=== PATIENT | female | born 1950 | race Caucasian/White ===

== ENCOUNTER 2016-05-12 14:48 | Emergency (ER) | payer MEDICARE, MEDICAID ==
[~2016-05-12] VITALS: Ht 167.6 cm; Wt 92.5 kg
[~2016-05-12 14:48] MED LIST: ALBUTEROL2.5 MG/NEB IN; ALDACTONE50 MG PO; AMOXICILLIN AND1 TA2 PO; ATENOLOL25 MG PO; ATENOLOL50 MG PO; AUGMENTIN 875-1 EACH PO; B COMPLEX & B121 TAB PO; B12-METHYL1000 MCG PO; CARAFATE 11 GM/10 ML PO; CARAFATE1 GM PO; CLEARLAX17 GM/Dose PO; COLCHICINE0.6 MG PO; COLCRYS0.6 M1 PO; CORTISPORIN (GE10 M1 OT; CYMBALTA60 MG PO; DILAUDID2 MG PO; DULERA1 AR1 IH; ESTRACE1 MG PO; FIBER CHOICE1 CTB PO; FUROSEMIDE 40MG40 MG PO; GABAPENTIN 400400 MG PO; GABAPENTIN 600600 MG PO; GABAPENTIN300 MG PO; HYDROCODONE1 TABLET PO; K-DUR 20MEQ TA20 MEQ PO; KLOR-CON 1010 MEQ PO; LANSOPRAZOLE30 MG PO; LASIX 20MG. TAB20 MG PO; LASIX40 MG PO; LEVAQUIN500 MG PO; LIPITOR40 M1 PO; LIPITOR80 MG PO; LISINOPRIL 10MG10 MG PO; LISINOPRIL 5MG T5 MG NG; LISINOPRIL10 MG PO; LISINOPRIL2.5 MG PO; LORTAB 10/3251 TAB PO; LORTAB 5/3251 TAB PO; LYRICA100 MG PO; MAG-OX 400400 MG PO; MAG-OX 400MG T400 MG PO; MEDROL 4MG. DOSE4 MG PO; MELATONIN10 M2 PO; MELOXICAM15 MG PO; METFORMIN500 MG PO; METOLAZONE 2.52.5 MG PO; METOLAZONE5 MG PO; METOPROLOL SUCC25 M1 PO; MIRALAX17 GM/PACK PO; NITROGLYCERIN0.4 MG SL; NITROLINGU14.5 GM/BO OR; NORVASC 10MG. T10 MG PO; OMEPRAZOLE40 MG PO; OMNICEF 300 MG300 MG PO; OXYGEN XX; PAROXETINE20 MG NG; PAROXETINE20 MG PO; PAXIL30 MG PO; PAXIL40 MG PO; PERCOCET 325 MG1 TA1 PO; PLAVIX75 MG PO; POTASSIUM CHLO20 ME2 PO; POTASSIUM PO; PREDNICOT10 MG PO; PREDNISONE 20MG20 MG PO; PREMARIN 0.3MG0.3 MG PO; PREMARIN 0.9MG0.9 MG PO; PREMARIN0.625 MG PO; PROTONIX 40MG T40 MG PO; REQUIP2 MG PO; REQUIP4 MG PO; ROPINIROLE12 MG PO; SEROQUEL XR400 MG PO; SEROQUEL50 MG PO; SINGULAIR10 MG PO; SKELAXIN 800MG800 MG PO; SPIRONOLACTONE25 MG NG; SPIRONOLACTONE25 MG PO; SPIRONOLACTONE50 MG PO; SUCRALFATE 1GM T1 GM NG; SYMBICORT1 AE1 IH; TAMIFLU 75MG CA75 MG PO; TESSALON PERLE100 M1 PO; TYLENOL ES500 MG PO; ULORIC80 MG PO; ULTRAM50 MG PO; VENTOLIN H0.09 MG/Ac IH; VERAPAMIL PO; VICODIN 5/500 T1 TAB PO; VITAMIN D50000 I1 PO; ZITHROMAX TRI-500 M1 PO; ZITHROMAX Z PA250 MG PO; ZITHROMAX Z-PA250 M1 PO; ZOFRAN 8MG TABLE8 MG PO; ZYRTEC ALLERGY10 MG PO; [UNRECOGNIZED DRUG - OTHER] IN; [UNRECOGNIZED DRUG - OTHER] IN
[2016-05-12 15:11] LABS: HEMOGLOBIN 12.3 g/dL (12.2-16.2)
[2016-05-12 15:12] LABS: LYMPH # 1.3 K/mm3 (0.7-4.5); LYMPH % 16.5 % (10-50.0)
--- NOTE | 2016-05-12 15:20 | Emergency Room Report ---
History of Present Illness Time Seen by MD Marcum Presenting Problem in Triage Pt arrived:Walked Presenting Problem:PT C/O ABD PAIN THAT STARTED YESTERDAY. 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 N Clinical Suspician of Infection? N Mental Status: 1 - Regular (Normal Baseline) Sepsis Risk:Low Sepsis Risk Have you (or family members/close friends) recently traveled outside the [place]? N If Yes, where/when: Have you had exposure to infectious disease within the past month? N TB? Other? Specify: Source patient, RN notes reviewed Exam Limitations no limitations Comment complains of abd pain since yesterday in the epigastrium and says she is going to the Bathroom a lot but it is not diarrhea. no blood noticed in stool and no vomiting. She is nauseated and says she may have a stomach flud Cardiac Chest Pain Chest pain indicative of cardiac No ALLERGIES Coded Allergies: Sulfa (Sulfonamide Antibiotics) (Intermediate, I-HIVES 09/10/15) Home Medications Active Scripts Cetirizine Hcl (Zyrtec) 10 MG PO DAILY #15 SGL Prov: 09/10/15 Amoxicillin/Potassium Clav (Augmentin 875-125 Tablet) 1 EACH PO BID #20 TAB Prov: 11/15/15 Methylprednisolone (Medrol Dose Yann) 4 MG PO UD #1 YANN Prov: 11/15/15 Reported Medications Paroxetine (Paxil) 40 MG PO QHS Clopidogrel Bisulfate (Plavix) 75 MG PO DAILY Metformin HCL (Metformin) 500 MG PO BID #60 TAB Albuterol Sulfate (Ventolin Hfa) 2 PUFF IH QIDP Albuterol-Ipratropium (Duoneb 0.5 MG-3 MG/3 Ml Soln) 3 ML IN TID Sucralfate (Carafate) 1 GM PO TID Lansoprazole (Lansoprazole) 30 MG PO DAILY Device (Oxygen (Concentrator)) 1 UNIT XX UD #2 Melatonin 10 MG PO QHS Quetiapine Fumarate (Seroquel Xr) 400 MG PO QHS ESTROGENS, CONJUGATED (Premarin) 0.45 MG PO DAILY Furosemide (Furosemide 40MG Tablet) 40 MG PO DAILY LISINOPRIL (Lisinopril) 5 MG PO DAILY Montelukast Sodium (Singulair) 10 MG PO QHS MAGNESIUM OXIDE (Magnesium Oxide) 400 MG PO QHS GABAPENTIN (Gabapentin) 400 MG PO QID Atorvastatin Calcium (Atorvastatin) 80 MG PO QHS ROPINIROLE HCL (Requip XL) 8 MG PO QHS Spironolactone (Spironolactone) 25 MG PO BID MOMETASONE/FORMOTEROL (Dulera 200 Mcg/5 Mcg Inhaler) 2 PUFFS IH BID #13 History Medical History General CAD? No Angina: Yes [place]: No Hypertension? Yes Hyperlipidemia? Yes CHF? Yes DVT? No PE? No COPD? Yes Asthma? Yes Anemia? No GERD? No Gastric ulcers? No GI Bleed? No Hernia? No Thyroid Problems? No Hypothyroidism? No CVA? Yes Seizures? Yes Diabetes? Yes Insulin Dependent: No Insulin Pump: No Home FSBS? No Renal Insuffiency? No End Stage Renal Disease? No UTI? Yes Stones? No BPH? No GB Disease: No Nephritic Syndrome? No Asplenia? No Hepatitis? No Sickle Cell Disease? No Arthritis? No Migraines? No Cataracts? Yes Glaucoma? No MRSA? No HIV? No TB? No Anxiety? No Depression? No Cancer? Yes Site: LUNG, SKIN CA More? No Immunization Hx DT/Tetanus 10/15/12 Flu [id number] Flu Season Pneumonia Received In Past Surgical Hx Previous Surgery?Y L-LUMPECTOMY X2 TEETH EXTRACTED, UPPER TUMOR FROM R WRIST Tubal Ligation R-UPPER AND LOWER LOBECTO HYSTERECTOMY SKIN CANCER OF NOSE BI-LAT CATARACTS RIGHT ANKLE Family History Family Hx Diabetes Yes CAD Yes Hypertension Yes Hyperlipidemia Yes Cancer Yes TB No Social History Smoking Hx Smoker: Current Every Day Smoker Tobacco: Yes Type Cigarettes Packs/day < 1 Pack Alcohol Alcohol: No Review of Systems All Other Systems Reviewed and Negative Constitutional see HPI Gastrointestinal see HPI Physical Exam Vital Signs Vital Signs Date Time Temp Pulse Resp B/P Pulse O2 O2 Flow FiO2 Ox Delivery Rate 05/12 1733 87 16 157/79 96 05/12 1643 92 16 131/67 96 05/12 1552 95 16 150/74 95 05/12 1528 108 16 157/79 95 05/12 1451 98.5 110 16 170/99 95 General Appearance normal appearance, mild distress Respiratory Status No: respiratory distress. Lung Sounds bilateral: normal breath sounds. Cardiovascular normal exam, regular rate/rhythm, tachycardia Gastrointestinal normal bowel sounds, no guarding, no rebound, tenderness (in epigastrium) Neurologic alert, early intervention specialist II-XII nml as tested Medical Decision Making LABS/Meds/Orders Pt receiving controlled substance in ED? No Results/Orders Laboratory Tests 05/12/16 1634: Urine Color YELLOW, Urine Appearance CLEAR, Urine pH 5.5, Ur Specific [place] 1.010, Urine Protein NEGATIVE, Urine Ketones NEGATIVE, Urine Blood NEGATIVE, Urine Nitrate NEGATIVE, Urine Bilirubin NEGATIVE, Urine Urobilinogen 0.2, Ur Leukocyte Esterase NEGATIVE, Urine RBC 3-5, Urine WBC 3-5, Ur Squamous Epith Cells 3-5, Urine Bacteria TRACE, Urine Glucose NEGATIVE 05/12/16 1530: Chlamy pneum (TEM-PCR) NOT DETECTED, Adenovirus (PCR) NOT DETECTED, B. pertussis DNA (PCR) NOT DETECTED, Coronavirus OC43 (PCR) NOT DETECTED, Coronavirus HKU1 ( PCR) NOT DETECTED, Coronavirus 229E (PCR) NOT DETECTED, Coronavirus NL63 (PCR) NOT DETECTED, Human Metapneumovirus NOT DETECTED, Influenza A (H1) PCR NOT DETECTED, Influ A (H1N1/09) PCR NOT DETECTED, Influenza A (H3) PCR NOT DETECTED, Influenza Type A (PCR) NOT DETECTED, Influenza Type B (PCR) NOT DETECTED, M. pneumoniae (PCR) NOT DETECTED, Parainfluenza 1 (PCR) NOT DETECTED, Parainfluenza 2 (PCR) NOT DETECTED, Parainfluenza 3 (PCR) NOT DETECTED, Parainfluenza 4 (PCR) NOT DETECTED, RSV (PCR) NOT DETECTED, Entero/Rhino (PCR) NOT DETECTED 05/12/16 1458: Sodium 131 L, Potassium 4.5, Chloride 96 L, Carbon Dioxide 28, BUN 27 H, Creatinine 1.1 H, Estimated Creat Clear 76, Estimated GFR (MDRD) 50 L, Glucose 111 H, Calcium 8.6, Total Bilirubin 0.3, AST 21, ALT 32, Alkaline Phosphatase 150 H, Total Protein 7.5, Albumin 3.2 L, Globulin 4.3 H, Albumin/Globulin Ratio 0.7 L, Amylase 26, Lipase 86, WBC 8.0, RBC 4.83, Hgb 12.3, Hct 37.2, MCV 77.1 L, RDW 17.0, Plt Count 333, Gran % 78.1, Gran # 6.2, Lymphocytes % 16.5, Monocytes % 5.4, Lymphocytes # 1.3, Monocytes # 0.4, PUBS MCHC 33.1, MCH 25.5 L Current Medication Orders Sig/Curry Start time Last Medication Dose Route Stop Time Status Admin Diatrizoate Meglum/ 0 .STK-MED ONE 05/12 1545 DC Diatrizoate Sod .ROUTE Pantoprazole Sodium 0 .STK-MED ONE 05/12 1545 DC IV Sodium Chloride 1,000 ML .STK-MED ONE 05/12 1545 DC IV Ondansetron HCl 0 .STK-MED ONE 05/12 1544 DC .ROUTE Diatrizoate Meglum/ 30 ML ONCE ONE 05/12 1530 DC 05/12 Diatrizoate Sod PO 05/12 1531 1549 Ondansetron HCl 4 MG ONCE ONE 05/12 1530 DC 05/12 IV 05/12 1531 1549 Pantoprazole Sodium 40 MG ONCE ONE 05/12 1530 DC 05/12 IV 05/12 1531 1549 Sodium Chloride 1,000 ML .Q1H1M 05/12 1530 DC 05/12 IV 05/12 1630 1550 Sodium Chloride 10 ML PRN PRN 05/12 1530 AC IV 05/13 1521 Sodium Chloride 10 ML ONCE ONE 05/12 1530 DC IV 05/12 1531 Sodium Chloride 10 ML PRN PRN 05/12 1500 AC IV 05/13 1459 Orders Procedure Date/time Status DIET-NOTHING BY MOUTH 05/[address] ABD & PELVIS W/O CONTRAST 05/[address] ABD/PELVIS REQ 05/12 1522 Complete UPPER RESPIRATORY PANEL, PCR 05/12 1522 Complete URINALYSIS/COMPLETE 05/12 1522 Complete IV SALINE LOCK 05/12 1459 Active LIPASE 05/12 1459 Complete CBC WITH AUTO DIFF 05/12 1459 Complete CHEM 12 PROFILE 05/12 1459 Complete AMYLASE 05/12 1459 Complete XRAY/CT/US XRAY/CT/US CT abdomen, pelvis CT interpretation by discussed w/radiologist Time results known: 1854 CT Results No acute finding...I feel she has sludge in gallbladder Departure Departure Time of Disposition 1855 Disposition DC Home or Self Care(routine) Clinical Impression Primary Impression: Abdominal pain Qualifiers: Abdominal location: generalized Qualified Code: R10.84 - Generalized abdominal pain Condition STABLE Referrals Abhishek Breaux MD (Family): 3 Days-Call Office Patient Instructions DI for Abdominal Pain-Adult Additional Instructions Follow up iwth Dr. Breaux to get US of Gallbladder and if that is negative for stones, get a HIDA scan to check for a diseased GB. Discharge Counseling Counseled pt/family regarding diagnosis, test results, medications/RX, home care, follow up needs Prescriptions Current Visit Scripts ONDANSETRON HCL (Zofran 4MG Tab) 4 MG PO Q6HP PRN NAUSEA AND VOMITING #40 TAB ED Critical Care Critical Care No If Critical Care minutes are documented, the time involved in the performance of seperately reportable procedures was not counted toward critical care time documented. I directly delivered medical care to this critically ill and/or injured patient. Timely evaluation and treatment was necessary to address the significant organ system(s) dysfunction present in this patient. at 1850
[2016-05-12 15:37] LABS: CORONAVIRUS 229E NOT DETECTED (NOT DETECTE); CORONAVIRUS HKU 1 NOT DETECTED (NOT DETECTE); CORONAVIRUS NL63 NOT DETECTED (NOT DETECTE); CORONAVIRUS OC43 NOT DETECTED (NOT DETECTE); RHINOVIRUS/ENTEROVIRUS NOT DETECTED (NOT DETECTE)
[2016-05-12 16:39] LABS: URINE BILIRUBIN - DIPSTICK NEGATIVE (NEG); URINE BLOOD NEGATIVE (NEG)
[2016-05-12] MEDS ORDERED: ZOFRAN4 MG PO (18:58)
[2016-05-12 19:10] VITALS: BP 157/79
--- NOTE | 2016-05-13 06:37 | RADIOLOGY REPORT PS360 ---
CT ABD PELVIS W/O CONTRAST CLINICAL INDICATION: Lower abdominal pain ABD PAIN ORDERING PHYSICIAN: Darius Sandoval MD PATIENT AGE: 65 years COMPARISON: 01/13/2013 TECHNIQUE: Axial images obtained with sagittal and coronal reformats. PROCEDURE: Oral Contrast: None IV Contrast: None . FINDINGS: Lower thorax: Centrilobular emphysematous change. There are noncalcified nodules in the lung bases measured at 6 mm in the left upper lobe and 4 mm in the left lower lobe ABDOMEN: Liver: No masses or biliary dilatation. Gallbladder: Nondistended. No radio opaque stones. Pancreas: No masses or peripancreatic fluid collections. Spleen: Unremarkable. Adrenals: Unremarkable Kidneys/ureters: No masses. No renal calculi. No hydronephrosis. No perinephric fluid collections. No ureteral dilatation or obvious ureteral calculi. Stomach bowel: Diverticulum of the duodenal C-loop Appendix: No evidence of appendicitis. PELVIS: Reproductive: Hysterectomy Bladder: Nondistended. No obvious stones or masses. ABDOMEN & PELVIS: Peritoneum: No abnormal fluid collections. No obvious inflammatory changes. No free air. Lymph nodes: No enlarged lymph nodes apparent. Vasculature: No evidence of abdominal aortic aneurysm. No retroperitoneal hemorrhage evident. Bones: Old right lateral rib fractures IMPRESSION: 1. No acute intra-abdominal or pelvic pathology. 2. Nonspecific nonacute findings as described above
[2016-06-17] MEDS ORDERED: ZITHROMAX Z PA250 MG PO (10:30)
[2016-06-17] MEDS ORDERED: PREDNISONE 20MG20 MG PO (10:30)
[2016-07-06] MEDS ORDERED: ZOFRAN ODT4 MG PO (18:58)
[2016-07-06] MEDS ORDERED: DIABETIC T100 MG/51 PO (18:58)
[2016-07-06] MEDS ORDERED: ZITHROMAX Z PA250 MG PO (18:58)
[2016-07-12] MEDS ORDERED: HYDROCODONE/ACE1 TA5 PO (14:02)
[2016-07-13] MEDS ORDERED: DILTIAZEM HCL90 MG PO (08:54)
[2016-07-13] MEDS ORDERED: ELIQUIS2.5 MG PO (08:54)
[2016-07-17] MEDS ORDERED: KEFLEX 500MG.500 MG PO (08:57)
== END 2016-05-12 19:11 | disposition home or self-care (01) ==
LOC: ER 14:48
PROVIDERS: General Practice
DX: R10.84 Generalized abdominal pain (principal); Z72.0 Tobacco use; E11.9 Type 2 diabetes mellitus without complications; J44.9 Chronic obstructive pulmonary disease, unspecified; I10 Essential (primary) hypertension
CPT/HCPCS: J2405

== ENCOUNTER → 2016-05-23 | Outpatient (CLI) | payer MEDICARE, MEDICAID ==
[~2016-05-23] MED LIST changes: +DIABETIC T100 MG/51 PO; +DILTIAZEM HCL90 MG PO; +ELIQUIS2.5 MG PO; +HYDROCODONE/ACE1 TA5 PO; +KEFLEX 500MG.500 MG PO; +LEVOTHYROXINE0.05 MG PO; +TRIAMCINOL80 GM/TUBE TP; +ZOFRAN ODT4 MG PO; +ZOFRAN4 MG PO
--- NOTE | 2016-05-23 10:46 | RADIOLOGY REPORT PS360 ---
US RUQ-(ABD LTD)1ORGAN/QUAD/FU HISTORY: Right upper quadrant pain with nausea GB STONE ORDERING PHYSICIAN: Abhishek Breaux MD PATIENT AGE: 65 years COMPARISON: None FINDINGS: PANCREAS: Unremarkable. No obvious mass or abnormal fluid collection. No ductal dilatation LIVER: No focal liver lesions demonstrated. Homogeneous echogenicity. No intrahepatic biliary ductal dilatation evident RIGHT KIDNEY: Unremarkable. Normal size and echogenicity. No hydronephrosis GALLBLADDER: No gallstones, gallbladder wall thickening, pericholecystic fluid, or biliary dilatation. IMPRESSION: Negative gallbladder/right upper quadrant ultrasound
== END ==
LOC: RAD 07:49
DX: K80.20 Calculus of gallbladder without cholecystitis without obstruction (principal)

== ENCOUNTER 2016-07-24 15:38 | Observation (INO) | payer MEDICARE, MEDICAID ==
[~2016-07-24] VITALS: Ht 170.2 cm; Wt 108.0 kg
[~2016-07-24 15:38] MED LIST changes: -LEVOTHYROXINE0.05 MG PO; -TRIAMCINOL80 GM/TUBE TP
[2016-07-24 17:31] VITALS: BP 127/68
[2016-07-24 17:47] VITALS: BP 127/68
--- NOTE | 2016-07-24 17:49 | RADIOLOGY REPORT PS360 ---
CHEST(2 VIEWS-NOT PORTABLE) COMPARISON: PA and lateral chest 07/12/2016 HISTORY: Persistent cough TECHNIQUE: AP and lateral upright chest FINDINGS: The lung hunt are fairly well-expanded. There are surgical clips in the right hilar region as noted previously. There is mild deformity of the right fifth rib as noted previously. There is mild generalized cardio megaly without evidence of failure. There is no pleural fluid. IMPRESSION: Nonacute chest findings
[2016-07-24 20:17] VITALS: BP 123/53
[2016-07-24 20:48] VITALS: BP 123/53
[2016-07-25] VITALS (8 sets, daily range): BP systolic 122–165; BP diastolic 63–78
[2016-07-25 06:31] LABS: LYMPH % 17.3 % (10-50.0)
[2016-07-25 06:38] LABS: HEMOGLOBIN 9.5 g/dL (12.2-16.2)
--- NOTE | 2016-07-25 07:17 | PHARMACY CLINIC NOTE ---
Patient Demographics Patient Demographics Admission date: 07/24/16 Date: 07/25/16 Time: 0717 Allergies Coded Allergies: Sulfa (Sulfonamide Antibiotics) (Intermediate, I-HIVES 07/17/16) HEIGHT- FT: 5 IN: 7.00 K.437 VTE General Information Labs: Laboratory Tests 07/25 0620 Hematology Hgb (12.2 - 16.2 g/dL) 9.5 L Hct (37.0 - 47.0 %) 30.1 L Plt Count (142 - 424 K/mm3) 332 Disclaimer The following section includes nursing documentation that has been pulled in for pharmacy review. Patient's VTE score: 7 Patient's VTE Risk: MOD RISK Clinical trial participant? No VTE prophylaxis [id number] [id number] VTE prophylaxis ordered? Yes Type of prophylaxis/treatment: Lovenox at 0717
--- NOTE | 2016-07-25 08:11 | ACUTE CARE PROGRESS NOTE (QUA) ---
Progress Notes Subjective Date 07/25/16 Time 0807 Note Patient had a fairly good diuresis. His breathing somewhat better. Heart rate remains irregular but rate controlled, breathing much easily. Legs are improved and softer but continued to be afflicted with significant edema. Objective Findings Last VS-Temp:98.5 B/P:134/74 Pulse:97 Resp:20 SaO2:97 OXYGEN Last weight lbs:239 oz:1 K.437 Method:Bed Scales Assessment/Plan Problem List 1. Atrial fibrillation 2. Peripheral edema Patient condition Improving, More diuresis. Check with cardiology consult. This inpt stay is expected to cross 2 MNs from start of care Yes at 0811
[2016-07-25] MEDS ORDERED: LEVOTHYROXINE0.05 MG PO (09:42)
--- NOTE | 2016-07-25 16:15 | CONSULT NOTE ---
Standard Demographics Patient Demo Date of Consultation: 07/25/16 Referring Provider: Abhishek Breaux MD Reason for Consultation: PULMONARY EDEMA, PERIPHERAL EDEMA, ATRIAL FIBRILLATION, PRIMARY DIAGNOSIS: PULMONARY EDEMA AND PERIPHERAL EDEMA Problem list Problem list: 1. Predominantly right-sided heart failure 2. Chronic atrial fibrillation 3. Peripheral edema. 4. Chronic obstructive pulmonary disease 5. History of anemia/gastrointestinal bleed 6. Obesity History of present illness: History of present illness: Chief complaint Shortness of breath with physical activity, lower extremity edema. Briefly Mrs. Hartman is a 65-year-old female with known history of chronic atrial fibrillation, not a good candidate for systemic anticoagulation in the past due to gastrointestinal blood loss and anemia, chronic obstructive pulmonary disease , who presents to the hospital with increasing shortness of breath with minimal physical activity and worsening lower extremity edema. She describes no orthopnea or PND, she describes no exertional chest pain. She had an echocardiogram done on the previous admission which showed an ejection fraction of 50 percent, technically limited study. She also complains of intermittent some blood in her stool. Past Medical History: General: Hypertension Yes CVA No Seizures Yes TB No COPD Yes Asthma Yes Diabetes Yes Insulin Dependent No Insulin Pump No Angina No [place] No Hyperlipidemia Yes Urinary Yes Cancer Yes Rheumatic H.D. No Ulcers No MRSA No GB Disease No Other DEPRESSION,GOUT Additional hx [place] Past Surgical HX: Previous Surgery?Y L-LUMPECTOMY X2 TEETH EXTRACTED, UPPER TUMOR FROM R WRIST Tubal Ligation R-UPPER AND LOWER LOBECTO HYSTERECTOMY SKIN CANCER OF NOSE BI-LAT CATARACTS RIGHT ANKLE Allergies Coded Allergies: Sulfa (Sulfonamide Antibiotics) (Intermediate, I-HIVES 07/17/16) Home medications: Active Scripts DILTIAZEM HCL (Diltiazem Hcl) 90 MG PO TID #90 TAB Ref 1 Prov: 07/13/16 Apixaban (Eliquis) 2.5 MG PO BID #60 TAB Ref 1 Prov: 07/13/16 Reported Medications Paroxetine (Paxil) 40 MG PO QHS Conjugated Estrogens (Premarin 0.3MG. Tablet) 0.3 MG PO DAILY LISINOPRIL (Lisinopril) 2.5 MG PO DAILY ROPINIROLE HCL (Ropinirole) 12 MG PO QHS Levothyroxine Sodium (Levothyroxine) 0.05 MG PO DAILY GABAPENTIN (Gabapentin) 400 MG PO BID HYDROCODONE/ACETAMINOPHEN (Hydrocodon-Acetaminophn 10-325) 1 TAB PO TID Metformin HCL (Metformin) 500 MG PO BID #60 TAB Albuterol Sulfate (Ventolin Hfa) 2 PUFF IH QIDP Albuterol-Ipratropium (Duoneb 0.5 MG-3 MG/3 Ml Soln) 3 ML IN TID Sucralfate (Carafate) 1 GM PO TID Lansoprazole (Lansoprazole) 30 MG PO DAILY Device (Oxygen (Concentrator)) 1 UNIT XX UD #2 Melatonin 10 MG PO QHS Quetiapine Fumarate (Seroquel Xr) 400 MG PO QHS Furosemide (Furosemide 40MG Tablet) 40 MG PO DAILY Montelukast Sodium (Singulair) 10 MG PO QHS MAGNESIUM OXIDE (Magnesium Oxide) 400 MG PO QHS Atorvastatin Calcium (Atorvastatin) 80 MG PO QHS Spironolactone (Spironolactone) 25 MG PO BID MOMETASONE/FORMOTEROL (Dulera 200 Mcg/5 Mcg Inhaler) 2 PUFFS IH BID #13 Current Medications: Current Medications Digoxin 0.125 MG DAILY PO Atorvastatin Calcium 80 MG QHS PO Paroxetine HCl 40 MG QHS PO Ropinirole HCl 8 MG QHS PO Diltiazem HCl 60 MG Q6H PO Acetaminophen 0 .STK-MED ONE PO (DC) Spironolactone 25 MG DAILY PO Spironolactone 0 .STK-MED ONE .ROUTE (DC) Acetaminophen/Hydrocodone Bitart 0 .STK-MED ONE PO (DC) Albuterol/Ipratropium 3 ML TIDRT INH Acetaminophen/Hydrocodone Bitart 0 .STK-MED ONE PO (DC) Acetaminophen/Hydrocodone Bitart 1 TAB TID PO Albuterol/Ipratropium 3 ML TID INH (DC) Diltiazem HCl 60 MG TID PO (DC) Gabapentin 400 MG BID PO Acetaminophen 650 MG Q6HP PRN PO Furosemide 0 .STK-MED ONE .ROUTE (DC) Furosemide 100 MG ONCE ONE IV (DC) Sodium Chloride 10 ML PRN PRN IV Acetaminophen/Hydrocodone Bitart 1 TAB ONCE ONE PO (DC) Diagnostic Test (Pha) 1 EACH W/MEALS&HS FS Insulin Human [rDNA origin] SEE ADMIN CRITERIA FOR MEDIUM INTENSITY W/MEALS&HS SC Enoxaparin Sodium 0 .STK-MED ONE SC (DC) Furosemide 100 MG ONCE ONE IV (DC) Influenza Virus Vaccine Quadrival 0.5 ML PRN PRN IM Nicotine 21 MG DAILYP PRN TD Enoxaparin Sodium 40 MG DAILY SC Immunization HX DT/Tetanus 10/15/12 Flu 2015-FSN Pneumonia RECEIVED IN PAST TB Test in last year No Family history Family HX Diabetes Yes CAD Yes Hypertension Yes Hyperlipidemia Yes Cancer Yes TB No Social Hx: Smoking HX Tobacco Yes Type Cigarettes Packs/day < 1 PACK Are you/the child exposed to second-hand smoke: Yes Alcohol Alcohol: No Hx of Drug Use Drug Use? No Review of systems: Constitutional see HPI. Respiratory No: SOB with excertion, SOB at rest, wheezing. Cardiovascular see HPI Gastrointestinal/Abdominal see HPI Genitourinary No: see HPI. Musculoskeletal joint pain. Neurological No: no symptoms reported. Exam: Admission Vital Signs: 1ST Vital Signs Result Date Time Pulse Ox 93 07/24 1731 O2 Delivery ROOM AIR 07/24 1731 B/P 127/68 07/24 1731 Temp 97.6 07/24 1731 Pulse 81 07/24 1731 Resp 20 07/24 1731 O2 Flow Rate 2 07/245 Last Vital Signs: Vital Signs Result Date Time O2 Flow Rate 2 07/25 1521 Resp 20 07/25 1351 Pulse Ox 95 07/25 1240 B/P 135/72 07/25 1240 O2 Delivery OXYGEN 07/25 1240 Temp 97.4 07/25 1240 Pulse 84 07/25 1240 Exam General appearance: normal appearance, alert, active, awake Cardiovascular: irregularly irregular, peripheral edema Respiratory: basilar rales, diminished breath sounds, rhonchi ABD: non-distended, normal bowel sounds Extremities: edema Musculoskeletal: normal exam Skin: dry, intact Laboratory data: Laboratory Tests 07/25/16 1153: POC Glucose 106 07/25/16 0620: Sodium 134 L, Potassium 4.5, Chloride 96 L, Carbon Dioxide 35 H, BUN 43 H, Creatinine 1.3 H, Estimated Creat Clear 76, Estimated GFR (MDRD) 41 L, Glucose 88, Calcium 9.0, WBC 11.7 H, RBC 3.84 L, Hgb 9.5 L, Hct 30.1 L, MCV 78.6 L, RDW 15.0, Plt Count 332, MPV 6.8 L, Gran % 77.2, Gran # 9.0 H, Lymphocytes % 17.3, Monocytes % 3.5, Eosinophils % 1.9, Basophils % 0.2, Lymphocytes # 2.0, Monocytes # 0.4, Eosinophils # 0.2, Basophils # 0.0, PUBS MCHC 31.4 L, MCH 24.6 L 07/24/162005: POC Glucose 142 H 07/24/16 1720: Sodium 135 L, Potassium 4.4, Chloride 97 L, Carbon Dioxide 32, BUN 45 H, Creatinine 1.5 H, Estimated Creat Clear 65, Estimated GFR (MDRD) 35 L, Glucose 99, Calcium 8.9, Total Bilirubin 0.2, AST 15, ALT 30, Alkaline Phosphatase 119 H, Total Protein 6.9, Albumin 3.2 L, Globulin 3.7 H, Albumin/Globulin Ratio 0.9 L 07/24/16 1654: POC Glucose 112 H Additional information: Impression 1. Chronic atrial fibrillation 2. Chronic obstructive pulmonary disease exacerbation 3. Hypertension 4. Congestive heart failure predominantly right-sided 5. History of anemia and gastrointestinal bleed. Recommend 1. Continue IV Lasix, add Aldactone 25 mg by mouth daily. 2. Increase Cardizem 60 mg every 6 hours. 3. Dig 0.125 mg by mouth daily 4. Replace electrolytes as needed. 5. Will follow with you Plan: Assessment: see above Recommendations: See above at 1615
[2016-07-26 05:09] VITALS: BP 130/58
[2016-07-26 07:04] LABS: HEMOGLOBIN 10.1 g/dL (12.2-16.2); LYMPH # 1.8 K/mm3 (0.7-4.5); LYMPH % 15.8 % (10-50.0)
[2016-07-26 07:51] VITALS: BP 138/84
--- NOTE | 2016-07-26 08:56 | ACUTE CARE PROGRESS NOTE (QUA) ---
Progress Notes Subjective Date 07/26/16 Time 0730 Note Patient resting in bed. She ate 100% of her breakfast. She has had significant improvement of shortness of breath and edema with diuresis. States "I feel better" this morning. Alert and oriented x3. Irregularly, irregular. 1-2+ BLE edema. LS with wheezes throughout, faint crackled left base. Abdomen soft, and nontender. Normoactive bowel sounds. Patient/family reports: feeling better Nursing reports: no complaints Objective Findings Last VS-Temp:98.7 B/P:138/84 Pulse:78 Resp:20 SaO2:94 ROOM AIR Last weight lbs:239 oz:2 K.465 Method:Bed Scales Reviewed: medications, vital signs, lab results, consult note Assessment/Plan Problem List 1. Atrial fibrillation Assessment/Plan: Cardiology is following. Cardizem was increased. Digoxin and aldactone added. Continue IV Lasix. Plan to D/C home tomorrow. 2. Peripheral edema Assessment/Plan: See above. 3. COPD (chronic obstructive pulmonary disease) Assessment/Plan: Patient has benefited from home nebulizer treatments. Plan to continue nebulizer treatments at home after discharge. Patient requests replacement nebulizer machine. Will arrange. Patient condition Improving Plan: initiate discharge plan, Plan to d/c home tomorrow This inpt stay is expected to cross 2 MNs from start of care Yes at 0856
[2016-07-26 09:30] VITALS: BP 138/84
--- NOTE | 2016-07-26 15:20 | ACUTE CARE PROGRESS NOTE (QUA) ---
Progress Notes Subjective Date 07/26/16 Time 1445 Note Cardiology progress note Patient denies any chest pain, has improvement in shortness of breath, significant improvement in the lower extremity edema. She describes no orthopnea PND she denied any hematemesis melena nausea or vomiting overall she feels better. Medications: Reviewed Telemetry: Remains in atrial flutter fibrillation with rate control Labs: Reviewed Physical exam Pulse 89 bpm irregular, blood pressure 130/84 HEENT no JVP no bruit Lungs: Decreased breath sounds bilaterally with occasional rhonchi Cardiovascular exam: S1-S2 no S3 distant heart sound Abdomen: Soft bowel sounds present Extremity: 1+ pitting edema, improved Impression 1. Chronic atrial fibrillation rate well controlled on current regimen 2. Predominantly right-sided heart failure clinically improving. 3. Chronic obstructive pulmonary disease. 4. Anemia. Plan 1. Continue with current regimen, clinically improving, will switch to oral diuretics tomorrow. 2. Replace electrolytes as needed. Assessment/Plan Problem List 1. Atrial fibrillation 2. Peripheral edema 3. COPD (chronic obstructive pulmonary disease) This inpt stay is expected to cross 2 MNs from start of care Yes at 0825
[2016-07-26 16:38] VITALS: BP 154/66
[2016-07-26 20:10] VITALS: BP 128/65
[2016-07-26 20:57] VITALS: BP 128/65
[2016-07-27 00:17] VITALS: BP 133/64
[2016-07-27 04:07] VITALS: BP 134/73
[2016-07-27 07:31] VITALS: BP 155/95
--- NOTE | 2016-07-27 08:06 | ACUTE CARE PROGRESS NOTE (QUA) ---
Progress Notes Subjective Date 07/27/16 Time 0756 Note Patient is feeling better today. States that she is able to get up and move around well. States her breathing is easier today and she is ready to go home. Peripheral edema resolved. Objective Exam General appearance: normal appearance, alert, awake, well-nourished Eyes: EOM's w/normal ROM ENT: normal exam Neck: normal inspection, non-tender Cardiovascular: normal peripheral pulses, irregularly irregular Respiratory: good air movement, wheezing (throughout) ABD: non-distended, normal bowel sounds, no rebound, soft, no tenderness Extremities: moves all, normal capillary refill Musculoskeletal: equal muscle strength Skin: normal exam Neuro: alert, normal mood/affect, oriented, speech clear Reviewed: medications, vital signs, lab results, nursing notes Assessment/Plan Problem List 1. Atrial fibrillation 2. Peripheral edema 3. COPD (chronic obstructive pulmonary disease) Plan: Will order BMP today. Will discharge home if BMP is appropriate. Will make medicine changes as noted. This inpt stay is expected to cross 2 MNs from start of care Yes at 0805
--- NOTE | 2016-07-27 09:16 | DISCHARGE SUMMARY STANDARD ---
Demographics Admit date: 07/24/16 Discharge date: 07/27/16 History of present illness History of present illness Shortness of breath with physical activity, lower extremity edema. Briefly Mrs. Hartman is a 65-year-old female with known history of chronic atrial fibrillation, not a good candidate for systemic anticoagulation in the past due to gastrointestinal blood loss and anemia, chronic obstructive pulmonary disease , who presents to the hospital with increasing shortness of breath with minimal physical activity and worsening lower extremity edema. She describes no orthopnea or PND, she describes no exertional chest pain. She had an echocardiogram done on the previous admission which showed an ejection fraction of 50 percent, technically limited study. She also complains of intermittent some blood in her stool. Above note cardiology consult. Patient was admitted from my office with shortness of air and increasing pedal edema. Please see H&P written in the chart for details. Hospital Course Hospital Course: Patient was admitted, diuresis with intravenous Lasix and responded well with improvement in her Starling curve with improving creatinine. This morning she was back to her baseline weight and pedal edema status. She'll be discharged home with enhanced diuretic therapy and close followup in my office. Discharge diagnoses Problem List 1. Atrial fibrillation 2. Peripheral edema 3. COPD (chronic obstructive pulmonary disease) Medications Medications: Discharge meds are as noted. Follow up Follow up in office in: 4 DAYS with: Abhishek Breaux MD at 0915
[2016-07-27] MEDS ORDERED: SPIRONOLACTONE25 MG PO (09:17)
[2016-07-27 10:28] VITALS: BP 155/95
[2016-07-28] MEDS ORDERED: TRIAMCINOL80 GM/TUBE TP (11:29)
== END 2016-07-27 10:05 | disposition home or self-care (01) ==
LOC: 2ND 15:38
PROVIDERS: Internal Medicine Adolescent Medicine
DX: I48.2 Chronic atrial fibrillation (principal); D64.9 Anemia, unspecified; J44.9 Chronic obstructive pulmonary disease, unspecified; R06.00 Dyspnea, unspecified; R60.9 Edema, unspecified
CPT/HCPCS: G0378

== ENCOUNTER 2016-07-28 11:09 | Emergency (ER) | payer MEDICARE, MEDICAID ==
[~2016-07-28] VITALS: Ht 170.2 cm; Wt 96.2 kg
[~2016-07-28 11:09] MED LIST changes: +LEVOTHYROXINE0.05 MG PO
[2016-07-28] MEDS ORDERED: TRIAMCINOL80 GM/TUBE TP (11:29)
[2016-07-28 11:32] VITALS: BP 147/79
--- NOTE | 2016-07-28 11:32 | Urgent Treatment Center Report ---
History of Present Issue Date/Time Seen by Provider 07/28/16 1126 Visit Reason Pt arrived:Walked Presenting Problem:PT STATES RASH TO FEET AND LEGS THAT SHE NOTICED YESTERDAY WHEN SHE GOT OUT OF THE HOSPITAL. STATES HER FLUID PILL WAS INCREASED. Location if Accident: Onset of symptoms date/time:07/27/16/ or onset unknown for:MEDICAL HX UNKNOWN Have you (or family members/close friends) recently traveled outside the [place]? N If Yes, where/when: Have you had exposure to infectious disease within the past month? TB? Other? Specify: Source patient Exam Limitations no limitations Comment 65-year-old female presents for rash on bilateral lower extremities and feet. Patient states she was discharged from the hospital yesterday and believes it was stopped she wore on her legs. Has been using [id number] itch cream with no improvement ALLERGIES Coded Allergies: Sulfa (Sulfonamide Antibiotics) (Intermediate, I-HIVES 07/17/16) Home Medications Active Scripts DILTIAZEM HCL (Diltiazem Hcl) 90 MG PO TID #90 TAB Ref 1 Prov: 07/13/16 Apixaban (Eliquis) 2.5 MG PO BID #60 TAB Ref 1 Prov: 07/13/16 Spironolactone (Spironolactone) 50 MG PO BID #60 TAB Ref 1 Prov: 07/27/16 Reported Medications Paroxetine (Paxil) 40 MG PO QHS Conjugated Estrogens (Premarin 0.3MG. Tablet) 0.3 MG PO DAILY LISINOPRIL (Lisinopril) 2.5 MG PO DAILY ROPINIROLE HCL (Ropinirole) 12 MG PO QHS Levothyroxine Sodium (Levothyroxine) 0.05 MG PO DAILY GABAPENTIN (Gabapentin) 400 MG PO BID HYDROCODONE/ACETAMINOPHEN (Hydrocodon-Acetaminophn 10-325) 1 TAB PO TID Metformin HCL (Metformin) 500 MG PO BID #60 TAB Albuterol Sulfate (Ventolin Hfa) 2 PUFF IH QIDP Albuterol-Ipratropium (Duoneb 0.5 MG-3 MG/3 Ml Soln) 3 ML IN TID Sucralfate (Carafate) 1 GM PO TID Lansoprazole (Lansoprazole) 30 MG PO DAILY Device (Oxygen (Concentrator)) 1 UNIT XX UD #2 Melatonin 10 MG PO QHS Quetiapine Fumarate (Seroquel Xr) 400 MG PO QHS Furosemide (Furosemide 40MG Tablet) 40 MG PO DAILY Montelukast Sodium (Singulair) 10 MG PO QHS MAGNESIUM OXIDE (Magnesium Oxide) 400 MG PO QHS Atorvastatin Calcium (Atorvastatin) 80 MG PO QHS MOMETASONE/FORMOTEROL (Dulera 200 Mcg/5 Mcg Inhaler) 2 PUFFS IH BID #13 Discontinued Reported Medications Spironolactone (Spironolactone) 25 MG PO BID History Medical History General CAD? No Angina: No [place]: No Hypertension? Yes Hyperlipidemia? Yes CHF? Yes DVT? No PE? No COPD? Yes Asthma? Yes Anemia? No GERD? No Gastric ulcers? No GI Bleed? No Hernia? No Thyroid Problems? Yes Hypothyroidism? Yes CVA? No Seizures? Yes Diabetes? Yes Insulin Dependent: No Insulin Pump: No Home FSBS? No Renal Insuffiency? Yes UTI? Yes Stones? No BPH? No GB Disease: No Nephritic Syndrome? No Asplenia? No Hepatitis? No Sickle Cell Disease? No Arthritis? Yes Migraines? No Cataracts? Yes Glaucoma? No MRSA? No HIV? No TB? No Anxiety? Yes Depression? Yes Cancer? Yes Site: LUNG, SKIN CA More? Yes Additional hx: [place], AFIB Immunization HX DT/Tetanus 10/15/12 Flu 2015- Flu Season Pneumonia Received In Past Surgical Hx Previous Surgery?Y L-LUMPECTOMY X2 TEETH EXTRACTED, UPPER TUMOR FROM R WRIST Tubal Ligation R-UPPER AND LOWER LOBECTO HYSTERECTOMY SKIN CANCER OF NOSE BI-LAT CATARACTS RIGHT ANKLE Family History Family HX Diabetes Yes CAD Yes Hypertension Yes Hyperlipidemia Yes Cancer Yes TB No Social History Smoking Hx Smoker: Current Every Day Smoker Tobacco: Yes Type Cigarettes Packs/day < 1 Pack Alcohol Alcohol: No Review of Systems All Other Systems Reviewed and Negative Skin see HPI, rash Physical Exam Vital Signs Vital Signs Date Time Temp Pulse Resp B/P Pulse O2 O2 Flow FiO2 Ox Delivery Rate 07/28 1116 98.5 110 22 147/79 95 - WBC >12,000 or <4,000 or 10% bands? 2 or more SIRS Criteria Met? B/P:147/79 MAP:101 Creatinine >2.0? UA output<0.5ml/kg/hr for 2 hrs? Platelet count >100,000? Lactate >2.0mmol/1? INR >1.2 or PTT > than 60 sec? Evidence of Organ Dysfunction? Provider documented clinical suspician of infection? Sepsis Criteria Count: 2 Sepsis Risk: General Appearance normal appearance, WD/WN, no apparent distress Respiratory Status Yes: trachea midline, chest symmetrical. No: respiratory distress. Lung Sounds bilateral: normal breath sounds, lungs clear. Cardiovascular systolic murmur Peripheral Pulses Pulses normal Yes Neurologic alert, normal exam, oriented x 3 Skin normal color, warm/dry, rash Medical Decision Making LABS/Meds/Orders Pt receiving controlled substance in ED? No Departure Departure Time of Disposition 1127 Disposition DC Home or Self Care(routine) Clinical Impression Primary Impression: Contact dermatitis Qualifiers: Contact dermatitis type: irritant Contact dermatitis trigger: unspecified trigger Qualified Code: L24.9 - Irritant contact dermatitis, unspecified cause Condition STABLE Referrals Namita COPELAND,Abhishek (Family) Patient Instructions DI for Contact Dermatitis Additional Instructions Follow-up with PCP on Saturday if no improvement Discharge Counseling Counseled pt/family regarding diagnosis, home care, follow up needs Prescriptions Current Visit Scripts TRIAMCINOLONE ACET 0.1% (Triamcinolone Acetonide) 1 SERGO TP BID 7 Days at 1131
== END 2016-07-28 11:33 | disposition home or self-care (01) ==
LOC: UTC 11:09
DX: L24.9 Irritant contact dermatitis, unspecified cause (principal)

== ENCOUNTER 2016-07-29 09:38 | Emergency (ER) | payer MEDICARE, MEDICAID ==
[~2016-07-29] VITALS: Ht 170.2 cm; Wt 100.2 kg
[~2016-07-29 09:38] MED LIST changes: +TRIAMCINOL80 GM/TUBE TP
--- NOTE | 2016-07-29 10:18 | Urgent Treatment Center Report ---
History of Present Issue Date/Time Seen by Provider 07/29/16 1011 Visit Reason Pt arrived:Walked Presenting Problem:PT STATES GAINING 10 LBS SINCE YESTERDAY. STATES SWELLING IN FEET AND LEGS STATES RASH TO FEET HAS NOT GOTTEN BETTER BUT STATES SHE PICKED UP PRESCRIBED CREAM YESTERDAY AT [employer]NER [employer]. Location if Accident: Onset of symptoms date/time:/ or onset unknown for:MEDICAL HX UNKNOWN Have you (or family members/close friends) recently traveled outside the [place]? N If Yes, where/when: Have you had exposure to infectious disease within the past month? TB? Other? Specify: Patient has rash on her both of her feet that she was prescribed some cream for it. States that she just picked it up yesterday and used it once and she thought she should have seen some improvement by now. Also states that here left ear feels stopped up and wanted it cleaned out ALLERGIES Coded Allergies: Sulfa (Sulfonamide Antibiotics) (Intermediate, I-HIVES 07/17/16) Home Medications Active Scripts DILTIAZEM HCL (Diltiazem Hcl) 90 MG PO TID #90 TAB Ref 1 Prov: 07/13/16 Apixaban (Eliquis) 2.5 MG PO BID #60 TAB Ref 1 Prov: 07/13/16 Spironolactone (Spironolactone) 50 MG PO BID #60 TAB Ref 1 Prov: 07/27/16 TRIAMCINOLONE ACET 0.1% (Triamcinolone Acetonide) 1 SERGO TP BID 7 Days Prov: 07/28/16 Reported Medications Paroxetine (Paxil) 40 MG PO QHS Conjugated Estrogens (Premarin 0.3MG. Tablet) 0.3 MG PO DAILY LISINOPRIL (Lisinopril) 2.5 MG PO DAILY ROPINIROLE HCL (Ropinirole) 12 MG PO QHS Levothyroxine Sodium (Levothyroxine) 0.05 MG PO DAILY GABAPENTIN (Gabapentin) 400 MG PO BID HYDROCODONE/ACETAMINOPHEN (Hydrocodon-Acetaminophn 10-325) 1 TAB PO TID Metformin HCL (Metformin) 500 MG PO BID #60 TAB Albuterol Sulfate (Ventolin Hfa) 2 PUFF IH QIDP Albuterol-Ipratropium (Duoneb 0.5 MG-3 MG/3 Ml Soln) 3 ML IN TID Sucralfate (Carafate) 1 GM PO TID Lansoprazole (Lansoprazole) 30 MG PO DAILY Device (Oxygen (Concentrator)) 1 UNIT XX UD #2 Melatonin 10 MG PO QHS Quetiapine Fumarate (Seroquel Xr) 400 MG PO QHS Furosemide (Furosemide 40MG Tablet) 40 MG PO DAILY Montelukast Sodium (Singulair) 10 MG PO QHS MAGNESIUM OXIDE (Magnesium Oxide) 400 MG PO QHS Atorvastatin Calcium (Atorvastatin) 80 MG PO QHS MOMETASONE/FORMOTEROL (Dulera 200 Mcg/5 Mcg Inhaler) 2 PUFFS IH BID #13 Discontinued Reported Medications Spironolactone (Spironolactone) 25 MG PO BID History Medical History General CAD? No Angina: No [place]: No Hypertension? Yes Hyperlipidemia? Yes CHF? Yes DVT? No PE? No COPD? Yes Asthma? Yes Anemia? No GERD? No Gastric ulcers? No GI Bleed? No Hernia? No Thyroid Problems? Yes Hypothyroidism? Yes CVA? No Seizures? Yes Diabetes? Yes Insulin Dependent: No Insulin Pump: No Home FSBS? No Renal Insuffiency? Yes UTI? Yes Stones? No BPH? No GB Disease: No Nephritic Syndrome? No Asplenia? No Hepatitis? No Sickle Cell Disease? No Arthritis? Yes Migraines? No Cataracts? Yes Glaucoma? No MRSA? No HIV? No TB? No Anxiety? Yes Depression? Yes Cancer? Yes Site: LUNG, SKIN CA More? Yes Additional hx: [place], AFIB Immunization HX DT/Tetanus 10/15/12 Flu 2015- Flu Season Pneumonia Received In Past Surgical Hx Previous Surgery?Y L-LUMPECTOMY X2 TEETH EXTRACTED, UPPER TUMOR FROM R WRIST Tubal Ligation R-UPPER AND LOWER LOBECTO HYSTERECTOMY SKIN CANCER OF NOSE BI-LAT CATARACTS RIGHT ANKLE Family History Family HX Diabetes Yes CAD Yes Hypertension Yes Hyperlipidemia Yes Cancer Yes TB No Social History Smoking Hx Smoker: Current Every Day Smoker Tobacco: Yes Type Cigarettes Packs/day < 1 Pack Alcohol Alcohol: No Review of Systems All Other Systems Reviewed and Negative ENT other (left ear stopped up). Skin rash Physical Exam Vital Signs Vital Signs Date Time Temp Pulse Resp B/P Pulse O2 O2 Flow FiO2 Ox Delivery Rate 07/29 0954 97.8 99 20 113/63 97 General Appearance normal appearance, WD/WN, no apparent distress Ear, Nose, Throat large amount of wax removed from left ear with ear curette. Patient states that she can now hear better out of that ear Respiratory Status Yes: trachea midline, chest symmetrical, non tender chest. No: respiratory distress. 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 No Comment Patient asking to change and increase medication prescribed by her family physician. Patient educated about how she would need to see family doctor to adjust medications used to treat her chronic illnesses Departure Departure Time of Disposition 1016 Disposition DC Home or Self Care(routine) Clinical Impression Primary Impression: Rash Condition STABLE Referrals Abhishek Breaux MD (Family) Patient Instructions DI for Rash Additional Instructions Continue using Triamcinolon Cream on tops of both feet Follow up with Cardiology tomorrow as previously scheduled Follow up with family doctor to adjust medications as needed to treat chronic illnesses Return if needed Discharge Counseling Counseled pt/family regarding diagnosis, medications/RX, home care, follow up needs at 1018
[2016-07-29 10:27] VITALS: BP 113/63
== END 2016-07-29 10:28 | disposition home or self-care (01) ==
LOC: ER 09:38 → UTC 09:45
DX: R21 Rash and other nonspecific skin eruption (principal); H61.22 Impacted cerumen, left ear; I10 Essential (primary) hypertension; Z72.0 Tobacco use

== ENCOUNTER → 2016-12-18 | Outpatient (CLI) | payer MEDICARE, MEDICAID ==
[~2016-12-18] MED LIST changes: +DIABETIC TUSSI118 M2 PO; +FLONASE 50 MCG16 GM
--- NOTE | 2016-12-18 21:38 | RADIOLOGY REPORT PS360 ---
PROCEDURE: 2-D M-mode and color Doppler study INDICATIONS FOR THE TEST: Chest pain + COPD+ Heart Murmur Tobacco Smoking+ Palpitations+ Fatigue Syncope Edema+ Hypertension+Diabetes Mellitus+ Rheumatic Fever SOB+RITCHIE Obesity+Hyperlipidemia+ Family History HD Additional History PT MOVED THRU OUT EXAM PATIENT INFORMATION HEIGHT: 68 WEIGHT:216 GENDER: Female B/P: 2-D/M-MODE INTERPRETATION: 2-D MEASUREMENTS OBSERVED VALUES IN CMS Right Ventricular Dimension (RVDd) 3.2 Interventricular Septum (Thickness)(IVsd) 1.6 Left Ventricular Internal Dimensions(LVIDd) 4.0 Left Ventricular Posterior Wall (Thickness)(LVPWd) 1.3 Aortic Root 3.3 Aortic Cusp Separation 2.1 Left Atrial Dimensions (LAD) 5.1 2D 1. This is technically difficult study because of the patient's factor and poor acoustic windows. 2. The left atrium is moderately enlarged, left ventricle is normal size, there is mild concentric left ventricular hypertrophy present, visually estimated ejection fraction of 50-55% with no obvious regional wall motion abnormality, endocardial surfaces are poorly visualized, there is abnormal septal motion. 3. The right atrium is moderately enlarged, the right ventricle is moderately dilated with normal right ventricular systolic function. 4. The aortic valve is minimally thickened and fibrosed. 5. The mitral and tricuspid valve leaflets are minimally thickened. 6. No significant pericardial effusion noted 7. The pulmonic valve is poorly visualized. DOPPLER INTERROGATION: Doppler interrogation of the aortic mitral and tricuspid valvular presence of mild mitral and tricuspid regurgitation, calculated right ventricular systolic pressure approximately 55 mmHg consistent with moderate pulmonary hypertension, diastolic parameters are inconclusive. CONCLUSION: 1. Moderate biatrial enlargement, normal left ventricular size, mild concentric left ventricular hypertrophy, visually estimated ejection fraction of 50-55% with no obvious regional wall motion abnormality, there is abnormal septal motion. 2. Moderately enlarged right ventricle with normal contractility. 3. Mild mitral and tricuspid regurgitation noted, calculated right ventricular systolic pressure 55 mmHg consistent with moderate pulmonary hypertension. 4. No significant pericardial effusion.
== END ==
LOC: RT 12:54
DX: R60.9 Edema, unspecified (principal); R42 Dizziness and giddiness; I48.91 Unspecified atrial fibrillation; I10 Essential (primary) hypertension; I27.9 Pulmonary heart disease, unspecified; J44.9 Chronic obstructive pulmonary disease, unspecified; Z72.0 Tobacco use; R06.02 Shortness of breath

== ENCOUNTER 2016-12-23 08:51 | Emergency (ER) | payer MEDICARE, MEDICAID ==
[~2016-12-23] VITALS: Ht 170.2 cm; Wt 118.0 kg
[~2016-12-23 08:51] MED LIST changes: -DIABETIC TUSSI118 M2 PO
--- NOTE | 2016-12-23 09:17 | Urgent Treatment Center Report ---
History of Present Issue Date/Time Seen by Provider 12/23/16912 Visit Reason Pt arrived:Walked Presenting Problem:PT C/O OF CHEST CONGESTION, COUGH, RUNNY NOSE Location if Accident: Onset of symptoms date/time:12/15/1606/01/1299 or onset unknown for: Have you (or family members/close friends) recently traveled outside the [place]? N If Yes, where/when: Have you had exposure to infectious disease within the past month? TB? Other? Specify: Patient state that she has been having cough and congestion along with sinus pain and pressure. State her sinuses are starting to hurt and her "snot" is dark yellow and thick. State that it has continued to get worse and draining down the back of her throat and has her throat sore. State that when she coughs she is coughing up the drainage and she is worried that it will get into her lungs ALLERGIES Coded Allergies: Sulfa (Sulfonamide Antibiotics) (Intermediate, I-HIVES 07/17/16) Home Medications Active Scripts DILTIAZEM HCL (Diltiazem Hcl) 90 MG PO TID #90 TAB Ref 1 Prov: 07/13/16 Apixaban (Eliquis) 2.5 MG PO BID #60 TAB Ref 1 Prov: 07/13/16 Spironolactone (Spironolactone) 50 MG PO BID #60 TAB Ref 1 Prov: 07/27/16 Amoxicillin/Potassium Clav (Augmentin 875-125 Tablet) 1 EACH PO BID #14 TAB Prov: 11/11/16 Fluticasone Propionate (Flonase 50 Mcg Nasal [place]) 2 SPRAY NA DAILY #1 BOT Prov: 11/11/16 TRIAMCINOLONE ACET 0.1% (Triamcinolone Acetonide) 1 SERGO TP BID 7 Days Prov: 07/28/16 Reported Medications Paroxetine (Paxil) 40 MG PO QHS Conjugated Estrogens (Premarin 0.3MG. Tablet) 0.3 MG PO DAILY LISINOPRIL (Lisinopril) 2.5 MG PO DAILY ROPINIROLE HCL (Ropinirole) 12 MG PO QHS Levothyroxine Sodium (Levothyroxine) 0.05 MG PO DAILY GABAPENTIN (Gabapentin) 400 MG PO BID HYDROCODONE/ACETAMINOPHEN (Lortab 10-325 (generic) Tablet) 1 TAB PO TID Metformin HCL (Metformin) 500 MG PO BID #60 TAB Albuterol Sulfate (Ventolin Hfa) 2 PUFF IH QIDP Albuterol-Ipratropium (Duoneb 0.5 MG-3 MG/3 Ml Soln) 3 ML IN TID Sucralfate (Carafate) 1 GM PO TID Lansoprazole (Lansoprazole) 30 MG PO DAILY Device (Oxygen (Concentrator)) 1 UNIT XX UD #2 Melatonin 10 MG PO QHS Quetiapine Fumarate (Seroquel Xr) 400 MG PO QHS Montelukast Sodium (Singulair) 10 MG PO QHS MAGNESIUM OXIDE (Magnesium Oxide) 400 MG PO QHS Atorvastatin Calcium (Atorvastatin) 80 MG PO QHS MOMETASONE/FORMOTEROL (Dulera 200 Mcg/5 Mcg Inhaler) 2 PUFFS IH BID #13 History Medical History General CAD? No Angina: No [place]: No Hypertension? Yes Hyperlipidemia? Yes CHF? Yes DVT? No PE? No COPD? Yes Asthma? Yes Anemia? No GERD? No Gastric ulcers? No GI Bleed? No Hernia? No Thyroid Problems? Yes Hypothyroidism? Yes CVA? No Seizures? Yes Diabetes? Yes Insulin Dependent: No Insulin Pump: No Home FSBS? No Renal Insuffiency? Yes UTI? Yes Stones? No BPH? No GB Disease: No Nephritic Syndrome? No Asplenia? No Hepatitis? No Sickle Cell Disease? No Arthritis? Yes Migraines? No Cataracts? Yes Glaucoma? No MRSA? No HIV? No TB? No Anxiety? Yes Depression? Yes Cancer? Yes Site: LUNG, SKIN CA More? Yes Additional hx: [place], AFIB Immunization HX DT/Tetanus 10/15/12 Flu 2015- Flu Season Pneumonia Received In Past Surgical Hx Previous Surgery?Y L-LUMPECTOMY X2 TEETH EXTRACTED, UPPER TUMOR FROM R WRIST Tubal Ligation R-UPPER AND LOWER LOBECTO HYSTERECTOMY SKIN CANCER OF NOSE BI-LAT CATARACTS RIGHT ANKLE Family History Family HX Diabetes Yes CAD Yes Hypertension Yes Hyperlipidemia Yes Cancer Yes TB No Social History Smoking Hx Smoker: Current Every Day Smoker Tobacco: Yes Type Cigarettes Packs/day < 1 Pack Alcohol Alcohol: No Review of Systems All Other Systems Reviewed and Negative ENT nose discharge, nose congestion, throat pain. Respiratory cough Physical Exam Vital Signs Vital Signs Date Time Temp Pulse Resp B/P Pulse O2 O2 Flow FiO2 Ox Delivery Rate 12/23 0908 98.1 98 20 132/78 100 General Appearance normal appearance, WD/WN, no apparent distress Ear, Nose, Throat sinus pain/drainage, nasal congestion, throat mildly red, drainage noted, reports greenish yellow thick mucous from her nose Respiratory Status Yes: trachea midline, chest symmetrical. No: respiratory distress. 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 No Departure Departure Time of Disposition 09 Disposition DC Home or Self Care(routine) Clinical Impression Primary Impression: Upper respiratory infection Qualifiers: URI type: unspecified URI Qualified Code: J06.9 - Acute upper respiratory infection, unspecified Condition STABLE Patient Instructions Cough, DI for Nasal Congestion, Guaifenesin Additional Instructions * Monitor Temp. Tylenol and/or Ibuprofen as needed. ER if fever is no less than 101 despite alternating Tylenol and Ibuprofen * Encourage fluids, water, Gatorade, powerade, pedialyte if /toddler/or child * Warm salt water gargles for throat irritation *Warm fluids *Sore throat lozenges *Sleep elevated *humidifier or vaporizer *Flonase 2 sprays each nostril daily but may take 2-3 days to notice improvement with it Follow up IMMEDIATELY for new or worsening of symptoms OR no noticeable improvement over the next 48-72 hours. 911 immediately for any life threatening symptoms such as chest pain or difficulty breathing Discharge Counseling Counseled pt/family regarding diagnosis, medications/RX, home care, follow up needs Prescriptions Current Visit Scripts Azithromycin (Zithromycin (Z-TOBIAS) 250MG Tab) 250 MG PO DAILY #6 TAB TAKE TWO (2) TABLETS ON DAY 1, THEN ONE (1) TABLET DAY #2 THRU #5 Fluticasone Propionate (Flonase 50 Mcg Nasal [place]) 2 SPRAY NA DAILY #1 BOT GUAIFENESIN/DEXTROMETHORPHAN (Diabetic Tussin Dm Liquid) 10 ML PO Q4 #120 ML at 0960
[2016-12-23] MEDS ORDERED: ZITHROMAX Z PA250 MG PO (09:25)
[2016-12-23] MEDS ORDERED: DIABETIC TUSSI118 M2 PO (09:25)
[2016-12-23] MEDS ORDERED: FLONASE 50 MCG16 GM (09:25)
[2016-12-23 09:43] VITALS: BP 132/78
== END 2016-12-23 09:43 | disposition home or self-care (01) ==
LOC: UTC 08:51
DX: J06.9 Acute upper respiratory infection, unspecified (principal); F17.210 Nicotine dependence, cigarettes, uncomplicated; Z79.84 Long term (current) use of oral hypoglycemic drugs; Z79.891 Long term (current) use of opiate analgesic; Z99.81 Dependence on supplemental oxygen; Z79.51 Long term (current) use of inhaled steroids; Z79.899 Other long term (current) drug therapy; E78.5 Hyperlipidemia, unspecified; I11.0 Hypertensive heart disease with heart failure; I50.9 Heart failure, unspecified; J44.9 Chronic obstructive pulmonary disease, unspecified; E03.9 Hypothyroidism, unspecified; E11.9 Type 2 diabetes mellitus without complications; R56.9 Unspecified convulsions; M19.90 Unspecified osteoarthritis, unspecified site; Z79.890 Hormone replacement therapy

== ENCOUNTER 2016-12-28 22:03 | Emergency (ER) | payer MEDICARE, MEDICAID ==
[~2016-12-28] VITALS: Ht 170.2 cm; Wt 98.0 kg
[~2016-12-28 22:03] MED LIST changes: +DIABETIC TUSSI118 M2 PO
--- NOTE | 2016-12-28 22:21 | Emergency Room Report ---
History of Present Illness Time Seen by [id number] Presenting Problem in Triage Pt arrived:Walked Presenting Problem:C/O PRODUCTIVE COUGH AND DRY HEAVES WITH NAUSEA. 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 N Clinical Suspician of Infection? Y Mental Status: 1 - Regular (Normal Baseline) Sepsis Risk:Severe Sepsis Risk Have you (or family members/close friends) recently traveled outside the [place]? N If Yes, where/when: Have you had exposure to infectious disease within the past month? N TB? Other? Specify: Comment The patient complains of a productive cough for over a week. She also has dry heaves today. She does not know whether she has had a fever, temperature not taken. She has runny nose, sore throat, and headache. She was seen at the urgent treatment center on 12/23/16 and started on Zithromax, completed this without improvement. She denies chest pain. She has chronic shortness of breath, chronic edema of the legs. ALLERGIES Coded Allergies: Sulfa (Sulfonamide Antibiotics) (Intermediate, I-HIVES 07/17/16) Home Medications Active Scripts DILTIAZEM HCL (Diltiazem Hcl) 90 MG PO TID #90 TAB Ref 1 Prov: 07/13/16 Apixaban (Eliquis) 2.5 MG PO BID #60 TAB Ref 1 Prov: 07/13/16 Spironolactone (Spironolactone) 50 MG PO BID #60 TAB Ref 1 Prov: 07/27/16 Fluticasone Propionate (Flonase 50 Mcg Nasal [place]) 2 SPRAY NA DAILY #1 BOT Prov: 11/11/16 Fluticasone Propionate (Flonase 50 Mcg Nasal [place]) 2 SPRAY NA DAILY #1 BOT Prov: 12/23/16 GUAIFENESIN/DEXTROMETHORPHAN (Diabetic Tussin Dm Liquid) 10 ML PO Q4 #120 ML Prov: 12/23/16 TRIAMCINOLONE ACET 0.1% (Triamcinolone Acetonide) 1 SERGO TP BID 7 Days Prov: 07/28/16 Reported Medications Paroxetine (Paxil) 40 MG PO QHS Conjugated Estrogens (Premarin 0.3MG. Tablet) 0.3 MG PO DAILY LISINOPRIL (Lisinopril) 2.5 MG PO DAILY ROPINIROLE HCL (Ropinirole) 12 MG PO QHS Levothyroxine Sodium (Levothyroxine) 0.05 MG PO DAILY GABAPENTIN (Gabapentin) 400 MG PO BID HYDROCODONE/ACETAMINOPHEN (Lortab 10-325 (generic) Tablet) 1 TAB PO TID Metformin HCL (Metformin) 500 MG PO BID #60 TAB Albuterol Sulfate (Ventolin Hfa) 2 PUFF IH QIDP Albuterol-Ipratropium (Duoneb 0.5 MG-3 MG/3 Ml Soln) 3 ML IN TID Sucralfate (Carafate) 1 GM PO TID Lansoprazole (Lansoprazole) 30 MG PO DAILY Device (Oxygen (Concentrator)) 1 UNIT XX UD #2 Melatonin 10 MG PO QHS Quetiapine Fumarate (Seroquel Xr) 400 MG PO QHS Montelukast Sodium (Singulair) 10 MG PO QHS MAGNESIUM OXIDE (Magnesium Oxide) 400 MG PO QHS Atorvastatin Calcium (Atorvastatin) 80 MG PO QHS MOMETASONE/FORMOTEROL (Dulera 200 Mcg/5 Mcg Inhaler) 2 PUFFS IH BID #13 History Medical History General CAD? No Angina: No [place]: No Hypertension? Yes Hyperlipidemia? Yes CHF? Yes DVT? No PE? No COPD? Yes Asthma? Yes Anemia? No GERD? No Gastric ulcers? No GI Bleed? No Hernia? No Thyroid Problems? Yes Hypothyroidism? Yes CVA? No Seizures? Yes Diabetes? Yes Insulin Dependent: No Insulin Pump: No Home FSBS? No Renal Insuffiency? Yes End Stage Renal Disease? No UTI? Yes Stones? No BPH? No GB Disease: No Nephritic Syndrome? No Asplenia? No Hepatitis? No Sickle Cell Disease? No Arthritis? Yes Migraines? No Cataracts? Yes Glaucoma? No MRSA? No HIV? No TB? No Anxiety? Yes Depression? Yes Cancer? Yes Site: LUNG, SKIN CA More? Yes Additional hx: [place], AFIB Immunization Hx DT/Tetanus 10/15/12 Flu 2015-FSN Pneumonia Received In Past Surgical Hx Previous Surgery?Y L-LUMPECTOMY X2 TEETH EXTRACTED, UPPER TUMOR FROM R WRIST Tubal Ligation R-UPPER AND LOWER LOBECTO HYSTERECTOMY SKIN CANCER OF NOSE BI-LAT CATARACTS RIGHT ANKLE Family History Family Hx Diabetes Yes CAD Yes Hypertension Yes Hyperlipidemia Yes Cancer Yes TB No Social History Smoking Hx Smoker: Current Every Day Smoker Tobacco: Yes Type Cigarettes Packs/day < 1 Pack Alcohol Alcohol: No Additionial History Additional History 12 ED/UTC visits this year. Last visit 12/23 for URI: srikanthk, aroldo, janenein dm. Review of Systems All Other Systems Reviewed and Negative Constitutional see HPI, denies fever Respiratory cough, shortness of breath Cardiovascular denies chest pain, edema Gastrointestinal nausea, denies vomiting Psychiatric/Neurological headache Physical Exam Vital Signs Vital Signs Date Time Temp Pulse Resp B/P Pulse O2 O2 Flow FiO2 Ox Delivery Rate 12/28 2324 97.9 105 22 130/69 93 12/28 2307 97.9 105 22 130/69 93 12/28 2206 97.6 109 24 112/73 94 General Appearance no apparent distress Eye Exam - bilateral eye normal exam, bilateral eye PERRL, bilateral eye EOMI Ear, Nose, Throat hearing grossly normal, normal ENT inspection Neck normal inspection, non-tender, supple, full range of motion Respiratory Status Yes: trachea midline, chest symmetrical, non productive cough. No: respiratory distress. Lung Sounds bilateral: normal breath sounds, lungs clear. Cardiovascular no gallop, no JVD, no murmur, no rub Gastrointestinal normal bowel sounds, normal exam, non tender, soft, no organomegaly Extremities 2+ pitting edema of legs Neurologic alert, oriented x 3 Mental status normal mood/affect Skin intact, normal color, warm/dry Medical Decision Making LABS/Meds/Orders Pt receiving controlled substance in ED? No Results/Orders Laboratory Tests 12/28/16 2220: Sodium 134 L, Potassium 3.6, Chloride 97 L, Carbon Dioxide 31, BUN 44 H, Creatinine 1.2 H, Estimated Creat Clear 73, Estimated GFR (MDRD) 45 L, Glucose 146 H, Calcium 8.8, Total Bilirubin 0.3, AST 12 L, ALT 20, Alkaline Phosphatase 151 H, Total Protein 7.2, Albumin 3.2 L, Globulin 4.0 H, Albumin/ Globulin Ratio 0.8 L, WBC 10.7, RBC 4.76, Hgb 10.8 L, Hct 34.3 L, MCV 72.1 L , RDW 17.2, Plt Count 314, MPV 7.1 L, Gran % 69.5, Gran # 7.4, Lymphocytes % 23.0, Monocytes % 5.4, Eosinophils % 2.0, Basophils % 0.2, Lymphocytes # 2.5, Monocytes # 0.6, Eosinophils # 0.2, Basophils # 0.0, PUBS MCHC 31.5 L, MCH 22.7 L Current Medication Orders Sig/Curry Start time Last Medication Dose Route Stop Time Status Admin Benzonatate 200 MG ONCE ONE 12/28 2314 DC 12/28 PO 12/28 Levofloxacin 500 MG ONCE ONE 12/28 2314 DC 12/28 PO 12/28 Levofloxacin 0 .STK-MED ONE 12/28 2313 DC .ROUTE Benzonatate 0 .STK-MED ONE 12/28 2312 DC PO Ondansetron HCl 0 .STK-MED ONE 12/28 2237 DC .ROUTE Ondansetron HCl 4 MG ONCE ONE 12/28 2229 DC 12/28 IV 12/28 2230 2240 Sodium Chloride 10 ML PRN PRN 12/28 2229 DCD IV 12/29 221 Orders Procedure Date/time Status CHEST(2 VIEWS-NOT PORTABLE) 12/29 2215 Active IV SALINE LOCK 12/29 2215 Active CBC WITH AUTO DIFF 12/29 2215 Complete CHEM 12 PROFILE 12/29 2215 Complete XRAY/CT/US XRAY/CT/US XRAY chest Comment X-ray interpreted by Pancho Perez M.D.: Postsurgical changes RIGHT hemithorax. No acute process. Departure Departure Disposition DC Home or Self Care(routine) Clinical Impression Primary Impression: Acute bronchitis Qualifiers: Bronchitis organism: unspecified organism Qualified Code: J20.9 - Acute bronchitis, unspecified Secondary Impressions: Nausea Condition STABLE Referrals Namita COPELAND,Abhishek (Family) Patient Instructions DI for Acute Bronchitis, DI for Nausea -- Adult Additional Instructions Additional instructions for ACUTE BRONCHITIS: Use Tylenol or Ibuprofen for pain or fever. Rest and plenty of fluids. Return immediately if you have an uncontrollable fever greater than 102 degrees, severe headache or neck stiffness, difficulty breathing or shortness of breath, persistent vomiting, severe sore throat or inability to swallow. See your physician if not improving in 4-5 days. Prescriptions Current Visit Scripts Ondansetron (Zofran 4MG Odt) 4 MG PO Q8HP PRN NAUSEA AND VOMITING #10 ODT Levofloxacin (Levaquin 500MG) 500 MG PO DAILY #9 TAB Benzonatate (Tessalon Perle) 100 MG PO TID #15 SGL ED Critical Care Critical Care No If Critical Care minutes are documented, the time involved in the performance of seperately reportable procedures was not counted toward critical care time documented. I directly delivered medical care to this critically ill and/or injured patient. Timely evaluation and treatment was necessary to address the significant organ system(s) dysfunction present in this patient. at 0053
[2016-12-28 22:43] LABS: HEMOGLOBIN 10.8 g/dL (12.2-16.2); LYMPH # 2.5 K/mm3 (0.7-4.5)
[2016-12-28] MEDS ORDERED: LEVAQUIN500 MG PO (23:11)
[2016-12-28] MEDS ORDERED: TESSALON PERLE100 M1 PO (23:11)
[2016-12-28] MEDS ORDERED: ZOFRAN ODT4 MG PO (23:11)
[2016-12-28 23:24] VITALS: BP 130/69
--- NOTE | 2016-12-29 08:00 | RADIOLOGY REPORT PS360 ---
CHEST(2 VIEWS-NOT PORTABLE) COMPARISON: PA and lateral chest 11/11/2016 HISTORY: Productive cough TECHNIQUE: PA and lateral chest FINDINGS: This is a somewhat poor inspiration. Again noted are postsurgical changes right hemithorax with surgical clips in the right suprahilar region and post thoracotomy change of the right fifth rib. The lung hunt are clear of active infiltrate. There is borderline cardio megaly without failure. There is no pleural fluid. IMPRESSION: Nonacute chest findings
== END 2016-12-28 23:25 | disposition home or self-care (01) ==
LOC: ER 22:03
PROVIDERS: Emergency Medicine
DX: J44.0 Chronic obstructive pulmonary disease with (acute) lower respiratory infection (principal); J20.9 Acute bronchitis, unspecified; F17.210 Nicotine dependence, cigarettes, uncomplicated; E78.5 Hyperlipidemia, unspecified; I11.0 Hypertensive heart disease with heart failure; I50.9 Heart failure, unspecified; E03.9 Hypothyroidism, unspecified; E11.8 Type 2 diabetes mellitus with unspecified complications; H91.90 Unspecified hearing loss, unspecified ear; Z79.84 Long term (current) use of oral hypoglycemic drugs; Z79.890 Hormone replacement therapy; Z79.891 Long term (current) use of opiate analgesic; Z99.81 Dependence on supplemental oxygen; Z79.899 Other long term (current) drug therapy
CPT/HCPCS: J2405

== ENCOUNTER 2016-12-30 21:11 | Emergency (ER) | payer MEDICARE, MEDICAID ==
[~2016-12-30] VITALS: Ht 170.2 cm; Wt 98.0 kg
--- NOTE | 2016-12-30 21:31 | Emergency Room Report ---
History of Present Illness Time Seen by [id number] Presenting Problem in Triage Pt arrived:Wheelchair Presenting Problem:C/O LACERATION TO LEFT LOWER LEG. 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 N Clinical Suspician of Infection? N Mental Status: 1 - Regular (Normal Baseline) Sepsis Risk:Possible Sepsis Risk Have you (or family members/close friends) recently traveled outside the [place]? N If Yes, where/when: Have you had exposure to infectious disease within the past month? N TB? Other? Specify: Source patient, RN notes reviewed, family, old records Exam Limitations no limitations Comment her dog scratched lt lower leg tonight with 4 cm lac Cardiac Chest Pain Chest pain indicative of cardiac No Timing/Duration this evening Severity moderate ALLERGIES Coded Allergies: Sulfa (Sulfonamide Antibiotics) (Intermediate, I-HIVES 07/17/16) Home Medications Active Scripts DILTIAZEM HCL (Diltiazem Hcl) 90 MG PO TID #90 TAB Ref 1 Prov: 07/13/16 Apixaban (Eliquis) 2.5 MG PO BID #60 TAB Ref 1 Prov: 07/13/16 Spironolactone (Spironolactone) 50 MG PO BID #60 TAB Ref 1 Prov: 07/27/16 Fluticasone Propionate (Flonase 50 Mcg Nasal [place]) 2 SPRAY NA DAILY #1 BOT Prov: 11/11/16 Fluticasone Propionate (Flonase 50 Mcg Nasal [place]) 2 SPRAY NA DAILY #1 BOT Prov: 12/23/16 GUAIFENESIN/DEXTROMETHORPHAN (Diabetic Tussin Dm Liquid) 10 ML PO Q4 #120 ML Prov: 12/23/16 TRIAMCINOLONE ACET 0.1% (Triamcinolone Acetonide) 1 SERGO TP BID 7 Days Prov: 07/28/16 Ondansetron (Zofran 4MG Odt) 4 MG PO Q8HP PRN NAUSEA AND VOMITING #10 ODT Prov: 12/28/16 Levofloxacin (Levaquin 500MG) 500 MG PO DAILY #9 TAB Prov: 12/28/16 Benzonatate (Tessalon Perle) 100 MG PO TID #15 SGL Prov: 12/28/16 Reported Medications Paroxetine (Paxil) 40 MG PO QHS Conjugated Estrogens (Premarin 0.3MG. Tablet) 0.3 MG PO DAILY LISINOPRIL (Lisinopril) 2.5 MG PO DAILY ROPINIROLE HCL (Ropinirole) 12 MG PO QHS Levothyroxine Sodium (Levothyroxine) 0.05 MG PO DAILY GABAPENTIN (Gabapentin) 400 MG PO BID HYDROCODONE/ACETAMINOPHEN (Lortab 10-325 (generic) Tablet) 1 TAB PO TID Metformin HCL (Metformin) 500 MG PO BID #60 TAB Albuterol Sulfate (Ventolin Hfa) 2 PUFF IH QIDP Albuterol-Ipratropium (Duoneb 0.5 MG-3 MG/3 Ml Soln) 3 ML IN TID Sucralfate (Carafate) 1 GM PO TID Lansoprazole (Lansoprazole) 30 MG PO DAILY Device (Oxygen (Concentrator)) 1 UNIT XX UD #2 Melatonin 10 MG PO QHS Quetiapine Fumarate (Seroquel Xr) 400 MG PO QHS Montelukast Sodium (Singulair) 10 MG PO QHS MAGNESIUM OXIDE (Magnesium Oxide) 400 MG PO QHS Atorvastatin Calcium (Atorvastatin) 80 MG PO QHS MOMETASONE/FORMOTEROL (Dulera 200 Mcg/5 Mcg Inhaler) 2 PUFFS IH BID #13 History Medical History General CAD? No Angina: No [place]: No Hypertension? Yes Hyperlipidemia? Yes CHF? Yes DVT? No PE? No COPD? Yes Asthma? Yes Anemia? No GERD? No Gastric ulcers? No GI Bleed? No Hernia? No Thyroid Problems? Yes Hypothyroidism? Yes CVA? No Seizures? Yes Diabetes? Yes Insulin Dependent: No Insulin Pump: No Home FSBS? No Renal Insuffiency? Yes End Stage Renal Disease? No UTI? Yes Stones? No BPH? No GB Disease: No Nephritic Syndrome? No Asplenia? No Hepatitis? No Sickle Cell Disease? No Arthritis? Yes Migraines? No Cataracts? Yes Glaucoma? No MRSA? No HIV? No TB? No Anxiety? Yes Depression? Yes Cancer? Yes Site: LUNG, SKIN CA More? Yes Additional hx: [place], AFIB Immunization Hx DT/Tetanus 10/15/12 Flu 2015-17FSN Pneumonia Received In Past Surgical Hx Previous Surgery?Y L-LUMPECTOMY X2 TEETH EXTRACTED, UPPER TUMOR FROM R WRIST Tubal Ligation R-UPPER AND LOWER LOBECTO HYSTERECTOMY SKIN CANCER OF NOSE BI-LAT CATARACTS RIGHT ANKLE Family History Family Hx Diabetes Yes CAD Yes Hypertension Yes Hyperlipidemia Yes Cancer Yes TB No Social History Smoking Hx Smoker: Current Every Day Smoker Tobacco: Yes Type Cigarettes Packs/day < 1 Pack Alcohol Alcohol: No Drugs none Review of Systems All Other Systems Reviewed and Negative Constitutional denies fever Eyes denies drainage ENT denies: ear pain, epistaxis, throat pain. Respiratory denies cough, denies shortness of breath, denies wheezing Cardiovascular denies chest pain, denies palpitations, denies syncope Gastrointestinal denies abdominal pain, denies diarrhea, denies vomiting Genitourinary denies: dysuria, frequency, hesitancy, hematuria. Musculoskeletal denies back pain, denies joint pain, denies joint swelling, denies neck pain Skin see HPI, denies rash, other Psychiatric/Neurological denies headache, denies seizure Physical Exam Vital Signs Vital Signs Date Time Temp Pulse Resp B/P Pulse O2 O2 Flow FiO2 Ox Delivery Rate 12/30 2205 115 18 120/70 93 12/30 2113 99.6 112 20 135/75 96 - WBC >12,000 or <4,000 or 10% bands? 2 or more SIRS Criteria Met? B/P:120/70 MAP:95 Creatinine >2.0? UA output<0.5ml/kg/hr for 2 hrs? Platelet count >100,000? Lactate >2.0mmol/1? INR >1.2 or PTT > than 60 sec? Evidence of Organ Dysfunction? Provider documented clinical suspician of infection? N Sepsis Criteria Count: 2 Sepsis Risk: Possible Sepsis Risk General Appearance no apparent distress Eye Exam - bilateral eye PERRL, bilateral eye EOMI Ear, Nose, Throat normal ENT inspection Neck supple Respiratory Status No: respiratory distress. Cardiovascular regular rate/rhythm Peripheral Pulses Pulses normal Yes Extremities no calf tenderness, swelling, 4 cm lt lower leg lac - no fb and neurovascular ok Strength 4 Upper Ext (L), 4 Upper Ext (R), 4 Lower Ext (L), 4 Lower Ext (R) Neurologic alert, sand buffer II-XII nml as tested, no motor/sensory deficits Reflexes Reflexes normal No Mental status normal mood/affect Skin laceration(s), 4 cm lt lower leg lac Medical Decision Making LABS/Meds/Orders Pt receiving controlled substance in ED? No Results/Orders Current Medication Orders Sig/Curry Start time Last Medication Dose Route Stop Time Status Admin Lidocaine HCl 0 .STK-MED ONE 12/30 2134 DC .ROUTE Procedures Laceration/Wound Repair Laceration/Wound Repair Risks/benefits discussed with pt/guardian? Yes Tetanus status up to date Wound Location lower leg Wound Length (cm) 4 Wound's Depth, Shape sucutaneous tissue Wound Explored no FB identified Risk of retained FB explained to pt/guardian? Yes Irrigated w/ Saline (ccs) 0 Wound Prep Hibiclens, Saline Anesthesia 1% Lidocaine, Local Volume Anesthetic (ccs) 6 Wound Debrided none Wound Repaired With sutures Suture Size/Type 4:0, 3:0, Ethilon Layer Closure No Total Number Sutures 17 Sterile Dressing Applied Yes Splint Applied No Sling Applied No Departure Departure Time of Disposition 2224 Disposition DC Home or Self Care(routine) Clinical Impression Primary Impression: Leg laceration Qualifiers: Encounter type: initial encounter Laterality: left Qualified Code: S81.812A - Laceration without foreign body, left lower leg, initial encounter Condition STABLE Referrals Abhishek Breaux MD Patient Instructions DI for Laceration Repair Additional Instructions suture out 10 days and recheck if any problems Discharge Counseling Counseled pt/family regarding diagnosis, medications/RX, follow up needs Prescriptions Current Visit Scripts Amoxicillin/Potassium Clav (Augmentin 875-125 Tablet) 1 EACH PO BID #20 TAB ED Critical Care Critical Care No at 2233
[2016-12-30] MEDS ORDERED: AUGMENTIN 875-1 EACH PO (22:33)
[2016-12-30 22:41] VITALS: BP 123/75
== END 2016-12-30 22:42 | disposition home or self-care (01) ==
LOC: ER 21:11
PROC: 0HQLXZZ Repair Left Lower Leg Skin, External Approach (ICD-10-PCS; principal; 2016-12-30)
DX: S81.812A Laceration without foreign body, left lower leg, initial encounter (principal); Y92.9 Unspecified place or not applicable; W54.1XXA Struck by dog, initial encounter; F17.210 Nicotine dependence, cigarettes, uncomplicated; E78.5 Hyperlipidemia, unspecified; I11.0 Hypertensive heart disease with heart failure; E11.9 Type 2 diabetes mellitus without complications; H91.90 Unspecified hearing loss, unspecified ear; F41.9 Anxiety disorder, unspecified; F32.9 Major depressive disorder, single episode, unspecified; I50.9 Heart failure, unspecified; J44.9 Chronic obstructive pulmonary disease, unspecified; E03.9 Hypothyroidism, unspecified; Z79.84 Long term (current) use of oral hypoglycemic drugs; Z79.890 Hormone replacement therapy; Z79.891 Long term (current) use of opiate analgesic; Z99.81 Dependence on supplemental oxygen; Z79.899 Other long term (current) drug therapy

== ENCOUNTER 2017-01-19 13:47 | Emergency (ER) | payer MEDICARE, MEDICAID ==
[~2017-01-19] VITALS: Ht 170.2 cm; Wt 97.1 kg
--- NOTE | 2017-01-19 14:04 | Urgent Treatment Center Report ---
History of Present Issue Date/Time Seen by Provider 01/19/17 1403 Visit Reason Pt arrived:Walked Presenting Problem:PT C/O LIGHT HEADED AND NAUSEA X2 DAYS Location if Accident: Onset of symptoms date/time:/ or onset unknown for:MEDICAL HX UNKNOWN Have you (or family members/close friends) recently traveled outside the [place]? N If Yes, where/when: Have you had exposure to infectious disease within the past month? TB? Other? Specify: Patient comlaining of feeling a little light headed when she moves quickly State that if she stands up fast she gets a little "swimmy headed" States that she has also had nasuea for several days but denies vomiting. State that nause is worsened when she stands and the swimmy headedness happens ALLERGIES Coded Allergies: Sulfa (Sulfonamide Antibiotics) (Intermediate, I-HIVES 07/17/16) Home Medications Active Scripts DILTIAZEM HCL (Diltiazem Hcl) 90 MG PO TID #90 TAB Ref 1 Prov: 07/13/16 Apixaban (Eliquis) 2.5 MG PO BID #60 TAB Ref 1 Prov: 07/13/16 Spironolactone (Spironolactone) 50 MG PO BID #60 TAB Ref 1 Prov: 07/27/16 Fluticasone Propionate (Flonase 50 Mcg Nasal [place]) 2 SPRAY NA DAILY #1 BOT Prov: 11/11/16 Fluticasone Propionate (Flonase 50 Mcg Nasal [place]) 2 SPRAY NA DAILY #1 BOT Prov: 12/23/16 GUAIFENESIN/DEXTROMETHORPHAN (Diabetic Tussin Dm Liquid) 10 ML PO Q4 #120 ML Prov: 12/23/16 TRIAMCINOLONE ACET 0.1% (Triamcinolone Acetonide) 1 SERGO TP BID 7 Days Prov: 07/28/16 Amoxicillin/Potassium Clav (Augmentin 875-125 Tablet) 1 EACH PO BID #20 TAB Prov: 12/30/16 Ondansetron (Zofran 4MG Odt) 4 MG PO Q8HP PRN NAUSEA AND VOMITING #10 ODT Prov: 12/28/16 Levofloxacin (Levaquin 500MG) 500 MG PO DAILY #9 TAB Prov: 12/28/16 Benzonatate (Tessalon Perle) 100 MG PO TID #15 SGL Prov: 12/28/16 Reported Medications Paroxetine (Paxil) 40 MG PO QHS Conjugated Estrogens (Premarin 0.3MG. Tablet) 0.3 MG PO DAILY LISINOPRIL (Lisinopril) 2.5 MG PO DAILY ROPINIROLE HCL (Ropinirole) 12 MG PO QHS Levothyroxine Sodium (Levothyroxine) 0.05 MG PO DAILY GABAPENTIN (Gabapentin) 400 MG PO BID HYDROCODONE/ACETAMINOPHEN (Lortab 10-325 (generic) Tablet) 1 TAB PO TID Metformin HCL (Metformin) 500 MG PO BID #60 TAB Albuterol Sulfate (Ventolin Hfa) 2 PUFF IH QIDP Albuterol-Ipratropium (Duoneb 0.5 MG-3 MG/3 Ml Soln) 3 ML IN TID Sucralfate (Carafate) 1 GM PO TID Lansoprazole (Lansoprazole) 30 MG PO DAILY Device (Oxygen (Concentrator)) 1 UNIT XX UD #2 Melatonin 10 MG PO QHS Quetiapine Fumarate (Seroquel Xr) 400 MG PO QHS Montelukast Sodium (Singulair) 10 MG PO QHS MAGNESIUM OXIDE (Magnesium Oxide) 400 MG PO QHS Atorvastatin Calcium (Atorvastatin) 80 MG PO QHS MOMETASONE/FORMOTEROL (Dulera 200 Mcg/5 Mcg Inhaler) 2 PUFFS IH BID #13 History Medical History General CAD? No Angina: No [place]: No Hypertension? Yes Hyperlipidemia? Yes CHF? Yes DVT? No PE? No COPD? Yes Asthma? Yes Anemia? No GERD? No Gastric ulcers? No GI Bleed? No Hernia? No Thyroid Problems? Yes Hypothyroidism? Yes CVA? No Seizures? Yes Diabetes? Yes Insulin Dependent: No Insulin Pump: No Home FSBS? No Renal Insuffiency? Yes UTI? Yes Stones? No BPH? No GB Disease: No Nephritic Syndrome? No Asplenia? No Hepatitis? No Sickle Cell Disease? No Arthritis? Yes Migraines? No Cataracts? Yes Glaucoma? No MRSA? No HIV? No TB? No Anxiety? Yes Depression? Yes Cancer? Yes Site: LUNG, SKIN CA More? Yes Additional hx: [place], AFIB Immunization HX DT/Tetanus 10/15/12 Flu Flu Season Pneumonia Received In Past Surgical Hx Previous Surgery?Y L-LUMPECTOMY X2 TEETH EXTRACTED, UPPER TUMOR FROM R WRIST Tubal Ligation R-UPPER AND LOWER LOBECTO HYSTERECTOMY SKIN CANCER OF NOSE BI-LAT CATARACTS RIGHT ANKLE Family History Family HX Diabetes Yes CAD Yes Hypertension Yes Hyperlipidemia Yes Cancer Yes TB No Social History Smoking Hx Smoker: Current Every Day Smoker Tobacco: Yes Type Cigarettes Packs/day < 1 Pack Alcohol Alcohol: No Review of Systems All Other Systems Reviewed and Negative Constitutional denies chills, denies fever ENT denies: ear pain, nose congestion, throat pain. Respiratory denies cough, denies shortness of breath Cardiovascular denies chest pain, denies syncope Psychiatric/Neurological other (dizziness) Physical Exam Vital Signs Vital Signs Date Time Temp Pulse Resp B/P Pulse O2 O2 Flow FiO2 Ox Delivery Rate 01/19 1356 97.9 118 18 146/76 96 General Appearance normal appearance, WD/WN, no apparent distress Respiratory Status Yes: trachea midline, chest symmetrical, non tender chest. No: respiratory distress. Cardiovascular normal exam Neurologic alert, normal exam, oriented x 3 Medical Decision Making LABS/Meds/Orders Pt receiving controlled substance in ED? No Results/Orders Current Medication Orders Sig/Curry Start time Last Medication Dose Route Stop Time Status Admin Meclizine HCl 0 .STK-MED ONE 01/19 1428 DC .ROUTE Meclizine HCl 12.5 MG ONCE ONE 01/19 1415 DC 01/19 PO 01/19 1416 1424 Progress [facility] Progress Notes Comment After taking meclizine rechecked patient and patient state that she feels much better Dizzines improved and now able to stand and not get dizzy Departure Departure Time of Disposition 1443 Disposition DC Home or Self Care(routine) Clinical Impression Primary Impression: Vertigo Condition STABLE Referrals Abhishek Breaux MD (Family): 2 Days-Call Office Follow up with Namita on Saturday if symtom Patient Instructions Vertigo Additional Instructions Follow up with family doctor if symptoms persist for further treatment and medication if needed Return to the [facility] if needed Stand slowly and when you stand up wait just a moment prior to walking to allow yourself to get steady and not fall If symptoms worsen or you "pass out" go straight to the ER You was only given a small amount of mediction, you will need to follow up with family doctor for further prescriptions if he would like you to continue taking this medication Discharge Counseling Counseled pt/family regarding diagnosis, home care, follow up needs Prescriptions Current Visit Scripts MECLIZINE HCL (Meclizine Hydrochloride) 12.5 MG PO BID #14 TAB at 8723
[2017-01-19] MEDS ORDERED: MECLIZINE HYD12.5 MG PO (14:45)
[2017-01-19 14:49] VITALS: BP 146/76
--- OUTSIDE RECORDS SUMMARY | 2017-01-25 14:25 | External Medical Summary Rpt | CCD ---
Author Author , DWIGHT Organization DWIGHT Address Unknown Phone [email or web address] Care Team Providers Care Engineer [employer] Name Role Phone BEINEKE HANNY, BEINEKE Unavailable Unavailable HANNY BESSON JYOTI, BESSON Unavailable Unavailable JYOTI SUSANNAH VAMSI, Unavailable Unavailable SUSANNAH VAMSI [facility] Un[facility], [facility] Unavailable Unavailable [facility], [facility] ELIUD DOMENIC, Unavailable Unavailable ELIUD DOMENIC [facility] Unavailable Unavailable [place] [place] [facility] Unavailable Unavailable [place] [place] FRYMAN EUG, FRYMAN Unavailable Unavailable EUG [facility] Unavailable Unavailable INC, [facility] Unavailable Unavailable HOSPITAL P, [facility], Unavailable Unavailable [facility] Unavailable Unavailable IMAGING [facility], [facility] SMITH RAMONE, SMITH Unavailable Unavailable RAMONE RUFINO JR DWI, RUFINO Unavailable Unavailable JR DWI [facility] Unavailable Unavailable INTERNAL MED, [facility], Unavailable Unavailable [facility], Unavailable Unavailable [facility] Leanne Shaikh MD, Unavailable Unavailable Leanne Shaikh MD [facility] Unavailable Unavailable MEDICAL, [facility] PETTEY JAM, PETTEY Unavailable Unavailable JAM [facility] Unavailable Unavailable SERVICES, [facility], Unavailable Unavailable [facility] Eduin Blanca MD, Unavailable Unavailable Eduin Blanca MD Purpose Continuity of Care Document - 05-28-2012 through 2016 Problems Code Diagnosis DOS Provider Status J449 CHRONIC 02-24-2015 [facility], OBSTRUCTIVE INC PULMONARY DISEASE UNS E119 TYPE 2 02-15-2015 DIABETIC DIABETES EXPERTS OF MELLITUS [place] WITHOUT COMPLICATIO NS [id number] DERMATOCHAL 01-31-2015 [facility] UNS INSTITUTE EYELID Z961 PRESENCE OF 01-31-2015 [facility] LENS J0100 ACUTE 01-28-2015 [facility] SINUSITIS INTERNAL UNSPECIFIED MED M722 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 [facility] F[facility] FIBROMATOSI INTERNAL S MED I10 ESSENTIAL 01-20-2015 [facility] ARE[facility] HYPERTENSIO AGENCY ON N 4280 CONGESTIVE 12-29-2014 [facility] FAILURE AGENCY ON UNSPECIFIED 428 HEART 12-28-2014 [facility] FAILURE TRACE AREA AGENCY ON 496 CHRONIC 12-25-2014 [facility], AIRWAY INC [place] 32682 ACUTE 12-16-2014 [facility] LARYNGITIS, PHYSICIANS WITHOUT GROUP MENTION OF OBSTRUCTIO 60568 UNSPEC 11-30-2014 [facility] BURSAE&TEND INC ONS SHOULDER REGION 7262 OTHER 11-30-2014 [facility] OF SHOULDER INC REGION NEC V571 OTHER 11-30-2014 [facility] THERAPY [facility] 7273 OTHER 11-26-2014 [facility] BURSITIS PHYSICIANS DISORDERS GROUP 20615 PAIN IN 11-18-2014 [facility] MED[facility] SHOULDER IMAGING ASS REGION 27026 DIAB W/O 11-17-2014 DIABETIC COMP TYPE EXPERTS OF II/UNS NOT [place] STATED UNCNTRL 24530 HYPERTENSIV 11-14-2014 [facility] DISEASE [facility] P UNSPEC W/HEART FAIL 78213 OBST 11-14-2014 [facility] BRONCHITIS [facility] P W/ACUTE BRONCHITIS 5939 UNSPECIFIED 11-14-2014 [facility] P AND URETER 56407 CHEST PAIN 11-14-2014 [facility]PEC[facility]IED [facility] 250 DIABETES 11-04-2014 [facility] MELLITUS [facility]ACE AREA AGENCY ON 4760 CHRONIC 10-30-2014 [facility] LARYNGITIS PHYSICIANS GROUP 3238 POLYP OF 10-30-2014 [facility] VOCAL CORD PHYSICIANS OR LARYNX GROUP 9313 UNSPECIFIED 10-30-2014 [facility] DISORDER PHYSICIANS OF GROUP SKIN&SUBCUT ANEOUS TISSUE 3572 POLYNEUROPA 09-28-2014 [facility] IN [facility] DIABETES INTERNAL MED 34207 ASTHMA, 09-28-2014 [facility] UNSPECIFIED VALLEY , INTERNAL UNSPECIFIED MED STATUS V7612 OTHER 07-20-2014 [facility] MAMMOGRAM MEDICAL 7862 COUGH 07-09-2014 [facility] 3384 CHRONIC 07-07-2014 [facility] PAIN [facility] SYNDROME INTERNAL MED 77227 DYSPHONIA 07-07-2014 [facility] INTERNAL MED 7906 OTHER 07-07-2014 [facility]AL [facility] BLOOD INC CHEMISTRY 74449 GOUTY 06-03-2014 [facility]ROP[facility]Y [facility] INC UNSPECIFIED 4019 UNSPECIFIED 06-03-2014 [facility] ESSENTIAL [facility] HYPERTENSIO INC N 24603 PAIN IN 06-03-2014 [facility] FOREARM IMAGING ASS V1582 PERS HX 06-03-2014 [facility]BACCO USE [facility] PRESENTING INC [facility] 06113 SOLITARY 05-05-2014 [facility]ULMONARY [facility] NODULE INC V5878 AFTERCARE 04-01-2014 [facility]LLOW [facility] SURGERY INC MUSCULOSKEL SYSTEM NEC V5416 AFTERCARE 03-10-2014 [facility] TRAUMATIC INC FRACTURE LOWER LEG 2724 OTHER AND 03-02-2014 [facility] HYPERLIPIDE POLLY 3569 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 [facility] 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 23244 ESOPHAGEAL 03-02-2014 [facility] 15597 DEHYDRATION 02-19-2014 [facility] 4589 UNSPECIFIED 02-19-2014 [facility] HYPOTENSION INC 7802 SYNCOPE AND 02-19-2014 [facility]APSE [facility] 65297 SHORTNESS 02-19-2014 [facility]ATH [facility] INC V1090 PERSONAL 02-19-2014 [facility]ISTORY [facility] UNSPECIFIED INC MALIGNANT NEOPLASM V1254 PERSONAL HX 02-19-2014 [facility] TIA [facility] CI [facility] W/O INC RESIDUAL DEFICITS 32698 MORBID 02-16-2014 [facility]ITY [facility] INC 5990 URINARY 02-16-2014 [facility] TRACT [facility] INFECTION INC SITE NOT SPECIFIED 34254 MALUNION OF 02-16-2014 [facility]RA[facility]URE [facility] INC 8248 UNSPECIFIED 02-16-2014 [facility] CLOSED [facility] FRACTURE OF INC ANKLE V1581 PERS HX 02-16-2014 [facility]COMPLIAN [facility] CE W/MED TX INC PRS HAZARDS HLTH V8541 BODY MASS 02-16-2014 [facility] INDEX [facility] 40.0-44.9 INC ADULT 276.8 Hypokalemia [facility] 416.9 Cor [facility] [id number] Gastritis [facility] [id number] Pulmonary [facility] [id number] Chronic [facility] Allergies, Adverse Reactions, Alerts Type Drug Allergy Adverse Reaction to Substance Substance Reaction Severity Sulfonamide Unknown Unknown Sulfonamide Related I-RASH Intermediate Clinical Alert Notifications Alert Diabetes: no A1C in the last 6 months Diabetes: no eye exam in the last 365 days Diabetes: no influenza vaccine in the last 365 days Diabetes: no lipid panel in the last 365 days Diabetes: no urine protein screening in the last 365 days Medications Na ND Rx Da Fi Fi Am Da Di Ph RX Ph St me C No te ll ll ou ys ag ar # ys at rm s nt no ma ic us Or Da si cy ia de te s n re d Sa 63 09 0 No li 80 -0 ne 70 7- Lo 10 20 ng Fl 07 13 er us 5 h Ac 10 ti ML ve Sy ri ng e SO 00 09 0 No IDALMIS 00 -0 -M 90 7- Lo ED 04 20 ng RO 72 13 er L 2 12 Ac 5 ti MG ve AL KE 00 09 0 No TO 40 -0 RO 93 7- Lo LA 79 20 ng C 50 13 er 30 1 Ac MG ti /M ve L AL Mo 00 09 0 No rp 40 -0 hi 91 7- Lo ne 25 20 ng 83 13 er 4M 0 G/ Ac Ml ti ve Sy ri ng e CO 64 08 0 No LC 76 -1 RY 40 1- Lo S 11 20 ng 0. 90 13 er 6 7 MG Ac ti TA ve BL ET De 00 08 0 No xa 51 -1 me 74 1- Lo th 90 20 ng as 12 13 er on 5 e Ac 4M ti G/ ve Ml Sd v HY [address] 40 -1 OM 91 1- Lo OR 31 20 ng PH 23 13 er ON 0 E Ac 2 ti MG ve /M L CA RP UJ CT AD 49 07 0 No AC 28 -0 EL 10 3- Lo 40 20 ng TD 01 13 er AP 0 Ac ti AL ve LI 00 07 0 No DO 40 -0 CA 94 3- Lo IN 27 20 ng E 90 13 er HC 2 L Ac 1% ti ve AL AC 51 07 0 No ET 07 -0 AM 90 3- Lo IN 16 20 ng OP 19 13 er HE 9H N Ac W/ ti CO ve DE IN E #3 TA K LEONIE 00 05 0 No L 40 -0 40 97 6- Lo 11 20 ng ME 60 13 er Q- 9 NS Ac ti 1, ve 00 0 ML IV SO LN CL 51 05 1 No OP 07 -0 ID 90 6- Lo OG 55 20 ng RE 72 13 er L 0 75 Ac ti MG ve TA BL ET ES 00 05 1 No TR 43 -0 AC 00 6- Lo E 72 20 ng 1 12 13 er MG 4 Ac TA ti BL ve ET FU 51 05 1 No RO 07 -0 SE 90 6- Lo ID 07 20 ng DE 32 13 er 0 40 Ac ti MG ve TA BL ET Ga 68 05 1 No ba 08 -0 pe 40 6- Lo nt 08 20 ng in 00 13 er 1 30 Ac 0M ti G ve Ca ps ul e Li 00 05 1 No si 17 -0 no 23 6- Lo pr 75 20 ng il 91 13 er 0 10 Ac MG ti ve Ta bl et ME 51 05 1 No TO 07 -0 LA 90 6- Lo ZO 02 20 ng NE 32 13 er 0 2. Ac 5 ti MG ve TA BL ET ID 11 05 1 No RA 52 -0 LA 37 6- Lo X 26 20 ng PO 80 13 er WD 8 ER Ac ti PA ve CK ET IP 00 05 1 No RA 48 -0 T- 70 6- Lo AL 20 20 ng BU 10 13 er T 1 0. Ac 5- ti 3( ve 2. 5) MG /3 ML BE 57 05 1 No NZ 66 -0 ON 40 6- Lo AT 13 20 ng AT 38 13 er E 8 10 Ac 0 ti MG ve CA PS UL E Du 00 05 1 No lo 00 -0 xe 23 6- Lo ti 24 20 ng ne 03 13 er 3 30 Ac MG ti ve Ca ps ul e GA 62 05 1 No BA 75 -0 PE 60 6- Lo NT 20 20 ng IN 20 13 er 1 60 Ac 0 ti MG ve TA BL ET PA 51 05 1 No NT 07 -0 OP 90 6- Lo RA 05 20 ng ZO 12 13 er LE 0 Ac SO ti D ve DR 40 MG TA B Pa 00 05 1 No xi 90 -0 l 46 6- Lo 20 11 20 ng MG 06 13 er . 1 Ta Ac bl ti et ve Qu 00 05 1 No et 31 -0 ia 00 6- Lo pi 27 20 ng ne 13 13 er 9 10 Ac 0M ti G ve Ta bl et RE 00 05 1 No QU 00 -0 IP 74 6- Lo 1 89 20 ng 22 13 er MG 0 Ac TA ti BL ve ET Sa 63 05 1 No li 80 -0 ne 70 5- Lo 10 20 ng Fl 07 13 er us 5 h Ac 10 ti ML ve Sy ri ng e KE 00 05 0 No TO 40 -0 RO 93 5- Lo LA 79 20 ng C 50 13 er 30 1 Ac MG ti /M ve L AL Po 00 05 0 No ta 24 -0 ss 50 5- Lo iu 05 20 ng m 80 13 er Ch 1 lo Ac ri ti de ve 20 ME Q Ta bl e TY 50 05 2 No LE 58 -0 NO 00 5- Lo L 45 20 ng EX 10 13 er -S 3 TR Ac ti 50 [address] ET FS 05 2 No -0 BL 5- Lo OO 20 ng D 13 er AMOR GA Ac R ti ve IP 00 05 1 No RA 48 -0 T- 70 5- Lo AL 20 20 ng BU 10 13 er T 1 0. Ac 5- ti 3( ve 2. 5) MG /3 ML AT 62 05 2 No EN 58 -0 OL 40 5- Lo OL 46 20 ng 70 13 er 50 1 Ac MG ti ve TA BL ET LI 00 05 2 No PI 07 -0 TO 10 5- Lo R 15 20 ng 40 74 13 er 0 MG Ac ti TA ve BL ET Ga 68 05 1 No ba 08 -0 pe 40 5- Lo nt 08 20 ng in 00 13 er 1 30 Ac 0M ti G ve Ca ps ul e HY [address] 40 -0 OC 60 5- Lo OD 36 20 ng ON 56 13 er -A 2 CE Ac TA ti ID ve NO PH EN 5- 32 5 Ma 00 05 2 No g- 16 -0 Ox 50 5- Lo 02 20 ng 40 21 13 er 0M 0 G Ac Ta ti b ve ME 51 05 2 No TF 07 -0 OR 90 5- Lo ID 17 20 ng N 22 13 er HC 0 L Ac 50 ti 0 ve MG TA BL ET Po 00 05 2 No ta 24 -0 ss 50 5- Lo iu 05 20 ng m 80 13 er Ch 1 lo Ac ri ti de ve 20 ME Q Ta bl e Amor 51 05 2 No cr 07 -0 al 90 5- Lo fa 87 20 ng te 12 13 er 0 1G Ac M ti Ta ve bl et SO 00 05 0 No DI 40 -0 UM 97 5- Lo 98 20 ng CH 30 13 er LO 9 RI Ac DE ti ve 0. 9% SO IDALMIS TI ON LEONIE 00 05 1 No L 40 -0 40 97 5- Lo 11 20 ng ME 60 13 er Q- 9 NS Ac ti 1, ve 00 0 ML IV SO LN Li 00 02 2 No si 17 -1 no 23 5- Lo pr 75 20 ng il 91 13 er 0 10 Ac MG ti ve Ta bl et Du 00 02 2 No lo 00 -1 xe 23 5- Lo ti 24 20 ng ne 03 13 er 3 30 Ac MG ti ve Ca ps ul e ME 51 02 2 No TO 07 -1 LA 90 5- Lo ZO 02 20 ng NE 32 13 er 0 2. Ac 5 ti MG ve TA BL ET SO 00 02 2 No DI 40 -1 UM 97 4- Lo 98 20 ng CH 30 13 er LO 9 RI Ac DE ti ve 0. 9% SO IDALMIS TI ON MA 00 02 3 No PA 90 -1 P 41 4- Lo 32 98 20 ng 5 26 13 er MG 1 Ac TA ti BL ve ET MT 00 02 2 No OM 64 -1 ET 11 4- Lo HDEZ 49 20 ng ZI 53 13 er NE 5 Ac 25 ti ve MG /M L AM PU L FS 02 3 No -1 BL 4- Lo OO 20 ng D 13 er AMOR GA Ac R ti ve HU 00 02 3 No MA 00 -1 LO 27 4- Lo G 51 20 ng 10 01 13 er 0 7 UN Ac IT ti S/ ve ML AL PL 63 02 3 No AV 65 -1 IX 31 4- Lo 17 20 ng 75 10 13 er 3 MG Ac ti TA ve BL ET FU 00 02 3 No RO 40 -1 SE 96 4- Lo ID 10 20 ng DE 20 13 er 4 40 Ac ti MG ve /4 ML AL Ga 68 02 3 No ba 08 -1 pe 40 4- Lo nt 08 20 ng in 00 13 er 1 30 Ac 0M ti G ve Ca ps ul e ME 51 02 1 No TO 07 -1 LA 90 4- Lo ZO 02 20 ng NE 32 13 er 0 2. Ac 5 ti MG ve TA BL ET AT 62 02 3 No EN 58 -1 OL 40 4- Lo OL 46 20 ng 70 13 er 50 1 Ac MG ti ve TA BL ET ME 51 02 3 No TF 07 -1 OR 90 4- Lo ID 17 20 ng N 22 13 er HC 0 L Ac 50 ti 0 ve MG TA BL ET Pa 00 02 3 No xi 90 -1 l 46 4- Lo 20 11 20 ng MG 06 13 er . 1 Ta Ac bl ti et ve IP 00 02 3 No RA 48 -1 T- 70 4- Lo AL 20 20 ng BU 10 13 er T 1 0. Ac 5- ti 3( ve 2. 5) MG /3 ML HY [address] 40 -1 OC 60 4- Lo OD 36 20 ng ON 56 13 er -A 2 CE Ac TA ti ID ve NO PH EN 5- 32 5 AMOR 68 02 3 No CR 09 -1 AL 40 4- Lo FA 17 20 ng TE 16 13 er 1 2 Ac GM ti /1 ve 0 ML AMOR SP LI 00 02 3 No PI 07 -1 TO 10 4- Lo R 15 20 ng 40 74 13 er 0 MG Ac ti TA ve BL ET Ga 00 02 3 No ba 17 -1 pe 24 4- Lo nt 44 20 ng in 31 13 er 0 60 Ac 0M ti G ve Ta bl et MT 00 02 3 No OT 00 -1 ON 80 4- Lo IX 84 20 ng [address] 9 Ac 40 ti ve MG TA BL ET Qu 00 02 3 No et 31 -1 ia 00 4- Lo pi 27 20 ng ne 13 13 er 9 10 Ac 0M ti G ve Ta bl et Pa 00 02 3 No xi 90 -1 l 46 4- Lo 20 11 20 ng MG 06 13 er . 1 Ta Ac bl ti et ve RE 00 02 3 No QU 00 -1 IP 74 4- Lo 1 89 20 ng 22 13 er MG 0 Ac TA ti BL ve ET Po 00 02 3 No ta 24 -1 ss 50 4- Lo iu 04 20 ng m 10 13 er Ch 1 lo Ac ri ti de ve 10 ME Q TA BL E Sa 63 02 1 No li 80 -1 ne 70 3- Lo 10 20 ng Fl 07 13 er us 5 h Ac 10 ti ML ve Sy ri ng e Vital Signs 12-20-2012 21:34 Name Value Interpretat Reference Comment ion Range Body 97.9 [degF] Temperature BP 66 mm[Hg] Diastolic BP Systolic 124 mm[Hg] Heart 85 /min Rate/Pulse O2% 95 % Respiratory 20 /min Rate 12-20-2012 21:24 Name Value Interpretat Reference Comment ion Range BP 66 mm[Hg] Diastolic BP Systolic 124 mm[Hg] Heart 85 /min Rate/Pulse O2% 95 % Respiratory 19 /min Rate 11-23-2012 12:37 Name Value Interpretat Reference Comment ion Range Body 98.1 [degF] Temperature BP 69 mm[Hg] Diastolic BP Systolic 116 mm[Hg] Heart 78 /min Rate/Pulse O2% 95 % Respiratory 20 /min Rate 11-23-2012 12:00 Name Value Interpretat Reference Comment ion Range BP 79 mm[Hg] Diastolic BP Systolic 132 mm[Hg] Heart 86 /min Rate/Pulse O2% 96 % Respiratory 20 /min Rate 10-15-2012 20:30 Name Value Interpretat Reference Comment ion Range Body 97.8 [degF] Temperature BP 88 mm[Hg] Diastolic BP Systolic 148 mm[Hg] Heart 71 /min Rate/Pulse O2% 97 % Respiratory 22 /min Rate 10-15-2012 20:10 Name Value Interpretat Reference Comment ion Range Body 97.8 [degF] Temperature BP 88 mm[Hg] Diastolic BP Systolic 148 mm[Hg] Heart 71 /min Rate/Pulse O2% 97 % Respiratory 22 /min Rate 08-19-2012 14:20 Name Value Interpretat Reference Comment ion Range Body 97.9 [degF] Temperature BP 57 mm[Hg] Diastolic BP Systolic 107 mm[Hg] Heart 75 /min Rate/Pulse Respiratory 22 /min Rate 08-19-2012 11:17 Name Value Interpretat Reference Comment ion Range O2% 97 % 08-17-2012 18:35 Name Value Interpretat Reference Comment ion Range Height 167.64 cm Weight 103.420 kg Measured 08-17-2012 12:03 Name Value Interpretat Reference Comment ion Range Body 97.9 [degF] Temperature BP 62 mm[Hg] Diastolic BP Systolic 133 mm[Hg] Heart 79 /min Rate/Pulse O2% 99 % Respiratory 18 /min Rate Weight 0 [oz_av] Measured 06-01-2012 10:00 Name Value Interpretat Reference Comment ion Range Body 97.7 [degF] Temperature BP 56 mm[Hg] Diastolic BP Systolic 123 mm[Hg] Heart 82 /min Rate/Pulse Respiratory 20 /min Rate 06-01-2012 08:00 Name Value Interpretat Reference Comment ion Range O2% 95 % 05-29-2012 01:44 Name Value Interpretat Reference Comment ion Range Height 167.64 cm Weight 109.544 kg Measured 05-28-2012 23:12 Name Value Interpretat Reference Comment ion Range Body 98 [degF] Temperature BP 81 mm[Hg] Diastolic BP Systolic 164 mm[Hg] Heart 88 /min Rate/Pulse O2% 88 % Respiratory 25 /min Rate Weight 00 [oz_av] Measured Results Labs Lab Lab Date Result Refere Interp Status Commen Order Detail nces retati t Range on BASIC METABOLIC PANEL (12-20-2012 21:05) Glucose 111 74-106 complet 013 mg/dL ed Bld-mCn 21:05 c BUN 27 7-18 complet Bld-mCn 013 mg/dL ed c 21:05 Creat 1.2 0.6-1.0 complet SerPl-m 013 mg/dL ed Cnc 21:05 ESTIMAT 83 50-200 complet ED 013 ML/MIN ed CREATIN 21:05 INE CLEARAN CE GFR 46 59- complet (ESTIMA 013 ML/MIN ed JULIANNE) 21:05 Sodium 138 136-145 complet SerPl-s 013 mmoL/L ed Cnc 21:05 Potassi 3.0 3.5-5.1 complet um 013 mmoL/L ed SerPl-s 21:05 Cnc Chlorid 96 98-107 complet e 013 mmoL/L ed SerPl-s 21:05 Cnc CO2 35 21.0-32 complet SerPl-s 013 mmoL/L .0 ed Cnc 21:05 Calcium 8.6 8.5-10. complet 013 mg/dL 1 ed SerPl-m 21:05 Cnc URIC ACID (12-20-2012 21:05) URIC 8.8 2.6-7.2 complet ACID 013 mg/dL ed 21:05 CBC with AUTO DIFF (12-20-2012 21:05) WBC # 10.1 4.8-10. complet Bld 013 K/MM3 8 ed Auto 21:05 RBC # 4.43 4.2-5.4 complet Bld 013 M/mm3 ed Auto 21:05 Hgb 12.4 12.2-16 complet Bld-mCn 013 g/dL .2 ed c 21:05 Hct Fr 09-07-2 37.6 % 37.0-47 complet Bld 013 .0 ed 21:05 MCV RBC 07-2 84.9 fl 82.2-97 complet 013 .8 ed 21:05 MCH RBC 07-2 28.1 pg 27-31.2 complet Qn 013 ed Auto 21:05 MEAN 07-2 33.1 31.8-35 complet CORPUSC 013 g/dl .4 ed ULAR 21:05 HGB CONC RDW RBC 07-2 15.4 % 11.5-17 complet Auto 013 .5 ed 21:05 Platele 07-2 270 142-424 complet t Bld 013 K/mm3 ed Ql 21:05 Manual MEAN 8.1 fl 7.4-10. complet PLATELE 013 4 ed T 21:05 VOLUME Granulo 07-2 67.8 % 37.0-80 complet cytes 013 .0 ed Fr Bld 21:05 Auto LYMPH % 07-2 24.0 % 10-50.0 complet 013 ed 21:05 Monocyt 07-2 5.6 % 1.7-9.3 complet es Fr 013 ed Bld 21:05 Auto Eosinop -07-2 2.2 % 0.1-12. complet hil Fr 013 0 ed Bld 21:05 Auto Basophi -07-2 0.3 % 0.1-2.0 complet ls Fr 013 ed Bld 21:05 Auto Granulo 09-07-2 6.8 1.8-7.8 complet cytes # 013 K/mm3 ed Bld 21:05 Auto Lymphoc -07-2 2.4 0.7-4.5 complet ytes Fr 013 K/mm3 ed Bld 21:05 Auto Monocyt 09-07-2 0.6 0.1-1.0 complet es # 013 K/mm3 ed Bld 21:05 Auto Eosinop 09-07-2 0.2 0.0-0.4 complet hil # 013 K/mm3 ed Bld 21:05 Auto Basophi 09-07-2 0.0 0-0.2 complet ls # 013 K/MM3 ed Bld 21:05 Auto URIC ACID (11-23-2012 11:30) URIC 11-23- 9.1 2.6-7.2 complet ACID 013 mg/dL ed 11:30 Glucose [facility] (08-19-2012 11:55) Glucose 166 70-110 complet BldC 013 mg/dl ed [facility]comt 11:55 [facility] (08-19-2012 06:34) Glucose 103 70-110 complet BldC 013 mg/dl ed Glucomt 06:34 [facility] COMPREHENSIVE METABOLIC PANEL (08-19-2012 06:05) Glucose 96 74-106 complet 013 mg/dL ed Bld-mCn 06:05 c BUN 26 7-18 complet Bld-mCn 013 mg/dL ed c 06:05 Creat 1.2 0.6-1.0 complet SerPl-m 013 mg/dL ed Cnc 06:05 ESTIMAT 86 50-200 complet ED 013 ML/MIN ed CREATIN 06:05 INE CLEARAN CE GFR 46 59- complet (ESTIMA 013 ML/MIN ed JULIANNE) 06:05 Sodium 138 136-145 complet SerPl-s 013 mmoL/L ed Cnc 06:05 Potassi 3.4 3.5-5.1 complet um 013 mmoL/L ed SerPl-s 06:05 Cnc Chlorid 101 98-107 complet e 013 mmoL/L ed SerPl-s 06:05 Cnc CO2 35 21.0-32 complet SerPl-s 013 mmoL/L .0 ed Cnc 06:05 Calcium 8.1 8.5-10. complet 013 mg/dL 1 ed SerPl-m 06:05 Cnc Prot 5.8 6.4-8.2 complet SerPl-m 013 gm/dL ed Cnc 06:05 Albumin 2.3 3.4-5.0 complet 013 gm/dL ed SerPl-m 06:05 Cnc Globuli 3.5 1.3-3.2 complet n 013 gm/dL ed Ser-mCn 06:05 c Albumin 0.7 UNK 1.1-1.8 complet /Glob 013 ed SerPl-m 06:05 Rto Bilirub 0.2 0.2-1.0 complet 013 mg/dL ed SerPl-m 06:05 Cnc AST 17 U/L 15-37 complet SerPl-c 013 ed Cnc 06:05 ALT 31 U/L 30-65 complet SerPl-c 013 ed Cnc 06:05 ALP 119 U/L 50-136 complet SerPl-c 013 ed Cnc 06:05 CBC with AUTO DIFF (08-19-2012 06:05) WBC # 08-19- 6.0 4.8-10. complet Bld 013 K/MM3 8 ed Auto 06:05 RBC # 08-19- 3.85 4.2-5.4 complet Bld 013 M/mm3 ed Auto 06:05 Hgb 10.4 12.2-16 complet Bld-mCn 013 g/dL .2 ed c 06:05 Hct Fr 32.0 % 37.0-47 complet Bld 013 .0 ed 06:05 MCV RBC 83.1 fl 82.2-97 complet 013 .8 ed 06:05 MCH RBC 27.1 pg 27-31.2 complet Qn 013 ed Auto 06:05 MEAN 32.6 31.8-35 complet CORPUSC 013 g/dl .4 ed ULAR 06:05 HGB CONC RDW RBC 15.8 % 11.5-17 complet Auto 013 .5 ed 06:05 Platele 304 142-424 complet t Bld 013 K/mm3 ed Ql 06:05 Manual MEAN 8.0 fl 7.4-10. complet PLATELE 013 4 ed T 06:05 VOLUME Granulo 50.0 % 37.0-80 complet cytes 013 .0 ed Fr Bld 06:05 Auto LYMPH % 38.9 % 10-50.0 complet 013 ed 06:05 Monocyt 5.5 % 1.7-9.3 complet es Fr 013 ed Bld 06:05 Auto Eosinop 5.2 % 0.1-12. complet hil Fr 013 0 ed Bld 06:05 Auto Basophi 05-07-2 0.3 % 0.1-2.0 complet ls Fr 013 ed Bld 06:05 Auto Granulo 05-07-2 3.0 1.8-7.8 complet cytes # 013 K/mm3 ed Bld 06:05 Auto Lymphoc 05-07-2 2.4 0.7-4.5 complet ytes Fr 013 K/mm3 ed Bld 06:05 Auto Monocyt 05-07-2 0.3 0.1-1.0 complet es # 013 K/mm3 ed Bld 06:05 Auto Eosinop 05-07-2 0.3 0.0-0.4 complet hil # 013 K/mm3 ed Bld 06:05 Auto Basophi 05-07-2 0.0 0-0.2 complet ls # 013 K/MM3 ed Bld 06:05 Auto Glucose [facility] (08-18-2012 20:33) Glucose 05-06-2 150 70-110 complet BldC 013 mg/dl ed Glucomt 20:33 r-nc Glucose [facility]ldC [facility] (08-18-2012 17:05) Glucose 05-06-2 162 70-110 complet BldC 013 mg/dl ed Glucomt 17:05 r[facility] (08-18-2012 11:49) Glucose 05-06-2 130 70-110 complet BldC 013 mg/dl ed Glucomt 11:49 r-nc URINALYSIS/COMPLETE (08-18-2012 11:38) URINE -06-2 YELLOW YELLOW complet COLOR 013 ed 11:38 URINE -06-2 CLEAR CLEAR complet APPEARA 013 ed NCE 11:38 URINE 05-06-2 NEGATIV NEG complet GLUCOSE 013 E ed - 11:38 DIPSTIC K URINE 05-06-2 NEGATIV NEG complet BILIRUB 013 E ed IN - 11:38 DIPSTIC K URINE 05-06-2 NEGATIV NEG complet KETONE 013 E mg/dL ed 11:38 URINE 05-06-2 1.010 1.005-1 complet SPECIFI 013 UNK .030 ed C 11:38 GRAVITY URINE -06-2 NEGATIV NEG complet BLOOD 013 E ed 11:38 URINE 05-06-2 6.0 UNK 5.0-8.5 complet PH 013 ed 11:38 URINE NEGATIV NEG complet PROTEIN 013 E mg/dL ed - 11:38 DIPSTIC K URINE 2 0.2 NEG complet UROBILI 013 E.U./dL ed NOGEN - 11:38 DIPSTIC K URINE NEGATIV NEG complet NITRATE 013 E ed - 11:38 DIPSTIC K URINE NEGATIV NEG complet LEUK 013 E ed ESTERAS 11:38 E URINE 3-5 O complet WBC 013 wbc/hpf ed 11:38 URINE OCC 0-5 complet SQUAMOU 013 #/hpf ed S CELLS 11:38 Glucose dC [facility] (08-18-2012 06:37) Glucose 108 70-110 complet BldC 013 mg/dl ed Glucomt 06:37 r[facility] Glucose dC [facility] (08-17-2012 21:07) Glucose 176 70-110 complet BldC 013 mg/dl ed Glucomt 21:07 [facility] COMPREHENSIVE METABOLIC PANEL (08-17-2012 12:45) Glucose 164 74-106 complet 013 mg/dL ed Bld-mCn 12:45 c BUN 31 7-18 complet Bld-mCn 013 mg/dL ed c 12:45 Creat 1.2 0.6-1.0 complet SerPl-m 013 mg/dL ed Cnc 12:45 ESTIMAT 83 50-200 complet ED 013 ML/MIN ed CREATIN 12:45 INE CLEARAN CE GFR 46 59- complet (ESTIMA 013 ML/MIN ed JULIANNE) 12:45 Sodium 138 136-145 complet SerPl-s 013 mmoL/L ed Cnc 12:45 Potassi 2.4 3.5-5.1 Low complet um 013 mmoL/L alert ed SerPl-s 12:45 Cnc Chlorid 98 98-107 complet e 013 mmoL/L ed SerPl-s 12:45 Cnc CO2 05-05-2 36 21.0-32 complet SerPl-s 013 mmoL/L .0 ed Cnc 12:45 Calcium 05-05-2 8.6 8.5-10. complet 013 mg/dL 1 ed SerPl-m 12:45 Cnc Prot 05-05-2 7.3 6.4-8.2 complet SerPl-m 013 gm/dL ed Cnc 12:45 Albumin 05-05-2 2.9 3.4-5.0 complet 013 gm/dL ed SerPl-m 12:45 Cnc Globuli 05-05-2 4.4 1.3-3.2 complet n 013 gm/dL ed Ser-mCn 12:45 c Albumin 05-05-2 0.7 UNK 1.1-1.8 complet /Glob 013 ed SerPl-m 12:45 Rto Bilirub 05-05-2 0.4 0.2-1.0 complet 013 mg/dL ed SerPl-m 12:45 Cnc AST 05-05-2 22 U/L 15-37 complet SerPl-c 013 ed Cnc 12:45 ALT 05-05-2 36 U/L 30-65 complet SerPl-c 013 ed Cnc 12:45 ALP 05-05-2 172 U/L 50-136 complet SerPl-c 013 ed Cnc 12:45 CBC with AUTO DIFF (08-17-2012 12:45) WBC # 05-05-2 16.3 4.8-10. complet Bld 013 K/MM3 8 ed Auto 12:45 RBC # 05-05-2 4.77 4.2-5.4 complet Bld 013 M/mm3 ed Auto 12:45 Hgb 05-05-2 12.8 12.2-16 complet Bld-mCn 013 g/dL .2 ed c 12:45 Hct Fr 05-05-2 39.4 % 37.0-47 complet Bld 013 .0 ed 12:45 MCV RBC 05-05-2 82.5 fl 82.2-97 complet 013 .8 ed 12:45 MCH RBC 05-05-2 26.8 pg 27-31.2 complet Qn 013 ed Auto 12:45 MEAN 05-05-2 32.6 31.8-35 complet CORPUSC 013 g/dl .4 ed ULAR 12:45 HGB CONC RDW RBC 05-05-2 15.4 % 11.5-17 complet Auto 013 .5 ed 12:45 Platele 05-05-2 329 142-424 complet t Bld 013 K/mm3 ed Ql 12:45 Manual MEAN 05-05-2 7.7 fl 7.4-10. complet PLATELE 013 4 ed T 12:45 VOLUME Granulo 05-05-2 87.6 % 37.0-80 complet cytes 013 .0 ed Fr Bld 12:45 Auto LYMPH % 05-05-2 6.8 % 10-50.0 complet 013 ed 12:45 Monocyt 05-05-2 4.3 % 1.7-9.3 complet es Fr 013 ed Bld 12:45 Auto Eosinop 05-05-2 1.2 % 0.1-12. complet hil Fr 013 0 ed Bld 12:45 Auto Basophi 05-05-2 0.2 % 0.1-2.0 complet ls Fr 013 ed Bld 12:45 Auto Granulo 05-05-2 14.3 1.8-7.8 complet cytes # 013 K/mm3 ed Bld 12:45 Auto Lymphoc 05-05-2 1.1 0.7-4.5 complet ytes Fr 013 K/mm3 ed Bld 12:45 Auto Monocyt 05-05-2 0.7 0.1-1.0 complet es # 013 K/mm3 ed Bld 12:45 Auto Eosinop 05-05-2 0.2 0.0-0.4 complet hil # 013 K/mm3 ed Bld 12:45 Auto Basophi 05-05-2 0.0 0-0.2 complet ls # 013 K/MM3 ed Bld 12:45 Auto Glucose [facility] ([facility]-2012 06:56) Glucose 101 70-110 complet BldC 013 mg/dl ed Glucomt 06:56 [facility]C [facility] (05-31-2012 20:27) Glucose 161 70-110 complet BldC 013 mg/dl ed [facility] (05-31-2012 16:53) Glucose 115 70-110 complet BldC 013 mg/dl ed Glucomt 16:53 r-mCnc BASIC METABOLIC PANEL (05-31-2012 12:22) Glucose 114 74-106 complet 013 mg/dL ed Bld-mCn 12:22 c BUN 42 7-18 complet Bld-mCn 013 mg/dL ed c 12:22 Creat 1.5 0.6-1.0 complet SerPl-m 013 mg/dL ed Cnc 12:22 ESTIMAT 70 50-200 complet ED 013 ML/MIN ed CREATIN 12:22 INE CLEARAN CE GFR 36 59- complet (ESTIMA 013 ML/MIN ed JULIANNE) 12:22 Sodium 134 136-145 complet SerPl-s 013 mmoL/L ed Cnc 12:22 Potassi 4.2 3.5-5.1 complet um 013 mmoL/L ed SerPl-s 12:22 Cnc Chlorid 94 98-107 complet e 013 mmoL/L ed SerPl-s 12:22 Cnc CO2 35 21.0-32 complet SerPl-s 013 mmoL/L .0 ed Cnc 12:22 Calcium 8.7 8.5-10. complet 013 mg/dL 1 ed SerPl-m 12:22 Cnc Glucose dC [facility] (05-31-2012 11:57) Glucose 175 70-110 complet BldC 013 mg/dl ed Glucomt 11:57 [facility] Gl[facility]C [facility] (05-31-2012 09:35) Glucose 105 70-110 complet BldC 013 mg/dl ed Glucomt 09:35 [facility] Gl[facility]C [facility] (05-31-2012 07:47) Glucose 170 70-110 complet BldC 013 mg/dl ed Glucomt 07:47 r-nc Glucose BldC [facility] (05-31-2012 06:22) Glucose 89 70-110 complet BldC 013 mg/dl ed Glucomt 06:22 [facility] (05-30-2012 21:31) Glucose 163 70-110 complet BldC 013 mg/dl ed Glucomt 21:31 r-nc Glucose BldC [facility] (05-30-2012 16:38) Glucose 05-30-2 150 70-110 complet BldC 013 mg/dl ed Glucomt 16:38 r-nc Glucose BldC [facility] (05-30-2012 11:35) Glucose 05-30-2 104 70-110 complet BldC 013 mg/dl ed Glucomt 11:35 r-nc Glucose BldC [facility] (05-30-2012 06:33) Glucose 05-30-2 109 70-110 complet BldC 013 mg/dl ed Glucomt 06:33 [facility] BASIC METABOLIC PANEL (05-30-2012 06:32) Glucose 105 74-106 complet 013 mg/dL ed Bld-mCn 06:32 c BUN 35 7-18 complet Bld-mCn 013 mg/dL ed c 06:32 Creat 1.3 0.6-1.0 complet SerPl-m 013 mg/dL ed Cnc 06:32 ESTIMAT 81 50-200 complet ED 013 ML/MIN ed CREATIN 06:32 INE CLEARAN CE GFR 42 59- complet (ESTIMA 013 ML/MIN ed JULIANNE) 06:32 Sodium 140 136-145 complet SerPl-s 013 mmoL/L ed Cnc 06:32 Potassi 3.8 3.5-5.1 complet um 013 mmoL/L ed SerPl-s 06:32 Cnc Chlorid 97 98-107 complet e 013 mmoL/L ed SerPl-s 06:32 Cnc CO2 33 21.0-32 complet SerPl-s 013 mmoL/L .0 ed Cnc 06:32 Calcium 8.5 8.5-10. complet 013 mg/dL 1 ed SerPl-m 06:32 Cnc CBC with AUTO DIFF (05-30-2012 06:32) WBC # 05-30-2 7.7 4.8-10. complet Bld 013 K/MM3 8 ed Auto 06:32 RBC # 02-15-2 4.04 4.2-5.4 complet Bld 013 M/mm3 ed Auto 06:32 Hgb 02-15-2 10.7 12.2-16 complet Bld-mCn 013 g/dL .2 ed c 06:32 Hct Fr -15-2 33.9 % 37.0-47 complet Bld 013 .0 ed 06:32 MCV RBC -15-2 83.9 fl 82.2-97 complet 013 .8 ed 06:32 MCH RBC 15-2 26.4 pg 27-31.2 complet Qn 013 ed Auto 06:32 MEAN -15-2 31.5 31.8-35 complet CORPUSC 013 g/dl .4 ed ULAR 06:32 HGB CONC RDW RBC -15-2 15.7 % 11.5-17 complet Auto 013 .5 ed 06:32 Platele -15-2 386 142-424 complet t Bld 013 K/mm3 ed Ql 06:32 Manual MEAN 15-2 7.4 fl 7.4-10. complet PLATELE 013 4 ed T 06:32 VOLUME Granulo -15-2 64.0 % 37.0-80 complet cytes 013 .0 ed Fr Bld 06:32 Auto LYMPH % -15-2 27.8 % 10-50.0 complet 013 ed 06:32 Monocyt 02-15-2 3.9 % 1.7-9.3 complet es Fr 013 ed Bld 06:32 Auto Eosinop 02-15-2 3.8 % 0.1-12. complet hil Fr 013 0 ed Bld 06:32 Auto Basophi 02-15-2 0.4 % 0.1-2.0 complet ls Fr 013 ed Bld 06:32 Auto Granulo 02-15-2 4.9 1.8-7.8 complet cytes # 013 K/mm3 ed Bld 06:32 Auto Lymphoc 02-15-2 2.2 0.7-4.5 complet ytes Fr 013 K/mm3 ed Bld 06:32 Auto Monocyt 02-15-2 0.3 0.1-1.0 complet es # 013 K/mm3 ed Bld 06:32 Auto Eosinop 02-15-2 0.3 0.0-0.4 complet hil # 013 K/mm3 ed Bld 06:32 Auto Basophi 02-15-2 0.0 0-0.2 complet ls # 013 K/MM3 ed Bld 06:32 Auto Glucose BldC Glucomtr-mCnc (05-29-2012 21:06) Glucose 148 70-110 complet BldC 013 mg/dl ed Glucomt 21:06 r-mCnc Glucose BldC Glucomtr-mCnc (05-29-2012 16:53) Glucose 110 70-110 complet BldC 013 mg/dl ed Glucomt 16:53 r-mCnc Glucose BldC Glucomtr-mCnc (05-29-2012 11:57) Glucose 177 70-110 complet BldC 013 mg/dl ed Glucomt 11:57 r-mCnc Glucose BldC Glucomtr-nc (05-29-2012 09:46) Glucose 139 70-110 complet BldC 013 mg/dl ed Glucomt 09:46 r-mCnc Glucose BldC Glucomtr-nc (05-29-2012 06:13) Glucose 115 70-110 complet BldC 013 mg/dl ed Glucomt 06:13 r-mCnc THYROID STIM HORMONE (05-29-2012 00:01) THYROID 3.96 0.358-3 complet STIM 013 uIU/ml .740 ed HORMONE 00:01 COMPREHENSIVE METABOLIC PANEL (05-28-2012 23:50) Glucose 117 74-106 complet 013 mg/dL ed Bld-mCn 23:50 c BUN 37 7-18 complet Bld-mCn 013 mg/dL ed c 23:50 Creat 1.1 0.6-1.0 complet SerPl-m 013 mg/dL ed Cnc 23:50 Creat 95 50-200 complet Cl 013 ML/MIN ed predict 23:50 ed SerPl C-G-vRa te GFR/BSA 51 59- complet .pred 013 ML/MIN ed SerPl 23:50 Schwart z-vRate Sodium 140 136-145 complet SerPl-s 013 mmoL/L ed Cnc 23:50 POTASSI 02-13-2 4.4 3.5-5.1 complet UM 013 mmoL/L ed 23:50 Chlorid 05-28- 103 98-107 complet e 013 mmoL/L ed SerPl-s 23:50 Cnc CO2 29 21.0-32 complet SerPl-s 013 mmoL/L .0 ed Cnc 23:50 Calcium 8.8 8.5-10. complet 013 mg/dL 1 ed SerPl-m 23:50 Cnc Prot 05-28-2 6.8 6.4-8.2 complet SerPl-m 013 gm/dL ed Cnc 23:50 Albumin 2.7 3.4-5.0 complet 013 gm/dL ed SerPl-m 23:50 Cnc Globuli 4.1 1.3-3.2 complet n 013 gm/dL ed Ser-mCn 23:50 c Albumin 0.7 UNK 1.1-1.8 complet /Glob 013 ed SerPl-m 23:50 Rto Bilirub 0.3 0.2-1.0 complet 013 mg/dL ed SerPl-m 23:50 Cnc AST 20 U/L 15-37 complet SerPl-c 013 ed Cnc 23:50 ALT 35 U/L 30-65 complet SerPl-c 013 ed Cnc 23:50 ALP 05-28-2 146 U/L 50-136 complet SerPl-c 013 ed Cnc 23:50 BNP Bld-mCnc (05-28-2012 23:50) BNP 05-28-2 345 0-100 complet Bld-mCn 013 pg/mL ed c 23:50 CBC with AUTO DIFF (05-28-2012 23:50) WBC # --2 10.9 4.8-10. complet Bld 013 K/MM3 8 ed Auto 23:50 RBC # 05-28-2 3.91 4.2-5.4 complet Bld 013 M/mm3 ed Auto 23:50 Hgb 05-28- 10.3 12.2-16 complet Bld-mCn 013 g/dL .2 ed c 23:50 Hct Fr 32.1 % 37.0-47 complet Bld 013 .0 ed 23:50 MCV RBC 05-28-2 82.1 fl 82.2-97 complet 013 .8 ed 23:50 MCH RBC 05-28-2 26.4 pg 27-31.2 complet Qn 013 ed Auto 23:50 MEAN 05-28-2 32.2 31.8-35 complet CORPUSC 013 g/dl .4 ed ULAR 23:50 HGB CONC RDW RBC 05-28-2 15.7 % 11.5-17 complet Auto 013 .5 ed 23:50 Platele 05-28-2 380 142-424 complet t Bld 013 K/mm3 ed Ql 23:50 Manual MEAN 2 7.6 fl 7.4-10. complet PLATELE 013 4 ed T 23:50 VOLUME Granulo 05-28-2 79.2 % 37.0-80 complet cytes 013 .0 ed Fr Bld 23:50 Auto LYMPH % -13-2 15.1 % 10-50.0 complet 013 ed 23:50 Monocyt --2 3.6 % 1.7-9.3 complet es Fr 013 ed Bld 23:50 Auto Eosinop -13-2 1.8 % 0.1-12. complet hil Fr 013 0 ed Bld 23:50 Auto Basophi 02-13-2 0.3 % 0.1-2.0 complet ls Fr 013 ed Bld 23:50 Auto Granulo 02-13-2 8.7 1.8-7.8 complet cytes # 013 K/mm3 ed Bld 23:50 Auto Lymphoc -13-2 1.7 0.7-4.5 complet ytes Fr 013 K/mm3 ed Bld 23:50 Auto Monocyt 02-13-2 0.4 0.1-1.0 complet es # 013 K/mm3 ed Bld 23:50 Auto Eosinop 02-13-2 0.2 0.0-0.4 complet hil # 013 K/mm3 ed Bld 23:50 Auto Basophi 02-13-2 0.0 0-0.2 complet ls # 013 K/MM3 ed Bld 23:50 Auto Procedures Procedure DOS Code Location Performer Comment PRTBLE E0431 [facility], [facility], [facility] 5 INC INC O2 SYS RENT; FLWMTR HUMIDFR&M ASK O2 CONC 1 E1390 KAYA KIRKPATRICK DEL PORT 5 INC INC 85%/>02 CONC AT PRS FLW RATE REPL PATRICIO A4233 DIABETIC DIABETIC ALKALINE 5 EXPERTS EXPERTS NOT J OF OF CELL EVELIN K[place] KALPES[facility] BG MON OWND PT BLD GLU A4253 DIABETIC DIABETIC TEST/REAG 5 EXPERTS EXPERTS T STRIPS OF OF HOME BLD [place] GLU MON-50 NORMAL A4256 DIABETIC DIABETIC LOW AND 5 EXPERTS EXPERTS HIGH OF OF CALIBRATO K[place] KALPES[place] R SOLUTION/ CHIPS LANCETS A4259 DIABETIC DIABETIC PER BOX 5 EXPERTS EXPERTS OF 100 OF OF [place] ADMN SET A7003 KAYA KIRKPATRICK, VOL 5 INC INC NONFILTR PNEUMAT NEBULIZR DISPBL ALBUTEROL J7620 RELIANT RELIANT TO 2.5 5 PHARMACY PHARMACY MG & SERVICES SERVICES IPRATROPI UM BROM TO 0.5 MG PHRM Q0513 RELIANT RELIANT DISPENSIN 5 PHARMACY PHARMACY G FEE SERVICES SERVICES INHALATIO N RX; PER 30 DAYS O2 CONC 1 E1390 KAYA KIRKPATRICK, DEL PORT 5 INC INC 85%/>02 CONC AT PRS FLW RATE PRTBLE E0431 KAYA KIRKPATRICK, GASEOUS 5 INC INC O2 SYS RENT; FLWMTR HUMIDFR&M ASK ALBUTEROL J7620 RELIANT RELIANT TO 2.5 5 PHARMACY PHARMACY MG & SERVICES SERVICES IPRATROPI UM BROM TO 0.5 MG PHRM Q0513 RELIANT RELIANT DISPENSIN 5 PHARMACY PHARMACY G FEE SERVICES SERVICES INHALATIO N RX; PER 30 DAYS MISC TX T1999 [facility] ITEMS & 5 TRACE TRACE [facility] AREA AREA RETAIL AGENCY ON AGENCY ON PURCHASE NOC HOME CARE S5108 [facility] TRAINING 5 TRACE TRACE HOME AREA AREA CARE AGENCY ON AGENCY ON CLIENT PER 15 MIN PRTBLE E0431 KAYA KIRKPATRICK, GASEOUS 5 INC INC O2 SYS RENT; FLWMTR HUMIDFR&M ASK O2 CONC 1 E1390 KAYA KIRKPATRICK, DEL PORT 5 INC INC 85%/>02 CONC AT PRS FLW RATE HOME CARE S5108 [facility] TRAINING 5 TRACE TRACE HOME AREA AREA CARE AGENCY ON AGENCY ON CLIENT PER 15 MIN MISC TX T1999 [facility] ITEMS & 5 TRACE TRACE SPL AREA AREA RETAIL AGENCY ON AGENCY ON PURCHASE NOC THERAPEUT 90475 JESSICA LOPEZ IC PX 1/> 5 [facility] AREAS INC INC EACH 15 MIN EXERCISES PHYSICAL 06846 JESSICA LOPEZ THERAPY 5 [facility] HOSP EVALUATIO INC INC N HOME CARE S5108 [facility] TRAINING 5 TRACE TRACE HOME AREA AREA CARE AGENCY ON AGENCY ON CLIENT PER 15 MIN PRTBLE E0431 [facility], [facility], GASEOUS 5 INC INC O2 SYS RENT; FLWMTR HUMIDFR&M ASK O2 CONC 1 E1390 [facility], DEL PORT 5 INC INC 85%/>02 CONC AT [facility] FLW RATE ALBUTEROL J7620 RELIANT RELIANT TO 2.5 5 PHARMACY PHARMACY MG & SERVICES SERVICES IPRATROPI UM BROM TO 0.5 MG PHRM Q0513 RELIANT RELIANT DISPENSIN 5 PHARMACY PHARMACY G FEE SERVICES SERVICES INHALATIO N RX; PER 30 DAYS RADEX 73482 JESSICA LOPEZ SHOULDER 5 [facility] HOSP COMPLETE INC INC MINIMUM 2 VIEWS SPRING- A4258 DIABETIC DIABETIC WERED 5 EXPERTS EXPERTS DEVICE OF OF FOR KALPES[place] KALPESH LANCET EACH LANCETS A4259 DIABETIC DIABETIC PER BOX 5 EXPERTS EXPERTS OF 100 OF OF [place] KALPES[place] NORMAL A4256 DIABETIC DIABETIC LOW AND 5 EXPERTS EXPERTS HIGH OF OF CALIBRATO K[place]PES[place] KALPESH R SOLUTION/ CHIPS BLD GLU A4253 DIABETIC DIABETIC TEST/REAG 5 EXPERTS EXPERTS T STRIPS OF OF HOME BLD [place] KALPES[place] GLU MON-50 MISC TX T1999 [facility] ITEMS & 5 TRACE TRACE SPL AREA AREA RETAIL AGENCY ON AGENCY ON PURCHASE NOC HOME CARE S5108 [facility] TRAINING 5 TRACE TRACE HOME AREA AREA CARE AGENCY ON AGENCY ON CLIENT PER 15 MIN ECG [id number] JESSICA JOY JR ROUTINE 5 [facility] W/LEAST P 12 LDS I&R ONLY RADIOLOGI 08499 [facility] C EXAM 5 MEDICAL HANNY CHEST 2 IMAGING VIEWS ASS FRONTAL&L ATERAL HOME CARE S5108 [facility] 5 TRACE TRACE HOME AREA AREA CARE AGENCY ON AGENCY ON CLIENT PER 15 MIN PHRM Q0513 RELIANT RELIANT DISPENSIN 5 PHARMACY PHARMACY G FEE SERVICES SERVICES INHALATIO N RX; PER 30 DAYS ALBUTEROL J7620 RELIANT RELIANT TO 2.5 5 PHARMACY PHARMACY MG & SERVICES SERVICES IPRATROPI UM BROM TO 0.5 MG ADMN SET A7005 [facility], W/SM VOL 5 INC INC NONFILTR NEBULIZR NON-DISPB L O2 CONC 1 E1390 [facility], DEL PORT 5 INC INC 85%/>02 CONC AT PRSC FLW RATE PRTBLE E0431 [facility], GASEOUS 5 INC INC O2 SYS RENT; FLWMTR HUMIDFR&M ASK HOME CARE S5108 [facility] 5 TRACE TRACE HOME AREA AREA CARE AGENCY ON AGENCY ON CLIENT PER 15 MIN MISC TX T1999 [facility] ITEMS & 5 TRACE TRACE SPL AREA AREA RETAIL AGENCY ON AGENCY ON PURCHASE NOC HOME CARE S5108 [facility] 5 TRACE TRACE HOME AREA AREA CARE AGENCY ON AGENCY ON CLIENT PER 15 MIN PRTBLE E0431 [facility], GASEOUS 5 INC INC O2 SYS RENT; FLWMTR HUMIDFR&M ASK O2 CONC 1 E1390 [facility], DEL [place] 5 INC INC 85%/>02 CONC AT PRSC FLW RATE PHRM Q0513 RELIANT RELIANT DISPENSIN 5 PHARMACY PHARMACY G FEE SERVICES SERVICES INHALATIO N RX; PER 30 DAYS ALBUTEROL J7620 RELIANT RELIANT TO 2.5 5 PHARMACY PHARMACY MG & SERVICES SERVICES IPRATROPI UM BROM TO 0.5 MG HOME CARE S5108 [facility] 5 TRACE TRACE HOME AREA AREA CARE AGENCY ON AGENCY ON CLIENT PER 15 MIN MISC TX T1999 [facility] ITEMS & 5 TRACE TRACE SPL AREA AREA RETAIL AGENCY ON AGENCY ON PURCHASE NOC MISC TX T1999 [facility] ITEMS & 5 TRACE TRACE SPL AREA AREA RETAIL AGENCY ON AGENCY ON PURCHASE NOC HOME CARE S5108 [facility] TRAINING 5 TRACE TRACE HOME AREA AREA CARE AGENCY ON AGENCY ON CLIENT PER 15 MIN PRTBLE E0431 [facility], [facility], GASEOUS 5 INC INC O2 SYS RENT; FLWMTR HUMIDFR&M ASK PHRM Q0513 RELIANT RELIANT DISPENSIN 5 PHARMACY PHARMACY G FEE SERVICES SERVICES INHALATIO N RX; PER 30 DAYS O2 CONC 1 E1390 [facility], [facility], [place] 5 INC INC 85%/>02 CONC AT [facility] FLW RATE ALBUTEROL J7620 RELIANT RELIANT TO 2.5 5 PHARMACY PHARMACY MG & SERVICES SERVICES IPRATROPI UM BROM TO 0.5 MG HOME CARE S5108 [facility] TRAINING 5 TRACE TRACE HOME AREA AREA CARE AGENCY ON AGENCY ON CLIENT PER 15 MIN HOME CARE S5108 [facility] TRAINING 5 TRACE TRACE HOME AREA AREA CARE AGENCY ON AGENCY ON CLIENT PER 15 MIN SCREENING G0202 MEAEMILIANO WOFLWLAKISHA 5 W W MAMMOGRAP [facility] HY NIESHA MEDICAL MEDICAL INCL CAD WHEN PERFORMD - 36613 MEADODUANE MEADOWVIE AIDED 5 W W DETECTION REGIONAL [facility] MEDICAL MEDICAL SCREENING MAMMOGRAP HY HOME CARE S5108 [facility] TRAINING 5 TRACE TRACE HOME AREA AREA CARE AGENCY ON AGENCY ON CLIENT PER 15 MIN RADIOLOGI 98204 JESSICA LOPEZ C EXAM 5 [facility] CHEST 2 INC INC VIEWS FRONTAL&L ATERAL COMPREHEN 01987 JESSICA LOPEZ SIVE 5 [facility] METABOLIC INC INC PANEL CYANOCOBA 63484 JESSICA LOPEZ MATT 5 [facility] VITAMIN INC INC B-12 LIPID 64564 JESSICA LOPEZ PANEL 5 [facility] INC INC HEMOGLOBI 89199 JESSICA LOPEZ N 5 [facility] GLYCOSYLA INC INC JULIANNE A1C BLOOD 87107 JESSICA LOPEZ COUNT 5 [facility] COMPLETE INC INC AUTO&AUTO DIFRNTL WBC COLLECTIO 81144 JESSICA Curiel VENOUS 5 [facility] HOSP BLOOD INC INC VENIPUNCT URE MISC TX T1999 [facility] ITEMS & 5 TRACE TRACE SPL AREA AREA RETAIL AGENCY ON AGENCY ON PURCHASE NOC MISC TX T1999 [facility] ITEMS & 5 TRACE TRACE SPL AREA AREA RETAIL AGENCY ON AGENCY ON PURCHASE NOC HOME CARE S5108 [facility] TRAINING 5 TRACE TRACE HOME AREA AREA CARE AGENCY ON AGENCY ON CLIENT PER 15 MIN HOME CARE S5108 [facility] TRAINING 5 TRACE TRACE HOME AREA AREA CARE AGENCY ON AGENCY ON CLIENT PER 15 MIN RADIOLOGI 62289 KENDRA KLINE C EXAM 5 MEDICAL DOMENIC CHEST 2 IMAGING VIEWS ASS FRONTAL&L ATERAL APPLICATI 49386 JESSICA LOPEZ ON SHORT 5 [facility]OS[facility] ARM INC INC SPLINT FOREARM-H AND STATIC RADEX 69206 JESSICA LOPEZ WRIST 5 [facility]OSP COMPLETE INC INC MINIMUM [address] THORAX 97597 JESSICA LOPEZ W/O 5 [facility] CONTRAST INC INC MATERIAL RADEX 07220 JESSICA LOPEZ ANKLE 4 [facility] COMPLETE INC INC MINIMUM 3 VIEWS RADEX 97230 JESSICA LOPEZ ANKLE 4 [facility] COMPLETE INC INC MINIMUM 3 VIEWS RADEX 32076 JESSICA LOPEZ ANKLE 4 [facility] COMPLETE INC INC MINIMUM 3 VIEWS BLOOD [address] PL[place]LET AUTOMATED CATH PLMT [address] [facility] & [address] [place] [address] ARTS W/NJX & ANGIO IMG S&I CATHETER C[address] NAL ANGIOPLAS TY NON-LASER BLOOD [address] HEMATOCRI T CATHETER C[address] BASIC [address] PANEL CALCIUM IONIZED BLOOD 95746 JESSICA LOEPZ COUNT 4 [facility] COMPLETE INC INC AUTO&AUTO DIFRNTL WBC GLUC BLD 63694 JESSICA LOPEZ GLUC MNTR 4 [facility] DEV INC INC CLEARED FDA SPEC [facility] G0378 JESSICA LOPEZ OBSERVATI 4 [facility] ON INC INC SERVICE PER HOUR BASIC 72158 JESSICA LOPEZ METABOLIC 4 [facility] PANEL INC INC CALCIUM TOTAL COLLECTIO 49500 JESSICA LOPEZ N VENOUS 4 [facility] BLOOD INC INC VENIPUNCT URE PRESSURIZ 65351 JESSICA LOPEZ ED/NONPRE 4 [facility] SSURIZED INC INC INHALATIO N TREATMENT NONINVASI 77900 JESSICA LOPEZ VE 4 [facility] EAR/PULSE INC INC OXIMETRY SINGLE DETER NONINVASI 04947 JESSICA LOPEZ VE 4 [facility] EAR/PULSE [place] [address] JESSICA LOPEZ INFUSION 4 [facility] THERAPY/P INC INC ROPHYLAXI S /DX 1ST TO 1 HR PRESSURIZ 32807 JESSICA LOPEZ ED/NONPRE 4 [facility] SSURIZED INC INC INHALATIO N TREATMENT COMPREHEN 02410 JESSICA LOPEZ SIVE 4 [facility] METABOLIC INC INC PANEL RADIOLOGI 42549 JESSICA LOPEZ C 4 [facility] EXAMINATI INC INC ON CHEST [facility] G0378 JESSICA LOPEZ OBSERVATI 4 [facility] ON INC INC SERVICE PER HOUR ECG 91766 JESSICA LOPEZ ROUTINE 4 [facility] ECG INC INC W/LEAST 12 LDS TRCG ONLY W/O I&R URNLS DIP 28398 JESSICA LOPEZ 4 [facility] STICK/TAB INC INC LET REAGENT AUTO MICROSCOP Y GLUC BLD 09371 JESSICA LOPEZ GLUC MNTR 4 [facility] DEV INC INC CLEARED FDA SPEC HOME USE NATRIURET 84691 JESSICA LOPEZ IC 4 [facility] [place] [address] JESSICA LOPEZ TROPONIN 4 [facility] QUANTITAT INC INC MARINE BLOOD 05386 JESSICA LOPEZ COUNT 4 [facility] COMPLETE INC INC AUTO&[place] [address] JESSICA LOPEZ LIPASE 4 [facility] INC INC BLOOD 01316 JESSICA LOPEZ COUNT 4 [facility] COMPLETE INC INC AUTO&AUTO DIFRNTL WBC THERAPEUT 57237 JESSICA LOPEZ ACTVITY 4 [facility] DIRECT PT INC INC CONTACT EACH 15 MIN COLLECTIO 27232 JESSICA LOPEZ N VENOUS 4 [facility] BLOOD INC INC VENIPUNCT URE PHYSICAL 51443 JESSICA LOPEZ THERAPY 4 [facility] EVALUATIO INC INC N HOSPITAL G0378 JESSICA [facility]OPEZ OBSERVATI 4 [facility] ON INC INC SERVICE PER HOUR BASIC 45552 JESSICA LOPEZ METABOLIC 4 [facility] PANEL INC INC CALCIUM TOTAL NONINVASI 52115 JESSICA LOPEZ VE 4 [facility] EAR/PULSE INC INC OXIMETRY SINGLE DETER PRESSURIZ 51825 JESSICA LOPEZ ED/NONPRE 4 [facility] SSURIZED INC INC INHALATIO N TREATMENT PRESSURIZ 06782 JESS[facility] ED/NONPRE 4 [facility] SSURIZED INC INC INHALATIO N TREATMENT NONINVASI 40003 [facility] VE [facility] EAR/PULSE INC INC OXIMETRY SINGLE DETER THERAPEUT 93510 [facility]ICA [facility] IC 4 [facility] INJECTION INC [place] [address] JESSICA [facility] INFUSION 4 [facility] THERAPY/P INC INC ROPHYLAXI S /DX 1ST TO 1 HR FLUOROSCO 92312 JESSICA LOPEZ PY SPX UP 4 [facility] TO 1 INC INC HOUR PHYS/QHP TIME GUIDE C1769 [facility] WIRE [facility] INC INC CULTURE 94541 [facility] BACTERIAL 4 [facility] INC QUANTTATI VE COLONY COUNT URINE CULTURE 02722 [facility] L[facility] BCT 4 [facility] ISOL&PRSM INC INC PTV ID ISOLATE EA URINE HOSPITAL [id number] JESS[facility]BSERVATI 4 [facility] ON INC INC SERVICE PER HOUR RADIOLOGI 97922 [facility] C [facility] EXAMINATI INC INC ON ANKLE 2 VIEWS [place] PROC G0238 [facility] IMPRV [facility] RESP INC INC FUNCT NOT G0237 FCE-F[place] 15[place] [address] JESSICA LOPEZ DISTAL 4 [facility] FIBULAR INC INC FRACTURE LAT MALLEOLUS SUSCEPTIB 63227 JESSICA [facility] LTY STDY 4 [facility] ANTIMICRB INC INC IAL MICRO/AGA R DILUTJ ANCHOR/SC C1713 JESS[facility] REW [facility] OPPOSING INC INC BN-TO-BN/ SOFT TISSUE-TO -BN URNLS DIP 67248 [facility] STICK/TAB INC INC LET REAGENT AUTO MICROSCOP Y GLUC BLD 22597 JESSICA LOPEZ GLUC MNTR 4 [facility] DEV INC INC CLEARED FDA SPEC HOME USE ECG 91643 JESSICA [facility] ROUTINE 4 [facility] ECG INC INC W/LEAST 12 LDS TRCG ONLY W/O I&R RADEX 13936 [facility] L[facility] ANKLE [facility] COMPLETE INC INC MINIMUM 3 VIEWS RADIOLOGI 29362 JESSICA LOPEZ C EXAM 4 [facility] CHEST 2 INC INC VIEWS FRONTAL&L ATERAL RADEX 48498 JESS[facility] ANKLE 4 [facility] COMPLETE INC INC MINIMUM 3 VIEWS CLOSURE 86.59 Leanne MANZANO & Hawa COPEL[facility] SUBCUTANE OUS NEC Encounters Encounter Start End Date Code Location Performer Type Date OFFICE 52772 [facility] 25 MINUTES OFFICE 28628 [facility] 5 5 VALLEY JYOTI T VISIT INTERNAL 15 MED MINUTES OFFICE 34801 [facility] LUIS OUTPATIEN 5 5 PHYSICIAN RAMONE T VISIT S GROUP 15 MINUTES HOSPITAL [facility] - 5 5 [facility] OUT[facility] INC T OFFICE 80860 [facility] PETTEY OUTPATIEN 5 5 PHYSICIAN JAM T VISIT S GROUP 25 MINUTES [facility]OSPITAL [facility] - 5 5 [facility] OUTPAT[facility]EN [facility] OFFICE 69979 [facility] SMITH OUTPATIEN 5 5 PHYSICIAN RAMONE T NEW 45 S GROUP MINUT[facility] OFFICE 51413 [facility] 5 5 [facility]IS[facility] INTERNAL 15 MED MINUTES [facility] - 5 5 [facility] OUT[facility] OFFICE 82971 [facility] 5 5 [facility] VISIT INTERNAL 25 MED MINUTES HOSPITAL JESSICA [facility] 5 5 [facility] OUTPATIEN INC OFFICE 33707 JESSICA HOWARD OUTPATIEN 5 5 [facility] HOSP[facility] 15 MINUTES HOSPITAL JESSICA - 5 5 [facility] OUTPATIEN INC EMERGENCY 45267 [facility]ESSICA 5 5 [facility] T VISIT MODERATE SEVERITY HOSPITAL JESSICA - 5 5 [facility] JESSICA - 4 4 [facility] - 4 4 [facility] JESSICA [facility] 4 4 [facility] - [address] [facility] EMERGENCY 58732 JESSICA 4 4 [facility] T VISIT HIGH/URGE NT SEVERITY HOSPITAL JESSICA - 4 4 [facility] OUTPATIEN INC [facility] 4 4 [facility] JESSICA - 4 4 [facility] T H[facility]PITAL JESSICA - William 4 [facility] Emergency VALERY Shaikh MD (ER) 3 20:50 3 21:50 [facility] Emergency VALERY Flowers MD (ER) 3 11:31 3 12:38 [facility] Emergency VALERY Shaikh MD (ER) 3 19:20 3 20:31 [facility] Inpatient OPAL Blanca (IN) 3 12:50 3 14:20 [facility] Inpatient OPAL Breaux MD (IN) 3 23:10 3 10:45 [facility]
--- OUTSIDE RECORDS SUMMARY | 2017-01-25 14:25 | External Medical Summary Rpt | CCD ---
Author Author , DWIGHT Organization DWIGHT Address Unknown Phone [email or web address] Care Team Providers Care Real Estate Salesperson Name Role Phone BEINEKE HANNY, BEINEKE Unavailable Unavailable HANNY BESSON JYOTI, BESSON Unavailable Unavailable JYOTI SUSANNAH VAMSI, Unavailable Unavailable SUSANNAH VAM[facility] Unavailable Unavailable [facility]ENCY ON, [facility] Unavailable Unavailable [facility]ENCY ON, [facility] ELIUD DOMENIC, Unavailable Unavailable ELIUD DOMENIC [facility] Unavailable Unavailable [facility], [facility] Unavailable Unavailable [facility], [facility] FRYMAN EUG, FRYMAN Unavailable Unavailable EUG [facility] Unavailable Unavailable INC, [facility] Unavailable Unavailable HOSPITAL P, [facility] H[facility]PITAL P [facility], Unavailable Unavailable [facility] Un[facility], [facility] Unavailable Unavailable IMAGING [facility], [facility] SMITH RAMONE, SMITH Unavailable Unavailable RAMONE RUFINO JR DWI, RUFINO Unavailable Unavailable JR DWI [facility] Unavailable Unavailable INTERNAL MED, [facility], Unavailable Unavailable [facility] Unavailable Unavailable [facility] Leanne Shaikh MD, Unavailable Unavailable Leanne Shaikh MD [facility] Unavailable Unavailable MEDICAL, [facility] MEDICAL PETTEY JAM, PETTEY Unavailable Unavailable JAM [facility] Unavailable Unavailable SERVICES, [facility], Unavailable Unavailable [facility] Eduin Blanca MD, Unavailable Unavailable Eduin Blanca MD Purpose Continuity of Care Document - 05-28-2012 through 2016 Problems Code Diagnosis DOS Provider Status J449 CHRONIC 02-24-2015 [facility], OBSTRUCTIVE INC PULMONARY DISEASE UNS E119 TYPE 2 02-15-2015 DIABETIC DIABETES EXPERTS OF MELLITUS [facility] WITHOUT COMPLICATIO NS [id number] DERMATOCHAL 01-31-2015 [place] [facility] EYE UNS INSTITUTE EYELID Z961 PRESENCE OF 01-31-2015 [facility] LENS J0100 ACUTE 01-28-2015 [facility] SINUSITIS INTERNAL UNSPECIFIED MED M722 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 [facility] FASCIAL [facility] FIBROMATOSI INTERNAL S MED I10 ESSENTIAL 01-20-2015 [place] [facility] HYPERTENSIO AGENCY ON N 4280 CONGESTIVE 12-29-2014 [place] [facility] FAILURE AGENCY ON UNSPECIFIED 428 HEART 12-28-2014 [place] FAILURE TRACE [facility] AGENCY ON 496 CHRONIC 12-25-2014 [facility], AIRWAY INC OBSTRUCTION NEC 52789 ACUTE 12-16-2014 [facility], PHYSICIANS WITHOUT GROUP MENTION OF OBSTRUCTIO 56725 UNSPEC 11-30-2014 [facility] BURSAE&TEND INC ONS SHOULDER REGION 7262 OTHER 11-30-2014 [facility] AFFECTIONS [facility] OF SHOULDER INC REGION NEC V571 OTHER 11-30-2014 [facility] THERAPY INC 7273 OTHER 11-26-2014 [facility] BURSITIS PHYSICIANS DISORDERS GROUP 61977 PAIN IN 11-18-2014 [place] [facility], MEDICAL SHOULDER IMAGING ASS REGION 16293 DIAB W/O 11-17-2014 DIABETIC COMP TYPE EXPERTS OF II/UNS NOT [facility] STATED UNCNTRL 81537 HYPERTENSIV 11-14-2014 [facility] DISEASE [facility] UNSPEC W/HEART FAIL 44034 OBST 11-14-2014 [facility] BRONCHITIS [facility] P W/ACUTE BRONCHITIS 5939 UNSPECIFIED 11-14-2014 [facility] P AND URETER 53415 CHEST PAIN 11-14-2014 [place] [facility]NSPECIFIED [facility] 250 DIABETES 11-04-2014 [place] [facility] AGENCY ON 4760 CHRONIC 10-30-2014 [facility]ARYNG[facility] PHYSICIANS GROUP 9098 POLYP OF 10-30-2014 [facility] VOCAL CORD PHYSICIANS OR LARYNX GROUP 3224 UNSPECIFIED 10-30-2014 [facility] DISORDER PHYSICIANS OF GROUP SKIN&SUBCUT ANEOUS TISSUE 3572 POLYNEUROPA 09-28-2014 [facility] THY IN [facility] DIABETES INTERNAL MED 89672 ASTHMA, 09-28-2014 [facility] UNSPECIFIED VALLEY , INTERNAL UNSPECIFIED MED STATUS V7612 OTHER 07-20-2014 [facility] MAMMOGRAM MEDICAL 7862 COUGH 07-09-2014 [facility] 3384 CHRONIC 07-07-2014 [facility] PAIN [facility]LEY SYNDROME INTERNAL MED 93932 DYSPHONIA 07-07-2014 [facility] INTERNAL MED 7906 OTHER 07-07-2014 [facility] ABNORMAL [facility] BLOOD INC CHEMISTRY 63895 GOUTY 06-03-2014 [facility]THROPATHY [facility] INC UNSPECIFIED 4019 UNSPECIFIED 06-03-2014 [facility] ESSENTIAL [facility] HYPERTENSIO INC N 40225 PAIN IN 06-03-2014 [place] [facility], MEDICAL FOREARM IMAGING ASS V1582 PERS HX 06-03-2014 [facility] TOBACCO USE [facility] PRESENTING INC [facility] 59993 SOLITARY 05-05-2014 [facility] PULMONARY [facility] NODULE INC V5878 AFTERCARE 04-01-2014 [facility] FOLLOW [facility] SURGERY INC MUSCULOSKEL SYSTEM NEC V5416 AFTERCARE 03-10-2014 [facility] HEALING [facility] TRAUMATIC INC FRACTURE LOWER LEG 2724 OTHER AND 03-02-2014 [facility] HYPERLIPIDE POLLY 3569 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 [facility] OPATHIC PERIPHERAL NEUROPATHY 38961 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 19200 ESOPHAGEAL 03-02-2014 [facility] 36678 DEHYDRATION 02-19-2014 [facility] 4589 UNSPECIFIED 02-19-2014 [facility] HYPOTENSION INC 7802 SYNCOPE AND 02-19-2014 [facility] COLLAPSE [facility] INC 26601 SHORTNESS 02-19-2014 [facility] OF BREATH [facility] INC V1090 PERSONAL 02-19-2014 [facility] HISTORY [facility] UNSPECIFIED INC MALIGNANT NEOPLASM V1254 PERSONAL HX 02-19-2014 [facility] TIA & CI [facility] W/O INC RESIDUAL DEFICITS 18762 MORBID 02-16-2014 [facility] OBESITY [facility] INC 5990 URINARY 02-16-2014 [facility] TRACT [facility] INFECTION INC SITE NOT SPECIFIED 42168 MALUNION OF 02-16-2014 [facility] FRACTURE [facility] INC 8248 UNSPECIFIED 02-16-2014 [facility] CLOSED [facility] FRACTURE OF INC ANKLE V1581 PERS HX 02-16-2014 [facility] NONCOMPLIAN [facility] CE W/MED TX INC PRS HAZARDS HLTH V8541 BODY MASS 02-16-2014 [facility] INDEX [facility] 40.0-44.9 INC ADULT 276.8 Hypokalemia [facility] 416.9 Cor [facility] [id number] Gastritis [facility] [id number] Pulmonary [facility] [id number] Chronic [facility] Allergies, Adverse Reactions, Alerts Type Drug Allergy [...] RO 07 -0 SE 90 6- Lo PR 07 20 ng DE 32 13 er [...] 5 ti MG ve TA BL ET PR 11 05 1 No RA 52 -0 [...] er -A 2 CE Ac TA ti PR ve NO PH EN 5- 32 5 Ma 00 05 2 No g- 16 -0 Ox 50 5- Lo 02 20 ng 40 21 13 er 0M 0 G Ac Ta ti b ve ME 51 05 2 No TF 07 -0 OR 90 5- Lo PR 17 20 ng N 22 13 er [...] 1 Ac TA ti BL ve ET SD 00 02 2 No OM 64 -1 [...] RO 40 -1 SE 96 4- Lo PR 10 20 ng DE 20 13 er [...] TF 07 -1 OR 90 4- Lo PR 17 20 ng N 22 13 er [...] er -A 2 CE Ac TA ti PR ve NO PH EN 5- 32 5 [...] 0M ti G ve Ta bl et SD 00 02 3 No OT 00 -1 [...] complet ACID 013 mg/dL ed 11:30 Glucose [facility] (08-[facility] 11:55) Glucose 166 70-110 complet BldC 013 mg/dl ed Glucomt 11:55 [facility] (08-19-2012 06:34) Glucose 103 70-110 complet BldC 013 mg/dl ed Glucomt 06:34 [facility] COMPREHENSIVE METABOLIC PANEL (08-19-2012 06:05) [...] K/MM3 ed Bld 06:05 Auto Glucose BldC [facility] (08-18-2012 20:33) Glucose 05-06-2 150 70-110 complet BldC 013 mg/dl ed Glucomt 20:33 r-nc Glucose BldC [facility] (08-18-2012 17:05) Glucose 05-06-2 162 70-110 complet BldC 013 mg/dl ed Glucomt 17:05 r-[facility] Glucose BldC [facility] (08-18-2012 11:49) Glucose 05-06-2 130 70-110 complet [...] #/hpf ed S CELLS 11:38 Glucose dC [facility] (08-18-2012 06:37) Glucose 108 70-110 complet BldC 013 mg/dl ed Glucomt 06:37 r-[facility] Glucose dC [facility] (08-17-2012 21:07) Glucose 176 70-110 complet BldC 013 mg/dl ed Glucomt 21:07 r-[facility] COMPREHENSIVE METABOLIC PANEL (08-17-2012 12:45) Glucose 164 [...] K/MM3 ed Bld 12:45 Auto Glucose dC [facility] (06-01-2012 06:56) Glucose 101 70-110 complet BldC 013 mg/dl ed Glucomt 06:56 r-[facility] Glucose BldC [facility] (05-31-2012 20:27) Glucose 161 70-110 complet BldC 013 mg/dl ed Glucomt 20:27 [facility] Glucose BldC [facility] (05-31-2012 16:53) Glucose 115 70-110 complet BldC [...] 1 ed SerPl-m 12:22 Cnc Glucose dC [facility] (05-31-2012 11:57) Glucose 175 70-110 complet BldC 013 mg/dl ed Glucomt 11:57 r-[facility] Glucose BldC [facility] (05-31-2012 09:35) Glucose 105 70-110 complet BldC 013 mg/dl ed Glucomt 09:35 r-[facility] Glucose BldC [facility] (05-31-2012 07:47) Glucose 170 70-110 complet BldC 013 mg/dl ed Glucomt 07:47 r-nc Glucose BldC [facility] (05-31-2012 06:22) Glucose 89 70-110 complet BldC 013 mg/dl ed Glucomt 06:22 r-[facility] Glucose BldC [facility] (05-30-2012 21:31) Glucose 163 70-110 complet BldC 013 mg/dl ed Glucomt 21:31 r-nc Glucose BldC [facility] (05-30-2012 16:38) Glucose 05-30-2 150 70-110 complet BldC 013 mg/dl ed Glucomt 16:38 r-nc Glucose BldC [facility] (05-30-2012 11:35) Glucose 05-30-2 104 70-110 complet BldC 013 mg/dl ed Glucomt 11:35 r-nc Glucose BldC [facility] (05-30-2012 06:33) Glucose 05-30-2 109 70-110 complet BldC 013 mg/dl ed Glucomt 06:33 r-[facility] BASIC METABOLIC PANEL (05-30-2012 06:32) Glucose 105 [...] T STRIPS OF OF HOME BLD [facility] KLAPESH GLU MON-50 NORMAL A4256 DIABETIC DIABETIC LOW [...] RX; PER 30 DAYS MISC TX T1999 [facility] ITEMS & 5 TRACE TRACE [facility] AREA AREA RETAIL AGENCY ON AGENCY ON PURCHASE NOC HOME CARE S5108 [facility] TRAINING 5 TRACE TRACE HOME AREA AREA CARE AGENCY ON AGENCY ON CLIENT PER 15 MIN PRTBLE E0431 KAYA KIRKPATRICK, GASEOUS 5 INC INC O2 SYS RENT; FLWMTR HUMIDFR&M ASK O2 CONC 1 E1390 KAYA KIRKPATRICK, DEL PORT 5 INC INC 85%/>02 CONC AT PRS FLW RATE HOME CARE S5108 [facility] TRAINING 5 TRACE TRACE HOME AREA AREA CARE AGENCY ON AGENCY ON CLIENT PER 15 MIN MISC TX T1999 [facility] ITEMS & 5 TRACE TRACE SPL AREA AREA RETAIL AGENCY ON AGENCY ON PURCHASE NOC THERAPEUT 36220 JESSICA LOPEZ IC PX 1/> 5 [facility] AREAS INC INC EACH 15 MIN EXERCISES PHYSICAL 76166 JESSICA LOPEZ THERAPY 5 [facility] EVALUATIO INC INC N HOME CARE S5108 [facility] TRAINING 5 TRACE TRACE HOME AREA AREA CARE AGENCY ON AGENCY ON CLIENT PER 15 MIN PRTBLE E0431 [facility], [facility] EMERGENCY DEPARTMENT, GASEOUS 5 INC INC O2 SYS RENT; FLWMTR HUMIDFR&M ASK O2 CONC 1 E1390 [facility], [place] 5 INC INC 85%/>02 CONC AT [facility] FLW RATE ALBUTEROL J7620 RELIANT RELIANT TO 2.5 5 PHARMACY PHARMACY MG & SERVICES SERVICES IPRATROPI UM BROM TO 0.5 MG PHRM Q0513 RELIANT RELIANT DISPENSIN 5 PHARMACY PHARMACY G FEE SERVICES SERVICES INHALATIO N RX; PER 30 DAYS RADEX 06703 JESSICA LOPEZ SHOULDER 5 [facility] COMPLETE INC INC MINIMUM 2 VIEWS [...] EXPERTS T STRIPS OF OF HOME BLD KLAPESH [facility] GLU MON-50 MISC TX T1999 [facility] ITEMS & 5 TRACE TRACE SPL AREA AREA RETAIL AGENCY ON AGENCY ON PURCHASE NOC HOME CARE S5108 [facility] TRAINING 5 TRACE TRACE HOME AREA AREA CARE AGENCY ON AGENCY ON CLIENT PER 15 MIN ECG 35097 JESSICA JOY JR ROUTINE [address] [facility] W/LEAST P 12 LDS I&R ONLY RADIOLOGI 88399 [facility] C EXAM 5 MEDICAL HANNY CHEST 2 IMAGING VIEWS ASS FRONTAL&L ATERAL HOME CARE S5108 [facility] 5 TRACE TRACE HOME AREA AREA CARE AGENCY ON AGENCY ON CLIENT PER 15 MIN PHRM Q0513 RELIANT RELIANT DISPENSIN 5 PHARMACY PHARMACY G FEE SERVICES SERVICES INHALATIO N RX; PER 30 DAYS ALBUTEROL J7620 RELIANT RELIANT TO 2.5 5 PHARMACY PHARMACY MG & SERVICES SERVICES IPRATROPI UM BROM TO 0.5 MG ADMN SET A7005 [facility], W/SM VOL 5 INC INC NONFILTR NEBULIZR NON-DISPB L O2 CONC 1 E1390 [facility], DEL PORT 5 INC INC 85%/>02 CONC AT PRSC FLW RATE PRTBLE E0431 [facility], GASEOUS 5 INC INC O2 SYS RENT; FLWMTR HUMIDFR&M ASK HOME CARE S5108 [facility] 5 TRACE TRACE HOME AREA AREA CARE AGENCY ON AGENCY ON CLIENT PER 15 MIN MISC TX T1999 [facility] ITEMS & 5 TRACE TRACE SPL AREA AREA RETAIL AGENCY ON AGENCY ON PURCHASE NOC HOME CARE S5108 [facility] 5 TRACE TRACE HOME AREA AREA CARE AGENCY ON AGENCY ON CLIENT PER 15 MIN PRTBLE E0431 [facility], GASEOUS 5 INC INC O2 SYS RENT; FLWMTR HUMIDFR&M ASK O2 CONC 1 E1390 [facility], DEL PORT 5 INC INC 85%/>02 CONC AT PRSC FLW RATE PHRM Q0513 RELIANT RELIANT DISPENSIN 5 PHARMACY PHARMACY G FEE SERVICES SERVICES INHALATIO N RX; PER 30 DAYS ALBUTEROL J7620 RELIANT RELIANT TO 2.5 5 PHARMACY PHARMACY MG & SERVICES SERVICES IPRATROPI UM BROM TO 0.5 MG HOME CARE S5108 [facility] 5 TRACE TRACE HOME AREA AREA CARE AGENCY ON AGENCY ON CLIENT PER 15 MIN MISC TX T1999 [facility] ITEMS & 5 TRACE TRACE SPL AREA AREA RETAIL AGENCY ON AGENCY ON PURCHASE NOC MISC TX T1999 [facility] ITEMS & 5 TRACE TRACE SPL AREA AREA RETAIL AGENCY ON AGENCY ON PURCHASE NOC HOME CARE S5108 [facility] TRAINING 5 TRACE TRACE HOME AREA AREA CARE AGENCY ON AGENCY ON CLIENT PER 15 MIN PRTBLE E0431 [facility] EMERGENCY DEPARTMENT, [facility] EMERGENCY DEPARTMENT, GASEOUS 5 INC INC O2 SYS RENT; FLWMTR HUMIDFR&M ASK PHRM Q0513 RELIANT RELIANT DISPENSIN 5 PHARMACY PHARMACY G FEE SERVICES SERVICES INHALATIO N RX; PER 30 DAYS O2 CONC 1 E1390 [facility] EMERGENCY DEPARTMENT, [facility] EMERGENCY DEPART[facility], DEL PORT 5 INC INC 85%/>02 CONC AT [facility] FLW RATE ALBUTEROL J7620 RELIANT RELIANT TO 2.5 5 PHARMACY PHARMACY MG & SERVICES SERVICES IPRATROPI UM BROM TO 0.5 MG HOME CARE S5108 [facility] TRAINING 5 TRACE TRACE HOME AREA AREA CARE AGENCY ON AGENCY ON CLIENT PER 15 MIN HOME CARE S5108 [facility] TRAINING 5 TRACE TRACE HOME AREA AREA CARE AGENCY ON AGENCY ON CLIENT PER 15 MIN SCREENING G0202 MEAEMILIANO WOLFWLAKISHA 5 W W MAMMOGRAP REGIONAL REGIONAL HY NIESHA MEDICAL MEDICAL INCL CAD WHEN PERFORMD - 55743 MEADODUANE MEADOWVIE AIDED 5 W W DETECTION REGIONAL REGIONAL MEDICAL MEDICAL SCREENING MAMMOGRAP HY HOME CARE S5108 [facility] TRAINING 5 TRACE TRACE HOME AREA AREA CARE AGENCY ON AGENCY ON CLIENT PER 15 MIN RADIOLOGI 01151 JESSICA LOPEZ C EXAM 5 [facility] CHEST 2 INC INC VIEWS FRONTAL&L ATERAL COMPREHEN 64515 [facility] L[facility] SIVE 5 [facility] METABOLIC INC INC PANEL CYANOCOBA 73284 JESSICA LOPEZ MATT 5 [facility] VITAMIN INC INC B-12 LIPID 13363 J[facility]ICA LOPEZ PANEL 5 [facility] INC INC HEMOGLOBI 67304 J[facility]ICA LOPEZ N 5 [facility] GLYCOSYLA INC INC JULIANNE A1C BLOOD 77791 J[facility]ICA LOPEZ COUNT 5 [facility] COMPLETE INC INC AUTO&AUTO DIFRNTL WBC COLLECTIO 87334 JESSICA Curiel VENOUS 5 [facility] BLOOD INC INC VENIPUNCT URE MISC TX T1999 [facility] ITEMS & 5 TRACE TRACE SPL AREA AREA RETAIL AGENCY ON AGENCY ON PURCHASE NOC MISC TX T1999 [facility] ITEMS & 5 TRACE TRACE SPL AREA AREA RETAIL AGENCY ON AGENCY ON PURCHASE NOC HOME CARE S5108 [facility] TRAINING 5 TRACE TRACE HOME AREA AREA CARE AGENCY ON AGENCY ON CLIENT PER 15 MIN HOME CARE S5108 [facility] TRAINING 5 TRACE TRACE HOME AREA AREA CARE AGENCY ON AGENCY ON CLIENT PER 15 MIN RADIOLOGI 76733 KENDRA KLINE C EXAM 5 MEDICAL DOMENIC CHEST 2 IMAGING VIEWS ASS FRONTAL&L ATERAL APPLICATI 18415 JESSICA LOPEZ ON SHORT 5 [facility] ARM INC INC SPLINT FOREARM-H AND STATIC RADEX 01436 JESSICA LOPEZ WRIST 5 [facility] COMPLETE INC INC MINIMUM [address] THORAX 15813 JESSICA LOPEZ W/O 5 [facility] CONTRAST INC INC MATERIAL RADEX 62209 JESSICA LOPEZ ANKLE 4 [facility] COMPLETE INC INC MINIMUM 3 VIEWS RADEX 91633 JESSICA LOPEZ ANKLE 4 [facility] COMPLETE INC INC MINIMUM 3 VIEWS RADEX 48325 JESSICA LOPEZ ANKLE 4 [facility] COMPLETE INC INC MINIMUM 3 VIEWS BLOOD [address] PLATELET AUTOMATED CATH PLMT 99508 [facility] & [address] [place] [address] ARTS W/NJX & ANGIO IMG S&I CATHETER C[address] NAL ANGIOPLAS TY NON-LASER BLOOD [address] HEMATOCRI T CATHETER C[address] BASIC [address] PANEL CALCIUM IONIZED BLOOD 32181 JESSICA LOPEZ COUNT 4 [facility] COMPLETE INC INC AUTO&AUTO DIFRNTL WBC GLUC BLD 00212 JESSICA LOPEZ GLUC MNTR 4 [facility] DEV INC INC CLEARED FDA SPEC [facility] G0378 JESSICA L[facility]Z OBSERVATI 4 [facility] ON INC INC SERVICE PER HOUR BASIC 30073 J[facility] METABOLIC 4 [facility] PANEL INC INC CALCIUM TOTAL COLLECTIO 33577 [facility] L[facility] N VENOUS 4 [facility] BLOOD INC INC VENIPUNCT URE PRESSURIZ 43739 JESSICA LOPEZ ED/NONPRE 4 [facility] SSURIZED INC INC INHALATIO N TREATMENT NONINVASI 44604 [facility] LOPEZ VE 4 [facility] EAR/PULSE INC INC OXIMETRY SINGLE DETER NONINVASI 82415 [facility] L[facility]Z VE 4 [facility] EAR/PULSE [place] [address] JESSICA LOPEZ INFUSION 4 [facility] THERAPY/P INC INC ROPHYLAXI S /DX 1ST TO 1 HR PRESSURIZ 34264 JESSICA LOPEZ ED/NONPRE 4 [facility] SSURIZED INC INC INHALATIO N TREATMENT COMPREHEN 00925 [facility] SIVE 4 [facility] METABOLIC INC INC PANEL RADIOLOGI 06926 [facility] L[facility]Z C 4 [facility] EXAMINATI INC INC ON CHEST [facility] G0378 JESSICA L[facility]Z OBSERVATI 4 [facility] ON INC INC SERVICE PER HOUR ECG 20577 JESSICA L[facility]Z ROUTINE 4 [facility] ECG INC INC W/LEAST 12 LDS TRCG ONLY W/O I&R URNLS DIP 76352 J[facility]ICA [facility]Z 4 [facility] STICK/TAB INC INC LET REAGENT AUTO MICROSCOP Y GLUC BLD 34471 JESSICA LOPEZ GLUC MNTR 4 [facility] DEV INC INC CLEARED FDA SPEC HOME USE NATRIURET 21285 JESSICA LOPEZ IC 4 [facility] [place] [address] JESSICA LOPEZ TROPONIN 4 [facility] QUANTITAT INC INC MARINE BLOOD 04137 JESSICA LOPEZ COUNT 4 [facility] COMPLETE INC INC AUTO&[place] [address] JESSICA LOPEZ LIPASE 4 [facility] INC INC BLOOD 88059 JESSICA LOPEZ COUNT 4 [facility] COMPLETE INC INC AUTO&AUTO DIFRNTL WBC THERAPEUT 13309 JESSICA LOPEZ ACTVITY 4 [facility] DIRECT PT INC INC CONTACT EACH 15 MIN COLLECTIO 55249 JESSICA LOPEZ N VENOUS 4 [facility] BLOOD INC INC VENIPUNCT URE PHYSICAL 25562 JESSICA LOPEZ THERAPY 4 [facility] EVALUATIO INC INC N HOSPITAL G0378 J[facility] OBSERVATI 4 [facility] ON INC INC SERVICE PER HOUR BASIC 49939 JESSICA LOPEZ METABOLIC 4 [facility] PANEL INC INC CALCIUM TOTAL NONINVASI 54592 J[facility]ICA LOPEZ VE 4 [facility] EAR/PULSE INC INC OXIMETRY SINGLE DETER PRESSURIZ 78026 JESSICA LOPEZ ED/NONPRE 4 [facility] SSURIZED INC INC INHALATIO N TREATMENT PRESSURIZ 60253 JESSICA LOPEZ ED/NONPRE 4 [facility] SSURIZED INC INC INHALATIO N TREATMENT NONINVASI 54602 JESSICA LOPEZ VE 4 [facility] EAR/PULSE INC INC OXIMETRY SINGLE DETER THERAPEUT 76643 JESSICA LOPEZ IC 4 [facility] INJECTION [place] [address] JESSICA LOPEZ INFUSION 4 [facility] THERAPY/P INC INC ROPHYLAXI S /DX 1ST TO 1 HR FLUOROSCO 55463 JESSICA LOPEZ PY SPX UP 4 [facility] TO 1 INC INC HOUR PHYS/QHP TIME GUIDE C1769 [facility] WIRE 4 [facility] INC INC CULTURE 97600 JESSICA LOPE[facility] BACTERIAL 4 [facility] INC INC QUANTTATI VE COLONY COUNT URINE CULTURE 39856 JESSICA LOPEZ BCT 4 [facility] ISOL&PRSM INC INC PTV ID ISOLATE EA URINE HOSPITAL G0378 JESSICA LOPEZ OBSERVATI 4 [facility] ON INC INC SERVICE PER HOUR RADIOLOGI 37255 J[facility]ICA LOPEZ C 4 [facility] EXAMINATI INC INC ON ANKLE 2 VIEWS [place] PROC G0238 JESSICA L[facility] IMPRV 4 [facility] RESP INC INC FUNCT NOT G0237 FCE-F[place] 15[place] [address] JESS[facility] DISTAL [facility] FIBULAR [facility] INC FRACTURE LAT MALLEOLUS SUSCEPTIB 81471 JESSICA [facility] LTY STDY 4 [facility] ANTIMICRB INC INC IAL MICRO/AGA R DILUTJ ANCHOR/SC C1713 [facility] REW [facility] OPPOSING INC INC BN-TO-BN/ SOFT TISSUE-TO -BN URNLS DIP 54483 [facility] STICK/TAB INC INC LET REAGENT AUTO MICROSCOP Y GLUC BLD 88220 JESSICA [facility]OPEZ GLUC MNTR 4 [facility] DEV INC INC CLEARED FDA SPEC HOME USE ECG 44935 JESS[facility] ROUTINE 4 [facility] ECG INC INC W/LEAST 12 LDS TRCG ONLY W/O I&R RADEX 83545 [facility] ANKLE 4 [facility] COMPLETE INC INC MINIMUM 3 VIEWS RADIOLOGI 79796 JESSICA [facility] C EXAM 4 [facility] CHEST 2 INC INC VIEWS FRONTAL&L ATERAL RADEX 17904 [facility] ANKLE 4 [facility] COMPLETE INC INC MINIMUM 3 VIEWS CLOSURE 86.59 Leanne MANZANO & Hawa COPELAND SUBCUTANE OUS NEC Encounters Encounter Start End Date Code Location Performer Type Date OFFICE 67479 [facility] OUTPATIEN 5 5 [facility] 25 MINUTES OFFICE 79266 [facility] 5 5 [facility] JYOTI T VISIT INTERNAL 15 MED MINUTES OFFICE 42041 [facility] OUTPATIEN 5 5 PHYSICIAN RAMONE T VISIT S GROUP 15 MINUTES HOSP[facility] - 5 5 [facility] OUTPATIEN INC T OFFICE 70131 [facility] PETTEY OUTPATIEN 5 5 PHYSICIAN JAM T VISIT S GROUP 25 MINUTES HOSPITAL JESSICA - 5 5 [facility] OUTPATIEN [facility] OFFICE 06802 [facility] SMITH OUTPATIEN 5 5 PHYSICIAN RAMONE T NEW 45 S GROUP MINUTES OFFICE 21616 [facility] 5 5 [facility] T [facility]ISIT INTERNAL 15 MED MINUTES [facility] 5 5 [facility] OUT[facility] OFFICE 10965 [facility] OUT[facility] 5 5 [facility] VISIT INTERNAL 25 MED MINUTES HOSPITAL JESSICA [facility] 5 5 [facility] OUTPATIEN INC OFFICE 03408 JESSICA HOWARD OUTPATIEN 5 5 [facility] VISIT HOSPITAL 15 MINUTES HOSPITAL [facility]ESSICA [facility] 5 5 [facility] OUTPATIEN INC EMERGENCY 01891 JESSICA 5 5 [facility] T VISIT MODERATE [facility]VERITY HOSPITAL JESSICA - 5 5 [facility]PATIEN [facility] JESSICA - 4 4 [facility] INC [facility] JESSICA - 4 4 [facility] JESSICA [facility] 4 4 [facility] 4 4 [facility] T VISIT [facility]IGH/URGE [facility] 4 4 [facility] - William 4 [facility] OUTPATIEN [facility] Emergency VALERY Shaikh MD (ER) 3 20:50 3 21:50 [facility] Emergency VALERY Flowers MD (ER) 3 11:31 3 12:38 [facility] Emergency VALERY Shaikh MD (ER) 3 19:20 3 20:31 [facility] Inpatient OPAL Blanca (IN) 3 12:50 3 14:20 [facility] Inpatient OPAL Breaux MD (IN) 3 23:10 3 10:45 [facility]
--- OUTSIDE RECORDS SUMMARY | 2017-01-25 14:28 | External Medical Summary Rpt | CCD ---
Author Author , DWIGHT QUINTANILLA Address Unknown Phone [email or web address] Care Team Providers Care E Marketing Specialist Name Role Phone BOSTONJAMEELPAT HANNY, SIMONE Unavailable Unavailable HANNY KAM JYOTI, BESSON Unavailable Unavailable JYOTI SUSANNAH VAMSI, Unavailable Unavailable SUSANNAH VAMSI [facility] Unavailable Unavailable [facility]ENCY ON, [facility] Unavailable Unavailable [facility]Y ON, [facility] ELIUD DOMENIC, Unavailable Unavailable ELIUD DOMENIC [facility] Unavailable Unavailable [facility] [place] [facility] Unavailable Unavailable [facility], [facility] FRYMAN EUG, FRYMAN Unavailable Unavailable EUG HAGENSCHREYES CHLOE, Unavailable Unavailable HAGENSCHNEIDER CHLOE [facility] Unavailable Unavailable INC, [facility] Unavailable Unavailable HOSPITAL P, [facility] P [facility], Unavailable Unavailable [facility] Un[facility], [facility] Unavailable Unavailable [facility], [facility] SMITH RAMONE, SMITH Unavailable Unavailable RAMONE RUFINO STYLES DWI, RUFINO Unavailable Unavailable JR DWI [facility] Unavailable Unavailable INTERNAL MED, [facility] INTERNAL MED [facility], Unavailable Unavailable [facility], Unavailable [facility]available [facility] Unavailable [facility]available [facility] Unavailable Unavailable MEDICAL, [facility] MEDICAL PETTEY JAM, PETTEY Unavailable Unavailable JAM [facility] Unavailable Unavailable SERVICES, [facility], Unavailable Unavailable [facility] Purpose Continuity of Care Document - 02-04-2014 through 2016 Problems Code Diagnosis DOS Provider Status J449 CHRONIC 02-24-2015 [facility]AY[facility], OBSTRUCTIVE INC PULMONARY DISEASE UNS E119 TYPE 2 02-15-2015 DIABETIC DIABETES EXPERTS OF [facility] [place] WITHOUT COMPLICATIO NS F41985 DERMATOCHAL 01-31-2015 [place] [facility] EYE UNS INSTITUTE EYELID Z961 PRESENCE OF 01-31-2015 [facility] LENS J0100 ACUTE 01-28-2015 [facility] SINUSITIS INTERNAL UNSPECIFIED MED M722 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 [facility] FASCIAL [facility] FIBROMATOSI INTERNAL S MED I10 ESSENTIAL 01-20-2015 [facility] HYPERTENSIO AGENCY ON N 4280 CONGESTIVE 12-29-2014 [facility] FAILURE AGENCY ON UNSPECIFIED 428 HEART 12-28-2014 [place] FAILURE [facility]ACE [facility] AGENCY ON 496 CHRONIC 12-25-2014 [facility], AIRWAY INC OBSTRUCTION NEC 33162 ACUTE 12-16-2014 [facility] LARY[facility], PHYSICIANS WITHOUT GROUP MENTION OF OBSTRUCTIO 27347 UNSPEC 11-30-2014 [facility] DISORDERS [facility] BURSAE&TEND INC ONS SHOULDER REGION 7262 OTHER 11-30-2014 [facility] AFFECTIONS [facility] OF SHOULDER INC REGION NEC V571 OTHER 11-30-2014 [facility] PHYSICAL [facility] THERAPY INC 7273 OTHER 11-26-2014 [facility] BURSITIS PHYSICIANS DISORDERS GROUP 47432 PAIN IN 11-18-2014 [place] [facility]INT, MEDICAL SHOULDER IMAGING ASS REGION 48475 DIAB W/O 11-17-2014 DIABETIC COMP TYPE EXPERTS OF II/UNS NOT [place] STATED UNCNTRL 64955 HYPERTENSIV 11-14-2014 [facility] HEART [facility] DISEASE [facility] P UNSPEC W/HEART FAIL 18220 OBST 11-14-2014 [facility] BRONCHITIS [facility] P W/ACUTE BRONCHITIS 5939 UNSPECIFIED 11-14-2014 [facility] KIDNEY [facility] P AND URETER 11366 CHEST PAIN 11-14-2014 [facility] UNSPECIFIED [facility] 250 DIABETES 11-04-2014 [place] [facility] AGENCY ON 4760 CHRONIC 10-30-2014 [facility] LARYNGITIS PHYSICIANS GROUP 4784 POLYP OF 10-30-2014 [facility] VOCAL CORD PHYSICIANS OR LARYNX GROUP 7099 UNSPECIFIED 10-30-2014 [facility] DISORDER PHYSICIANS OF GROUP SKIN&SUBCUT ANEOUS TISSUE 3572 POLYNEUROPA 09-28-2014 [facility] THY IN VALLEY DIABETES INTERNAL MED 00438 ASTHMA, 09-28-2014 [facility] UNSPECIFIED VALLEY , INTERNAL UNSPECIFIED MED STATUS V7612 OTHER 07-20-2014 [facility]AL MAMMOGRAM MEDICAL 7862 COUGH 07-09-2014 [facility] 3384 CHRONIC 07-07-2014 [facility] PAIN VALLEY SYNDROME INTERNAL MED 94765 DYSPHONIA 07-07-2014 [facility] INTERNAL MED 7906 OTHER 07-07-2014 [facility] ABNORMAL [facility] BLOOD INC CHEMISTRY 76008 GOUTY 06-03-2014 [facility] ARTHROPATHY [facility] INC UNSPECIFIED 4019 UNSPECIFIED 06-03-2014 [facility] ESSENTIAL [facility] HYPERTENSIO INC N 34512 PAIN IN 06-03-2014 [place] [facility], MEDICAL FOREARM IMAGING ASS V1582 PERS HX 06-03-2014 [facility] TOBACCO USE [facility] PRESENTING INC [facility] 05735 SOLITARY 05-05-2014 [facility] PULMONARY [facility] NODULE INC V5878 AFTERCARE 04-01-2014 [facility] FOLLOW [facility] SURGERY INC MUSCULOSKEL SYSTEM NEC V5416 AFTERCARE 03-10-2014 [facility] HEALING [facility] TRAUMATIC INC FRACTURE LOWER LEG 2724 OTHER AND 03-02-2014 [facility] HYPERLIPIDE POLLY 3569 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 [facility] OPATHI PERIPHERAL NEUROPATHY 67542 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 [facility] [place] CORONARY ARTERY 41966 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 [facility] 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 58959 ESOPHAGEAL 03-02-2014 [facility] HOSPITAL 76604 DEHYDRATION 02-19-2014 [facility] INC 4589 UNSPECIFIED 02-19-2014 [facility] HYPOTENSION INC 7802 SYNCOPE AND 02-19-2014 [facility] COLLAPSE [facility] INC 42861 SHORTNESS 02-19-2014 [facility] OF BREATH [facility] INC V1090 PERSONAL 02-19-2014 [facility] HISTORY [facility] UNSPECIFIED INC MALIGNANT NEOPLASM V1254 PERSONAL HX 02-19-2014 [facility] TIA & CI [facility] W/O INC RESIDUAL DEFICITS 53966 MORBID 02-16-2014 [facility] OBESITY [facility] INC 5990 URINARY 02-16-2014 [facility] TRACT [facility] INFECTION INC SITE NOT SPECIFIED 82213 MALUNION OF 02-16-2014 [facility] FRACTURE [facility] INC 8248 UNSPECIFIED 02-16-2014 [facility] CLOSED [facility] FRACTURE OF INC ANKLE V1581 PERS HX 02-16-2014 [facility] NONCOMPLIAN [facility] CE W/MED TX INC PRS HAZARDS HLTH V8541 BODY MASS 02-16-2014 [facility] INDEX [facility] 40.0-44.9 INC ADULT Procedures Procedure DOS Code Location Performer Comment O2 CONC 1 E1390 KAYA KIRKPATRICK, DEL PORT 5 INC INC 85%/>[address] [facility] FLW RATE PRTBLE E0431 KAYA KIRKPATRICK, GASEOUS 5 INC INC O2 SYS RENT; FLWMTR HUMIDFR&M ASK BLD GLU A4253 DIABETIC DIABETIC TEST/REAG 5 EXPERTS EXPERTS T STRIPS OF OF HOME BLD KLAPESH [place] GLU MON-50 NORMAL A4256 DIABETIC DIABETIC LOW AND 5 EXPERTS EXPERTS HIGH OF OF [place] R SOLUTION/ CHIPS LANCETS A4259 DIABETIC DIABETIC PER BOX 5 EXPERTS EXPERTS OF 100 OF OF [place] REPL PATRICIO A4233 DIABETIC DIABETIC ALKALINE 5 EXPERTS EXPERTS NOT J OF OF CELL EVELIN [facility] BG MON OWND PT ALBUTEROL J7620 RELIANT RELIANT TO 2.5 5 PHARMACY PHARMACY MG & SERVICES SERVICES IPRATROPI UM BROM TO 0.5 MG ADMN SET A7003 KAYA KIRKPATRICK, VOL 5 INC INC NONFILTR PNEUMAT NEBULIZR DISPBL PHRM Q0513 RELIANT RELIANT DISPENSIN 5 PHARMACY PHARMACY G FEE SERVICES SERVICES INHALATIO N RX; PER 30 DAYS PRTBLE E0431 [facility] GASEOUS 5 INC INC O2 SYS RENT; FLWMTR HUMIDFR&M ASK O2 CONC 1 E1390 [facility], DEL PORT 5 INC INC 85%/>02 CONC AT [facility] FLW RATE PHRM Q0513 RELIANT RELIANT DISPENSIN 5 PHARMACY PHARMACY G FEE SERVICES SERVICES INHALATIO N RX; PER 30 DAYS ALBUTEROL J7620 RELIANT RELIANT TO 2.5 5 PHARMACY PHARMACY MG & SERVICES SERVICES IPRATROPI UM BROM TO 0.5 MG MISC [place] T1999 [facility] ITEMS & 5 TRACE TRACE SPL AREA AREA RETAIL AGENCY ON AGENCY ON PURCHASE NOC HOME CARE S5108 [facility] TRAINING 5 TRACE TRACE HOME AREA AREA CARE AGENCY ON AGENCY ON CLIENT PER 15 MIN PRTBLE E0431 [facility], GASEOUS 5 INC INC O2 SYS RENT; FLWMTR HUMIDFR&M ASK O2 CONC 1 E1390 [facility], DEL PORT 5 INC INC 85%/>02 CONC AT [facility] FLW RATE HOME CARE S5108 [facility] TRAINING 5 TRACE TRACE HOME AREA AREA CARE AGENCY ON AGENCY ON CLIENT PER 15 MIN [facility] T1999 [facility] ITEMS & 5 TRACE TRACE SPL AREA AREA RETAIL AGENCY ON AGENCY ON PURCHASE NOC PHYSICAL 75801 [facility] LOPEZ THERAPY 5 [facility] EVALUATIO INC INC N THERAPEUT 83277 JESSICA LOPEZ IC PX 1/> 5 [facility] AREAS INC INC EACH 15 MIN EXERCISES HOME CARE S5108 [facility] TRAINING 5 TRACE TRACE HOME AREA AREA CARE AGENCY ON AGENCY ON CLIENT PER 15 MIN O2 CONC 1 E1390 [facility], DEL PORT 5 INC INC 85%/>[address] [facility] FLW RATE PRTBLE E0431 [facility], GASEOUS 5 INC INC O2 SYS RENT; FLWMTR HUMIDFR&M ASK PHRM Q0513 RELIANT RELIANT DISPENSIN 5 PHARMACY PHARMACY G FEE SERVICES SERVICES INHALATIO N RX; PER 30 DAYS ALBUTEROL J7620 RELIANT RELIANT TO 2.5 5 PHARMACY PHARMACY MG & SERVICES SERVICES IPRATROPI UM BROM TO 0.5 MG RADEX 70008 JESSICA BEVERLYON SHOULDER 5 [facility] COMPLETE INC INC MINIMUM 2 VIEWS SPRING- A4258 DIABETIC DIABETIC WERED 5 EXPERTS EXPERTS DEVICE OF OF FOR [place] LANCET EACH BLD GLU A4253 DIABETIC DIABETIC TEST/REAG 5 EXPERTS EXPERTS T STRIPS OF OF HOME BLD [place] GLU MON-50 LANCETS A4259 DIABETIC DIABETIC PER BOX 5 EXPERTS EXPERTS OF 100 OF OF [place] NORMAL A4256 DIABETIC DIABETIC LOW AND 5 EXPERTS EXPERTS HIGH OF OF [place] [facility] R SOLUTION/ CH[facility] T1999 [facility] ITEMS & 5 TRACE TRACE SPL AREA AREA RETAIL AGENCY ON AGENCY ON PURCHASE NOC HOME CARE S5108 [facility] TRAINING 5 TRACE TRACE HOME AREA AREA CARE AGENCY ON AGENCY ON CLIENT PER 15 MIN ECG 69123 J[facility] JOY JR ROUTINE 5 [facility] W/LEAST P 12 LDS I&R ONLY RADIOLOGI 13610 KENDRA NICHOLS C EXAM 5 MEDICAL HANNY CHEST 2 IMAGING VIEWS ASS FRONTAL&L ATERAL HOME CARE S5108 [facility] 5 TRACE TRACE HOME AREA AREA CARE AGENCY ON AGENCY ON CLIENT PER 15 MIN ADMN SET A7005 LINDSEY KIRKPATRICKESPERANZA, W/SM VOL 5 INC INC NONFILTR NEBULIZR NON-DISPB L PHRM Q0513 RELIANT RELIANT DISPENSIN 5 PHARMACY PHARMACY G FEE SERVICES SERVICES INHALATIO N RX; PER 30 DAYS ALBUTEROL J7620 RELIANT RELIANT TO 2.5 5 PHARMACY PHARMACY MG & SERVICES SERVICES IPRATROPI UM BROM TO 0.5 MG PRTBLE E0431 [facility], GASEOUS 5 INC INC O2 SYS RENT; FLWMTR HUMIDFR&M ASK O2 CONC 1 E1390 [facility], DEL PORT 5 INC INC 85%/>02 CONC AT [facility] FLW RATE HOME CARE S5108 [facility] 5 TRACE TRACE HOME AREA AREA CARE AGENCY ON AGENCY ON CLIENT PER 15 MIN MISC TX T1999 [facility] ITEMS & 5 TRACE TRACE SPL AREA AREA RETAIL AGENCY ON AGENCY ON PURCHASE NOC HOME CARE S5108 [facility] 5 TRACE TRACE HOME AREA AREA CARE AGENCY ON AGENCY ON CLIENT PER 15 MIN O2 CONC 1 E1390 [facility], DEL PORT 5 INC INC 85%/>02 CONC AT [facility] FLW RATE PRTBLE E0431 [facility], GASEOUS 5 INC INC O2 SYS RENT; FLWMTR HUMIDFR&M ASK PHRM Q0513 RELIANT RELIANT DISPENSIN 5 PHARMACY PHARMACY G FEE SERVICES SERVICES INHALATIO N RX; PER 30 DAYS ALBUTEROL J7620 RELIANT RELIANT TO 2.5 5 PHARMACY PHARMACY MG & SERVICES SERVICES IPRATROPI UM BROM TO 0.5 MG HOME CARE S5108 [facility] 5 TRACE TRACE HOME AREA AREA CARE AGENCY ON AGENCY ON CLIENT PER 15 MIN MISC [place] T1999 [facility] ITEMS & 5 TRACE TRACE SPL AREA AREA RETAIL AGENCY ON AGENCY ON PURCHASE NOC MISC TX T1999 [facility] ITEMS & 5 TRACE TRACE SPL AREA AREA RETAIL AGENCY ON AGENCY ON PURCHASE NOC HOME CARE S5108 [facility] TRAINING 5 TRACE TRACE HOME AREA AREA CARE AGENCY ON AGENCY ON CLIENT PER 15 MIN O2 CONC 1 E1390 LINDSEYESPERANZA, LINDSEYESPERANZA, DEL PORT 5 INC INC 85%/>02 CONC AT [facility] FLW RATE PHRM Q0513 RELIANT RELIANT DISPENSIN 5 PHARMACY PHARMACY G FEE SERVICES SERVICES INHALATIO N RX; PER 30 DAYS PRTBLE E0431 KAYA, KAYA, GASEOUS 5 INC INC O2 SYS RENT; FLWMTR HUMIDFR&M ASK ALBUTEROL J7620 RELIANT RELIANT TO 2.5 5 PHARMACY PHARMACY MG & SERVICES SERVICES IPRATROPI UM BROM TO 0.5 MG HOME CARE S5108 [facility] TRAINING 5 TRACE TRACE HOME AREA AREA CARE AGENCY ON AGENCY ON CLIENT PER 15 MIN HOME CARE S5108 [facility] TRAINING 5 TRACE TRACE HOME AREA AREA CARE AGENCY ON AGENCY ON CLIENT PER 15 MIN COMPUTER- 69927 [facility] AIDED 5 DETECTION RADIOLOGY RADIOLOGY ASSOCIAT ASSOCIAT SCREENING MAMMOGRAP HY SCREENING G0202 [facility] 5 EIDER CHLOE MAMMOGRAP RADIOLOGY HY NIESHA ASSOCIAT INCL CAD WHEN PERFORMD HOME CARE S5108 [facility] TRAINING 5 TRACE TRACE HOME AREA AREA CARE AGENCY ON AGENCY ON CLIENT PER 15 MIN RADIOLOGI 50677 [place] ELI[facility] C EXAM 5 MEDICAL DOMENIC CHEST 2 IMAGING VIEWS ASS FRONTAL&L ATERAL COLLECTIO 95499 [facility] LOPEZ N VENOUS 5 [facility] BLOOD INC INC VENIPUNCT URE HEMOGLOBI 12318 J[facility]ICA LOPEZ N 5 [facility] GLYCOSYLA INC INC JULIANNE A1C CYANOCOBA 78394 J[facility]ICA LOPEZ MATT 5 [facility] VITAMIN INC INC B-12 COMPREHEN 18099 [facility] SIVE 5 [facility] METABOLIC INC INC PANEL BLOOD 51354 J[facility]ICA LOPEZ COUNT 5 [facility] COMPLETE INC INC AUTO&AUTO DIFRNTL WBC LIPID 51925 JESSICA LOPEZ PANEL 5 [facility]OS[facility] INC INC MISC [place] T1999 [facility] ITEMS & 5 TRACE TRACE SPL AREA AREA RETAIL AGENCY ON AGENCY ON PURCHASE NOC MISC TX T1999 [facility] ITEMS & 5 TRACE TRACE SPL AREA AREA RETAIL AGENCY ON AGENCY ON PURCHASE NOC HOME CARE S5108 [facility] TRAINING 5 TRACE TRACE HOME AREA AREA CARE AGENCY ON AGENCY ON CLIENT PER 15 MIN HOME CARE S5108 [facility] TRAINING 5 TRACE TRACE HOME AREA AREA CARE AGENCY ON AGENCY ON CLIENT PER 15 MIN RADIOLOGI 98934 KENDRA KLINE C EXAM 5 MEDICAL DOMENIC CHEST 2 IMAGING VIEWS ASS FRONTAL&L ATERAL APPLICATI 45906 JESSICA LOPEZ ON SHORT 5 [facility] ARM INC INC SPLINT FOREARM-H AND STATIC RADEX 02466 KENDRA KLINE WRIST 5 MEDICAL DOMENIC COMPLETE IMAGING MINIMUM [address] THORAX 22255 JESSICA LOPEZ W/O 5 [facility] CONTRAST INC INC MATERIAL RADEX 57635 JESSICA LOPEZ ANKLE 4 [facility] COMPLETE INC INC MINIMUM 3 VIEWS RADEX 43461 J[facility]ICA LOPEZ ANKLE 4 [facility] COMPLETE INC INC MINIMUM 3 VIEWS RADEX 89507 JESSICA LOPEZ ANKLE 4 [facility] COMPLETE INC INC MINIMUM [address] V[address] BLOOD [address] HEMATOCRI T CATHETER C[address] CATHETER C1725 [facility] TRANSL[address] NAL ANGIOPLAS TY NON-LASER CATH PLMT 93431 [facility] L [facility] & [address] [place] [address] ARTS W/NJX & ANGIO IMG S&I BLOOD [address] PLATELET AUTOMATED BASIC [address] PANEL CALCIUM IONIZED BASIC 98854 JESSICA LOPEZ METABOLIC 4 [facility] PANEL INC INC CALCIUM TOTAL PRESSURIZ 32757 JESSICA LOPEZ ED/NONPRE 4 [facility] HOSP SSURIZED INC INC INHALATIO N TREATMENT NONINVASI 68314 JESSICA LOPEZ VE 4 [facility] EAR/PULSE INC INC OXIMETRY SINGLE DETER COLLECTIO 52854 JESSICA LOPEZ N VENOUS 4 [facility] BLOOD INC INC VENIPUNCT URE GLUC BLD 40532 JESSICA LOPEZ GLUC MNTR 4 [facility] DEV INC INC CLEARED FDA SPEC HOME USE BLOOD 40577 JESSIAC LOPEZ COUNT 4 [facility] COMPLETE INC INC AUTO&AUTO DIFRNTL WBC HOSPITAL G0378 JESSICA LOPEZ OBSERVATI 4 [facility] ON INC INC SERVICE PER HOUR H[facility] G0378 JESSICA LOPEZ OBSERVATI 4 [facility] ON INC INC SERVICE PER HOUR COMPREHEN 43742 JESSICA LOPEZ SIVE 4 [facility] [address] JESSICA [facility]OPEZ LIPASE 4 [facility] INC INC ECG 52752 JESSICA LOPEZ ROUTINE 4 [facility] ECG INC INC W/LEAST 12 LDS TRCG ONLY W/O I&R NATRIURET 80678 JESSICA LOPEZ IC 4 [facility] [place] [address] JESSICA LOEPZ TROPONIN 4 [facility] QUANTITAT INC INC MARINE BLOOD 31772 JESSICA LOPEZ COUNT 4 [facility] COMPLETE INC INC AUTO&[place] [address] JESSICA LOPEZ INFUSION 4 [facility] THERAPY/P INC INC ROPHYLAXI S /DX 1ST TO 1 HR GLUC BLD 87301 JESSICA LOPEZ GLUC MNTR 4 [facility] DEV INC INC CLEARED FDA SPEC HOME USE NONINVASI 29091 JESSICA LOPEZ VE 4 [facility] EAR/PULSE INC INC OXIMETRY SINGLE DETER PRESSURIZ 70020 JESSICA LOPEZ ED/NONPRE 4 [facility] SSURIZED INC INC INHALATIO N TREATMENT URNLS DIP 63823 JESSICA LOPEZ 4 [facility] STICK/TAB INC INC LET REAGENT AUTO MICROSCOP Y RADIOLOGI 73791 JESSICA LOPEZ C 4 [facility] EXAMINATI INC INC ON CHEST SING[place]IEW FRONTAL THERAPEUT 48720 JESSICA LOPEZ ACTVITY 4 [facility] DIRECT PT INC INC CONTACT EACH 15 MIN BASIC 19282 JESSICA LOPEZ METABOLIC 4 [facility] PANEL INC INC CALCIUM TOTAL PRESSURIZ 92633 JESSICA LOPEZ ED/NONPRE 4 [facility] SSURIZED INC INC INHALATIO N TREATMENT NONINVASI 27696 JESSICA LOPEZ VE 4 [facility] EAR/PULSE INC INC OXIMETRY SINGLE DETER BLOOD 36331 JESSICA LOPEZ COUNT 4 [facility] COMPLETE INC INC AUTO&AUTO DIFRNTL WBC COLLECTIO 30621 JESSICA LOPEZ N VENOUS 4 [facility] BLOOD INC INC VENIPUNCT URE PHYSICAL 05876 JESSICA LOPEZ THERAPY 4 [facility] EVALUATIO INC INC N HOSPITAL G0378 JESSICA LOPEZ OBSERVATI 4 [facility] ON INC INC SERVICE PER [facility]OUR [facility] G0378 JESSICA LOPEZ OBSERVATI 4 [facility] ON INC INC SERVICE PER HOUR RADIOLOGI 14657 JESSICA LOPEZ C 4 [facility] EXAMINATI INC INC ON ANKLE 2 VIEWS [place] PROC G0238 JESSICA LOPEZ IMPRV 4 [facility] RESP INC INC FUNCT NOT G0237 FCE-FCE 15MIN FLUOROSCO 19164 JESSICA LOPEZ PY SPX UP 4 [facility] TO 1 INC INC HOUR PHYS/[place] [address] JESSICA LOPEZ DISTAL 4 [facility] FIBULAR INC INC FRACTURE LAT MALLEOLUS GLUC BLD 77767 JESSICA LOPEZ GLUC MNTR 4 [facility] DEV INC [place] [address] JESSICA LOPEZ INFUSION 4 [facility] THERAPY/P INC INC ROPHYLAXI S /DX 1ST TO 1 HR THERAPEUT 59693 JESSICA LOPEZ IC 4 [facility] INJECTION INC INC IV PUSH EACH NEW DRUG NONINVASI 51505 JESSICA LOPEZ VE 4 [facility] EAR/PULSE INC INC OXIMETRY SINGLE DETER PRESSURIZ 93876 JESSICA LOPEZ ED/NONPRE 4 [facility] SSURIZED INC INC INHALATIO N TREATMENT SUSCEPTIB 48712 JESSICA JESSICA LTY STDY 4 [facility] ANTIMICRB INC INC IAL MICRO/AGA R DILUTJ ANCHOR/SC C1713 JESSICA BEVERLYON REW 4 [facility] OPPOSING INC INC BN-TO-BN/ SOFT TISSUE-TO -BN URNLS DIP 09486 JESSICA LOPEZ 4 [facility] STICK/TAB INC INC LET REAGENT AUTO MICROSCOP Y GUIDE C1769 JESSICAMARLENY BEVERLYON WIRE 4 [facility] INC INC CULTURE 75605 JESSICA LOPEZ BACTERIAL 4 [facility] INC INC QUANTTATI VE COLONY COUNT URINE CULTURE 71123 JESSICAMARLENY LOPEZ BCT 4 [facility] ISOL&PRSM INC INC PTV ID ISOLATE EA URINE RADIOLOGI 77766 JESSICA LOPEZ C EXAM 4 [facility] CHEST 2 INC INC VIEWS FRONTAL&L ATERAL ECG 11536 JESSICA LOPEZ ROUTINE 4 [facility] ECG INC INC W/LEAST 12 LDS TRCG ONLY W/O I&R RADEX 48088 JESSICA LOPEZ ANKLE 4 [facility] COMPLETE INC INC MINIMUM 3 VIEWS RADEX 95650 JESSICAMARLENY LOPEZ ANKLE 4 [facility] COMPLETE INC INC MINIMUM 3 VIEWS Encounters Encounter Start End Date Code Location Performer Type Date OFFICE 27224 [facility] OUTPATIEN 5 5 [facility] VAM[facility] T VISIT INSTITUTE 25 MINUTES OFFICE 29623 [facility] 5 5 [place] JYOTI T VISIT INTERNAL 15 MED MINUTES OFFICE 21054 [facility] OUT[facility] 5 5 PHYSIC[facility] RAMONE T VISIT S GROUP 15 MINUTES [facility] - [facility] T OFFICE 21836 [facility] 5 5 PHYSICIAN JAM T VISIT S GROUP 25 MINUTES [facility]OSP[facility]ESS[facility] 5 5 [facility] OFF[facility] 45864 [facility] OUT[facility] 5 5 PHYSICIAN RAMONE T NEW 45 S GROUP MINUTES OFFICE 46490 [facility] 5 5 [facility] T [facility]ISIT INTERNAL 15 MED MINUTES HOSPITAL MARYANNWLAKISHA - 5 5 [facility] JESSICA [facility] 5 5 [facility] OFFICE 85470 [facility] 5 5 [facility] T [facility]ISIT INTERNAL 25 MED MINUTES HOSPITAL JESSICA - 5 5 [facility] OFFICE 36575 JESSICA HOWARD OUTPATIEN 5 5 [facility] VISIT [facility]OSP[facility] 15 [facility] JESSICA [facility] 5 5 [facility] EMERGENCY 80196 JESSICA 5 5 [facility] T VISIT MODERATE [facility]VERITY HOSPITAL JESSICA - 5 5 [facility] JESSICA - [facility] 4 4 [facility] 4 4 [facility] OUTPATIEN [facility] [place] [id number] 4 [facility] JESSICA [facility] 4 4 [facility] EMERGENCY 32850 JESSICA 4 4 [facility] T VISIT HIGH/URGE NT [facility]VERITY [facility]OSPITAL JESSICA - 4 4 [facility] - [facility] - [facility]
--- OUTSIDE RECORDS SUMMARY | 2017-01-25 14:28 | External Medical Summary Rpt | CCD ---
Author Author , DWIGHT QUINTANILLA Address Unknown Phone maria Immunization Name Date Rout CVX Reac Dose Comm Prov Is Faci e tion ent ider Refu lity Give sed n Infl 09-2 Intr 0.5 Hist PD20 No PD20 uenz 8-20 amus mL oric 256 256 a 17 cula al Quad r Info rmat W/Pr ion es - Sour ce Unsp ecif ied PCV1 02-0 Intr 133 0.5 Hist PD20 No PD20 3 3-20 amus mL oric 255 255 17 cula al r Info rmat ion - Sour ce Unsp ecif ied
--- OUTSIDE RECORDS SUMMARY | 2017-01-25 14:28 | External Medical Summary Rpt | CCD ---
Author Author , DWIGHT QUINTANILLA Address Unknown Phone [email or web address] Care Team Providers Care Roof Slater Name Role Phone BOSTONJAMEELPAT HANNY, SIMONE Unavailable Unavailable HANNY KAM JYOTI, BESSON Unavailable Unavailable JYOTI SUSANNAH VAMSI, Unavailable Unavailable SUSANNAH VAMSI [facility] Unavailable Unavailable [facility], [facility] Unavailable Unavailable [facility] ON, [place] [facility] ELIUD DOMENIC, Unavailable Unavailable ELIUD DOMENIC [facility] Unavailable Unavailable [facility], [facility] Unavailable Unavailable [facility], [facility] FRYMAN EUG, FRYMAN Unavailable Unavailable EUG HAGENSCHREYES CHLOE, Unavailable Unavailable HAGENSCHNEIDER CHLOE [facility] Unavailable Unavailable INC, [facility] Unavailable Unavailable HOSPITAL P, [facility], [facility]available Unavailable [facility] Un[facility], [facility] Unavailable [facility]available [facility], [facility] SMITH RAMONE, SMITH Unavailable Unavailable RAMONE RUFINO STYLES DWI, RUFINO Unavailable Unavailable JR DWI [facility] Unavailable Unavailable INTERNAL MED, [facility] INTERNAL MED [facility], Unavailable Unavailable [facility], Unavailable Unavailable [facility] Unavailable Unavailable [facility] Unavailable Unavailable MEDICAL, [facility] PETTEY JAM, PETTEY Unavailable Unavailable JAM [facility] Unavailable Unavailable SERVICES, [facility], Unavailable Unavailable [facility] Purpose Continuity of Care Document - 02-04-2014 through 2016 Problems Code Diagnosis DOS Provider Status J449 CHRONIC 02-24-2015 KAY[facility], OBSTRUCTIVE INC PULMONARY DISEASE UNS E119 TYPE 2 02-15-2015 DIABETIC DIABETES EXPERTS OF [facility] WITHOUT COMPLICATIO NS [id number] DERMATOCHAL 01-31-2015 [place] [facility] EYE UNS INSTITUTE EYELID Z961 PRESENCE OF 01-31-2015 [facility] LENS J0100 ACUTE 01-28-2015 [place] [facility] SINUSITIS INTERNAL UNSPECIFIED MED M722 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 [place] [facility] FIBROMATOSI INTERNAL S MED I10 ESSENTIAL 01-20-2015 [facility] HYPERTENSIO AGENCY ON N 4280 CONGESTIVE 12-29-2014 [place] [facility] FAILURE AGENCY ON UNSPECIFIED 428 HEART 12-28-2014 [place] FAILURE TRACE AREA AGENCY ON 496 CHRONIC 12-25-2014 LINCARE, AIRWAY [place] 48175 ACUTE 12-16-2014 [facility] L[facility]NG[facility], PHYSICIANS WITHOUT GROUP MENTION OF OBSTRUCTIO 80299 UNSPEC 11-30-2014 [facility]ORDERS [facility] BURSAE&TEND INC ONS SHOULDER REGION 7262 OTHER 11-30-2014 [facility] AFFECTIONS [facility] OF SHOULDER INC REGION NEC V571 OTHER 11-30-2014 [facility] PHYSICAL [facility] THERAPY INC 7273 OTHER 11-26-2014 [facility] BURSITIS PHYSICIANS DISORDERS GROUP 67430 PAIN IN 11-18-2014 [place] JOINT, MEDICAL SHOULDER IMAGING ASS REGION 87075 DIAB W/O 11-17-2014 DIABETIC COMP TYPE EXPERTS OF II/UNS NOT [facility] STATED UNCNTRL 44216 HYPERTENSIV 11-14-2014 [facility]ART [facility] DISEASE [facility] P UNSPEC W/HEART FAIL 39177 OBST 11-14-2014 [facility] BRONCHITIS [facility] P W/ACUTE BRONCHITIS 5939 UNSPECIFIED 11-14-2014 [facility] KIDNEY [facility] P AND URETER 07159 CHEST PAIN 11-14-2014 [place] U[facility]PECIFIED [facility] 250 DIABETES 11-04-2014 [place] MELLITUS TRACE AREA AGENCY ON 4760 CHRONIC 10-30-2014 [facility] LARYNGITIS PHYSICIANS GROUP 4784 POLYP OF 10-30-2014 [facility] VOCAL CORD PHYSICIANS OR LARYNX GROUP 7099 UNSPECIFIED 10-30-2014 [facility] DISORDER PHYSICIANS OF GROUP SKIN&SUBCUT ANEOUS TISSUE 3572 POLYNEUROPA 09-28-2014 [place] [facility] [facility] DIABETES INTERNAL MED 06538 ASTHMA, 09-28-2014 [place] UNSPECIFIED VALLEY , INTERNAL UNSPECIFIED MED STATUS V7612 OTHER 07-20-2014 [facility]AL MAMMOGRAM MEDICAL 7862 COUGH 07-09-2014 [facility] 3384 CHRONIC 07-07-2014 [place] PAIN [facility]LEY SYNDROME INTERNAL MED 06240 DYSPHONIA 07-07-2014 [place] [facility] INTERNAL MED 7906 OTHER 07-07-2014 [facility] ABNORMAL [facility] BLOOD INC CHEMISTRY 92117 GOUTY 06-03-2014 [facility] ARTHROPATHY [facility] INC UNSPECIFIED 4019 UNSPECIFIED 06-03-2014 [facility] ESSENTIAL [facility] HYPERTENSIO INC N 78557 PAIN IN 06-03-2014 [place] [facility], MEDICAL FOREARM IMAGING ASS V1582 PERS HX 06-03-2014 [facility] TOBACCO USE [facility] PRESENTING INC [facility] 64407 SOLITARY 05-05-2014 [facility] PULMONARY [facility] NODULE INC V5878 AFTERCARE 04-01-2014 [facility] FOLLOW [facility] SURGERY INC MUSCULOSKEL SYSTEM NEC V5416 AFTERCARE 03-10-2014 [facility] HEALING [facility] TRAUMATIC INC FRACTURE LOWER LEG 2724 OTHER AND 03-02-2014 [facility] HYPERLIPIDE POLLY 3569 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 [facility] OPATHI PERIPHERAL NEUROPATHY 80934 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 [facility] [place] CORONARY ARTERY 33945 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 [facility] 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 34416 ESOPHAGEAL 03-02-2014 [facility] 78510 DEHYDRATION 02-19-2014 [facility] INC 4589 UNSPECIFIED 02-19-2014 [facility] HYPOTENSION INC 7802 SYNCOPE AND 02-19-2014 [facility] COLLAPSE [facility] INC 74784 SHORTNESS 02-19-2014 [facility] OF BREATH [facility] INC V1090 PERSONAL 02-19-2014 [facility] HISTORY [facility] UNSPECIFIED INC MALIGNANT NEOPLASM V1254 PERSONAL HX 02-19-2014 [facility] TIA & CI [facility] W/O INC RESIDUAL DEFICITS 35753 MORBID 02-16-2014 [facility] OBESITY [facility] INC 5990 URINARY 02-16-2014 [facility] TRACT [facility] INFECTION INC SITE NOT SPECIFIED 63656 MALUNION OF 02-16-2014 [facility] FRACTURE [facility] [...] INC 85%/>[address] [facility] FLW RATE PRTBLE E0431 KAYA [...] RX; PER 30 DAYS PRTBLE E0431 [facility] 5 INC INC O2 SYS RENT; FLWMTR HUMIDFR&M ASK O2 CONC 1 E1390 [facility] [place] 5 INC INC 85%/>02 CONC AT [facility] FLW RATE PHRM Q0513 RELI[facility] RELIANT DISPENSIN 5 PHARMACY PHARMACY G FEE SERVICES SERVICES INHALATIO N RX; PER 30 DAYS ALBUTEROL J7620 RELIANT RELIANT TO 2.5 5 PHARMACY PHARMACY MG & SERVICES SERVICES IPRATROPI UM BROM TO 0.5 MG MISC [place] T1999 [facility] ITEMS & 5 TRACE TRACE SPL AREA AREA RETAIL AGENCY ON AGENCY ON PURCHASE NOC HOME CARE S5108 [facility] TRAINING 5 TRACE TRACE HOME AREA AREA CARE AGENCY ON AGENCY ON CLIENT PER 15 MIN PRTBLE E0431 [facility], [facility] 5 INC INC O2 SYS RENT; FLWMTR HUMIDFR&M ASK O2 CONC 1 E1390 [facility] [place] 5 INC INC 85%/>02 CONC AT [facility] FLW RATE HOME CARE S5108 [facility] TRAINING 5 TRACE TRACE HOME AREA AREA CARE AGENCY ON AGENCY ON CLIENT PER 15 MIN [facility] [place] T1999 [facility] ITEMS & 5 TRACE TRACE SPL AREA AREA RETAIL AGENCY ON AGENCY ON PURCHASE NOC PHYSICAL 12011 [facility] LOPEZ THERAPY 5 [facility] EVALUATIO INC INC N THERAPEUT 16441 JESSICA LOPEZ IC PX 1/> 5 [facility] AREAS INC INC EACH 15 MIN EXERCISES HOME CARE S5108 [facility] TRAINING 5 TRACE TRACE HOME AREA AREA CARE AGENCY ON AGENCY ON CLIENT PER 15 MIN O2 CONC 1 E1390 [facility] [place] 5 INC INC 85%/>[address] [facility] FLW RATE PRTBLE E0431 [facility] 5 INC INC O2 SYS RENT; FLWMTR HUMIDFR&M ASK PHRM Q0513 RELIANT RELIANT DISPENSIN 5 PHARMACY PHARMACY G FEE SERVICES SERVICES INHALATIO N RX; PER 30 DAYS ALBUTEROL J7620 RELIANT RELIANT TO 2.5 5 PHARMACY PHARMACY MG & SERVICES SERVICES IPRATROPI UM BROM TO 0.5 MG RADEX 53166 J[facility] BEVERLYON SHOULDER 5 [facility] COMPLETE INC INC MINIMUM 2 VIEWS [...] OF CALIBRATO [facility] K[facility] R SOLUTION/ CHIPS [facility] [place] T1999 [facility] ITEMS & 5 TRACE TRACE SPL AREA AREA RETAIL AGENCY ON AGENCY ON PURCHASE NOC HOME CARE S5108 [facility] TRAINING 5 TRACE TRACE HOME AREA AREA CARE AGENCY ON AGENCY ON CLIENT PER 15 MIN ECG 03722 JESSICA JOY JR ROUTINE 5 [facility] W/LEAST P 12 LDS I&R ONLY RADIOLOGI 83221 KENDRA NICHOLS C EXAM 5 MEDICAL HANNY CHEST 2 IMAGING VIEWS ASS FRONTAL&L ATERAL HOME CARE S5108 [facility] 5 TRACE TRACE HOME AREA AREA [...] UM BROM TO 0.5 MG PRTBLE E0431 [facility] 5 INC INC O2 SYS RENT; FLWMTR HUMIDFR&M ASK O2 CONC 1 E1390 [facility] [place] [place] 5 INC INC 85%/>02 CONC AT [facility] FLW RATE HOME CARE S5108 [facility] 5 TRACE TRACE HOME AREA AREA CARE AGENCY ON AGENCY ON CLIENT PER 15 MIN MISC [place] T1999 [facility] ITEMS & 5 TRACE TRACE SPL AREA AREA RETAIL AGENCY ON AGENCY ON PURCHASE NOC HOME CARE S5108 [facility] 5 TRACE TRACE HOME AREA AREA CARE AGENCY ON AGENCY ON CLIENT PER 15 MIN O2 CONC 1 E1390 [facility] [place] [facility] INC INC 85%/>02 CONC AT [facility] FLW RATE PRTBLE E0431 [facility] 5 INC INC O2 SYS RENT; FLWMTR HUMIDFR&M ASK PHRM Q0513 RELIANT RELIANT DISPENSIN 5 PHARMACY PHARMACY G FEE SERVICES SERVICES INHALATIO N RX; PER 30 DAYS ALBUTEROL J7620 RELIANT RELIANT TO 2.5 5 PHARMACY PHARMACY MG & SERVICES SERVICES IPRATROPI UM BROM TO 0.5 MG HOME CARE S5108 [facility] 5 TRACE TRACE HOME AREA AREA CARE AGENCY ON AGENCY ON CLIENT PER 15 MIN MISC [place] T1999 [facility] ITEMS & 5 TRACE TRACE SPL AREA AREA RETAIL AGENCY ON AGENCY ON PURCHASE NOC MISC TX T1999 [facility] ITEMS & 5 TRACE TRACE SPL AREA AREA RETAIL AGENCY ON AGENCY ON PURCHASE NOC HOME CARE S5108 [facility] TRAINING 5 TRACE TRACE HOME AREA AREA [...] BROM TO 0.5 MG HOME CARE S5108 [facility] TRAINING 5 TRACE TRACE HOME AREA AREA CARE AGENCY ON AGENCY ON CLIENT PER 15 MIN HOME CARE S5108 [facility] TRAINING 5 TRACE TRACE HOME AREA AREA CARE AGENCY ON AGENCY ON CLIENT PER 15 MIN COMPUTER- 89697 [facility] AIDED 5 DETECTION RADIOLOGY RADIOLOGY ASSOCIAT ASSOCIAT SCREENING MAMMOGRAP HY SCREENING G0202 [facility] 5 EIDER CHLOE MAMMOGRAP RADIOLOGY HY NIESHA ASSOCIAT INCL CAD WHEN PERFORMD HOME CARE S5108 [facility] TRAINING 5 TRACE TRACE HOME AREA AREA CARE AGENCY ON AGENCY ON CLIENT PER 15 MIN RADIOLOGI 96749 [place] [facility] C EXAM 5 MEDICAL DOMENIC CHEST 2 IMAGING VIEWS ASS FRONTAL&L ATERAL COLLECTIO 04285 [facility] N VENOUS 5 [facility] BLOOD INC INC VENIPUNCT URE HEMOGLOBI 38771 [facility] L[facility] N 5 [facility] GLYCOSYLA INC INC JULIANNE A1C CYANOCOBA 02272 [facility] MATT 5 [facility] VITAMIN INC INC B-12 COMPREHEN 78351 [facility] SIVE 5 [facility] METABOLIC INC INC PANEL BLOOD 64284 [facility] LOPEZ COUNT 5 [facility] COMPLETE INC INC AUTO&AUTO DIFRNTL WBC LIPID 96766 [facility] L[facility] PANEL 5 [facility] INC INC MISC [place] T1999 [facility] ITEMS & 5 TRACE TRACE SPL AREA AREA RETAIL AGENCY ON AGENCY ON PURCHASE NOC MISC TX T1999 [facility] ITEMS & 5 TRACE TRACE SPL AREA AREA RETAIL AGENCY ON AGENCY ON PURCHASE NOC HOME CARE S5108 [facility] TRAINING 5 TRACE TRACE HOME AREA AREA CARE AGENCY ON AGENCY ON CLIENT PER 15 MIN HOME CARE S5108 [facility] TRAINING 5 TRACE TRACE HOME AREA AREA CARE AGENCY ON AGENCY ON CLIENT PER 15 MIN RADIOLOGI 04847 KENDRA KLINE C EXAM 5 MEDICAL DOMENIC CHEST 2 IMAGING VIEWS ASS FRONTAL&L ATERAL APPLICATI 46580 [facility] L[facility]Z ON SHORT 5 [facility] ARM INC INC SPLINT FOREARM-H AND STATIC RADEX 83826 KENDRA KLINE WRIST 5 MEDICAL DOMENIC COMPLETE IMAGING MINIMUM [address] THORAX 93238 JESSICA LOPEZ W/O 5 [facility] CONTRAST INC INC MATERIAL RADEX 35716 J[facility] L[facility] ANKLE 4 [facility] COMPLETE INC INC MINIMUM 3 VIEWS RADEX 71002 [facility] L[facility] ANKLE 4 [facility] COMPLETE INC INC MINIMUM 3 VIEWS RADEX 90882 [facility] L[facility] ANKLE 4 [facility] COMPLETE INC INC MINIMUM 3 VIEWS BLOOD [address] HEMATOCRI T CATHETER C[address] CATHETER C1725 [facility] [address] NAL ANGIOPLAS TY NON-LASER CATH PLMT [address] [facility] L [facility] & [address] [place] [address] ARTS W/NJX & ANGIO IMG S&I BLOOD [address] PLATELET AUTOMATED BASIC [address] PANEL CALCIUM IONIZED BASIC 26362 [facility] METABOLIC 4 [facility] PANEL INC INC CALCIUM TOTAL PRESSURIZ 01578 JESSICA LOPEZ ED/NONPRE 4 [facility] SSURIZED INC INC INHALATIO N TREATMENT NONINVASI 39194 [facility] L[facility] VE 4 [facility] EAR/PULSE INC INC OXIMETRY SINGLE DETER COLLECTIO 67204 [facility] L[facility] N VENOUS 4 [facility] BLOOD INC INC VENIPUNCT URE GLUC BLD 96366 J[facility] L[facility]Z GLUC MNTR 4 [facility] DEV INC INC CLEARED FDA SPEC HOME USE BLOOD 77913 [facility] L[facility]Z COUNT 4 [facility] COMPLETE INC INC AUTO&AUTO DIFRNTL WBC HOSPITAL G0378 J[facility] L[facility] OBSERVATI 4 [facility] ON INC INC SERVICE [facility] G0378 [facility] L[facility] OBSERVATI 4 [facility] ON INC INC SERVICE PER HOUR COMPREHEN 11859 [facility] L[facility] SIVE 4 [facility] [address] J[facility] LIPASE 4 [facility] INC INC ECG 75626 JESSICA LOPEZ ROUTINE 4 [facility] ECG INC INC W/LEAST 12 LDS TRCG ONLY W/O I&R NATRIURET 74273 [facility] LOPEZ IC 4 [facility] [place] [address] JESSICA LOPEZ TROPONIN 4 [facility] QUANTITAT INC INC MARINE BLOOD 54262 [facility]Z COUNT 4 [facility] COMPLETE INC INC AUTO&[place] [address] J[facility]ICA L[facility]Z INFUSION 4 [facility] THERAPY/P INC INC ROPHYLAXI S /DX 1ST TO 1 HR GLUC BLD 32331 JESSICA LOPEZ GLUC MNTR 4 [facility] DEV INC INC CLEARED FDA SPEC HOME USE NONINVASI 35377 [facility] L[facility]Z VE 4 [facility] EAR/PULSE INC INC OXIMETRY SINGLE DETER PRESSURIZ 75968 JESSICA LOPEZ ED/NONPRE 4 [facility] SSURIZED INC INC INHALATIO N TREATMENT URNLS DIP 94612 [facility]ICA LOPEZ 4 [facility] STICK/TAB INC INC LET REAGENT AUTO MICROSCOP Y RADIOLOGI 37284 [facility] L[facility] C 4 [facility] EXAMINATI INC INC ON CHEST SINGLE VIEW FRONTAL THERAPEUT 23181 [facility]ICA [facility] ACTVITY 4 [facility] DIRECT PT INC INC CONTACT EACH 15 MIN BASIC 85310 [facility] L[facility] METABOLIC 4 [facility] PANEL INC INC CALCIUM TOTAL PRESSURIZ 08775 JESSICA LOPEZ ED/NONPRE 4 [facility] SSURIZED INC INC INHALATIO N TREATMENT NONINVASI 89153 [facility] LOPEZ VE 4 [facility] EAR/PULSE INC INC OXIMETRY SINGLE DETER BLOOD 11421 J[facility]ICA LOPEZ COUNT 4 [facility] COMPLETE INC INC AUTO&AUTO DIFRNTL WBC COLLECTIO 01447 JESSICA LOPEZ N VENOUS 4 [facility] BLOOD INC INC VENIPUNCT URE PHYSICAL 19292 JESSICA LOPEZ THERAPY 4 [facility] EVALUATIO INC INC N HOSPITAL G0378 JESSICA [facility]Z OBSERVATI 4 [facility] ON INC INC SERVICE [facility] G0378 [facility] OBSERVATI 4 [facility] ON INC INC SERVICE PER HOUR RADIOLOGI 50638 [facility] L[facility] C 4 [facility] EXAMINATI INC INC ON ANKLE 2 VIEWS [place] PROC G0238 [facility] IMPRV 4 [facility] RESP INC INC FUNCT NOT G0237 FCE-FCE 15MIN FLUOROSCO 08693 JESSICA LOPEZ PY SPX UP 4 [facility] TO 1 INC INC HOUR PHYS/[place] [address] JESSICA [facility]OPEZ DISTAL 4 [facility] FIBULAR INC INC FRACTURE LAT MALLEOLUS GLUC BLD 28448 JESSICA LOPEZ GLUC MNTR 4 [facility] DEV INC [place] [address] JESSICA [facility]OPEZ INFUSION 4 [facility] THERAPY/P INC INC ROPHYLAXI S /DX 1ST TO 1 HR THERAPEUT 74390 [facility]ICA L[facility]Z IC 4 [facility] INJECTION INC INC IV PUSH EACH NEW DRUG NONINVASI 34483 [facility] L[facility] VE 4 [facility] EAR/PULSE INC INC OXIMETRY SINGLE DETER PRESSURIZ 46602 JESSICA LOPEZ ED/NONPRE 4 [facility] SSURIZED INC INC INHALATIO N TREATMENT SUSCEPTIB 19537 JESSICA JESSICA LTY STDY 4 [facility] ANTIMICRB INC INC IAL MICRO/AGA R DILUTJ ANCHOR/SC C1713 J[facility]ICA BEVERLYON REW 4 [facility] OPPOSING INC INC BN-TO-BN/ SOFT TISSUE-TO -BN URNLS DIP 27900 JESSICA LOPEZ 4 [facility] STICK/TAB INC INC LET REAGENT AUTO MICROSCOP Y GUIDE C1769 JESSICAMARLENY BEVERLYON WIRE 4 [facility] INC INC CULTURE 49373 [facility] BACTERIAL 4 [facility] INC INC QUANTTATI VE COLONY COUNT URINE CULTURE 40483 JESSICAMARLENY LOPEZ BCT 4 [facility] ISOL&PRSM INC INC PTV ID ISOLATE EA URINE RADIOLOGI 62630 J[facility]ICA LOPEZ C EXAM 4 [facility] CHEST 2 INC INC VIEWS FRONTAL&L ATERAL ECG 12261 J[facility]ICA LOPEZ ROUTINE 4 [facility] ECG INC INC W/LEAST 12 LDS TRCG ONLY W/O I&R RADEX 48944 [facility] L[facility] ANKLE 4 [facility] COMPLETE INC INC MINIMUM 3 VIEWS RADEX 40724 JESSICAMARLENY LOPEZ ANKLE 4 [facility] COMPLETE INC INC MINIMUM 3 VIEWS Encounters Encounter Start End Date Code Location Performer Type Date OFFICE 92365 [facility] OUTPATIEN 5 5 [facility] 25 MINUTES OFFICE 78419 [place] [facility] OUTPATIEN 5 5 [place] JYOTI T VISIT INTERNAL 15 MED MINUTES OFFICE 54390 [facility] SMITH OUTPATIEN 5 5 PHYSICIAN RAMONE T VISIT S GROUP 15 MINUTES HOSPITAL JESSICA - 5 5 [facility] OUTPATIEN INC T OFFICE 62963 [facility] PETTEY OUTPATIEN 5 5 PHYSICIAN JAM T VISIT S GROUP 25 MINUTES HOSPITAL JESSICA - 5 5 [facility] OUTPATIEN INC OFFICE 88578 [facility] SMITH OUTPATIEN 5 5 PHYSICIAN RAMONE T NEW 45 S GROUP MINUTES OFFICE 03375 [place] [facility]ESSON OUTPATIEN 5 5 [facility] T VISIT INTERNAL 15 MED MINUTES HOSPITAL MARYANNWLAKISHA - 5 5 [facility] JESSICA - 5 5 [facility] OUTPATIEN [facility] OFFICE 09554 [place] [facility]ESSON OUTPATIEN 5 5 [facility] T VISIT INTERNAL 25 MED MINUTES HOSPITAL JESSICA - 5 5 [facility]EN [facility] OFFICE 25655 [facility]ESSICA HOWARD OUTPATIEN 5 5 [facility] VISIT HOSPITAL 15 [facility] JESSICA - 5 5 [facility] OUTPATIEN [facility] EMERGENCY 20651 JESSICA 5 5 [facility] DEPARTMEN [facility] T VISIT MODERATE SEVERITY HOSPITAL JESSICA - 5 5 [facility]EN [facility] H[facility]PITAL JESSICA - 4 4 [facility] OUT[facility]IEN [facility] JESSICA - 4 4 [facility] OUTPATIEN [facility]ESSICA - 4 4 [facility] OUTPATIEN [facility] HOSPITAL [place] [address] 4 [facility] - 4 4 [facility] OUT[facility]IEN [facility] EMERGENCY 79943 [facility]ESSICA 4 4 [facility] DEPARTMEN [facility] T VISIT HIGH/URGE NT SEVERITY HOSPITAL JESSICA - 4 4 [facility] OUTPATIEN [facility] JESSICA - 4 4 [facility]IEN [facility] JESSICA - 4 4 [facility]
--- OUTSIDE RECORDS SUMMARY | 2017-01-25 14:28 | External Medical Summary Rpt | CCD ---
Author Author , DWIGHT QUINTANILLA Address Unknown Phone [email or web address] Immunization Name Date Rout CVX Reac Dose [...]
--- OUTSIDE RECORDS SUMMARY | 2017-01-25 14:29 | External Medical Summary Rpt ---
Author Author [employer], [employer] Organization [employer] Address Unknown Phone Unavailable Results Comprehensive metabolic 2000 panel in Serum or Plasma Observa Value Referen Units Interpr Notes Date tion ce etation Range Albumin/G 1.1 - 1.8 No Low No Sep 15 lobulin informati informati 2017 [Mass on in on in 10:20 PM ratio] in source source Serum or data data Plasma Albumin 3.4 - 5.0 gm/dL Low No Sep 15 [Mass/vol informati 2017 ume] in on in 10:20 PM Serum or source Plasma data Alkaline 46 - 116 U/L High No Sep 15 phosphata informati 2017 se on in 10:20 PM [Enzymati source c data activity/ volume] in Serum or Plasma Bilirubin 0.2 - 1.0 mg/dL Normal No Sep 15 .total informati 2017 [Mass/vol on in 10:20 PM ume] in source Serum or data Plasma Urea 7 - 18 mg/dL High No Sep 15 nitrogen informati 2017 [Mass/vol on in 10:20 PM ume] in source Serum or data Plasma Calcium 8.5 - mg/dL Normal No Sep 15 [Mass/vol 10.1 informati 2017 ume] in on in 10:20 PM Serum or source Plasma data Chloride 98 - 107 mmoL/L Low No Sep 15 [Moles/vo informati 2017 lume] in on in 10:20 PM Serum or source Plasma data Carbon 21.0 - mmoL/L Normal No Sep 15 dioxide, 32.0 informati 2017 total on in 10:20 PM [Moles/vo source lume] in data Serum or Plasma Creatinin 0.55 - mg/dL High No Sep 15 e 1.02 informati 2017 [Mass/vol on in 10:20 PM ume] in source Serum or data Plasma Creatinin 50 - 200 ML/MIN Normal No Sep 15 e renal informati 2017 clearance on in 10:20 PM source predicted data by Cockcroft -Gault formula Estimated 59- ML/MIN Low REFERENCE Sep 15 RANGE: 2017 glomerula >60 10:20 PM r ML/MIN/1. filtratio 73 SQUARE n rate METERSIf (GF this patient is -A merican, then multiply theresult by 1.210. Globulin 1.3 - 3.2 gm/dL High No Sep 15 [Mass/vol informati 2016 ume] in on in 10:20 PM Serum source data Glucose 74 - 106 mg/dL High No Sep 15 [Mass/vol informati 2016 ume] in on in 10:20 PM Serum or source Plasma data Potassium 3.5 - 5.1 mmoL/L Normal No Sep 15 inform2016 [Moles/vo on in 10:20 PM lume] in source Serum or data Plasma Sodium 136 - 145 mmoL/L Low No Sep 15 [Moles/vo informati 2017 lume] in on in 10:20 PM Serum or source Plasma data Aspartate 15 - 37 U/L Low No Sep 15 inform2016 aminotran on in 10:20 PM sferase source [Enzymati data c activity/ volume] in Serum or Plasma Alanine 12 - 78 U/L Normal No Sep 15 aminotran informati 2017 sferase on in 10:20 PM [Enzymati source c data activity/ volume] in Serum or Plasma Protein 6.4 - 8.2 gm/dL Normal No Sep 15 [Mass/vol informati 2017 ume] in on in 10:20 PM Serum or source Plasma data CBC W Auto Differential panel in Blood Observa Value Referen Units Interpr Notes Date tion ce etation Range Basophils 0 - 0.2 K/MM3 Normal No Sep 15 inform2016 [#/volume on in 10:20 PM ] in source Blood by data Automated count Basophils 0.1 - 2.0 % Normal No Sep 15 /100 inform2016 leukocyte on in 10:20 PM s in source Blood by data Automated count Eosinophi 0.0 - 0.4 K/mm3 Normal No Sep 15 ls informati 2016 [#/volume on in 10:20 PM ] in source Blood by data Automated count Eosinophi 0.1 - % Normal No Sep 15 ls/100 12.0 informati 2016 leukocyte on in 10:20 PM s in source Blood by data Automated count Granulocy 1.8 - 7.8 K/mm3 Normal No Sep 15 lauryn informati 2017 [#/volume on in 10:20 PM ] in source Blood by data Automated count Granulocy 37.0 - % Normal No Sep 15 lauryn/100 80.0 informati 2016 leukocyte on in 10:20 PM s in source Blood by data Automated count Hematocri 37.0 - % Low No Sep 15 t [Volume 47.0 informati 2017 on in 10:20 PM Fraction] source of Blood data Hemoglobi 12.2 - g/dL Low No Sep 15 n 16.2 informati 2016 [Mass/vol on in 10:20 PM ume] in source Blood data Lymphocyt 0.7 - 4.5 K/mm3 Normal No Sep 15 es inform 2017 [#/volume on in 10:20 PM ] in source Unspecifi data ed specimen by Automated count Lymphocyt 10 - 50.0 % Normal No Sep 15 es inform 2017 [#/volume on in 10:20 PM ] in source Unspecifi data ed specimen by Automated count Erythrocy 27 - 31.2 pg Low No Sep 15 te mean inform2016 corpuscul on in 10:20 PM ar source hemoglobi data n [Entitic mass] Erythrocy 31.8 - g/dl Low No Sep 15 te mean 35.4 informati 2017 corpuscul on in 10:20 PM ar source hemoglobi data n concentra tion [Mass/vol ume] by Automated count Erythrocy 82.2 - fl Low No Sep 15 te mean 97.8 informati 2017 corpuscul on in 10:20 PM ar volume source [Entitic data volume] by Automated count Monocytes 0.1 - 1.0 K/mm3 Normal No Sep 15 inform2016 [#/volume on in 10:20 PM ] in source Blood by data Automated count Monocytes 1.7 - 9.3 % Normal No Sep 15 /100 informati 2017 leukocyte on in 10:20 PM s in source Blood by data Automated count Platelet 7.4 - fl Low No Sep 15 mean 10.4 informati 2016 volume on in 10:20 PM [Entitic source volume] data in Blood by Automated count Platelets 142 - 424 K/mm3 Normal No Sep 15 inform2016 [#/volume on in 10:20 PM ] in source Blood data Erythrocy 4.2 - 5.4 M/mm3 Normal No Sep 15 lauryn informati 2016 [#/volume on in 10:20 PM ] in source Amniotic data fluid Erythrocy 11.5 - % Normal No Sep 15 te 17.5 informati 2016 distribut on in 10:20 PM ion width source [Entitic data volume] by Automated count Leukocyte 4.8 - K/MM3 Normal No Sep 15 s 10.8 informati 2016 [#/volume on in 10:20 PM ] in source Blood data Basic metabolic panel in Blood Observa Value Referen Units Interpr Notes Date tion ce etation Range Urea 7 - 18 mg/dL High No Sep 8 nitrogen informati 2016 7:06 [Mass/vol on in AM ume] in source Serum or data Plasma Calcium 8.5 - mg/dL Normal No Sep 8 [Mass/vol 10.1 informati 2016 7:06 ume] in on in AM Serum or source Plasma data Chloride 98 - 107 mmoL/L Normal No Sep 8 [Moles/vo informati 2016 7:06 lume] in on in AM Serum or source Plasma data Carbon 21.0 - mmoL/L High No Sep 8 dioxide, 32.0 informati 2016 7:06 total on in AM [Moles/vo source lume] in data Serum or Plasma Creatinin 0.55 - mg/dL High No Sep 8 e 1.02 informati 2016 7:06 [Mass/vol on in AM ume] in source Serum or data Plasma Estimated 59- ML/MIN Low REFERENCE Sep 8 RANGE: 2017 7:06 glomerula >60 AM r ML/MIN/1. filtratio 73 SQUARE n rate METERSIf (GF this patient is -A merican, then multiply theresult by 1.210. Glucose 74 - 106 mg/dL High No Sep 8 [Mass/vol informati 2016 7:06 ume] in on in AM Serum or source Plasma data Potassium 3.5 - 5.1 mmoL/L Normal No Sep 8 informati 2016 7:06 [Moles/vo on in AM lume] in source Serum or data Plasma Sodium 136 - 145 mmoL/L Normal No Sep 8 [Moles/vo informati 2017 7:06 lume] in on in AM Serum or source Plasma data Natriutietic peptide B [Mass/volume] in Serum or Plasma Observa Value Referen Units Interpr Notes Date tion ce etation Range Natriutie 0 - 100 pg/mL High No Sep 8 tic informati 2016 7:06 peptide B on in AM source [Mass/vol data ume] in Serum or Plasma CBC W Auto Differential panel in Blood Observa Value Referen Units Interpr Notes Date tion ce etation Range Basophils 0 - 0.2 K/MM3 Normal No Sep 8 informati 2017 7:06 [#/volume on in AM ] in source Blood by data Automated count Basophils 0.1 - 2.0 % Normal No Sep 8 /100 informati 2017 7:06 leukocyte on in AM s in source Blood by data Automated count Eosinophi 0.0 - 0.4 K/mm3 Normal No Sep 8 ls informati 2016 7:06 [#/volume on in AM ] in source Blood by data Automated count Eosinophi 0.1 - % Normal No Sep 8 ls/100 12.0 informati 2017 7:06 leukocyte on in AM s in source Blood by data Automated count Granulocy 1.8 - 7.8 K/mm3 Normal No Sep 8 lauryn informati 2016 7:06 [#/volume on in AM ] in source Blood by data Automated count Granulocy 37.0 - % Normal No Sep 8 lauryn/100 80.0 informati 2016 7:06 leukocyte on in AM s in source Blood by data Automated count Hematocri 37.0 - % Low No Sep 8 t [Volume 47.0 informati 2017 7:06 on in AM Fraction] source of Blood data Hemoglobi 12.2 - g/dL Low No Sep 8 n 16.2 informati 2017 7:06 [Mass/vol on in AM ume] in source Blood data Lymphocyt 0.7 - 4.5 K/mm3 Normal No Sep 8 es informati 2017 7:06 [#/volume on in AM ] in source Unspecifi data ed specimen by Automated count Lymphocyt 10 - 50.0 % Normal No Sep 8 es informati 2016 7:06 [#/volume on in AM ] in source Unspecifi data ed specimen by Automated count Erythrocy 27 - 31.2 pg Low No Sep 8 te mean informati 2016 7:06 corpuscul on in AM ar source hemoglobi data n [Entitic mass] Erythrocy 31.8 - g/dl Low No Sep 8 te mean 35.4 informati 2016 7:06 corpuscul on in AM ar source hemoglobi data n concentra tion [Mass/vol ume] by Automated count Erythrocy 82.2 - fl Low No Sep 8 te mean 97.8 informati 2016 7:06 corpuscul on in AM ar volume source [Entitic data volume] by Automated count Monocytes 0.1 - 1.0 K/mm3 Normal No Sep 8 informati 2016 7:06 [#/volume on in AM ] in source Blood by data Automated count Monocytes 1.7 - 9.3 % Normal No Sep 8 /100 informati 2016 7:06 leukocyte on in AM s in source Blood by data Automated count Platelet 7.4 - fl Low No Sep 8 mean 10.4 informati 2016 7:06 volume on in AM [Entitic source volume] data in Blood by Automated count Platelets 142 - 424 K/mm3 Normal No Sep 8 informati 2016 7:06 [#/volume on in AM ] in source Blood data Erythrocy 4.2 - 5.4 M/mm3 Normal No Sep 8 lauryn informati 2016 7:06 [#/volume on in AM ] in source Amniotic data fluid Erythrocy 11.5 - % Normal No Sep 8 te 17.5 informati 2016 7:06 distribut on in AM ion width source [Entitic data volume] by Automated count Leukocyte 4.8 - K/MM3 Normal No Sep 8 s 10.8 informati 2016 7:06 [#/volume on in AM ] in source Blood data Basic metabolic panel in Blood Observa Value Referen Units Interpr Notes Date tion ce etation Range Urea 7 - 18 mg/dL High No Dec 04 nitrogen informati 2016 1:25 [Mass/vol on in PM ume] in source Serum or data Plasma Calcium 8.5 - mg/dL Normal No Dec 04 [Mass/vol 10.1 informati 2016 1:25 ume] in on in PM Serum or source Plasma data Chloride 98 - 107 mmoL/L Normal No Dec 04 [Moles/vo informati 2017 1:25 lume] in on in PM Serum or source Plasma data Carbon 21.0 - mmoL/L Normal No Dec 04 dioxide, 32.0 informati 2016 1:25 total on in PM [Moles/vo source lume] in data Serum or Plasma Creatinin 0.55 - mg/dL Normal No Dec 04 e 1.02 informati 2016 1:25 [Mass/vol on in PM ume] in source Serum or data Plasma Estimated 59- ML/MIN Low REFERENCE Dec 04 RANGE: 2016 1:25 glomerula >60 PM r ML/MIN/1. filtratio 73 SQUARE n rate METERSIf (GF this patient is -A mer[place], then multiply theresult by 1.210. Glucose 74 - 106 mg/dL High No Dec 04 [Mass/vol informati 2016 1:25 ume] in on in PM Serum or source Plasma data Potassium 3.5 - 5.1 mmoL/L Normal No Dec 04 inform2016 1:25 [Moles/vo on in PM lume] in source Serum or data Plasma Sodium 136 - 145 mmoL/L Normal No Dec 04 [Moles/vo informati 2016 1:25 lume] in on in PM Serum or source Plasma data Natriutietic peptide B [Mass/volume] in Serum or Plasma Observa Value Referen Units Interpr Notes Date tion ce etation Range Natriutie 0 - 100 pg/mL High No Dec 04 tic 2016 1:25 peptide B on in PM source [Mass/vol data ume] in Serum or Plasma CBC W Auto Differential panel in Blood Observa Value Referen Units Interpr Notes Date tion ce etation Range Basophils 0 - 0.2 K/MM3 Normal No Dec 04 inform2016 1:25 [#/volume on in PM ] in source Blood by data Automated count Basophils 0.1 - 2.0 % Normal No Dec 04 / informati 2016 1:25 leukocyte on in PM s in source Blood by data Automated count Eosinophi 0.0 - 0.4 K/mm3 Normal No Dec 04 ls ati 2016 1:25 [#/volume on in PM ] in source Blood by data Automated count Eosinophi 0.1 - % Normal No Dec 04 ls/100 12.0 informati 2016 1:25 leukocyte on in PM s in source Blood by data Automated count Granulocy 1.8 - 7.8 K/mm3 High No Dec 04 lauryn informati 2016 1:25 [#/volume on in PM ] in source Blood by data Automated count Granulocy 37.0 - % Normal No Dec 04 lauryn/100 80.0 informati 2016 1:25 leukocyte on in PM s in source Blood by data Automated count Hematocri 37.0 - % Low Dec 04 t [Volume 47.0 informati 2016 1:25 on in PM Fraction] source of Blood data Hemoglobi 12.2 - g/dL Low No Dec 04 n 16.2 informati 2017 1:25 [Mass/vol on in PM ume] in source Blood data Lymphocyt 0.7 - 4.5 K/mm3 Normal No Dec 04 es informati 2017 1:25 [#/volume on in PM ] in source Unspecifi data ed specimen by Automated count Lymphocyt 10 - 50.0 % Normal No Dec 04 es inform 2017 1:25 [#/volume on in PM ] in source Unspecifi data ed specimen by Automated count Erythrocy 27 - 31.2 pg Low No Dec 04 te mean informati 2016 1:25 corpuscul on in PM ar source hemoglobi data n [Entitic mass] Erythrocy 31.8 - g/dl Low No Dec 04 te mean 35.4 informati 2017 1:25 corpuscul on in PM ar source hemoglobi data n concentra tion [Mass/vol ume] by Automated count Erythrocy 82.2 - fl Low No Dec 04 te mean 97.8 informati 2016 1:25 corpuscul on in PM ar volume source [Entitic data volume] by Automated count Monocytes 0.1 - 1.0 K/mm3 Normal No Dec 04 informati 2017 1:25 [#/volume on in PM ] in source Blood by data Automated count Monocytes 1.7 - 9.3 % Normal No Dec 04 /100 informati 2017 1:25 leukocyte on in PM s in source Blood by data Automated count Platelet 7.4 - fl Normal No Dec 04 mean 10.4 informati 2017 1:25 volume on in PM [Entitic source volume] data in Blood by Automated count Platelets 142 - 424 K/mm3 Normal No Dec 04 informati 2017 1:25 [#/volume on in PM ] in source Blood data Erythrocy 4.2 - 5.4 M/mm3 Normal No Dec 04 lauryn informati 2017 1:25 [#/volume on in PM ] in source Amniotic data fluid Erythrocy 11.5 - % Normal No Dec 04 te 17.5 informati 2016 1:25 distribut on in PM ion width source [Entitic data volume] by Automated count Leukocyte 4.8 - K/MM3 High No Dec 04 s 10.8 informati 2016 1:25 [#/volume on in PM ] in source Blood data Basic metabolic panel in Blood Observa Value Referen Units Interpr Notes Date tion ce etation Range Urea 7 - 18 mg/dL High No Sep 17 nitrogen informati 2017 [Mass/vol on in 11:34 AM ume] in source Serum or data Plasma Calcium 8.5 - mg/dL Normal No Sep 17 [Mass/vol 10.1 informati 2016 ume] in on in 11:34 AM Serum or source Plasma data Chloride 98 - 107 mmoL/L Low No Sep 17 [Moles/vo informati 2016 lume] in on in 11:34 AM Serum or source Plasma data Carbon 21.0 - mmoL/L Normal No Sep 17 dioxide, 32.0 informati 2016 total on in 11:34 AM [Moles/vo source lume] in data Serum or Plasma Creatinin 0.55 - mg/dL High No Sep 17 e 1.02 informati 2016 [Mass/vol on in 11:34 AM ume] in source Serum or data Plasma Estimated 59- ML/MIN Low REFERENCE Sep 17 RANGE: 2017 glomerula >60 11:34 AM r ML/MIN/1. filtratio 73 SQUARE n rate METERSIf (GF this patient is -A merican, then multiply theresult by 1.210. Glucose 74 - 106 mg/dL Normal No Sep 17 [Mass/vol informati 2016 ume] in on in 11:34 AM Serum or source Plasma data Potassium 3.5 - 5.1 mmoL/L Normal No Sep 17 informati 2016 [Moles/vo on in 11:34 AM lume] in source Serum or data Plasma Sodium 136 - 145 mmoL/L Low No Sep 17 [Moles/vo informati 2016 lume] in on in 11:34 AM Serum or source Plasma data Basic metabolic panel in Blood Observa Value Referen Units Interpr Notes Date tion ce etation Range Urea 7 - 18 mg/dL High No August 30 nitrogen informati 2016 9:30 [Mass/vol on in AM ume] in source Serum or data Plasma Calcium 8.5 - mg/dL Normal No August 30 [Mass/vol 10.1 informati 2016 9:30 ume] in on in AM Serum or source Plasma data Chloride 98 - 107 mmoL/L Normal No August 30 [Moles/vo informati 2016 9:30 lume] in on in AM Serum or source Plasma data Carbon 21.0 - mmoL/L Normal No August 30 dioxide, 32.0 informati 2016 9:30 total on in AM [Moles/vo source lume] in data Serum or Plasma Creatinin 0.55 - mg/dL High No August 30 e 1.02 informati 2016 9:30 [Mass/vol on in AM ume] in source Serum or data Plasma Estimated 59- ML/MIN Low REFERENCE August 30 RANGE: 2016 9:30 glomerula >60 AM r ML/MIN/1. filtratio 73 SQUARE n rate METERSIf (GF this patient is -A merican, then multiply theresult by 1.210. Glucose 74 - 106 mg/dL Normal No August 30 [Mass/vol informati 2016 9:30 ume] in on in AM Serum or source Plasma data Potassium 3.5 - 5.1 mmoL/L Normal No August 30 informati 2016 9:30 [Moles/vo on in AM lume] in source Serum or data Plasma Sodium 136 - 145 mmoL/L Normal No August 30 [Moles/vo informati 2017 9:30 lume] in on in AM Serum or source Plasma data
[2017-01-26] MEDS ORDERED: CARTIA XT240 MG PO (15:18)
== END 2017-01-19 14:50 | disposition home or self-care (01) ==
LOC: UTC 13:47
DX: R42 Dizziness and giddiness (principal); R11.0 Nausea; Z88.2 Allergy status to sulfonamides; I10 Essential (primary) hypertension; E78.5 Hyperlipidemia, unspecified; J44.9 Chronic obstructive pulmonary disease, unspecified; E03.9 Hypothyroidism, unspecified; E11.9 Type 2 diabetes mellitus without complications; F41.8 Other specified anxiety disorders; I48.2 Chronic atrial fibrillation; F17.210 Nicotine dependence, cigarettes, uncomplicated

== ENCOUNTER → 2017-01-24 | Outpatient (CLI) | payer MEDICARE, MEDICAID ==
[~2017-01-24] MED LIST changes: +CARTIA XT240 MG PO; +HYDROCODONE/APA1 TA8 PO; +MECLIZINE HYD12.5 MG PO; +NEURONTIN 100100 MG PO; +SEROQUEL XR200 MG PO
--- NOTE | 2017-01-24 14:54 | RADIOLOGY REPORT PS360 ---
LOWER LEG-RT HISTORY: Right leg pain and swelling CELLULITIS OF RT LEG ORDERING PHYSICIAN: NATHAN GARCIA APRN PATIENT AGE: 66 years COMPARISON: None FINDINGS: There is a bone plate present over the distal aspect of the fibula. No acute fracture or dislocation evident. No lytic or blastic change. There are mild osteoarthritic changes of the medial compartment of the knee. No soft tissue gas or soft tissue foreign body evident. IMPRESSION: 1. Prior ORIF distal fibula. 2. No acute finding
== END ==
LOC: RAD 13:09
DX: L03.115 Cellulitis of right lower limb (principal)

== ENCOUNTER 2017-02-03 20:36 | Emergency (ER) | payer MEDICARE, MEDICAID ==
[~2017-02-03] VITALS: Ht 170.2 cm; Wt 97.1 kg
[2017-02-03 20:43] VITALS: BP 150/75
--- OUTSIDE RECORDS SUMMARY | 2017-02-03 21:02 | External Medical Summary Rpt | CCD ---
Author Author , DWIGHT QUINTANILLA Address Unknown Phone [email or web address] Care Team Providers Care Virtual Assistant For Advertisers Name Role Phone BEINEKE HANNY, BEINEKE Unavailable Unavailable HANNY BESSON JYOTI, BESSON Unavailable Unavailable JYOTI SUSANNAH VAMSI, Unavailable Unavailable SUSANNAH VAMSI [facility] Un[facility] Un[facility], [facility] ELIUD DOMENIC, Unavailable Unavailable ELIUD DOMENIC [facility] Unavailable Unavailable [facility] Unavailable Unavailable [facility] FRYMAN EUG, FRYMAN Unavailable Unavailable EU[facility], [facility] Unavailable Unavailable HOSPITAL P, [facility] H[facility]PITAL P [facility], Unavailable Unavailable [facility], [facility] Unavailable Unavailable [facility], [facility] SMITH RAMONE, SMITH Unavailable Unavailable RAMONE RUFINO JR DWI, RUFINO Unavailable Unavailable JR DWI [facility] Unavailable Unavailable INTERNAL MED, [facility], Unavailable Unavailable [facility] Unavailable Unavailable [facility] Leanne Shaikh MD, Unavailable Unavailable Leanne Shaikh MD [facility] Unavailable Unavailable MEDICAL, [facility] PETTEY JAM, PETTEY Unavailable Unavailable JAM [facility] Unavailable Unavailable SERVICES, [facility], Unavailable Unavailable [facility] Eduin Blanca MD, Unavailable Unavailable Eduin Blanca MD Purpose Continuity of Care Document - 05-28-2012 through 2016 Problems Code Diagnosis DOS Provider Status J449 CHRONIC 02-24-2015 [facility], OBSTRUCTIVE INC PULMONARY DISEASE UNS E119 TYPE 2 02-15-2015 DIABETIC DIABETES EXPERTS OF MELLITUS [place] WITHOUT COMPLICATIO NS [id number] DERMATOCHAL 01-31-2015 [facility] UNS INSTITUTE EYELID Z961 PRESENCE OF 01-31-2015 [facility] LENS J0100 ACUTE 01-28-2015 [facility] SINUSITIS INTERNAL UNSPECIFIED MED M722 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 [facility] FIBROMATOSI INTERNAL S MED I10 ESSENTIAL 01-20-2015 [facility] HYPERTENSIO AGENCY ON N 4280 CONGESTIVE 12-29-2014 [facility] FAILURE AGENCY ON UNSPECIFIED 428 HEART 12-28-2014 [facility] FAILURE [facility]ACE [facility]A AGENCY ON 496 CHRONIC 12-25-2014 [facility], [place] [address] ACUTE 12-16-2014 [facility], PHYSICIANS WITHOUT GROUP MENTION OF OBSTRUCTIO 20864 UNSPEC 11-30-2014 [facility] BURSAE&TEND INC ONS SHOULDER REGION 7262 OTHER 11-30-2014 [facility] OF SHOULDER INC REGION NEC V571 OTHER 11-30-2014 [facility] THERAPY [facility] 7273 OTHER 11-26-2014 [facility] BURSITIS PHYSICIANS DISORDERS GROUP 63415 PAIN IN 11-18-2014 [facility]ING [facility] REGION 45928 DIAB W/O 11-17-2014 DIABETIC COMP TYPE EXPERTS OF II/UNS NOT [facility] STATED UNCNTRL 06395 HYPERTENSIV 11-14-2014 [facility] HEART [facility] DISEASE [facility] UNSPEC W/HEART FAIL 46030 OBST 11-14-2014 [facility] BRONCHITIS [facility] P W/ACUTE BRONCHITIS 5939 UNSPECIFIED 11-14-2014 [facility] P AND URETER 36684 CHEST PAIN 11-14-2014 [facility] 250 DIABETES 11-04-2014 [facility] AGENCY ON 4760 CHRONIC 10-30-2014 [facility] LARYNGITIS PHYSICIANS GROUP 4628 POLYP OF 10-30-2014 [facility] VOCAL CORD PHYSICIANS OR LARYNX GROUP 3183 UNSPECIFIED 10-30-2014 [facility] DISORDER PHYSICIANS OF GROUP SKIN&SUBCUT ANEOUS TISSUE 3572 POLYNEUROPA 09-28-2014 [facility] THY IN [facility] DIABETES INTERNAL MED 24132 ASTHMA, 09-28-2014 [facility] UNSPECIFIED VALLEY , INTERNAL UNSPECIFIED MED STATUS V7612 OTHER 07-20-2014 [facility] MAMMOGRAM MEDICAL 7862 COUGH 07-09-2014 [facility] 3384 CHRONIC 07-07-2014 [facility] PAIN [facility]LEY SYNDROME INTERNAL MED 19479 DYSPHONIA 07-07-2014 [facility] INTERNAL MED 7906 OTHER 07-07-2014 [facility]AL [facility] BLOOD INC CHEMISTRY 45697 GOUTY 06-03-2014 [facility]Y [facility] INC UNSPECIFIED 4019 UNSPECIFIED 06-03-2014 [facility] ESSENTIAL [facility] HYPERTENSIO INC N 63246 PAIN IN 06-03-2014 [facility] FOREARM IMAGING ASS V1582 PERS HX 06-03-2014 [facility]ACCO USE [facility] PRESENTING INC [facility] 79770 SOLITARY 05-05-2014 [facility]ULMONARY [facility] NODULE INC V5878 AFTERCARE 04-01-2014 [facility] SURGERY INC MUSCULOSKEL SYSTEM NEC V5416 AFTERCARE 03-10-2014 [facility]ING [facility] TRAUMATIC INC FRACTURE LOWER LEG 2724 OTHER AND 03-02-2014 [facility] HYPERLIPIDE POLLY 3569 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 [facility] OPATHIC PERIPHERAL NEUROPATHY 82624 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 [facility] [place] [place] 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[facility] 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 71111 ESOPHAGEAL 03-02-2014 [facility] 34207 DEHYDRATION 02-19-2014 [facility] 4589 UNSPECIFIED 02-19-2014 [facility] HYPOTENSION INC 7802 SYNCOPE AND 02-19-2014 [facility]SE [facility] 24314 SHORTNESS 02-19-2014 [facility]ATH [facility] INC V1090 PERSONAL 02-19-2014 [facility]ORY [facility] UNSPECIFIED INC MALIGNANT NEOPLASM V1254 PERSONAL HX 02-19-2014 [facility] CI [facility] W/O INC RESIDUAL DEFICITS 70198 MORBID 02-16-2014 [facility]ITY [facility] INC 5990 URINARY 02-16-2014 [facility] TRACT [facility] INFECTION INC SITE NOT SPECIFIED 76363 MALUNION OF 02-16-2014 [facility]URE [facility] INC 8248 UNSPECIFIED 02-16-2014 [facility] CLOSED [facility] FRACTURE OF INC ANKLE V1581 PERS HX 02-16-2014 [facility]COMPLIAN [facility] CE W/MED TX INC PRS HAZARDS HLTH V8541 BODY MASS 02-16-2014 [facility] INDEX [facility] 40.0-44.9 INC ADULT 276.8 Hypokalemia [facility] 416.9 Cor [facility] [id number] Gastritis [facility] [id number] Pulmonary [facility] [id number] Chronic [facility] Allergies, Adverse Reactions, Alerts Type Drug [...] RO 07 -0 SE 90 6- Lo GA 07 20 ng DE 32 13 er [...] 5 ti MG ve TA BL ET GA 11 05 1 No RA 52 -0 [...] ti G ve Ca ps ul e AP 00 05 2 No AP 40 -0 /H 60 5- Lo YD 36 20 ng RO 56 13 er CO 2 DO Ac NE ti ve 32 5 MG -5 MG Ma 00 05 2 No g- 16 -0 Ox 50 5- Lo 02 20 ng 40 21 13 er 0M 0 G Ac Ta ti b ve ME 51 05 2 No TF 07 -0 OR 90 5- Lo GA 17 20 ng N 22 13 er [...] ve TA BL ET SO 00 02 3 No DI 40 -1 UM 97 4- Lo 98 20 ng CH 42 13 er LO 0 RI Ac DE ti ve 0. 9% SO IDALMIS TI ON MA 00 02 3 No PA 90 -1 P 41 4- Lo 32 98 20 ng 5 26 13 er MG 1 Ac TA ti BL ve ET NC 00 02 2 No OM 64 -1 [...] RO 40 -1 SE 96 4- Lo GA 10 20 ng DE 20 13 er [...] TF 07 -1 OR 90 4- Lo GA 17 20 ng N 22 13 er [...] 3( ve 2. 5) MG /3 ML AP 00 02 3 No AP 40 -1 /H 60 4- Lo YD 36 20 ng RO 56 13 er CO 2 DO Ac NE ti ve 32 5 MG -5 MG AMOR 68 02 3 No CR 09 [...] 0M ti G ve Ta bl et NC 00 02 3 No OT 00 -1 [...] O2% 95 % Respiratory 19 /min Rate 08-11-2013 12:37 Name Value Interpretat Reference Comment ion [...] Order Detail nces retati t Range on Glucose capillary blood glucometer (02-01-2017 06:29) Glucose 10-2 = 126 70-110 complet 017 mg/dl ed capilla 06:[address] Glucose capillary blood glucometer (01-31-2017 20:33) Glucose 10-2 = 109 70-110 complet 017 mg/dl ed capilla 20:[address] Glucose capillary blood glucometer (01-31-2017 16:48) Glucose 10-2 = 117 70-110 complet 017 mg/dl ed capilla 16:[address] Glucose capillary blood glucometer (01-31-2017 11:23) Glucose 10--2 = 111 70-110 complet 017 mg/dl ed capilla 11:[address] Comprehensive metabolic panel (01-31-2017 07:00) Protein 01-31- = 6.2 6.4-8.2 complet total 017 gm/dL ed ser/yuli 07:00 s ALT = 70 12-78 complet (SGPT) 017 U/L ed ser/yuli 07:00 s Serum 01-31-2 = 84 15-37 complet or 017 U/L ed plasma 07:00 asparta te aminotr ansfera Serum 01-31-2 = 145 136-145 complet sodium 017 mmoL/L ed measure 07:00 ment Serum 01-31-2 = 4.1 3.5-5.1 complet potassi 017 mmoL/L ed um 07:00 measure ment Serum 01-31-2 = 112 74-106 complet or 017 mg/dL ed plasma 07:00 glucose measure ment (mas Serum 01-31-2 = 3.4 1.3-3.2 complet globuli 017 gm/dL ed n 07:00 measure ment (mass/v olume) Estimat 01-31-2 = 63 59- complet ed 017 ML/MIN ed glomeru 07:00 lar filtrat ion rate (GF Comment: REFERENCE RANGE: >60 ML/MIN/1.73 SQUARE METERS Comment: If this patient is -[place], then multiply the Comment: result by 1.210. Estimat = 98 50-200 complet ion of 017 ML/MIN ed creatin 07:00 ine renal clearan ce Serum = 0.9 0.55-1. complet or 017 mg/dL 02 ed plasma 07:00 creatin ine measure ment ( Carbon = 28 21.0-32 complet dioxide 017 mmoL/L .0 ed 07:00 measure ment Serum = 109 98-107 complet or 017 mmoL/L ed plasma 07:00 chlorid e measure ment (mo Serum = 9.0 8.5-10. complet or 017 mg/dL 1 ed plasma 07:00 calcium measure ment (mas Serum = 25 7-18 complet or 017 mg/dL ed plasma 07:00 urea nitroge n measure men Serum = 0.5 0.2-1.0 complet or 017 mg/dL ed plasma 07:00 total bilirub in measure m Serum = 125 46-116 complet or 017 U/L ed plasma 07:00 alkalin e phospha tase emmy Serum = 2.8 3.4-5.0 complet or 017 gm/dL ed plasma 07:00 albumin measure ment (mas Serum = 0.8 1.1-1.8 complet or 017 ed plasma 07:00 albumin /globul in mass ra CBC w auto diff (01-31-2017 07:00) Automat = 0.1 0-0.2 complet ed 017 K/MM3 ed blood 07:00 basophi l count (count/ vo Blood = 9.7 4.8-10. complet leukocy 017 K/MM3 8 ed lauryn 07:00 count (number /volume ) Automat = 18.1 11.5-17 complet ed 017 % .5 ed erythro 07:00 cyte distrib ution width Red = 4.18 4.2-5.4 complet blood 017 M/mm3 ed cell 07:00 count Blood = 271 142-424 complet platele 017 K/mm3 ed t count 07:00 Automat = 7.4 7.4-10. complet ed 017 fl 4 ed blood 07:00 platele t mean volume emmy [place] % = 7.6 % 1.7-9.3 complet 017 ed 07:00 Absolut = 0.7 0.1-1.0 complet e 017 K/mm3 ed monocyt 07:00 e count Automat = 75.8 82.2-97 complet ed 017 fl .8 ed erythro 07:00 cyte mean corpusc ular v Automat = 30.1 31.8-35 complet ed 017 g/dl .4 ed erythro 07:00 cyte mean corpusc ular h Mean = 22.8 27-31.2 complet corpusc 017 pg ed ular 07:00 hemoglo bin (MCH) determ Lymphoc = 18.8 10-50.0 complet yte 017 % ed count, 07:00 blood, automat ed Absolut = 1.8 0.7-4.5 complet e 017 K/mm3 ed lymphoc 07:00 yte count Blood = 9.5 12.2-16 complet hemoglo 017 g/dL .2 ed bin 07:00 measure ment (mass/v olum Blood = 31.7 37.0-47 complet hematoc 017 % .0 ed rit 07:00 (volume fractio n) Granulo = 70.4 37.0-80 complet cyte 017 % .0 ed percent 07:00 age Blood = 6.8 1.8-7.8 complet granulo 017 K/mm3 ed cytes 07:00 automat ed count (numb Automat = 2.8 % 0.1-12. complet ed 017 0 ed blood 07:00 eosinop hils/10 0 leukocy t Automat = 0.3 0.0-0.4 complet ed 017 K/mm3 ed blood 07:00 eosinop hil count Baso % = 0.5 % 0.1-2.0 complet 017 ed 07:00 Glucose capillary blood glucometer (01-31-2017 06:00) Glucose 10-19-2 = 124 70-110 complet 017 mg/dl ed capilla 06:[address] Glucose capillary blood glucometer (01-30-2017 20:32) Glucose 01-30-2 = 134 70-110 complet 017 mg/dl ed capilla 20:[address] Glucose capillary blood glucometer (01-30-2017 17:07) Glucose 01-30-2 = 126 70-110 complet 017 mg/dl ed capilla 17:[address] Glucose capillary blood glucometer (01-30-2017 11:38) Glucose 01-30-2 = 139 70-110 complet 017 mg/dl ed capilla 11:[address] Glucose capillary blood glucometer (01-30-2017 06:37) Glucose 01-30-2 = 105 70-110 complet 017 mg/dl ed capilla 06:[address] Glucose capillary blood glucometer (01-29-2017 20:36) Glucose 01-29-2 = 104 70-110 complet 017 mg/dl ed capilla 20:[address] Glucose capillary blood glucometer (01-29-2017 17:11) Glucose 01-29-2 = 106 70-110 complet 017 mg/dl ed capilla 17:[address] Glucose capillary blood glucometer (01-29-2017 11:57) Glucose 01-29-2 = 107 70-110 complet 017 mg/dl ed capilla 11:[address] Differential panel, method unspecified - (01-29-2017 09:20) Blood = 100 complet total 017 #CELLS ed cell 09:20 count Neutrop = 84 % 42-76 complet hil 017 ed count 09:20 Platele NORMAL complet t 017 NORMAL ed estimat 09:20 L e Monocyt = 5 % 2-9 complet e % 017 ed 09:20 Periphe 1+ 1+ L complet ral 017 ed blood 09:20 smear examina tion by nely LYMPH 8 % 10-50 complet 017 ed 09:20 Hypochr 2+ 2+ L complet omatic 017 ed red 09:20 blood cell detecti on Manual 10-17-2 = 2 % 0-3 complet blood 017 ed eosinop 09:20 hils/10 0 leukocy lauryn Automat = 1 % 0-8 complet ed 017 ed blood 09:20 band neutrop hil percent a CBC w auto diff (01-29-2017 09:20) Blood = 10.8 4.8-10. complet leukocy 017 K/MM3 8 ed lauryn 09:20 count (number /volume ) Automat = 17.7 11.5-17 complet ed 017 % .5 ed erythro 09:20 cyte distrib ution width Red = 4.51 4.2-5.4 complet blood 017 M/mm3 ed cell 09:20 count Blood = 267 142-424 complet platele 017 K/mm3 ed t count 09:20 Automat = 8.1 7.4-10. complet ed 017 fl 4 ed blood 09:20 platele t mean volume emmy [place] % = 4.6 % 1.7-9.3 complet 017 ed 09:20 Absolut = 0.5 0.1-1.0 complet e 017 K/mm3 ed monocyt 09:20 e count Automat = 75.2 82.2-97 complet ed 017 fl .8 ed erythro 09:20 cyte mean corpusc ular v Automat = 29.8 31.8-35 complet ed 017 g/dl .4 ed erythro 09:20 cyte mean corpusc ular h Mean = 22.4 27-31.2 complet corpusc 017 pg ed ular 09:20 hemoglo bin (MCH) determ Lymphoc = 8.8 % 10-50.0 complet yte 017 ed count, 09:20 blood, automat ed Absolut = 1.0 0.7-4.5 complet e 017 K/mm3 ed lymphoc 09:20 yte count Blood = 10.1 12.2-16 complet hemoglo 017 g/dL .2 ed bin 09:20 measure ment (mass/v olum Blood = 33.9 37.0-47 complet hematoc 017 % .0 ed rit 09:20 (volume fractio n) Granulo = 85.4 37.0-80 complet cyte 017 % .0 ed percent 09:20 age Blood = 9.3 1.8-7.8 complet granulo 017 K/mm3 ed cytes 09:20 automat ed count (numb Automat = 0.9 % 0.1-12. complet ed 017 0 ed blood 09:20 eosinop hils/10 0 leukocy t Automat = 0.1 0.0-0.4 complet ed 017 K/mm3 ed blood 09:20 eosinop hil count Automat = 0.0 0-0.2 complet ed 017 K/MM3 ed blood 09:20 basophi l count (count/ vo Baso % = 0.2 % 0.1-2.0 complet 017 ed 09:20 Comprehensive metabolic panel (01-29-2017 09:20) Serum = 3.0 3.4-5.0 complet or 017 gm/dL ed plasma 09:20 albumin measure ment (mas Protein = 7.2 6.4-8.2 complet total 017 gm/dL ed ser/yuli 09:20 s ALT = 29 12-78 complet (SGPT) 017 U/L ed ser/yuli 09:20 s Serum = 37 15-37 complet or 017 U/L ed plasma 09:20 asparta te aminotr ansfera Serum = 140 136-145 complet sodium 017 mmoL/L ed measure 09:20 ment Serum = 4.1 3.5-5.1 complet potassi 017 mmoL/L ed um 09:20 measure ment Serum = 98 74-106 complet or 017 mg/dL ed plasma 09:20 glucose measure ment (mas Serum = 4.2 1.3-3.2 complet globuli 017 gm/dL ed n 09:20 measure ment (mass/v olume) Estimat = 50 59- complet ed 017 ML/MIN ed glomeru 09:20 lar filtrat ion rate (GF Comment: REFERENCE RANGE: >60 ML/MIN/1.73 SQUARE METERS Comment: If this patient is -[place], then multiply the Comment: result by 1.210. Estimat = 83 50-200 complet ion of 017 ML/MIN ed creatin 09:20 ine renal clearan ce Serum = 1.1 0.55-1. complet or 017 mg/dL 02 ed plasma 09:20 creatin ine measure ment ( Carbon = 30 21.0-32 complet dioxide 017 mmoL/L .0 ed 09:20 measure ment Serum = 102 98-107 complet or 017 mmoL/L ed plasma 09:20 chlorid e measure ment (mo Serum = 9.4 8.5-10. complet or 017 mg/dL 1 ed plasma 09:20 calcium measure ment (mas Serum = 38 7-18 complet or 017 mg/dL ed plasma 09:20 urea nitroge n measure men Serum = 0.5 0.2-1.0 complet or 017 mg/dL ed plasma 09:20 total bilirub in measure m Serum = 133 46-116 complet or 017 U/L ed plasma 09:20 alkalin e phospha tase emmy Serum = 0.7 1.1-1.8 complet or 017 ed plasma 09:20 albumin /globul in mass ra Differential panel, method unspecified - (01-29-2017 09:20) Hypochr 2+ complet omia 017 ed [Presen 09:20 ce] in Blood LYMPH 8 % 10% - Low complet 017 50% ed 09:20 Blood 1+ complet smear 017 ed finding 09:20 [Identi fier] in Blood by Light microsc opy Platele NORMAL complet ts 017 ed [Presen 09:20 ce] in Blood by Light microsc opy Glucose capillary blood glucometer (01-29-2017 06:24) Glucose = 115 70-110 complet 017 mg/dl ed capilla 06:[address] Urine 9-analyte drugs of abuse screening (01-29-2017 04:44) Comment: Collected by nurse? Y Comment: Hold specimen in OE? N Comment: Positive urine drug screen samples are stored for 7 days. Comment: Contact the Lab if confirmation of positives is needed. 11-hydr NEGATIV <50 complet oxy 017 E ed delta-9 04:44 NEGATIV E L tetrahy ng/mL drocann abinol Phencyc = <25 complet lidine 017 NEGATIV ed measure 04:44 E ng/mL ment (mass/v olume) Opiates = <300 complet 017 POSITIV ed measure 04:44 E ng/mL ment (mass/v olume) Comment: This is an UNCONFIRMED result. This result is for medical Comment: purposes and/or treatment only. Methado = <300 complet ne 017 NEGATIV ed measure 04:44 E ng/mL ment (mass/v olume) Cocaine = <300 complet 017 NEGATIV ed measure 04:44 E ng/g ment (mass/v olume) Serum = 200 complet or 017 NEGATIV ng/mL ed plasma 04:44 E ng/mL benzodi azepine s measure m Urine = <200 complet barbitu 017 NEGATIV ed rates 04:44 E ng/mL measure ment by screen Urine NEGATIV <1000 complet ampheta 017 E ed mine 04:44 NEGATIV screeni E L ng test ng/mL Drugs identified in Urine by Screen method (01-29-2017 04:44) Ampheta NEGATIV <1000 complet mine 017 E ed [Presen 04:44 ce] in Urine by Screen method 11-Hydr NEGATIV <50 complet oxy 017 E ed delta-9 04:44 tetrahy drocann abinol [Presen ce] in Unspeci fied specime n Glucose capillary blood glucometer (01-28-2017 20:38) Glucose = 107 70-110 complet 017 mg/dl ed capilla 20:[address] Glucose capillary blood glucometer (01-28-2017 16:57) Glucose = 98 70-110 complet 017 mg/dl ed capilla 16:[address] Glucose capillary blood glucometer (01-28-2017 11:30) Glucose = 110 70-110 complet 017 mg/dl ed capilla 11:[address] Arterial blood gas (01-28-2017 08:00) Arteria = 32.1 23-27 complet l blood 017 MMOL/L ed carbon 08:00 dioxide , total emmy SOURCE RIGHT complet 017 BRACHIA ed 08:00 L Arteria = 93.9 90-100 complet l blood 017 % ed oxygen 08:00 saturat ion calcula Arteria = 74.3 80-100 complet l whole 017 MMHG ed blood 08:00 PO2 at POC Arteria = 7.30 7.35-7. complet l blood 017 MMOL/L 45 ed pH 08:00 measure ment Arteria = 62.9 35.0-45 complet l blood 017 MMHG .0 ed 08:00 partial pressur e of carbo Comment: Comment: Comment: CRITICAL RESULTS Comment: RESULTS CALLED TO: 01/28/17 0806 Gisella Stark Arteria = 30.2 22.0-26 complet l blood 017 MMOL/L .0 ed 08:00 bicarbo zaid measure ment ( Kyle's PATIENT complet test 017 UNABLE ed before 08:00 arteria PATIENT l blood UNABLE gas L Arteria = 3.7 -2.4-+2 complet l blood 017 MMOL/L .3 ed base 08:00 excess determi nation Gas panel in Arterial blood (01-28-2017 08:00) Arteria PATIENT complet l 017 UNABLE ed patency 08:00 Wrist artery --pre arteria l punctur e SOURCE RIGHT complet 017 BRACHIA ed 08:00 L CBC w auto diff (01-28-2017 06:17) Comment: COMMENTS TO CLINICAL PATHOLOGIST: 0600 Baso % = 0.1 % 0.1-2.0 complet 017 ed 06:17 Blood = 12.7 4.8-10. complet leukocy 017 K/MM3 8 ed lauryn 06:17 count (number /volume ) Automat = 17.6 11.5-17 complet ed 017 % .5 ed erythro 06:17 cyte distrib ution width Red = 4.16 4.2-5.4 complet blood 017 M/mm3 ed cell 06:17 count Blood = 274 142-424 complet platele 017 K/mm3 ed t count 06:17 Automat = 7.4 7.4-10. complet ed 017 fl 4 ed blood 06:17 platele t mean volume emmy [place] % = 4.9 % 1.7-9.3 complet 017 ed 06:17 Absolut = 0.6 0.1-1.0 complet e 017 K/mm3 ed monocyt 06:17 e count Automat = 76.8 82.2-97 complet ed 017 fl .8 ed erythro 06:17 cyte mean corpusc ular v Automat = 29.6 31.8-35 complet ed 017 g/dl .4 ed erythro 06:17 cyte mean corpusc ular h Mean = 22.8 27-31.2 complet corpusc 017 pg ed ular 06:17 hemoglo bin (MCH) determ Lymphoc = 9.5 % 10-50.0 complet yte 017 ed count, 06:17 blood, automat ed Absolut = 1.2 0.7-4.5 complet e 017 K/mm3 ed lymphoc 06:17 yte count Blood = 9.5 12.2-16 complet hemoglo 017 g/dL .2 ed bin 06:17 measure ment (mass/v olum Blood = 31.9 37.0-47 complet hematoc 017 % .0 ed rit 06:17 (volume fractio n) Granulo = 82.9 37.0-80 complet cyte 017 % .0 ed percent 06:17 age Blood = 10.5 1.8-7.8 complet granulo 017 K/mm3 ed cytes 06:17 automat ed count (numb Automat = 2.5 % 0.1-12. complet ed 017 0 ed blood 06:17 eosinop hils/10 0 leukocy t Automat = 0.3 0.0-0.4 complet ed 017 K/mm3 ed blood 06:17 eosinop hil count Automat = 0.0 0-0.2 complet ed 017 K/MM3 ed blood 06:17 basophi l count (count/ vo Comprehensive metabolic panel (01-28-2017 06:17) Comment: COMMENTS TO CLINICAL PATHOLOGIST: 0600 Protein = 7.4 6.4-8.2 complet total 017 gm/dL ed ser/yuli 06:17 s ALT = 21 12-78 complet (SGPT) 017 U/L ed ser/yuli 06:17 s Serum = 18 15-37 complet or 017 U/L ed plasma 06:17 asparta te aminotr ansfera Serum = 134 136-145 complet sodium 017 mmoL/L ed measure 06:17 ment Serum = 5.4 3.5-5.1 complet potassi 017 mmoL/L ed um 06:17 measure ment Serum = 103 74-106 complet or 017 mg/dL ed plasma 06:17 glucose measure ment (mas Serum = 4.3 1.3-3.2 complet globuli 017 gm/dL ed n 06:17 measure ment (mass/v olume) Estimat = 22 59- complet ed 017 ML/MIN ed glomeru 06:17 lar filtrat ion rate (GF Comment: REFERENCE RANGE: >60 ML/MIN/1.73 SQUARE METERS Comment: If this patient is -[place]omb[place], then multiply the Comment: result by 1.210. Estimat = 41 50-200 complet ion of 017 ML/MIN ed creatin 06:17 ine renal clearan ce Serum = 2.2 0.55-1. complet or 017 mg/dL 02 ed plasma 06:17 creatin ine measure ment ( Carbon = 32 21.0-32 complet dioxide 017 mmoL/L .0 ed 06:17 measure ment Serum 10-16-2 = 98 98-107 complet or 017 mmoL/L ed plasma 06:17 chlorid e measure ment (mo Serum = 8.6 8.5-10. complet or 017 mg/dL 1 ed plasma 06:17 calcium measure ment (mas Serum = 60 7-18 complet or 017 mg/dL ed plasma 06:17 urea nitroge n measure men Serum = 0.3 0.2-1.0 complet or 017 mg/dL ed plasma 06:17 total bilirub in measure m Serum = 135 46-116 complet or 017 U/L ed plasma 06:17 alkalin e phospha tase emmy Serum = 3.1 3.4-5.0 complet or 017 gm/dL ed plasma 06:17 albumin measure ment (mas Serum = 0.7 1.1-1.8 complet or 017 ed plasma 06:17 albumin /globul in mass ra Glucose capillary blood glucometer (01-28-2017 03:39) Glucose = 116 70-110 complet 017 mg/dl ed capilla 03:[address] Glucose capillary blood glucometer (01-27-2017 20:32) Glucose = 123 70-110 complet 017 mg/dl ed capilla 20:[address] Glucose capillary blood glucometer (01-27-2017 16:51) Glucose 01-27-2 = 136 70-110 complet 017 mg/dl ed capilla 16:[address] Glucose capillary blood glucometer (01-27-2017 11:42) Glucose 01-27- = 120 70-110 complet 017 mg/dl ed capilla 11:[address] Glucose capillary blood glucometer (01-27-2017 06:38) Glucose = 127 70-110 complet 017 mg/dl ed capilla 06:[address] CBC w auto diff (01-27-2017 05:35) Blood = 9.4 4.8-10. complet leukocy 017 K/MM3 8 ed lauryn 05:35 count (number /volume ) Automat = 17.6 11.5-17 complet ed 017 % .5 ed erythro 05:35 cyte distrib ution width Red 10-15-2 = 4.16 4.2-5.4 complet blood 017 M/mm3 ed cell 05:35 count Blood = 277 142-424 complet platele 017 K/mm3 ed t count 05:35 Automat = 7.5 7.4-10. complet ed 017 fl 4 ed blood 05:35 platele t mean volume emmy [place] % = 5.6 % 1.7-9.3 complet 017 ed 05:35 Absolut = 0.5 0.1-1.0 complet e 017 K/mm3 ed monocyt 05:35 e count Automat = 76.3 82.2-97 complet ed 017 fl .8 ed erythro 05:35 cyte mean corpusc ular v Automat = 30.4 31.8-35 complet ed 017 g/dl .4 ed erythro 05:35 cyte mean corpusc ular h Mean = 23.2 27-31.2 complet corpusc 017 pg ed ular 05:35 hemoglo bin ([facility]) determ Lymphoc = 14.6 10-50.0 complet yte 017 % ed count, 05:35 blood, automat ed Absolut = 1.4 0.7-4.5 complet e 017 K/mm3 ed lymphoc 05:35 yte count Blood = 9.7 12.2-16 complet hemoglo 017 g/dL .2 ed bin 05:35 measure ment (mass/v olum Blood = 31.8 37.0-47 complet hematoc 017 % .0 ed rit 05:35 (volume fractio n) Granulo = 77.7 37.0-80 complet cyte 017 % .0 ed percent 05:35 age Blood = 7.3 1.8-7.8 complet granulo 017 K/mm3 ed cytes 05:35 automat ed count (numb Automat = 2.0 % 0.1-12. complet ed 017 0 ed blood 05:35 eosinop hils/10 0 leukocy t Automat 10-15-2 = 0.2 0.0-0.4 complet ed 017 K/mm3 ed blood 05:35 eosinop hil count Baso % = 0.2 % 0.1-2.0 complet 017 ed 05:35 Automat 01-27-2 = 0.0 0-0.2 complet ed 017 K/MM3 ed blood 05:35 basophi l count (count/ vo Basic metabolic panel (01-27-2017 05:35) Serum 2 = 137 136-145 complet sodium 017 mmoL/L ed measure 05:35 ment Serum 2 = 5.0 3.5-5.1 complet potassi 017 mmoL/L ed um 05:35 measure ment Serum = 114 74-106 complet or 017 mg/dL ed plasma 05:35 glucose measure ment (mas Estimat 2 = 38 59- complet ed 017 ML/MIN ed glomeru 05:35 lar filtrat ion rate (GF Comment: REFERENCE RANGE: >60 ML/MIN/1.73 SQUARE METERS Comment: If this patient is -[place], then multiply the Comment: result by 1.210. Estimat 2 = 64 50-200 complet ion of 017 ML/MIN ed creatin 05:35 ine renal clearan ce Serum = 1.4 0.55-1. complet or 017 mg/dL 02 ed plasma 05:35 creatin ine measure ment ( Carbon = 34 21.0-32 complet dioxide 017 mmoL/L .0 ed 05:35 measure ment Serum = 99 98-107 complet or 017 mmoL/L ed plasma 05:35 chlorid e measure ment (mo Serum = 8.5 8.5-10. complet or 017 mg/dL 1 ed plasma 05:35 calcium measure ment (mas Serum = 48 7-18 complet or 017 mg/dL ed plasma 05:35 urea nitroge n measure men Glucose capillary blood glucometer (01-26-2017 20:54) Glucose 01-26-2 = 130 70-110 complet 017 mg/dl ed capilla 20:[address] Glucose capillary blood glucometer (01-26-2017 17:14) Glucose = 171 70-110 complet 017 mg/dl ed capilla 17:[address] Comprehensive metabolic panel (01-26-2017 13:15) Serum = 1.2 0.55-1. complet or 017 mg/dL 02 ed plasma 13:15 creatin ine measure ment ( Carbon = 33 21.0-32 complet dioxide 017 mmoL/L .0 ed 13:15 measure ment Serum = 99 98-107 complet or 017 mmoL/L ed plasma 13:15 chlorid e measure ment (mo Serum = 9.0 8.5-10. complet or 017 mg/dL 1 ed plasma 13:15 calcium measure ment (mas Serum = 42 7-18 complet or 017 mg/dL ed plasma 13:15 urea nitroge n measure men ALT = 16 12-78 complet (SGPT) 017 U/L ed ser/yuli 13:15 s Serum = 14 15-37 complet or 017 U/L ed plasma 13:15 asparta te aminotr ansfera Serum = 0.3 0.2-1.0 complet or 017 mg/dL ed plasma 13:15 total bilirub in measure m Estimat = 74 50-200 complet ion of 017 ML/MIN ed creatin 13:15 ine renal clearan ce Serum = 136 136-145 complet sodium 017 mmoL/L ed measure 13:15 ment Serum = 136 46-116 complet or 017 U/L ed plasma 13:15 alkalin e phospha tase emmy Serum = 3.2 3.4-5.0 complet or 017 gm/dL ed plasma 13:15 albumin measure ment (mas Serum = 0.7 1.1-1.8 complet or 017 ed plasma 13:15 albumin /globul in mass ra Serum = 3.8 3.5-5.1 complet potassi 017 mmoL/L ed um 13:15 measure ment Serum = 157 74-106 complet or 017 mg/dL ed plasma 13:15 glucose measure ment (mas Serum = 4.4 1.3-3.2 complet globuli 017 gm/dL ed n 13:15 measure ment (mass/v olume) Estimat = 45 59- complet ed 017 ML/MIN ed glomeru 13:15 lar filtrat ion rate (GF Comment: REFERENCE RANGE: >60 ML/MIN/1.73 SQUARE METERS Comment: If this patient is -[place], then multiply the Comment: result by 1.210. Protein = 7.6 6.4-8.2 complet total 017 gm/dL ed ser/yuli 13:15 s Glucose capillary blood glucometer (01-26-2017 12:13) Glucose = 117 70-110 complet 017 mg/dl ed capilla 12:[address] BASIC METABOLIC PANEL (12-20-2012 21:05) Glucose 111 [...] K/MM3 8 ed Auto 21:05 RBC # 09-07-2 4.43 4.2-5.4 complet Bld 013 M/mm3 ed Auto 21:05 Hgb 09-07-2 12.4 12.2-16 complet Bld-mCn 013 g/dL .2 ed c 21:05 Hct Fr -07-2 37.6 % 37.0-47 complet Bld 013 .0 ed 21:05 MCV RBC -07-2 84.9 fl 82.2-97 complet 013 .8 ed 21:05 MCH RBC -07-2 28.1 pg 27-31.2 complet Qn 013 ed Auto 21:05 MEAN -07-2 33.1 31.8-35 complet CORPUSC 013 g/dl .4 ed ULAR 21:05 HGB CONC RDW RBC 07-2 15.4 % 11.5-17 complet Auto 013 .5 ed 21:05 Platele -07-2 270 142-424 complet t Bld 013 K/mm3 ed Ql 21:05 Manual MEAN 2 8.1 fl 7.4-10. complet PLATELE 013 4 ed T 21:05 VOLUME Granulo -07-2 67.8 % 37.0-80 complet cytes 013 .0 ed Fr Bld 21:05 Auto LYMPH % -07-2 24.0 % 10-50.0 complet 013 ed 21:05 Monocyt -07-2 5.6 % 1.7-9.3 complet es Fr 013 ed Bld 21:05 Auto Eosinop 09-07-2 2.2 % 0.1-12. complet hil Fr 013 0 ed Bld 21:05 Auto Basophi -07-2 0.3 % 0.1-2.0 complet ls Fr 013 ed Bld 21:05 Auto Granulo 09-07-2 6.8 1.8-7.8 complet cytes # 013 K/mm3 ed Bld 21:05 Auto Lymphoc 09-07-2 2.4 0.7-4.5 complet ytes Fr 013 K/mm3 ed Bld 21:05 Auto Monocyt 09-07-2 0.6 0.1-1.0 complet es # 013 K/mm3 ed Bld 21:05 Auto Eosinop 09-07-2 0.2 0.0-0.4 complet hil # 013 K/mm3 ed Bld 21:05 Auto Basophi 0.0 0-0.2 complet ls # 013 K/MM3 ed Bld 21:05 Auto URIC ACID (11-23-2012 11:30) URIC 9.1 2.6-7.2 complet ACID 013 mg/dL ed 11:30 Glucose BldC [facility] (08-19-2012 11:55) Glucose 166 70-110 complet BldC 013 mg/dl ed [facility] (08-19-2012 06:34) Glucose 103 70-110 complet BldC 013 mg/dl ed Glucomt 06:[facility] COMPREHENSIVE METABOLIC PANEL (08-19-2012 06:05) Glucose 96 [...] SerPl-m 013 gm/dL ed Cnc 06:05 Albumin 05-07-2 2.3 3.4-5.0 complet 013 gm/dL ed SerPl-m 06:05 Cnc Globuli 2 3.5 1.3-3.2 complet n 013 gm/dL ed [...] with AUTO DIFF (08-19-2012 06:05) WBC # 08-19-2 6.0 4.8-10. complet Bld 013 K/MM3 8 ed Auto 06:05 RBC # 08-19-2 3.85 4.2-5.4 complet Bld 013 M/mm3 ed [...] ed ULAR 06:05 HGB CONC RDW RBC 08-19- 15.8 % 11.5-17 complet Auto 013 .5 ed 06:05 Platele 304 142-424 complet t Bld 013 K/mm3 ed Ql 06:05 Manual MEAN 2 8.0 fl 7.4-10. complet PLATELE 013 4 ed T 06:05 VOLUME Granulo 05-07-2 50.0 % 37.0-80 complet cytes 013 .0 ed Fr Bld 06:05 Auto LYMPH % 05-07-2 38.9 % 10-50.0 complet 013 ed 06:05 Monocyt 05-07-2 5.5 % 1.7-9.3 complet es Fr 013 ed Bld 06:05 Auto Eosinop 05-07-2 5.2 % 0.1-12. complet hil Fr 013 [...] K/MM3 ed Bld 06:05 Auto Glucose BldC [facility] (08-18-2012 20:33) Glucose 06-2 150 70-110 complet BldC 013 mg/dl ed Glucomt 20:33 r-[facility] Glucose dC [facility] (08-18-2012 17:05) Glucose 06-2 162 70-110 complet BldC 013 mg/dl ed Glucomt 17:05 r-[facility] Glucose BldC [facility] (08-18-2012 11:49) Glucose 06-2 130 70-110 complet BldC 013 mg/dl ed Glucomt 11:49 r-[facility] URINALYSIS/COMPLETE (08-18-2012 11:38) URINE YELLOW YELLOW complet COLOR 013 ed 11:38 URINE CLEAR CLEAR complet APPEARA 013 ed NCE 11:38 URINE NEGATIV NEG complet GLUCOSE 013 E ed [...] 5.0-8.5 complet PH 013 ed 11:38 URINE 05-06-2 NEGATIV NEG complet PROTEIN 013 E mg/dL ed - 11:38 DIPSTIC K URINE 05-06-2 0.2 NEG complet UROBILI 013 E.U./dL ed NOGEN - 11:38 DIPSTIC K URINE 05-06-2 NEGATIV NEG complet NITRATE 013 E ed - 11:38 DIPSTIC K URINE 05-06-2 NEGATIV NEG complet LEUK 013 E ed ESTERAS 11:38 E URINE 05-06-2 3-5 O complet WBC 013 wbc/hpf ed 11:38 URINE 05-06-2 OCC 0-5 complet SQUAMOU 013 #/hpf ed S CELLS 11:38 Glucose dC [facility] (08-18-2012 06:37) Glucose 06-2 108 70-110 complet BldC 013 mg/dl ed Glucomt 06:37 r-[facility] Glucose dC [facility] (08-17-2012 21:07) Glucose 05-2 176 70-110 complet BldC 013 mg/dl ed Glucomt 21:07 r-[facility] COMPREHENSIVE METABOLIC PANEL (08-17-2012 12:45) Glucose 05-2 164 74-106 complet 013 mg/dL ed Bld-mCn 12:45 c BUN 08-17-2 31 7-18 complet Bld-mCn 013 mg/dL ed c 12:45 Creat 08-17-2 1.2 0.6-1.0 complet SerPl-m 013 mg/dL ed Cnc 12:45 ESTIMAT 05-2 83 50-200 complet ED 013 ML/MIN ed CREATIN 12:45 INE CLEARAN CE GFR 08-17- 46 59- complet (ESTIMA 013 ML/MIN ed JULIANNE) 12:45 Sodium 05-05-2 138 136-145 complet SerPl-s 013 mmoL/L ed Cnc 12:45 Potassi 05-05-2 2.4 3.5-5.1 Low complet um 013 mmoL/L alert ed SerPl-s 12:45 Cnc Chlorid 05-05-2 98 98-107 complet e 013 mmoL/L ed SerPl-s 12:45 Cnc CO2 -05-2 36 21.0-32 complet SerPl-s 013 mmoL/L .0 ed Cnc 12:45 Calcium 05-05-2 8.6 8.5-10. complet 013 mg/dL 1 ed SerPl-m 12:45 Cnc Prot 05-05-2 7.3 6.4-8.2 complet SerPl-m 013 gm/dL ed Cnc 12:45 Albumin -05-2 2.9 3.4-5.0 complet 013 gm/dL ed SerPl-m 12:45 Cnc Globuli -05-2 4.4 1.3-3.2 complet n 013 gm/dL ed Ser-mCn 12:45 c Albumin -05-2 0.7 UNK 1.1-1.8 complet /Glob 013 ed SerPl-m 12:45 Rto Bilirub -05-2 0.4 0.2-1.0 complet 013 mg/dL ed SerPl-m 12:45 Cnc AST -05-2 22 U/L 15-37 complet SerPl-c 013 ed Cnc 12:45 ALT -05-2 36 U/L 30-65 complet SerPl-c 013 ed Cnc 12:45 ALP -05-2 172 U/L 50-136 complet SerPl-c 013 ed Cnc 12:45 CBC with AUTO DIFF (08-17-2012 12:45) WBC # 05-05-2 16.3 4.8-10. complet Bld 013 K/MM3 8 ed Auto 12:45 RBC # 05-05-2 4.77 4.2-5.4 complet Bld 013 M/mm3 ed Auto 12:45 Hgb -05-2 12.8 12.2-16 complet Bld-mCn 013 g/dL .2 ed c 12:45 Hct Fr 05-2 39.4 % 37.0-47 complet Bld 013 .0 [...] 013 K/MM3 ed Bld 12:45 Auto Glucose BldC [facility] (06-01-2012 06:56) Glucose 101 70-110 complet BldC 013 mg/dl ed Glucomt 06:56 r-mCnc Glucose BldC [facility] (05-31-2012 20:27) Glucose 161 70-110 complet BldC 013 mg/dl ed Glucomt 20:27 r-[facility] Glucose dC [facility] (05-31-2012 16:53) Glucose 115 70-110 complet BldC 013 mg/dl ed Glucomt 16:53 r[facility] BASIC METABOLIC PANEL (05-31-2012 12:22) Glucose 114 [...] mg/dL 1 ed SerPl-m 12:22 Cnc Glucose [facility] (05-31-2012 11:57) Glucose 175 70-110 complet BldC 013 mg/dl ed Glucomt 11:57 [facility] Glucose [facility] (05-31-2012 09:35) Glucose 105 70-110 complet BldC 013 mg/dl ed Glucomt 09:35 r[facility] Glucose dC [facility] (05-31-2012 07:47) Glucose 170 70-110 complet BldC 013 mg/dl ed Glucomt 07:47 r-mCnc Glucose BldC Glucomtr-mCnc (05-31-2012 06:22) Glucose 89 70-110 complet BldC 013 mg/dl ed Glucomt 06:22 r-mCnc Glucose BldC Glucomtr-nc (05-30-2012 21:31) Glucose 163 70-110 complet BldC 013 mg/dl ed Glucomt 21:31 r-nc Glucose BldC Glucomtr-nc (05-30-2012 16:38) Glucose 150 70-110 complet BldC 013 mg/dl ed Glucomt 16:38 r-[facility] Glucose BldC Glucomtr-nc (05-30-2012 11:35) Glucose 104 70-110 complet BldC 013 mg/dl ed Glucomt 11:35 r-[facility] Glucose BldC [facility] (05-30-2012 06:33) Glucose 109 70-110 complet BldC 013 mg/dl ed Glucomt 06:33 r[facility] BASIC METABOLIC PANEL (05-30-2012 06:32) Glucose 105 [...] 013 mmoL/L .0 ed Cnc 06:32 Calcium 02-15-2 8.5 8.5-10. complet 013 mg/dL 1 ed SerPl-m 06:32 Cnc CBC with AUTO DIFF (05-30-2012 06:32) WBC # 02-15-2 7.7 4.8-10. complet Bld 013 K/MM3 8 ed Auto 06:32 RBC # 02-15-2 4.04 4.2-5.4 complet Bld 013 M/mm3 ed Auto 06:32 Hgb 02-15-2 10.7 12.2-16 complet Bld-mCn 013 g/dL .2 ed c 06:32 Hct Fr -15-2 33.9 % 37.0-47 complet Bld 013 .0 ed 06:32 MCV RBC 02-15-2 83.9 fl 82.2-97 complet 013 .8 ed 06:32 MCH RBC -15-2 26.4 pg 27-31.2 complet Qn 013 ed Auto 06:32 MEAN 02-15-2 31.5 31.8-35 complet CORPUSC 013 g/dl .4 ed ULAR 06:32 HGB CONC RDW RBC -15-2 15.7 % 11.5-17 complet Auto 013 .5 ed 06:32 Platele 02-15-2 386 142-424 complet t Bld 013 K/mm3 ed Ql 06:32 Manual MEAN -15-2 7.4 fl 7.4-10. complet PLATELE 013 4 ed T 06:32 VOLUME Granulo -15-2 64.0 % 37.0-80 complet cytes 013 .0 ed Fr Bld 06:32 Auto LYMPH % 02-15-2 27.8 % 10-50.0 complet 013 ed 06:32 [...] 013 K/mm3 ed Bld 06:32 Auto Monocyt 05-30-2 0.3 0.1-1.0 complet es # 013 K/mm3 ed Bld 06:32 Auto Eosinop 05-30-2 0.3 0.0-0.4 complet hil # 013 K/mm3 ed Bld 06:32 Auto Basophi 05-30-2 0.0 0-0.2 complet ls # 013 K/MM3 ed Bld 06:32 Auto Glucose BldC Glucomtr-mCnc (05-29-2012 21:06) Glucose 148 70-110 complet BldC 013 mg/dl ed Glucomt 21:06 r-mCnc Glucose BldC Glucomtr-nc (05-29-2012 16:53) Glucose 110 70-110 complet BldC 013 mg/dl ed Glucomt 16:53 r-mCnc Glucose BldC Glucomtr-nc (05-29-2012 11:57) Glucose 177 70-110 complet BldC 013 mg/dl ed Glucomt 11:57 r-mCnc Glucose BldC Glucomtr-mCnc (05-29-2012 09:46) Glucose 139 70-110 complet BldC [...] SerPl-m 013 mg/dL ed Cnc 23:50 Creat 02-13-2 95 50-200 complet Cl 013 ML/MIN ed predict 23:50 ed SerPl C-G-vRa te GFR/BSA 51 59- complet .pred 013 ML/MIN ed SerPl 23:50 Schwart z-vRate Sodium 140 136-145 complet SerPl-s 013 mmoL/L ed Cnc 23:50 POTASSI 4.4 3.5-5.1 complet UM 013 mmoL/L ed 23:50 Chlorid 103 98-107 complet e 013 mmoL/L ed SerPl-s 23:50 Cnc CO2 29 21.0-32 complet SerPl-s 013 mmoL/L .0 ed Cnc 23:50 Calcium 8.8 8.5-10. complet 013 mg/dL 1 ed SerPl-m 23:50 Cnc Prot 6.8 6.4-8.2 complet SerPl-m 013 gm/dL ed [...] complet SerPl-c 013 ed Cnc 23:50 ALP 146 U/L 50-136 complet SerPl-c 013 ed Cnc 23:50 BNP Bld-mCnc (05-28-2012 23:50) BNP 05-28- 345 0-100 complet Bld-mCn 013 pg/mL ed c 23:50 CBC with AUTO DIFF (05-28-2012 23:50) WBC # 05-28-2 10.9 4.8-10. complet Bld 013 K/MM3 8 ed Auto 23:50 RBC # 02-13-2 3.91 4.2-5.4 complet Bld 013 M/mm3 ed Auto 23:50 Hgb -13-2 10.3 12.2-16 complet Bld-mCn 013 g/dL .2 ed c 23:50 Hct Fr --2 32.1 % 37.0-47 complet Bld 013 .0 ed 23:50 MCV RBC 05-28-2 82.1 fl 82.2-97 complet 013 .8 ed 23:50 MCH RBC 05-28-2 26.4 pg 27-31.2 complet Qn 013 ed Auto 23:50 MEAN -13-2 32.2 31.8-35 complet CORPUSC 013 g/dl .4 ed ULAR 23:50 HGB CONC RDW RBC 05-28-2 15.7 % 11.5-17 complet Auto 013 .5 ed 23:50 Platele --2 380 142-424 complet t Bld 013 K/mm3 ed Ql 23:50 Manual MEAN 05-28-2 7.6 fl 7.4-10. complet PLATELE 013 4 ed T 23:50 VOLUME Granulo -13-2 79.2 % 37.0-80 complet cytes 013 .0 ed Fr Bld 23:50 Auto LYMPH % 02-13-2 15.1 % 10-50.0 complet 013 ed 23:50 Monocyt 02-13-2 3.6 % 1.7-9.3 complet es Fr 013 ed Bld 23:50 Auto Eosinop 02-13-2 1.8 % 0.1-12. complet hil Fr 013 0 ed Bld 23:50 Auto Basophi 02-13-2 0.3 % 0.1-2.0 complet ls Fr 013 ed Bld 23:50 Auto Granulo 02-13-2 8.7 1.8-7.8 complet cytes # 013 K/mm3 ed Bld 23:50 Auto Lymphoc 02-13-2 1.7 0.7-4.5 complet ytes Fr 013 K/mm3 ed Bld 23:50 Auto Monocyt 02-13-2 0.4 0.1-1.0 complet es # 013 K/mm3 ed Bld 23:50 Auto Eosinop 02-13-2 0.2 0.0-0.4 complet hil # 013 K/mm3 ed Bld 23:50 Auto Basophi 13-2 0.0 0-0.2 complet ls # 013 K/MM3 ed Bld 23:50 Auto Procedures Procedure DOS Code Location Performer Comment O2 CONC 1 E1390 [facility] [place] 5 INC INC 85%/>02 CONC AT PRS FLW RATE PRTBLE E0431 [facility], [place] 5 INC INC O2 SYS RENT; FLWMTR HUMIDFR&M ASK REPL PATRICIO A4233 DIABETIC DIABETIC ALKALINE 5 [...] 5 EXPERTS EXPERTS HIGH OF OF [place] [facility] R SOLUTION/ CHIPS ALBUTEROL J7620 RELIANT RELIANT TO 2.5 5 PHARMACY PHARMACY MG & SERVICES SERVICES IPRATROPI UM BROM TO 0.5 MG ADMN SET A7003 [facility], SM VOL 5 INC INC NONFILTR PNEUMAT NEBULIZR DISPBL PHRM Q0513 RELIANT RELIANT DISPENSIN 5 PHARMACY PHARMACY G FEE SERVICES SERVICES INHALATIO N RX; PER 30 DAYS O2 CONC 1 E1390 [facility] [place] 5 INC INC 85%/>02 CONC AT PRS FLW RATE PRTBLE E0431 [facility], [facility] 5 INC INC O2 SYS RENT; FLWMTR HUMIDFR&M ASK PHRM Q0513 RELIANT RELIANT DISPENSIN 5 PHARMACY PHARMACY G FEE SERVICES SERVICES INHALATIO N RX; PER 30 DAYS ALBUTEROL J7620 RELIANT RELIANT TO 2.5 5 PHARMACY PHARMACY MG & SERVICES SERVICES IPRATROPI UM BROM TO 0.5 MG MISC TX T1999 [facility] ITEMS & 5 TRACE TRACE SPL AREA AREA RETAIL AGENCY ON AGENCY ON PURCHASE NOC HOME CARE S5108 [facility] TRAINING 5 TRACE TRACE HOME AREA AREA CARE AGENCY ON AGENCY ON CLIENT PER 15 MIN PRTBLE E0431 [facility], [facility] 5 INC INC O2 SYS RENT; FLWMTR HUMIDFR&M ASK O2 CONC 1 E1390 [facility] [place] 5 INC INC 85%/>02 CONC AT PRS FLW RATE HOME CARE S5108 [facility] TRAINING 5 TRACE TRACE HOME AREA AREA CARE AGENCY ON AGENCY ON CLIENT PER 15 MIN MIS TX T1999 [facility] ITEMS & 5 TRACE TRACE SPL AREA AREA RETAIL AGENCY ON AGENCY ON PURCHASE NOC PHYSICAL 53059 JESSICA LOPEZ THERAPY 5 [facility] EVALUATIO INC INC N THERAPEUT 05905 JESSICA LOPEZ IC PX 1/> 5 [facility] AREAS INC INC EACH 15 MIN EXERCISES HOME CARE S5108 [facility] TRAINING 5 TRACE TRACE HOME AREA AREA CARE AGENCY ON AGENCY ON CLIENT PER 15 MIN PRTBLE E0431 [facility], [place] 5 INC INC O2 SYS RENT; FLWMTR HUMIDFR&M ASK O2 CONC 1 E1390 [facility] [place] 5 INC INC 85%/>02 CONC AT PRS FLW RATE PHRM Q0513 RELIANT RELIANT DISPENSIN 5 PHARMACY PHARMACY G FEE SERVICES SERVICES INHALATIO N RX; PER 30 DAYS ALBUTEROL J7620 RELIANT RELIANT TO 2.5 5 PHARMACY PHARMACY MG & SERVICES SERVICES IPRATROPI UM BROM TO 0.5 MG RADEX 72816 JESSICA LOPEZ SHOULDER 5 [facility] COMPLETE INC INC MINIMUM 2 VIEWS NORMAL A4256 DIABETIC DIABETIC LOW AND 5 EXPERTS EXPERTS HIGH OF OF [place] R SOLUTION/ CHIPS LANCETS A4259 DIABETIC DIABETIC PER BOX 5 EXPERTS EXPERTS OF 100 OF OF [place] BLD GLU A4253 DIABETIC DIABETIC TEST/REAG 5 EXPERTS EXPERTS T STRIPS OF OF HOME BLD [place] GLU MON-50 MIS TX T1999 [facility] ITEMS & 5 TRACE TRACE SPL AREA AREA RETAIL AGENCY ON AGENCY ON PURCHASE NOC SPRING-PO A4258 DIABETIC DIABETIC WERED 5 EXPERTS EXPERTS DEVICE OF OF FOR [place] LANCET EACH HOME CARE S5108 [facility] TRAINING 5 TRACE TRACE HOME AREA AREA CARE AGENCY ON AGENCY ON CLIENT PER 15 MIN ECG 01660 JESSICA JOY JR ROUTINE 5 [facility] W/LEAST P 12 LDS I&R ONLY RADIOLOGI 34650 [facility] C EXAM 5 MEDICAL HANNY CHEST 2 IMAGING VIEWS ASS FRONTAL&L ATERAL HOME CARE S5108 [facility] TRAINING 5 TRACE TRACE HOME AREA AREA CARE AGENCY ON AGENCY ON CLIENT PER 15 MIN ALBUTEROL J7620 RELIANT RELIANT TO 2.5 5 PHARMACY PHARMACY MG & SERVICES SERVICES IPRATROPI UM BROM TO 0.5 MG ADMN SET A7005 KAYA KIRKPATRICK, W/SM VOL 5 INC INC NONFILTR NEBULIZR NON-DISPB L PHRM Q0513 RELIANT RELIANT DISPENSIN 5 PHARMACY PHARMACY G FEE SERVICES SERVICES INHALATIO N RX; PER 30 DAYS O2 CONC 1 E1390 [facility] [place] [facility] INC 85%/>02 CONC AT PRSC FLW RATE PRTBLE E0431 [facility] INC INC O2 SYS RENT; FLWMTR HUMIDFR&M ASK HOME CARE S5108 [facility] TRAINING 5 TRACE TRACE HOME AREA AREA CARE AGENCY ON AGENCY ON CLIENT PER 15 MIN MISC TX T1999 [facility] ITEMS & 5 TRACE TRACE [facility] AREA AREA RETAIL AGENCY ON AGENCY ON PURCHASE NOC HOME CARE S5108 [facility] TRAINING 5 TRACE TRACE HOME AREA AREA CARE AGENCY ON AGENCY ON CLIENT PER 15 MIN PRTBLE E0431 KAYA KIRKPATRICK, GASEOUS 5 INC INC O2 SYS RENT; FLWMTR HUMIDFR&M ASK O2 CONC 1 E1390 [facility] [place] 5 INC INC 85%/>02 CONC AT PRSC FLW RATE PHRM Q0513 RELIANT RELIANT DISPENSIN 5 PHARMACY PHARMACY G FEE SERVICES SERVICES INHALATIO N RX; PER 30 DAYS ALBUTEROL J7620 RELIANT RELIANT TO 2.5 5 PHARMACY PHARMACY MG & SERVICES SERVICES IPRATROPI UM BROM TO 0.5 MG HOME CARE S5108 [facility] TRAINING 5 TRACE TRACE HOME AREA AREA CARE AGENCY ON AGENCY ON CLIENT PER 15 MIN MISC TX T1999 [facility] ITEMS & 5 TRACE TRACE SPL AREA AREA RETAIL AGENCY ON AGENCY ON PURCHASE NOC MISC TX T1999 [facility] ITEMS & 5 TRACE TRACE SPL AREA AREA RETAIL AGENCY ON AGENCY ON PURCHASE NOC HOME CARE S5108 [facility] TRAINING 5 TRACE TRACE HOME AREA AREA CARE AGENCY ON AGENCY ON CLIENT PER 15 MIN ALBUTEROL J7620 RELIANT RELIANT TO 2.5 5 PHARMACY PHARMACY MG & SERVICES SERVICES IPRATROPI UM BROM TO 0.5 MG PHRM Q0513 RELIANT RELIANT DISPENSIN 5 PHARMACY PHARMACY G FEE SERVICES SERVICES INHALATIO N RX; PER 30 DAYS PRTBLE E0431 [facility], [facility], GASEOUS 5 INC INC O2 SYS RENT; FLWMTR HUMIDFR&M ASK O2 CONC 1 E1390 [facility], [facility], [place] 5 INC INC 85%/>02 CONC AT [facility] FLW RATE HOME CARE S5108 [facility] TRAINING 5 TRACE TRACE HOME AREA AREA CARE AGENCY ON AGENCY ON CLIENT PER 15 MIN HOME CARE S5108 [facility] TRAINING 5 TRACE TRACE HOME AREA AREA CARE AGENCY ON AGENCY ON CLIENT PER 15 MIN SCREENING G0202 MEAEMILIANO WOLFWVIE 5 W W MAMMOGRAP [facility]ICAL INCL CAD WHEN PERFORMD COMPUTER- [id number] JOSE LUIS MEADOWVIE AIDED 5 W W DETECTION [facility]ICAL MEDICAL SCREENING MAMMOGRAP HY HOME CARE S5108 [facility] TRAINING 5 TRACE TRACE HOME AREA AREA CARE AGENCY ON AGENCY ON CLIENT PER 15 MIN RADIOLOGI 47444 JESSICA LOPEZ C EXAM 5 [facility] CHEST 2 INC INC VIEWS FRONTAL&L ATERAL CYANOCOBA 44607 JESSICA L[facility]Z MATT 5 [facility] VITAMIN INC INC B-12 HEMOGLOBI 01805 JESSICA [facility] N 5 [facility] GLYCOSYLA INC INC JULIANNE A1C BLOOD 55509 JESSICA LOPEZ COUNT 5 [facility] COMPLETE INC INC AUTO&AUTO DIFRNTL WBC LIPID 03744 JESSICA L[facility]Z PANEL 5 [facility] INC INC COMPREHEN 53891 JESSICA [facility] SIVE 5 [facility] METABOLIC INC INC PANEL COLLECTIO 39479 JESSICA LOPEZ N VENOUS [address] [facility] BLOOD INC INC VENIPUNCT URE MISC TX T1999 [facility] ITEMS & 5 TRACE TRACE SPL AREA AREA RETAIL AGENCY ON AGENCY ON PURCHASE NOC MISC TX T1999 [facility] ITEMS & 5 TRACE TRACE SPL AREA AREA RETAIL AGENCY ON AGENCY ON PURCHASE NOC HOME CARE S5108 [facility] TRAINING 5 TRACE TRACE HOME AREA AREA CARE AGENCY ON AGENCY ON CLIENT PER 15 MIN HOME CARE S5108 [facility] TRAINING 5 TRACE TRACE HOME AREA AREA CARE AGENCY ON AGENCY ON CLIENT PER 15 MIN RADIOLOGI 86081 [place] C EXAM 5 MEDICAL DOMENIC CHEST 2 IMAGING VIEWS ASS FRONTAL&L ATERAL APPLICATI 95416 JESSICA LOPEZ ON SHORT [address] [facility] ARM INC INC SPLINT FOREARM-H AND STATIC RADEX 26091 JESSICA LOPEZ WRIST 5 [facility] COMPLETE INC INC MINIMUM [address] THORAX 57901 JESSICA LOPEZ W/O 5 [facility] CONTRAST INC INC MATERIAL RADEX 52851 JESSICA LOPEZ ANKLE 4 [facility] COMPLETE INC INC MINIMUM 3 VIEWS RADEX 47344 JESSICA LOPEZ ANKLE 4 [facility] COMPLETE INC INC MINIMUM 3 VIEWS RADEX 28076 JESSICA LOPEZ ANKLE 4 [facility] COMPLETE INC INC MINIMUM 3 VIEWS BLOOD [address] [place]MT [address] ARTS W/NJX & ANGIO IMG S&I BLOOD [address] PLATELET AUTOMATED CATHETER C[address] NAL ANGIOPLAS TY NON-LASER BASIC [address] [facility] PANEL CALCIUM IONIZED CATHETER C[address] BLOOD 54666 JESSICA LOPEZ COUNT 4 [facility] COMPLETE INC INC AUTO&AUTO DIFRNTL WBC GLUC BLD 79660 JESSICA LOPEZ GLUC MNTR 4 [facility] DEV INC INC CLEARED FDA SPEC HOME USE PRESSURIZ 36245 JESSICA LOPEZ ED/NONPRE 4 [facility] SSURIZED INC INC INHALATIO N TREATMENT NONINVASI 45146 JESSICA L[facility]Z VE 4 [facility] EAR/PULSE INC INC OXIMETRY SINGLE DETER BASIC 65685 JESSICA LOPEZ METABOLIC 4 [facility] PANEL INC INC CALCIUM TOTAL COLLECTIO 67568 JESSICA Curiel VENOUS 4 [facility] BLOOD INC INC VENIPUNCT [facility] G0378 JESSICA LOPEZ OBSERVATI 4 [facility] ON INC INC [facility] G0378 JESSICA L[facility] OBSERVATI 4 [facility] ON INC INC SERVICE PER HOUR RADIOLOGI [id number] [facility] EXAMINATI INC INC ON CHEST SINGLE VIEW FRONTAL COMPREHEN 20178 JESSICA [facility] SIVE 4 [facility] METABOLIC INC INC PANEL ECG 08916 JESSICA LOPEZ ROUTINE 4 [facility] ECG INC INC W/LEAST 12 LDS TRCG ONLY W/O I&R NONINVASI 06214 [facility]ICA [facility] VE [facility] EAR/PULSE [place] [address] JESSICA LOPEZ INFUSION 4 [facility] THERAPY/P INC INC ROPHYLAXI S /DX 1ST TO 1 HR PRESSURIZ 66341 JESSICA LOPEZ ED/NONPRE 4 [facility] SSURIZED INC [place] [address] JESSICA LOPEZ LIPASE 4 [facility] INC INC GLUC BLD 59029 JESSICA LOPEZ GLUC MNTR 4 [facility] DEV INC INC CLEARED FDA SPEC HOME USE URNLS DIP 14897 JESSICA [facility] STICK/TAB INC INC LET REAGENT AUTO MICROSCOP Y NATRIURET 87083 JESSICA L[facility] IC 4 [facility] [place] [address] JESSICA LOPEZ TROPONIN 4 [facility] QUANTITAT INC INC MARINE BLOOD 56320 JESSICA LOPEZ COUNT 4 [facility] COMPLETE INC INC AUTO&AUTO DIFRNTL WBC BLOOD 21459 JESSICA [facility]OPEZ COUNT 4 [facility] COMPLETE INC INC AUTO&AUTO DIFRNTL WBC NONINVASI 07827 [facility]ESSICA [facility] VE 4 [facility] EAR/PULSE INC INC OXIMETRY SINGLE DETER PRESSURIZ 77365 JESSICA LOPEZ ED/NONPRE 4 [facility] SSURIZED INC INC INHALATIO N TREATMENT THERAPEUT 06915 JESSICA [facility]OPEZ ACTVITY 4 [facility] DIRECT PT INC INC CONTACT EACH 15 MIN PHYSICAL 87372 JESSICA LOPEZ THERAPY 4 [facility] EVALUATIO INC INC N BASIC 83733 JESSICA LOPEZ METABOLIC 4 [facility] PANEL [facility] G0378 JESSICA L[facility] OBSERVATI 4 [facility] ON INC INC SERVICE PER HOUR COLLECTIO 86269 JESSICA LOPEZ N VENOUS 4 [facility] BLOOD INC INC VENIPUNCT URE TX PROC G0238 JESSICA [facility] IMPRV 4 [facility] RESP INC INC FUNCT NOT G0237 [facility] G0378 JESSICA LOPE[facility] OBSERVATI 4 [facility] ON INC INC SERVICE PER HOUR GUIDE C1769 JESSICA [facility] WIRE 4 [facility] INC INC CULTURE 41198 JESSICA [facility] BACTERIAL 4 [facility] INC INC QUANTTATI VE COLONY COUNT URINE CULTURE 67740 JESS[facility] L[facility] BCT 4 [facility] ISOL&PRSM INC INC PTV ID ISOLATE EA URINE FLUOROSCO 12099 JESSICA [facility]OPEZ PY SPX UP 4 [facility] TO 1 INC INC HOUR PHYS/QHP TIME RADIOLOGI 39283 JESSICA L[facility]Z C [facility] EXAMINATI INC INC ON ANKLE 2 VIEWS THERAPEUT 36144 JESSICA LOPEZ IC 4 [facility] INJECTION INC [place] [address] JESSICA LOPEZ INFUSION 4 [facility] THERAPY/P INC INC ROPHYLAXI S /DX 1ST TO 1 HR PRESSURIZ 61126 JESSICA LOPEZ ED/NONPRE 4 [facility] SSURIZED INC INC INHALATIO N TREATMENT NONINVASI 73420 JESSICA LOPEZ VE 4 [facility] EAR/PULSE INC [place] [address] JESSICA LOPEZ DISTAL 4 [facility] FIBULAR INC INC FRACTURE LAT MALLEOLUS GLUC BLD 67103 JESSICA LOPEZ GLUC MNTR 4 [facility] DEV INC INC CLEARED FDA SPEC HOME USE SUSCEPTIB 28514 JESSICA LOPEZ LTY STDY 4 [facility] ANTIMICRB INC INC IAL MICRO/AGA R DILUTJ ANCHOR/SC C1713 JESSICA [facility]Z REW 4 [facility] OPPOSING INC INC BN-TO-BN/ SOFT TISSUE-TO -BN URNLS DIP 89607 JESSICA [facility]Z [facility] STICK/TAB INC INC LET REAGENT AUTO MICROSCOP Y RADIOLOGI 05737 JESSICA LOPEZ C EXAM 4 [facility] CHEST 2 INC INC VIEWS FRONTAL&L ATERAL ECG 96206 JESSICA LOPEZ ROUTINE 4 [facility] ECG INC INC W/LEAST 12 LDS TRCG ONLY W/O I&R RADEX 58345 JESSICA LOPEZ ANKLE 4 [facility] COMPLETE INC INC MINIMUM 3 VIEWS RADEX 49405 JESSICA [facility]Z ANKLE 4 [facility] COMPLETE INC INC MINIMUM 3 VIEWS CLOSURE 86.59 [facility]an[facility] MANZANO [employer] [facility] NEC Encounters Encounter Start End Date Code Location Performer Type Date OFFICE 94841 [facility] OUTPATIEN 5 5 [facility] 25 MINUTES OFFICE 83221 [facility] 5 5 [place] [facility] T VISIT INTERNAL 15 MED MINUTES OFFICE 97840 [facility] OUTPATIEN 5 5 PHYSICIAN RAMONE T VISIT S GROUP 15 MINUTES HOSPITAL [facility]ESSICA - 5 5 [facility] OUTPATI[facility] INC OFFICE 54714 [facility] PETTEY OUTPATIEN 5 5 PHYSICIAN JAM T VISIT S GROUP 25 MINUTES HOSPITAL JESSICA - 5 5 [facility] OUTPATIEN [facility] OFFICE 84746 [facility] OUTPATIEN 5 5 PHYSICIAN RAMONE T NEW 45 S GROUP MINUTES OFFICE 22282 [facility] OUT[facility] 5 5 [facility] JYOT[facility] T VISIT INTERNAL 15 MED MINUTES HOSPITAL [facility]ARY[facility] - 5 5 [facility] JESSICA - 5 5 [facility] OUT[facility] OFFICE 65546 [facility] 5 5 [facility] T VISIT INTERNAL 25 MED MINUTES HOSPITAL JESSICA - 5 5 [facility] OUT[facility] OFFICE 29878 JESSICA HOWARD OUTPATIEN 5 5 [facility] 15 MINUTES EMERGENCY 09441 JESSICA 5 5 [facility] VISIT MODERATE [facility]VERITY HOSPITAL JESSICA - 5 5 [facility]EN [facility] JESSICA - 5 5 [facility] OUTPATIEN [facility] JESSICA - 4 4 [facility] OUTPATIEN [facility] JESSICA - 4 4 [facility] OUTPATIEN [facility] JESSICA [facility] 4 4 [facility] OUTPATIEN [facility] [address] [facility] OUTPATIEN [facility] EMERGENCY 53906 JESSICA 4 4 [facility] VISIT HIGH/URGE NT [facility] JESSICA [facility] 4 4 [facility] OUTPATIEN [facility] JESSICA - 4 4 [facility] OUTPATIEN [facility] JESSICA - 4 4 [facility] OUTPATIEN [facility] Emergency VALERY Shaikh MD (ER) 3 20:50 3 21:50 [facility] Emergency VALERY Flowers MD (ER) 3 11:31 3 12:38 [facility] Emergency VAELRY Shaikh MD (ER) 3 19:20 3 20:31 [facility] Inpatient OPAL Blanca ([place]) 3 12:50 3 14:20 [facility] Inpatient OPAL Breaux MD (IN) 3 23:10 3 10:45 [facility]
--- OUTSIDE RECORDS SUMMARY | 2017-02-03 21:02 | External Medical Summary Rpt | CCD ---
Author Author , DWIGHT QUINTANILLA Address Unknown Phone [email or web address] Care Team Providers Care Communications Analyst Name Role Phone BEINEKE HANNY, BEINEKE Unavailable Unavailable HANNY BESSON JYOTI, BESSON Unavailable Unavailable JYOTI SUSANNAH VAM[facility], Unavailable Unavailable SUSANNAH V[facility] Un[facility] Unavailable [facility], [facility] Unavailable Unavailable [facility] ON, [facility] ELIUD DOMENIC, Unavailable Unavailable ELIUD DOMENIC [facility] Unavailable Unavailable [place], [facility] [place] [facility] Unavailable Unavailable [facility], [facility] FRYMAN EUG, FRYMAN Unavailable Unavailable EUG [facility] Un[facility], [facility] Unavailable Unavailable HOSPITAL P, [facility] HOSPITAL P [facility], Unavailable Unavailable [facility], [facility] Unavailable Unavailable IMAGING [facility], [facility] SMITH RAMONE, SMITH Unavailable Unavailable RAMONE RUFINO JR DWI, RUFINO Unavailable Unavailable JR DWI [facility] Unavailable Unavailable INTERNAL MED, [facility], Unavailable Unavailable [facility], Unavailable Unavailable [facility] Leanne Shaikh MD, Unavailable Unavailable Leanne Shaikh MD [facility] Unavailable Unavailable MEDICAL, [facility] PETTEY JAM, PETTEY Unavailable Unavailable JAM [facility] Unavailable Unavailable SERVICES, [facility], Unavailable Unavailable [facility] Eduin Blanca MD, Unavailable Unavailable Eduin Blanca MD Purpose Continuity of Care Document - 05-28-2012 through 2016 Problems Code Diagnosis DOS Provider Status J449 CHRONIC 02-24-2015 [facility], OBSTRUCTIVE INC PULMONARY DISEASE UNS E119 TYPE 2 02-15-2015 DIABETIC DIABETES EXPERTS OF MELLITUS [place] WITHOUT COMPLICATIO NS [id number] DERMATOCHAL 01-31-2015 [facility] UNS INSTITUTE EYELID Z961 PRESENCE OF 01-31-2015 [facility] LENS J0100 ACUTE 01-28-2015 [facility] SINUSITIS INTERNAL UNSPECIFIED MED M722 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 [facility] FIBROMATOSI INTERNAL S MED I10 ESSENTIAL 01-20-2015 [facility] HYPERTENSIO AGENCY ON N 4280 CONGESTIVE 12-29-2014 [facility] FAILURE AGENCY ON UNSPECIFIED 428 HEART 12-28-2014 [place] [facility]URE [facility] AGENCY ON 496 CHRONIC 12-25-2014 [facility], AIRWAY INC OBSTRUCTION NEC 21435 ACUTE 12-16-[address] [facility] LARYNGITIS, PHYSICIANS WITHOUT GROUP MENTION OF OBSTRUCTIO 30101 UNSPEC 11-30-2014 [facility] BURSAE&TEND INC ONS SHOULDER REGION 7262 OTHER 11-30-2014 [facility] OF SHOULDER INC REGION NEC V571 OTHER 11-30-2014 [facility] THERAPY INC 7273 OTHER 11-26-[address] [facility] BURSITIS PHYSICIANS DISORDERS GROUP 92106 PAIN IN 11-18-2014 [place] [facility] REGION 75378 DIAB W/O 11-17-2014 DIABETIC COMP TYPE EXPERTS OF II/UNS NOT [place] STATED UNCNTRL 72270 HYPERTENSIV 11-14-2014 [facility] DISEASE [facility] P UNSPEC W/HEART FAIL 08458 OBST 11-14-2014 [facility] BRONCHITIS [facility] P W/ACUTE BRONCHITIS 5939 UNSPECIFIED 11-14-2014 [facility] P AND URETER 53417 CHEST PAIN 11-14-2014 [place] [facility] 250 DIABETES 11-04-2014 [place] [facility] AGENCY ON 4760 CHRONIC 10-30-[address] [facility] LARYNGITIS PHYSICIANS GROUP 1703 POLYP OF 10-30-[address] [facility] VOCAL CORD PHYSICIANS OR LARYNX GROUP 0819 UNSPECIFIED 10-30-[address] [facility] DISORDER PHYSICIANS OF GROUP SKIN&SUBCUT ANEOUS TISSUE 3572 POLYNEUROPA 09-28-2014 [facility] DIABETES INTERNAL MED 64988 ASTHMA, 09-28-2014 [facility] UNSPECIFIED VALLEY , INTERNAL UNSPECIFIED MED STATUS V7612 OTHER 07-20-2014 [place] SCREEN[facility]IONAL MAMMOGRAM MEDICAL 7862 COUGH 07-09-2014 [facility] 3384 CHRONIC 07-07-2014 [facility] PAIN [facility]LEY SYNDROME INTERNAL MED 49064 DYSPHONIA 07-07-2014 [facility] INTERNAL MED 7906 OTHER 07-07-2014 [facility]AL [facility] BLOOD INC CHEMISTRY 99316 GOUTY 06-03-2014 [facility]ROPATHY [facility] INC UNSPECIFIED 4019 UNSPECIFIED 06-03-2014 [facility] ESSENTIAL [facility] HYPERTENSIO INC N 45829 PAIN IN 06-03-2014 [place] [facility] FOREARM IMAGING ASS V1582 PERS HX 06-03-2014 [facility]BACCO USE [facility] PRESENTING INC [facility] 86400 SOLITARY 05-05-2014 [facility] PULMONARY [facility] NODULE INC V5878 AFTERCARE 04-01-2014 [facility] SURGERY INC MUSCULOSKEL SYSTEM NEC V5416 AFTERCARE 03-10-2014 [facility]ING [facility] TRAUMATIC INC FRACTURE LOWER LEG 2724 OTHER AND 03-02-2014 [facility] HYPERLIPIDE POLLY 3569 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 95166 DEHYDRATION 02-19-2014 [facility] INC 4589 UNSPECIFIED 02-19-2014 [facility] HYPOTENSION INC 7802 SYNCOPE AND 02-19-2014 [facility]SE [facility] 70658 SHORTNESS 02-19-2014 [facility]ATH [facility] INC V1090 PERSONAL 02-19-2014 [facility]ISTORY [facility] UNSPECIFIED INC MALIGNANT NEOPLASM V1254 PERSONAL HX 02-19-2014 [facility] TIA [facility] CI [facility] W/O INC RESIDUAL DEFICITS 27011 MORBID 02-16-2014 [facility]ITY [facility] INC 5990 URINARY 02-16-2014 [facility] TRACT [facility] INFECTION INC SITE NOT SPECIFIED 53623 MALUNION OF 02-16-2014 [facility]RACTURE [facility] INC 8248 UNSPECIFIED 02-16-2014 [facility] CLOSED [facility] FRACTURE OF INC ANKLE V1581 PERS HX 02-16-2014 [facility] NONCOMPLIAN [facility] CE W/MED TX INC PRS HAZARDS HLTH V8541 BODY MASS 02-16-2014 [facility] INDEX [facility] 40.0-44.9 INC ADULT 276.8 Hypokalemia [facility] 416.9 Cor [facility] [id number] Gastritis [facility] [id number] Pulmonary [facility] [id number] Chronic [facility] Allergies, Adverse Reactions, Alerts Type Drug [...] RO 07 -0 SE 90 6- Lo AL 07 20 ng DE 32 13 er [...] 5 ti MG ve TA BL ET AL 11 05 1 No RA 52 -0 [...] TF 07 -0 OR 90 5- Lo AL 17 20 ng N 22 13 er [...] 1 Ac TA ti BL ve ET CT 00 02 2 No OM 64 -1 [...] RO 40 -1 SE 96 4- Lo AL 10 20 ng DE 20 13 er [...] TF 07 -1 OR 90 4- Lo AL 17 20 ng N 22 13 er [...] 0M ti G ve Ta bl et CT 00 02 3 No OT 00 -1 [...] SQUARE METERS Comment: If this patient is -Emirati, then multiply the Comment: result by 1.210. [...] blood 07:00 platele t mean volume emmy Schuyler % = 7.6 % 1.7-9.3 complet 017 [...] blood 09:20 platele t mean volume emmy Schuyler % = 4.6 % 1.7-9.3 complet 017 [...] SQUARE METERS Comment: If this patient is -Emirati, then multiply the Comment: result by 1.210. [...] auto diff (01-28-2017 06:17) Comment: COMMENTS TO TRANSITION OF CARE SPECIALIST: 0600 Baso % = 0.1 % 0.1-2.0 [...] blood 06:17 platele t mean volume emmy Schuyler % = 4.9 % 1.7-9.3 complet 017 [...] metabolic panel (01-28-2017 06:17) Comment: COMMENTS TO TRANSITION OF CARE SPECIALIST: 0600 Protein = 7.4 6.4-8.2 complet total [...] SQUARE METERS Comment: If this patient is -Emirati, then multiply the Comment: result by 1.210. [...] blood 05:35 platele t mean volume emmy Schuyler % = 5.6 % 1.7-9.3 complet 017 [...] SQUARE METERS Comment: If this patient is -Emirati, then multiply the Comment: result by 1.210. [...] SQUARE METERS Comment: If this patient is -Emirati, then multiply the Comment: result by 1.210. [...] ACID 013 mg/dL ed 11:30 Glucose BldC [facility] (08-19-2012 11:55) Glucose 166 70-110 complet BldC 013 mg/dl ed [facility] (08-19-2012 06:34) Glucose 103 70-110 complet BldC 013 mg/dl ed [facility]comt 06:34 [facility] COMPREHENSIVE METABOLIC PANEL (08-19-2012 06:05) Glucose 96 [...] K/MM3 ed Bld 06:05 Auto Glucose BldC [facility] (08-18-2012 20:33) Glucose 06-2 150 70-110 complet BldC 013 mg/dl ed Glucomt 20:33 r-[facility] Glucose dC [facility] (08-18-2012 17:05) Glucose 06-2 162 70-110 complet BldC 013 mg/dl ed Glucomt 17:05 r-[facility] Glucose BldC [facility] (08-18-2012 11:49) Glucose 06-2 130 70-110 complet BldC 013 mg/dl ed Glucomt 11:49 r-[facility] URINALYSIS/COMPLETE (08-18-2012 11:38) URINE YELLOW YELLOW complet [...] #/hpf ed S CELLS 11:38 Glucose dC [facility] (08-18-2012 06:37) Glucose 06-2 108 70-110 complet BldC 013 mg/dl ed Glucomt 06:37 r-[facility] Glucose dC [facility] (08-17-2012 21:07) Glucose 05-2 176 70-110 complet BldC 013 mg/dl ed Glucomt 21:07 r-[facility] COMPREHENSIVE METABOLIC PANEL (08-17-2012 12:45) Glucose 05-2 [...] K/MM3 ed Bld 12:45 Auto Glucose BldC [facility] (06-01-2012 06:56) Glucose 101 70-110 complet BldC 013 mg/dl ed Glucomt 06:56 r-mCnc Glucose BldC [facility] (05-31-2012 20:27) Glucose 161 70-110 complet BldC 013 mg/dl ed Glucomt 20:27 r-[facility] Glucose dC [facility] (05-31-2012 16:53) Glucose 115 70-110 complet BldC 013 mg/dl ed Glucomt 16:53 r-[facility] BASIC METABOLIC PANEL (05-31-2012 12:22) Glucose 114 [...] mg/dL 1 ed SerPl-m 12:22 Cnc Glucose [facility]com[facility] (05-31-2012 11:57) Glucose 175 70-110 complet BldC 013 mg/dl ed Glucomt 11:57 [facility] Glucose [facility] (05-31-2012 09:35) Glucose 105 70-110 complet BldC 013 mg/dl ed Glucomt 09:35 r-[facility] Glucose dC [facility] (05-31-2012 07:47) Glucose 170 70-110 complet BldC 013 mg/dl ed Glucomt 07:47 r-mCnc Glucose BldC Glucomtr-mCnc (05-31-2012 06:22) Glucose 89 70-110 complet BldC 013 mg/dl ed Glucomt 06:22 r-mCnc Glucose BldC Glucomtr-nc (05-30-2012 21:31) Glucose 163 70-110 complet BldC 013 mg/dl ed Glucomt 21:31 r-nc Glucose BldC Glucomtr-nc (05-30-2012 16:38) Glucose 150 70-110 complet BldC 013 mg/dl ed Glucomt 16:38 r-[facility] Glucose BldC Glucomtr-nc (05-30-2012 11:35) Glucose 104 70-110 complet BldC 013 mg/dl ed Glucomt 11:35 r-[facility] Glucose BldC [facility] (05-30-2012 06:33) Glucose 109 70-110 complet BldC 013 mg/dl ed Glucomt 06:33 r-[facility] BASIC METABOLIC PANEL (05-30-2012 06:32) Glucose 105 [...] Location Performer Comment O2 CONC 1 E1390 [facility], [place] 5 INC INC 85%/>02 CONC AT PRS FLW RATE PRTBLE E0431 [facility], GASEOUS 5 INC INC O2 SYS RENT; [...] 5 EXPERTS EXPERTS HIGH OF OF [facility] R SOLUTION/ CHIPS ALBUTEROL J7620 RELIANT RELIANT TO 2.5 5 PHARMACY PHARMACY MG & SERVICES SERVICES IPRATROPI UM BROM TO 0.5 MG ADMN SET A7003 [facility], SM VOL 5 INC INC NONFILTR PNEUMAT NEBULIZR DISPBL PHRM Q0513 [facility] RELIANT DISPENSIN 5 PHARMACY PHARMACY G FEE SERVICES SERVICES INHALATIO N RX; PER 30 DAYS O2 CONC 1 E1390 [facility], [place] 5 INC INC 85%/>02 CONC AT PRS FLW RATE PRTBLE E0431 [facility], GASEOUS 5 INC INC O2 SYS RENT; FLWMTR HUMIDFR&M ASK PHRM Q0513 RELIANT RELIANT DISPENSIN 5 PHARMACY PHARMACY G FEE SERVICES SERVICES INHALATIO N RX; PER 30 DAYS ALBUTEROL J7620 RELIANT RELIANT TO 2.5 5 PHARMACY PHARMACY MG & SERVICES SERVICES IPRATROPI UM BROM TO 0.5 MG MISC TX T1999 [facility] ITEMS & 5 TRACE TRACE SPL AREA AREA RETAIL AGENCY ON AGENCY ON PURCHASE NOC HOME CARE S5108 [facility] TRAINING 5 TRACE TRACE HOME AREA AREA CARE AGENCY ON AGENCY ON CLIENT PER 15 MIN PRTBLE E0431 [facility], GASEOUS 5 INC INC O2 SYS RENT; FLWMTR HUMIDFR&M ASK O2 CONC 1 E1390 [facility] DEL PORT 5 INC INC 85%/>02 CONC AT PRS FLW RATE HOME CARE S5108 [facility] TRAINING 5 TRACE TRACE HOME AREA AREA CARE AGENCY ON AGENCY ON CLIENT PER 15 MIN MIS TX T1999 [facility] ITEMS & 5 TRACE TRACE SPL AREA AREA RETAIL AGENCY ON AGENCY ON PURCHASE NOC PHYSICAL 10686 [facility] THERAPY 5 [facility] EVALUATIO INC INC N THERAPEUT 00180 [facility] IC PX 1/> 5 [facility] AREAS INC INC EACH 15 MIN EXERCISES HOME CARE S5108 [facility] TRAINING 5 TRACE TRACE HOME AREA AREA CARE AGENCY ON AGENCY ON CLIENT PER 15 MIN PRTBLE E0431 [facility], GASEOUS 5 INC INC O2 SYS RENT; FLWMTR HUMIDFR&M ASK O2 CONC 1 E1390 [facility] DEL [place] 5 INC INC 85%/>02 CONC AT PRS FLW RATE PHRM Q0513 RELIANT RELIANT DISPENSIN 5 PHARMACY PHARMACY G FEE SERVICES SERVICES INHALATIO N RX; PER 30 DAYS ALBUTEROL J7620 RELIANT RELIANT TO 2.5 5 PHARMACY PHARMACY MG & SERVICES SERVICES IPRATROPI UM BROM TO 0.5 MG RADEX 85266 [facility] SHOULDER 5 [facility] MEM [...] [place] K[place]PES[place] GLU MON-50 MIS TX T1999 [facility] ITEMS & 5 TRACE TRACE SPL AREA AREA RETAIL AGENCY ON AGENCY ON PURCHASE NOC SPRING-PO A4258 DIABETIC DIABETIC WERED 5 EXPERTS EXPERTS DEVICE OF OF FOR [place] LANCET EACH HOME CARE S5108 [facility] TRAINING 5 TRACE TRACE HOME AREA AREA CARE AGENCY ON AGENCY ON CLIENT PER 15 MIN ECG 79591 [facility] JOY JR ROUTINE 5 [facility] W/LEAST P 12 LDS I&R ONLY RADIOLOGI 36489 [facility] C EXAM 5 MEDICAL HANNY CHEST 2 IMAGING VIEWS ASS FRONTAL&L ATERAL HOME CARE S5108 [facility] TRAINING 5 TRACE TRACE HOME AREA [...] 30 DAYS O2 CONC 1 E1390 [facility] INC 85%/>02 CONC AT PRSC FLW RATE PRTBLE E0431 [facility] 5 INC INC O2 SYS RENT; FLWMTR HUMIDFR&M ASK HOME CARE S5108 [facility] TRAINING 5 TRACE TRACE HOME AREA AREA CARE AGENCY ON AGENCY ON CLIENT PER 15 MIN MISC TX T1999 [facility] ITEMS & 5 TRACE TRACE [facility] AREA AREA RETAIL AGENCY ON AGENCY ON PURCHASE NOC HOME CARE S5108 [facility] TRAINING 5 TRACE TRACE HOME AREA AREA CARE AGENCY ON AGENCY ON CLIENT PER 15 MIN PRTBLE E0431 [facility], GASEOUS 5 INC INC O2 SYS RENT; FLWMTR HUMIDFR&M ASK O2 CONC 1 E1390 [facility], [place] 5 INC INC 85%/>02 CONC AT PRSC FLW RATE PHRM Q0513 RELIANT RELIANT DISPENSIN 5 PHARMACY PHARMACY G FEE SERVICES SERVICES INHALATIO N RX; PER 30 DAYS ALBUTEROL J7620 RELIANT RELIANT TO 2.5 5 PHARMACY PHARMACY MG & SERVICES SERVICES IPRATROPI UM BROM TO 0.5 MG HOME CARE S5108 [facility] TRAINING 5 TRACE TRACE HOME AREA AREA CARE AGENCY ON AGENCY ON CLIENT PER 15 MIN MISC TX T1999 [facility] ITEMS & 5 TRACE TRACE SPL AREA AREA RETAIL AGENCY ON AGENCY ON PURCHASE NOC MISC TX T1999 [facility] ITEMS & 5 TRACE TRACE SPL AREA AREA RETAIL AGENCY ON AGENCY ON PURCHASE NOC HOME CARE S5108 [facility] TRAINING 5 TRACE TRACE HOME AREA AREA CARE AGENCY ON AGENCY ON CLIENT PER 15 MIN ALBUTEROL J7620 RELIANT RELIANT TO 2.5 5 PHARMACY PHARMACY MG & SERVICES SERVICES IPRATROPI UM BROM TO 0.5 MG PHRM Q0513 RELIANT RELIANT DISPENSIN 5 PHARMACY PHARMACY G FEE SERVICES SERVICES INHALATIO N RX; PER 30 DAYS PRTBLE E0431 [facility], [facility], GASEOUS 5 INC INC O2 SYS RENT; FLWMTR HUMIDFR&M ASK O2 CONC 1 E1390 [facility], [facility], [place] 5 INC INC 85%/>02 CONC AT [facility] FLW RATE HOME CARE S5108 [facility] TRAINING 5 TRACE TRACE HOME AREA AREA CARE AGENCY ON AGENCY ON CLIENT PER 15 MIN HOME CARE S5108 [facility] TRAINING 5 TRACE TRACE HOME AREA AREA CARE AGENCY ON AGENCY ON CLIENT PER 15 MIN SCREENING G0202 MEAEMILIANO WOLFWVIE 5 W W MAMMOGRAP REGIONAL REGIONAL HY NIESHA MEDICAL MEDICAL INCL CAD WHEN PERFORMD COMPUTER- 59638 JOSE LUIS MEADOWVIE AIDED 5 W W DETECTION REGIONAL REGIONAL MEDICAL MEDICAL SCREENING MAMMOGRAP HY HOME CARE S5108 [facility] TRAINING 5 TRACE TRACE HOME AREA AREA CARE AGENCY ON AGENCY ON CLIENT PER 15 MIN RADIOLOGI 21760 [facility] C EXAM 5 [facility] CHEST 2 INC INC VIEWS FRONTAL&L ATERAL CYANOCOBA 69943 [facility] MATT 5 [facility] VITAMIN INC INC B-12 HEMOGLOBI 77923 [facility] N 5 [facility] GLYCOSYLA INC INC JULIANNE A1C BLOOD 50602 [facility] COUNT 5 [facility] COMPLETE INC INC AUTO&AUTO DIFRNTL WBC LIPID 43923 [facility] PANEL 5 [facility] INC INC COMPREHEN 29121 [facility] SIVE 5 [facility] METABOLIC INC INC PANEL COLLECTIO 71195 [facility] N VENOUS 5 [facility] BLOOD INC INC VENIPUNCT URE MISC TX T1999 [facility] ITEMS & 5 TRACE TRACE SPL AREA AREA RETAIL AGENCY ON AGENCY ON PURCHASE NOC MISC TX T1999 [facility] ITEMS & 5 TRACE TRACE SPL AREA AREA RETAIL AGENCY ON AGENCY ON PURCHASE NOC HOME CARE S5108 [facility] TRAINING 5 TRACE TRACE HOME AREA AREA CARE AGENCY ON AGENCY ON CLIENT PER 15 MIN HOME CARE S5108 [facility] TRAINING 5 TRACE TRACE HOME AREA AREA CARE AGENCY ON AGENCY ON CLIENT PER 15 MIN RADIOLOGI 14997 [place] [facility] EXAM 5 MEDICAL DOMENIC CHEST 2 IMAGING VIEWS ASS FRONTAL&L ATERAL APPLICATI 15798 [facility] ON SHORT 5 [facility] ARM INC INC SPLINT FOREARM-H AND STATIC RADEX 29896 [facility] WRIST 5 [facility] COMPLETE INC INC MINIMUM [address] THORAX 16147 [facility] W/O 5 [facility] CONTRAST INC INC MATERIAL RADEX 60025 [facility] ANKLE 4 [facility] COMPLETE INC INC MINIMUM 3 VIEWS RADEX 71414 [facility] ANKLE 4 [facility] COMPLETE INC INC MINIMUM 3 VIEWS RADEX 19195 [facility] ANKLE 4 [facility] COMPLETE INC INC MINIMUM 3 VIEWS BLOOD [address] HEMATOCRI T CATH PLMT [address] ARTS W/NJX & ANGIO IMG S&I BLOOD [address] PLATELET AUTOMATED CATHETER C[address] NAL ANGIOPLAS TY NON-LASER BASIC [address] [facility] PANEL CALCIUM IONIZED CATHETER C[address] BLOOD 74587 [facility] COUNT 4 [facility] COMPLETE INC INC AUTO&AUTO DIFRNTL WBC GLUC BLD 71478 [facility] GLUC MNTR 4 [facility] DEV INC INC CLEARED FDA SPEC HOME USE PRESSURIZ 05466 [facility] ED/NONPRE 4 [facility] SSURIZED INC INC INHALATIO N TREATMENT NONINVASI 35254 [facility] L[facility] VE 4 [facility] EAR/PULSE INC INC OXIMETRY SINGLE DETER BASIC 67383 [facility] L[facility] METABOLIC 4 [facility] PANEL INC INC CALCIUM TOTAL COLLECTIO 83818 JESSICA Curiel VENOUS 4 [facility] BLOOD INC INC VENIPUNCT [facility] G0378 J[facility] OBSERVATI 4 [facility] ON INC INC [facility] G0378 [facility] OBSERVATI 4 [facility] ON INC INC SERVICE PER HOUR RADIOLOGI 30634 [facility] L[facility] C 4 [facility] EXAMINATI INC INC ON CHEST SINGLE VIEW FRONTAL COMPREHEN 10113 [facility] L[facility] SIVE 4 [facility] METABOLIC INC INC PANEL ECG 92900 JESS[facility] LOPEZ ROUTINE 4 [facility] ECG INC INC W/LEAST 12 LDS TRCG ONLY W/O I&R NONINVASI 86157 [facility] L[facility] VE 4 [facility] EAR/PULSE [place] [address] [facility] INFUSION 4 [facility] THERAPY/P INC INC ROPHYLAXI S /DX 1ST TO 1 HR PRESSURIZ 90742 [facility] ED/NONPRE 4 [facility] SSURIZED [place] [address] J[facility]ICA OLPEZ LIPASE 4 [facility] INC INC GLUC BLD 23597 [facility] GLUC MNTR 4 [facility] DEV INC INC CLEARED FDA SPEC HOME USE URNLS DIP 30546 [facility] L[facility]Z 4 [facility] STICK/TAB INC INC LET REAGENT AUTO MICROSCOP Y NATRIURET 31009 [facility] L[facility] IC 4 [facility] [place] [address] JESSICA L[facility]Z TROPONIN 4 [facility] QUANTITAT INC INC MARINE BLOOD 47113 [facility] L[facility] COUNT 4 [facility] COMPLETE INC INC AUTO&AUTO DIFRNTL WBC BLOOD 94276 EJSSICA LOPEZ COUNT 4 [facility] COMPLETE INC INC AUTO&AUTO DIFRNTL WBC NONINVASI 99264 [facility] L[facility] VE 4 [facility] EAR/PULSE INC INC OXIMETRY SINGLE DETER PRESSURIZ 73122 JESS[facility] ED/NONPRE 4 [facility] SSURIZED INC INC INHALATIO N TREATMENT THERAPEUT 36591 [facility] ACTVITY [facility] DIRECT PT INC INC CONTACT EACH 15 MIN PHYSICAL 39875 JESS[facility] THERAPY 4 [facility] EVALUATIO INC INC N BASIC 87299 JESS[facility] METABOLIC 4 [facility] PANEL [facility] G0378 [facility] OBSERVATI [facility] ON INC INC SERVICE PER HOUR COLLECTIO 86811 JESSICA [facility] N VENOUS [facility] BLOOD INC INC VENIPUNCT URE TX PROC G0238 [facility] IMPRV [facility] RESP INC INC FUNCT NOT G0237 [facility] G0378 [facility]ESS[facility] OBSERVATI [facility] ON INC INC SERVICE PER HOUR GUIDE C1769 [facility] WIRE [facility] INC INC CULTURE 99180 [facility] BACTERIAL [facility] INC INC QUANTTATI VE COLONY COUNT URINE CULTURE 53309 J[facility] BCT [facility] ISOL&PRSM INC INC PTV ID ISOLATE EA URINE FLUOROSCO 61857 JESSICA L[facility] PY SPX UP 4 [facility] TO 1 INC INC HOUR PHYS/QHP TIME RADIOLOGI 79967 [facility] C [facility] EXAMINATI INC INC ON ANKLE 2 VIEWS THERAPEUT 15224 JESSICA [facility] IC 4 [facility] INJECTION [facility] [place] [address] JESSICA [facility]Z INFUSION 4 [facility] THERAPY/P INC INC ROPHYLAXI S /DX 1ST TO 1 HR PRESSURIZ 15832 JESSICA LOPEZ ED/NONPRE 4 [facility] SSURIZED INC INC INHALATIO N TREATMENT NONINVASI 21179 JESSICA LOPEZ VE 4 [facility] EAR/PULSE INC [place] [address] JESSICA LOPEZ DISTAL 4 [facility] FIBULAR INC INC FRACTURE LAT MALLEOLUS GLUC BLD 48856 JESSICA [facility]OPEZ GLUC MNTR 4 [facility] DEV INC INC CLEARED FDA SPEC HOME USE SUSCEPTIB 83847 JESSICA LOPEZ LTY STDY 4 [facility] ANTIMICRB INC INC IAL MICRO/AGA R DILUTJ ANCHOR/SC C1713 JESS[facility] REW [facility] OPPOSING INC INC BN-TO-BN/ SOFT TISSUE-TO -BN URNLS DIP 42080 [facility] STICK/TAB INC INC LET REAGENT AUTO MICROSCOP Y RADIOLOGI 65318 JESSICA LOPEZ C EXAM 4 [facility] CHEST 2 INC INC VIEWS FRONTAL&L ATERAL ECG 49408 JESSICA LOPEZ ROUTINE 4 [facility] ECG INC INC W/LEAST 12 LDS TRCG ONLY W/O I&R RADEX 86407 JESSICA [facility] ANKLE 4 [facility] COMPLETE INC INC MINIMUM 3 VIEWS RADEX 82263 JESSICA [facility]OPEZ ANKLE 4 [facility] COMPLETE INC INC MINIMUM 3 VIEWS CLOSURE 86.59 Leanne MANZANO & Hawa COPELAND SUBCUTANE OUS NEC Encounters Encounter Start End Date Code Location Performer Type Date OFFICE 32108 [facility]PATIEN 5 5 [facility] 25 MINUTES OFFICE 93874 [facility] [place] [facility] [facility] INTERNAL 15 MED MINUTES OFFICE [address] [facility] OUTPATIEN 5 5 PHYSICIAN RAMONE T VISIT S GROUP 15 MINUTES [facility] - 5 5 [facility] OFFICE [address] [facility] PETTEY OUTPATIEN 5 5 PHYSICIAN JAM T VISIT S GROUP 25 MINUTES [facility]OSP[facility] JESSICA - 5 5 [facility] OFFICE [address] [facility] OUTPATIEN 5 5 PHYSICIAN RAMONE T NEW 45 S GROUP MINUTES OFFICE 68636 [facility] [place] [facility] T VISIT INTERNAL 15 MED MINUTES HOSPITAL MARYANN[facility]LAKIS[facility] - 5 5 [facility] JESSICA - 5 5 [facility] OFFICE 10677 [facility] [place] [facility] T [facility]ISIT INTERNAL 25 MED MINUTES [facility]OSP[facility] JESSICA - 5 5 [facility] OFFICE 02186 JESSICA HOWARD OUTPATIEN 5 5 [facility]ISIT [facility] 15 MINUTES EMERGENCY 50518 JESSICA 5 5 [facility] VISIT MODER[facility] SEVERITY [facility]PITAL JESSICA - 5 5 [facility] JESS[facility] - 5 5 [facility] JESSICA - 4 4 [facility] JESSICA [facility] 4 4 [facility] JESSICA [facility] 4 4 [facility] [address] [facility] - 4 4 [facility] EMERGENCY 52639 JESSICA 4 4 [facility] VISIT HIGH/URGE NT [facility] JESSICA [facility] 4 4 [facility] JESSICA - 4 4 [facility] - 4 4 [facility] PEND[facility] S[facility] Emergency VALERY Shaikh MD (ER) 3 20:50 3 21:50 [facility] Emergency VALERY Flowers MD (ER) 3 11:31 3 12:38 [facility] Emergency VALERY Shaikh MD (ER) 3 19:20 3 20:31 [facility] Inpatient OPAL Blanca (IN) 3 12:50 3 14:20 [facility] Inpatient OPAL Breaux MD (IN) 3 23:10 3 10:[address] [facility]
--- OUTSIDE RECORDS SUMMARY | 2017-02-03 21:05 | External Medical Summary Rpt | CCD ---
Author Author , DWIGHT QUINTANILLA Address Unknown Phone [email or web address] Care Team Providers Care [employer] Name Role Phone BOSTONJAMEELPAT HANNY, SIMONE Unavailable Unavailable HANNY KAM JYOTI, BESSON Unavailable Unavailable JYOTI SUSANNAH VAMSI, Unavailable Unavailable SUSANNAH VAMSI [facility] Unavailable Unavailable [facility]ENCY ON, [facility] Unavailable Unavailable AGENCY ON, [facility] ELIUD DOMENIC, Unavailable Unavailable ELIUD DOMENIC [facility] Unavailable Unavailable [place], [facility] [place] [facility] Unavailable Unavailable [facility], [facility] [place] FRYMAN EUG, FRYMAN Unavailable Unavailable EUG HAGENSCHREYES CHLOE, Unavailable Unavailable HAGENSCHNEIDER CHLOE [facility] Unavailable Unavailable INC, [facility] Unavailable Unavailable HOSPITAL P, [facility] P [facility], [facility]available Unavailable [facility], [facility] Unavailable [facility]available [facility], [facility] SMITH RAMONE, SMITH Unavailable Unavailable RAMONE RUFINO STYLES DWI, RUFINO Unavailable Unavailable JR DWI [facility] Unavailable Unavailable INTERNAL MED, [facility], Unavailable Unavailable [facility], Unavailable Unavailable [facility] Unavailable Unavailable [facility] Unavailable Unavailable MEDICAL, [facility] MEDICAL PETTEY JAM, PETTEY Unavailable Unavailable JAM [facility] Unavailable Unavailable SERVICES, [facility], Unavailable Unavailable [facility] Purpose Continuity of Care Document - 02-04-2014 through 2016 Problems Code Diagnosis DOS Provider Status J449 CHRONIC 02-24-2015 KAYA, OBSTRUCTIVE INC PULMONARY DISEASE UNS E119 TYPE 2 02-15-2015 DIABETIC DIABETES EXPERTS OF [facility] [place] WITHOUT COMPLICATIO NS [id number] DERMATOCHAL 01-31-2015 [place] [facility] EYE UNS INSTITUTE EYELID Z961 PRESENCE OF 01-31-2015 [facility] LENS J0100 ACUTE 01-28-2015 [facility] SINUSITIS INTERNAL UNSPECIFIED MED M722 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 [facility] FIBROMATOSI INTERNAL S MED I10 ESSENTIAL 01-20-2015 [facility] HYPERTENSIO AGENCY ON N 4280 CONGESTIVE 12-29-2014 [facility] FAILURE AGENCY ON UNSPECIFIED 428 HEART 12-28-2014 [facility] FAILURE TRACE AREA AGENCY ON 496 CHRONIC 12-25-2014 LINC[facility], AIRWAY INC OBSTRUCTION NEC 45486 ACUTE 12-16-2014 [facility] LARYNGITIS, PHYSICIANS WITHOUT GROUP MENTION OF OBSTRUCTIO 80201 UNSPEC 11-30-2014 [facility]ORDERS [facility] BURSAE&TEND INC ONS SHOULDER REGION 7262 OTHER 11-30-2014 [facility] AFFECTIONS [facility] OF SHOULDER INC REGION NEC V571 OTHER 11-30-2014 [facility] PHYSICAL [facility] THERAPY INC 7273 OTHER 11-26-2014 [facility] BURSITIS PHYSICIANS DISORDERS GROUP 36258 PAIN IN 11-18-2014 [place] [facility], MEDICAL SHOULDER IMAGING ASS REGION 05797 DIAB W/O 11-17-2014 DIABETIC COMP TYPE EXPERTS OF II/UNS NOT [place] STATED UNCNTRL 99088 HYPERTENSIV 11-14-2014 [facility] HEART [facility] DISEASE [facility] P UNSPEC W/HEART FAIL 07512 OBST 11-14-2014 [facility] BRONCHITIS [facility] P W/ACUTE BRONCHITIS 5939 UNSPECIFIED 11-14-2014 [facility] KIDNEY [facility] P AND URETER 81916 CHEST PAIN 11-14-2014 [place] U[facility]PECIFIED [facility] 250 DIABETES 11-04-2014 [facility] MELLITUS TRACE AREA AGENCY ON 4760 CHRONIC 10-30-2014 [facility] LARYNGITIS PHYSICIANS GROUP 4784 POLYP OF 10-30-2014 [facility] VOCAL CORD PHYSICIANS OR LARYNX GROUP 7099 UNSPECIFIED 10-30-2014 [facility] DISORDER PHYSICIANS OF GROUP SKIN&SUBCUT ANEOUS TISSUE 3572 POLYNEUROPA 09-28-2014 [facility] IN [facility] DIABETES INTERNAL MED 19557 ASTHMA, 09-28-2014 [facility] UNSPECIFIED VALLEY , INTERNAL UNSPECIFIED MED STATUS V7612 OTHER 07-20-2014 [facility] SCRE[facility]IONAL MAMMOGRAM MEDICAL 7862 COUGH 07-09-2014 [facility] 3384 CHRONIC 07-07-2014 [facility] PAIN [facility]LEY SYNDROME INTERNAL MED 94399 DYSPHONIA 07-07-2014 [facility] INTERNAL MED 7906 OTHER 07-07-2014 [facility] ABNORMAL [facility] BLOOD INC CHEMISTRY 36437 GOUTY 06-03-2014 [facility] ARTHROPATHY [facility] INC UNSPECIFIED 4019 UNSPECIFIED 06-03-2014 [facility] ESSENTIAL [facility] HYPERTENSIO INC N 22962 PAIN IN 06-03-2014 [place] [facility], MEDICAL FOREARM IMAGING ASS V1582 PERS HX 06-03-2014 [facility] TOBACCO USE [facility] PRESENTING INC [facility] 01382 SOLITARY 05-05-2014 [facility] PULMONARY [facility] NODULE INC V5878 AFTERCARE 04-01-2014 [facility] FOLLOW [facility] SURGERY INC MUSCULOSKEL SYSTEM NEC V5416 AFTERCARE 03-10-2014 [facility] HEALING [facility] TRAUMATIC INC FRACTURE LOWER LEG 2724 OTHER AND 03-02-2014 [facility] HYPERLIPIDE POLLY 3569 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 [facility] OPATHI PERIPHERAL NEUROPATHY 97746 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 [facility] OSIS [place] CORONARY ARTERY 25430 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 [facility] 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 99952 ESOPHAGEAL 03-02-2014 [facility] 14038 DEHYDRATION 02-19-2014 [facility] INC 4589 UNSPECIFIED 02-19-2014 [facility] HYPOTENSION INC 7802 SYNCOPE AND 02-19-2014 [facility] COLLAPSE [facility] INC 90718 SHORTNESS 02-19-2014 [facility] OF BREATH [facility] INC V1090 PERSONAL 02-19-2014 [facility] HISTORY [facility] UNSPECIFIED INC MALIGNANT NEOPLASM V1254 PERSONAL HX 02-19-2014 [facility] TIA & CI [facility] W/O INC RESIDUAL DEFICITS 87503 MORBID 02-16-2014 [facility] OBESITY [facility] INC 5990 URINARY 02-16-2014 [facility] TRACT [facility] INFECTION INC SITE NOT SPECIFIED 65807 MALUNION OF 02-16-2014 [facility] FRACTURE [facility] [...] PORT 5 INC INC 85%/>02 [facility] AT [facility] FLW RATE PRTBLE E0431 KAYA KIRKPATRICK, [...] [facility] [facility] ADMN SET A7003 KAYA KIRKPATRICK, SM VOL 5 INC INC NONFILTR PNEUMAT NEBULIZR DISPBL PHRM Q0513 [facility] RELIANT DISPENSIN 5 PHARMACY PHARMACY G FEE SERVICES SERVICES INHALATIO N RX; PER 30 DAYS ALBUTEROL J7620 RELIANT RELIANT TO 2.5 5 PHARMACY PHARMACY MG & SERVICES SERVICES IPRATROPI UM BROM TO 0.5 MG O2 CONC 1 E1390 [facility] DEL PORT 5 INC INC 85%/>02 CONC AT PRSC FLW RATE PRTBLE E0431 [facility], GASEOUS 5 INC INC O2 SYS RENT; FLWMTR HUMIDFR&M ASK PHRM Q0513 RELIANT RELIANT DISPENSIN 5 PHARMACY PHARMACY G FEE SERVICES SERVICES INHALATIO N RX; PER 30 DAYS ALBUTEROL J7620 RELIANT RELIANT TO 2.5 5 PHARMACY PHARMACY MG & SERVICES SERVICES IPRATROPI UM BROM TO 0.5 MG MISC TX T1999 [facility] ITEMS & 5 TRACE TRACE SPL AREA AREA RETAIL AGENCY ON AGENCY ON PURCHASE NOC HOME CARE S5108 [facility] TRAINING 5 TRACE TRACE HOME AREA AREA CARE AGENCY ON AGENCY ON CLIENT PER 15 MIN PRTBLE E0431 [facility] GASE[facility] 5 INC INC O2 SYS RENT; FLWMTR HUMIDFR&M ASK O2 CONC 1 E1390 [facility] DEL PORT 5 INC INC 85%/>02 CONC AT PRS FLW RATE HOME CARE S5108 [facility] TRAINING 5 TRACE TRACE HOME AREA AREA CARE AGENCY ON AGENCY ON CLIENT PER 15 MIN MISC TX T1999 [facility] ITEMS & 5 TRACE TRACE SPL AREA AREA RETAIL AGENCY ON AGENCY ON PURCHASE NOC PHYSICAL 57883 [facility] THERAPY 5 [facility] EVALUATIO INC INC N THERAPEUT 30462 J[facility]ICA LOPEZ IC PX 1/> 5 [facility] AREAS INC INC EACH 15 MIN EXERCISES HOME CARE S5108 [facility] TRAINING 5 TRACE TRACE HOME AREA AREA CARE AGENCY ON AGENCY ON CLIENT PER 15 MIN PRTBLE E0431 [facility], [facility] GASE[facility] 5 INC INC O2 SYS RENT; FLWMTR HUMIDFR&M ASK O2 CONC 1 E1390 [facility], [facility] DEL PORT 5 INC INC 85%/>02 [facility] AT [facility] FLW RATE PHRM Q0513 RELIANT RELIANT DISPENSIN 5 PHARMACY PHARMACY G FEE SERVICES SERVICES INHALATIO N RX; PER 30 DAYS ALBUTEROL J7620 RELIANT RELIANT TO 2.5 5 PHARMACY PHARMACY MG & SERVICES SERVICES IPRATROPI UM BROM TO 0.5 MG RADEX 85319 J[facility]ICA LOPEZ SHOULDER 5 [facility] COMPLETE INC INC MINIMUM 2 VIEWS MISC TX T1999 [facility] ITEMS & 5 TRACE TRACE SPL AREA AREA RETAIL AGENCY ON [place] N[place] PO A4258 DIABETIC DIABETIC WERED 5 EXPERTS EXPERTS [...] OF HOME BLD [facility] GLU MON-50 HOME CARE S5108 [facility] TRAINING 5 TRACE TRACE HOME AREA AREA CARE AGENCY ON AGENCY ON CLIENT PER 15 MIN ECG 82281 J[facility]ICA JOY JR ROUTINE 5 [facility] W/LEAST P 12 LDS I&R ONLY RADIOLOGI 19138 KENDRA NICHOLS C EXAM 5 MEDICAL HANNY CHEST 2 IMAGING VIEWS ASS FRONTAL&L ATERAL HOME CARE S5108 [facility] 5 TRACE TRACE HOME AREA AREA CARE AGENCY ON AGENCY ON CLIENT PER 15 MIN ALBUTEROL J7620 RELIANT RELIANT TO 2.5 5 PHARMACY PHARMACY MG & SERVICES SERVICES IPRATROPI UM BROM TO 0.5 MG PHRM Q0513 RELIANT RELIANT DISPENSIN 5 PHARMACY PHARMACY G FEE SERVICES SERVICES INHALATIO N RX; PER 30 DAYS ADMN SET A7005 [facility], W/SM VOL 5 INC INC NONFILTR NEBULIZR NON-DISPB L PRTBLE E0431 [facility], GASEOUS 5 INC INC O2 SYS RENT; FLWMTR HUMIDFR&M ASK O2 CONC 1 E1390 [facility], DEL PORT 5 INC INC 85%/>02 CONC AT PRSC FLW RATE HOME CARE S5108 [facility] 5 TRACE TRACE HOME AREA AREA CARE AGENCY ON AGENCY ON CLIENT PER 15 MIN MISC TX T1999 [facility] ITEMS & 5 TRACE TRACE SPL AREA AREA RETAIL AGENCY ON AGENCY ON PURCHASE NOC HOME CARE S5108 [facility] 5 TRACE TRACE HOME AREA AREA CARE AGENCY ON AGENCY ON CLIENT PER 15 MIN O2 CONC 1 E1390 [facility], DEL PORT 5 INC INC 85%/>02 CONC AT PRSC FLW RATE PRTBLE E0431 [facility], GASEOUS 5 INC INC O2 SYS RENT; FLWMTR HUMIDFR&M ASK PHRM Q0513 RELIANT RELIANT DISPENSIN 5 PHARMACY PHARMACY G FEE SERVICES SERVICES INHALATIO N RX; PER 30 DAYS ALBUTEROL J7620 RELIANT RELIANT TO 2.5 5 PHARMACY PHARMACY MG & SERVICES SERVICES IPRATROPI UM BROM TO 0.5 MG HOME CARE S5108 [facility] 5 TRACE TRACE HOME AREA AREA CARE AGENCY ON AGENCY ON CLIENT PER 15 MIN MISC TX T1999 [facility] ITEMS & 5 TRACE TRACE SPL AREA AREA RETAIL AGENCY ON AGENCY ON PURCHASE NOC MISC TX T1999 [facility] ITEMS & 5 TRACE TRACE SPL AREA AREA RETAIL AGENCY ON AGENCY ON PURCHASE NOC HOME CARE S5108 [facility] TRAINING 5 TRACE TRACE HOME AREA [...] O2 CONC 1 E1390 [facility] PORT 5 INC INC 85%/>02 CONC AT PRSC FLW RATE HOME CARE S5108 [facility] TRAINING 5 TRACE TRACE HOME AREA AREA CARE AGENCY ON AGENCY ON CLIENT PER 15 MIN HOME CARE S5108 [facility] TRAINING 5 TRACE TRACE HOME AREA AREA CARE AGENCY ON AGENCY ON CLIENT PER [address] [facility] 5 EIDER CHLOE MAMMOGRAP RADIOLOGY HY NIESHA ASSOCIAT INCL CAD WHEN PERFORMD COMPUTER- 91095 [facility] 5 DETECTION RADIOLOGY RADIOLOGY ASSOCIAT ASSOCIAT SCREENING MAMMOGRAP HY HOME CARE S5108 [facility] TRAINING 5 TRACE TRACE HOME AREA AREA CARE AGENCY ON AGENCY ON CLIENT PER 15 MIN RADIOLOGI 73872 [place] [facility] C EXAM 5 MEDICAL DOMENIC CHEST 2 IMAGING VIEWS ASS FRONTAL&L ATERAL BLOOD 60626 [facility] COUNT 5 [facility] COMPLETE INC INC AUTO&AUTO DIFRNTL WBC HEMOGLOBI 96487 [facility] N 5 [facility] GLYCOSYLA INC INC JULIANNE A1C CYANOCOBA 78185 [facility]Z MATT 5 [facility] VITAMIN INC INC B-12 LIPID 81815 [facility] L[facility] PANEL 5 [facility] INC INC COLLECTIO 74572 J[facility]ICA LOPEZ N VENOUS 5 [facility] BLOOD INC INC VENIPUNCT URE COMPREHEN 16129 J[facility] L[facility] SIVE 5 [facility] METABOLIC INC INC PANEL MISC TX T1999 [facility] ITEMS & 5 TRACE TRACE SPL AREA AREA RETAIL AGENCY ON AGENCY ON PURCHASE NOC MISC TX T1999 [facility] ITEMS & 5 TRACE TRACE SPL AREA AREA RETAIL AGENCY ON AGENCY ON PURCHASE NOC HOME CARE S5108 [facility] TRAINING 5 TRACE TRACE HOME AREA AREA CARE AGENCY ON AGENCY ON CLIENT PER 15 MIN HOME CARE S5108 [facility] TRAINING 5 TRACE TRACE HOME AREA AREA CARE AGENCY ON AGENCY ON CLIENT PER 15 MIN RADIOLOGI 08056 KENDRA KLINE C EXAM 5 MEDICAL DOMENIC CHEST 2 IMAGING VIEWS ASS FRONTAL&L ATERAL RADEX 01327 KENDRA BUSBYUTCHER WRIST 5 MEDICAL DOMENIC COMPLETE IMAGING MINIMUM 3 ASS VIEWS APPLICATI 23397 JESSICA LOPEZ ON SHORT 5 [facility] ARM INC INC SPLINT FOREARM-H AND STATIC CT THORAX 00795 JESSICA LOPEZ W/O 5 [facility]OSP CONTRAST INC INC MATERIAL RADEX 28309 JESSICA LOPEZ ANKLE 4 [facility] COMPLETE INC INC MINIMUM 3 VIEWS RADEX 96076 [facility] ANKLE 4 [facility] COMPLETE INC INC MINIMUM 3 VIEWS RADEX 82678 JESSICA LOPEZ ANKLE 4 [facility] COMPLETE INC INC MINIMUM 3 VIEWS BLOOD [address] HEMATOCRI T BASIC [address] PANEL CALCIUM IONIZED BLOOD [address] PLATELET AUTOMATED CATHETER C[address] NAL ANGIOPLAS TY NON-LASER CATH PLMT [address] [facility] & [address] [place] [address] ARTS W/NJX & ANGIO IMG S&I CATHETER C[address] NONINVASI 99715 JESSICA LOPEZ VE 4 [facility] EAR/PULSE INC INC OXIMETRY SINGLE DETER PRESSURIZ 32365 JESSICA LOPEZ ED/NONPRE 4 [facility] SSURIZED INC INC INHALATIO N TREATMENT GLUC BLD 41222 JESSICA LOPEZ GLUC MNTR 4 [facility] DEV INC INC CLEARED FDA SPEC HOME USE BLOOD 84872 [facility] L[facility]Z COUNT 4 [facility] COMPLETE INC INC AUTO&AUTO DIFRNTL WBC BASIC 70749 J[facility]ICA L[facility]Z METABOLIC 4 [facility] PANEL INC INC CALCIUM TOTAL COLLECTIO 27758 J[facility]ICA L[facility]Z N VENOUS 4 [facility] BLOOD INC INC VENIPUNCT URE HOSPITAL G0378 JESSICA LOPEZ OBSERVATI 4 [facility] ON INC INC SERVICE PER HOUR COMPREHEN 33900 JESSICA LOPEZ SIVE 4 [facility] METABOLIC INC INC PANEL HOSPITAL G0378 JESSICA LOPEZ OBSERVATI 4 [facility] ON INC INC SERVICE PER HOUR RADIOLOGI 71760 J[facility]ICA LOPEZ C 4 [facility] EXAMINATI INC INC ON CHEST SINGLE VIEW FRONTAL NONINVASI 42402 [facility] L[facility]Z VE 4 [facility] EAR/PULSE [place] [address] JESSICA LOPEZ INFUSION 4 [facility] THERAPY/P INC INC ROPHYLAXI S /DX 1ST TO 1 HR NATRIURET 69840 [facility] L[facility] IC 4 [facility] [place] [address] JESSICA LOPEZ TROPONIN 4 [facility] QUANTITAT INC INC MARINE BLOOD 91402 J[facility]ICA LOPEZ COUNT 4 [facility] COMPLETE INC INC AUTO&AUTO DIFRNTL WBC GLUC BLD 97388 J[facility]ICA LOPEZ GLUC MNTR 4 [facility] DEV INC INC CLEARED FDA SPEC HOME USE URNLS DIP 39460 [facility]Z 4 [facility] STICK/TAB INC INC LET REAGENT AUTO MICROSCOP Y PRESSURIZ 84201 JESSICA LOPEZ ED/NONPRE 4 [facility] SSURIZED INC INC INHALATIO N TREATMENT ECG 01054 J[facility]ICA LOPEZ ROUTINE 4 [facility] ECG INC INC W/LEAST 12 LDS TRCG ONLY W/O I&[place] [address] JESSICA LOPEZ LIPASE 4 [facility] INC INC PRESSURIZ 17477 JESSICA LOPEZ ED/NONPRE 4 [facility] SSURIZED INC INC INHALATIO N TREATMENT PHYSICAL 15184 [facility] L[facility]Z THERAPY 4 [facility] EVALUATIO INC INC N BLOOD 87251 J[facility]ICA LOPEZ COUNT 4 [facility] COMPLETE INC INC AUTO&AUTO DIFRNTL WBC NONINVASI 18159 [facility] L[facility] VE 4 [facility] EAR/PULSE INC INC OXIMETRY SINGLE DETER THERAPEUT 32882 [facility]ICA L[facility] ACTVITY 4 [facility] DIRECT PT INC INC CONTACT EACH 15 MIN BASIC 22490 J[facility] L[facility]Z METABOLIC 4 [facility] PANEL INC INC CALCIUM TOTAL COLLECTIO 34364 JESSICA LOPEZ N VENOUS 4 [facility] BLOOD INC INC VENIPUNCT [facility] G0378 JESSICA LOPEZ OBSERVATI 4 [facility] ON INC INC SERVICE [facility] G0378 [facility] L[facility]Z OBSERVATI 4 [facility] ON INC INC SERVICE PER HOUR FLUOROSCO 80171 JESSICA LOPEZ PY SPX UP 4 [facility] TO 1 INC INC HOUR PHYS/QHP TIME TX PROC G0238 [facility] IMPRV 4 [facility] RESP INC INC FUNCT NOT G0237 FCE-FCE 15MIN GUIDE C1769 J[facility] WIRE 4 [facility] INC INC CULTURE 72369 [facility] L[facility] BACTERIAL 4 [facility] INC INC QUANTTATI VE COLONY COUNT URINE CULTURE 24541 [facility] L[facility] BCT 4 [facility] ISOL&PRSM [place] [address] JESSICA LOPEZ INFUSION 4 [facility] THERAPY/P INC INC ROPHYLAXI S /DX 1ST TO 1 HR THERAPEUT 57524 [facility] L[facility] IC 4 [facility] INJECTION INC INC IV PUSH EACH NEW DRUG GLUC BLD 09928 JESSICA LOPEZ GLUC MNTR 4 [facility] DEV INC INC CLEARED FDA SPEC HOME USE URNLS DIP 91678 [facility]Z 4 [facility] STICK/TAB INC INC LET REAGENT AUTO MICROSCOP Y NONINVASI 71429 [facility] L[facility]Z VE 4 [facility] EAR/PULSE INC INC OXIMETRY SINGLE DETER PRESSURIZ 61788 J[facility]ICA L[facility] ED/NONPRE 4 [facility] SSURIZED INC INC INHALATIO N TREATMENT SUSCEPTIB 90325 JESSICAMARLENY LOPEZ LTY STDY 4 [facility] ANTIMICRB INC INC IAL MICRO/AGA R DILUTJ ANCHOR/SC C1713 [facility] REW 4 [facility] OPPOSING INC INC BN-TO-BN/ [place] [address] JESSICA LOPEZ DISTAL 4 [facility] FIBULAR INC INC FRACTURE LAT MALLEOLUS RADIOLOGI 79693 J[facility]ICA [facility]OPEZ C 4 [facility] EXAMINATI INC INC ON ANKLE 2 VIEWS ECG 45433 J[facility] L[facility]Z ROUTINE 4 [facility] ECG INC INC W/LEAST 12 LDS TRCG ONLY W/O I&R RADIOLOGI 59107 JESSICA LOPEZ C EXAM 4 [facility] CHEST 2 INC INC VIEWS FRONTAL&L ATERAL RADEX 69678 J[facility] ANKLE 4 [facility] COMPLETE INC INC MINIMUM 3 VIEWS RADEX 85265 J[facility] L[facility]Z ANKLE 4 [facility] COMPLETE INC INC MINIMUM 3 VIEWS Encounters Encounter Start End Date Code Location Performer Type Date OFFICE 82130 [facility] OUTPATIEN 5 5 [facility] 25 MINUTES OFFICE 65595 [facility] OUTPATIEN 5 5 [facility] JYOTI T VISIT INTERNAL 15 MED MINUTES OFFICE 76059 [facility] SMITH OUTPATIEN 5 5 PHYSICIAN RAMONE T VISIT S GROUP 15 MINUTES HOSPITAL JESSICA - 5 5 [facility] OUTPATIEN INC T OFFICE 53364 [facility] PETTEY OUTPATIEN 5 5 PHYSICIAN JAM T VISIT S GROUP 25 MINUTES HOSPITAL JESSICA - 5 5 [facility] OUTPATIEN [facility] OFFICE 10616 [facility] SMITH OUTPATIEN 5 5 PHYSICIAN RAMONE T NEW 45 S GROUP MINUTES OFFICE 75798 [facility] BESSON OUTPATIEN 5 5 [facility] VISIT INTERNAL 15 MED MINUTES HOSPITAL JOSE LUIS - 5 5 [facility] - 5 5 [facility] OUTPATI[facility] OFFICE 59501 [facility] BESSON OUTPATIEN 5 5 [facility] T [facility]ISIT INTERNAL 25 MED MINUTES HOSPITAL JESSICA - 5 5 [facility] OUTPATIEN [facility] OFFICE 14547 JESSICA HOWARD OUTPATIEN 5 5 [facility] VISIT HOSPITAL 15 MINUTES EMERGENCY 66830 JESSICA 5 5 [facility]MEN [facility] T VISIT MODERATE SEVERITY HOSPITAL JESSICA - 5 5 [facility]IEN [facility] JESSICA - 5 5 [facility] JESSICA - 4 4 [facility] JESSICA - 4 4 [facility] JESSICA - 4 4 [facility] [place] [address] [address] [facility] OUT[facility]IEN [facility] EMERGENCY 64420 JESSICA 4 4 [facility]PARTMEN [facility] T VISIT HIGH/URGE NT SEVERITY HOSPITAL J[place] [facility] 4 4 [facility] OUTPATIEN [facility] JESSICA [facility] 4 4 [facility] JESSICA - 4 4 [facility]
--- OUTSIDE RECORDS SUMMARY | 2017-02-03 21:05 | External Medical Summary Rpt | CCD ---
Demographics Preferred Language Ukrainian Marital Status Unknown Denominational Affiliation Unknown Race Unknown Ethnic Group Unknown Author Author , [facility] Organization [facility] Address Unknown Phone Immunization Unable to retrieve immunization data due to connection failure with Immunization Registry. Please try again later.
--- OUTSIDE RECORDS SUMMARY | 2017-02-03 21:05 | External Medical Summary Rpt | CCD ---
Author Author , DWIGHT QUINTANILLA Address Unknown Phone [email or web address] Care Team Providers Care Flap Presser Name Role Phone BOSTONJAMEELPAT HANNY, SIMONE Unavailable Unavailable HANNY KAM JYOTI, BESSON Unavailable Unavailable JYOTI SUSANNAH [facility], Unavailable Unavailable SUSANNAH V[facility] Unavailable Unavailable [facility], [facility] Unavailable Unavailable [facility], [facility] ELIUD DOMENIC, Unavailable Unavailable ELIUD DOMENIC [facility] Unavailable Unavailable [facility] Unavailable Unavailable [facility] FRYMAN EUG, FRYMAN Unavailable Unavailable EUG HAGENSCHREYES CHLOE, Unavailable Unavailable HAGENSCHNEIDER CHLOE [facility] Unavailable Unavailable INC, [facility] Unavailable Unavailable H[facility]PITAL P, [facility], [facility]available Unavailable [facility], [facility] Un[facility], [facility] SMITH RAMONE, SMITH Unavailable Unavailable RAMONE RUFINO STYLES DWI, RUFINO Unavailable Unavailable JR DWI [facility] Unavailable Unavailable INTERNAL MED, [facility], Unavailable Unavailable [facility] Unavailable Unavailable [facility] Un[facility] Unavailable Unavailable MEDICAL, [facility] PETTEY JAM, PETTEY Unavailable Unavailable JAM [facility] Unavailable Unavailable SERVICES, [facility], Unavailable Unavailable [facility] Purpose Continuity of Care Document - 02-04-2014 through 2016 Problems Code Diagnosis DOS Provider Status J449 CHRONIC 02-24-2015 [facility], OBSTRUCTIVE INC PULMONARY DISEASE UNS E119 TYPE 2 02-15-2015 DIABETIC DIABETES EXPERTS OF [facility] [place] WITHOUT COMPLICATIO NS [id number] DERMATOCHAL 01-31-2015 [place] [facility] E[facility] UNS INSTITUTE EYELID Z961 PRESENCE OF 01-31-2015 [facility] LENS J0100 ACUTE 01-28-2015 [facility] SINUSITIS INTERNAL UNSPECIFIED MED M722 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 [facility] [facility] FIBROMATOSI INTERNAL S MED I10 ESSENTIAL 01-20-2015 [facility] HYPERTENSIO AGENCY ON N 4280 CONGESTIVE 12-29-2014 [facility] FAILURE AGENCY ON UNSPECIFIED 428 HEART 12-28-2014 [facility] FAILURE TRACE AREA AGENCY ON 496 CHRONIC 12-25-2014 [facility], AIRWAY INC OBSTRUCTION NEC 84291 ACUTE 12-16-2014 [facility] LARYNG[facility], PHYSICIANS WITHOUT GROUP MENTION OF OBSTRUCTIO 82278 UNSPEC 11-30-2014 [facility]ORDERS [facility] BURSAE&TEND INC ONS SHOULDER REGION 7262 OTHER 11-30-2014 [facility] AFFECTIONS [facility] OF SHOULDER INC REGION NEC V571 OTHER 11-30-2014 [facility] PHYSICAL [facility] THERAPY INC 7273 OTHER 11-26-2014 [facility] BURSITIS PHYSICIANS DISORDERS GROUP 01506 PAIN IN 11-18-2014 [place] [facility], MEDICAL SHOULDER IMAGING ASS REGION 83668 DIAB W/O 11-17-2014 DIABETIC COMP TYPE EXPERTS OF II/UNS NOT [place] STATED UNCNTRL 09866 HYPERTENSIV 11-14-2014 [facility] UNSPEC W/HEART FAIL 93609 OBST 11-14-2014 [facility]IS [facility] W/ACUTE BRONCHITIS 5939 UNSPECIFIED 11-14-2014 [facility]NEY [facility] AND URETER 68868 CHEST PAIN 11-14-2014 [place] UNSPECIFIED [facility]ING ASS 250 DIABETES 11-04-2014 [facility] MELLITUS TRACE AREA AGENCY ON 4760 CHRONIC 10-30-2014 [facility] LARYNG[facility] PHYSICIANS GROUP 4784 POLYP OF 10-30-2014 [facility] VOCAL CORD PHYSICIANS OR LARYNX GROUP 7099 UNSPECIFIED 10-30-2014 [facility] DISORDER PHYSICIANS OF GROUP SKIN&SUBCUT ANEOUS TISSUE 3572 POLYNEUROPA 09-28-2014 [facility] [place] IN [facility] DIABETES INTERNAL MED 87222 ASTHMA, 09-28-2014 [facility] UNSPECIFIED VALLEY , INTERNAL UNSPECIFIED MED STATUS V7612 OTHER 07-20-2014 [facility] SCREENING REGIONAL MAMMOGRAM MEDICAL 7862 COUGH 07-09-2014 [facility] 3384 CHRONIC 07-07-2014 [facility] PAIN [place]LEY SYNDROME INTERNAL MED 53205 DYSPHONIA 07-07-2014 [facility] INTERNAL MED 7906 OTHER 07-07-2014 [facility] ABNORMAL [facility] BLOOD INC CHEMISTRY 78175 GOUTY 06-03-2014 [facility] ARTHROPATHY [facility] INC UNSPECIFIED 4019 UNSPECIFIED 06-03-2014 [facility] ESSENTIAL [facility] HYPERTENSIO INC N 40070 PAIN IN 06-03-2014 [place] [facility], MEDICAL FOREARM IMAGING ASS V1582 PERS HX 06-03-2014 [facility] TOBACCO USE [facility] PRESENTING INC [facility] 21952 SOLITARY 05-05-2014 [facility] PULMONARY [facility] NODULE INC V5878 AFTERCARE 04-01-2014 [facility] FOLLOW [facility] SURGERY INC MUSCULOSKEL SYSTEM NEC V5416 AFTERCARE 03-10-2014 [facility] HEALING [facility] TRAUMATIC INC FRACTURE LOWER LEG 2724 OTHER AND 03-02-2014 [facility] HYPERLIPIDE POLLY 3569 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 [facility] OPATHI PERIPHERAL NEUROPATHY 37333 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 [facility] [place] CORONARY ARTERY 77158 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 [facility] 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 73695 ESOPHAGEAL 03-02-2014 [facility] 14397 DEHYDRATION 02-19-2014 [facility] INC 4589 UNSPECIFIED 02-19-2014 [facility] HYPOTENSION INC 7802 SYNCOPE AND 02-19-2014 [facility] COLLAPSE [facility] INC 80735 SHORTNESS 02-19-2014 [facility] OF BREATH [facility] INC V1090 PERSONAL 02-19-2014 [facility] HISTORY [facility] UNSPECIFIED INC MALIGNANT NEOPLASM V1254 PERSONAL HX 02-19-2014 [facility] TIA & CI [facility] W/O INC RESIDUAL DEFICITS 19039 MORBID 02-16-2014 [facility] OBESITY [facility] INC 5990 URINARY 02-16-2014 [facility] TRACT [facility] INFECTION INC SITE NOT SPECIFIED 49547 MALUNION OF 02-16-2014 [facility] FRACTURE [facility] [...] TO 0.5 MG O2 CONC 1 E1390 [facility] DEL PORT 5 INC INC 85%/>02 CONC AT PRSC FLW RATE PRTBLE E0431 [facility], GASEOUS 5 INC INC O2 SYS RENT; FLWMTR HUMIDFR&M ASK PHRM Q0513 [facility] DISPENSIN 5 PHARMACY PHARMACY G FEE SERVICES SERVICES INHALATIO N RX; PER 30 DAYS ALBUTEROL J7620 RELIANT RELIANT TO 2.5 5 PHARMACY PHARMACY MG & SERVICES SERVICES IPRATROPI UM BROM TO 0.5 MG MISC TX T1999 [facility] ITEMS & 5 TRACE TRACE SPL AREA AREA RETAIL AGENCY ON AGENCY ON PURCHASE NOC HOME CARE S5108 [facility] TRAINING 5 TRACE TRACE HOME AREA AREA CARE AGENCY ON AGENCY ON CLIENT PER 15 MIN PRTBLE E0431 [facility] GASEOUS 5 INC INC O2 SYS RENT; FLWMTR HUMIDFR&M ASK O2 CONC 1 E1390 [facility] DEL [facility] 5 INC INC 85%/>02 CONC AT PRS FLW RATE HOME CARE S5108 [facility] TRAINING 5 TRACE TRACE HOME AREA AREA CARE AGENCY ON AGENCY ON CLIENT PER 15 MIN MISC TX T1999 [facility] ITEMS & 5 TRACE TRACE SPL AREA AREA RETAIL AGENCY ON AGENCY ON PURCHASE NOC PHYSICAL 13579 [facility] THERAPY 5 [facility] EVALUATIO INC INC N THERAPEUT 03705 JESSICA LOPEZ IC PX 1/> 5 [facility] AREAS INC INC EACH 15 MIN EXERCISES HOME CARE S5108 [facility] TRAINING 5 TRACE TRACE HOME AREA AREA CARE AGENCY ON AGENCY ON CLIENT PER 15 MIN PRTBLE E0431 [facility], [facility], GASEOUS 5 INC INC O2 SYS RENT; FLWMTR HUMIDFR&M ASK O2 CONC 1 E1390 [facility], [facility], DEL PORT 5 INC INC 85%/>02 CONC AT [facility] FLW RATE PHRM Q0513 RELIANT RELIANT DISPENSIN 5 PHARMACY PHARMACY G FEE SERVICES SERVICES INHALATIO N RX; PER 30 DAYS ALBUTEROL J7620 RELIANT RELIANT TO 2.5 5 PHARMACY PHARMACY MG & SERVICES SERVICES IPRATROPI UM BROM TO 0.5 MG RADEX 80282 [facility] LOPEZ SHOULDER 5 [facility] COMPLETE INC INC MINIMUM 2 VIEWS MISC TX T1999 [facility] ITEMS & 5 TRACE TRACE [...] [facility] GLU MON-50 HOME CARE S5108 [facility] TRAINING 5 TRACE TRACE HOME AREA AREA CARE AGENCY ON AGENCY ON CLIENT PER 15 MIN ECG 82229 [facility] JOY JR ROUTINE 5 [facility], INC W/LEAST P 12 LDS I&R ONLY RADIOLOGI 01394 KENDRA NICHOLS C EXAM 5 MEDICAL HANNY CHEST 2 IMAGING VIEWS ASS FRONTAL&L ATERAL HOME CARE S5108 [facility] 5 TRACE TRACE HOME AREA AREA CARE AGENCY ON AGENCY ON CLIENT PER 15 MIN ALBUTEROL J7620 RELIANT RELIANT TO 2.5 5 PHARMACY PHARMACY MG & SERVICES SERVICES IPRATROPI UM BROM TO 0.5 MG PHRM Q0513 RELIANT RELIANT DISPENSIN 5 PHARMACY PHARMACY G FEE SERVICES SERVICES INHALATIO N RX; PER 30 DAYS ADMN SET A7005 [facility], W/SM VOL 5 INC INC NONFILTR NEBULIZR NON-DISPB L PRTBLE E0431 [facility], GASEOUS 5 INC INC O2 SYS RENT; FLWMTR HUMIDFR&M ASK O2 CONC 1 E1390 [facility], DEL PORT 5 INC INC 85%/>02 CONC AT PRSC FLW RATE HOME CARE S5108 [facility] 5 TRACE TRACE HOME AREA AREA CARE AGENCY ON AGENCY ON CLIENT PER 15 MIN MISC TX T1999 [facility] ITEMS & 5 TRACE TRACE SPL AREA AREA RETAIL AGENCY ON AGENCY ON PURCHASE NOC HOME CARE S5108 [facility] 5 TRACE TRACE HOME AREA AREA CARE AGENCY ON AGENCY ON CLIENT PER 15 MIN O2 CONC 1 E1390 [facility], DEL PORT 5 INC INC 85%/>02 CONC AT PRSC FLW RATE PRTBLE E0431 [facility], GASEOUS 5 INC INC O2 SYS RENT; FLWMTR HUMIDFR&M ASK PHRM Q0513 RELIANT RELIANT DISPENSIN 5 PHARMACY PHARMACY G FEE SERVICES SERVICES INHALATIO N RX; PER 30 DAYS ALBUTEROL J7620 RELIANT RELIANT TO 2.5 5 PHARMACY PHARMACY MG & SERVICES SERVICES IPRATROPI UM BROM TO 0.5 MG HOME CARE S5108 [facility] 5 TRACE TRACE HOME AREA AREA CARE AGENCY ON AGENCY ON CLIENT PER 15 MIN MISC TX T1999 [facility] ITEMS & 5 TRACE TRACE SPL AREA AREA RETAIL AGENCY ON AGENCY ON PURCHASE NOC MISC TX T1999 [facility] ITEMS & 5 TRACE TRACE SPL AREA AREA RETAIL AGENCY ON AGENCY ON PURCHASE NOC HOME CARE S5108 [facility] TRAINING 5 TRACE TRACE HOME AREA AREA CARE AGENCY ON AGENCY ON CLIENT PER 15 MIN ALBUTEROL J7620 RELIANT RELIANT TO 2.5 5 PHARMACY PHARMACY MG & SERVICES SERVICES IPRATROPI UM BROM TO 0.5 MG PHRM Q0513 RELIANT RELIANT DISPENSIN 5 PHARMACY PHARMACY G FEE SERVICES SERVICES INHALATIO N RX; PER 30 DAYS PRTBLE E0431 [facility], [facility], GASEOUS 5 INC INC O2 SYS RENT; FLWMTR HUMIDFR&M ASK O2 CONC 1 E1390 [facility] INC 85%/>02 CONC AT PRSC FLW RATE HOME CARE S5108 [facility] TRAINING 5 TRACE TRACE HOME AREA AREA CARE AGENCY ON AGENCY ON CLIENT PER 15 MIN HOME CARE S5108 [facility] TRAINING 5 TRACE TRACE HOME AREA AREA CARE AGENCY ON AGENCY ON CLIENT PER 15 MIN SCREENING G0202 [facility] 5 EIDER CHLOE MAMMOGRAP RADIOLOGY HY NIESHA ASSOCIAT INCL CAD WHEN PERFORMD COMPUTER- 07570 [facility] A[facility] 5 DETECTION RADIOLOGY RADIOLOGY ASSOCIAT ASSOCIAT SCREENING MAMMOGRAP HY HOME CARE S5108 [facility] TRAINING 5 TRACE TRACE HOME AREA AREA CARE AGENCY ON AGENCY ON CLIENT PER 15 MIN RADIOLOGI 91023 [place] [facility] C EXAM 5 MEDICAL DOMENIC CHEST 2 IMAGING VIEWS ASS FRONTAL&L ATERAL BLOOD 52965 [facility] COUNT 5 [facility] COMPLETE INC INC AUTO&AUTO DIFRNTL WBC HEMOGLOBI 05538 [facility] L[facility] N 5 [facility] GLYCOSYLA INC INC JULIANNE A1C CYANOCOBA 52833 [facility] MATT 5 [facility] VITAMIN INC INC B-12 LIPID 25104 [facility] PANEL 5 [facility] INC INC COLLECTIO 20737 [facility] N VENOUS 5 [facility] BLOOD INC INC VENIPUNCT URE COMPREHEN 34768 [facility] L[facility] SIVE 5 [facility] METABOLIC INC INC PANEL MISC [place] T1999 [facility] ITEMS & 5 TRACE TRACE SPL AREA AREA RETAIL AGENCY ON AGENCY ON PURCHASE NOC MISC [place] T1999 [facility] ITEMS & 5 TRACE TRACE SPL AREA AREA RETAIL AGENCY ON AGENCY ON PURCHASE NOC HOME CARE S5108 [facility] TRAINING 5 TRACE TRACE HOME AREA AREA CARE AGENCY ON AGENCY ON CLIENT PER 15 MIN HOME CARE S5108 [facility] TRAINING 5 TRACE TRACE HOME AREA AREA CARE AGENCY ON AGENCY ON CLIENT PER 15 MIN RADIOLOGI 13449 KENDRA KLINE C EXAM 5 MEDICAL DOMENIC CHEST 2 IMAGING VIEWS ASS FRONTAL&L ATERAL RADEX 45599 KENDRA BUSBYUTCHER WRIST 5 MEDICAL DOMENIC COMPLETE IMAGING MINIMUM 3 ASS VIEWS APPLICATI 38673 [facility]ICA LOPEZ ON SHORT 5 [facility] ARM INC INC SPLINT FOREARM-H AND STATIC CT THORAX 37009 JESSICA LOPEZ W/O 5 [facility] CONTRAST INC INC MATERIAL RADEX 68591 JESSICA LOPEZ ANKLE 4 [facility] COMPLETE INC INC MINIMUM 3 VIEWS RADEX 17762 [facility] ANKLE 4 [facility] COMPLETE INC INC MINIMUM 3 VIEWS RADEX 80193 [facility]ICA LOPEZ ANKLE 4 [facility] COMPLETE INC INC MINIMUM 3 V[address] BLOOD [address] HEMATOCRI T BASIC [address] PANEL CALCIUM IONIZED BLOOD [address] PLATELET AUTOMATED CATHETER C[address] NAL ANGIOPLAS TY NON-LASER CATH PLMT [address] [facility] & [address] [place] [address] ARTS W/NJX & ANGIO IMG S&I CATHETER C[address] NONINVASI [address]38 [facility]ICA LOPEZ VE 4 [facility] EAR/PULSE INC INC OXIMETRY SINGLE DETER PRESSURIZ 46799 JESSICA LOPEZ ED/NONPRE 4 [facility] SSURIZED INC INC INHALATIO N TREATMENT GLUC BLD 97685 J[facility]ICA LOPEZ GLUC MNTR 4 [facility] DEV INC INC CLEARED FDA SPEC HOME USE BLOOD 78316 [facility] L[facility]Z COUNT 4 [facility] COMPLETE INC INC AUTO&AUTO DIFRNTL WBC BASIC 57593 J[facility]ICA [facility]Z METABOLIC 4 [facility] PANEL INC INC CALCIUM TOTAL COLLECTIO 76952 [facility]ICA L[facility]Z N VENOUS 4 [facility] BLOOD INC INC VENIPUNCT URE HOSPITAL G0378 JESSICA LOPEZ OBSERVATI 4 [facility] ON INC INC SERVICE PER HOUR COMPREHEN 03266 J[facility]ICA LOPEZ SIVE 4 [facility] METABOLIC INC INC PANEL HOSPITAL G0378 J[facility] L[facility] OBSERVATI 4 [facility] ON INC INC SERVICE PER HOUR RADIOLOGI 90920 [facility] L[facility]Z C 4 [facility] EXAMINATI INC INC ON CHEST SINGLE VIEW FRONTAL NONINVASI 47042 [facility] L[facility] VE 4 [facility] EAR/PULSE [place] [address] JESSICA L[facility]Z INFUSION 4 [facility] THERAPY/P INC INC ROPHYLAXI S /DX 1ST TO 1 HR NATRIURET 77629 [facility] L[facility] IC 4 [facility] [place] [address] JESSICA LOPEZ TROPONIN 4 [facility] QUANTITAT INC INC MARINE BLOOD 68791 J[facility]ICA LOPEZ COUNT 4 [facility] COMPLETE INC INC AUTO&AUTO DIFRNTL WBC GLUC BLD 99796 J[facility]ICA L[facility]Z GLUC MNTR 4 [facility] DEV INC INC CLEARED FDA SPEC HOME USE URNLS DIP 84817 [facility] 4 [facility] STICK/TAB INC INC LET REAGENT AUTO MICROSCOP Y PRESSURIZ 06677 JESSICA L[facility]Z ED/NONPRE 4 [facility] SSURIZED INC INC INHALATIO N TREATMENT ECG 84190 J[facility]ICA L[facility]Z ROUTINE 4 [facility] ECG INC INC W/LEAST 12 LDS TRCG ONLY W/O I&[place] [address] JESSICA LOPEZ LIPASE 4 [facility] INC INC PRESSURIZ 43634 JESSICA LOPEZ ED/NONPRE 4 [facility] SSURIZED INC INC INHALATIO N TREATMENT PHYSICAL 15503 J[facility]ICA L[facility]Z THERAPY 4 [facility] EVALUATIO INC INC N BLOOD 18622 [facility] L[facility]Z COUNT 4 [facility] COMPLETE INC INC AUTO&AUTO DIFRNTL WBC NONINVASI 67393 [facility] L[facility] VE 4 [facility] EAR/PULSE INC INC OXIMETRY SINGLE DETER THERAPEUT 01605 [facility] L[facility] ACTVITY 4 [facility] DIRECT PT INC INC CONTACT EACH 15 MIN BASIC 80571 J[facility] L[facility]Z METABOLIC 4 [facility] PANEL INC INC CALCIUM TOTAL COLLECTIO 92255 JESSICA LOPEZ N VENOUS 4 [facility] BLOOD INC INC VENIPUNCT [facility] G0378 JESSICA LOPEZ OBSERVATI 4 [facility] ON INC INC SERVICE [facility] G0378 [facility] L[facility] OBSERVATI 4 [facility] ON INC INC SERVICE PER HOUR FLUOROSCO 29578 [facility]ICA L[facility]Z PY SPX UP 4 [facility] TO 1 INC INC HOUR PHYS/QHP TIME TX PROC G0238 [facility] IMPRV 4 [facility] RESP INC INC FUNCT NOT G0237 FCE-FCE 15MIN GUIDE C1769 [facility] L[facility] WIRE 4 [facility] INC INC CULTURE 35138 J[facility]Z BACTERIAL 4 [facility] INC INC QUANTTATI VE COLONY COUNT URINE CULTURE 17283 [facility] L[facility] BCT 4 [facility] ISOL&PRSM [place] [address] JESSICA LOPEZ INFUSION 4 [facility] THERAPY/P INC INC ROPHYLAXI S /DX 1ST TO 1 HR THERAPEUT 93939 [facility] L[facility] IC 4 [facility] INJECTION INC INC IV PUSH EACH NEW DRUG GLUC BLD 57995 JESSICA LOPEZ GLUC MNTR 4 [facility] DEV INC INC CLEARED FDA SPEC HOME USE URNLS DIP 36138 J[facility]ICA LOPEZ 4 [facility] STICK/TAB INC INC LET REAGENT AUTO MICROSCOP Y NONINVASI 44064 J[facility] L[facility] VE 4 [facility] EAR/PULSE INC INC OXIMETRY SINGLE DETER PRESSURIZ 88027 JESSICA L[facility]Z ED/NONPRE 4 [facility] SSURIZED INC INC INHALATIO N TREATMENT SUSCEPTIB 23351 JESSICAMARLENY LOPEZ LTY STDY 4 [facility] ANTIMICRB INC INC IAL MICRO/AGA R DILUTJ ANCHOR/SC C1713 [facility] REW 4 [facility] OPPOSING INC INC BN-TO-BN/ [place] [address] JESSICA LOPEZ DISTAL 4 [facility] FIBULAR INC INC FRACTURE LAT MALLEOLUS RADIOLOGI 35106 J[facility] L[facility]Z C 4 [facility] EXAMINATI INC INC ON ANKLE 2 VIEWS ECG 62161 JESS[facility]OPEZ ROUTINE 4 [facility] ECG INC INC W/LEAST 12 LDS TRCG ONLY W/O I&R RADIOLOGI 84001 JESSICA LOPEZ C EXAM 4 [facility] CHEST 2 INC INC VIEWS FRONTAL&L ATERAL RADEX 81309 JESSICA [facility]Z ANKLE 4 [facility] COMPLETE INC INC MINIMUM 3 VIEWS RADEX 95330 [facility] L[facility] ANKLE 4 [facility] COMPLETE INC INC MINIMUM 3 VIEWS Encounters Encounter Start End Date Code Location Performer Type Date OFFICE [facility]25 [facility] 25 MINUTES OFFICE 16657 [place] [facility] 5 5 [place] JY[facility] T VISIT INTERNAL 15 MED MINUTES OFFICE 95301 [facility] OUTPATIEN 5 5 PHYSICIAN RAMONE T VISIT S GROUP 15 MINUTES [facility]OSPITAL [facility] - 5 5 [facility] OUTPATIEN INC T OFFICE 00124 [facility] PETTEY OUTPATIEN 5 5 PHYSICIAN JAM T VISIT S GROUP 25 MINUTES HOSPITAL JESSICA - 5 5 [facility] OUTPATIEN [facility] OFFICE 24208 [facility] OUTPATIEN 5 5 PHYSICIAN RAMONE T NEW 45 S GROUP MINUTES OFFICE 67741 [facility] OUTPATIEN 5 5 [facility] VIS[facility] INTERNAL 15 MED MINUTES HOSPITAL JOSE LUIS - 5 5 [facility] JESS[facility] - 5 5 [facility] OUTPATIEN [facility] OFFICE 46303 [facility] OUTPATIEN 5 5 [facility] T [facility]ISIT [facility]NAL 25 MED MINUTES HOSPITAL JESSICA - 5 5 [facility] OUTPATIEN [facility] OFFICE 11433 JESSICA HOWARD OUTPATIEN 5 5 [facility] VISIT HOSP[facility] 15 MINUTES EMERGENCY 42619 JESSICA 5 5 [facility] DEPARTMEN [facility] T VISIT MODERATE SEVERITY HOSPITAL JESSICA - 5 5 [facility] OUTPATIEN [facility] HOSPITAL JESSICA - 5 5 [facility] HOSPITAL JESSICA - 4 4 [facility] JESSICA - 4 4 [facility] JESSICA - 4 4 [facility]PATI[facility] [place] [address] [facility] OUTPATIEN [facility] EMERGENCY 65064 JESSICA 4 4 [facility] DEPARTMEN [facility] T VISIT HIGH/URGE NT SEVERITY HOSPITAL JESSICA - 4 4 [facility] JESSICA - 4 4 [facility] JESSICA - 4 4 [facility]
--- OUTSIDE RECORDS SUMMARY | 2017-02-03 21:05 | External Medical Summary Rpt | CCD ---
Demographics Preferred Language Hong Konger Marital Status Unknown Yazidism Affiliation Unknown Race Unknown Ethnic Group Unknown Author Author , [facility] Organization [facility] Address Unknown Phone Immunization Unable to retrieve immunization data due to connection failure with Immunization Registry. Please try again later.
--- OUTSIDE RECORDS SUMMARY | 2017-02-03 21:07 | External Medical Summary Rpt ---
Author Author [facility] Sharma, ANKUSHMISTY [employer] Organization [employer] Address Unknown Phone Unavailable Results Glucose [Mass/volume] in Capillary blood by Glucometer Observa Value Referen Units Interpr Notes Date tion ce etation Range Glucose 70 - 110 mg/dl High No Feb 01 [Mass/vol informati 2016 6:29 ume] in on in AM Capillary source blood by data Glucomete r Glucose [Mass/volume] in Capillary blood by Glucometer Observa Value Referen Units Interpr Notes Date tion ce etation Range Glucose 70 - 110 mg/dl Normal No Jan 31 [Mass/vol informati 2016 8:33 ume] in on in PM Capillary source blood by data Glucomete r Glucose [Mass/volume] in Capillary blood by Glucometer Observa Value Referen Units Interpr Notes Date tion ce etation Range Glucose 70 - 110 mg/dl High No Jan 31 [Mass/vol informati 2016 4:48 ume] in on in PM Capillary source blood by data Glucomete r Glucose [Mass/volume] in Capillary blood by Glucometer Observa Value Referen Units Interpr Notes Date ti ce etation Range Glucose 70 - 110 mg/dl High No Jan 31 [Mass/vol informati 2016 ume] in on in 11:23 AM Capillary source blood by data Glucomete r Comprehensive metabolic 2000 panel in Serum or Plasma Observa Value Referen Units Interpr Notes Date ti ce etation Range Albumin/G 1.1 - 1.8 No Low No Jan 31 lobulin informati informati 2016 7:00 [Mass on in on in AM ratio] in source source Serum or data data Plasma Albumin 3.4 - 5.0 gm/dL Low No Jan 31 [Mass/vol informati 2016 7:00 ume] in on in AM Serum or source Plasma data Alkaline 46 - 116 U/L High No Jan 31 phosphata informati 2017 7:00 se on in AM [Enzymati source c data activity/ volume] in Serum or Plasma Bilirubin 0.2 - 1.0 mg/dL Normal No Jan 31 .total informati 2016 7:00 [Mass/vol on in AM ume] in source Serum or data Plasma Urea 7 - 18 mg/dL High No Jan 31 nitrogen informati 2016 7:00 [Mass/vol on in AM ume] in source Serum or data Plasma Calcium 8.5 - mg/dL Normal No Jan 31 [Mass/vol 10.1 informati 2016 7:00 ume] in on in AM Serum or source Plasma data Chloride 98 - 107 mmoL/L High No Jan 31 [Moles/vo informati 2016 7:00 lume] in on in AM Serum or source Plasma data Carbon 21.0 - mmoL/L Normal No Jan 31 dioxide, 32.0 informati 2016 7:00 total on in AM [Moles/vo source lume] in data Serum or Plasma Creatinin 0.55 - mg/dL Normal No Jan 31 e 1.02 informati 2016 7:00 [Mass/vol on in AM ume] in source Serum or data Plasma Creatinin 50 - 200 ML/MIN Normal No Jan 31 e renal informati 2016 7:00 clearance on in AM source predicted data by Cockcroft -Gault formula Estimated 59- ML/MIN No REFERENCE Jan 31 informati RANGE: 2017 7:00 glomerula on in >60 AM r source ML/MIN/1. filtratio data 73 SQUARE n rate METERSIf (GF this patient is -A merican, then multiply theresult by 1.210. Globulin 1.3 - 3.2 gm/dL High No Jan 31 [Mass/vol informati 2016 7:00 ume] in on in AM Serum source data Glucose 74 - 106 mg/dL High No Jan 31 [Mass/vol informati 2016 7:00 ume] in on in AM Serum or source Plasma data Potassium 3.5 - 5.1 mmoL/L Normal No Jan 31 informati 2016 7:00 [Moles/vo on in AM lume] in source Serum or data Plasma Sodium 136 - 145 mmoL/L Normal No Jan 31 [Moles/vo informati 2016 7:00 lume] in on in AM Serum or source Plasma data Aspartate 15 - 37 U/L High No Jan 31 informati 2016 7:00 aminotran on in AM sferase source [Enzymati data c activity/ volume] in Serum or Plasma Alanine 12 - 78 U/L No No Jan 31 aminotran informati informati 2016 7:00 sferase on in on in AM [Enzymati source source c data data activity/ volume] in Serum or Plasma Protein 6.4 - 8.2 gm/dL Low No Jan 31 [Mass/vol informati 2016 7:00 ume] in on in AM Serum or source Plasma data CBC W Auto Differential panel in Blood Observa Value Referen Units Interpr Notes Date tion ce etation Range Basophils 0 - 0.2 K/MM3 Normal No Jan 31 informati 2016 7:00 [#/volume on in AM ] in source Blood by data Automated count Basophils 0.1 - 2.0 % Normal No Jan 31 /100 informati 2016 7:00 leukocyte on in AM s in source Blood by data Automated count Eosinophi 0.0 - 0.4 K/mm3 Normal No Jan 31 ls informati 2016 7:00 [#/volume on in AM ] in source Blood by data Automated count Eosinophi 0.1 - % Normal No Jan 31 ls/100 12.0 informati 2016 7:00 leukocyte on in AM s in source Blood by data Automated count Granulocy 1.8 - 7.8 K/mm3 Normal No Jan 31 lauryn informati 2016 7:00 [#/volume on in AM ] in source Blood by data Automated count Granulocy 37.0 - % Normal No Jan 31 lauryn/100 80.0 informati 2016 7:00 leukocyte on in AM s in source Blood by data Automated count Hematocri 37.0 - % Low No Jan 31 t [Volume 47.0 informati 2016 7:00 on in AM Fraction] source of Blood data Hemoglobi 12.2 - g/dL Low No Jan 31 n 16.2 informati 2016 7:00 [Mass/vol on in AM ume] in source Blood data Lymphocyt 0.7 - 4.5 K/mm3 Normal No Jan 31 es informati 2016 7:00 [#/volume on in AM ] in source Unspecifi data ed specimen by Automated count Lymphocyt 10 - 50.0 % Normal No Jan 31 es informati 2016 7:00 [#/volume on in AM ] in source Unspecifi data ed specimen by Automated count Erythrocy 27 - 31.2 pg Low No Jan 31 te mean informati 2016 7:00 corpuscul on in AM ar source hemoglobi data n [Entitic mass] Erythrocy 31.8 - g/dl Low No Jan 31 te mean 35.4 informati 2016 7:00 corpuscul on in AM ar source hemoglobi data n concentra tion [Mass/vol ume] by Automated count Erythrocy 82.2 - fl Low No Jan 31 te mean 97.8 informati 2016 7:00 corpuscul on in AM ar volume source [Entitic data volume] by Automated count Monocytes 0.1 - 1.0 K/mm3 Normal No Jan 31 informati 2016 7:00 [#/volume on in AM ] in source Blood by data Automated count Monocytes 1.7 - 9.3 % Normal No Jan 31 /100 informati 2017 7:00 leukocyte on in AM s in source Blood by data Automated count Platelet 7.4 - fl Normal No Jan 31 mean 10.4 informati 2016 7:00 volume on in AM [Entitic source volume] data in Blood by Automated count Platelets 142 - 424 K/mm3 Normal No Jan 31 informati 2016 7:00 [#/volume on in AM ] in source Blood data Erythrocy 4.2 - 5.4 M/mm3 Low No Jan 31 lauryn informati 2016 7:00 [#/volume on in AM ] in source Amniotic data fluid Erythrocy 11.5 - % High No Jan 31 te 17.5 informati 2016 7:00 distribut on in AM ion width source [Entitic data volume] by Automated count Leukocyte 4.8 - K/MM3 Normal No Jan 31 s 10.8 informati 2016 7:00 [#/volume on in AM ] in source Blood data Glucose [Mass/volume] in Capillary blood by Glucometer Observa Value Referen Units Interpr Notes Date ti ce etation Range Glucose 70 - 110 mg/dl High No Jan 31 [Mass/vol informati 2016 6:00 ume] in on in AM Capillary source blood by data Glucomete r Glucose [Mass/volume] in Capillary blood by Glucometer Observa Value Referen Units Interpr Notes Date ti etation Range Glucose 70 - 110 mg/dl High No Jan 30 [Mass/vol informati 2016 8:32 ume] in on in PM Capillary source blood by data Glucomete r Glucose [Mass/volume] in Capillary blood by Glucometer Observa Value Referen Units Interpr Notes Date ti ce etation Range Glucose 70 - 110 mg/dl High No Oct 18 [Mass/vol informati 2017 5:07 ume] in on in PM Capillary source blood by data Glucomete r Glucose [Mass/volume] in Capillary blood by Glucometer Observa Value Referen Units Interpr Notes Date tion ce etation Range Glucose 70 - 110 mg/dl High No Jan 18 [Mass/vol informati 2016 ume] in on in 11:38 AM Capillary source blood by data Glucomete r Glucose [Mass/volume] in Capillary blood by Glucometer Observa Value Referen Units Interpr Notes Date tion ce etation Range Glucose 70 - 110 mg/dl Normal No Jan 18 [Mass/vol informati 2016 6:37 ume] in on in AM Capillary source blood by data Glucomete r Glucose [Mass/volume] in Capillary blood by Glucometer Observa Value Referen Units Interpr Notes Date ti ce etation Range Glucose 70 - 110 mg/dl Normal No Jan 29 [Mass/vol informati 2016 8:36 ume] in on in PM Capillary source blood by data Glucomete r Glucose [Mass/volume] in Capillary blood by Glucometer Observa Value Referen Units Interpr Notes Date ti ce etation Range Glucose 70 - 110 mg/dl Normal No Jan 29 [Mass/vol informati 2016 5:11 ume] in on in PM Capillary source blood by data Glucomete r Glucose [Mass/volume] in Capillary blood by Glucometer Observa Value Referen Units Interpr Notes Date ti ce etation Range Glucose 70 - 110 mg/dl Normal No Jan 29 [Mass/vol informati 2016 ume] in on in 11:57 AM Capillary source blood by data Glucomete r CBC W Auto Differential panel in Blood Observa Value Referen Units Interpr Notes Date ti ce etation Range Basophils 0 - 0.2 K/MM3 Normal No Jan 29 informati 2016 9:20 [#/volume on in AM ] in source Blood by data Automated count Basophils 0.1 - 2.0 % Normal No Jan 29 informati 2016 9:20 leukocyte on in AM s in source Blood by data Automated count Eosinophi 0.0 - 0.4 K/mm3 Normal No Jan 29 ls informati 2016 9:20 [#/volume on in AM ] in source Blood by data Automated count Eosinophi 0.1 - % Normal No Oct 17 ls/100 12.0 informati 2017 9:20 leukocyte on in AM s in source Blood by data Automated count Granulocy 1.8 - 7.8 K/mm3 High No Jan 29 lauryn informati 2016 9:20 [#/volume on in AM ] in source Blood by data Automated count Granulocy 37.0 - % High No Jan 29 lauryn/100 80.0 informati 2016 9:20 leukocyte on in AM s in source Blood by data Automated count Hematocri 37.0 - % Low No Jan 29 t [Volume 47.0 informati 2016 9:20 on in AM Fraction] source of Blood data Hemoglobi 12.2 - g/dL Low No Jan 29 n 16.2 informati 2016 9:20 [Mass/vol on in AM ume] in source Blood data Lymphocyt 0.7 - 4.5 K/mm3 Normal No Jan 29 es informati 2016 9:20 [#/volume on in AM ] in source Unspecifi data ed specimen by Automated count Lymphocyt 10 - 50.0 % Low No Jan 29 es informati 2016 9:20 [#/volume on in AM ] in source Unspecifi data ed specimen by Automated count Erythrocy 27 - 31.2 pg Low No Jan 29 te mean informati 2016 9:20 corpuscul on in AM ar source hemoglobi data n [Entitic mass] Erythrocy 31.8 - g/dl Low No Jan 29 te mean 35.4 informati 2016 9:20 corpuscul on in AM ar source hemoglobi data n concentra tion [Mass/vol ume] by Automated count Erythrocy 82.2 - fl Low No Jan 29 te mean 97.8 informati 2016 9:20 corpuscul on in AM ar volume source [Entitic data volume] by Automated count Monocytes 0.1 - 1.0 K/mm3 Normal No Jan 29 informati 2017 9:20 [#/volume on in AM ] in source Blood by data Automated count Monocytes 1.7 - 9.3 % Normal No Jan 29 / informati 2016 9:20 leukocyte on in AM s in source Blood by data Automated count Platelet 7.4 - fl Normal No Jan 29 mean 10.4 informati 2016 9:20 volume on in AM [Entitic source volume] data in Blood by Automated count Platelets 142 - 424 K/mm3 Normal No Jan 29 informati 2016 9:20 [#/volume on in AM ] in source Blood data Erythrocy 4.2 - 5.4 M/mm3 Normal No Jan 29 lauryn informati 2016 9:20 [#/volume on in AM ] in source Amniotic data fluid Erythrocy 11.5 - % High No Jan 29 te 17.5 informati 2016 9:20 distribut on in AM ion width source [Entitic data volume] by Automated count Leukocyte 4.8 - K/MM3 Normal No Jan 29 s 10.8 informati 2016 9:20 [#/volume on in AM ] in source Blood data Differential panel, method unspecified - Observa Value Referen Units Interpr Notes Date tion ce etation Range Neutrophi 0 - 8 % Normal No Jan 29 ls.band informati 2016 9:20 form/100 on in AM leukocyte source s in data Blood by Automated count Eosinophi 0 - 3 % Normal No Jan 29 ls/100 informati 2016 9:20 leukocyte on in AM s in source Blood by data Manual count Hypochr 2+ No No No No Jan 29 omia informa informa informa informa 2016 [Presen tion in tion in tion in tion in 9:20 AM ce] in source source source source Blood data data data data LYMPH 8 10 - 50 % Low No Jan 29 informa 2016 tion in 9:20 AM source data Blood 1+ No No No No Jan 29 smear informa informa informa informa 2016 finding tion in tion in tion in tion in 9:20 AM source source source source [Identi data data data data fier] in Blood by Light microsc opy Monocytes 2 - 9 % Normal No Jan 29 informati 2016 9:20 leukocyte on in AM s in source Blood by data Automated count Platele NORMAL No No No No Jan 29 ts informa informa informa informa 2016 [Presen tion in tion in tion in tion in 9:20 AM ce] in source source source source Blood data data data data by Light microsc opy Neutrophi 42 - 76 % High No Jan 29 ls informati 2016 9:20 [#/volume on in AM ] in source Blood by data Automated count Cells No #CELLS No No Jan 29 Counted informati informati informati 2016 9:20 Total [#] on in on in on in AM in Blood source source source data data data Comprehensive metabolic 2000 panel in Serum or Plasma Observa Value Referen Units Interpr Notes Date tion ce etation Range Albumin/G 1.1 - 1.8 No Low No Jan 17 lobulin informati informati 2017 9:20 [Mass on in on in AM ratio] in source source Serum or data data Plasma Albumin 3.4 - 5.0 gm/dL Low No Jan 17 [Mass/vol informati 2017 9:20 ume] in on in AM Serum or source Plasma data Alkaline 46 - 116 U/L High No Jan 17 phosphata informati 2017 9:20 se on in AM [Enzymati source c data activity/ volume] in Serum or Plasma Bilirubin 0.2 - 1.0 mg/dL Normal No Jan 17 .total informati 2016 9:20 [Mass/vol on in AM ume] in source Serum or data Plasma Urea 7 - 18 mg/dL High No Jan 17 nitrogen informati 2016 9:20 [Mass/vol on in AM ume] in source Serum or data Plasma Calcium 8.5 - mg/dL Normal No Jan 29 [Mass/vol 10.1 informati 2016 9:20 ume] in on in AM Serum or source Plasma data Chloride 98 - 107 mmoL/L Normal No Jan 17 [Moles/vo informati 2016 9:20 lume] in on in AM Serum or source Plasma data Carbon 21.0 - mmoL/L Normal No Jan 17 dioxide, 32.0 informati 2017 9:20 total on in AM [Moles/vo source lume] in data Serum or Plasma Creatinin 0.55 - mg/dL High No Jan 17 e 1.02 informati 2016 9:20 [Mass/vol on in AM ume] in source Serum or data Plasma Creatinin 50 - 200 ML/MIN No No Jan 17 e renal informati informati 2016 9:20 clearance on in on in AM source source predicted data data by Cockcroft -Gault formula Estimated 59- ML/MIN Low REFERENCE Oct 17 RANGE: 2016 9:20 glomerula >60 AM r ML/MIN/1. filtratio 73 SQUARE n rate METERSIf (GF this patient is -A merican, then multiply theresult by 1.210. Globulin 1.3 - 3.2 gm/dL High No Jan 17 [Mass/vol informati 2017 9:20 ume] in on in AM Serum source data Glucose 74 - 106 mg/dL Normal No Oct 17 [Mass/vol informati 2016 9:20 ume] in on in AM Serum or source Plasma data Potassium 3.5 - 5.1 mmoL/L Normal No Jan 292016 9:20 [Moles/vo on in AM lume] in source Serum or data Plasma Sodium 136 - 145 mmoL/L Normal No Jan 29 [Moles/vo informati 2016 9:20 lume] in on in AM Serum or source Plasma data Aspartate 15 - 37 U/L No No Jan 29 informati informati 2016 9:20 aminotran on in on in AM sferase source source [Enzymati data data c activity/ volume] in Serum or Plasma Alanine 12 - 78 U/L No No Jan 29 aminotran informati informati 2016 9:20 sferase on in on in AM [Enzymati source source c data data activity/ volume] in Serum or Plasma Protein 6.4 - 8.2 gm/dL Normal No Jan 29 [Mass/vol informati 2016 9:20 ume] in on in AM Serum or source Plasma data Glucose [Mass/volume] in Capillary blood by Glucometer Observa Value Referen Units Interpr Notes Date tion ce etation Range Glucose 70 - 110 mg/dl High No Jan 29 [Mass/vol informati 2016 6:24 ume] in on in AM Capillary source blood by data Glucomete r Drugs identified in Urine by Screen method Observa Value Referen Units Interpr Notes Date tion ce etation Range Collected by nurse? Y Hold specimen in OE? N Positive urine drug screen samples are stored for 7 days. Contact the Lab if confirmation of positives is needed. Ampheta NEGATIV <1000 ng/mL No No Jan 29 mine E informa informa 2016 [Presen tion in tion in 4:44 AM ce] in source source Urine data data by Screen method Barbitura <200 ng/mL No No Jan 29 lauryn informati informati 2016 4:44 [Mass/vol on in on in AM ume] in source source Urine by data data Screen method Benzodiaz 200 ng/mL ng/mL No No Jan 29 epines informati informati 2017 4:44 [Mass/vol on in on in AM ume] in source source Serum or data data Plasma by Screen method Cocaine <300 ng/g No No Jan 29 [Mass/vol informati informati 2016 4:44 ume] in on in on in AM Unspecifi source source ed data data specimen Methadone <300 ng/mL No No Jan 29 informati informati 2016 4:44 [Mass/vol on in on in AM ume] in source source Unspecifi data data ed specimen Opiates <300 ng/mL High This is Jan 29 [Mass/vol an 2017 4:44 ume] in UNCONFIRM AM Unspecifi ED ed result. specimen This result is for medicalpu rposes and/or treatment only. Phencycli <25 ng/mL No No Jan 29 dine informati informati 2017 4:44 [Mass/vol on in on in AM ume] in source source Unspecifi data data ed specimen 11-Hydr NEGATIV <50 ng/mL No No Jan 29 oxy E informa informa 2017 delta-9 tion in tion in 4:44 AM source source tetrahy data data drocann abinol [Presen ce] in Unspeci fied specime n Glucose [Mass/volume] in Capillary blood by Glucometer Observa Value Referen Units Interpr Notes Date tion ce etation Range Glucose 70 - 110 mg/dl Normal No Jan 28 [Mass/vol informati 2016 8:38 ume] in on in PM Capillary source blood by data Glucomete r Glucose [Mass/volume] in Capillary blood by Glucometer Observa Value Referen Units Interpr Notes Date tion ce etation Range Glucose 70 - 110 mg/dl Normal No Jan 16 [Mass/vol informati 2016 4:57 ume] in on in PM Capillary source blood by data Glucomete r Glucose [Mass/volume] in Capillary blood by Glucometer Observa Value Referen Units Interpr Notes Date tion ce etation Range Glucose 70 - 110 mg/dl Normal No Jan 16 [Mass/vol informati 2016 ume] in on in 11:30 AM Capillary source blood by data Glucomete r Gas panel in Arterial blood Observa Value Referen Units Interpr Notes Date ti ce etation Range Base -2.4-+2.3 MMOL/L High No Jan 16 excess in informati 2017 8:00 Arterial on in AM blood source data Arteria PATIENT No No No No Jan 16 l UNABLE informa informa informa informa 2017 patency tion in tion in tion in tion in 8:00 AM Wrist source source source source artery data data data data --pre arteria l punctur e Bicarbona 22.0 - MMOL/L High No Jan 28 te 26.0 informati 2016 8:00 [Moles/vo on in AM lume] in source Arterial data blood Carbon 35.0 - MMHG High Jan 28 dioxide 45.0 2016 8:00 [Partial CRITICAL AM pressure] RESULTS in Arterial RESU blood LTS CALLED TO: 01/28/17 0806 Sophia on,Gisella pH of 7.35 - MMOL/L Low No Jan 28 Arterial 7.45 informati 2016 8:00 blood on in AM source data Oxygen 80 - 100 MMHG Low No Jan 28 [Partial informati 2017 8:00 pressure] on in AM in source Arterial data blood Oxygen 90 - 100 % Normal No Jan 28 saturatio informati 2016 8:00 n.calcula on in AM eber from source oxygen data partial pressure in Arterial blood SOURCE RIGHT No No No No Jan 28 BRACHIA informa informa informa informa 2017 L tion in tion in tion in tion in 8:00 AM source source source source data data data data Carbon 23 - 27 MMOL/L High No Jan 28 dioxide, informati 2016 8:00 total on in AM [Moles/vo source lume] in data Arterial blood CBC W Auto Differential panel in Blood Observa Value Referen Units Interpr Notes Date tion ce etation Range COMMENTS TO [employer]: 0600 Basophils 0 - 0.2 K/MM3 Normal No Jan 28 informati 2016 6:17 [#/volume on in AM ] in source Blood by data Automated count Basophils 0.1 - 2.0 % Normal No Jan 28 informati 2016 6:17 leukocyte on in AM s in source Blood by data Automated count Eosinophi 0.0 - 0.4 K/mm3 Normal No Jan 28 ls informati 2016 6:17 [#/volume on in AM ] in source Blood by data Automated count Eosinophi 0.1 - % Normal No Jan 28 ls/100 12.0 informati 2016 6:17 leukocyte on in AM s in source Blood by data Automated count Granulocy 1.8 - 7.8 K/mm3 High No Jan 28 lauryn informati 2017 6:17 [#/volume on in AM ] in source Blood by data Automated count Granulocy 37.0 - % High No Jan 28 lauryn/100 80.0 informati 2017 6:17 leukocyte on in AM s in source Blood by data Automated count Hematocri 37.0 - % Low No Jan 16 t [Volume 47.0 informati 2017 6:17 on in AM Fraction] source of Blood data Hemoglobi 12.2 - g/dL Low No Jan 16 n 16.2 informati 2017 6:17 [Mass/vol on in AM ume] in source Blood data Lymphocyt 0.7 - 4.5 K/mm3 Normal No Jan 28 es informati 2017 6:17 [#/volume on in AM ] in source Unspecifi data ed specimen by Automated count Lymphocyt 10 - 50.0 % Low No Jan 28 es informati 2016 6:17 [#/volume on in AM ] in source Unspecifi data ed specimen by Automated count Erythrocy 27 - 31.2 pg Low No Jan 28 te mean informati 2016 6:17 corpuscul on in AM ar source hemoglobi data n [Entitic mass] Erythrocy 31.8 - g/dl Low No Jan 28 te mean 35.4 informati 2017 6:17 corpuscul on in AM ar source hemoglobi data n concentra tion [Mass/vol ume] by Automated count Erythrocy 82.2 - fl Low No Jan 28 te mean 97.8 informati 2017 6:17 corpuscul on in AM ar volume source [Entitic data volume] by Automated count Monocytes 0.1 - 1.0 K/mm3 Normal No Jan 28 informati 2016 6:17 [#/volume on in AM ] in source Blood by data Automated count Monocytes 1.7 - 9.3 % Normal No Jan 16 /100 informati 2017 6:17 leukocyte on in AM s in source Blood by data Automated count Platelet 7.4 - fl Normal No Jan 28 mean 10.4 informati 2016 6:17 volume on in AM [Entitic source volume] data in Blood by Automated count Platelets 142 - 424 K/mm3 Normal No Jan 16 informati 2016 6:17 [#/volume on in AM ] in source Blood data Erythrocy 4.2 - 5.4 M/mm3 Low No Jan 28 lauryn informati 2017 6:17 [#/volume on in AM ] in source Amniotic data fluid Erythrocy 11.5 - % High No Jan 16 te 17.5 informati 2017 6:17 distribut on in AM ion width source [Entitic data volume] by Automated count Leukocyte 4.8 - K/MM3 High No Oct 16 s 10.8 informati 2017 6:17 [#/volume on in AM ] in source Blood data Comprehensive metabolic 2000 panel in Serum or Plasma Observa Value Referen Units Interpr Notes Date tion ce etation Range COMMENTS TO [employer]: 0600 Albumin/G 1.1 - 1.8 No Low No Jan 16 lobulin informati informati 2017 6:17 [Mass on in on in AM ratio] in source source Serum or data data Plasma Albumin 3.4 - 5.0 gm/dL Low No Jan 16 [Mass/vol informati 2017 6:17 ume] in on in AM Serum or source Plasma data Alkaline 46 - 116 U/L High No Oct 16 phosphata informati 2017 6:17 se on in AM [Enzymati source c data activity/ volume] in Serum or Plasma Bilirubin 0.2 - 1.0 mg/dL Normal No Jan 16 .total informati 2017 6:17 [Mass/vol on in AM ume] in source Serum or data Plasma Urea 7 - 18 mg/dL High No Jan 16 nitrogen informati 2017 6:17 [Mass/vol on in AM ume] in source Serum or data Plasma Calcium 8.5 - mg/dL Normal No Oct 16 [Mass/vol 10.1 informati 2017 6:17 ume] in on in AM Serum or source Plasma data Chloride 98 - 107 mmoL/L Normal No Jan 16 [Moles/vo informati 2017 6:17 lume] in on in AM Serum or source Plasma data Carbon 21.0 - mmoL/L Normal No Jan 16 dioxide, 32.0 informati 2017 6:17 total on in AM [Moles/vo source lume] in data Serum or Plasma Creatinin 0.55 - mg/dL High No Oct 16 e 1.02 informati 2017 6:17 [Mass/vol on in AM ume] in source Serum or data Plasma Creatinin 50 - 200 ML/MIN Low No Oct 16 e renal informati 2017 6:17 clearance on in AM source predicted data by Cockcroft -Gault formula Estimated 59- ML/MIN Low REFERENCE Oct 16 RANGE: 2017 6:17 glomerula >60 AM r ML/MIN/1. filtratio 73 SQUARE n rate METERSIf (GF this patient is -A merican, then multiply theresult by 1.210. Globulin 1.3 - 3.2 gm/dL High No Jan 16 [Mass/vol informati 2016 6:17 ume] in on in AM Serum source data Glucose 74 - 106 mg/dL Normal No Jan 16 [Mass/vol informati 2016 6:17 ume] in on in AM Serum or source Plasma data Potassium 3.5 - 5.1 mmoL/L High No Jan 16 informati 2016 6:17 [Moles/vo on in AM lume] in source Serum or data Plasma Sodium 136 - 145 mmoL/L Low No Jan 16 [Moles/vo informati 2016 6:17 lume] in on in AM Serum or source Plasma data Aspartate 15 - 37 U/L No No Jan 28 informati informati 2016 6:17 aminotran on in on in AM sferase source source [Enzymati data data c activity/ volume] in Serum or Plasma Alanine 12 - 78 U/L No No Jan 16 aminotran informati informati 2016 6:17 sferase on in on in AM [Enzymati source source c data data activity/ volume] in Serum or Plasma Protein 6.4 - 8.2 gm/dL Normal No Jan 16 [Mass/vol informati 2016 6:17 ume] in on in AM Serum or source Plasma data Glucose [Mass/volume] in Capillary blood by Glucometer Observa Value Referen Units Interpr Notes Date ti ce etation Range Glucose 70 - 110 mg/dl High No Jan 16 [Mass/vol informati 2016 3:39 ume] in on in AM Capillary source blood by data Glucomete r Glucose [Mass/volume] in Capillary blood by Glucometer Observa Value Referen Units Interpr Notes Date tion ce etation Range Glucose 70 - 110 mg/dl High No Jan 15 [Mass/vol informati 2016 8:32 ume] in on in PM Capillary source blood by data Glucomete r Glucose [Mass/volume] in Capillary blood by Glucometer Observa Value Referen Units Interpr Notes Date tion ce etation Range Glucose 70 - 110 mg/dl High No Jan 15 [Mass/vol informati 2016 4:51 ume] in on in PM Capillary source blood by data Glucomete r Glucose [Mass/volume] in Capillary blood by Glucometer Observa Value Referen Units Interpr Notes Date tion ce etation Range Glucose 70 - 110 mg/dl High No Jan 15 [Mass/vol informati 2017 ume] in on in 11:42 AM Capillary source blood by data Glucomete r Glucose [Mass/volume] in Capillary blood by Glucometer Observa Value Referen Units Interpr Notes Date tion ce etation Range Glucose 70 - 110 mg/dl High No Jan 15 [Mass/vol informati 2016 6:38 ume] in on in AM Capillary source blood by data Glucomete r Basic metabolic panel in Blood Observa Value Referen Units Interpr Notes Date tion ce etation Range Urea 7 - 18 mg/dL High No Jan 15 nitrogen informati 2016 5:35 [Mass/vol on in AM ume] in source Serum or data Plasma Calcium 8.5 - mg/dL Normal No Jan 15 [Mass/vol 10.1 informati 2016 5:35 ume] in on in AM Serum or source Plasma data Chloride 98 - 107 mmoL/L Normal No Jan 15 [Moles/vo informati 2016 5:35 lume] in on in AM Serum or source Plasma data Carbon 21.0 - mmoL/L High No Jan 15 dioxide, 32.0 informati 2016 5:35 total on in AM [Moles/vo source lume] in data Serum or Plasma Creatinin 0.55 - mg/dL High No Jan 15 e 1.02 informati 2017 5:35 [Mass/vol on in AM ume] in source Serum or data Plasma Creatinin 50 - 200 ML/MIN Normal No Jan 15 e renal informati 2016 5:35 clearance on in AM source predicted data by Cockcroft -Gault formula Estimated 59- ML/MIN Low REFERENCE Oct 15 RANGE: 2017 5:35 glomerula >60 AM r ML/MIN/1. filtratio 73 SQUARE n rate METERSIf (GF this patient is -A merican, then multiply theresult by 1.210. Glucose 74 - 106 mg/dL High No Jan 15 [Mass/vol informati 2016 5:35 ume] in on in AM Serum or source Plasma data Potassium 3.5 - 5.1 mmoL/L Normal No Jan 15 informati 2016 5:35 [Moles/vo on in AM lume] in source Serum or data Plasma Sodium 136 - 145 mmoL/L Normal No Jan 15 [Moles/vo informati 2016 5:35 lume] in on in AM Serum or source Plasma data CBC W Auto Differential panel in Blood Observa Value Referen Units Interpr Notes Date tion ce etation Range Basophils 0 - 0.2 K/MM3 Normal No Jan 27 informati 2016 5:35 [#/volume on in AM ] in source Blood by data Automated count Basophils 0.1 - 2.0 % Normal No Jan 27 informati 2016 5:35 leukocyte on in AM s in source Blood by data Automated count Eosinophi 0.0 - 0.4 K/mm3 Normal No Jan 27 ls informati 2016 5:35 [#/volume on in AM ] in source Blood by data Automated count Eosinophi 0.1 - % Normal No Jan 27 ls/100 12.0 informati 2016 5:35 leukocyte on in AM s in source Blood by data Automated count Granulocy 1.8 - 7.8 K/mm3 Normal No Jan 27 lauryn informati 2016 5:35 [#/volume on in AM ] in source Blood by data Automated count Granulocy 37.0 - % Normal No Jan 27 lauryn/100 80.0 informati 2016 5:35 leukocyte on in AM s in source Blood by data Automated count Hematocri 37.0 - % Low No Jan 27 t [Volume 47.0 informati 2016 5:35 on in AM Fraction] source of Blood data Hemoglobi 12.2 - g/dL Low No Jan 27 n 16.2 informati 2016 5:35 [Mass/vol on in AM ume] in source Blood data Lymphocyt 0.7 - 4.5 K/mm3 Normal No Jan 27 es informati 2016 5:35 [#/volume on in AM ] in source Unspecifi data ed specimen by Automated count Lymphocyt 10 - 50.0 % Normal No Jan 27 es informati 2016 5:35 [#/volume on in AM ] in source Unspecifi data ed specimen by Automated count Erythrocy 27 - 31.2 pg Low No Jan 27 te mean informati 2016 5:35 corpuscul on in AM ar source hemoglobi data n [Entitic mass] Erythrocy 31.8 - g/dl Low No Jan 27 te mean 35.4 informati 2016 5:35 corpuscul on in AM ar source hemoglobi data n concentra tion [Mass/vol ume] by Automated count Erythrocy 82.2 - fl Low No Jan 15 te mean 97.8 informati 2016 5:35 corpuscul on in AM ar volume source [Entitic data volume] by Automated count Monocytes 0.1 - 1.0 K/mm3 Normal No Jan 15 informati 2016 5:35 [#/volume on in AM ] in source Blood by data Automated count Monocytes 1.7 - 9.3 % Normal No Jan 15 /100 informati 2016 5:35 leukocyte on in AM s in source Blood by data Automated count Platelet 7.4 - fl Normal No Jan 15 mean 10.4 informati 2016 5:35 volume on in AM [Entitic source volume] data in Blood by Automated count Platelets 142 - 424 K/mm3 Normal No Jan 15 informati 2016 5:35 [#/volume on in AM ] in source Blood data Erythrocy 4.2 - 5.4 M/mm3 Low No Jan 15 lauryn informati 2016 5:35 [#/volume on in AM ] in source Amniotic data fluid Erythrocy 11.5 - % High No Jan 27 te 17.5 informati 2016 5:35 distribut on in AM ion width source [Entitic data volume] by Automated count Leukocyte 4.8 - K/MM3 Normal No Jan 15 s 10.8 informati 2016 5:35 [#/volume on in AM ] in source Blood data Glucose [Mass/volume] in Capillary blood by Glucometer Observa Value Referen Units Interpr Notes Date ti ce etation Range Glucose 70 - 110 mg/dl High No Jan 26 [Mass/vol informati 2016 8:54 ume] in on in PM Capillary source blood by data Glucomete r Glucose [Mass/volume] in Capillary blood by Glucometer Observa Value Referen Units Interpr Notes Date ti ce etation Range Glucose 70 - 110 mg/dl High No Jan 14 [Mass/vol informati 2016 8:54 ume] in on in PM Capillary source blood by data Glucomete r Glucose [Mass/volume] in Capillary blood by Glucometer Observa Value Referen Units Interpr Notes Date ti ce etation Range Glucose 70 - 110 mg/dl High No Jan 14 [Mass/vol informati 2016 5:14 ume] in on in PM Capillary source blood by data Glucomete r Comprehensive metabolic 2000 panel in Serum or Plasma Observa Value Referen Units Interpr Notes Date tion ce etation Range Albumin/G 1.1 - 1.8 No Low No Oct 14 lobulin informati informati 2017 1:15 [Mass on in on in PM ratio] in source source Serum or data data Plasma Albumin 3.4 - 5.0 gm/dL Low No Oct 14 [Mass/vol informati 2017 1:15 ume] in on in PM Serum or source Plasma data Alkaline 46 - 116 U/L High No Oct 14 phosphata informati 2017 1:15 se on in PM [Enzymati source c data activity/ volume] in Serum or Plasma Bilirubin 0.2 - 1.0 mg/dL Normal No Oct 14 .total informati 2017 1:15 [Mass/vol on in PM ume] in source Serum or data Plasma Urea 7 - 18 mg/dL High No Oct 14 nitrogen informati 2017 1:15 [Mass/vol on in PM ume] in source Serum or data Plasma Calcium 8.5 - mg/dL Normal No Oct 14 [Mass/vol 10.1 informati 2017 1:15 ume] in on in PM Serum or source Plasma data Chloride 98 - 107 mmoL/L Normal No Oct 14 [Moles/vo informati 2017 1:15 lume] in on in PM Serum or source Plasma data Carbon 21.0 - mmoL/L High No Oct 14 dioxide, 32.0 informati 2017 1:15 total on in PM [Moles/vo source lume] in data Serum or Plasma Creatinin 0.55 - mg/dL High No Oct 14 e 1.02 informati 2017 1:15 [Mass/vol on in PM ume] in source Serum or data Plasma Creatinin 50 - 200 ML/MIN Normal No Oct 14 e renal informati 2016 1:15 clearance on in PM source predicted data by Cockcroft -Gault formula Estimated 59- ML/MIN Low REFERENCE Oct 14 RANGE: 2017 1:15 glomerula >60 PM r ML/MIN/1. filtratio 73 SQUARE n rate METERSIf (GF this patient is -A merican, then multiply theresult by 1.210. Globulin 1.3 - 3.2 gm/dL High No Oct 14 [Mass/vol informati 2017 1:15 ume] in on in PM Serum source data Glucose 74 - 106 mg/dL High No Oct 14 [Mass/vol informati 2017 1:15 ume] in on in PM Serum or source Plasma data Potassium 3.5 - 5.1 mmoL/L Normal No Jan 14 inform2016 1:15 [Moles/vo on in PM lume] in source Serum or data Plasma Sodium 136 - 145 mmoL/L Normal No Jan 14 [Moles/vo informati 2016 1:15 lume] in on in PM Serum or source Plasma data Aspartate 15 - 37 U/L Low No Jan 14 inform2016 1:15 aminotran on in PM sferase source [Enzymati data c activity/ volume] in Serum or Plasma Alanine 12 - 78 U/L Normal No Jan 14 aminotran informati 2016 1:15 sferase on in PM [Enzymati source c data activity/ volume] in Serum or Plasma Protein 6.4 - 8.2 gm/dL Normal No Jan 14 [Mass/vol informati 2016 1:15 ume] in on in PM Serum or source Plasma data Glucose [Mass/volume] in Capillary blood by Glucometer Observa Value Referen Units Interpr Notes Date tion ce etation Range Glucose 70 - 110 mg/dl High No Jan 14 [Mass/vol informati 2016 ume] in on in 12:13 PM Capillary source blood by data Glucomete r Comprehensive metabolic 2000 panel in Serum or Plasma Observa Value Referen Units Interpr Notes Date tion ce etation Range Albumin/G 1.1 - 1.8 No Low No Sep 15 lobulin informati informati 2017 [Mass on in on in 10:20 PM ratio] in source source Serum or data data Plasma Albumin 3.4 - 5.0 gm/dL Low No Sep 15 [Mass/vol informati 2016 ume] [...] gm/dL High No Sep 15 [Mass/vol informati 2017 ume] in on in 10:20 PM Serum source data Glucose 74 - 106 mg/dL High No Sep 15 [Mass/vol informati 2017 ume] in on in 10:20 PM Serum or source Plasma data Potassium 3.5 - 5.1 mmoL/L Normal No Sep 15 informati 2017 [Moles/vo on in 10:20 PM lume] in source Serum or data Plasma Sodium 136 - 145 mmoL/L Low No Sep 15 [Moles/vo informati 2017 lume] in on in 10:20 PM Serum or source Plasma data Aspartate 15 - 37 U/L Low No Sep 15 informati 2017 aminotran on in 10:20 PM sferase source [...] - 0.2 K/MM3 Normal No Sep 15 informati 2017 [#/volume on in 10:20 PM ] in source Blood by data Automated count Basophils 0.1 - 2.0 % Normal No Sep 15 /100 inform2016 leukocyte on in 10:20 PM s in source Blood by data Automated count Eosinophi 0.0 - 0.4 K/mm3 Normal No Sep 15 ls 2016 [#/volume on in 10:20 PM ] in source Blood by data Automated count Eosinophi 0.1 - % Normal No Sep 15 ls/100 12.0 inform2016 leukocyte on in 10:20 PM s in source Blood by data Automated count Granulocy 1.8 - 7.8 K/mm3 Normal No Sep 15 lauryn inform2016 [#/volume on in 10:20 PM ] in source Blood by data Automated count Granulocy 37.0 - % Normal No Sep 15 lauryn/100 80.0 inform2016 leukocyte on in 10:20 PM s in source Blood by data Automated count Hematocri 37.0 - % Low No Sep 15 t [Volume 47.0 informati 2017 on in 10:20 PM Fraction] source of Blood data Hemoglobi 12.2 - g/dL Low No Sep 15 n 16.2 inform2016 [Mass/vol on in 10:20 PM ume] in [...] pg Low No Sep 15 te mean inform 2017 corpuscul on in 10:20 PM ar source hemoglobi data n [Entitic mass] Erythrocy 31.8 - g/dl Low No Sep 15 te mean 35.4 inform 2017 corpuscul on in 10:20 PM ar source hemoglobi data n concentra tion [Mass/vol ume] by Automated count Erythrocy 82.2 - fl Low No Sep 15 te mean 97.8 inform2016 corpuscul on in 10:20 PM ar volume source [Entitic data volume] by Automated count Monocytes 0.1 - 1.0 K/mm3 Normal No Sep 15 informati 2017 [#/volume on in 10:20 PM [...] - 424 K/mm3 Normal No Sep 15 informati 2016 [#/volume on in 10:20 PM [...] 59- ML/MIN Low REFERENCE Sep 8 RANGE: 2016 7:06 glomerula >60 AM r ML/MIN/1. filtratio 73 SQUARE n rate METERSIf (GF this patient is -A merican, then multiply theresult by 1.210. Glucose 74 - 106 mg/dL High No Sep 8 [Mass/vol informati 2017 7:06 ume] in on in AM Serum [...] 0.2 K/MM3 Normal No Sep 8 informati 2016 7:06 [...] Normal No Sep 8 ls/100 12.0 informati 2016 7:06 leukocyte on in AM [...] No Sep 8 t [Volume 47.0 informati 2016 7:06 on in AM Fraction] source of Blood data Hemoglobi 12.2 - g/dL Low No Sep 8 n 16.2 informati 2016 7:06 [Mass/vol on in AM ume] in source Blood data Lymphocyt 0.7 - 4.5 K/mm3 Normal No Sep 8 es informati 2017 7:06 [#/volume on in AM ] in source Unspecifi data ed specimen by Automated count Lymphocyt 10 - 50.0 % Normal No Sep 8 es informati 2017 7:06 [#/volume on in AM ] in source Unspecifi data ed specimen by Automated count Erythrocy 27 - 31.2 pg Low No Sep 8 te mean informati 2017 7:06 corpuscul on in AM ar source hemoglobi data n [Entitic mass] Erythrocy 31.8 - g/dl Low No Sep 8 te mean 35.4 informati 2017 7:06 corpuscul on in AM ar source [...] mg/dL High No Dec 04 nitrogen informati 2017 1:25 [Mass/vol on in PM ume] in source Serum or data Plasma Calcium 8.5 - mg/dL Normal No Dec 04 [Mass/vol 10.1 inform2016 1:25 ume] in on in PM Serum or source Plasma data Chloride 98 - 107 mmoL/L Normal No Dec 04 [Moles/vo 2016 1:25 lume] in on in PM [...] 106 mg/dL High No Dec 04 [Mass/vol ati 2016 1:25 ume] in on in PM Serum or source Plasma data Potassium 3.5 - 5.1 mmoL/L Normal No Dec 042016 1:25 [Moles/vo on in PM lume] in source Serum or data Plasma Sodium 136 - 145 mmoL/L Normal No Dec 04 [Moles/vo ati 2016 1:25 lume] in on in PM [...] 0 - 0.2 K/MM3 Normal No Dec 042016 1:25 [#/volume on in PM ] in source Blood by data Automated count Basophils 0.1 - 2.0 % Normal No Dec 04 /100 informati 2016 1:25 leukocyte on in PM s in source Blood by data Automated count Eosinophi 0.0 - 0.4 K/mm3 Normal No Dec 04 ls informati 2016 1:25 [#/volume on in PM [...] count Hematocri 37.0 - % Low No Dec 04 t [Volume 47.0 informati 2016 1:25 on in PM Fraction] source of Blood data Hemoglobi 12.2 - g/dL Low No Dec 04 n 16.2 informati 2016 1:25 [Mass/vol on in PM ume] in source Blood data Lymphocyt 0.7 - 4.5 K/mm3 Normal No Dec 04 es informati 2017 1:25 [#/volume on in PM ] in source Unspecifi data ed specimen by Automated count Lymphocyt 10 - 50.0 % Normal No Dec 04 es informati 2016 1:25 [#/volume on in PM ] in source Unspecifi data ed specimen by Automated count Erythrocy 27 - 31.2 pg Low No Dec 04 te mean informati 2016 1:25 corpuscul on in PM ar source hemoglobi data n [Entitic mass] Erythrocy 31.8 - g/dl Low No Dec 04 te mean 35.4 informati 2016 1:25 corpuscul on in PM ar source hemoglobi data n concentra tion [Mass/vol ume] by Automated count Erythrocy 82.2 - fl Low Dec 04 te mean 97.8 informati 2016 1:25 corpuscul on in PM ar volume source [Entitic data volume] by Automated count Monocytes 0.1 - 1.0 K/mm3 Normal No Dec 04 informati 2016 1:25 [#/volume on in PM ] in source Blood by data Automated count Monocytes 1.7 - 9.3 % Normal No Dec 04 / informati 2016 1:25 leukocyte on in PM s in source Blood by data Automated count Platelet 7.4 - fl Normal No Dec 04 mean 10.4 informati 2016 1:25 volume on in PM [Entitic source volume] data in Blood by Automated count Platelets 142 - 424 K/mm3 Normal No Dec 04 informati 2017 1:25 [#/volume on in PM ] in source Blood data Erythrocy 4.2 - 5.4 M/mm3 Normal No Dec 04 lauryn informati 2016 1:25 [#/volume on in PM ] in source Amniotic data fluid Erythrocy 11.5 - % Normal No Dec 04 te 17.5 informati 2017 1:25 distribut on in PM ion width source [Entitic data volume] by Automated count Leukocyte 4.8 - K/MM3 High No Dec 04 s 10.8 informati 2017 1:25 [#/volume on in PM ] in source Blood data Basic metabolic panel in Blood Observa Value Referen Units Interpr Notes Date tion ce etation Range Urea 7 - 18 mg/dL High No Sep 17 nitrogen informati 2016 [Mass/vol on in 11:34 AM ume] in source Serum or data Plasma Calcium 8.5 - mg/dL Normal No Sep 17 [Mass/vol 10.1 informati 2016 ume] in on in 11:34 AM Serum or source Plasma data Chloride 98 - 107 mmoL/L Low No Sep 17 [Moles/vo informati 2017 lume] in on in 11:34 AM Serum or source Plasma data Carbon 21.0 - mmoL/L Normal No Sep 17 dioxide, 32.0 informati 2017 total on in 11:34 AM [Moles/vo source lume] in data Serum or Plasma Creatinin 0.55 - mg/dL High No Sep 5 e 1.02 informati 2016 [Mass/vol on in 11:34 AM ume] in source Serum or data Plasma Estimated 59- ML/MIN Low REFERENCE Sep 17 RANGE: 2017 glomerula >60 11:34 AM r ML/MIN/1. filtratio 73 SQUARE n rate METERSIf (GF this patient is -A merican, then multiply theresult by 1.210. Glucose 74 - 106 mg/dL Normal No Marlon 5 [Mass/vol informati 2017 ume] in on in 11:34 AM Serum or source Plasma data Potassium 3.5 - 5.1 mmoL/L Normal No Maroln 5 informati 2016 [Moles/vo on in 11:34 AM lume] in source Serum or data Plasma Sodium 136 - 145 mmoL/L Low No Marlon 5 [Moles/vo informati 2017 lume] in on in 11:34 AM Serum [...]
--- OUTSIDE RECORDS SUMMARY | 2017-02-03 21:07 | External Medical Summary Rpt ---
[...] Date tion ce etation Range COMMENTS TO LIQUEFIER: 0600 Basophils 0 - 0.2 K/MM3 Normal [...] Date tion ce etation Range COMMENTS TO LIQUEFIER: 0600 Albumin/G 1.1 - 1.8 No Low [...] Potassium 3.5 - 5.1 mmoL/L Normal No Marlon 5 informati 2016 [Moles/vo on in 11:34 [...]
[2017-02-03 21:18] LABS: LYMPH # 2.7 K/mm3 (0.7-4.5); LYMPH % 20.2 % (10-50.0)
[2017-02-03 21:34] LABS: HEMOGLOBIN 12.8 g/dL (12.2-16.2)
--- NOTE | 2017-02-03 22:06 | Emergency Room Report ---
See Addendum History of Present Illness Time Seen by MD [id number] Presenting Problem in Triage Pt arrived:Wheelchair Presenting Problem:PT REPORTS BEING SOB, HAS FELT BAD SINCE YESTERDAY. REPORTS VOMITING, DIARRHEA WELL. IS A DIABETIC, BUT IS NON COMPLIANT. RA SAT IS 84% ON ARRIVAL, PLACED ON 2L NC. 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 N Clinical Suspician of Infection? Y Mental Status: 1 - Regular (Normal Baseline) Sepsis Risk:Severe Sepsis Risk Have you (or family members/close friends) recently traveled outside the [place]? N If Yes, where/when: Have you had exposure to infectious disease within the past month? N TB? Other? Specify: Source patient, RN notes reviewed, family, RN/MD Exam Limitations no limitations Comment This is a 66-year-old lady arriving to the emergency room with shortness of breath for the past 3 days, gradually getting worse. Upon arrival to the emergency room the patient's pulse oximetry was 84 percent on room air. Simultaneously with the shortness of breath patient has been also having nausea, vomiting and diarrhea since yesterday as well. She is a history of congestive heart failure, chronic obstructive pulmonary disease, diabetes mellitus and atrial fibrillation. Son stated that she has skipped/not taken the Eliquis for the past 3 days. ALLERGIES Coded Allergies: Sulfa (Sulfonamide Antibiotics) (Intermediate, I-HIVES 07/17/16) Home Medications Active Scripts Apixaban (Eliquis) 2.5 MG PO BID #60 TAB Ref 1 Prov: 07/13/16 ROPINIROLE HCL (Requip) 4 MG PO QHS #30 TAB Ref 1 Prov: 02/01/17 HYDROCODONE/ACETAMINOPHEN (LORTAB 5-325 (generic)) 1 TAB PO TIDP PRN PAIN #60 TAB Prov: 02/01/17 Gabapentin (Neurontin) 200 MG PO TID #120 CAPSULE Ref 1 Prov: 02/01/17 Quetiapine Fumarate (Seroquel Xr) 200 MG PO QHS #30 Ref 1 Prov: 02/01/17 TRIAMCINOLONE ACET 0.1% (Triamcinolone Acetonide) 1 SERGO TP BID 7 Days Prov: 07/28/16 Amoxicillin/Potassium Clav (Augmentin 875-125 Tablet) 1 EACH PO BID #20 TAB Prov: 12/30/16 Discontinued Scripts MECLIZINE HCL (Meclizine Hydrochloride) 12.5 MG PO BID #14 TAB Prov: 01/19/17 DC: 02/01/17 0739 Levofloxacin (Levaquin 500MG) 500 MG PO DAILY #9 TAB Prov: 12/28/16 DC: 02/01/17 0739 Reported Medications Metformin HCL (Metformin) 500 MG PO BID #60 TAB Paroxetine (Paxil) 40 MG PO QHS Conjugated Estrogens (Premarin 0.3MG. Tablet) 0.3 MG PO DAILY LISINOPRIL (Lisinopril) 2.5 MG PO DAILY Levothyroxine Sodium (Levothyroxine) 0.05 MG PO DAILY DILTIAZEM HCL (Cartia Xt) 240 MG PO DAILY #30 CAP Albuterol Sulfate (Ventolin Hfa) 2 PUFF IH QIDP Albuterol-Ipratropium (Duoneb 0.5 MG-3 MG/3 Ml Soln) 3 ML IN TID Sucralfate (Carafate) 1 GM PO TID Lansoprazole (Lansoprazole) 30 MG PO DAILY Device (Oxygen (Concentrator)) 1 UNIT XX UD #2 Montelukast Sodium (Singulair) 10 MG PO QHS MAGNESIUM OXIDE (Magnesium Oxide) 400 MG PO QHS Atorvastatin Calcium (Atorvastatin) 80 MG PO QHS Discontinued Reported Medications Quetiapine Fumarate (Seroquel Xr) 200 MG PO QHS ROPINIROLE HCL (Requip) 4 MG PO QHS HYDROCODONE/ACETAMINOPHEN (LORTAB 5-325 (generic)) 1 TAB PO TIDP PRN PAIN Gabapentin (Neurontin) 200 MG PO TID Melatonin 10 MG PO QHS History Medical History General CAD? No Angina: No MT: No Hypertension? Yes Hyperlipidemia? Yes CHF? Yes DVT? No PE? No COPD? Yes Asthma? Yes Anemia? No GERD? No Gastric ulcers? No GI Bleed? No Hernia? No Thyroid Problems? Yes Hypothyroidism? Yes CVA? No Seizures? Yes Diabetes? Yes Insulin Dependent: No Insulin Pump: No Home FSBS? No Renal Insuffiency? Yes End Stage Renal Disease? No UTI? Yes Stones? No BPH? No GB Disease: No Nephritic Syndrome? No Asplenia? No Hepatitis? No Sickle Cell Disease? No Arthritis? Yes Migraines? No Cataracts? Yes Glaucoma? No MRSA? No HIV? No TB? No Anxiety? Yes Depression? Yes Cancer? Yes Site: LUNG, SKIN CA More? Yes Additional hx: [place], AFIB Immunization Hx DT/Tetanus 10/15/12 Flu 2017-18FSN Pneumonia Received In Past Surgical Hx Previous Surgery?Y L-LUMPECTOMY X2 TEETH EXTRACTED, UPPER TUMOR FROM R WRIST Tubal Ligation R-UPPER AND LOWER LOBECTO HYSTERECTOMY SKIN CANCER OF NOSE BI-LAT CATARACTS RIGHT ANKLE Family History Family Hx Diabetes Yes CAD Yes Hypertension Yes Hyperlipidemia Yes Cancer Yes TB No Social History Smoking Hx Smoker: Current Every Day Smoker Tobacco: Yes Type Cigarettes Packs/day < 1 Pack Are you/the child exposed to second-hand smoke: Yes Alcohol Alcohol: No Review of Systems All Other Systems Reviewed and Negative Respiratory cough, shortness of breath, wheezing Physical Exam Vital Signs Vital Signs Date Time Temp Pulse Resp B/P Pulse O2 O2 Flow FiO2 Ox Delivery Rate 02/04 2136 103 22 107/64 92 2 02/03 2043 98.3 131 22 150/75 92 2 General Appearance normal appearance, WD/WN, moderate distress Respiratory Status Yes: trachea midline, chest symmetrical, non tender chest. No: respiratory distress. Lung Sounds anterior: wheezing. posterior: wheezing. bilateral: wheezing. 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 No Comment 21:45-patient re-evaluated, she appears minimally improved, still in rapid atrial fibrillation. 22:05-case discussed with Dr. Shaikh, covering for Dr. Breaux, advised of patient's presentation and findings, agreeable with management and admission. Care transferred to Dr. Shaikh/Namita at this time, will write temporary admission orders per hospital protocol, with the unit nurse to contact PCP upon patient's presentation to the floor, in order to obtain full, inpatient admission orders. 01:00am -patient condition continues to decline, with her becoming more hypoxic, more acidotic, as reflected by the 2 ABGs obtained. Patient becomes more somnolent, oxygen requirement continues to increase, gradually moving from nasal cannula to nonrebreather mask, he noted to maintain the pulse oximetry over 92%. 01:25am-case d/w [facility] radiologist, Dr. Andres, advising with critical findings, specifically the narrowing of the upper respiratory tract, consistent with tracheomalacia, new since 2016. 01:27am - case d/w Dr Yair Auguste, ICU attending, advised of the above, agreeable with transfer. 01:30am-patient intubated orally using Glidoscope + conscious sedation protocol (etomidate + succhynilcholine). Mallampatti II score. Vocal cords were both visualized easily, ET tube sliding through larynx, with fogging of the ET tube immediately after intubation, confirming colorimetric changes on the CO2 detector, equal chest rise, bilateral breath sounds audible, no gastric borborygmi. Portable chest x-ray shows ET tube 1 cm above annika. 02:00am-post intubation patient becomes hypotensive, Levophed drip started. Advised family members of patient's critical condition, and possible complications, including , loss of current lifestyle, etc. Prognosis is dire. Results/Orders Laboratory Tests 02/03/172049: Lactic Acid 3.4 H 02/03/172049: Sodium 134 L, Potassium 4.5, Chloride 97 L, Carbon Dioxide 24, BUN 27 H, Creatinine 1.2 H, Estimated Creat Clear 73, Estimated GFR (MDRD) 45 L, Glucose 120 H, Calcium 9.7, Total Bilirubin 0.7, AST 132 H, ALT 131 H, Alkaline Phosphatase 169 H, Creatine Kinase 250 H, CK-MB (CK-2) Rel Index 2.0, CK and CKMB Interp 5.0 H, Troponin I 0.12 H, B-Natriuretic Peptide 1690 H, Total Protein 8.7 H, Albumin 3.5, Globulin 5.2 H, Albumin/Globulin Ratio 0.7 L, PT 13.5 H, INR 1.25 H, APTT 35.4 H, D-Dimer 3150 *H, WBC 13.5 H, RBC 5.63 H, Hgb 12.8, Hct 42.1, MCV 74.8 L, RDW 17.9 H, Plt Count 413, MPV 7.6, Gran % 72.8, Gran # 9.8 H, Lymphocytes % 20.2, Monocytes % 5.6, Eosinophils % 0.7, Basophils % 0.7, Lymphocytes # 2.7, Monocytes # 0.8, Eosinophils # 0.1, Basophils # 0.1, PUBS MCHC 30.4 L, MCH 22.7 L Current Medication Orders Sig/Curry Start time Last Medication Dose Route Stop Time Status Admin Diltiazem HCl 0 .STK-MED ONE 02/03 2150 DC IV Sodium Chloride 100 ML .STK-MED ONE 02/03 2150 DC IV Diltiazem HCl 20 MG ONCE ONE 02/03 2115 DC 02/03 IV 02/03 Diltiazem HCl 0 .STK-MED ONE 02/03 2109 DC IV Aspirin 0 .STK-MED ONE 02/03 2100 DC .ROUTE Albuterol/Ipratropium 0 .STK-MED ONE 02/03 2051 DC INH Albuterol/Ipratropium 3 ML ONCE ONE 02/03 2045 DC 02/03 INH 02/03 Aspirin 325 MG ONCE ONE 02/03 2045 DC 02/03 PO 02/03 Nitroglycerin 0.4 MG [id number] PRN 02/03 2045 AC SL Sodium Chloride 10 ML PRN PRN 02/03 2045 AC IV 02/04 2038 Orders Procedure Date/time Status Decision to admit 02/04 2144 Active RT Aerosol Treatment, Provide 02/03 2106 Active ELECTROCARDIOGRAM REQUEST 02/04 2104 Active FSBS REQUEST BY CARE AREA 02/03 2051 Active RT REQUEST DUONEB 02/03 2045 Active CULTURE, BLOOD 02/03 2045 Active LACTIC ACID 02/03 2045 Complete ELECTROCARDIOGRAM REQUEST 02/03 2038 Active CHEST-PORTABLE 02/03 2038 Active IV SALINE LOCK 02/03 2038 Active CIGARETTE MAKING MACHINE CATCHER 02/03 2038 Active PARTIAL THROMBOPLASTIN TIME 02/03 2038 Complete PROTHROMBIN TIME 02/03 2038 Complete D-DIMER 02/03 2038 Complete COMPLETE METABOLIC PANEL 02/03 2038 Complete CBC WITH AUTO DIFF 02/03 2038 Complete CARDIAC ENZYMES 02/03 2038 Complete BRAIN NATRIURETIC PEPTIDE 02/03 2038 Complete 12 LEAD EKG-RUFINO (INITIAL) 02/03 UNK Active XRAY/CT/US XRAY/CT/US CT chest CT interpretation by discussed w/radiologist (Dr Andres) Time results known: 27 CT Results abnormal Comment see result per [facility] report (c/w trachoemalacia, LLL pneumonia, etc). Report was called directly to myself by the radiologist with [facility]. Departure Departure Time of Disposition 2206 Disposition DC/XFER from ER to [facility] Clinical Impression Primary Impression: Tracheomalacia, acquired Secondary Impressions: Atrial fibrillation with RVR CHF exacerbation Qualifiers: Congestive heart failure type: systolic Qualified Code: I50.23 - Acute on chronic systolic (congestive) heart failure COPD exacerbation Elevated d-dimer Elevation of cardiac enzymes Pleural effusion Pneumonia Qualifiers: Pneumonia type: due to unspecified organism Laterality: left Lung location: lower lobe of lung Qualified Code: J18.1 - Lobar pneumonia, unspecified organism Respiratory failure Qualifiers: Chronicity: acute Respiratory failure complication: hypoxia Qualified Code: J96.01 - Acute respiratory failure with hypoxia Condition STABLE Referrals Abhishek Breaux MD (Family) ED Critical Care Critical Care Yes Time spent 105-134 min Vital system(s) involved: Circulatory Failure, Metabolic Failure, Respiratory Failure I was present at bedside for Coordinating pt's care, Interpreting EKGs/Strips , During my initial exam, Reviewing lab results, Reviewing old records, Discussing pt condition, For re-examinations, Ventilator management, Examining radiographs If Critical Care minutes are documented, the time involved in the performance of seperately reportable procedures was not counted toward critical care time documented. I directly delivered medical care to this critically ill and/or injured patient. Timely evaluation and treatment was necessary to address the significant organ system(s) dysfunction present in this patient. at 0500
--- OUTSIDE RECORDS SUMMARY | 2017-02-03 22:14 | External Medical Summary Rpt | CCD ---
Author Author , DWIGHT QUINTANILLA Address Unknown Phone [email or web address] Care Team Providers Care Software Engineer Web Applications Name Role Phone BEINEKE HANNY, BEINEKE Unavailable Unavailable HANNY BESSON JYOTI, BESSON Unavailable Unavailable JYOTI SUSANNAH VAMSI, Unavailable Unavailable SUSANNAH VAMSI [facility] Un[facility] Un[facility], [facility] Unavailable Unavailable [facility], [facility] ELIUD DOMENIC, Unavailable Unavailable ELIUD DOMENIC [facility] Unavailable Unavailable [place] [place] [facility] Unavailable Unavailable [place] [place] FRYMAN EUG, FRYMAN Unavailable Unavailable EUG HAGENSCHREYES CHLOE, Unavailable Unavailable HAGENSCHNEIDER CHLOE [facility] Un[facility], [facility] Unavailable Unavailable HOSPITAL P, [facility] P [facility], Unavailable Unavailable [facility] Unavailable Unavailable [facility], [facility] SMITH RAMONE, SMITH Unavailable Unavailable RAMONE RUFINO JR DWI, RUFINO Unavailable Unavailable JR DWI [facility] Unavailable Unavailable INTERNAL MED, [facility], Unavailable Unavailable [facility] Unavailable Unavailable [facility] Leanne Shaikh MD, Unavailable Unavailable Leanne Shaikh MD [facility] Unavailable Unavailable ASSOC[facility]AT, [facility] Unavailable Unavailable MEDICAL, [facility] MEDICAL PETTEY JAM, PETTEY Unavailable Unavailable JAM [facility] Unavailable Unavailable SERVICES, [facility], Unavailable Unavailable [facility] Eduin Blanca MD, Unavailable Unavailable Eduin Blanca MD Purpose Continuity of Care Document - 05-28-2012 through 2016 Problems Code Diagnosis DOS Provider Status J449 CHRONIC 02-24-2015 [facility] INC PULMONARY DISEASE UNS E119 TYPE 2 02-15-2015 DIABETIC DIABETES EXPERTS OF MELLITUS [place] WITHOUT COMPLICATIO NS [id number] DERMATOCHAL 01-31-2015 [place] [facility] EYE UNS INSTITUTE EYELID Z961 PRESENCE OF 01-31-2015 [facility] LENS J0100 ACUTE 01-28-2015 [facility] SINUSITIS INTERNAL UNSPECIFIED MED M722 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 [facility] FIBROMATOSI INTERNAL S MED I10 ESSENTIAL 01-20-2015 [facility] [facility] HYPERTENSIO AGENCY ON N 4280 CONGESTIVE 12-29-2014 [facility] [facility] FAILURE AGENCY ON UNSPECIFIED 428 HEART 12-28-2014 [place] [facility]URE [facility] AGENCY ON 496 CHRONIC 12-25-2014 [facility] [place] [address]151 ACUTE 12-16-2014 [facility], PHYSICIANS WITHOUT GROUP MENTION OF OBSTRUCTIO 67455 UNSPEC 11-30-2014 [facility] BURSAE&TEND INC ONS SHOULDER REGION 7262 OTHER 11-30-2014 [facility] OF SHOULDER INC REGION NEC V571 OTHER 11-30-2014 [facility] THERAPY INC 7273 OTHER 11-26-2014 [facility] B[facility] DISORDERS GROUP 30942 PAIN IN 11-18-2014 [place] [facility], MEDICAL [facility] IMAGING ASS REGION 22328 DIAB W/O 11-17-2014 DIABETIC COMP TYPE EXPERTS OF II/UNS NOT [place] STATED UNCNTRL 93683 HYPERTENSIV 11-14-2014 [facility]ART [facility] DISEASE [facility] P UNSPEC W/HEART FAIL 01438 OBST 11-14-2014 [place] CHRONIC [facility] BRONCHITIS [facility] P W/ACUTE BRONCHITIS 5939 UNSPECIFIED 11-14-2014 [facility] KIDNEY [facility] P AND URETER 41715 CHEST PAIN 11-14-2014 [place] [facility]PECIFIED [facility] 250 DIABETES 11-04-2014 [place] [facility] AGENCY ON 4760 CHRONIC 10-30-2014 [facility]NG[facility] GROUP 5191 POLYP OF 10-30-2014 [facility] VOCAL CORD PHYSICIANS OR LARYNX GROUP 3092 UNSPECIFIED 10-30-2014 [facility] DISORDER PHYSICIANS OF GROUP SKIN&SUBCUT ANEOUS TISSUE 3572 POLYNEUROPA 09-28-2014 [facility] IN [facility] DIABETES INTERNAL MED 01813 ASTHMA, 09-28-2014 [facility] UNSPECIFIED VALLEY , INTERNAL UNSPECIFIED MED STATUS V7612 OTHER 07-20-2014 [facility] MAMMOGRAM MEDICAL 7862 COUGH 07-09-2014 [facility] 3384 CHRONIC 07-07-2014 [facility] PAIN [facility] SYNDROME INTERNAL MED 68319 DYSPHONIA 07-07-2014 [facility] INTERNAL MED 7906 OTHER 07-07-2014 [facility]AL [facility] BLOOD INC CHEMISTRY 10417 GOUTY 06-03-2014 [facility] INC UNSPECIFIED 4019 UNSPECIFIED 06-03-2014 [facility] ESSENTIAL [facility] [place]YPERTENSIO INC N 82875 PAIN IN 06-03-2014 [place] [facility], MEDICAL FOREARM IMAGING ASS V1582 PERS HX 06-03-2014 [facility]ACCO USE [facility] PRESENTING INC [facility] 08325 SOLITARY 05-05-2014 [facility]ULMONARY [facility] NODULE INC V5878 AFTERCARE 04-01-2014 [facility] SURGERY INC MUSCULOSKEL SYSTEM NEC V5416 AFTERCARE 03-10-2014 [facility] TRAUMATIC INC FRACTURE LOWER LEG 2724 OTHER AND 03-02-2014 [facility] HYPERLIPIDE POLLY 3569 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 [facility] OPATHIC PERIPHERAL NEUROPATHY 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 [facility] [place] 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[facility] 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 90972 ESOPHAGEAL 03-02-2014 [facility] 99970 DEHYDRATION 02-19-2014 [facility] 4589 UNSPECIFIED 02-19-2014 [facility] HYPOTENSION INC 7802 SYNCOPE AND 02-19-2014 [facility]SE [facility] 06483 SHORTNESS 02-19-2014 [facility]ATH [facility] INC V1090 PERSONAL 02-19-2014 [facility]ORY [facility] UNSPECIFIED INC MALIGNANT NEOPLASM V1254 PERSONAL HX 02-19-2014 [facility]IA [facility] CI [facility] W/O INC RESIDUAL DEFICITS 16074 MORBID 02-16-2014 [facility]ITY [facility] INC 5990 URINARY 02-16-2014 [facility] TRACT [facility] INFECTION INC SITE NOT SPECIFIED 74798 MALUNION OF 02-16-2014 [facility]RACTURE [facility] INC 8248 UNSPECIFIED 02-16-2014 [facility] CLOSED [facility] FRACTURE OF INC ANKLE V1581 PERS HX 02-16-2014 [facility]COMPLIAN [facility] CE W/MED TX INC PRS [facility] V8541 BODY MASS 02-16-2014 [facility] INDEX [facility] 40.0-44.9 INC ADULT 276.8 Hypokalemia [facility] 416.9 Cor [place] pulmonale [facility] [id number] Gastritis [facility] [id number] Pulmonary [facility] [id number] Chronic [facility] Allergies, Adverse Reactions, Alerts Type Drug Allergy [...] RO 07 -0 SE 90 6- Lo [place] 07 20 ng DE 32 13 er [...] 5 ti MG ve TA BL ET [place] 11 05 1 No RA 52 -0 [...] TF 07 -0 OR 90 5- Lo AZ 17 20 ng N 22 13 er [...] 1 Ac TA ti BL ve ET [place] 00 02 2 No OM 64 -1 [...] RO 40 -1 SE 96 4- Lo AZ 10 20 ng DE 20 13 er [...] TF 07 -1 OR 90 4- Lo AZ 17 20 ng N 22 13 er [...] 0M ti G ve Ta bl et [place] 00 02 3 No OT 00 -1 [...] Order Detail nces retati t Range on CBC w auto diff (02-03-2017 20:50) Automat = 0.1 0-0.2 complet ed 017 K/MM3 ed blood 20:50 basophi l count (count/ vo Baso % = 0.7 % 0.1-2.0 complet 017 ed 20:50 Automat = 0.1 0.0-0.4 complet ed 017 K/mm3 ed blood 20:50 eosinop hil count Automat = 0.7 % 0.1-12. complet ed 017 0 ed blood 20:50 eosinop hils/10 0 leukocy t Blood = 9.8 1.8-7.8 complet granulo 017 K/mm3 ed cytes 20:50 automat ed count (numb Granulo = 72.8 37.0-80 complet cyte 017 % .0 ed percent 20:50 age Blood = 42.1 37.0-47 complet hematoc 017 % .0 ed rit 20:50 (volume fractio n) Blood = 12.8 12.2-16 complet hemoglo 017 g/dL .2 ed bin 20:50 measure ment (mass/v olum Comment: 02/03/173: Comment: HGB previously reported as: 12.7 # g/dL Absolut = 2.7 0.7-4.5 complet e 017 K/mm3 ed lymphoc 20:50 yte count Lymphoc = 20.2 10-50.0 complet yte 017 % ed count, 20:50 blood, automat ed Mean = 22.7 27-31.2 complet corpusc 017 pg ed ular 20:50 hemoglo bin (MCH) determ Automat = 30.4 31.8-35 complet ed 017 g/dl .4 ed erythro 20:50 cyte mean corpusc ular h Automat = 74.8 82.2-97 complet ed 017 fl .8 ed erythro 20:50 cyte mean corpusc ular v Absolut = 0.8 0.1-1.0 complet e 017 K/mm3 ed monocyt 20:50 e count [place] % = 5.6 % 1.7-9.3 complet 017 ed 20:50 Automat = 7.6 7.4-10. complet ed 017 fl 4 ed blood 20:50 platele t mean volume emmy Blood = 413 142-424 complet platele 017 K/mm3 ed t count 20:50 Red = 5.63 4.2-5.4 complet blood 017 M/mm3 ed cell 20:50 count Automat = 17.9 11.5-17 complet ed 017 % .5 ed erythro 20:50 cyte distrib ution width Blood = 13.5 4.8-10. complet leukocy 017 K/MM3 8 ed lauryn 20:50 count (number /volume ) Blood lactic acid measurement (moles/vol (02-03-2017 20:50) Blood = 3.4 0.4-2.0 complet lactic 017 mmol/L ed acid 20:50 measure ment (moles/ vol Comment: An elevated Lactic Acid is suggestive of sepsis and should Comment: be repeated within 6 hours of initial testing. D-dimer (02-03-2017 20:50) Comment: IS PATIENT ON ANTICOAGULANTS? N Comment: PTT RESULTS MUST BE CALLED IF PT ON HEPARIN!!! Y D-dimer = 3150 0-400 complet 017 ng/mL ed 20:50 Comment: NOTIFICATION RESULT Comment: The D-Dimer values are presented in units of mass(ng/mL) of Comment: D-Dimer units(DDU). Comment: Comment: This test has been FDA approved as an aid in the assessment Comment: and evaluation of suspected DIC, and thromboembolic events Comment: including PE and DVT. However, it does not have approval Comment: for cut-off values for the exclusion of these conditions. Whole blood INR measurement (02-03-2017 20:50) Comment: IS PATIENT ON ANTICOAGULANTS? N Comment: PTT RESULTS MUST BE CALLED IF PT ON HEPARIN!!! Y Whole = 1.25 0.9-1.1 complet blood 017 ed INR 20:50 measure ment Comment: INDICATION INR RANGE Comment: Comment: THERAPY FOR DVT, PE, ATRIAL FIB; 2.0 - 3.0 Comment: PROPHYLAXIS FOR VTE Comment: Comment: THERAPY FOR MECHANICAL HEART 2.5 - 3.5 Comment: VALVE; PREVENTION OF SYSTEMIC Comment: EMBOLISM SECONDARY TO AMI Prothro = 13.5 9.4-11. complet mbin 017 SECONDS 8 ed time 20:50 (PT) in platele t poor p Activated partial thromboplastin time (a (02-03-2017 20:50) Comment: IS PATIENT ON ANTICOAGULANTS? N Comment: PTT RESULTS MUST BE CALLED IF PT ON HEPARIN!!! Y Activat = 35.4 23.6-34 complet ed 017 SECONDS .0 ed partial 20:50 thrombo plastin time (a Comment: Comment: RESULTS CALLED TO Tacho SOMMERS RN 02/03/17 [id number] Ti Yu Glucose capillary blood glucometer (02-01-2017 06:29) Glucose = 126 70-110 complet 017 mg/dl ed capilla 06:[address] Glucose capillary blood glucometer (01-31-2017 20:33) Glucose = 109 70-110 complet 017 mg/dl ed capilla 20:[address] Glucose capillary blood glucometer (01-31-2017 16:48) Glucose = 117 70-110 complet 017 mg/dl ed capilla 16:[address] Glucose capillary blood glucometer (01-31-2017 11:23) Glucose = 111 70-110 complet 017 mg/dl ed capilla 11:[address] CBC w auto diff (01-31-2017 07:00) Automat [...] blood 07:00 platele t mean volume emmy [place] % = 7.6 % 1.7-9.3 complet 017 [...] 0.5 % 0.1-2.0 complet 017 ed 07:00 Comprehensive metabolic panel (01-31-2017 07:00) Protein = 6.2 6.4-8.2 complet total 017 gm/dL ed ser/yuli 07:00 s ALT = 70 12-78 complet (SGPT) 017 U/L ed ser/yuli 07:00 s Serum = 84 15-37 complet or 017 U/L ed plasma 07:00 asparta te aminotr ansfera Serum = 145 136-145 complet sodium 017 mmoL/L ed measure 07:00 ment Serum = 4.1 3.5-5.1 complet potassi 017 mmoL/L ed um 07:00 measure ment Serum = 112 74-106 complet or 017 mg/dL ed plasma 07:00 glucose measure ment (mas Serum = 3.4 1.3-3.2 complet globuli 017 gm/dL ed n 07:00 measure ment (mass/v olume) Estimat = 63 59- complet ed 017 ML/MIN ed glomeru 07:00 lar filtrat ion rate (GF Comment: REFERENCE RANGE: >60 ML/MIN/1.73 SQUARE METERS Comment: If this patient is -[place], then multiply the Comment: result by 1.210. [...] plasma 07:00 albumin /globul in mass ra Glucose capillary blood glucometer (01-31-2017 06:00) Glucose 2 = 124 70-110 complet 017 mg/dl ed [...] Glucose capillary blood glucometer (01-29-2017 11:57) Glucose 01-29- = 107 70-110 complet 017 mg/dl ed capilla 11:[address] Differential panel, method unspecified - (01-29-2017 09:20) Hypochr 01-29-2 2+ complet omia 017 ed [Presen 09:20 ce] in Blood LYMPH 8 % 10% - Low complet 017 50% ed 09:20 Blood 1+ complet smear 017 ed finding 09:20 [Identi fier] in Blood by Light microsc opy Platele NORMAL complet ts 017 ed [Presen 09:20 ce] in Blood by Light microsc opy Differential panel, method unspecified - (01-29-2017 09:20) Blood 01-29-2 = 100 complet total 017 #CELLS ed cell 09:20 count Neutrop = 84 % 42-76 complet hil 017 ed count 09:20 Platele NORMAL complet t 017 NORMAL ed estimat 09:20 L e Monocyt = 5 % 2-9 complet e % 017 ed 09:20 Periphe 1+ 1+ L complet ral 017 ed blood 09:20 smear examina tion by nely LYMPH 01-29- 8 % 10-50 complet 017 ed 09:20 Hypochr 01-29-2 2+ 2+ L complet omatic 017 ed red 09:20 blood cell detecti on Manual = 2 % 0-3 complet blood 017 ed eosinop 09:20 hils/10 0 leukocy lauryn Automat = 1 % 0-8 complet ed 017 ed blood 09:20 band neutrop hil percent a CBC w auto diff (01-29-2017 09:20) Blood 01-29- = 10.8 4.8-10. complet leukocy 017 K/MM3 [...] blood 09:20 platele t mean volume emmy [place] % = 4.6 % 1.7-9.3 complet 017 [...] SQUARE METERS Comment: If this patient is -[place], then multiply the Comment: result by 1.210. [...] plasma 09:20 albumin /globul in mass ra Glucose capillary blood glucometer (01-29-2017 06:24) Glucose = 115 70-110 complet 017 mg/dl ed capilla 06:[address] Drugs identified in Urine by Screen method (01-29-2017 04:44) Ampheta NEGATIV <1000 complet mine 017 E ed [Presen 04:44 ce] in Urine by Screen method 11-Hydr NEGATIV <50 complet oxy 017 E ed delta-9 04:44 tetrahy drocann abinol [Presen ce] in Unspeci fied specime n Urine 9-analyte drugs of abuse screening (01-29-2017 [...] NEGATIV screeni E L ng test ng/mL Glucose capillary blood glucometer (01-28-2017 20:38) Glucose = 107 70-110 complet 017 mg/dl ed capilla 20:[address] Glucose capillary blood glucometer (01-28-2017 16:57) Glucose = 98 70-110 complet 017 mg/dl ed capilla 16:[address] Glucose capillary blood glucometer (01-28-2017 11:30) Glucose = 110 70-110 complet 017 mg/dl ed capilla 11:[address] Gas panel in Arterial blood (01-28-2017 08:00) Arteria PATIENT complet l 017 UNABLE ed patency 08:00 Wrist artery --pre arteria l punctur e SOURCE RIGHT complet 017 BRACHIA ed 08:00 L Arterial blood gas (01-28-2017 08:00) Arteria = [...] .3 ed base 08:00 excess determi nation CBC w auto diff (01-28-2017 06:17) Comment: COMMENTS TO MANAGER OF NETWORK: 0600 Baso % = 0.1 % 0.1-2.0 [...] blood 06:17 platele t mean volume emmy [place] % = 4.9 % 1.7-9.3 complet 017 [...] metabolic panel (01-28-2017 06:17) Comment: COMMENTS TO MANAGER OF NETWORK: 0600 Protein = 7.4 6.4-8.2 complet total [...] SQUARE METERS Comment: If this patient is -[place], then multiply the Comment: result by 1.210. Estimat = 41 50-200 complet ion of 017 ML/MIN ed creatin 06:17 ine renal clearan ce Serum = 2.2 0.55-1. complet or 017 mg/dL 02 ed plasma 06:17 creatin ine measure ment ( Carbon = 32 21.0-32 complet dioxide 017 mmoL/L .0 ed 06:17 measure ment Serum = 98 98-107 complet or 017 mmoL/L [...] Glucose capillary blood glucometer (01-27-2017 20:32) Glucose 10-15-2 = 123 70-110 complet 017 mg/dl ed capilla 20:[address] Glucose capillary blood glucometer (01-27-2017 16:51) Glucose 10-15-2 = 136 70-110 complet 017 mg/dl ed capilla 16:[address] Glucose capillary blood glucometer (01-27-2017 11:42) Glucose 10-15-2 = 120 70-110 complet 017 mg/dl ed capilla 11:[address] Glucose capillary blood glucometer (01-27-2017 06:38) Glucose 10-15-2 = 127 70-110 complet 017 mg/dl ed capilla 06:[address] Basic metabolic panel (01-27-2017 05:35) Serum 01-27-2 = 137 136-145 complet sodium 017 mmoL/L [...] SQUARE METERS Comment: If this patient is -[place], then multiply the Comment: result by 1.210. Estimat 2 = 64 50-200 complet ion of 017 ML/MIN ed creatin 05:35 ine renal clearan ce Serum = 1.4 0.55-1. complet or 017 mg/dL 02 ed plasma 05:35 creatin ine measure ment ( Carbon 2 = 34 21.0-32 complet dioxide 017 mmoL/L .0 ed 05:35 measure ment Serum = 99 98-107 complet or 017 mmoL/L ed plasma 05:35 chlorid e measure ment (mo Serum = 8.5 8.5-10. complet or 017 mg/dL 1 ed plasma 05:35 calcium measure ment (mas Serum 2 = 48 7-18 complet or 017 mg/dL ed plasma 05:35 urea nitroge n measure men CBC w auto diff (01-27-2017 05:35) Blood = 9.4 4.8-10. complet leukocy 017 K/MM3 8 ed lauryn 05:35 count (number /volume ) Automat = 17.6 11.5-17 complet ed 017 % .5 ed erythro 05:35 cyte distrib ution width Red = 4.16 4.2-5.4 complet blood 017 M/mm3 ed cell 05:35 count Blood = 277 142-424 complet platele 017 K/mm3 ed t count 05:35 Automat = 7.5 7.4-10. complet ed 017 fl 4 ed blood 05:35 platele t mean volume emmy [place] % = 5.6 % 1.7-9.3 complet 017 [...] cytes 05:35 automat ed count (numb Automat 2 = 2.0 % 0.1-12. complet ed 017 0 ed blood 05:35 eosinop hils/10 0 leukocy t Automat 2 = 0.2 0.0-0.4 complet ed 017 K/mm3 ed blood 05:35 eosinop hil count Baso % = 0.2 % 0.1-2.0 complet 017 ed 05:35 Automat 01-27-2 = 0.0 0-0.2 complet ed 017 K/MM3 ed blood 05:35 basophi l count (count/ vo Glucose capillary blood glucometer (01-26-2017 20:54) Glucose = 130 70-110 complet 017 mg/dl ed capilla 20:[address] Glucose capillary blood glucometer (01-26-2017 17:14) Glucose = 171 70-110 complet 017 mg/dl ed capilla 17:[address] Comprehensive metabolic panel (01-26-2017 13:15) Serum 2 = 1.2 0.55-1. complet or 017 mg/dL [...] SQUARE METERS Comment: If this patient is -[place], then multiply the Comment: result by 1.210. [...] with AUTO DIFF (12-20-2012 21:05) WBC # 12-20- 10.1 4.8-10. complet Bld 013 K/MM3 8 ed Auto 21:05 RBC # 4.43 4.2-5.4 complet Bld 013 M/mm3 ed Auto 21:05 Hgb 12.4 12.2-16 complet Bld-mCn 013 g/dL .2 ed c 21:05 Hct Fr 37.6 % 37.0-47 complet Bld 013 .0 ed 21:05 MCV RBC 84.9 fl 82.2-97 complet 013 .8 ed 21:05 MCH RBC 28.1 pg 27-31.2 complet Qn 013 ed Auto 21:05 MEAN 33.1 31.8-35 complet CORPUSC 013 g/dl .4 ed ULAR 21:05 HGB CONC RDW RBC 15.4 % 11.5-17 complet Auto 013 .5 ed 21:05 Platele 270 142-424 complet t Bld 013 K/mm3 ed Ql 21:05 Manual MEAN 8.1 fl 7.4-10. complet PLATELE 013 4 ed T 21:05 VOLUME Granulo 09-07-2 67.8 % 37.0-80 complet cytes 013 .0 ed Fr Bld 21:05 Auto LYMPH % 09-07-2 24.0 % 10-50.0 complet 013 ed 21:05 Monocyt 09-07-2 5.6 % 1.7-9.3 complet es Fr 013 ed Bld 21:05 Auto Eosinop 09-07-2 2.2 % 0.1-12. complet hil Fr 013 0 ed Bld 21:05 Auto Basophi 09-07-2 0.3 % 0.1-2.0 complet ls Fr 013 [...] complet ACID 013 mg/dL ed 11:30 Glucose [facility] ([facility] 11:55[facility] Glucose 166 70-110 complet BldC 013 mg/dl ed Glucomt 11:55 [facility] Glucose [facility] (08-19-2012 06:34) Glucose 103 70-110 complet BldC 013 mg/dl ed Glucomt 06:34 [facility] COMPREHENSIVE METABOLIC PANEL (08-19-2012 06:05) Glucose 96 74-106 complet 013 mg/dL ed Bld-n 06:05 c BUN 26 7-18 complet Bld-n 013 mg/dL ed c 06:05 Creat 1.2 [...] Bld 013 M/mm3 ed Auto 06:05 Hgb 2 10.4 12.2-16 complet Bld-mCn 013 g/dL .2 [...] 013 4 ed T 06:05 VOLUME Granulo 08-19-2 50.0 % 37.0-80 complet cytes 013 .0 ed Fr Bld 06:05 Auto LYMPH % 08-19-2 38.9 % 10-50.0 complet 013 ed 06:05 Monocyt 07-2 5.5 % 1.7-9.3 complet es Fr 013 ed Bld 06:05 Auto Eosinop -07-2 5.2 % 0.1-12. complet hil Fr 013 0 ed Bld 06:05 Auto Basophi -07-2 0.3 % 0.1-2.0 complet ls Fr 013 ed Bld 06:05 Auto Granulo -07-2 3.0 1.8-7.8 complet cytes # 013 K/mm3 ed Bld 06:05 Auto Lymphoc 05-07-2 2.4 0.7-4.5 complet ytes Fr 013 K/mm3 ed Bld 06:05 Auto Monocyt 05-07-2 0.3 0.1-1.0 complet es # 013 K/mm3 ed Bld 06:05 Auto Eosinop 05-07-2 0.3 0.0-0.4 complet hil # 013 K/mm3 ed Bld 06:05 Auto Basophi -07-2 0.0 0-0.2 complet ls # 013 K/MM3 ed Bld 06:05 Auto Glucose [facility] (08-18-2012 20:33) Glucose 05-06-2 150 70-110 complet BldC 013 mg/dl ed Glucomt 20:33 r-nc Glucose dC [facility]comtr[facility] (08-18-2012 17:05) Glucose 05-06-2 162 70-110 complet BldC 013 mg/dl ed Glucomt 17:05 r-nc Glucose dC [facility]com[facility] (08-18-2012 11:49) Glucose 05-06-2 130 70-110 complet BldC 013 mg/dl ed Glucomt 11:49 r-[facility] URINALYSIS/COMPLETE (08-18-2012 11:38) URINE 05-06-2 YELLOW YELLOW complet COLOR 013 ed 11:38 URINE 05-06-2 CLEAR CLEAR complet APPEARA 013 ed NCE 11:38 URINE 05-06-2 NEGATIV NEG complet GLUCOSE 013 E ed - 11:38 DIPSTIC K URINE 05-06-2 NEGATIV NEG complet BILIRUB 013 E ed IN - 11:38 DIPSTIC K URINE 05-06-2 NEGATIV NEG complet KETONE 013 E mg/dL ed 11:38 URINE 05-06-2 1.010 1.005-1 complet SPECIFI 013 UNK .030 ed C 11:38 GRAVITY URINE 05-06-2 NEGATIV NEG complet BLOOD 013 E ed [...] #/hpf ed S CELLS 11:38 Glucose dC [facility] (08-18-2012 06:37) Glucose 108 70-110 complet BldC 013 mg/dl ed Glucomt 06:37 [facility] (08-17-2012 21:07) Glucose 08-17- 176 70-110 complet BldC 013 mg/dl ed Glucomt 21:07 [facility] COMPREHENSIVE METABOLIC PANEL (08-17-2012 12:45) Glucose 164 74-106 complet 013 mg/dL ed Bld-mCn 12:45 c BUN -05-2 31 7-18 complet Bld-mCn 013 mg/dL ed c 12:45 Creat -05-2 1.2 0.6-1.0 complet SerPl-m 013 mg/dL ed Cnc 12:45 ESTIMAT -05-2 83 50-200 complet ED 013 ML/MIN ed CREATIN 12:45 INE CLEARAN CE GFR 08-17-2 46 59- complet (ESTIMA 013 ML/MIN ed JULIANNE) 12:45 Sodium -05-2 138 136-145 complet SerPl-s 013 mmoL/L ed Cnc 12:45 Potassi -05-2 2.4 3.5-5.1 Low complet um 013 mmoL/L alert ed SerPl-s 12:45 Cnc Chlorid -05-2 98 98-107 complet e 013 mmoL/L ed [...] K/MM3 ed Bld 12:45 Auto Glucose BldC Glucomtr-mCnc (06-01-2012 06:56) Glucose 101 70-110 complet BldC 013 mg/dl ed Glucomt 06:56 r-[facility] Glucose BldC Glucomtr-nc (05-31-2012 20:27) Glucose 161 70-110 complet BldC 013 mg/dl ed Glucomt 20:27 r-nc Glucose BldC Glucomtr-mCnc (05-31-2012 16:53) Glucose 115 70-110 complet BldC 013 mg/dl ed Glucomt 16:53 r-[facility] BASIC METABOLIC PANEL (05-31-2012 12:22) Glucose 114 [...] 1 ed SerPl-m 12:22 Cnc Glucose dC Glucomtr-[facility] (05-31-2012 11:57) Glucose 175 70-110 complet BldC 013 mg/dl ed Glucomt 11:57 r-mCky Glucose BldC Glucomtr-[facility] (05-31-2012 09:35) Glucose 105 70-110 complet BldC 013 mg/dl ed Glucomt 09:35 r-[facility] Glucose dC Glucomtr-[facility] (05-31-2012 07:47) Glucose 170 70-110 complet BldC 013 mg/dl ed Glucomt 07:47 r-[facility] Glucose dC Glucomtr-[facility] (05-31-2012 06:22) Glucose 89 70-110 complet BldC 013 mg/dl ed Glucomt 06:22 r-[facility] Glucose dC Glucomtr-[facility] (05-30-2012 21:31) Glucose 163 70-110 complet BldC 013 mg/dl ed Glucomt 21:31 r-[facility] Glucose dC Glucomtr-[facility] (05-30-2012 16:38) Glucose 150 70-110 complet BldC 013 mg/dl ed Glucomt 16:38 r-[facility] Glucose BldC Glucomtr-[facility] (05-30-2012 11:35) Glucose 104 70-110 complet BldC 013 mg/dl ed Glucomt 11:35 r-[facility] Glucose dC Glucomtr-[facility] (05-30-2012 06:33) Glucose 109 70-110 complet BldC 013 mg/dl ed Glucomt 06:33 r-[facility] BASIC METABOLIC PANEL (05-30-2012 06:32) Glucose 02-15-2 105 74-106 complet 013 mg/dL ed Bld-mCn 06:32 c BUN 15-2 35 7-18 complet Bld-mCn 013 mg/dL ed c 06:32 Creat 15-2 1.3 0.6-1.0 complet SerPl-m 013 mg/dL ed Cnc 06:32 ESTIMAT 05-30-2 81 50-200 complet ED 013 ML/MIN ed CREATIN 06:32 INE CLEARAN CE GFR 05-30-2 42 59- complet (ESTIMA 013 ML/MIN ed JULIANNE) 06:32 Sodium 15-2 140 136-145 complet SerPl-s 013 mmoL/L ed Cnc 06:32 Potassi 05-30-2 3.8 3.5-5.1 complet um 013 mmoL/L ed SerPl-s 06:32 Cnc Chlorid 05-30- 97 98-107 complet e 013 mmoL/L ed SerPl-s 06:32 Cnc CO2 05-30- 33 21.0-32 complet SerPl-s 013 mmoL/L .0 ed Cnc 06:32 Calcium 05-30-2 8.5 8.5-10. complet 013 mg/dL 1 ed SerPl-m 06:32 Cnc CBC with AUTO DIFF (05-30-2012 06:32) WBC # -15-2 7.7 4.8-10. complet Bld 013 K/MM3 8 ed Auto 06:32 RBC # 15-2 4.04 4.2-5.4 complet Bld 013 M/mm3 ed Auto 06:32 Hgb 05-30-2 10.7 12.2-16 complet Bld-mCn 013 g/dL .2 ed c 06:32 Hct Fr 05-30-2 33.9 % 37.0-47 complet Bld 013 .0 ed 06:32 MCV RBC 05-30-2 83.9 fl 82.2-97 complet 013 .8 ed 06:32 MCH RBC 05-30-2 26.4 pg 27-31.2 complet Qn 013 ed Auto 06:32 MEAN 31.5 31.8-35 complet CORPUSC 013 g/dl .4 ed ULAR 06:32 HGB CONC RDW RBC 15.7 % 11.5-17 complet Auto 013 .5 ed 06:32 Platele 02-15-2 386 142-424 complet t Bld 013 K/mm3 ed Ql 06:32 Manual MEAN 02-15-2 7.4 fl 7.4-10. complet PLATELE 013 4 ed T 06:32 VOLUME Granulo 02-15-2 64.0 % 37.0-80 complet cytes 013 .0 [...] 013 K/MM3 ed Bld 06:32 Auto Glucose dC Glucomtr-[facility] (05-29-2012 21:06) Glucose 148 70-110 complet BldC 013 mg/dl ed Glucomt 21:06 r-[facility] Glucose BldC Glucomtr-[facility] (05-29-2012 16:53) Glucose 110 70-110 complet BldC 013 mg/dl ed Glucomt 16:53 r-[facility] Glucose BldC Glucomtr-[facility] (05-29-2012 11:57) Glucose 177 70-110 complet BldC 013 mg/dl ed Glucomt 11:57 r-[facility] Glucose BldC Glucomtr-[facility] (05-29-2012 09:46) Glucose 139 70-110 complet BldC 013 mg/dl ed Glucomt 09:46 r-[facility] Glucose BldC Glucomtr-nc (05-29-2012 06:13) Glucose 115 70-110 complet BldC 013 mg/dl ed Glucomt 06:13 r-nc THYROID STIM HORMONE (05-29-2012 00:01) THYROID 3.96 [...] 013 gm/dL ed Ser-mCn 23:50 c Albumin --2 0.7 UNK 1.1-1.8 complet /Glob 013 ed SerPl-m 23:50 Rto Bilirub 05-28-2 0.3 0.2-1.0 complet 013 mg/dL ed SerPl-m 23:50 Cnc AST 05-28-2 20 U/L 15-37 complet SerPl-c 013 ed Cnc 23:50 ALT 05-28-2 35 U/L 30-65 complet SerPl-c 013 ed Cnc 23:50 ALP --2 146 U/L 50-136 complet SerPl-c 013 ed Cnc 23:50 BNP Bld-mCnc (05-28-2012 23:50) BNP 05-28-2 345 0-100 complet Bld-mCn 013 pg/mL ed c 23:50 CBC with AUTO DIFF (05-28-2012 23:50) WBC # 02-13-2 10.9 4.8-10. complet Bld 013 K/MM3 8 ed Auto 23:50 RBC # 02-2 3.91 4.2-5.4 complet Bld 013 M/mm3 ed Auto 23:50 Hgb 05-28-2 10.3 12.2-16 complet Bld-mCn 013 g/dL .2 ed c 23:50 Hct Fr 05-28-2 32.1 % 37.0-47 complet Bld 013 .0 [...] DOS Code Location Performer Comment PRTBLE E0431 [facility] [place], [facility] [place], GASEOUS 5 INC INC O2 SYS RENT; FLWMTR HUMIDFR&M ASK O2 CONC 1 E1390 [facility] [place], [facility] [place], DEL PORT 5 INC INC 85%/>02 CONC AT PRSC FLW RATE REPL PATRICIO A4233 DIABETIC DIABETIC ALKALINE 5 EXPERTS EXPERTS NOT J OF OF CELL EVELIN KALPESH KALPESH BG MON OWND PT LANCETS A4259 DIABETIC DIABETIC PER BOX 5 EXPERTS EXPERTS OF 100 OF OF [place] KALPESH BLD GLU A4253 DIABETIC DIABETIC TEST/REAG 5 EXPERTS EXPERTS T STRIPS OF OF HOME BLD K[place]PES[place] KALPES[place] GLU MON-50 NORMAL A4256 DIABETIC DIABETIC LOW AND 5 EXPERTS EXPERTS HIGH OF OF CALIBRATO KALPESH KALPESH R SOLUTION/ CHIPS ADMN SET A7003 [facility] [place], [facility]OL 5 INC INC NONFILTR PNEUMAT NEBULIZR DISPBL ALBUTEROL J7620 RELIANT RELIANT TO 2.5 5 PHARMACY PHARMACY MG & SERVICES SERVICES IPRATROPI UM BROM TO 0.5 MG PHRM Q0513 RELIANT RELIANT DISPENSIN 5 PHARMACY PHARMACY G FEE SERVICES SERVICES INHALATIO N RX; PER 30 DAYS PRTBLE E0431 [facility], GASEOUS 5 INC INC O2 SYS RENT; FLWMTR HUMIDFR&M ASK O2 CONC 1 E1390 [facility] PORT 5 INC INC 85%/>02 CONC AT PRSC FLW RATE PHRM Q0513 RELIANT RELIANT DISPENSIN 5 PHARMACY PHARMACY G FEE SERVICES SERVICES INHALATIO N RX; PER 30 DAYS ALBUTEROL J7620 RELIANT RELIANT TO 2.5 5 PHARMACY PHARMACY MG & SERVICES SERVICES IPRATROPI UM BROM TO 0.5 MG [facility] T1999 [facility] ITEMS & 5 TRACE TRACE SPL AREA AREA RETAIL AGENCY ON AGENCY ON PURCHASE NOC HOME CARE S5108 [facility] 5 TRACE TRACE HOME AREA AREA CARE AGENCY ON AGENCY ON CLIENT PER 15 MIN PRTBLE E0431 [facility], [place] 5 INC INC O2 SYS RENT; FLWMTR HUMIDFR&M ASK O2 CONC 1 E1390 [facility] 5 INC INC 85%/>02 CONC AT PRS FLW RATE HOME CARE S5108 [facility] 5 TRACE TRACE HOME AREA AREA CARE AGENCY ON AGENCY ON CLIENT PER 15 MIN [facility] [place] T1999 [facility] ITEMS & 5 TRACE TRACE SPL AREA AREA RETAIL AGENCY ON AGENCY ON PURCHASE NOC PHYSICAL 07828 JESSICA LOPEZ THERAPY 5 [facility] EVALUATIO INC INC N THERAPEUT 90579 JESSICA LOPEZ IC PX 1/> 5 [facility] AREAS INC INC EACH 15 MIN EXERCISES HOME CARE S5108 [facility] 5 TRACE TRACE HOME AREA AREA CARE AGENCY ON AGENCY ON CLIENT PER 15 MIN PRTBLE E0431 [facility], [place] 5 INC INC O2 SYS RENT; FLWMTR HUMIDFR&M ASK O2 CONC 1 E1390 [place] 5 INC INC 85%/>02 CONC AT [facility] FLW RATE PHRM Q0513 RELIANT RELIANT DISPENSIN 5 PHARMACY PHARMACY G FEE SERVICES SERVICES INHALATIO N RX; PER 30 DAYS ALBUTEROL J7620 RELIANT RELIANT TO 2.5 5 PHARMACY PHARMACY MG & SERVICES SERVICES IPRATROPI UM BROM TO 0.5 MG RADEX 37427 JESSICA LOPEZ SHOULDER 5 [facility] COMPLETE INC INC MINIMUM 2 VIEWS LANCETS A4259 DIABETIC DIABETIC PER BOX 5 EXPERTS EXPERTS OF 100 OF OF KALPESH KALPESH NORMAL A4256 DIABETIC DIABETIC LOW AND 5 EXPERTS EXPERTS HIGH OF OF 1-800-DENTISTATO KALPESH KALPESH R SOLUTION/ [place]-PO A4258 DIABETIC DIABETIC WERED 5 EXPERTS EXPERTS DEVICE OF OF [employer] KALPESH LANCET EACH BLD GLU A4253 DIABETIC DIABETIC TEST/REAG 5 EXPERTS EXPERTS T STRIPS OF OF HOME BLD KALPESH KALPESH GLU MON-50 MISC TX T1999 [facility] ITEMS & 5 TRACE TRACE SPL AREA AREA RETAIL AGENCY ON AGENCY ON PURCHASE NOC HOME CARE S5108 [facility] TRAINING 5 TRACE TRACE HOME AREA AREA CARE AGENCY ON AGENCY ON CLIENT PER 15 MIN ECG 64674 JESSICA JOY JR ROUTINE 5 [facility] W/LEAST P 12 LDS I&R ONLY RADIOLOGI 62716 [facility] C EXAM 5 MEDICAL HANNY CHEST 2 IMAGING VIEWS ASS FRONTAL&L ATERAL HOME CARE S5108 [facility] TRAINING 5 TRACE TRACE HOME AREA AREA CARE AGENCY ON AGENCY ON CLIENT PER 15 MIN PHRM Q0513 RELIANT RELIANT DISPENSIN 5 PHARMACY PHARMACY G FEE SERVICES SERVICES INHALATIO N RX; PER 30 DAYS ADMN SET A7005 KAYA KIRKPATRICK, W/SM VOL 5 INC INC NONFILTR NEBULIZR NON-DISPB L ALBUTEROL J7620 RELIANT RELIANT TO 2.5 5 PHARMACY PHARMACY MG & SERVICES SERVICES IPRATROPI UM BROM TO 0.5 MG O2 CONC 1 E1390 KAYA KIRKPATRICK [facility] PORT 5 INC INC 85%/>02 CONC AT [facility] FLW RATE PRTBLE E0431 [facility] [place] [facility] [place], [place] 5 INC INC O2 SYS RENT; FLWMTR HUMIDFR&M ASK HOME CARE S5108 [facility] 5 TRACE TRACE HOME AREA AREA CARE AGENCY ON AGENCY ON CLIENT PER 15 MIN MISC TX T1999 [facility] ITEMS & 5 TRACE TRACE SPL AREA AREA RETAIL AGENCY ON AGENCY ON PURCHASE NOC HOME CARE S5108 [facility] 5 TRACE TRACE HOME AREA AREA CARE AGENCY ON AGENCY ON CLIENT PER 15 MIN PRTBLE E0431 [facility] [place] [facility] [place], GASE[facility] 5 INC INC O2 SYS RENT; FLWMTR HUMIDFR&M ASK O2 CONC 1 E1390 [facility], [place] 5 INC INC 85%/>02 CONC AT PRSC FLW RATE PHRM Q0513 RELIANT RELIANT DISPENSIN 5 PHARMACY PHARMACY G FEE SERVICES SERVICES INHALATIO N RX; PER 30 DAYS ALBUTEROL J7620 RELIANT RELIANT TO 2.5 5 PHARMACY PHARMACY MG & SERVICES SERVICES IPRATROPI UM BROM TO 0.[address] [facility] 5 TRACE TRACE HOME AREA AREA CARE AGENCY ON AGENCY ON CLIENT PER 15 MIN MISC TX T1999 [facility] ITEMS & 5 TRACE TRACE SPL AREA AREA RETAIL AGENCY ON AGENCY ON PURCHASE NOC MISC TX T1999 [facility] ITEMS & 5 TRACE TRACE SPL AREA AREA RETAIL AGENCY ON AGENCY ON PURCHASE NOC HOME CARE S5108 [facility] 5 TRACE TRACE HOME AREA AREA CARE AGENCY ON AGENCY ON CLIENT PER 15 MIN ALBUTEROL J7620 RELIANT RELIANT TO 2.5 5 PHARMACY PHARMACY MG & SERVICES SERVICES IPRATROPI UM BROM TO 0.5 MG PHRM Q0513 RELIANT RELIANT DISPENSIN 5 PHARMACY PHARMACY G FEE SERVICES SERVICES INHALATIO N RX; PER 30 DAYS PRTBLE E0431 [facility] [place] [facility] [place], [place] 5 INC INC O2 SYS RENT; FLWMTR HUMIDFR&M ASK O2 CONC 1 E1390 [facility] [place] [facility] [place], [place] PORT 5 INC INC 85%/>02 CONC AT PRSC FLW RATE HOME CARE 05-04-201 S5108 [facility] TRAINING 5 TRACE TRACE HOME AREA AREA CARE AGENCY ON AGENCY ON CLIENT PER 15 MIN HOME CARE S5108 [facility] TRAINING 5 TRACE TRACE HOME AREA AREA CARE AGENCY ON AGENCY ON CLIENT PER 15 MIN COMPUTER- 61737 [facility] AIDED 5 DETECTION RADIOLOGY RADIOLOGY ASSOCIAT ASSOCIAT SCREENING MAMMOGRAP HY SCREENING G0202 [facility] 5 EIDER CHLOE MAMMOGRAP RADIOLOGY HY NIESHA ASSOCIAT INCL CAD WHEN PERFORMD HOME CARE S5108 [facility] TRAINING 5 TRACE TRACE HOME AREA AREA CARE AGENCY ON AGENCY ON CLIENT PER 15 MIN RADIOLOGI 26677 [facility] C EXAM 5 MEDICAL DOMENIC CHEST 2 IMAGING VIEWS ASS FRONTAL&L ATERAL CYANOCOBA 97771 JESSICA LOPEZ MATT 5 [facility] VITAMIN INC INC B-12 BLOOD 96794 JESSICA LOPEZ COUNT 5 [facility] COMPLETE INC INC AUTO&AUTO DIFRNTL WBC HEMOGLOBI 30408 JESSICA LOPEZ N 5 [facility] GLYCOSYLA INC INC JULIANNE A1C COMPREHEN 69593 JESSICA LOPEZ SIVE 5 [facility] METABOLIC INC INC PANEL COLLECTIO 63315 JESSICA LOPEZ N VENOUS 5 [facility] BLOOD INC INC VENIPUNCT URE LIPID 89366 JESSICA LOPEZ PANEL 5 [facility] INC INC MISC [place] T1999 [facility] ITEMS & 5 TRACE TRACE SPL AREA AREA RETAIL AGENCY ON AGENCY ON PURCHASE NOC MISC TX T1999 [facility] ITEMS & 5 TRACE TRACE SPL AREA AREA RETAIL AGENCY ON AGENCY ON PURCHASE NOC HOME CARE S5108 [facility] TRAINING 5 TRACE TRACE HOME AREA AREA CARE AGENCY ON AGENCY ON CLIENT PER 15 MIN HOME CARE S5108 [facility] TRAINING 5 TRACE TRACE HOME AREA AREA CARE AGENCY ON AGENCY ON CLIENT PER 15 MIN RADIOLOGI 71121 [facility] ELIUD C EXAM 5 MEDICAL DOMENIC CHEST 2 IMAGING VIEWS ASS FRONTAL&L ATERAL RADEX 26761 [place] EL[facility]UD WRIST 5 MEDICAL DOMENIC COMPLETE IMAGING MINIMUM 3 ASS VIEWS APPLICATI 74564 JESSICA LOPEZ ON SHORT 5 [facility] ARM INC INC SPLINT FOREARM-H AND STATIC CT THORAX 56322 JESSICA LOPEZ W/O 5 [facility] CONTRAST INC INC MATERIAL RADEX 25753 JESSICA LOPEZ ANKLE 4 [facility] COMPLETE INC INC MINIMUM 3 VIEWS RADEX 29329 JESSICA LOPEZ ANKLE 4 [facility] COMPLETE INC INC MINIMUM 3 VIEWS RADEX 54641 JESSICA LOPZE ANKLE 4 [facility] COMPLETE INC INC MINIMUM 3 VIEWS CATHETER C[address] BASIC [address] PANEL CALCIUM IONIZED BLOOD [address] HEMATOCRI T CATHETER C[address] NAL ANGIOPLAS TY NON-LASER CATH PLMT [address] [facility] & [address] [place] [address] ARTS W/NJX & ANGIO IMG S&I BLOOD [address] PLATELET AUTOMATED BASIC 32622 JESSICA LOPEZ METABOLIC 4 [facility] PANEL INC INC [facility] G0378 JESSICA LOPEZ OBSERVATI 4 [facility] ON INC INC SERVICE PER HOUR COLLECTIO 90875 JESSICA LOPEZ N VENOUS 4 [facility] BLOOD INC INC VENIPUNCT URE PRESSURIZ 26298 JESSICA LOPEZ ED/NONPRE 4 [facility] SSURIZED INC INC INHALATIO N TREATMENT NONINVASI 76636 JESSICA LOPEZ VE 4 [facility] EAR/PULSE INC INC OXIMETRY SINGLE DETER GLUC BLD 66023 JESSICA LOPEZ GLUC MNTR 4 [facility] DEV INC INC CLEARED FDA SPEC HOME USE BLOOD 04596 JESSICA LOPEZ COUNT 4 [facility] COMPLETE INC INC AUTO&AUTO DIFRNTL WBC GLUC BLD 17437 JESSICA LOPEZ GLUC MNTR 4 [facility] DEV INC INC CLEARED FDA SPEC HOME USE URNLS DIP 67889 JESSICA LOPEZ 4 [facility] STICK/TAB INC INC LET REAGENT AUTO MICROSCOP Y NATRIURET 71167 JESSICA LOPEZ IC 4 [facility] [place] [address] JESSICA LOPEZ TROPONIN 4 [facility] QUANTITAT INC INC MARINE BLOOD 85106 JESSICA LOPEZ COUNT 4 [facility] COMPLETE INC INC AUTO&AUTO DIFRNTL WBC NONINVASI 43278 JESSICA LOPEZ VE 4 [facility] EAR/PULSE [place] [address] JESSICA [facility]OPEZ INFUSION 4 [facility] THERAPY/P INC INC ROPHYLAXI S /DX 1ST TO 1 HR PRESSURIZ 74221 JESSICA LOPEZ ED/NONPRE 4 [facility] SSURIZED INC INC INHALATIO N TREATMENT ECG 62662 JESSICA LOPEZ ROUTINE 4 [facility] ECG INC INC W/LEAST 12 LDS TRCG ONLY W/O I&[place] [address] JESSICA LOPEZ LIPASE 4 [facility] INC INC HOSP[facility] G0378 JESSICA LOPEZ OBSERVATI 4 [facility] ON INC INC SERVICE PER HOUR COMPREHEN 77595 JESSICA LOPEZ SIVE 4 [facility] METABOLIC INC INC PANEL RADIOLOGI 29128 JESSICA LOPEZ C 4 [facility] EXAMINATI INC INC ON CHEST SINGLE VIEW FRONTAL COLLECTIO 76781 JESSICA LOPEZ N VENOUS 4 [facility] BLOOD INC INC VENIPUNCT URE BASIC 26098 JESSICA LOPEZ METABOLIC 4 [facility] PANEL INC INC [facility] G0378 JESSICA [facility]OPEZ OBSERVATI 4 [facility] ON INC INC SERVICE PER HOUR PHYSICAL 80520 JESSICA LOPEZ THERAPY 4 [facility] EVALUATIO INC INC N PRESSURIZ 41706 JESSICA LOPEZ ED/NONPRE 4 [facility] SSURIZED INC INC INHALATIO N TREATMENT NONINVASI 41474 JESSICA LOPEZ VE 4 [facility] EAR/PULSE INC INC OXIMETRY SINGLE DETER BLOOD 34077 JESSICA LOPEZ COUNT 4 [facility] COMPLETE INC INC AUTO&AUTO DIFRNTL WBC THERAPEUT 69691 JESSICA LOPEZ ACTVITY 4 [facility] DIRECT PT INC INC CONTACT EACH 15 MIN URNLS DIP 95174 JESSICA LOPEZ 4 [facility] STICK/TAB INC INC LET REAGENT AUTO MICROSCOP Y GLUC BLD 04819 JESSICA LOPEZ GLUC MNTR 4 [facility] DEV INC INC [place] [address] JESSICA LOPEZ DISTAL 4 [facility] FIBULAR INC INC FRACTURE LAT MALLEOLUS NONINVASI 84740 JESSICA LOPEZ VE 4 [facility] EAR/PULSE [place] [address] JESSICA LOPEZ INFUSION 4 [facility] THERAPY/P INC INC ROPHYLAXI S /DX 1ST TO 1 HR THERAPEUT 13005 JESSICA LOPEZ IC 4 [facility] INJECTION INC INC IV PUSH EACH NEW DRUG SUSCEPTIB 18918 JESSICA LOPEZ LTY STDY 4 [facility] ANTIMICRB INC INC IAL MICRO/AGA R DILUTJ PRESSURIZ 02306 JESSICA LOPEZ ED/NONPRE 4 [facility] SSURIZED INC INC INHALATIO N TREATMENT RADIOLOGI 52727 JESSICA LOPEZ C 4 [facility] EXAMINATI INC INC ON ANKLE 2 VIEWS GUIDE C1769 JESSICA LOEPZ WIRE 4 [facility] INC INC CULTURE 28804 JESSICA LOPEZ BACTERIAL 4 [facility] INC INC QUANTTATI VE COLONY COUNT URINE CULTURE 09188 JESSICA LOPEZ BCT 4 [facility] ISOL&PRSM INC INC PTV ID ISOLATE EA URINE HOSPITAL G0378 JESSICA LOPEZ OBSERVATI 4 [facility] ON INC INC SERVICE PER HOUR TX PROC G0238 JESSICA LOPEZ IMPRV 4 [facility] RESP INC INC FUNCT NOT G0237 FCE-FCE 15MIN FLUOROSCO 80562 JESSICA LOPEZ PY SPX UP 4 [facility] TO 1 INC INC HOUR PHYS/QHP TIME ANCHOR/SC C1713 JESSICA LOPEZ REW 4 [facility] OPPOSING INC INC BN-TO-BN/ SOFT TISSUE-TO -BN RADEX 61472 JESSICA LOPEZ ANKLE 4 [facility] COMPLETE INC INC MINIMUM 3 VIEWS ECG 44578 JESSICA LOPEZ ROUTINE 4 [facility] ECG INC INC W/LEAST 12 LDS TRCG ONLY W/O I&R RADIOLOGI 42856 JESSICA LOPEZ C EXAM 4 [facility] CHEST 2 INC INC VIEWS FRONTAL&L ATERAL RADEX 15704 JESSICA LOPEZ ANKLE 4 [facility] COMPLETE INC INC MINIMUM 3 VIEWS CLOSURE 86.59 M. Saturnino MANZANO & [place] COPEL[facility] SUBCUTANE OUS NEC Encounters Encounter Start End Date Code Location Performer Type Date OFFICE 93307 [facility] OUTPATI[facility] 5 5 [facility] 25 MINUTES OFFICE 79018 [facility] 5 5 [facility] JYOTI T VISIT INTERNAL 15 MED MINUTES OFFICE 89758 [facility] OUTPATIEN 5 5 PHYSICIAN RAMONE T VISIT S GROUP 15 MINUTES HOSPITAL [facility] - 5 5 [facility] OUTPATIEN INC T OFFICE 03025 [facility] PETTEY OUTPATIEN 5 5 PHYSICIAN JAM T VISIT S GROUP 25 MINUTES HOSPITAL JESSICA - 5 5 [facility] OUTPATIEN INC T OFFICE 81049 [facility] OUTPATIEN 5 5 PHYSICIAN RAMONE T NEW 45 S GROUP MINUTES OFFICE 65027 [facility] 5 5 VALLEY JYOTI T VISIT INTERNAL 15 MED MINUTES HOSPITAL [facility] 5 5 [facility] 5 [facility] JESSICA - 5 5 [facility] OUTPATIEN INC T OFFICE 09655 [facility] 5 5 [facility] V[facility] INTERNAL 25 MED MINUTES OFFICE 23075 JESSICA [facility]IV[facility]ERNABE OUTPATIEN 5 5 [facility] 15 MINUTES EMERGENCY 32167 JESSICA 5 5 [facility] DEPARTMEN [facility] VISIT MODERATE [facility]VERITY HOSPITAL JESSICA - 5 5 [facility] OUTPATIEN [facility] JESSICA [facility] 5 5 [facility] OUTPATIEN [facility] JESSICA - 4 4 [facility] OUTPATIEN [facility] JESSICA [facility] 4 4 [facility] 4 [facility] [place] [address] 4 [facility] 4 4 [facility] OUTPATIEN [facility] EMERGENCY 19795 JESSICA 4 4 [facility] VISIT HIGH/URGE NT SEVERITY HOSPITAL JESSICA - 4 4 [facility] 4 [facility] OUTPATIEN [facility] JESSICA - 4 4 [facility] VALERY Shaikh MD (ER) 3 20:50 3 21:50 [facility] Emergency VALERY Flowers MD (ER) 3 11:31 3 12:38 [facility] Emergency VALERY Shaikh MD (ER) 3 19:20 3 20:31 [facility] Inpatient IMP Jessica Blanca (IN) 3 12:50 3 14:20 [facility] Inpatient IMP Jessica Kam MD (IN) 3 23:10 3 10:45 [facility]
--- OUTSIDE RECORDS SUMMARY | 2017-02-03 22:14 | External Medical Summary Rpt | CCD ---
Author Author , DWIGHT QUINTANILLA Address Unknown Phone [email or web address] Care Team Providers Care Intellectual Property Paralegal Name Role Phone BEINEKE HANNY, BEINEKE Unavailable Unavailable HANNY BESSON JYOTI, BESSON Unavailable Unavailable JYOTI SUSANNAH VAM[facility], Unavailable Unavailable SUSANNAH V[facility] Un[facility] Unavailable [facility], [facility] Unavailable Unavailable [facility], [facility] ELIUD DOMENIC, Unavailable Unavailable ELIUD DOMENIC [facility] Unavailable Unavailable [place], [facility] [place] [facility] Unavailable Unavailable [place], [facility] [place] FRYMAN EUG, FRYMAN Unavailable Unavailable EUG HAGENSCHREYES CHLO[facility], Unavailable Unavailable HAGENSCHNEIDER CHLO[facility] Un[facility], [facility] Unavailable Unavailable HOSPITAL P, [facility], [facility]available Unavailable [facility] Un[facility], [facility] Unavailable Unavailable [facility], [facility] SMITH RAMONE, SMITH Unavailable Unavailable RAMONE RUFINO JR DWI, RUFINO Unavailable Unavailable JR DWI [facility] Unavailable Unavailable INTERNAL MED, [facility], Unavailable Unavailable [facility], Unavailable Unavailable [facility] Leanne Shaikh MD, Unavailable Unavailable Leanne Shaikh MD [facility] Unavailable Unavailable ASSOCIAT, [facility] Unavailable Unavailable MEDICAL, [facility] MEDICAL PETTEY JAM, PETTEY Unavailable Unavailable JAM [facility] Unavailable Unavailable SERVICES, [facility] [place], Unavailable Unavailable [facility] Eduin Blanca MD, Unavailable Unavailable Eduin Blanca MD Purpose Continuity of Care Document - 05-28-2012 through 2016 Problems Code Diagnosis DOS Provider Status J449 CHRONIC 02-24-2015 [facility]STRUCTIVE INC PULMONARY DISEASE UNS E119 TYPE 2 02-15-2015 DIABETIC DIABETES EXPERTS OF MELLITUS [place] WITHOUT COMPLICATIO NS L68820 DERMATOCHAL 01-31-2015 [facility] IN[facility] EYELID Z961 PRESENCE OF 01-31-2015 [facility] LENS J0100 ACUTE 01-28-2015 [facility] SINUSITIS INTERNAL UNSPECIFIED MED M722 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 [facility] FIBROMATOSI INTERNAL S MED I10 ESSENTIAL 01-20-2015 [facility] HYPERTENSIO AGENCY ON N 4280 CONGESTIVE 12-29-2014 [facility] FAILURE AGENCY ON UNSPECIFIED 428 HEART 12-28-2014 [place] [facility]URE [facility] AGENCY ON 496 CHRONIC 12-25-2014 [facility] [place] [place] 83742 ACUTE 12-16-2014 [facility], PHYSICIANS WITHOUT GROUP MENTION OF OBSTRUCTIO 61269 UNSPEC 11-30-2014 [facility] BURSAE&TEND INC ONS SHOULDER REGION 7262 OTHER 11-30-2014 [facility]FFECTIONS [facility] OF SHOULDER INC REGION NEC V571 OTHER 11-30-2014 [facility] THERAPY INC 7273 OTHER 11-26-2014 [facility] BURS[facility] PHYSICIANS DISORDERS GROUP 07578 PAIN IN 11-18-2014 [place] [facility], MEDICAL SHOULDER IMAGING ASS REGION 88674 DIAB W/O 11-17-2014 DIABETIC COMP TYPE EXPERTS OF II/UNS NOT [place] STATED UNCNTRL 08264 HYPERTENSIV 11-14-2014 [facility] HEART [facility] DISEASE [facility] UNSPEC W/HEART FAIL 62854 OBST 11-14-2014 [facility] CHRONIC [facility] BRONCHITIS [facility] P W/ACUTE BRONCHITIS 5939 UNSPECIFIED 11-14-2014 [facility] KIDNEY [facility] P AND URETER 51901 CHEST PAIN 11-14-2014 [place] 250 DIABETES 11-04-2014 [facility] AGENCY ON 4760 CHRONIC 10-30-2014 [facility] 2320 POLYP OF 10-30-2014 [facility] VOCAL CORD PHYSICIANS OR LARYNX GROUP 0672 UNSPECIFIED 10-30-2014 [facility] DISORDER PHYSICIANS OF GROUP SKIN&SUBCUT ANEOUS TISSUE 3572 POLYNEUROPA 09-28-2014 [facility] IN [facility] DIABETES INTERNAL MED 27697 ASTHMA, 09-28-2014 [facility] UNSPECIFIED VALLEY , INTERNAL UNSPECIFIED MED STATUS V7612 OTHER 07-20-2014 [place] SCREEN[facility]IONAL MAMMOGRAM MEDICAL 7862 COUGH 07-09-2014 [facility] 3384 CHRONIC 07-07-2014 [facility] PAIN [facility]LEY SYNDROME INTERNAL MED 81393 DYSPHONIA 07-07-2014 [facility] INTERNAL MED 7906 OTHER 07-07-2014 [facility]AL [facility] BLOOD INC CHEMISTRY 15603 GOUTY 06-03-2014 [facility]ROPATHY [facility] INC UNSPECIFIED 4019 UNSPECIFIED 06-03-2014 [facility] ESSENTIAL [facility] HYPERTENSIO INC N 97140 PAIN IN 06-03-2014 [place] [facility] MEDICAL FOREARM IMAGING ASS V1582 PERS HX 06-03-2014 [facility]BACCO USE [facility] PRESENTING INC [facility] HE[facility] 67078 SOLITARY 05-05-2014 [facility]ULMONARY [facility] NODULE INC V5878 AFTERCARE 04-01-2014 [facility]LLOW [facility] SURGERY INC MUSCULOSKEL SYSTEM NEC V5416 AFTERCARE 03-10-2014 [facility]ALING [facility] TRAUMATIC INC FRACTURE LOWER LEG 2724 OTHER AND 03-02-2014 [facility] HYPERLIPIDE POLLY 3569 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 [facility] OPATHIC PERIPHERAL NEUROPATHY 64107 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 [facility] [place] CORONARY ARTERY 08791 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 [facility] 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 75966 ESOPHAGEAL 03-02-2014 [facility] 21117 DEHYDRATION 02-19-2014 [facility] 4589 UNSPECIFIED 02-19-2014 [facility] HYPOTENSION INC 7802 SYNCOPE AND 02-19-2014 [facility]APSE [facility] 78339 SHORTNESS 02-19-2014 [facility] OF BREATH [facility] INC V1090 PERSONAL 02-19-2014 [facility] HISTORY [facility] UNSPECIFIED INC MALIGNANT NEOPLASM V1254 PERSONAL HX 02-19-2014 [facility] TIA [facility] CI [facility] W/O INC RESIDUAL DEFICITS 26361 MORBID 02-16-2014 [facility]ITY [facility] INC 5990 URINARY 02-16-2014 [facility] TRACT [facility] INFECTION INC SITE NOT SPECIFIED 36954 MALUNION OF 02-16-2014 [facility]RACTURE [facility] INC 8248 UNSPECIFIED 02-16-2014 [facility] CLOSED [facility] FRACTURE OF INC ANKLE V1581 PERS HX 02-16-2014 [facility] NONCOMPLIAN [facility] CE W/MED TX INC PRS HAZARDS HLTH V8541 BODY MASS 02-16-2014 [facility] INDEX [facility] 40.0-44.9 INC ADULT 276.8 Hypokalemia [facility] 416.9 Cor [place] pulmonale [facility] [id number] Gastritis [facility] [id number] Pulmonary [facility] [id number] Chronic [facility] Allergies, Adverse Reactions, Alerts Type [...] RO 07 -0 SE 90 6- Lo MN 07 20 ng DE 32 13 er [...] 5 ti MG ve TA BL ET MN 11 05 1 No RA 52 -0 [...] TF 07 -0 OR 90 5- Lo MN 17 20 ng N 22 13 er [...] 1 Ac TA ti BL ve ET CA 00 02 2 No OM 64 -1 [...] RO 40 -1 SE 96 4- Lo MN 10 20 ng DE 20 13 er [...] TF 07 -1 OR 90 4- Lo MN 17 20 ng N 22 13 er [...] 0M ti G ve Ta bl et CA 00 02 3 No OT 00 -1 [...] 017 K/mm3 ed monocyt 20:50 e count Davis % = 5.6 % 1.7-9.3 complet 017 [...] RESULTS CALLED TO Tacho SOMMERS RN 02/03/17 7724 Ti Yu Glucose capillary blood glucometer (02-01-2017 [...] blood 07:00 platele t mean volume emmy Davis % = 7.6 % 1.7-9.3 complet 017 [...] SQUARE METERS Comment: If this patient is -Grenadian, then multiply the Comment: result by 1.210. [...] blood 09:20 platele t mean volume emmy Davis % = 4.6 % 1.7-9.3 complet 017 [...] SQUARE METERS Comment: If this patient is -Grenadian, then multiply the Comment: result by 1.210. [...] auto diff (01-28-2017 06:17) Comment: COMMENTS TO ACID DUMPER: 0600 Baso % = 0.1 % 0.1-2.0 [...] blood 06:17 platele t mean volume emmy Davis % = 4.9 % 1.7-9.3 complet 017 [...] metabolic panel (01-28-2017 06:17) Comment: COMMENTS TO ACID DUMPER: 0600 Protein = 7.4 6.4-8.2 complet total [...] SQUARE METERS Comment: If this patient is -Grenadian, then multiply the Comment: result by 1.210. [...] SQUARE METERS Comment: If this patient is -Grenadian, then multiply the Comment: result by 1.210. [...] blood 05:35 platele t mean volume emmy Davis % = 5.6 % 1.7-9.3 complet 017 [...] SQUARE METERS Comment: If this patient is -Grenadian, then multiply the Comment: result by 1.210. [...] complet ACID 013 mg/dL ed 11:30 Glucose [facility] (08-19-2012 11:55) Glucose 166 70-110 complet BldC 013 mg/dl ed Glucomt 11:55 [facility] Glucose [facility] (08-19-2012 06:34) Glucose 103 70-110 complet BldC 013 mg/dl ed Glucomt 06:34 [facility] COMPREHENSIVE METABOLIC PANEL (08-19-2012 06:05) Glucose [...] 013 K/MM3 ed Bld 06:05 Auto Glucose [facility] (08-18-2012 20:33) Glucose 05-06-2 150 70-110 complet BldC 013 mg/dl ed Glucomt 20:33 r-nc Glucose dC [facility] (08-18-2012 17:05) Glucose 05-06-2 162 70-110 complet BldC 013 mg/dl ed Glucomt 17:05 r-nc Glucose dC [facility]com[facility] (08-18-2012 11:49) Glucose 05-06-2 130 70-110 complet BldC 013 mg/dl ed Glucomt 11:49 r-[facility] URINALYSIS/COMPLETE (08-18-2012 11:38) URINE 05-06-2 YELLOW YELLOW [...] #/hpf ed S CELLS 11:38 Glucose dC [facility] (08-18-2012 06:37) Glucose 108 70-110 complet BldC 013 mg/dl ed [facility]comt 06:37 [facility] (08-17-2012 21:07) Glucose 08-17- 176 70-110 complet BldC 013 mg/dl ed Glucomt 21:07 [facility] COMPREHENSIVE METABOLIC PANEL (08-17-2012 12:45) Glucose [...] complet BldC 013 mg/dl ed Glucomt 06:56 r-[facility] Glucose BldC Glucomtr-nc (05-31-2012 20:27) Glucose 161 70-110 complet BldC 013 mg/dl ed Glucomt 20:27 r-nc Glucose BldC Glucomtr-mCnc (05-31-2012 16:53) Glucose 115 70-110 complet BldC 013 mg/dl ed Glucomt 16:53 r-[facility] BASIC METABOLIC PANEL (05-31-2012 12:22) Glucose 114 [...] 1 ed SerPl-m 12:22 Cnc Glucose dC [facility] (05-31-2012 11:57) Glucose 175 70-110 complet BldC 013 mg/dl ed Glucomt 11:57 r-mCnj Glucose BldC [facility] (05-31-2012 09:35) Glucose 105 70-110 complet BldC 013 mg/dl ed Glucomt 09:35 r-[facility] Glucose dC [facility] (05-31-2012 07:47) Glucose 170 70-110 complet BldC 013 mg/dl ed Glucomt 07:47 r-[facility] Glucose dC [facility] (05-31-2012 06:22) Glucose 89 70-110 complet BldC 013 mg/dl ed Glucomt 06:22 r-[facility] Glucose dC [facility] (05-30-2012 21:31) Glucose 163 70-110 complet BldC 013 mg/dl ed Glucomt 21:31 r-[facility] Glucose dC [facility] (05-30-2012 16:38) Glucose 150 70-110 complet BldC 013 mg/dl ed Glucomt 16:38 r-[facility] Glucose BldC [facility] (05-30-2012 11:35) Glucose 104 70-110 complet BldC 013 mg/dl ed Glucomt 11:35 r-[facility] Glucose dC [facility] (05-30-2012 06:33) Glucose 109 70-110 complet BldC 013 mg/dl ed Glucomt 06:33 r-[facility] BASIC METABOLIC PANEL (05-30-2012 06:32) Glucose 02-15-2 [...] K/MM3 ed Bld 06:32 Auto Glucose dC [facility] (05-29-2012 21:06) Glucose 148 70-110 complet BldC 013 mg/dl ed Glucomt 21:06 r-[facility] Glucose BldC [facility] (05-29-2012 16:53) Glucose 110 70-110 complet BldC 013 mg/dl ed Glucomt 16:53 r-[facility] Glucose BldC [facility] (05-29-2012 11:57) Glucose 177 70-110 complet BldC 013 mg/dl ed Glucomt 11:57 r-[facility] Glucose BldC [facility] (05-29-2012 09:46) Glucose 139 70-110 complet BldC 013 mg/dl ed Glucomt 09:46 r-[facility] Glucose BldC Glucomtr-nc (05-29-2012 06:13) Glucose 115 [...] DOS Code Location Performer Comment PRTBLE E0431 [facility] INC O2 SYS RENT; FLWMTR HUMIDFR&M ASK O2 CONC 1 E1390 [facility] DEL PORT 5 INC INC 85%/>02 CONC [...] [place] R SOLUTION/ CHIPS ADMN SET A7003 [facility] INC INC NONFILTR PNEUMAT NEBULIZR DISPBL ALBUTEROL J7620 RELIANT RELIANT TO 2.5 5 PHARMACY PHARMACY MG & SERVICES SERVICES IPRATROPI UM BROM TO 0.5 MG PHRM Q0513 RELIANT RELIANT DISPENSIN 5 PHARMACY PHARMACY G FEE SERVICES SERVICES INHALATIO N RX; PER 30 DAYS PRTBLE E0431 [facility], [facility] 5 INC INC O2 SYS RENT; FLWMTR HUMIDFR&M ASK O2 CONC 1 E1390 [facility] PORT 5 INC INC 85%/>02 CONC AT PRSC FLW RATE PHRM Q0513 RELIANT RELIANT DISPENSIN 5 PHARMACY PHARMACY G FEE SERVICES SERVICES INHALATIO N RX; PER 30 DAYS ALBUTEROL J7620 RELIANT RELIANT TO 2.5 5 PHARMACY PHARMACY MG & SERVICES SERVICES IPRATROPI UM BROM TO 0.5 MG [facility] [place] T1999 [facility] ITEMS & 5 TRACE TRACE SPL AREA AREA RETAIL AGENCY ON AGENCY ON PURCHASE NOC HOME CARE S5108 [facility] 5 TRACE TRACE HOME AREA AREA CARE AGENCY ON AGENCY ON CLIENT PER 15 MIN PRTBLE E0431 [facility], G[facility]OUS 5 INC INC O2 SYS RENT; FLWMTR HUMIDFR&M ASK O2 CONC 1 E1390 [facility] 5 INC INC 85%/>02 CONC AT PRS FLW RATE HOME CARE S5108 [facility] 5 TRACE TRACE HOME AREA AREA CARE AGENCY ON AGENCY ON CLIENT PER 15 MIN [facility] [place] T1999 [facility] ITEMS & 5 TRACE TRACE SPL AREA AREA RETAIL AGENCY ON AGENCY ON PURCHASE NOC PHYSICAL 94795 [facility] THERAPY 5 [facility] EVALUATIO INC INC N THERAPEUT 42623 [facility] IC PX 1/> 5 [facility] AREAS INC INC EACH 15 MIN EXERCISES HOME CARE S5108 [facility] 5 TRACE TRACE HOME AREA AREA CARE AGENCY ON AGENCY ON CLIENT PER 15 MIN PRTBLE E0431 [facility], [facility] 5 INC INC O2 SYS RENT; FLWMTR HUMIDFR&M ASK O2 CONC 1 E1390 [facility], DEL PORT 5 INC INC 85%/>02 CONC AT [facility] FLW RATE PHRM Q0513 RELIANT RELIANT DISPENSIN 5 PHARMACY PHARMACY G FEE SERVICES SERVICES INHALATIO N RX; PER 30 DAYS ALBUTEROL J7620 RELIANT RELIANT TO 2.5 5 PHARMACY PHARMACY MG & SERVICES SERVICES IPRATROPI UM BROM TO 0.5 MG RADEX 31071 [facility] SHOULDER 5 [facility] COMPLETE INC INC MINIMUM 2 VIEWS LANCETS A4259 DIABETIC DIABETIC PER BOX 5 EXPERTS EXPERTS OF 100 OF OF [place] K[place] NORMAL A4256 DIABETIC DIABETIC LOW AND 5 EXPERTS EXPERTS HIGH OF OF Digital [employer] TechnologiesATO [place] K[place] R SOLUTION/ [place]-PO A4258 DIABETIC DIABETIC WERED 5 EXPERTS EXPERTS DEVICE OF OF [employer] [place] LANCET EACH BLD GLU A4253 DIABETIC DIABETIC TEST/REAG 5 EXPERTS EXPERTS T STRIPS OF OF HOME BLD [place] GLU MON-50 MISC [place] T1999 [facility] ITEMS & 5 TRACE TRACE SPL AREA AREA RETAIL AGENCY ON AGENCY ON PURCHASE NOC HOME CARE S5108 [facility] TRAINING 5 TRACE TRACE HOME AREA AREA CARE AGENCY ON AGENCY ON CLIENT PER 15 MIN ECG 41183 JESSICA JOY JR ROUTINE 5 [facility] W/LEAST P 12 LDS I&R ONLY RADIOLOGI 24471 [facility] C EXAM 5 MEDICAL HANNY CHEST 2 IMAGING VIEWS ASS FRONTAL&L ATERAL HOME CARE S5108 [facility] TRAINING 5 TRACE TRACE HOME AREA AREA [...] MG O2 CONC 1 E1390 KAYA KIRKPATRICK [facility] PORT 5 INC INC 85%/>02 CONC AT [facility] FLW RATE PRTBLE E0431 [facility] 5 INC INC O2 SYS RENT; FLWMTR HUMIDFR&M ASK HOME CARE S5108 [facility] 5 TRACE TRACE HOME AREA AREA CARE AGENCY ON AGENCY ON CLIENT PER 15 MIN MISC [place] T1999 [facility] ITEMS & 5 TRACE TRACE SPL AREA AREA RETAIL AGENCY ON AGENCY ON PURCHASE NOC HOME CARE S5108 [facility] 5 TRACE TRACE HOME AREA AREA CARE AGENCY ON AGENCY ON CLIENT PER 15 MIN PRTBLE E0431 [facility] 5 INC INC O2 SYS RENT; FLWMTR HUMIDFR&M ASK O2 CONC 1 E1390 [facility], DEL PORT 5 INC INC 85%/>02 CONC AT PRSC FLW RATE PHRM Q0513 RELIANT RELIANT DISPENSIN 5 PHARMACY PHARMACY G FEE SERVICES SERVICES INHALATIO N RX; PER 30 DAYS ALBUTEROL J7620 RELIANT RELIANT TO 2.5 5 PHARMACY PHARMACY MG & SERVICES SERVICES IPRATROPI UM BROM TO 0.5 MG HOME CARE S5108 [facility] 5 TRACE TRACE HOME AREA AREA CARE AGENCY ON AGENCY ON CLIENT PER 15 MIN MISC [place] T1999 [facility] ITEMS & 5 TRACE TRACE SPL AREA AREA RETAIL AGENCY ON AGENCY ON PURCHASE NOC MISC [place] T1999 [facility] ITEMS & 5 TRACE TRACE SPL AREA AREA RETAIL AGENCY ON AGENCY ON PURCHASE NOC HOME CARE S5108 [facility] 5 TRACE TRACE HOME AREA AREA CARE AGENCY ON AGENCY ON CLIENT PER 15 MIN ALBUTEROL J7620 RELIANT RELIANT TO 2.5 5 PHARMACY PHARMACY MG & SERVICES SERVICES IPRATROPI UM BROM TO 0.5 MG PHRM Q0513 RELIANT RELIANT DISPENSIN 5 PHARMACY PHARMACY G FEE SERVICES SERVICES INHALATIO N RX; PER 30 DAYS PRTBLE E0431 [facility] 5 INC INC O2 SYS RENT; FLWMTR HUMIDFR&M ASK O2 CONC 1 E1390 [facility] 5 INC INC 85%/>02 CONC AT PRSC FLW RATE HOME CARE 05-04-201 S5108 [facility] TRAINING 5 TRACE TRACE HOME AREA AREA CARE AGENCY ON AGENCY ON CLIENT PER 15 MIN HOME CARE S5108 [facility] TRAINING 5 TRACE TRACE HOME AREA AREA CARE AGENCY ON AGENCY ON CLIENT PER 15 MIN COMPUTER- 23541 [facility] AIDED 5 DETECTION RADIOLOGY RADIOLOGY ASSOCIAT ASSOCIAT SCREENING MAMMOGRAP HY SCREENING G0202 [facility] 5 EIDER CHLOE MAMMOGRAP RADIOLOGY HY NIESHA ASSOCIAT INCL CAD WHEN PERFORMD HOME CARE S5108 [facility] TRAINING 5 TRACE TRACE HOME AREA AREA CARE AGENCY ON AGENCY ON CLIENT PER 15 MIN RADIOLOGI 30561 [facility] C EXAM 5 MEDICAL DOMENIC CHEST 2 IMAGING VIEWS ASS FRONTAL&L ATERAL CYANOCOBA 65886 [facility] MATT 5 [facility] VITAMIN INC INC B-12 BLOOD 35595 [facility] COUNT 5 [facility] COMPLETE INC INC AUTO&AUTO DIFRNTL WBC HEMOGLOBI 81072 [facility] L[facility] N 5 [facility] GLYCOSYLA INC INC JULIANNE A1C COMPREHEN 93923 [facility] SIVE 5 [facility] METABOLIC INC INC PANEL COLLECTIO 82128 [facility] L[facility] N VENOUS 5 [facility] BLOOD INC INC VENIPUNCT URE LIPID 29868 [facility] L[facility] PANEL 5 [facility] INC INC MISC [place] T1999 [facility] ITEMS & 5 TRACE TRACE SPL AREA AREA RETAIL AGENCY ON AGENCY ON PURCHASE NOC MISC [place] T1999 [facility] ITEMS & 5 TRACE TRACE SPL AREA AREA RETAIL AGENCY ON AGENCY ON PURCHASE NOC HOME CARE S5108 [facility] TRAINING 5 TRACE TRACE HOME AREA AREA CARE AGENCY ON AGENCY ON CLIENT PER 15 MIN HOME CARE S5108 [facility] TRAINING 5 TRACE TRACE HOME AREA AREA CARE AGENCY ON AGENCY ON CLIENT PER 15 MIN RADIOLOGI 70451 KENDRA ELIUD C EXAM 5 MEDICAL DOMENIC CHEST 2 IMAGING VIEWS ASS FRONTAL&L ATERAL RADEX 92935 [place] ELIUD WRIST 5 MEDICAL DOMENIC COMPLETE IMAGING MINIMUM 3 ASS VIEWS APPLICATI 98332 [facility] ON SHORT 5 [facility] ARM INC INC SPLINT FOREARM-H AND STATIC CT THORAX 45950 JESSICA [facility] W/O 5 [facility] CONTRAST INC INC MATERIAL RADEX 81934 [facility] ANKLE 4 [facility] COMPLETE INC INC MINIMUM 3 VIEWS RADEX 08988 [facility] ANKLE 4 [facility] COMPLETE INC INC MINIMUM 3 VIEWS RADEX 31476 [facility] ANKLE 4 [facility] COMPLETE INC INC MINIMUM 3 VIEWS CATHETER C[address] BASIC [address] PANEL CALCIUM IONIZED BLOOD [address] HEMATOCRI T CATHETER C[address] NAL ANGIOPLAS TY NON-LASER CATH PLMT 7[address] [facility] & [address] [place] [address] ARTS W/NJX & ANGIO IMG S&I BLOOD [address] PLATELET AUTOMATED BASIC 80588 [facility] METABOLIC 4 [facility] PANEL INC INC [facility] G0378 [facility] OBSERVATI 4 [facility] ON INC INC SERVICE PER HOUR COLLECTIO 97908 [facility] L[facility] N VENOUS 4 [facility] BLOOD INC INC VENIPUNCT URE PRESSURIZ 72241 J[facility] LOPEZ ED/NONPRE 4 [facility] SSURIZED INC INC INHALATIO N TREATMENT NONINVASI 95352 [facility] L[facility] VE 4 [facility] EAR/PULSE INC INC OXIMETRY SINGLE DETER GLUC BLD 95120 [facility] GLUC MNTR 4 [facility] DEV INC INC CLEARED FDA SPEC HOME USE BLOOD 33404 [facility] L[facility] COUNT 4 [facility] COMPLETE INC INC AUTO&AUTO DIFRNTL WBC GLUC BLD 41555 [facility] L[facility] GLUC MNTR 4 [facility] DEV INC INC CLEARED FDA SPEC HOME USE URNLS DIP 64830 [facility] 4 [facility] STICK/TAB INC INC LET REAGENT AUTO MICROSCOP Y NATRIURET 30499 [facility] L[facility] IC 4 [facility] [place] [address] J[facility] LOPEZ TROPONIN 4 [facility] QUANTITAT INC INC MARINE BLOOD 48729 [facility] COUNT 4 [facility] COMPLETE INC INC AUTO&AUTO DIFRNTL WBC NONINVASI 81211 [facility] L[facility] VE [facility] EAR/PULSE [place] [address] JESSICA LOPEZ INFUSION 4 [facility] THERAPY/P INC INC ROPHYLAXI S /DX 1ST TO 1 HR PRESSURIZ 80786 JESSICA LOPEZ ED/NONPRE 4 [facility] SSURIZED INC INC INHALATIO N TREATMENT ECG 85473 JESSICA LOPEZ ROUTINE 4 [facility] ECG INC INC W/LEAST 12 LDS TRCG ONLY W/O I&[place] [address] JESSICA [facility] LIPASE [facility] [id number] [facility] OBSERVATI 4 [facility] ON INC INC SERVICE PER HOUR COMPREHEN 99535 [facility] SIVE 4 [facility] METABOLIC INC INC PANEL RADIOLOGI 31853 [facility] L[facility] C 4 [facility] EXAMINATI INC INC ON CHEST SINGLE VIEW FRONTAL COLLECTIO 51144 JESS[facility] N VENOUS 4 [facility] BLOOD INC INC VENIPUNCT URE BASIC 43645 JESS[facility]OPE[facility] METABOLIC [facility] PANEL [facility] G[facility]8 [facility]BSERVATI [facility] ON INC INC SERVICE PER HOUR PHYSICAL 05400 JESS[facility] L[facility] THERAPY 4 [facility] EVALUATIO INC INC N PRESSURIZ 42434 JESSICA LOPEZ ED/NONPRE 4 [facility] SSURIZED INC INC INHALATIO N TREATMENT NONINVASI 94075 [facility] VE 4 [facility] EAR/PULSE INC INC OXIMETRY SINGLE DETER BLOOD 90061 JESS[facility]Z COUNT 4 [facility] COMPLETE INC INC AUTO&AUTO DIFRNTL WBC THERAPEUT 50734 [facility] ACTVITY 4 [facility] DIRECT PT INC INC CONTACT EACH 15 MIN URNLS DIP 32952 [facility] STICK/TAB INC INC LET REAGENT AUTO MICROSCOP Y GLUC BLD 37382 JESSICA OLPEZ GLUC MNTR 4 [facility] DEV INC [place] [address] JESSICA LOPEZ DISTAL 4 [facility] FIBULAR INC INC FRACTURE LAT MALLEOLUS NONINVASI 18952 JESS[facility] L[facility]Z VE [facility] EAR/PULSE [place] [address] JESSICA LOPEZ INFUSION 4 [facility] THERAPY/P INC INC ROPHYLAXI S /DX 1ST TO 1 HR THERAPEUT 10814 [facility] L[facility] IC [facility] INJECTION INC INC IV PUSH EACH NEW DRUG SUSCEPTIB 84087 JESSICA LOPEZ LTY STDY 4 [facility] ANTIMICRB INC INC IAL MICRO/AGA R DILUTJ PRESSURIZ 10631 JESSICA LOPEZ ED/NONPRE 4 [facility] SSURIZED INC INC INHALATIO N TREATMENT RADIOLOGI 22164 [facility] INC ON ANKLE 2 VIEWS GUIDE C1769 [facility] WIRE [facility] INC CULTURE 44401 [facility] BACTERIAL 4 [facility] INC QUANTTATI VE COLONY COUNT URINE CULTURE 98620 [facility] BCT 4 [facility] ISOL&PRSM INC INC PTV ID ISOLATE EA URINE HOSPITAL [id number] [facility]ERVATI [facility] INC SERVICE PER HOUR TX PROC G0238 J[facility] IMPRV [facility] RESP INC INC FUNCT NOT G0237 FCE-FCE 15MIN FLUOROSCO 18617 JESSICA [facility] PY SPX UP [facility] TO 1 INC INC HOUR PHYS/QHP TIME ANCHOR/SC C1713 [facility] REW [facility] OPPOSING INC INC BN-TO-BN/ SOFT TISSUE-TO -BN RADEX 46397 [facility] ANKLE [facility] COMPLETE INC INC MINIMUM 3 VIEWS ECG 95386 [facility] ROUTINE 4 [facility] ECG INC INC W/LEAST 12 LDS TRCG ONLY W/O I&R RADIOLOGI 00653 JESS[facility] C EXAM 4 [facility] CHEST 2 INC INC VIEWS FRONTAL&L ATERAL RADEX 06674 [facility] ANKLE 4 [facility] COMPLETE INC INC MINIMUM 3 VIEWS CLOSURE 86.59 M[facility] Saturnino MANZANO & [place] SUBCUTANE OUS NEC Encounters Encounter Start End Date Code Location Performer Type Date OFFICE 59693 [facility] OUTPATIEN 5 5 [facility] 25 MINUTES OFFICE 72049 [facility] 5 5 [facility] JYOTI T VISIT INTERNAL 15 MED MINUTES OFFICE 07443 [facility] OUTPATIEN 5 5 PHYSICIAN RAMONE T VISIT S GROUP 15 MINUTES [facility]OSP[facility] - 5 5 [facility] OUT[facility] INC T OFFICE 52337 [facility] PETTEY OUTPATIEN 5 5 PHYSICIAN JAM T VISIT S GROUP 25 MINUTES [facility]OSPITAL [facility] - 5 5 [facility] OUTPATIEN INC T OFFICE 38195 [facility] SM[facility] OUTPATIEN 5 5 PHYSICIAN RAMONE T NEW 45 S GROUP MINUTES OFFICE 46822 [facility] 5 5 [facility] J[facility] T VISIT INTERNAL 15 MED MINUTES [facility]OSP[facility] JESS[facility] 5 5 [facility] OUTPATI[facility] INC T OFFICE 33266 [facility] OUTPATIEN 5 5 [facility] VISIT INTERNAL 25 MED MINUTES OFFICE 60461 JESSICA AVIVABERNABE OUTPATIEN 5 5 [facility] VISIT HOSPITAL 15 MINUT[facility] EMERGENCY 84198 JESSICA 5 5 [facility] VISIT MODERATE [facility]VERITY [facility]OSPITAL JESSICA - 5 5 [facility] OUTPATIEN [facility] JESSICA [facility] 5 5 [facility] 4 4 [facility] [place] [address] [facility] EMERGENCY 14996 JESSICA 4 4 [facility] V[facility] HIGH/URGE NT [facility]VERITY HOSPITAL JESSICA - 4 4 [facility] - 4 4 [facility] VALERY Shaikh MD (ER[facility] 3 20:50 3 21:50 [facility] Emergency VALERY Flowers MD (ER) 3 11:31 3 12:38 [facility] Emergency VALERY Shaikh MD (ER) 3 19:20 3 20:31 [facility] Inpatient IMP Jessica Blanca (IN) 3 12:50 3 14:20 [facility] Inpatient IMP Jessica Kam MD (IN) 3 23:10 3 10:45 [facility]
--- OUTSIDE RECORDS SUMMARY | 2017-02-03 22:17 | External Medical Summary Rpt | CCD ---
Author Author , DWIGHT QUINTANILLA Address Unknown Phone [email or web address] Team Providers Care Editorial Intern Name Role Phone BOSTONJAMEELPAT HANNY, SIMONE Unavailable Unavailable HANNY KAM JYOTI, BESSON Unavailable Unavailable JYOTI SUSANNAH V[facility], Unavailable Unavailable SUSANNAH V[facility] Unavailable Unavailable [facility], [facility] Unavailable Unavailable [facility], [facility] ELIUD DOMENIC, Unavailable Unavailable ELIUD DOMENIC [facility] Unavailable Unavailable [place] [place] [facility] Unavailable Unavailable [place] [place] FRYMAN EUG, FRYMAN Unavailable Unavailable EUG HAGENSCHREYES CHLOE, Unavailable Unavailable HAGENSCHNEIDER CHLOE [facility] Unavailable Unavailable INC, [facility] Unavailable [facility]available H[facility]PITAL P, [facility], Unavailable Unavailable [facility], [facility] Un[facility] Un[facility], [facility] SMITH RAMONE, SMITH Unavailable Unavailable RAMONE RUFINO STYLES DWI, RUFINO Unavailable Unavailable JR DWI [facility] Unavailable Unavailable INTERNAL MED, [facility] INTERNAL MED [facility], Unavailable Unavailable [facility], Unavailable Unavailable [facility] Unavailable Unavailable [facility] Unavailable Unavailable MEDICAL, [facility] MEDICAL PETTEY JAM, PETTEY Unavailable Unavailable JAM [facility] Unavailable Unavailable SERVICES, [facility], Unavailable Unavailable [facility] Purpose Continuity of Care Document - 02-04-2014 through 2016 Problems Code Diagnosis DOS Provider Status J449 CHRONIC 02-24-2015 KAYA, OBSTRUCTIVE INC PULMONARY DISEASE UNS E119 TYPE 2 02-15-2015 DIABETIC DIABETES EXPERTS OF [facility] WITHOUT COMPLICATIO NS [id number] DERMATOCHAL 01-31-2015 [place] [facility] E[facility] U[facility] INSTITUTE EYELID Z961 PRESENCE OF 01-31-2015 [facility] LENS J0100 ACUTE 01-28-2015 [place] SINUSITIS INTERNAL UNSPECIFIED MED M722 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 [place] [facility] FIBROMATOSI INTERNAL S MED I10 ESSENTIAL 01-20-2015 [facility] HYPERTENSIO AGENCY ON N 4280 CONGESTIVE 12-29-2014 [place] FAILURE AGENCY ON UNSPECIFIED 428 HEART 12-28-2014 [place] FAILURE TRACE AREA AGENCY ON 496 CHRONIC 12-25-2014 LINCARE, AIRWAY INC OBSTRUCTION NEC 77121 ACUTE 12-16-2014 [facility] LARYNG[facility]IS, PHYSICIANS WITHOUT GROUP MENTION OF OBSTRUCTIO 12503 UNSPEC 11-30-2014 [facility] BURSAE&TEND INC ONS SHOULDER REGION 7262 OTHER 11-30-2014 [facility] AFFECTIONS [facility] OF SHOULDER INC REGION NEC V571 OTHER 11-30-2014 [facility] PHYSICAL [facility] THERAPY INC 7273 OTHER 11-26-2014 [facility] BURSITIS PHYSICIANS DISORDERS GROUP 98018 PAIN IN 11-18-2014 [place] [facility]INT, MEDICAL SHOULDER IMAGING ASS REGION 31725 DIAB W/O 11-17-2014 DIABETIC COMP TYPE EXPERTS OF II/UNS NOT [place] STATED UNCNTRL 81353 HYPERTENSIV 11-14-[address] [facility] HEART [facility] DISEASE [facility] UNSPEC W/HEART FAIL 92134 OBST 11-14-2014 [facility] BRONCHITIS [facility] P W/ACUTE BRONCHITIS 5939 UNSPECIFIED 11-14-2014 [facility] KIDNEY [facility] AND URETER 89646 CHEST PAIN 11-14-2014 [place] [facility]PECIFIED [facility] 250 DIABETES 11-04-2014 [place] MELLITUS TRACE AREA AGENCY ON 4760 CHRONIC 10-30-2014 [facility] LARYNGITIS PHYSICIANS GROUP 4784 POLYP OF 10-30-2014 [facility] VOCAL CORD PHYSICIANS OR LARYNX GROUP 7099 UNSPECIFIED 10-30-2014 [facility] DISORDER PHYSICIANS OF GROUP SKIN&SUBCUT ANEOUS TISSUE 3572 POLYNEUROPA 09-28-2014 [place] IN [facility] DIABETES INTERNAL MED 33351 ASTHMA, 09-28-2014 [place] UNSPECIFIED VALLEY , INTERNAL UNSPECIFIED MED STATUS V7612 OTHER 07-20-2014 [facility] SCREENING REGIONAL MAMMOGRAM MEDICAL 7862 COUGH 07-09-2014 [facility] 3384 CHRONIC 07-07-2014 [place] PAIN [facility]LEY SYNDROME INTERNAL MED 05812 DYSPHONIA 07-07-2014 [facility]LEY INTERNAL MED 7906 OTHER 07-07-2014 [facility] ABNORMAL [facility] BLOOD INC CHEMISTRY 61523 GOUTY 06-03-2014 [facility]THROPATHY [facility] INC UNSPECIFIED 4019 UNSPECIFIED 06-03-2014 [facility] ESSENTIAL [facility] HYPERTENSIO INC N 42535 PAIN IN 06-03-2014 [place] [facility], MEDICAL FOREARM IMAGING ASS V1582 PERS HX 06-03-2014 [facility] TOBACCO USE [facility] PRESENTING INC [facility] 21486 SOLITARY 05-05-2014 [facility] PULMONARY [facility] NODULE INC V5878 AFTERCARE 04-01-2014 [facility] FOLLOW [facility] SURGERY INC MUSCULOSKEL SYSTEM NEC V5416 AFTERCARE 03-10-2014 [facility] HEALING [facility] TRAUMATIC INC FRACTURE LOWER LEG 2724 OTHER AND 03-02-2014 [facility] HYPERLIPIDE POLLY 3569 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 [facility] OPATHI PERIPHERAL NEUROPATHY 87814 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 [facility] [place] CORONARY ARTERY 75490 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 69109 ESOPHAGEAL 03-02-2014 [facility] 79060 DEHYDRATION 02-19-2014 [facility] INC 4589 UNSPECIFIED 02-19-2014 [facility] HYPOTENSION INC 7802 SYNCOPE AND 02-19-2014 [facility] COLLAPSE [facility] INC 20663 SHORTNESS 02-19-2014 [facility] OF BREATH [facility] INC V1090 PERSONAL 02-19-2014 [facility] HISTORY [facility] UNSPECIFIED INC MALIGNANT NEOPLASM V1254 PERSONAL HX 02-19-2014 [facility] TIA & CI [facility] W/O INC RESIDUAL DEFICITS 71358 MORBID 02-16-2014 [facility] OBESITY [facility] INC 5990 URINARY 02-16-2014 [facility] TRACT [facility] INFECTION INC SITE NOT SPECIFIED 34441 MALUNION OF 02-16-2014 [facility] FRACTURE [facility] [...] [facility] FLW RATE PRTBLE E0431 KAYA KIRKPATRICK, GASEOUS 5 INC INC O2 SYS RENT; FLWMTR HUMIDFR&M ASK NORMAL A4256 DIABETIC DIABETIC LOW AND 5 EXPERTS EXPERTS HIGH OF OF CAL[place]O [place] R SOLUTION/ CHIPS LANCETS A4259 DIABETIC DIABETIC PER BOX 5 EXPERTS EXPERTS OF 100 OF OF [place] BLD GLU A4253 DIABETIC DIABETIC TEST/REAG 5 EXPERTS EXPERTS T STRIPS OF OF HOME BLD [place] GLU MON-50 REPL PATRICIO A4233 DIABETIC DIABETIC ALKALINE 5 EXPERTS EXPERTS NOT J OF OF CELL EVELIN [facility] [place] BG MON OWND PT ADMN SET A7003 KAYA KIRKPATRICK, VOL 5 INC INC NONFILTR PNEUMAT NEBULIZR DISPBL PHRM Q0513 RELIANT RELIANT DISPENSIN 5 PHARMACY PHARMACY G FEE SERVICES SERVICES INHALATIO N RX; PER 30 DAYS ALBUTEROL J7620 RELIANT RELIANT TO 2.5 5 PHARMACY PHARMACY MG & SERVICES SERVICES IPRATROPI UM BROM TO 0.5 MG PRTBLE E0431 [facility], GASEOUS 5 INC INC O2 SYS RENT; FLWMTR HUMIDFR&M ASK O2 CONC 1 E1390 [facility], DEL PORT 5 INC INC 85%/>02 CONC AT PRSC FLW RATE PHRM Q0513 RELIANT RELIANT DISPENSIN 5 PHARMACY PHARMACY G FEE SERVICES SERVICES INHALATIO N RX; PER 30 DAYS ALBUTEROL J7620 RELIANT RELIANT TO 2.5 5 PHARMACY PHARMACY MG & SERVICES SERVICES IPRATROPI UM BROM TO 0.5 MG MISC TX T1999 [facility] ITEMS & 5 TRACE TRACE SPL AREA AREA RETAIL AGENCY ON AGENCY ON PURCHASE NOC HOME CARE S5108 [facility] TRAINING 5 TRACE TRACE HOME AREA AREA CARE AGENCY ON AGENCY ON CLIENT PER 15 MIN PRTBLE E0431 [facility], GASEOUS 5 INC INC O2 SYS RENT; FLWMTR HUMIDFR&M ASK O2 CONC 1 E1390 [facility], DEL PORT 5 INC INC 85%/>02 CONC AT PRSC FLW RATE HOME CARE S5108 [facility] TRAINING 5 TRACE TRACE HOME AREA AREA CARE AGENCY ON AGENCY ON CLIENT PER 15 MIN MISC TX T1999 [facility] ITEMS & 5 TRACE TRACE SPL AREA AREA RETAIL AGENCY ON AGENCY ON PURCHASE NOC PHYSICAL 61106 [facility] THERAPY 5 [facility] EVALUATIO INC INC N THERAPEUT 25440 JESSICA LOPEZ IC PX 1/> 5 [facility] AREAS INC INC EACH 15 MIN EXERCISES HOME CARE S5108 [facility] 5 TRACE TRACE HOME AREA AREA CARE AGENCY ON AGENCY ON CLIENT PER 15 MIN O2 CONC 1 E1390 [facility], [facility], DEL PORT 5 INC INC 85%/>02 CONC AT [facility] FLW RATE PRTBLE E0431 [facility], [facility], GASEOUS 5 INC INC O2 SYS RENT; FLWMTR HUMIDFR&M ASK PHRM Q0513 RELIANT RELIANT DISPENSIN 5 PHARMACY PHARMACY G FEE SERVICES SERVICES INHALATIO N RX; PER 30 DAYS ALBUTEROL J7620 RELIANT RELIANT TO 2.5 5 PHARMACY PHARMACY MG & SERVICES SERVICES IPRATROPI UM BROM TO 0.5 MG RADEX 86437 [facility] L[facility]Z SHOULDER 5 [facility] COMPLETE INC INC MINIMUM 2 V[facility] ITEM[facility] & 5 TRACE TRACE SPL AREA AREA RETAIL AGENCY ON AGENCY ON PURCHASE NOC LANCETS A4259 DIABETIC DIABETIC PER BOX 5 EXPERTS EXPERTS OF 100 OF OF [place] SPRING-PO A4258 DIABETIC DIABETIC WERED 5 EXPERTS EXPERTS DEVICE OF OF FOR [place] LANCET EACH NORMAL A4256 DIABETIC DIABETIC LOW AND 5 EXPERTS EXPERTS HIGH OF OF [place] [facility] R SOLUTION/ CHIPS BLD GLU A4253 DIABETIC DIABETIC TEST/REAG 5 EXPERTS EXPERTS T STRIPS OF OF HOME BLD [place] GLU MON-50 HOME CARE S5108 [facility] TRAINING 5 TRACE TRACE HOME AREA AREA CARE AGENCY ON AGENCY ON CLIENT PER 15 MIN ECG 03008 [facility] JOY JR ROUTINE 5 [facility] W/LEAST P 12 LDS I&R ONLY RADIOLOGI 45887 KENDRA NICHOLS C EXAM 5 MEDICAL HANNY CHEST 2 IMAGING VIEWS ASS FRONTAL&L ATERAL HOME CARE S5108 [facility] 5 TRACE TRACE HOME AREA [...] PER 30 DAYS PRTBLE E0431 [facility], GASEOUS 5 INC INC O2 SYS RENT; FLWMTR HUMIDFR&M ASK O2 CONC 1 E1390 [facility], DEL PORT 5 INC INC 85%/>02 CONC AT PRSC FLW RATE HOME CARE S5108 [facility] 5 TRACE TRACE HOME AREA AREA CARE AGENCY ON AGENCY ON CLIENT PER 15 MIN MISC TX T1999 [facility] ITEMS & 5 TRACE TRACE SPL AREA AREA RETAIL AGENCY ON AGENCY ON PURCHASE NOC HOME CARE S5108 [facility] 5 TRACE TRACE HOME AREA AREA CARE AGENCY ON AGENCY ON CLIENT PER 15 MIN O2 CONC 1 E1390 [facility], DEL PORT 5 INC INC 85%/>02 CONC AT PRSC FLW RATE PRTBLE E0431 [facility], GASEOUS 5 INC INC O2 SYS RENT; FLWMTR HUMIDFR&M ASK PHRM Q0513 RELIANT RELIANT DISPENSIN 5 PHARMACY PHARMACY G FEE SERVICES SERVICES INHALATIO N RX; PER 30 DAYS ALBUTEROL J7620 RELIANT RELIANT TO 2.5 5 PHARMACY PHARMACY MG & SERVICES SERVICES IPRATROPI UM BROM TO 0.5 MG HOME CARE S5108 [facility] 5 TRACE TRACE HOME AREA AREA CARE AGENCY ON AGENCY ON CLIENT PER 15 MIN MISC TX T1999 [facility] ITEMS & 5 TRACE TRACE SPL AREA AREA RETAIL AGENCY ON AGENCY ON PURCHASE NOC MISC TX T1999 [facility] ITEMS & 5 TRACE TRACE SPL AREA AREA RETAIL AGENCY ON AGENCY ON PURCHASE NOC HOME CARE S5108 [facility] TRAIN[facility] 5 TRACE TRACE HOME AREA AREA CARE AGENCY ON AGENCY ON CLIENT PER 15 MIN ALBUTEROL J7620 RELIANT RELIANT TO 2.5 5 PHARMACY PHARMACY MG & SERVICES SERVICES IPRATROPI UM BROM TO 0.5 MG PHRM Q0513 RELIANT RELIANT DISPENSIN 5 PHARMACY PHARMACY G FEE SERVICES SERVICES INHALATIO N RX; PER 30 DAYS PRTBLE E0431 [facility], [facility], GASEOUS 5 INC INC O2 SYS RENT; FLWMTR HUMIDFR&M ASK O2 CONC 1 E1390 [facility], [facility], DEL PORT 5 INC INC 85%/>02 CONC AT PRS FLW RATE HOME CARE S5108 [facility] 5 TRACE TRACE HOME AREA AREA CARE AGENCY ON AGENCY ON CLIENT PER 15 MIN HOME CARE S5108 [facility] 5 TRACE TRACE HOME AREA AREA CARE AGENCY ON AGENCY ON CLIENT PER 15 MIN COMPUTER- 84012 [facility] AIDED 5 DETECTION RADIOLOGY RADIOLOGY ASSOCIAT ASSOCIAT SCREENING MAMMOGRAP HY SCREENING G0202 [facility] 5 EIDER CHLOE MAMMOGRAP RADIOLOGY HY NIESHA ASSOCIAT INCL CAD WHEN PERFORMD HOME CARE S5108 [facility] 5 TRACE TRACE HOME AREA AREA CARE AGENCY ON AGENCY ON CLIENT PER 15 MIN RADIOLOGI 95758 [place] ELI[facility] C EXAM 5 MEDICAL DOMENIC CHEST 2 IMAGING VIEWS ASS FRONTAL&L ATERAL CYANOCOBA 53418 [facility] MATT 5 [facility] VITAMIN INC INC B-12 BLOOD 96705 [facility] COUNT 5 [facility] COMPLETE INC INC AUTO&AUTO DIFRNTL WBC HEMOGLOBI 38102 [facility] L[facility] N 5 [facility] GLYCOSYLA INC INC JULIANNE A1C LIPID 03427 [facility] PANEL 5 [facility] INC INC COMPREHEN 89878 [facility] SIVE 5 [facility] METABOLIC INC INC PANEL COLLECTIO 98538 [facility] L[facility] N VENOUS 5 [facility] BLOOD INC INC VENIPUNCT URE MISC TX T1999 [facility] ITEMS & 5 TRACE TRACE SPL AREA AREA RETAIL AGENCY ON AGENCY ON PURCHASE NOC MISC TX T1999 [facility] ITEMS & 5 TRACE TRACE SPL AREA AREA RETAIL AGENCY ON AGENCY ON PURCHASE NOC HOME CARE S5108 [facility] TRA[facility] 5 TRACE TRACE HOME AREA AREA CARE AGENCY ON AGENCY ON CLIENT PER 15 MIN HOME CARE S5108 [facility] TRA[facility] 5 TRACE TRACE HOME AREA AREA CARE AGENCY ON AGENCY ON CLIENT PER 15 MIN RADIOLOGI 72272 KENDRA DELUCACHER C EXAM 5 MEDICAL DOMENIC CHEST 2 IMAGING VIEWS ASS FRONTAL&L ATERAL RADEX 46919 KENDRA ELIUD WRIST 5 MEDICAL DOMENIC COMPLETE IMAGING MINIMUM 3 ASS VIEWS APPLICATI 80311 [facility] ON SHORT 5 [facility] ARM INC INC SPLINT FOREARM-H AND STATIC CT THORAX 00523 [facility] L[facility] W/O 5 [facility] CONTRAST INC INC MATERIAL RADEX 65319 [facility] ANKLE 4 [facility] COMPLETE INC INC MINIMUM 3 VIEWS RADEX 21539 [facility] ANKLE 4 [facility] COMPLETE INC INC MINIMUM 3 VIEWS RADEX 32342 [facility] ANKLE 4 [facility] COMPLETE INC INC MINIMUM 3 VIEWS BLOOD [address] HEMATOCRI T BLOOD [address] PLATELET AUTOMATED CATH PLMT 61727 [facility] & [address] [place] [address] ARTS W/NJX & ANGIO IMG S&I CATHETER C[address] NAL ANGIOPLAS TY NON-LASER BASIC [address] PANEL CALCIUM IONIZED CATHETER C[address] BASIC 70328 [facility] METABOLIC 4 [facility] PANEL INC INC CALCIUM TOTAL COLLECTIO 04573 J[facility]OPE[facility] N VENOUS 4 [facility] BLOOD INC INC VENIPUNCT [facility] G0378 J[facility] OBSERVATI 4 [facility] ON INC INC SERVICE PER HOUR BLOOD 83425 [facility] COUNT 4 [facility] COMPLETE INC INC AUTO&AUTO DIFRNTL WBC GLUC BLD 81150 [facility] L[facility] GLUC MNTR 4 [facility] DEV INC INC CLEARED FDA SPEC HOME USE NONINVASI 92001 JESSIAC LOPEZ VE 4 [facility] EAR/PULSE INC INC OXIMETRY SINGLE DETER PRESSURIZ 98716 JESSICA LOPEZ ED/NONPRE 4 [facility] SSURIZED INC INC INHALATIO N TREATMENT PRESSURIZ 67997 [facility] LOPEZ ED/NONPRE 4 [facility] SSURIZED [place] [address] J[facility]ICA LOPEZ LIPASE 4 [facility] INC INC NONINVASI 89920 [facility] L[facility] VE 4 [facility] EAR/PULSE [place] [address] [facility] INFUSION 4 [facility] THERAPY/P INC INC ROPHYLAXI S /DX 1ST TO 1 HR URNLS DIP 94243 [facility] 4 [facility] STICK/TAB INC INC LET REAGENT AUTO MICROSCOP Y NATRIURET 72441 [facility] LOPE[facility] IC 4 [facility] [place] [address] JESSICA LOPEZ TROPONIN 4 [facility] QUANTITAT INC INC MARINE BLOOD 38425 [facility] COUNT 4 [facility] COMPLETE INC INC AUTO&AUTO DIFRNTL WBC GLUC BLD 98970 J[facility]ICA LOPEZ GLUC MNTR 4 [facility] DEV INC INC CLEARED FDA SPEC HOME USE ECG 03195 [facility] ROUTINE 4 [facility] ECG INC INC W/LEAST 12 LDS TRCG ONLY W/O I&R RADIOLOGI 95373 [facility] L[facility] C 4 [facility] EXAMINATI INC INC ON CHEST [place] [facility] G0378 JESSICA LOPEZ OBSERVATI 4 [facility] ON INC INC SERVICE PER HOUR COMPREHEN 98603 [facility] SIVE 4 [facility] METABOLIC INC INC [facility] G0378 J[facility] LOPE[facility] OBSERVATI 4 [facility] ON INC INC SERVICE PER HOUR COLLECTIO 53809 J[facility]ICA [facility]OPEZ N VENOUS 4 [facility] BLOOD INC INC VENIPUNCT URE BASIC 59445 J[facility]ICA LOPEZ METABOLIC 4 [facility] PANEL INC INC CALCIUM TOTAL THERAPEUT 01564 [facility] ACTVITY 4 [facility] DIRECT PT INC INC CONTACT EACH 15 MIN PHYSICAL 01895 [facility] L[facility] THERAPY 4 [facility] EVALUATIO INC INC N BLOOD 64514 [facility]ICA LOPZE COUNT 4 [facility] COMPLETE INC INC AUTO&AUTO DIFRNTL WBC NONINVASI 85311 [facility] L[facility] VE 4 [facility] EAR/PULSE INC INC OXIMETRY SINGLE DETER PRESSURIZ 20929 J[facility]ICA LOPEZ ED/NONPRE 4 [facility] SSURIZED INC INC INHALATIO N TREATMENT NONINVASI 67890 [facility] L[facility] VE 4 [facility] EAR/PULSE INC INC OXIMETRY SINGLE DETER PRESSURIZ 45125 J[facility]ICA L[facility]Z ED/NONPRE 4 [facility] SSURIZED [place] [address] JESSICA L[facility]Z INFUSION 4 [facility] THERAPY/P INC INC ROPHYLAXI S /DX 1ST TO 1 HR THERAPEUT 12926 [facility] LOPEZ IC 4 [facility] INJECTION INC [place] [address] JESSICA LOPEZ DISTAL 4 [facility] FIBULAR INC INC FRACTURE LAT MALLEOLUS URNLS DIP 11183 [facility]Z 4 [facility] STICK/TAB INC INC LET REAGENT AUTO MICROSCOP Y GLUC BLD 88293 JESSICA LOPEZ GLUC MNTR 4 [facility] DEV INC INC CLEARED FDA SPEC HOME USE RADIOLOGI 39165 [facility] L[facility] C 4 [facility] EXAMINATI INC INC ON ANKLE 2 VIEWS SUSCEPTIB 91939 J[facility] L[facility] LTY STDY 4 [facility] ANTIMICRB INC INC IAL MICRO/AGA R DILUTJ ANCHOR/SC C1713 J[facility]ICA BEVERLYON REW 4 [facility] OPPOSING INC INC BN-TO-BN/ SOFT TISSUE-TO -BN TX PROC G0238 JESSICA BEVERLYON IMPRV 4 [facility] RESP INC INC FUNCT NOT G0237 FCE-FCE 15MIN FLUOROSCO 00442 JESSICA LOPEZ PY SPX UP 4 [facility] TO 1 INC INC HOUR PHYS/QHP TIME HOSPITAL G0378 [facility] OBSERVATI 4 [facility] ON INC INC SERVICE PER HOUR GUIDE C1769 [facility] WIRE 4 [facility] INC INC CULTURE 46282 J[facility] L[facility] BACTERIAL 4 [facility] INC INC QUANTTATI VE COLONY COUNT URINE CULTURE 70318 [facility] BCT 4 [facility] ISOL&PRSM INC INC PTV ID ISOLATE EA URINE RADEX 95853 [facility] L[facility] ANKLE 4 [facility] COMPLETE INC INC MINIMUM 3 VIEWS ECG 20262 [facility] L[facility] ROUTINE 4 [facility] ECG INC INC W/LEAST 12 LDS TRCG ONLY W/O I&R RADIOLOGI 12054 [facility] L[facility] C EXAM 4 [facility] CHEST 2 INC INC VIEWS FRONTAL&L ATERAL RADEX 48965 [facility] ANKLE 4 [facility] COMPLETE INC INC MINIMUM 3 VIEWS Encounters Encounter Start End Date Code Location Performer Type Date OFFICE 65336 [facility] 5 5 [facility] 25 MINUTES OFFICE 53478 [facility] OUTPATIEN 5 5 PATERSON JYOTI T VISIT INTERNAL 15 MED MINUTES OFFICE 87507 [facility] SMITH OUTPATIEN 5 5 PHYSICIAN RAMONE T VISIT S GROUP 15 MINUTES HOSPITAL [facility] - 5 5 [facility] OUTPATIEN INC T OFFICE 62104 [facility] PETTEY OUTPATIEN 5 5 PHYSICIAN JAM T VISIT S GROUP 25 MINUTES HOSPITAL [facility] - 5 5 [facility] OUTPATIEN INC OFFICE 42146 [facility] SMITH OUTPATIEN 5 5 PHYSICIAN RAMONE T NEW 45 S GROUP MINUTES OFFICE 45335 [facility] BESSON OUTPATIEN 5 5 [facility] T VISIT INTERNAL 15 MED MINUTES HOSPITAL MARYANNWLAKISHA - 5 5 [facility] - 5 5 [facility] OUTPATIEN [facility] OFFICE 08644 [facility]ON OUTPATIEN 5 5 [facility] T VISIT INTERNAL 25 MED MINUTES HOSPITAL JESSICA - 5 5 [facility] OUTPATIEN [facility] OFFICE 74129 JESSICA HOWARD OUTPATIEN 5 5 [facility] JESSICA [facility] 5 5 [facility] EMERGENCY [id number] JESSICA 5 [address] [facility] T VISIT MODERATE [facility]VERITY [facility] JESSICA - 5 5 [facility] JESSICA [facility] 4 4 [facility] JESSICA - 4 4 [facility] JESSICA [facility] 4 4 [facility] [place] [id number] 4 [facility] EMERGENCY [id number] JESSICA [address] [facility] T VISIT HIGH/URGE NT SEVERITY [facility]OSPITAL JESSICA - 4 4 [facility] JESSICA - 4 4 [facility] JESSICA [facility] 4 4 [facility]
--- OUTSIDE RECORDS SUMMARY | 2017-02-03 22:17 | External Medical Summary Rpt | CCD ---
Author Author , DWIGHT QUINTANILLA Address Unknown Phone [email or web address] Providers Care Production Control Expert Name Role Phone BOSTONJAMEELPAT HANNY, SIMONE Unavailable Unavailable HANNY KAM JYOTI, BESSON Unavailable Unavailable JYOTI SUSANNAH VAMSI, Unavailable Unavailable SUSANNAH VAMSI [facility] Unavailable Unavailable [facility], [facility] Unavailable Unavailable [facility], [facility] ELIUD DOMENIC, Unavailable Unavailable ELIUD DOMENIC [facility] Unavailable Unavailable [facility], [facility] [place] [facility] Unavailable Unavailable [facility], [facility] FRYMAN EUG, FRYMAN Unavailable Unavailable EUG HAGENSCHREYES CHLOE, Unavailable Unavailable HAGENSCHNEIDER CHLOE [facility] Unavailable Unavailable INC, [facility] Unavailable Unavailable HOSPITAL P, [facility] P [facility], Unavailable Unavailable [facility], [facility] Un[facility] Un[facility], [facility] SMITH RAMONE, SMITH Unavailable Unavailable RAMONE RUFINO STYLES DWI, RUFINO Unavailable Unavailable JR DWI [facility] Unavailable Unavailable INTERNAL MED, [facility], Unavailable [facility]available [facility], Unavailable Unavailable [facility] Unavailable Unavailable [facility] Unavailable Unavailable MEDICAL, [facility] PETTEY JAM, PETTEY Unavailable Unavailable JAM [facility] Unavailable Unavailable SERVICES, [facility], Unavailable Unavailable [facility] Purpose Continuity of Care Document - 02-04-2014 through 2016 Problems Code Diagnosis DOS Provider Status J449 CHRONIC 02-24-2015 KAYA, OBSTRUCTIVE INC PULMONARY DISEASE UNS E119 TYPE 2 02-15-2015 DIABETIC DIABETES EXPERTS OF [facility] WITHOUT COMPLICATIO NS [id number] DERMATOCHAL 01-31-2015 [place] [facility] E[facility] UNS INSTITUTE EYELID Z961 PRESENCE OF 01-31-2015 [facility] LENS J0100 ACUTE 01-28-2015 [place] SINUSITIS INTERNAL UNSPECIFIED MED M722 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 [place] FIBROMATOSI INTERNAL S MED I10 ESSENTIAL 01-20-2015 [facility] [facility] HYPERTENSIO AGENCY ON N 4280 CONGESTIVE 12-29-2014 [place] [facility] FAILURE AGENCY ON UNSPECIFIED 428 HEART 12-28-2014 [place] FAILURE TRACE AREA AGENCY ON 496 CHRONIC 12-25-2014 [facility], AIRWAY INC OBSTRUCTION NEC 57258 ACUTE 12-16-2014 [facility], PHYSICIANS WITHOUT GROUP MENTION OF OBSTRUCTIO 63689 UNSPEC 11-30-2014 [facility]ERS [facility] BURSAE&TEND INC ONS SHOULDER REGION 7262 OTHER 11-30-2014 [facility] AFFECTIONS [facility] OF SHOULDER INC REGION NEC V571 OTHER 11-30-2014 [facility] PHYSICAL [facility] THERAPY INC 7273 OTHER 11-26-2014 [facility] BURSITIS PHYSICIANS DISORDERS GROUP 44959 PAIN IN 11-18-2014 [place] [facility]INT, MEDICAL SHOULDER IMAGING ASS REGION 51617 DIAB W/O 11-17-2014 DIABETIC COMP TYPE EXPERTS OF II/UNS NOT [place] STATED UNCNTRL 19447 HYPERTENSIV 11-14-2014 [facility] HEART [facility] DISEASE [facility] P UNSPEC W/HEART FAIL 99965 OBST 11-14-2014 [facility] BRONCHITIS [facility] P W/ACUTE BRONCHITIS 5939 UNSPECIFIED 11-14-2014 [facility] KIDNEY [facility] P AND URETER 59613 CHEST PAIN 11-14-2014 [place] UNSPECIFIED [facility]ICAL IMAGING ASS 250 DIABETES 11-04-2014 [place] MELLITUS TRACE AREA AGENCY ON 4760 CHRONIC 10-30-2014 [facility]ANS GROUP 4784 POLYP OF 10-30-2014 [facility] VOCAL CORD PHYSICIANS OR LARYNX GROUP 7099 UNSPECIFIED 10-30-2014 [facility] DISORDER PHYSICIANS OF GROUP SKIN&SUBCUT ANEOUS TISSUE 3572 POLYNEUROPA 09-28-2014 [place] IN [place] DIABETES INTERNAL MED 57985 ASTHMA, 09-28-2014 [place] UNSPECIFIED VALLEY , INTERNAL UNSPECIFIED MED STATUS V7612 OTHER 07-20-2014 [facility]AL MAMMOGRAM MEDICAL 7862 COUGH 07-09-2014 [facility] 3384 CHRONIC 07-07-2014 [place] PAIN VALLEY SYNDROME INTERNAL MED 27660 DYSPHONIA 07-07-2014 [place] [facility] INTERNAL MED 7906 OTHER 07-07-2014 [facility] ABNORMAL [facility] BLOOD INC CHEMISTRY 08600 GOUTY 06-03-2014 [facility] ARTHROPATHY [facility] INC UNSPECIFIED 4019 UNSPECIFIED 06-03-2014 [facility] ESSENTIAL [facility] HYPERTENSIO INC N 03297 PAIN IN 06-03-2014 [place] [facility], MEDICAL FOREARM IMAGING ASS V1582 PERS HX 06-03-2014 [facility] TOBACCO USE [facility] PRESENTING INC [facility] 04041 SOLITARY 05-05-2014 [facility] PULMONARY [facility] NODULE INC V5878 AFTERCARE 04-01-2014 [facility] FOLLOW [facility] SURGERY INC MUSCULOSKEL SYSTEM NEC V5416 AFTERCARE 03-10-2014 [facility] HEALING [facility] TRAUMATIC INC FRACTURE LOWER LEG 2724 OTHER AND 03-02-2014 [facility] HYPERLIPIDE POLLY 3569 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 [facility] OPATHI PERIPHERAL NEUROPATHY 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 [facility] 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 69198 ESOPHAGEAL 03-02-2014 [facility] 77206 DEHYDRATION 02-19-2014 [facility] INC 4589 UNSPECIFIED 02-19-2014 [facility] HYPOTENSION INC 7802 SYNCOPE AND 02-19-2014 [facility] COLLAPSE [facility] INC 18926 SHORTNESS 02-19-2014 [facility] OF BREATH [facility] INC V1090 PERSONAL 02-19-2014 [facility] HISTORY [facility] UNSPECIFIED INC MALIGNANT NEOPLASM V1254 PERSONAL HX 02-19-2014 [facility] TIA & CI [facility] W/O INC RESIDUAL DEFICITS 64959 MORBID 02-16-2014 [facility] OBESITY [facility] INC 5990 URINARY 02-16-2014 [facility] TRACT [facility] INFECTION INC SITE NOT SPECIFIED 01083 MALUNION OF 02-16-2014 [facility] FRACTURE [facility] [...] PORT 5 INC INC 85%/>02 CONC AT [facility] FLW RATE PRTBLE E0431 KAYA KIRKPATRICK, GASEOUS [...] UM BROM TO 0.5 MG PRTBLE E0431 [facility], GASEOUS 5 INC INC O2 SYS RENT; FLWMTR HUMIDFR&M ASK O2 CONC 1 E1390 [facility], DEL PORT 5 INC INC 85%/>02 CONC AT [facility] FLW RATE PHRM Q0513 [facility] DISPENSIN 5 PHARMACY PHARMACY G FEE SERVICES SERVICES INHALATIO N RX; PER 30 DAYS ALBUTEROL J7620 RELIANT RELIANT TO 2.5 5 PHARMACY PHARMACY MG & SERVICES SERVICES IPRATROPI UM BROM TO 0.5 MG MISC TX T1999 [facility] ITEMS & 5 TRACE TRACE SPL AREA AREA RETAIL AGENCY ON AGENCY ON PURCHASE NOC HOME CARE S5108 [facility] TRAINING 5 TRACE TRACE HOME AREA AREA CARE AGENCY ON AGENCY ON CLIENT PER 15 MIN PRTBLE E0431 [facility], GASEOUS 5 INC INC O2 SYS RENT; FLWMTR HUMIDFR&M ASK O2 CONC 1 E1390 [facility], DEL PORT 5 INC INC 85%/>02 CONC AT PRSC FLW RATE HOME CARE S5108 [facility] TRAINING 5 TRACE TRACE HOME AREA AREA CARE AGENCY ON AGENCY ON CLIENT PER 15 MIN MISC [place] T1999 [facility] ITEMS & 5 TRACE TRACE SPL AREA AREA RETAIL AGENCY ON AGENCY ON PURCHASE NOC PHYSICAL 97404 [facility] L[facility] THERAPY 5 [facility] EVALUATIO INC INC N THERAPEUT 59823 JESSICA LOPEZ IC PX 1/> 5 MEM [facility] AREAS INC INC EACH 15 MIN EXERCISES HOME CARE S5108 [facility] TRAINING 5 TRACE TRACE HOME AREA AREA CARE AGENCY ON AGENCY ON CLIENT PER 15 MIN O2 CONC 1 E1390 [facility], [facility], DEL PORT 5 INC INC 85%/>02 CONC AT [facility] FLW RATE PRTBLE E0431 [facility], [facility], GASEOUS 5 INC INC O2 SYS RENT; FLWMTR HUMIDFR&M ASK PHRM Q0513 REL[facility] RELIANT DISPENSIN 5 PHARMACY PHARMACY G FEE SERVICES SERVICES INHALATIO N RX; PER 30 DAYS ALBUTEROL J7620 RELIANT RELIANT TO 2.5 5 PHARMACY PHARMACY MG & SERVICES SERVICES IPRATROPI UM BROM TO 0.5 MG RADEX 25078 [facility] L[facility] SHOULDER 5 [facility] COMPLETE INC INC MINIMUM 2 V[facility]WS [facility] ITEMS & 5 TRACE TRACE SPL [...] [place] GLU MON-50 HOME CARE S5108 [facility] TRAINING 5 TRACE TRACE HOME AREA AREA CARE AGENCY ON AGENCY ON CLIENT PER 15 MIN ECG 02524 J[facility]ICA JOY JR ROUTINE 5 [facility] W/LEAST P 12 LDS I&R ONLY RADIOLOGI 80883 KENDRA NICHOLS C EXAM 5 MEDICAL HANNY [...] N RX; PER 30 DAYS PRTBLE E0431 [facility], GASEOUS 5 INC INC O2 SYS RENT; FLWMTR HUMIDFR&M ASK O2 CONC 1 E1390 [facility], DEL PORT 5 INC INC 85%/>02 CONC AT PRSC FLW RATE HOME CARE S5108 [facility] 5 TRACE TRACE HOME AREA AREA CARE AGENCY ON AGENCY ON CLIENT PER 15 MIN MISC TX T1999 [facility] ITEMS & 5 TRACE TRACE SPL AREA AREA RETAIL AGENCY ON AGENCY ON PURCHASE NOC HOME CARE S5108 [facility] 5 TRACE TRACE HOME AREA AREA CARE AGENCY ON AGENCY ON CLIENT PER 15 MIN O2 CONC 1 E1390 [facility], DEL PORT 5 INC INC 85%/>02 CONC AT PRSC FLW RATE PRTBLE E0431 [facility], GASEOUS 5 INC INC O2 SYS RENT; [...] CLIENT PER 15 MIN MISC TX T1999 [facility] ITEMS & 5 TRACE TRACE SPL AREA AREA RETAIL AGENCY ON AGENCY ON PURCHASE NOC MISC TX T1999 [facility] ITEMS & 5 TRACE TRACE SPL AREA AREA RETAIL AGENCY ON AGENCY ON PURCHASE NOC HOME CARE S5108 [facility] TRAINING 5 TRACE TRACE HOME AREA AREA CARE AGENCY ON AGENCY ON CLIENT PER 15 MIN ALBUTEROL J7620 RELIANT RELIANT TO 2.5 5 PHARMACY PHARMACY MG & SERVICES SERVICES IPRATROPI UM BROM TO 0.5 MG PHRM Q0513 RELIANT RELIANT DISPENSIN 5 PHARMACY PHARMACY G FEE SERVICES SERVICES INHALATIO N RX; PER 30 DAYS PRTBLE E0431 [facility], [facility] GASEOUS 5 INC INC O2 SYS RENT; FLWMTR HUMIDFR&M ASK O2 CONC 1 E1390 [facility], [facility], DEL PORT 5 INC INC 85%/>02 CONC AT PRS FLW RATE HOME CARE S5108 [facility] TRAINING 5 TRACE TRACE HOME AREA AREA CARE AGENCY ON AGENCY ON CLIENT PER 15 MIN HOME CARE S5108 [facility] TRAINING 5 TRACE TRACE HOME AREA AREA CARE AGENCY ON AGENCY ON CLIENT PER 15 MIN COMPUTER- 53747 [facility] AIDED 5 DETECTION RADIOLOGY RADIOLOGY ASSOCIAT ASSOCIAT SCREENING MAMMOGRAP HY SCREENING G0202 [facility] EIDER CHLOE MAMMOGRAP RADIOLOGY HY NIESHA ASSOCIAT INCL CAD WHEN PERFORMD HOME CARE S5108 [facility] TRAINING 5 TRACE TRACE HOME AREA AREA CARE AGENCY ON AGENCY ON CLIENT PER 15 MIN RADIOLOGI 19619 [place] ELIUD C EXAM 5 MEDICAL DOMENIC CHEST 2 IMAGING VIEWS ASS FRONTAL&L ATERAL CYANOCOBA 62460 [facility] MATT 5 [facility] VITAMIN INC INC B-12 BLOOD 42077 [facility] COUNT 5 [facility] COMPLETE INC INC AUTO&AUTO DIFRNTL WBC HEMOGLOBI 82392 [facility] L[facility] N 5 [facility] GLYCOSYLA INC INC JULIANNE A1C LIPID 23870 [facility] PANEL 5 [facility] INC INC COMPREHEN 79109 [facility] SIVE 5 [facility] METABOLIC INC INC PANEL COLLECTIO 97205 [facility] LOPEZ N VENOUS 5 [facility] BLOOD INC INC VENIPUNCT URE MISC TX T1999 [facility] ITEMS & 5 TRACE TRACE SPL AREA AREA RETAIL AGENCY ON AGENCY ON PURCHASE NOC MISC TX T1999 [facility] ITEMS & 5 TRACE TRACE SPL AREA AREA RETAIL AGENCY ON AGENCY ON PURCHASE NOC HOME CARE S5108 [facility] TRAINING 5 TRACE TRACE HOME AREA AREA CARE AGENCY ON AGENCY ON CLIENT PER 15 MIN HOME CARE S5108 [facility] TRAINING 5 TRACE TRACE HOME AREA AREA CARE AGENCY ON AGENCY ON CLIENT PER 15 MIN RADIOLOGI 53262 KENDRA DELUCACHER C EXAM 5 MEDICAL DOMENIC CHEST 2 IMAGING VIEWS ASS FRONTAL&L ATERAL RADEX 76789 KENDRA ELIUD WRIST 5 MEDICAL DOMENIC COMPLETE IMAGING MINIMUM 3 ASS VIEWS APPLICATI 68749 [facility] L[facility]Z ON SHORT 5 [facility] ARM INC INC SPLINT FOREARM-H AND STATIC CT THORAX 05322 [facility] L[facility] W/O 5 [facility] CONTRAST INC INC MATERIAL RADEX 76480 [facility] L[facility] ANKLE 4 [facility] COMPLETE INC INC MINIMUM 3 VIEWS RADEX 33713 J[facility] L[facility] ANKLE 4 [facility] COMPLETE INC INC MINIMUM 3 VIEWS RADEX 70835 [facility] ANKLE 4 [facility] COMPLETE INC INC MINIMUM 3 VIEWS BLOOD [address] HEMATOCRI T BLOOD [address] PLATELET AUTOMATED CATH PLMT [address] [facility] & [address] [place] [address] ARTS W/NJX & ANGIO IMG S&I CATHETER C[address] NAL ANGIOPLAS TY NON-LASER BASIC [address] PANEL CALCIUM IONIZED CATHETER C[address] BASIC 74088 [facility] METABOLIC 4 [facility] PANEL INC INC CALCIUM TOTAL COLLECTIO 38556 [facility] L[facility] N VENOUS 4 [facility] BLOOD INC INC VENIPUNCT [facility] G0378 J[facility]ICA L[facility] OBSERVATI 4 [facility] ON INC INC SERVICE PER HOUR BLOOD 37578 [facility] COUNT 4 [facility] COMPLETE INC INC AUTO&AUTO DIFRNTL WBC GLUC BLD 47019 [facility]Z GLUC MNTR 4 [facility] DEV INC INC CLEARED FDA SPEC HOME USE NONINVASI 70146 [facility] L[facility] VE 4 [facility] EAR/PULSE INC INC OXIMETRY SINGLE DETER PRESSURIZ 24569 [facility] LOPEZ ED/NONPRE 4 [facility] SSURIZED INC INC INHALATIO N TREATMENT PRESSURIZ 38890 [facility] LOPEZ ED/NONPRE 4 [facility] SSURIZED [place] [address] J[facility] LOPEZ LIPASE 4 [facility] INC INC NONINVASI 40565 [facility] L[facility] VE 4 [facility] EAR/PULSE [place] [address] J[facility] L[facility]Z INFUSION 4 [facility] THERAPY/P INC INC ROPHYLAXI S /DX 1ST TO 1 HR URNLS DIP 60660 [facility] 4 [facility] STICK/TAB INC INC LET REAGENT AUTO MICROSCOP Y NATRIURET 11446 [facility] LOPEZ IC 4 [facility] [place] [address] JESSICA LOPEZ TROPONIN 4 [facility] QUANTITAT INC INC MARINE BLOOD 42691 [facility] LOPEZ COUNT 4 [facility] COMPLETE INC INC AUTO&AUTO DIFRNTL WBC GLUC BLD 50930 [facility] LOPEZ GLUC MNTR 4 [facility] DEV INC INC CLEARED FDA SPEC HOME USE ECG 62075 J[facility] L[facility] ROUTINE 4 [facility] ECG INC INC W/LEAST 12 LDS TRCG ONLY W/O I&R RADIOLOGI 32261 [facility] L[facility] C 4 [facility] EXAMINATI INC INC ON CHEST [facility] G0378 JESSICA LOPEZ OBSERVATI 4 [facility] ON INC INC SERVICE PER HOUR COMPREHEN 84609 J[facility]ICA L[facility]Z SIVE 4 [facility] METABOLIC INC INC [facility] G0378 JESSICA LOPEZ OBSERVATI 4 [facility] ON INC INC SERVICE PER HOUR COLLECTIO 64122 JESSICA LOPEZ N VENOUS 4 [facility] BLOOD INC INC VENIPUNCT URE BASIC 61868 J[facility]ICA LOPEZ METABOLIC 4 [facility] PANEL INC INC CALCIUM TOTAL THERAPEUT 74310 [facility]ICA L[facility] ACTVITY 4 [facility] DIRECT PT INC INC CONTACT EACH 15 MIN PHYSICAL 55085 [facility] L[facility] THERAPY 4 [facility] EVALUATIO INC INC N BLOOD 38840 [facility] L[facility] COUNT 4 [facility] COMPLETE INC INC AUTO&AUTO DIFRNTL WBC NONINVASI 70489 [facility] L[facility] VE 4 [facility] EAR/PULSE INC INC OXIMETRY SINGLE DETER PRESSURIZ 79621 JESSICA LOPEZ ED/NONPRE 4 [facility] SSURIZED INC INC INHALATIO N TREATMENT NONINVASI 03332 [facility] L[facility] VE 4 [facility] EAR/PULSE INC INC OXIMETRY SINGLE DETER PRESSURIZ 72758 [facility] L[facility] ED/NONPRE 4 [facility] SSURIZED [place] [address] J[facility] LOPEZ INFUSION 4 [facility] THERAPY/P INC INC ROPHYLAXI S /DX 1ST TO 1 HR THERAPEUT 30081 [facility] L[facility] IC 4 [facility] INJECTION INC [place] [address] JESSICA LOPEZ DISTAL 4 [facility] FIBULAR INC INC FRACTURE LAT MALLEOLUS URNLS DIP 17656 J[facility]ICA LOPEZ 4 [facility] STICK/TAB INC INC LET REAGENT AUTO MICROSCOP Y GLUC BLD 60287 JESSICA LOPEZ GLUC MNTR 4 [facility] DEV INC INC CLEARED FDA SPEC HOME USE RADIOLOGI 91050 [facility] L[facility] C 4 [facility] EXAMINATI INC INC ON ANKLE 2 VIEWS SUSCEPTIB 98521 J[facility]ICA LOPEZ LTY STDY 4 [facility] ANTIMICRB INC INC IAL MICRO/AGA R DILUTJ ANCHOR/SC C1713 JESSICA BEVERLYON REW 4 [facility] OPPOSING INC INC BN-TO-BN/ SOFT TISSUE-TO -BN TX PROC G0238 JESSICA BEVERLYON IMPRV 4 [facility] RESP INC INC FUNCT NOT G0237 FCE-FCE 15MIN FLUOROSCO 07396 JESSICA LOPEZ PY SPX UP 4 [facility] TO 1 INC INC HOUR PHYS/QHP TIME HOSPITAL G0378 [facility] OBSERVATI 4 [facility] ON INC INC SERVICE PER HOUR GUIDE C1769 [facility] WIRE 4 [facility] INC INC CULTURE 14345 J[facility] L[facility] BACTERIAL 4 [facility] INC INC QUANTTATI VE COLONY COUNT URINE CULTURE 62592 [facility] L[facility] BCT 4 [facility] ISOL&PRSM INC INC PTV ID ISOLATE EA URINE RADEX 75942 [facility] ANKLE 4 [facility] COMPLETE INC INC MINIMUM 3 VIEWS ECG 20166 [facility] ROUTINE 4 [facility] ECG INC INC W/LEAST 12 LDS TRCG ONLY W/O I&R RADIOLOGI 95687 J[facility] LOPEZ C EXAM 4 [facility] CHEST 2 INC INC VIEWS FRONTAL&L ATERAL RADEX 48538 [facility] ANKLE 4 [facility] COMPLETE INC INC MINIMUM 3 VIEWS Encounters Encounter Start End Date Code Location Performer Type Date OFFICE 64741 [facility] OUTPATIEN 5 5 [facility] 25 MINUTES OFFICE 97150 [place] [facility] OUTPATIEN 5 5 [place] JYOTI T VISIT INTERNAL 15 MED MINUTES OFFICE 98016 [facility] OUTPATIEN 5 5 PHYSICIAN RAMONE T VISIT S GROUP 15 MINUTES HOSPITAL JESSICA - 5 5 [facility] OUTPATIEN INC T OFFICE 85784 [facility] PETTEY OUTPATIEN 5 5 PHYSICIAN JAM T VISIT S GROUP 25 MINUTES HOSPITAL JESSICA - 5 5 [facility] OUTPATIEN INC OFFICE 18949 [facility] SM[facility] OUTPATIEN 5 5 PHYSICIAN RAMONE T NEW 45 S GROUP MINUTES OFFICE 66046 [place] [facility] OUTPATIEN 5 5 [facility] T VISIT INTERNAL 15 MED MINUTES HOSPITAL MARYANNWLAKISHA - 5 5 [facility] JESSICA - 5 5 [facility] OUTPATIEN [facility] OFFICE 53786 [place] [facility] OUTPATIEN 5 5 [facility] T VISIT INTERNAL 25 MED MINUTES HOSPITAL JESSICA - 5 5 [facility]IEN [facility] OFFICE 24401 JESSICA HOWARD OUTPATIEN [address] [facility] VISIT HOSPITAL [facility] JESS[facility] - 5 5 [facility]PATIEN [facility] EMERGENCY 53170 JESSICA 5 5 [facility] DEPARTMEN [facility] T VISIT MODERATE SEVERITY HOSPITAL JESSICA - 5 5 [facility] OUT[facility]EN [facility] H[facility]PITAL JESSICA - 4 4 [facility] OUTPATIEN [facility] JESSICA - 4 4 [facility] OUTPATIEN [facility] JESSICA [facility] 4 4 [facility] OUTPATIEN [facility] HOSPITAL [place] [address] 4 [facility] JESSICA [facility] 4 4 [facility] OUTPATIEN [facility] EMERGENCY 77647 JESSICA 4 4 [facility] DEPARTMEN [facility] T VISIT HIGH/URGE NT SEVERITY HOSPITAL JESSICA - 4 4 [facility] OUTPATIEN [facility] JESSICA - 4 4 [facility] OUTPATIEN [facility] JESSICA - 4 4 [facility]IEN [facility]
--- OUTSIDE RECORDS SUMMARY | 2017-02-03 22:18 | External Medical Summary Rpt | CCD ---
Demographics Preferred Language Algerian Marital Status Unknown Orthodox Affiliation Unknown Race Unknown Ethnic Group Unknown Author Author , DWIGHT Organization DWIGHT Address Unknown Phone Immunization Unable to retrieve immunization data due to connection failure with Immunization Registry. Please try again later.
--- OUTSIDE RECORDS SUMMARY | 2017-02-03 22:18 | External Medical Summary Rpt | CCD ---
Demographics Preferred Language Bahraini Marital Status Unknown Latter Day Affiliation Unknown Race Unknown Ethnic Group Unknown Author Author , DWIGHT Organization DWIGHT Address Unknown Phone Immunization Unable to retrieve immunization data due to connection failure with Immunization Registry. Please try again later.
--- OUTSIDE RECORDS SUMMARY | 2017-02-03 22:20 | External Medical Summary Rpt ---
Author Author [employer], [employer] Organization [employer] Address Unknown Phone Unavailable Results Fibrin D-dimer FEU [Mass/volume] in Platelet poor plasma Observa Value Referen Units Interpr Notes Date tion ce etation Range IS PATIENT ON ANTICOAGULANTS? N PTT RESULTS MUST BE CALLED IF PT ON HEPARIN!!! Y Fibrin 0 - 400 ng/mL High Feb 03 D-dimer alert NOTIFICAT 2017 8:50 FEU ION PM [Mass/vol RESULT ume] in The Platelet D-Dimer poor values plasma are presented in units of mass(ng/m L) ofD-Dimer units(DDU ).This test has been FDA approved as an aid in the assessmen tand evaluatio n of suspected DIC, and thromboem bolic eventsinc luding PE and DVT. However, it does not have approvalf or cut-off values for the exclusion of these condition s. INR in Blood by Coagulation assay Observa Value Referen Units Interpr Notes Date tion ce etation Range IS PATIENT ON ANTICOAGULANTS? N PTT RESULTS MUST BE CALLED IF PT ON HEPARIN!!! Y INR in 0.9 - 1.1 No High INDICATIO Feb 03 Blood by informati N 2017 8:50 Coagulati on in PM on assay source INR data RANGETHER APY FOR DVT, PE, ATRIAL FIB; 2.0 - 3.0PROPHY LAXIS FOR VTETHERAP Y FOR MECHANICA L HEART 2.5 - 3.5VALVE; PREVENTIO N OF SYSTEMICE MBOLISM SECONDARY TO AMI Prothromb 9.4 - SECONDS High No Feb 03 in time 11.8 informati 2017 8:50 (PT) in on in PM Platelet source poor data plasma by Coagulati on assay Activated partial thrombplastin time (aPTT) in Platelet poor plasma by Coagulation assay Observa Value Referen Units Interpr Notes Date tion ce etation Range IS PATIENT ON ANTICOAGULANTS? N PTT RESULTS MUST BE CALLED IF PT ON HEPARIN!!! Y Activated 23.6 - SECONDS High RESULTS Feb 03 partial 34.0 CALLED TO 2017 8:50 thrombpla D. PM stin time MATTHIEU (aPTT) RJ in 02/03/17 Platelet 8 Rosibel Nelson plasma by hn Coagulati on assay Lactate [Moles/volume] in Blood Observa Value Referen Units Interpr Notes Date tion ce etation Range Lactate 0.4 - 2.0 mmol/L High An Feb 03 [Moles/vo elevated 2017 8:50 lume] in Lactic PM Blood Acid is suggestiv e of sepsis and shouldbe repeated within 6 hours of initial testing. CBC W Auto Differential panel in Blood Observa Value Referen Units Interpr Notes Date tion ce etation Range Basophils 0 - 0.2 K/MM3 Normal No Feb 03 informati 2016 8:50 [#/volume on in PM ] in source Blood by data Automated count Basophils 0.1 - 2.0 % Normal No Feb 03 informati 2016 8:50 leukocyte on in PM s in source Blood by data Automated count Eosinophi 0.0 - 0.4 K/mm3 Normal No Feb 03 ls informati 2016 8:50 [#/volume on in PM ] in source Blood by data Automated count Eosinophi 0.1 - % Normal No Feb 03 ls/100 12.0 informati 2016 8:50 leukocyte on in PM s in source Blood by data Automated count Granulocy 1.8 - 7.8 K/mm3 High No Feb 03 lauryn informati 2016 8:50 [#/volume on in PM ] in source Blood by data Automated count Granulocy 37.0 - % Normal No Feb 03 lauryn/ 80.0 informati 2016 8:50 leukocyte on in PM s in source Blood by data Automated count Hematocri 37.0 - % Normal No Feb 03 t [Volume 47.0 informati 2016 8:50 on in PM Fraction] source of Blood data Hemoglobi 12.2 - g/dL No 02/03/17 Feb 03 n 16.2 informati 3:HGB 2017 8:50 [Mass/vol on in previousl PM ume] in source y Blood data reported as: 12.7 # g/dL Lymphocyt 0.7 - 4.5 K/mm3 Normal No Feb 03 es informati 2016 8:50 [#/volume on in PM ] in source Unspecifi data ed specimen by Automated count Lymphocyt 10 - 50.0 % Normal No Feb 03 es informati 2016 8:50 [#/volume on in PM ] in source Unspecifi data ed specimen by Automated count Erythrocy 27 - 31.2 pg Low No Feb 03 te mean informati 2016 8:50 corpuscul on in PM ar source hemoglobi data n [Entitic mass] Erythrocy 31.8 - g/dl Low No Feb 03 te mean 35.4 informati 2016 8:50 corpuscul on in PM ar source hemoglobi data n concentra tion [Mass/vol ume] by Automated count Erythrocy 82.2 - fl Low No Feb 03 te mean 97.8 informati 2016 8:50 corpuscul on in PM ar volume source [Entitic data volume] by Automated count Monocytes 0.1 - 1.0 K/mm3 Normal No Feb 03 informati 2016 8:50 [#/volume on in PM ] in source Blood by data Automated count Monocytes 1.7 - 9.3 % Normal No Feb 03 / informati 2016 8:50 leukocyte on in PM s in source Blood by data Automated count Platelet 7.4 - fl Normal No Feb 03 mean 10.4 informati 2016 8:50 volume on in PM [Entitic source volume] data in Blood by Automated count Platelets 142 - 424 K/mm3 No No Feb 03 informati informati 2016 8:50 [#/volume on in on in PM ] in source source Blood data data Erythrocy 4.2 - 5.4 M/mm3 High No Feb 03 lauryn informati 2016 8:50 [#/volume on in PM ] in source Amniotic data fluid Erythrocy 11.5 - % High No Feb 03 te 17.5 informati 2016 8:50 distribut on in PM ion width source [Entitic data volume] by Automated count Leukocyte 4.8 - K/MM3 High No Feb 03 s 10.8 informati 2016 8:50 [#/volume on in PM ] in source Blood data Glucose [Mass/volume] in Capillary blood by Glucometer Observa Value Referen Units Interpr Notes Date tion ce etation Range Glucose 70 - 110 mg/dl High No Feb 01 [Mass/vol informati 2017 6:29 ume] in on in AM Capillary [...] U/L High No Jan 31 phosphata informati 2016 7:00 se on in AM [Enzymati source c data activity/ volume] in Serum or Plasma Bilirubin 0.2 - 1.0 mg/dL Normal No Jan 31 .total informati 2016 7:00 [Mass/vol on in AM ume] in source Serum or data Plasma Urea 7 - 18 mg/dL High No Jan 31 nitrogen informati 2017 7:00 [Mass/vol on in AM ume] in source Serum or data Plasma Calcium 8.5 - mg/dL Normal No Jan 31 [Mass/vol 10.1 informati 2017 7:00 ume] in on in AM Serum or source Plasma data Chloride 98 - 107 mmoL/L High No Jan 31 [Moles/vo informati 2017 7:00 lume] in on in AM Serum or source Plasma data Carbon 21.0 - mmoL/L Normal No Jan 31 dioxide, 32.0 informati 2017 7:00 total on in AM [Moles/vo source [...] ML/MIN No REFERENCE Jan 31 informati RANGE: 2016 7:00 glomerula on in >60 AM r [...] 3.5 - 5.1 mmoL/L Normal No Jan [id number] 7:00 [Moles/vo on in AM lume] in source Serum or data Plasma Sodium 136 - 145 mmoL/L Normal No Jan 31 [Moles/vo informati 2016 7:00 lume] in on in AM Serum or source Plasma data Aspartate 15 - 37 U/L High No Jan 31 inform2016 7:00 aminotran on in AM sferase source [...] - 0.2 K/MM3 Normal No Jan 31 inform2016 7:00 [#/volume on in AM ] in [...] - 424 K/mm3 Normal No Jan 31 inform2016 7:00 [#/volume on in AM ] in [...] High No Jan 30 [Mass/vol informati 2016 5:07 ume] in on in PM Capillary [...] - 2.0 % Normal No Jan 29 /100 informati 2016 9:20 leukocyte on in AM s in source Blood by data Automated count Eosinophi 0.0 - 0.4 K/mm3 Normal No Jan 29 ls informati 2016 9:20 [#/volume on in AM ] in source Blood by data Automated count Eosinophi 0.1 - % Normal No Jan 29 ls/100 12.0 informati 2016 9:20 leukocyte on in AM [...] 0.7 - 4.5 K/mm3 Normal No Jan 17 es informati 2016 9:20 [#/volume on in [...] 1.0 K/mm3 Normal No Jan 29 informati 2016 9:20 [#/volume on in AM ] in source Blood by data Automated count Monocytes 1.7 - 9.3 % Normal No Oct 17 /100 informati 2016 9:20 leukocyte on in AM s in source Blood by data Automated count Platelet 7.4 - fl Normal No Jan 29 mean 10.4 informati 2016 9:20 volume on in AM [Entitic source volume] data in Blood by Automated count Platelets 142 - 424 K/mm3 Normal No Jan 17 informati 2016 9:20 [#/volume on in AM ] in source Blood data Erythrocy 4.2 - 5.4 M/mm3 Normal No Jan 17 lauryn informati 2016 9:20 [#/volume on in AM ] in source Amniotic data fluid Erythrocy 11.5 - % High No Jan 29 te 17.5 informati 2016 9:20 distribut on in AM ion width source [Entitic data volume] by Automated count Leukocyte 4.8 - K/MM3 Normal No Jan 17 s 10.8 informati 2016 9:20 [#/volume on in AM ] in source Blood data Differential panel, method unspecified - Observa Value Referen Units Interpr Notes Date tion ce etation Range Neutrophi 0 - 8 % Normal No Jan 17 ls.band informati 2016 9:20 form/100 on in [...] 1.1 - 1.8 No Low No Jan 29 lobulin informati informati 2016 9:20 [Mass on in on in AM ratio] in source source Serum or data data Plasma Albumin 3.4 - 5.0 gm/dL Low No Jan 29 [Mass/vol informati 2016 9:20 ume] in on in AM Serum or source Plasma data Alkaline 46 - 116 U/L High No Jan 29 phosphata informati 2016 9:20 se on in AM [Enzymati source c data activity/ volume] in Serum or Plasma Bilirubin 0.2 - 1.0 mg/dL Normal No Jan 29 .total informati 2016 9:20 [Mass/vol on in AM ume] in source Serum or data Plasma Urea 7 - 18 mg/dL High No Jan 17 nitrogen informati 2017 9:20 [Mass/vol on in AM ume] in source Serum or data Plasma Calcium 8.5 - mg/dL Normal No Jan 29 [Mass/vol 10.1 informati 2017 9:20 ume] in on in [...] High No Jan 17 e 1.02 informati 2017 9:20 [Mass/vol on in AM ume] in source Serum or data Plasma Creatinin 50 - 200 ML/MIN No No Jan 29 e renal informati informati 2016 9:20 clearance on in on in AM source source predicted data data by Cockcroft -Gault formula Estimated 59- ML/MIN Low REFERENCE Jan 17 RANGE: 2017 9:20 glomerula >60 AM r ML/MIN/1. filtratio 73 SQUARE n rate METERSIf (GF this patient is -A merican, then multiply theresult by 1.210. Globulin 1.3 - 3.2 gm/dL High No Jan 29 [Mass/vol informati 2016 9:20 ume] in on in AM Serum source data Glucose 74 - 106 mg/dL Normal No Jan 29 [Mass/vol informati 2016 9:20 ume] in on in AM Serum or source Plasma data Potassium 3.5 - 5.1 mmoL/L Normal No Jan 29 informati 2016 9:20 [Moles/vo on in AM lume] in source Serum or data Plasma Sodium 136 - 145 mmoL/L Normal No Jan 29 [Moles/vo informati 2016 9:20 lume] in on in AM Serum or source Plasma data Aspartate 15 - 37 U/L No No Jan 29 informati informati 2017 9:20 aminotran on in on in AM sferase source source [Enzymati data data c activity/ volume] in Serum or Plasma Alanine 12 - 78 U/L No No Jan 17 aminotran informati informati 2017 9:20 sferase on in on in AM [...] No No Jan 29 lauryn informati informati 2017 4:44 [Mass/vol on in on in AM ume] in source source Urine by data data Screen method Benzodiaz 200 ng/mL ng/mL No No Jan 29 epines informati informati 2016 4:44 [Mass/vol on in [...] High This is Jan 29 [Mass/vol an 2016 4:44 ume] in UNCONFIRM AM Unspecifi ED ed result. specimen This result is for medicalpu rposes and/or treatment only. Phencycli <25 ng/mL No No Jan 29 dine informati informati 2016 4:44 [Mass/vol on in on in AM ume] in source source Unspecifi data data ed specimen 11-Hydr NEGATIV <50 ng/mL No No Jan 17 oxy E informa informa 2017 delta-9 tion in tion in 4:44 AM source source tetrahy data data drocann abinol [Presen ce] in Unspeci fied specime n Glucose [Mass/volume] in Capillary blood by Glucometer Observa Value Referen Units Interpr Notes Date tion ce etation Range Glucose 70 - 110 mg/dl Normal No Jan 16 [Mass/vol informati 2016 8:38 ume] in on [...] mg/dl Normal No Jan 16 [Mass/vol informati 2017 ume] in on in 11:30 AM Capillary source blood by data Glucomete r Gas panel in Arterial blood Observa Value Referen Units Interpr Notes Date ti ce etation Range Base -2.4-+2.3 MMOL/L High No Jan 16 excess in informati 2016 8:00 Arterial on in AM blood source data Arteria PATIENT No No No No Jan 16 l UNABLE informa informa informa informa 2017 patency tion in tion in tion in tion in 8:00 AM Wrist source source source source artery data data data data --pre arteria l punctur e Bicarbona 22.0 - MMOL/L High No Jan 16 te 26.0 informati 2016 8:00 [Moles/vo on in AM lume] in source Arterial data blood Carbon 35.0 - MMHG High Jan 28 dioxide 45.0 2016 8:00 [Partial CRITICAL AM pressure] RESULTS in Arterial RESU blood LTS CALLED TO: 01/28/17 0806 Sophia on,Gisella pH of 7.35 - MMOL/L Low No Jan 16 Arterial 7.45 informati 2016 8:00 blood on in AM source data Oxygen 80 - 100 MMHG Low No Jan 28 [Partial informati 2016 8:00 pressure] on in AM in source Arterial data blood Oxygen 90 - 100 % Normal No Jan 28 saturatio informati 2016 8:00 n.calcula on in AM eber from source oxygen data partial pressure in Arterial blood SOURCE RIGHT No No No No Jan 28 BRACHIA informa informa informa informa 2016 L tion in tion in tion in tion in 8:00 AM source source source source data data data data Carbon 23 - 27 MMOL/L High No Jan 28 dioxide, informati 2016 8:00 total on in AM [Moles/vo source lume] in data Arterial blood CBC W Auto Differential panel in Blood Observa Value Referen Units Interpr Notes Date tion ce etation Range 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: 0600 Basophils 0 - 0.2 K/MM3 Normal [...] K/mm3 High No Jan 28 lauryn informati 2016 6:17 [#/volume on in AM ] in source Blood by data Automated count Granulocy 37.0 - % High No Jan 28 lauryn/100 80.0 informati 2016 6:17 leukocyte on in AM s in source Blood by data Automated count Hematocri 37.0 - % Low No Jan 28 t [Volume 47.0 informati 2016 6:17 on in AM Fraction] source of Blood data Hemoglobi 12.2 - g/dL Low No Jan 28 n 16.2 informati 2016 6:17 [Mass/vol on in AM ume] in source Blood data Lymphocyt 0.7 - 4.5 K/mm3 Normal No Jan 28 es informati 2016 6:17 [#/volume on in AM ] in source Unspecifi data ed specimen by Automated count Lymphocyt 10 - 50.0 % Low No Jan 16 es informati 2017 6:17 [#/volume on in AM ] in source Unspecifi data ed specimen by Automated count Erythrocy 27 - 31.2 pg Low No Jan 16 te mean informati 2016 6:17 corpuscul on in AM ar source hemoglobi data n [Entitic mass] Erythrocy 31.8 - g/dl Low No Jan 16 te mean 35.4 informati 2017 6:17 corpuscul on in AM ar source hemoglobi data n concentra tion [Mass/vol ume] by Automated count Erythrocy 82.2 - fl Low No Jan 16 te mean 97.8 informati 2016 6:17 corpuscul on in AM ar volume source [Entitic data volume] by Automated count Monocytes 0.1 - 1.0 K/mm3 Normal No Jan 16 informati 2016 6:17 [#/volume on in AM ] in source Blood by data Automated count Monocytes 1.7 - 9.3 % Normal No Oct 16 /100 informati 2017 6:17 leukocyte on in AM s in source Blood by data Automated count Platelet 7.4 - fl Normal No Jan 16 mean 10.4 informati 2017 6:17 volume on in AM [Entitic source volume] data in Blood by Automated count Platelets 142 - 424 K/mm3 Normal No Jan 16 informati 2016 6:17 [#/volume on in AM ] in source Blood data Erythrocy 4.2 - 5.4 M/mm3 Low No Jan 16 lauryn informati 2017 6:17 [#/volume on in AM ] in source Amniotic data fluid Erythrocy 11.5 - % High No Jan 16 te 17.5 informati 2016 6:17 distribut on in AM ion width source [Entitic data volume] by Automated count Leukocyte 4.8 - K/MM3 High No Jan 16 s 10.8 informati 2016 6:17 [#/volume on in AM ] in source Blood data Comprehensive metabolic 2000 panel in Serum or Plasma Observa Value Referen Units Interpr Notes Date tion ce etation Range 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: 0600 Albumin/G 1.1 - 1.8 No Low No Jan 16 lobulin informati informati 2016 6:17 [Mass on in on in AM ratio] in source source Serum or data data Plasma Albumin 3.4 - 5.0 gm/dL Low No Oct 16 [Mass/vol informati 2017 6:17 ume] in on in AM Serum or source Plasma data Alkaline 46 - 116 U/L High No Oct 16 phosphata informati 2017 6:17 se on in AM [Enzymati source c data activity/ volume] in Serum or Plasma Bilirubin 0.2 - 1.0 mg/dL Normal No Oct 16 .total informati 2017 6:17 [Mass/vol on in AM ume] in source Serum or data Plasma Urea 7 - 18 mg/dL High No Oct 16 nitrogen informati 2017 6:17 [Mass/vol on in AM ume] in source Serum or data Plasma Calcium 8.5 - mg/dL Normal No Oct 16 [Mass/vol 10.1 informati 2017 6:17 ume] in on in AM Serum or source Plasma data Chloride 98 - 107 mmoL/L Normal No Oct 16 [Moles/vo informati 2017 6:17 lume] in on in AM Serum or source Plasma data Carbon 21.0 - mmoL/L Normal No Oct 16 dioxide, 32.0 informati 2017 6:17 total [...] 1.3 - 3.2 gm/dL High No Oct 16 [Mass/vol informati 2017 6:17 ume] in on in AM Serum source data Glucose 74 - 106 mg/dL Normal No Oct 16 [Mass/vol informati 2017 6:17 ume] in on in AM Serum or source Plasma data Potassium 3.5 - 5.1 mmoL/L High No Oct 16 informati 2017 6:17 [Moles/vo on in AM lume] in source Serum or data Plasma Sodium 136 - 145 mmoL/L Low No Oct 16 [Moles/vo informati 2017 6:17 lume] in on in AM Serum or source Plasma data Aspartate 15 - 37 U/L No No Jan 16 informati informati 2017 6:17 aminotran on in on in AM sferase source source [Enzymati data data c activity/ volume] in Serum or Plasma Alanine 12 - 78 U/L No No Jan 16 aminotran informati informati 2017 6:17 sferase on in on in AM [Enzymati source source c data data activity/ volume] in Serum or Plasma Protein 6.4 - 8.2 gm/dL Normal No Jan 16 [Mass/vol informati 2017 6:17 ume] in on in AM Serum or source Plasma data Glucose [Mass/volume] in Capillary blood by Glucometer Observa Value Referen Units Interpr Notes Date tion ce etation Range Glucose 70 - 110 mg/dl High No Jan 16 [Mass/vol informati 2017 3:39 ume] in on in AM Capillary source blood by data Glucomete r Glucose [Mass/volume] in Capillary blood by Glucometer Observa Value Referen Units Interpr Notes Date tion ce etation Range Glucose 70 - 110 mg/dl High No Jan 27 [Mass/vol informati 2017 8:32 ume] in on in PM Capillary source blood by data Glucomete r Glucose [Mass/volume] in Capillary blood by Glucometer Observa Value Referen Units Interpr Notes Date ti ce etation Range Glucose 70 - 110 mg/dl High No Jan 27 [Mass/vol informati 2017 4:51 ume] in on in PM Capillary [...] 70 - 110 mg/dl High No Jan 27 [Mass/vol informati 2017 6:38 ume] in on in AM Capillary source blood by data Glucomete r Basic metabolic panel in Blood Observa Value Referen Units Interpr Notes Date tion ce etation Range Urea 7 - 18 mg/dL High No Oct 15 nitrogen informati 2016 5:35 [Mass/vol on in AM ume] in source Serum or data Plasma Calcium 8.5 - mg/dL Normal No Jan 27 [Mass/vol 10.1 inform2016 5:35 ume] in on in AM Serum or source Plasma data Chloride 98 - 107 mmoL/L Normal No Jan 27 [Moles/vo informati 2016 5:35 lume] in on in AM Serum or source Plasma data Carbon 21.0 - mmoL/L High No Jan 27 dioxide, 32.0 informati 2016 5:35 total on in AM [Moles/vo source lume] in data Serum or Plasma Creatinin 0.55 - mg/dL High No Jan 27 e 1.02 informati 2016 5:35 [Mass/vol on in AM ume] in source Serum or data Plasma Creatinin 50 - 200 ML/MIN Normal No Jan 27 e renal informati 2016 5:35 clearance on in AM source predicted data by Cockcroft -Gault formula Estimated 59- ML/MIN Low REFERENCE Jan 27 RANGE: 2016 5:35 glomerula >60 AM r ML/MIN/1. filtratio 73 SQUARE n rate METERSIf (GF this patient is -A merican, then multiply theresult by 1.210. Glucose 74 - 106 mg/dL High No Jan 27 [Mass/vol informati 2016 5:35 ume] in on in AM Serum or source Plasma data Potassium 3.5 - 5.1 mmoL/L Normal No Jan 27 inform2016 5:35 [Moles/vo on in AM lume] in source Serum or data Plasma Sodium 136 - 145 mmoL/L Normal No Jan 27 [Moles/vo informati 2016 5:35 lume] in on [...] - 2.0 % Normal No Jan 27 /100 informati 2016 5:35 leukocyte on in [...] 1.8 - 7.8 K/mm3 Normal No Jan 15 lauryn informati 2016 5:35 [...] Erythrocy 82.2 - fl Low No Jan 27 te mean 97.8 informati 2016 5:35 corpuscul on in AM ar volume source [Entitic data volume] by Automated count Monocytes 0.1 - 1.0 K/mm3 Normal No Jan 15 informati 2016 5:35 [#/volume on in AM ] in source Blood by data Automated count Monocytes 1.7 - 9.3 % Normal No Jan 15 / informati 2016 5:35 leukocyte on in AM s in source Blood by data Automated count Platelet 7.4 - fl Normal No Jan 27 mean 10.4 informati 2016 5:35 volume on [...] Erythrocy 11.5 - % High No Jan 15 te 17.5 informati 2016 5:35 distribut on [...] High No Jan 26 [Mass/vol informati 2016 5:14 ume] in on in PM Capillary source blood by data Glucomete r Comprehensive metabolic 2000 panel in Serum or Plasma Observa Value Referen Units Interpr Notes Date tion ce etation Range Albumin/G 1.1 - 1.8 No Low No Jan 14 lobulin informati informati 2016 1:15 [Mass on in on in PM ratio] in source source Serum or data data Plasma Albumin 3.4 - 5.0 gm/dL Low No Jan 14 [Mass/vol informati 2016 1:15 ume] in on in PM Serum or source Plasma data Alkaline 46 - 116 U/L High No Jan 14 phosphata informati 2016 1:15 se on in PM [Enzymati source c data activity/ volume] in Serum or Plasma Bilirubin 0.2 - 1.0 mg/dL Normal No Jan 14 .total informati 2017 1:15 [Mass/vol on [...] mmoL/L Normal No Oct 14 [Moles/vo informati 2016 1:15 lume] in [...] gm/dL High No Oct 14 [Mass/vol informati 2016 1:15 ume] in on in PM Serum source data Glucose 74 - 106 mg/dL High No Jan 14 [Mass/vol informati 2016 1:15 ume] in on in PM Serum or source Plasma data Potassium 3.5 - 5.1 mmoL/L Normal No Oct 14 informati 2016 1:15 [Moles/vo on in PM lume] in source Serum or data Plasma Sodium 136 - 145 mmoL/L Normal No Oct 14 [Moles/vo informati 2017 1:15 lume] in on in PM Serum or source Plasma data Aspartate 15 - 37 U/L Low No Oct 14 informati 2016 1:15 aminotran on in PM sferase source [Enzymati data c activity/ volume] in Serum or Plasma Alanine 12 - 78 U/L Normal No Oct 14 aminotran informati 2016 1:15 sferase on in PM [Enzymati source c data activity/ volume] in Serum or Plasma Protein 6.4 - 8.2 gm/dL Normal No Jan 14 [Mass/vol informati 2017 1:15 ume] in [...] mg/dL Normal No Sep 15 .total informati 2016 [Mass/vol on in 10:20 PM [...] - 5.1 mmoL/L Normal No Sep 15 inform 2017 [Moles/vo on in 10:20 PM lume] in source Serum or data Plasma Sodium 136 - 145 mmoL/L Low No Sep 15 [Moles/vo informati 2016 lume] in on in 10:20 PM Serum or source Plasma data Aspartate 15 - 37 U/L Low No Sep 15 inform2016 aminotran on in 10:20 PM sferase source [Enzymati data c activity/ volume] in Serum or Plasma Alanine 12 - 78 U/L Normal No Sep 15 aminotran inform 2017 sferase on in 10:20 PM [Enzymati [...] 2.0 % Normal No Sep 15 /100 informati 2016 leukocyte on in 10:20 PM s in source Blood by data Automated count Eosinophi 0.0 - 0.4 K/mm3 Normal No Sep 15 ls ati 2017 [#/volume on in 10:20 PM ] in source Blood by data Automated count Eosinophi 0.1 - % Normal No Sep 15 ls/100 12.0 inform2016 leukocyte on in 10:20 PM s in source Blood by data Automated count Granulocy 1.8 - 7.8 K/mm3 Normal No Sep 15 lauryn inform 2017 [#/volume on in 10:20 PM ] in source Blood by data Automated count Granulocy 37.0 - % Normal No Sep 15 lauryn/100 80.0 informati 2017 leukocyte on in 10:20 PM s in source Blood by data Automated count Hematocri 37.0 - % Low No Sep 15 t [Volume 47.0 informati 2017 on in 10:20 PM Fraction] source of Blood data Hemoglobi 12.2 - g/dL Low No Sep 15 n 16.2 informati 2017 [Mass/vol on in 10:20 PM ume] in source Blood data Lymphocyt 0.7 - 4.5 K/mm3 Normal No Sep 15 es informati 2017 [#/volume on in 10:20 PM [...] - 1.0 K/mm3 Normal No Sep 15 2016 [#/volume on in 10:20 PM ] in source Blood by data Automated count Monocytes 1.7 - 9.3 % Normal No Sep 15 /100 informati 2017 leukocyte on in 10:20 PM s in source Blood by data Automated count Platelet 7.4 - fl Low No Sep 15 mean 10.4 informati 2017 volume on in 10:20 PM [Entitic source [...] Normal No Sep 15 te 17.5 informati 2017 distribut on in 10:20 PM ion width source [Entitic data volume] by Automated count Leukocyte 4.8 - K/MM3 Normal No Sep 15 s 10.8 informati 2016 [#/volume on in 10:20 PM ] in source Blood data Basic metabolic panel in Blood Observa Value Referen Units Interpr Notes Date tion ce etation Range Urea 7 - 18 mg/dL High No Sep 8 nitrogen informati 2017 7:06 [Mass/vol on in AM ume] in source Serum or data Plasma Calcium 8.5 - mg/dL Normal No Sep 8 [Mass/vol 10.1 informati 2017 7:06 ume] in on in [...] High No Sep 8 e 1.02 informati 2017 7:06 [Mass/vol on in AM [...] 5.1 mmoL/L Normal No Sep 8 informati 2017 7:06 [Moles/vo on in AM lume] in [...] K/mm3 Normal No Sep 8 es informati 2016 [...] Normal No Dec 04 [Mass/vol 10.1 informati 2017 1:25 ume] in on in PM Serum [...] Normal No Dec 04 e 1.02 informati 2017 1:25 [Mass/vol on in PM ume] in source Serum or data Plasma Estimated 59- ML/MIN Low REFERENCE Dec 04 RANGE: 2017 1:25 glomerula >60 PM r ML/MIN/1. filtratio [...] - 2.0 % Normal No Dec 04 inform2016 1:25 leukocyte on in PM s in source Blood by data Automated count Eosinophi 0.0 - 0.4 K/mm3 Normal No Dec 04 ls 2016 1:25 [#/volume on in PM ] [...] Low No Dec 04 t [Volume 47.0 ati 2016 1:25 on in PM Fraction] source [...] Low No Dec 04 te mean informati 2017 1:25 corpuscul on in PM [...] 7 - 18 mg/dL High No Sep 5 nitrogen informati 2016 [Mass/vol on in 11:34 AM ume] in source Serum or data Plasma Calcium 8.5 - mg/dL Normal No Sep 5 [Mass/vol 10.1 informati 2016 ume] in on in 11:34 AM Serum or source Plasma data Chloride 98 - 107 mmoL/L Low No Sep 5 [Moles/vo informati 2016 lume] in on in [...] data Plasma Estimated 59- ML/MIN Low REFERENCE Marlon 5 RANGE: 2017 glomerula >60 11:34 AM r ML/MIN/1. filtratio 73 SQUARE n rate METERSIf (GF this patient is -A merican, then multiply theresult by 1.210. Glucose 74 - 106 mg/dL Normal No Sep 5 [Mass/vol informati 2016 ume] in on in 11:34 AM Serum or source Plasma data Potassium 3.5 - 5.1 mmoL/L Normal No Sep 5 inform2016 [Moles/vo on in 11:34 AM lume] in source Serum or data Plasma Sodium 136 - 145 mmoL/L Low No Sep 5 [Moles/vo informati 2016 lume] in on in [...]
--- OUTSIDE RECORDS SUMMARY | 2017-02-03 22:20 | External Medical Summary Rpt ---
[...] Date tion ce etation Range COMMENTS TO [employer]AL HEALTH THERAPIST: 0600 Basophils 0 - 0.2 K/MM3 Normal [...] Date tion ce etation Range COMMENTS TO ORAL HEALTH THERAPIST: 0600 Albumin/G 1.1 - 1.8 No Low [...]
[2017-02-03 22:42] LABS: URINE BILIRUBIN - DIPSTICK NEGATIVE (NEG); URINE BLOOD TRACE-INTACT (NEG)
[2017-02-03 22:43] LABS: URINE SQUAMOUS CELLS 20-50 #/hpf (0-5)
[2017-02-03 23:05] LABS: ARTERIAL PO2 74.6 MMHG (80-100); ARTERIAL TCO2 21.7 MMOL/L (23-27)
[2017-02-03 23:06] LABS: ALLEN'S TEST Y; ARTERIAL ABE -5.9 MMOL/L (-2.4-+2.3); OXYGEN 100
[2017-02-04 01:00] LABS: ALLEN'S TEST Y; ARTERIAL TCO2 22.6 MMOL/L (23-27); OXYGEN 100
[2017-02-04 04:52] VITALS: BP 122/69
[2017-02-04 05:20] LABS: ARTERIAL ABE -7.3 MMOL/L (-2.4-+2.3); ARTERIAL PO2 109.3 MMHG (80-100); ARTERIAL TCO2 21.3 MMOL/L (23-27); OXYGEN 95
[2017-02-04 05:21] LABS: PRESSURE SUPPORT 10; VENT RATE 16
--- NOTE | 2017-02-04 17:55 | RADIOLOGY REPORT PS360 ---
CT CHEST W/O CONTRAST HISTORY: SOAdiabetic with aggressive shortness of breath. Atrial fibrillation. Elevated heart rate.. Subsequent intubated Patient Age: 66 years: Female Ordering Physician: Donald Venegas MD TECHNIQUE: Helical CT scanning performed through the chest with no oral or IV contrast utilized. COMPARISON :06/10/1959 FINDINGS Scanning began at the Base the neck. We see a 12 x 10 mm right thyroid nodule. Consider thyroid ultrasound follow-up. Mediastinum. Narrowed thoracic trachea with marked cavity at its posterior margin identified overlying the nondilated esophagus. 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 More pronounced diffuse infiltrate overall throughout the left lung. Moderately pronounced diffuse patchy infiltrate throughoutL LL & L UL.. Additional dense focal consolidation & air bronchograms LLL. RIGHT LUNG. Diffuse patchy infiltrate most evident posterior RLL. Small Bilateral pleural effusion. Left slightly larger than right. There is cardiomegaly and left atrial enlargement suspect findings related to CHF. The. No pericardial effusion uppermost abdomen. No discrete findings. Mild Distended gallbladder osseous. No prominent findings. IMPRESSION------- Bilateral infiltrates most extensive throughout the left lung . Likely reflect a combination of pulmonary edema/ CHF & pneumonia. . Less likely ARDS . Pronounced Narrowing of the thoracic trachea & central bronchi which is significant change since May 2015. Suspect bronchial spasm, with airway thickening & edematous changes. 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 Small bilateral pleural effusions. Vascular engorgement congestion. Additional Cardio megaly with LAD.. Likely Reflecting CHF component of the bilateral infiltrates.
--- NOTE | 2017-02-04 23:52 | RADIOLOGY REPORT PS360 ---
CHEST-PORTABLE HISTORY: SOA atrial fibrillation. Short of breath Patient Age: 66 years: Female Ordering Physician: Donald Venegas MD TECHNIQUE: AP upright portable chest 2:00 AM COMPARISON :Prior CXR 02/03/2017 FINDINGS ET tube now in place & satisfactory position . Tip is at the level of the head of the clavicles. There is improved expansion at the right lung base prior study.. However there is Increased density and infiltrate is seen at the left lung base now completely obscuring the left hemidiaphragm A diffuse mainly interstitial type infiltrate is seen throughout the left lung most evident towards the left lung base dimension to the left midlung and above. There also is fairly mild infiltrate at the right infrahilar region towards right lower lobe. Underlying COPD and postsurgical changes right chest. Mild cardiomegaly. IMPRESSION:----- 1. ET tube satisfactory position. Postsurgical changes right josé luis 2. Bilateral infiltrate most evident throughout left lung. Diffuse mainly interstitial infiltrate throughout the mid & lower lung hunt on left Additional area of dense consolidation has developed at the left lung base & now fully obscuring left hemidiaphragm Right lung with interstitial infiltrate most evident extending towards right lung base-. However this right lower lobe is better expanded and with clearing of infiltrate here since yesterday's study.
--- NOTE | 2017-02-05 13:19 | RADIOLOGY REPORT PS360 ---
CHEST-PORTABLE HISTORY: dyspneadyspnea short of breath Patient Age: 66 years: Female Ordering Physician: Donald Venegas MD TECHNIQUE: AP portable upright chest COMPARISON : 08/07/2016 CXR FINDINGS Bilateral mainly interstitial infiltrates superimposed upon chronic changes Primarily interstitial infiltrate most evident midline and towards bases bilateral. . Right chest: Postsurgical changes upper right chest from previous likely right upper lobectomy. Splayed posterior ribs associated Suggestion mainly interstitial infiltrate superimposed upon chronic changes is seen throughout the right midlung & right base. Left chest.: diffuse mainly interstitial infiltrate throughout the left lung most evident left midlung and left base Slight blunting left CP angle likely may reflect small left pleural effusion. Heart is enlarged. Mild vascular engorgement and question mild vascular congestion. Could be component of CHF contributing to this overall appearance. Upper lung hunt hyperexpanded bilateral.. IMPRESSION: ---- 1. Postsurgical changes right upper chest suspect right upper lobectomy 2. Bilateral infiltrate superimposed on chronic changes. Mainly interstitial infiltrate most evident at midlung and towards bases bilateral..57t CXR
== END 2017-02-04 05:25 | disposition short-term general hospital (02) ==
LOC: ER 20:36 → 2ND 21:50 → ER 02-04 05:25
PROVIDERS: Emergency Medicine; Internal Medicine Adolescent Medicine
DX: J39.8 Other specified diseases of upper respiratory tract (principal); J96.01 Acute respiratory failure with hypoxia; J18.1 Lobar pneumonia, unspecified organism; I50.23 Acute on chronic systolic (congestive) heart failure; I48.91 Unspecified atrial fibrillation; Z79.01 Long term (current) use of anticoagulants; E11.9 Type 2 diabetes mellitus without complications; Z79.84 Long term (current) use of oral hypoglycemic drugs; F41.8 Other specified anxiety disorders
CPT/HCPCS: J0330; J0456; J2704

== ENCOUNTER 2017-02-17 02:58 | Emergency (ER) | payer MEDICARE, MEDICAID ==
[~2017-02-17] VITALS: Ht 170.2 cm; Wt 99.8 kg
--- OUTSIDE RECORDS SUMMARY | 2017-02-17 03:50 | External Medical Summary Rpt | CCD ---
Author Author , DWIGHT QUINTANILLA Address Unknown Phone [email or web address] Care Team Providers Care Tool Marker Name Role Phone Leanne Shaikh MD, Unavailable Unavailable Leanne Blanca MD, Unavailable Unavailable Eduin Blanca MD Purpose Continuity of Care Document - 05-28-2012 through 2016 Problems Code Diagnosis DOS Provider Status 276.8 Hypokalemia [facility] 416.9 Cor [place] [facility] [id number] Gastritis [facility] [id number] Pulmonary [facility] [id number] Chronic [facility] Allergies, Adverse Reactions, Alerts Type Drug Allergy Adverse Reaction to Substance Substance Reaction Severity Sulfonamide Unknown Unknown Sulfonamide Related I-RASH Intermediate Medications Na ND Rx Da Fi Fi [...] RO 07 -0 SE 90 6- Lo TX 07 20 ng DE 32 13 er [...] 5 ti MG ve TA BL ET TX 11 05 1 No RA 52 -0 [...] Lo OO 20 ng D 13 er [place] Ac R ti ve IP 00 [...] TF 07 -0 OR 90 5- Lo TX 17 20 ng N 22 13 er HC 0 L Ac 50 ti 0 ve MG TA BL ET Po 00 05 2 No ta 24 -0 ss 50 5- Lo iu 05 20 ng m 80 13 er Ch 1 lo Ac ri ti de ve 20 ME Q Ta bl e [place] 51 05 2 No cr 07 -0 [...] 1 Ac TA ti BL ve ET IA 00 02 2 No OM 64 -1 ET 11 4- Lo HDEZ 49 20 ng ZI 53 13 er NE 5 Ac 25 ti ve MG /M L AM PU L FS 02 3 No -1 BL 4- Lo OO 20 ng D 13 er [place] Ac R ti ve HU 00 [...] RO 40 -1 SE 96 4- Lo TX 10 20 ng DE 20 13 er [...] TF 07 -1 OR 90 4- Lo TX 17 20 ng N 22 13 er [...] ti ve 32 5 MG -5 MG [place] 68 02 3 No CR 09 -1 AL 40 4- Lo FA 17 20 ng TE 16 13 er 1 2 Ac GM ti /1 ve 0 ML [place] SP LI 00 02 3 No PI 07 -1 TO 10 4- Lo R 15 20 ng 40 74 13 er 0 MG Ac ti TA ve BL ET Ga 00 02 3 No ba 17 -1 pe 24 4- Lo nt 44 20 ng in 31 13 er 0 60 Ac 0M ti G ve Ta bl et IA 00 02 3 No OT 00 -1 [...] Order Detail nces retati t Range on D dimer FEU PPP-mCnc (02-14-2017 12:55) D dimer 2.22 <0.51 complet FEU 017 mg/L ed PPP-mCn 12:55 FEU c UUN Ur-mCnc (02-13-2017 13:53) UUN 499 complet Ur-mCnc 017 mg/dL ed 13:53 Sodium Ur-sCnc (02-13-2017 13:53) Sodium < 20 complet Ur-sCnc 017 mmol/L ed 13:53 Creat Ur-mCnc (02-13-2017 13:53) Creat 65 complet Ur-mCnc 017 mg/dL ed 13:53 Vancomycin SerPl-mCnc (02-08-2017 05:26) Vancomy 17.8 0-40.0 complet diana 017 ug/mL ed SerPl-m 05:26 Cnc Magnesium SerPl-mCnc (02-08-2017 02:02) Magnesi 2.2 1.9-2.4 complet um 017 mg/dL ed SerPl-m 02:02 Cnc Potassium SerPl-sCnc (02-07-2017 03:13) Potassi 3.7 3.7-4.8 complet um 017 mmol/L ed SerPl-s 03:13 Cnc Phosphate SerPl-mCnc (02-07-2017 02:07) Phospha 02-07-2 2.9 2.5-4.5 complet te 017 mg/dL ed SerPl-m 02:07 Cnc Magnesium SerPl-mCnc (02-07-2017 02:07) Magnesi 1.7 1.9-2.4 complet um 017 mg/dL ed SerPl-m 02:07 Cnc Phosphate SerPl-mCnc (02-06-2017 02:03) Phospha 4.0 2.5-4.5 complet te 017 mg/dL ed SerPl-m 02:03 Cnc Ca-I SerPl ISE-sCnc (02-06-2017 02:03) Ca-I 4.4 4.6-5.1 complet SerPl 017 mg/dL ed ISE-sCn 02:03 c Lactate Bld-sCnc (02-06-2017 02:03) Lactate 0.9 complet 017 mmol/L ed Bld-sCn 02:03 c Magnesium SerPl-mCnc (02-06-2017 02:03) Magnesi 1.9 1.9-2.4 complet um 017 mg/dL ed SerPl-m 02:03 Cnc Bacteria Bronch Aerobe Cult (02-05-2017 13:51) Bacteri [id number] complet a XXX 017 5 ed Anaerob 13:51 Sharmin e+Aerob e Cult albican s (organi sm) SCT CALB SHARMIN ALBICAN S L CC XXX LGRO complet VC-aCnc 017 LIGHT ed 13:51 GROWTH L SPECIME RCVD complet N 017 ORDER ed CONTAIN 13:51 PROCESS ER ED. L INFO: Fungus Tiss Cult (02-05-2017 13:51) Bacteri [id number] complet a XXX 017 5 ed Anaerob 13:51 Sharmin e+Aerob e Cult albican s (organi sm) SCT CALB SHARMIN ALBICAN S L SPECIME RCVD complet N 017 ORDER ed CONTAIN 13:51 PROCESS ER ED. L INFO: TUAN Prep XXX (02-05-2017 13:51) TUAN [id number] complet 017 03 ed 13:51 sample: fungus not isolate d (findin g) SCT NOFEO NO FUNGAL ELEMENT S OBSERVE D L Resp virus 12 Pnl XXX PCR (02-05-2017 13:51) BAL PCR [id number] complet RESULT 017 09 ed 13:51 negativ e (qualif ier value) SCT NEGRP NEGATIV E for all analyte s L Mycobacterium XXX Ql Cult (02-05-2017 13:51) AFB, LIQ complet DIRECT 017 LIQUID ed SPECIME 13:51 L N EXAM AFB, SLBL complet DIRECT 017 Slightl ed SPECIME 13:51 y N EXAM bloody L AFB, CLDY complet DIRECT 017 Cloudy ed SPECIME 13:51 L N EXAM AFB, COLCON complet DIRECT 017 COLOR ed SPECIME 13:51 AND N EXAM CONSIST ENCY: L AFB, RAWSP complet DIRECT 017 RAW ed SPECIME 13:51 SPECIME N EXAM N L AFB, SUBM complet DIRECT 017 MODE OF ed SPECIME 13:51 N EXAM SUBMISS ION: L AFB, RCVD complet DIRECT 017 ORDER ed SPECIME 13:51 PROCESS N EXAM ED. L Acid fast Stn XXX Ql (02-05-2017 13:51) ACID [id number] complet FAST 017 8 not ed STAIN 13:51 seen (qualif ier value) SCT NOAFB NO AFB SEEN L HSV1+2 DNA XXX Ql PCR (02-05-2017 13:51) HSV1+2 DUP complet DNA XXX 017 DUPLICA ed Ql PCR 13:51 TE ORDER,C REDITED L Ca-I SerPl ISE-sCnc (02-05-2017 02:08) Ca-I 4.0 4.6-5.1 complet SerPl 017 mg/dL ed ISE-sCn 02:08 c Lactate Bld-sCnc (02-05-2017 02:08) Lactate 1.2 complet 017 mmol/L ed Bld-sCn 02:08 c Lactate Bld-sCnc (02-04-2017 16:50) Lactate 0.9 complet 017 mmol/L ed Bld-sCn 16:50 c Sodium Ur-sCnc (02-04-2017 14:09) Sodium 24 complet Ur-sCnc 017 mmol/L ed 14:09 Creat Ur-mCnc (02-04-2017 14:09) Creat 103 complet Ur-mCnc 017 mg/dL ed 14:09 Chloride Ur-sCnc (02-04-2017 14:09) Chlorid < 20 complet e 017 mmol/L ed Ur-sCnc 14:09 UUN Ur-mCnc (02-04-2017 14:09) UUN 587 complet Ur-mCnc 017 mg/dL ed 14:09 MDRO Wnd (02-04-2017 13:41) Bacteri ,REFER complet a XXX 017 TO ed Anaerob 13:41 ACCESSI e+Aerob ON e Cult [id number] FOR RESULTS Bacteri DUP complet a XXX 017 DUPLICA ed Anaerob 13:41 TE e+Aerob ORDER,C e Cult REDITED L CC XXX NOTAP complet VC-aCnc 017 NOT ed 13:41 APPLICA BLE L SPECIME RCVD complet N 017 ORDER ed CONTAIN 13:41 PROCESS ER ED. L INFO: Legionella Ag Ur Ql (02-04-2017 09:39) RESULT [id number] complet LEGIONE 017 09 ed LLA 09:39 negativ ANTIGEN e (qualif ier value) SCT PNLEG NEGATIV E for Legione lla pneumop josé luis serogro up 1 antigen . L S pneum Ag Ur Ql (02-04-2017 09:39) STREP REFEREN complet PNEUMO 017 CE ed AG 09:39 VALUE: RESULT NEGATIV E FOR STREPTO COCCUS PNEUMON IAE ANTIGEN . STREP (NOTE) complet PNEUMO 017 ed AG 09:39 RESULT STREP [id number] complet PNEUMO 017 09 ed AG 09:39 negativ RESULT e (qualif ier value) SCT NEGU NEGATIV E for Strepto coccus pneumon iae antigen . L Resp virus 12 Pnl XXX PCR (02-04-2017 09:39) COMP [id number] complet RESP 017 09 ed PCR 09:39 negativ PANEL e RESULT: (qualif ier value) SCT NEGRP NEGATIV E for all analyte s L TSH SerPl DL<=0.005 mIU/L-aCnc (02-04-2017 09:39) TSH 1.58 0.4-4.2 complet SerPl 017 uIU/mL ed DL<=0.0 09:39 05 mIU/L-a Cnc NT-proBNP SerPl-mCnc (02-04-2017 09:39) NT-proB 31125 0-899 complet KERRICK KLEANER OPERATOR 017 pg/mL ed SerPl-m 09:39 Cnc T4 Free SerPl-mCnc (02-04-2017 09:39) T4 Free 1.2 0.8-1.7 complet 017 ng/dL ed SerPl-m 09:39 Cnc Bacteria XXX Anaerobe+Aerobe Cult (02-04-2017 09:39) Bacteri [id number] complet a XXX 017 06 No ed Anaerob 09:39 growth e+Aerob (qualif e Cult ier value) SCT NGB6 NO GROWTH DAY 5. L SPECIME [id number] complet N 017 03 ed CONTAIN 09:39 blood ER volume INFO: estimat ion (proced ure) SCT BVA BLOOD CULTURE VOLUME ACCEPTA BLE L SPECIME FANB complet N 017 AEROBIC ed CONTAIN 09:39 FAN ER AND INFO: ANAEROB IC BLOOD CULTURE BOTTLES L Bacteria Bro Marcell Aerobe Cult (02-04-2017 09:30) Bacteri [id number] complet a XXX 017 5 ed Anaerob 09:30 Sharmin e+Aerob e Cult albican s (organi sm) SCT CALB SHARMIN ALBICAN S L SPECIME RCVD complet N 017 ORDER ed CONTAIN 09:30 PROCESS ER ED. L INFO: Bacteria XXX Anaerobe+Aerobe Cult (02-04-2017 07:17) Bacteri [id number] complet a XXX 017 06 No ed Anaerob 07:17 growth e+Aerob (qualif e Cult ier value) SCT NGB6 NO GROWTH DAY 5. L SPECIME [id number] complet N 017 03 ed CONTAIN 07:17 blood ER volume INFO: estimat ion (proced ure) SCT BVA BLOOD CULTURE VOLUME ACCEPTA BLE L SPECIME FANB complet N 017 AEROBIC ed CONTAIN 07:17 FAN ER AND INFO: ANAEROB IC BLOOD CULTURE BOTTLES L Magnesium SerPl-mCnc (02-04-2017 07:01) Magnesi 2.1 1.9-2.4 complet um 017 mg/dL ed SerPl-m 07:01 Cnc Hgb A1c MFr Bld (02-04-2017 07:01) Hgb A1c 6.5 % 4.7-6.0 complet MFr 017 ed Bld 07:01 Prealb SerPl-mCnc (02-04-2017 07:01) Prealb 10.4 20-41 complet SerPl-m 017 mg/dL ed Cnc 07:01 Phosphate SerPl-mCnc (02-04-2017 07:01) Phospha 5.8 2.5-4.5 complet te 017 mg/dL ed SerPl-m 07:01 Cnc Lactate Bld-sCnc (02-04-2017 06:42) Lactate 1.5 complet 017 mmol/L ed Bld-sCn 06:42 c MDRO Wnd (02-04-2017 06:36) Bacteri [id number] complet a XXX 017 01 ed Anaerob 06:36 Methici e+Aerob llin e Cult resista nt Staphyl ococcus aureus (organi sm) SCT MRSA1 (MRSA) L Bacteri [id number] complet a XXX 017 ed Anaerob 06:36 Staphyl e+Aerob ococcus e Cult aureus (organi sm) SCT SAUR STAPHYL OCOCCUS AUREUS L Bacteri [id number] complet a XXX 017 2 ed Anaerob 06:36 Enterob e+Aerob acter e Cult cloacae (organi sm) SCT ENTC ENTEROB ACTER CLOACAE L CC XXX NOTAP complet VC-aCnc 017 NOT ed 06:36 APPLICA BLE L SPECIME 10-23-2 RCVD complet N 017 ORDER ed CONTAIN 06:36 PROCESS ER ED. L INFO: Arterial blood gas (02-04-2017 05:10) Arteria - 7.3 -2.4-+2 complet l blood 017 MMOL/L .3 ed base 05:10 excess determi nation Arteria = 19.9 22.0-26 complet l blood 017 MMOL/L .0 ed 05:10 bicarbo zaid measure ment ( Arteria = 95 complet l blood 017 ed total 05:10 oxygen content ángel Arteria = 45.5 35.0-45 complet l blood 017 MMHG .0 ed 05:10 partial pressur e of carbo Serum = 5 complet or 017 ed plasma 05:10 phenyto in measure ment (m Arteria = 7.26 7.35-7. complet l blood 017 MMOL/L 45 ed pH 05:10 measure ment Arteria = 109.3 80-100 complet l whole 017 MMHG ed blood 05:10 PO2 at POC PRESSUR 10 complet E 017 ed SUPPORT 05:10 Arteria = 97.5 90-100 complet l blood 017 % ed oxygen 05:10 saturat ion calcula Arteria = 21.3 23-27 complet l blood 017 MMOL/L ed carbon 05:10 dioxide , total emmy TIDAL 400 complet VOLUME 017 ed 05:10 Measure = 16 complet ment of 017 ed 05:10 respira tory rate at maxim Gas panel in Arterial blood (02-04-2017 05:10) PRESSUR 10 complet E 017 ed SUPPORT 05:10 TIDAL 400 complet VOLUME 017 ed 05:10 Cardiac enzymes (02-04-2017 04:30) Serum = 2.2 0-4.0 complet or 017 U/L ed plasma 04:30 creatin e kinase MB (CK-M Serum = 4.7 0.0-3.6 complet or 017 ng/mL ed plasma 04:30 creatin e kinase MB measu Serum = 217 26-192 complet or 017 U/L ed plasma 04:30 creatin e kinase measure m Serum = 0.08 0.00-0. complet or 017 ng/mL 06 ed plasma 04:30 troponi n i.cardi ac measu Comment: 0.04 - 0.49 IS AN INDETERMINANT ZONE Comment: And can be consistent with the following diseases: Comment: Comment: Trauma Critically ill patients Richardson >30% TBSA Comment: CHF Hypothyroidism Amyloidosis Comment: Hypertension Myocarditis Sepsis Comment: Hypotension Rhabdomyolysis Vital exhaust. Comment: Postop surgery Pulmonary embolism CVA Comment: Renal failure Acute neurological disease Atrial fib. Glucose capillary blood glucometer (02-04-2017 02:28) Glucose = 180 70-110 complet 017 mg/dl ed capilla 02:[address] Arterial blood gas (02-04-2017 00:57) Arteria - 7.0 -2.4-+2 complet l blood 017 MMOL/L .3 ed base 00:57 excess determi [facility]'s Y Y L complet test 017 ed before 00:57 arteria l blood gas Arteria = 21.0 22.0-26 complet l blood 017 MMOL/L .0 ed 00:57 bicarbo zaid measure ment ( Arteria = 100 complet l blood 017 ed total 00:57 oxygen content ángel Arteria = 54.4 35.0-45 complet l blood 017 MMHG .0 ed 00:57 partial pressur e of carbo Comment: CRITICAL RESULTS Comment: RESULTS CALLED TO: DR GAMINO 02/04/179 Quang Holly Arteria = 7.20 7.35-7. complet l blood 017 MMOL/L 45 ed pH 00:57 measure ment Comment: CRITICAL RESULTS Comment: RESULTS CALLED TO: DR GAMINO 02/04/179 Quang Holly Arteria = 66.0 80-100 complet l whole 017 MMHG ed blood 00:57 PO2 at POC Arteria 10-23-2 = 88.0 90-100 complet l blood 017 % ed oxygen 00:57 saturat ion calcula SOURCE R/R complet 017 ed 00:57 Arteria = 22.6 23-27 complet l blood 017 MMOL/L ed carbon 00:57 dioxide , total emmy Gas panel in Arterial blood (02-04-2017 00:57) Arteria Y complet l 017 ed patency 00:57 Wrist artery --pre arteria l punctur e SOURCE R/R complet 017 ed 00:57 Lactate ser/plas (02-03-2017 23:05) Lactate = 3.0 0.4-2.0 complet 017 MMOL/L ed ser/yuli 23:05 s Comment: An elevated Lactic Acid is suggestive of sepsis and should Comment: be repeated within 6 hours of initial testing. Cardiac enzymes (02-03-2017 23:05) Serum = 2.0 0-4.0 complet or 017 U/L ed plasma 23:05 creatin e kinase MB (CK-M Serum = 4.3 0.0-3.6 complet or 017 ng/mL ed plasma 23:05 creatin e kinase MB measu Serum = 210 26-192 complet or 017 U/L ed plasma 23:05 creatin e kinase measure m Serum = 0.10 0.00-0. complet or 017 ng/mL 06 ed plasma 23:05 troponi n i.cardi ac measu Comment: 0.04 - 0.49 IS AN INDETERMINANT ZONE Comment: And can be consistent with the following diseases: Comment: Comment: Trauma Critically ill patients Richardson >30% TBSA Comment: CHF Hypothyroidism Amyloidosis Comment: Hypertension Myocarditis Sepsis Comment: Hypotension Rhabdomyolysis Vital exhaust. Comment: Postop surgery Pulmonary embolism CVA Comment: Renal failure Acute neurological disease Atrial fib. Arterial blood gas (02-03-2017 23:04) Kyle's Y Y L complet test 017 ed before 23:04 arteria l blood gas Arteria = 20.4 22.0-26 complet l blood 017 MMOL/L .0 ed 23:04 bicarbo zaid measure ment ( Arteria = 100 complet l blood 017 ed total 23:04 oxygen content ángel Arteria = 42.0 35.0-45 complet l blood 017 MMHG .0 ed 23:04 partial pressur e of carbo Arteria = 7.31 7.35-7. complet l blood 017 MMOL/L 45 ed pH 23:04 measure ment Arteria = 74.6 80-100 complet l whole 017 MMHG ed blood 23:04 PO2 at POC Arteria = 92.6 90-100 complet l blood 017 % ed oxygen 23:04 saturat ion calcula SOURCE R/R complet 017 ed 23:04 Arteria = 21.7 23-27 complet l blood 017 MMOL/L ed carbon 23:04 dioxide , total emmy Arteria - 5.9 -2.4-+2 complet l blood 017 MMOL/L .3 ed base 23:04 excess determi nation Gas panel in Arterial blood (02-03-2017 23:04) Arteria Y complet l 017 ed patency 23:04 Wrist artery --pre arteria l punctur e SOURCE R/R complet 017 ed 23:04 Urinalysis with microscopy (02-03-2017 22:25) Comment: Collected by nurse? Y Comment: Hold specimen in OE? N Urine 2 + NEG complet protein 017 mg/dL ed 22:25 measure ment by automat ed t Erythro OCC OCC 0 complet cytes 017 L ed detecti 22:25 rbc/hpf on in urine sedimen t Urine > = 1.005-1 complet specifi 017 1.030 .030 ed c 22:25 gravity measure ment [place] 20-50 0-5 complet s 017 20-50 L ed epithel 22:25 #/hpf ial cells detecti on in u Urine 0.2 0.2 NEG complet urobili 017 L ed nogen 22:25 E.U./dL detecti on by test str Urine = 5.5 5.0-8.5 complet pH 017 ed 22:25 Urine NEGATIV NEG complet nitrite 017 E ed 22:25 NEGATIV detecti E L on by test strip Mucus NEGATIV NEG complet detecti 017 E ed on in 22:25 NEGATIV urine E L sedimen t by lig Urine NEGATIV NEG complet ketones 017 E ed 22:25 NEGATIV detecti E L on by mg/dL automat ed lauryn Glucose = NEG complet ur 017 NEGATIV ed test 22:25 E strip Urine YELLOW YELLOW complet color 017 YELLOW ed 22:25 L Urine TRACE-I NEG complet blood 017 NTACT ed detecti 22:25 TRACE-I on NTACT L Urine NEGATIV NEG complet total 017 E ed bilirub 22:25 NEGATIV in E L detecti on by test Amorpho 2+ 2+ L NONE complet us 017 ed sedimen 22:25 t detecti on in urine se Urine CLOUDY CLEAR complet appeara 017 CLOUDY ed nce 22:25 L determi nation Blood lactic acid measurement (moles/vol (02-03-2017 20:50) Blood = 3.4 0.4-2.0 complet lactic 017 mmol/L ed acid 20:50 measure ment (moles/ vol Comment: An elevated Lactic Acid is suggestive of sepsis and should Comment: be repeated within 6 hours of initial testing. Comprehensive metabolic panel (02-03-2017 20:50) Protein = 8.7 6.4-8.2 complet total 017 gm/dL ed ser/yuli 20:50 s ALT = 131 12-78 complet (SGPT) 017 U/L ed ser/yuli 20:50 s Serum = 132 15-37 complet or 017 U/L ed plasma 20:50 asparta te aminotr ansfera Serum = 134 136-145 complet sodium 017 mmoL/L ed measure 20:50 ment Serum = 4.5 3.5-5.1 complet potassi 017 mmoL/L ed um 20:50 measure ment Serum = 120 74-106 complet or 017 mg/dL ed plasma 20:50 glucose measure ment (mas Serum = 5.2 1.3-3.2 complet globuli 017 gm/dL ed n 20:50 measure ment (mass/v olume) Estimat = 45 59- complet ed 017 ML/MIN ed glomeru 20:50 lar filtrat ion rate (GF Comment: REFERENCE RANGE: >60 ML/MIN/1.73 SQUARE METERS Comment: If this patient is -Ecuadorean, then multiply the Comment: result by 1.210. Estimat = 73 50-200 complet ion of 017 ML/MIN ed creatin 20:50 ine renal clearan ce Serum = 1.2 0.55-1. complet or 017 mg/dL 02 ed plasma 20:50 creatin ine measure ment ( Carbon = 24 21.0-32 complet dioxide 017 mmoL/L .0 ed 20:50 measure ment Serum = 97 98-107 complet or 017 mmoL/L ed plasma 20:50 chlorid e measure ment (mo Serum = 9.7 8.5-10. complet or 017 mg/dL 1 ed plasma 20:50 calcium measure ment (mas Serum = 27 7-18 complet or 017 mg/dL ed plasma 20:50 urea nitroge n measure men Serum = 0.7 0.2-1.0 complet or 017 mg/dL ed plasma 20:50 total bilirub in measure m Serum = 169 46-116 complet or 017 U/L ed plasma 20:50 alkalin e phospha tase emmy Serum = 3.5 3.4-5.0 complet or 017 gm/dL ed plasma 20:50 albumin measure ment (mas Serum = 0.7 1.1-1.8 complet or 017 ed plasma 20:50 albumin /globul in mass ra Cardiac enzymes (02-03-2017 20:50) Serum = 0.12 0.00-0. complet or 017 ng/mL 06 ed plasma 20:50 troponi n i.cardi ac measu Comment: 0.04 - 0.49 IS AN INDETERMINANT ZONE Comment: And can be consistent with the following diseases: Comment: Comment: Trauma Critically ill patients Richardson >30% TBSA Comment: CHF Hypothyroidism Amyloidosis Comment: Hypertension Myocarditis Sepsis Comment: Hypotension Rhabdomyolysis Vital exhaust. Comment: Postop surgery Pulmonary embolism CVA Comment: Renal failure Acute neurological disease Atrial fib. Serum = 250 26-192 complet or 017 U/L ed plasma 20:50 creatin e kinase measure m Serum = 5.0 0.0-3.6 complet or 017 ng/mL ed plasma 20:50 creatin e kinase MB measu Serum = 2.0 0-4.0 complet or 017 U/L ed plasma 20:50 creatin e kinase MB (CK-M Brain natriuretic peptide (02-03-2017 20:50) Brain = 1690 0-100 complet natriur 017 pg/mL ed etic 20:50 peptide Activated partial thromboplastin time (a (02-03-2017 20:50) Comment: IS PATIENT ON ANTICOAGULANTS? N Comment: PTT RESULTS MUST BE CALLED IF PT ON HEPARIN!!! Y Activat = 35.4 23.6-34 complet ed 017 SECONDS .0 ed partial 20:50 thrombo plastin time (a Comment: Comment: RESULTS CALLED TO Tacho SOMMERS RN 02/03/17 2138 Ti Yu Whole blood INR measurement (02-03-2017 20:50) Comment: IS PATIENT ON ANTICOAGULANTS? N Comment: PTT RESULTS MUST BE CALLED IF PT ON HEPARIN!!! Y Prothro = 13.5 9.4-11. complet mbin 017 SECONDS 8 ed time 20:50 (PT) in platele t poor p Whole = 1.25 0.9-1.1 complet blood 017 ed INR 20:50 measure ment Comment: INDICATION INR RANGE Comment: Comment: THERAPY FOR DVT, PE, ATRIAL FIB; 2.0 - 3.0 Comment: PROPHYLAXIS FOR VTE Comment: Comment: THERAPY FOR MECHANICAL HEART 2.5 - 3.5 Comment: VALVE; PREVENTION OF SYSTEMIC Comment: EMBOLISM SECONDARY TO AMI D-dimer (02-03-2017 20:50) Comment: IS PATIENT ON [...] values for the exclusion of these conditions. CBC w auto diff (02-03-2017 20:50) Blood = 13.5 4.8-10. complet leukocy 017 K/MM3 8 ed lauryn 20:50 count (number /volume ) Automat = 17.9 11.5-17 complet ed 017 % .5 ed erythro 20:50 cyte distrib ution width Red = 5.63 4.2-5.4 complet blood 017 M/mm3 ed cell 20:50 count Blood = 413 142-424 complet platele 017 K/mm3 ed t count 20:50 Automat = 7.6 7.4-10. complet ed 017 fl 4 ed blood 20:50 platele t mean volume emmy [place] % = 5.6 % 1.7-9.3 complet 017 ed 20:50 Absolut = 0.8 0.1-1.0 complet e 017 K/mm3 ed monocyt 20:50 e count Automat = 74.8 82.2-97 complet ed 017 fl .8 ed erythro 20:50 cyte mean corpusc ular v Automat = 30.4 31.8-35 complet ed 017 g/dl .4 ed erythro 20:50 cyte mean corpusc ular h Mean = 22.7 27-31.2 complet corpusc 017 pg ed ular 20:50 hemoglo bin (MCH) determ Lymphoc = 20.2 10-50.0 complet yte 017 % ed count, 20:50 blood, automat ed Absolut = 2.7 0.7-4.5 complet e 017 K/mm3 ed lymphoc 20:50 yte count Blood 10-22-2 = 12.8 12.2-16 complet hemoglo 017 g/dL .2 ed bin 20:50 measure ment (mass/v olum Comment: 02/03/172132: Comment: HGB previously reported as: 12.7 # g/dL Blood = 42.1 37.0-47 complet hematoc 017 % .0 ed rit 20:50 (volume fractio n) Granulo = 72.8 37.0-80 complet cyte 017 % .0 ed percent 20:50 age Blood = 9.8 1.8-7.8 complet granulo 017 K/mm3 ed cytes 20:50 automat ed count (numb Automat = 0.7 % 0.1-12. complet ed 017 0 ed blood 20:50 eosinop hils/10 0 leukocy t Automat = 0.1 0.0-0.4 complet ed 017 K/mm3 ed blood 20:50 eosinop hil count Baso % = 0.7 % 0.1-2.0 complet 017 ed 20:50 Automat = 0.1 0-0.2 complet ed 017 K/MM3 ed blood 20:50 basophi l count (count/ vo Glucose capillary blood glucometer (02-03-2017 20:44) Glucose = 124 70-110 complet 017 mg/dl ed capilla 20:[address] Glucose capillary blood glucometer (02-01-2017 06:29) Glucose = 126 70-110 complet 017 mg/dl ed capilla 06:[address] Glucose capillary blood glucometer (01-31-2017 20:33) Glucose 2 = 109 70-110 complet 017 mg/dl ed capilla 20:[address] Glucose capillary blood glucometer (01-31-2017 16:48) Glucose = 117 70-110 complet 017 mg/dl ed capilla 16:[address] Glucose capillary blood glucometer (01-31-2017 11:23) Glucose = 111 70-110 complet 017 mg/dl ed capilla 11:[address] Comprehensive metabolic panel (01-31-2017 07:00) Protein = [...] SQUARE METERS Comment: If this patient is -Ecuadorean, then multiply the Comment: result by 1.210. [...] ra CBC w auto diff (01-31-2017 07:00) Granulo = 70.4 37.0-80 complet cyte 017 [...] 0.5 % 0.1-2.0 complet 017 ed 07:00 Automat = 0.1 0-0.2 complet ed 017 [...] blood 07:00 platele t mean volume emmy [place] % = 7.6 % 1.7-9.3 complet 017 [...] .0 ed rit 07:00 (volume fractio n) Glucose capillary blood glucometer (01-31-2017 06:00) Glucose = 124 70-110 complet 017 mg/dl ed capilla 06:[address] Glucose capillary blood glucometer (01-30-2017 20:32) Glucose = 134 70-110 complet 017 mg/dl ed capilla 20:[address] Glucose capillary blood glucometer (01-30-2017 17:07) Glucose = 126 70-110 complet 017 mg/dl ed capilla 17:[address] Glucose capillary blood glucometer (01-30-2017 11:38) Glucose = 139 70-110 complet 017 mg/dl ed capilla 11:[address] Glucose capillary blood glucometer (01-30-2017 06:37) Glucose = 105 70-110 complet 017 mg/dl ed capilla 06:[address] Urine culture (01-30-2017 04:05) Urine [id number] complet culture 017 5 Yeast ed 04:05 SCT Y YEAST L Urine YEAST complet culture 017 ISOLATE ed 04:05 D. SENT TO [facility] FOR ID ON 7. Bacteria identified in Urine by Culture (01-30-2017 04:05) Bacteri --2 YEAST complet a 017 ISOLATE ed identif 04:05 D. SENT ied in TO Urine [facility] by FOR ID Culture ON 7. Bacteri -- Yeast complet a 017 ed identif 04:05 ied in Urine by Culture Glucose capillary blood glucometer (01-29-2017 20:36) Glucose --2 = 104 70-110 complet 017 mg/dl ed capilla 20:[address] Glucose capillary blood glucometer (01-29-2017 17:11) Glucose 10--2 = 106 70-110 complet 017 mg/dl ed [...] 09:20 smear examina tion by nely LYMPH 01-29-2 8 % 10-50 complet 017 ed 09:20 Hypochr 01-29-2 2+ 2+ L complet omatic 017 ed red 09:20 blood cell detecti on Manual = 2 % 0-3 complet blood 017 ed eosinop 09:20 hils/10 0 leukocy lauryn Automat = 1 % 0-8 complet ed 017 ed blood 09:20 band neutrop hil percent a CBC w auto diff (01-29-2017 09:20) Blood 01-29-2 = 10.8 4.8-10. complet leukocy 017 K/MM3 [...] blood 09:20 platele t mean volume emmy [place] % = 4.6 % 1.7-9.3 complet 017 [...] SQUARE METERS Comment: If this patient is -[place], then multiply the Comment: result by 1.210. Estimat = 83 50-200 complet ion of 017 ML/MIN ed creatin 09:20 ine renal clearan ce Serum = 1.1 0.55-1. complet or 017 mg/dL 02 ed plasma 09:20 creatin ine measure ment ( Carbon 10-17-2 = 30 21.0-32 complet dioxide 017 mmoL/L [...] complet 017 BRACHIA ed 08:00 L Arteria 10-16-2 = 93.9 90-100 complet l blood 017 [...] auto diff (01-28-2017 06:17) Comment: COMMENTS TO SEC ACCOUNTANT: 0600 Baso % = 0.1 % 0.1-2.0 [...] blood 06:17 platele t mean volume emmy [place] % = 4.9 % 1.7-9.3 complet 017 [...] metabolic panel (01-28-2017 06:17) Comment: COMMENTS TO SEC ACCOUNTANT: 0600 Protein = 7.4 6.4-8.2 complet total [...] SQUARE METERS Comment: If this patient is -Ecuadorean, then multiply the Comment: result by 1.210. [...] 06:17 urea nitroge n measure men Serum 10-16-2 = 0.3 0.2-1.0 complet or 017 mg/dL ed plasma 06:17 total bilirub in measure m Serum = 135 46-116 complet or 017 U/L ed plasma 06:17 alkalin e phospha tase emmy Serum 2 = 3.1 3.4-5.0 complet or 017 gm/dL ed plasma 06:17 albumin measure ment (mas Serum = 0.7 1.1-1.8 complet or 017 ed plasma 06:17 albumin /globul in mass ra Glucose capillary blood glucometer (01-28-2017 03:39) Glucose 01-28-2 = 116 70-110 complet 017 mg/dl ed capilla 03:[address] Glucose capillary blood glucometer (01-27-2017 20:32) Glucose 01-27-2 = 123 70-110 complet 017 mg/dl ed capilla 20:[address] Glucose capillary blood glucometer (01-27-2017 16:51) Glucose 01-27-2 = 136 70-110 complet 017 mg/dl ed capilla 16:[address] Glucose capillary blood glucometer (01-27-2017 11:42) Glucose --2 = 120 70-110 complet 017 mg/dl ed capilla 11:[address] Glucose capillary blood glucometer (01-27-2017 06:38) Glucose --2 = 127 70-110 complet 017 mg/dl ed capilla 06:[address] Basic metabolic panel (01-27-2017 05:35) Serum 01-27-2 = 137 136-145 complet sodium 017 mmoL/L ed measure 05:35 ment Serum = 5.0 3.5-5.1 complet potassi 017 mmoL/L ed um 05:35 measure ment Serum = 114 74-106 complet or 017 mg/dL ed plasma 05:35 glucose measure ment (mas Estimat = 38 59- complet ed 017 ML/MIN ed glomeru 05:35 lar filtrat ion rate (GF Comment: REFERENCE RANGE: >60 ML/MIN/1.73 SQUARE METERS Comment: If this patient is -Ecuadorean, then multiply the Comment: result by 1.210. Estimat = 64 50-200 complet ion of 017 [...] blood 05:35 platele t mean volume emmy [place] % = 5.6 % 1.7-9.3 complet 017 [...] 05:35 eosinop hils/10 0 leukocy t Automat = 0.2 0.0-0.4 complet ed 017 K/mm3 ed blood 05:35 eosinop hil count Baso % = 0.2 % 0.1-2.0 complet 017 ed 05:35 Automat = 0.0 0-0.2 complet ed 017 [...] SQUARE METERS Comment: If this patient is -Ecuadorean, then multiply the Comment: result by 1.210. [...] complet Qn 013 ed Auto 21:05 MEAN 09-07-2 33.1 31.8-35 complet CORPUSC 013 g/dl .4 [...] complet ACID 013 mg/dL ed 11:30 Glucose [facility] Glucom[facility] (08-19-2012 11:55) Glucose 166 70-110 complet BldC 013 mg/dl ed Glucomt 11:55 [facility] ([facility]-2012 06:34) Glucose 103 70-110 complet BldC 013 mg/dl ed Glucomt 06:34 [facility] COMPREHENSIVE METABOLIC PANEL (08-19-2012 06:05) Glucose [...] K/MM3 8 ed Auto 06:05 RBC # 3.85 4.2-5.4 complet Bld 013 M/mm3 ed [...] K/MM3 ed Bld 06:05 Auto Glucose BldC Glucomtr-[facility] (08-18-2012 20:33) Glucose 05-06-2 150 70-110 complet BldC 013 mg/dl ed Glucomt 20:33 r-nc Glucose BldC Glucomtr-[facility] (08-18-2012 17:05) Glucose 05-06-2 162 70-110 complet BldC 013 mg/dl ed Glucomt 17:05 r-nc Glucose BldC Glucomtr-[facility] (08-18-2012 11:49) Glucose 05-06-2 130 70-110 [...] mg/dL ed - 11:38 DIPSTIC K URINE 08-18-2 0.2 NEG complet UROBILI 013 E.U./dL ed NOGEN - 11:38 DIPSTIC K URINE NEGATIV NEG complet NITRATE 013 E ed - 11:38 DIPSTIC K URINE NEGATIV NEG complet LEUK 013 E ed ESTERAS 11:38 E URINE 3-5 O complet WBC 013 wbc/hpf ed 11:38 URINE OCC 0-5 complet SQUAMOU 013 #/hpf ed S CELLS 11:38 Glucose BldC [facility]comtr[facility] (08-18-2012 06:37) Glucose 108 70-110 complet BldC 013 mg/dl ed Glucomt 06:37 r-[facility] Glucose BldC Glucomtr[facility] (08-17-2012 21:07) Glucose 08-17- 176 70-110 complet BldC 013 mg/dl ed Glucomt 21:07 r-[facility] COMPREHENSIVE METABOLIC PANEL (08-17-2012 12:45) Glucose [...] K/MM3 ed Bld 12:45 Auto Glucose dC [facility]comtr-[facility] (06-01-2012 06:56) Glucose 101 70-110 complet BldC 013 mg/dl ed Glucomt 06:56 [facility] Glucose dC Glucomtr-[facility] (05-31-2012 20:27) Glucose 161 70-110 complet BldC 013 mg/dl ed Glucomt 20:27 [facility] Glucose BldC Glucomtr-[facility] (05-31-2012 16:53) Glucose 115 70-110 complet BldC 013 mg/dl ed Glucomt 16:53 [facility] BASIC METABOLIC PANEL (05-31-2012 12:22) Glucose [...] 1 ed SerPl-m 12:22 Cnc Glucose dC [facility]comtr-[facility] (05-31-2012 11:57) Glucose 175 70-110 complet BldC 013 mg/dl ed Glucomt 11:57 [facility] Glucose dC [facility]comtr[facility] (05-31-2012 09:35) Glucose 105 70-110 complet BldC 013 mg/dl ed Glucomt 09:35 [facility] Glucose BldC [facility]comtr[facility] (05-31-2012 07:47) Glucose 170 70-110 complet BldC 013 mg/dl ed Glucomt 07:47 [facility] Glucose BldC [facility]comtr[facility] (05-31-2012 06:22) Glucose 89 70-110 complet BldC 013 mg/dl ed Glucomt 06:22 [facility] Glucose dC [facility]comtr[facility] (05-30-2012 21:31) Glucose 163 70-110 complet BldC 013 mg/dl ed Glucomt 21:31 r-mCnc Glucose BldC Glucomtr-nc (05-30-2012 16:38) Glucose 150 70-110 complet BldC 013 mg/dl ed Glucomt 16:38 r-mCnc Glucose BldC Glucomtr[facility] (05-30-2012 11:35) Glucose 05-30- 104 70-110 complet BldC 013 mg/dl ed Glucomt 11:35 r-mCnc Glucose BldC [facility]comtr[facility] (05-30-2012 06:33) Glucose 109 70-110 complet BldC 013 mg/dl ed Glucomt 06:33 [facility] BASIC METABOLIC PANEL (05-30-2012 06:32) Glucose [...] K/MM3 8 ed Auto 06:32 RBC # 05-30- 4.04 4.2-5.4 complet Bld 013 M/mm3 ed Auto 06:32 Hgb 02-15-2 10.7 12.2-16 complet Bld-mCn 013 g/dL .2 ed c 06:32 Hct Fr 02-15-2 33.9 % 37.0-47 complet Bld 013 .0 [...] Bld 013 .0 ed 23:50 MCV RBC 02-13-2 82.1 fl 82.2-97 complet 013 .8 ed [...] 013 0 ed Bld 23:50 Auto Basophi -13-2 0.3 % 0.1-2.0 complet ls Fr 013 [...] Procedures Procedure DOS Code Location Performer Comment CLOSURE 86.59 M. Saturnino Garcia MD SUBCUTANE OUS NEC Encounters Encounter Start End Date Code Location Performer Type Date Emergency VALERY Shaikh MD (ER) 3 20:50 3 21:50 [facility] Emergency VALERY Flowers MD (ER) 3 11:31 3 12:38 [facility] Emergency VALERY Shaikh MD (ER) 3 19:20 3 20:31 [facility] Inpatient OPAL Blanca ([place]) 3 12:50 3 14:20 [facility] Inpatient OPAL Breaux MD ([place]) 3 23:10 3 10:45 [facility]
--- OUTSIDE RECORDS SUMMARY | 2017-02-17 03:50 | External Medical Summary Rpt | CCD ---
Author Author , DWIGHT QUINTANILLA Address Unknown Phone [email or web address] Care Team Providers Care Director Of Neurology Name Role Phone Leanne Shaikh MD, Unavailable Unavailable Leanne Blanca MD, Unavailable Unavailable Eduin Blanca MD Purpose Continuity of Care Document - 05-28-2012 through 2016 Problems Code Diagnosis DOS Provider Status 276.8 Hypokalemia [facility] 416.9 [facility] [place] [facility] [id number] Gast[facility] [id number] Pulmonary [facility] [id number] Chronic [facility] Allergies, Adverse Reactions, Alerts Type [...] RO 07 -0 SE 90 6- Lo VT 07 20 ng DE 32 13 er [...] 5 ti MG ve TA BL ET VT 11 05 1 No RA 52 -0 [...] TF 07 -0 OR 90 5- Lo VT 17 20 ng N 22 13 er [...] 1 Ac TA ti BL ve ET IL 00 02 2 No OM 64 -1 [...] RO 40 -1 SE 96 4- Lo VT 10 20 ng DE 20 13 er [...] TF 07 -1 OR 90 4- Lo VT 17 20 ng N 22 13 er [...] Ac GM ti /1 ve 0 ML [place] SP LI 00 02 3 No PI 07 -1 TO 10 4- Lo R 15 20 ng 40 74 13 er 0 MG Ac ti TA ve BL ET Ga 00 02 3 No ba 17 -1 pe 24 4- Lo nt 44 20 ng in 31 13 er 0 60 Ac 0M ti G ve Ta bl et [place] 00 02 3 No OT 00 -1 [...] Bacteria Bronch Aerobe Cult (02-05-2017 13:51) Bacteri [id number] complet a XXX 017 5 ed Anaerob 13:51 Sharmin e+Aerob e Cult albican s (organi sm) SCT CALB SHARMIN ALBICAN S L CC XXX LGRO complet VC-aCnc 017 LIGHT ed 13:51 GROWTH L SPECIME RCVD complet N 017 ORDER ed CONTAIN 13:51 PROCESS ER ED. L INFO: Fungus Tiss Cult (02-05-2017 13:51) Bacteri [id number] complet a XXX 017 5 ed Anaerob 13:51 Sharmin e+Aerob e Cult albican s (organi sm) SCT CALB SHARMIN ALBICAN S L SPECIME RCVD complet N 017 ORDER ed CONTAIN 13:51 PROCESS ER ED. L INFO: TUAN Prep XXX (02-05-2017 13:51) TUAN [id number] complet 017 03 ed 13:51 sample: fungus not isolate d (findin g) SCT NOFEO NO FUNGAL ELEMENT S OBSERVE D L Resp virus 12 Pnl XXX PCR (02-05-2017 13:51) BAL PCR [id number] complet RESULT 017 09 ed 13:51 negativ [...] fast Stn XXX Ql (02-05-2017 13:51) ACID [id number] complet FAST 017 8 not ed STAIN [...] Anaerob 13:41 ACCESSI e+Aerob ON e Cult [id number] FOR RESULTS Bacteri DUP complet a XXX 017 DUPLICA ed Anaerob 13:41 TE e+Aerob ORDER,C e Cult REDITED L CC XXX NOTAP complet VC-aCnc 017 NOT ed 13:41 APPLICA BLE L SPECIME RCVD complet N 017 ORDER ed CONTAIN 13:41 PROCESS ER ED. L INFO: Legionella Ag Ur Ql (02-04-2017 09:39) RESULT [id number] complet LEGIONE 017 09 ed LLA 09:39 [...] PNEUMO 017 ed AG 09:39 RESULT STREP [id number] complet PNEUMO 017 09 ed AG 09:39 negativ RESULT e (qualif ier value) SCT NEGU NEGATIV E for Strepto coccus pneumon iae antigen . L Resp virus 12 Pnl XXX PCR (02-04-2017 09:39) COMP [id number] complet RESP 017 09 ed PCR 09:39 negativ PANEL e RESULT: (qualif ier value) SCT NEGRP NEGATIV E for all analyte s L TSH SerPl DL<=0.005 mIU/L-aCnc (02-04-2017 09:39) TSH 1.58 0.4-4.2 complet SerPl 017 uIU/mL ed DL<=0.0 09:39 05 mIU/L-a Cnc NT-proBNP SerPl-mCnc (02-04-2017 09:39) NT-proB [id number] 0-899 complet ROLL BUILDER 017 pg/mL ed SerPl-m 09:39 Cnc T4 Free SerPl-mCnc (02-04-2017 09:39) T4 Free 1.2 0.8-1.7 complet 017 ng/dL ed SerPl-m 09:39 Cnc Bacteria XXX Anaerobe+Aerobe Cult (02-04-2017 09:39) Bacteri [id number] complet a XXX 017 06 No ed Anaerob 09:39 growth e+Aerob (qualif e Cult ier value) SCT NGB6 NO GROWTH DAY 5. L SPECIME [id number] complet N 017 03 ed CONTAIN 09:39 blood ER volume INFO: estimat ion (proced ure) SCT BVA BLOOD CULTURE VOLUME ACCEPTA BLE L SPECIME FANB complet N 017 AEROBIC ed CONTAIN 09:39 FAN ER AND INFO: ANAEROB IC BLOOD CULTURE BOTTLES L Bacteria Bro [place] Aerobe Cult (02-04-2017 09:30) Bacteri [id number] complet a XXX 017 5 ed Anaerob 09:30 Sharmin e+Aerob e Cult albican s (organi sm) SCT CALB SHARMIN ALBICAN S L SPECIME RCVD complet N 017 ORDER ed CONTAIN 09:30 PROCESS ER ED. L INFO: Bacteria XXX Anaerobe+Aerobe Cult (02-04-2017 07:17) Bacteri [id number] complet a XXX 017 06 No ed Anaerob 07:17 growth e+Aerob (qualif e Cult ier value) SCT NGB6 NO GROWTH DAY 5. L SPECIME [id number] complet N 017 03 ed CONTAIN 07:17 [...] 06:42 c MDRO Wnd (02-04-2017 06:36) Bacteri [id number] complet a XXX 017 01 ed Anaerob 06:36 Methici e+Aerob llin e Cult resista nt Staphyl ococcus aureus (organi sm) SCT MRSA1 (MRSA) L Bacteri [id number] complet a XXX 017 ed Anaerob 06:36 Staphyl e+Aerob ococcus e Cult aureus (organi sm) SCT SAUR STAPHYL OCOCCUS AUREUS L Bacteri [id number] complet a XXX 017 2 ed Anaerob [...] MMOL/L .3 ed base 00:[address] [facility]'s Y Y L complet test 017 ed [...] CRITICAL RESULTS Comment: RESULTS CALLED TO: DR GAIMNO 02/04/179 Quang Holly Arteria = 66.0 80-100 [...] SQUARE METERS Comment: If this patient is -Guatemalan, then multiply the Comment: result by 1.210. [...] blood 20:50 platele t mean volume emmy [place] % = 5.6 % 1.7-9.3 complet 017 [...] SQUARE METERS Comment: If this patient is -Guatemalan, then multiply the Comment: result by 1.210. [...] 4.8-10. complet leukocy 017 K/MM3 8 ed aluryn 07:00 count (number /volume ) Automat = 18.1 11.5-17 complet ed 017 % .5 ed erythro 07:00 cyte distrib ution width Red = 4.18 4.2-5.4 complet blood 017 M/mm3 ed cell 07:00 count Blood = 271 142-424 complet platele 017 K/mm3 ed t count 07:00 Automat = 7.4 7.4-10. complet ed 017 fl 4 ed blood 07:00 platele t mean volume emmy [place] % = 7.6 % 1.7-9.3 complet 017 [...] glucome ter Urine culture (01-30-2017 04:05) Urine [id number] complet culture 017 5 Yeast ed 04:05 [...] blood 09:20 platele t mean volume emmy [place] % = 4.6 % 1.7-9.3 complet 017 [...] SQUARE METERS Comment: If this patient is -Guatemalan, then multiply the Comment: result by 1.210. [...] auto diff (01-28-2017 06:17) Comment: COMMENTS TO FIRM ADMINISTRATOR: 0600 Baso % = 0.1 % 0.1-2.0 [...] blood 06:17 platele t mean volume emmy [place] % = 4.9 % 1.7-9.3 complet 017 [...] metabolic panel (01-28-2017 06:17) Comment: COMMENTS TO FIRM ADMINISTRATOR: 0600 Protein = 7.4 6.4-8.2 complet total [...] SQUARE METERS Comment: If this patient is -Guatemalan, then multiply the Comment: result by 1.210. [...] SQUARE METERS Comment: If this patient is -Guatemalan, then multiply the Comment: result by 1.210. [...] blood 05:35 platele t mean volume emmy [place] % = 5.6 % 1.7-9.3 complet 017 [...] SQUARE METERS Comment: If this patient is -Guatemalan, then multiply the Comment: result by 1.210. [...] 013 mg/dL ed 11:30 Glucose [facility]com-[facility] (08-19-2012 11:55) Glucose 166 70-110 complet BldC 013 mg/dl ed Glucomt 11:55 r-[facility] ([facility]2012 06:34) Glucose 103 70-110 complet BldC 013 mg/dl ed Glucomt 06:34 r-[facility] COMPREHENSIVE METABOLIC PANEL [...] K/MM3 ed Bld 06:05 Auto Glucose BldC Glucomtr-[facility] (08-18-2012 20:33) Glucose 05-06-2 150 70-110 complet BldC 013 mg/dl ed Glucomt 20:33 r-nc Glucose BldC Glucomtr-[facility] (08-18-2012 17:05) Glucose 05-06-2 162 70-110 complet BldC 013 mg/dl ed Glucomt 17:05 r-nc Glucose BldC Glucomtr-[facility] (08-18-2012 11:49) Glucose 05-06-2 130 70-110 complet [...] #/hpf ed S CELLS 11:38 Glucose BldC Glucomtr-[facility] (08-18-2012 06:37) Glucose 108 70-110 complet BldC 013 mg/dl ed Glucomt 06:37 r-[facility] Glucose BldC Glucomtr-[facility] (08-17-2012 21:07) Glucose 08-17- 176 70-110 complet BldC 013 mg/dl ed Glucomt 21:07 r-[facility] COMPREHENSIVE METABOLIC PANEL (08-17-2012 12:45) Glucose 164 [...] K/MM3 ed Bld 12:45 Auto Glucose dC Glucomtr-[facility] (06-01-2012 06:56) Glucose 101 70-110 complet BldC 013 mg/dl ed Glucomt 06:56 [facility] Glucose dC Glucomtr-[facility] (05-31-2012 20:27) Glucose 161 70-110 complet BldC 013 mg/dl ed Glucomt 20:27 [facility] Glucose BldC Glucomtr-[facility] (05-31-2012 16:53) Glucose 115 70-110 complet BldC 013 mg/dl ed Glucomt 16:53 [facility] BASIC METABOLIC PANEL (05-31-2012 12:22) Glucose [...] 1 ed SerPl-m 12:22 Cnc Glucose dC Glucomtr-[facility] (05-31-2012 11:57) Glucose 175 70-110 complet BldC 013 mg/dl ed Glucomt 11:57 r-[facility] Glucose dC Glucomtr-[facility] (05-31-2012 09:35) Glucose 105 70-110 complet BldC 013 mg/dl ed Glucomt 09:35 r-[facility] Glucose BldC Glucomtr-[facility] (05-31-2012 07:47) Glucose 170 70-110 complet BldC 013 mg/dl ed Glucomt 07:47 r-[facility] Glucose BldC Glucomtr-[facility] (05-31-2012 06:22) Glucose 89 70-110 complet BldC 013 mg/dl ed Glucomt 06:22 r-[facility] Glucose dC Glucomtr-[facility] (05-30-2012 21:31) Glucose 163 70-110 complet BldC 013 mg/dl ed Glucomt 21:31 r-mCnc Glucose BldC Glucomtr-nc (05-30-2012 16:38) Glucose 150 70-110 complet BldC 013 mg/dl ed Glucomt 16:38 r-mCnc Glucose BldC Glucomtr-[facility] (05-30-2012 11:35) Glucose 05-30- 104 70-110 complet BldC 013 mg/dl ed Glucomt 11:35 r-mCnc Glucose BldC Glucomtr-[facility] (05-30-2012 06:33) Glucose 109 70-110 complet BldC 013 mg/dl ed Glucomt 06:33 [facility] BASIC METABOLIC PANEL (05-30-2012 06:32) Glucose 105 [...] Shaikh MD (ER) 3 20:50 3 21:50 [facility] VALERY Flowers MD (ER) 3 11:31 3 12:38 [facility] Emergency VALERY Shaikh MD (ER) 3 19:20 3 20:31 [facility] Inpatient OPAL Blanca ([place]) 3 12:50 3 14:20 [facility] Inpatient OPAL Breaux MD ([place]) 3 23:10 3 10:45 [facility]
--- OUTSIDE RECORDS SUMMARY | 2017-02-17 03:52 | External Medical Summary Rpt | CCD ---
Demographics Preferred Language Palestinian Marital Status Unknown Holiness Affiliation Unknown Race Unknown Ethnic Group Unknown Author Author , DWIGHT Organization DWIGHT Address Unknown Phone Immunization Unable to retrieve immunization data due to connection failure with Immunization Registry. Please try again later.
--- OUTSIDE RECORDS SUMMARY | 2017-02-17 03:52 | External Medical Summary Rpt | CCD ---
Demographics Preferred Language Pakistani Marital Status Unknown Confucianist Affiliation Unknown Race Unknown Ethnic Group Unknown Author Author , DWIGHT Organization DWIGHT Address Unknown Phone Immunization Unable to retrieve immunization data due to connection failure with Immunization Registry. Please try again later.
--- OUTSIDE RECORDS SUMMARY | 2017-02-17 03:52 | External Medical Summary Rpt | CCD ---
Author Author [employer] Organization [employer] Address Unknown Phone Unavailable Purpose Continuity of Care Document - through 2016
--- OUTSIDE RECORDS SUMMARY | 2017-02-17 03:54 | External Medical Summary Rpt ---
Author Author [facility] Sharma, ANKUSHMISTY [employer] Organization [employer] Address Unknown Phone Unavailable Results Gas panel in Arterial blood Observa Value Referen Units Interpr Notes Date tion ce etation Range Base -2.4-+2.3 MMOL/L Low No Oct 23 excess in informati 2017 5:10 Arterial on in AM blood source data Bicarbona 22.0 - MMOL/L Low No Oct 23 te 26.0 informati 2017 5:10 [Moles/vo on in AM lume] in source Arterial data blood Oxygen No No No No Oct 23 content informati informati informati informati 2017 5:10 in on in on in on in on in AM Arterial source source source source blood data data data data Carbon 35.0 - MMHG High No Oct 23 dioxide 45.0 informati 2017 5:10 [Partial on in AM pressure] source in data Arterial blood Phenytoin No No No No Oct 23 informati informati informati informati 2017 5:10 [Mass/vol on in on in on in on in AM ume] in source source source source Serum or data data data data Plasma pH of 7.35 - MMOL/L Low No Oct 23 Arterial 7.45 informati 2017 5:10 blood on in AM source data Oxygen 80 - 100 MMHG High No Oct 23 [Partial informati 2017 5:10 pressure] on in AM in source Arterial data blood PRESSUR 10 No No No No Oct 23 E informa informa informa informa 2017 SUPPORT tion in tion in tion in tion in 5:10 AM source source source source data data data data Oxygen 90 - 100 % Normal No Oct 23 saturatio informati 2017 5:10 n.calcula on in AM eber from source oxygen data partial pressure in Arterial blood Carbon 23 - 27 MMOL/L Low No Oct 23 dioxide, informati 2017 5:10 total on in AM [Moles/vo source lume] in data Arterial blood TIDAL 400 No No No No Oct 23 VOLUME informa informa informa informa 2017 tion in tion in tion in tion in 5:10 AM source source source source data data data data Respirato No No No No Feb 04 ry rate informati informati informati informati 2016 5:10 --at on in on in on in on in AM maximum source source source source voluntary data data data data ventilati on Cardiac enzymes Observa Value Referen Units Interpr Notes Date ti ce etation Range Creatine 0 - 4.0 U/L Normal No Feb 04 kinase.MB informati 2017 4:30 /Creatine on in AM source kinase.to data leatha [Ratio] in Serum or Plasma Creatine 0.0 - 3.6 ng/mL High No Feb 04 kinase.MB informati 2017 4:30 on in AM [Mass/vol source ume] in data Serum or Plasma Creatine 26 - 192 U/L High No Feb 04 kinase informati 2017 4:30 [Enzymati on in AM c source activity/ data volume] in Serum or Plasma Troponin 0.00 - ng/mL High 0.04 - Feb 04 I.cardiac 0.06 0.49 IS 2017 4:30 AN AM [Mass/vol INDETERMI ume] in NANT Serum or ZONEAnd Plasma can be consisten t with the following diseases: Trauma Criticall y ill patients Richardson >30% TBSACHF Hypothyro idism Amyloidos isHyperte nsion Myocardit is SepsisHyp otension Rhabdomyo lysis Vital exhaust.P ostop surgery Pulmonary embolism CVARenal failure Acute neurologi erica disease Atrial fib. Glucose [Mass/volume] in Capillary blood by Glucometer Observa Value Referen Units Interpr Notes Date ti ce etation Range Glucose 70 - 110 mg/dl High No Feb 04 [Mass/vol informati 2017 2:28 ume] in on in AM Capillary source blood by data Glucomete r Gas panel in Arterial blood Observa Value Referen Units Interpr Notes Date ti ce etation Range Base -2.4-+2.3 MMOL/L Low No Feb 04 excess in informati 2017 Arterial on in 12:57 AM blood source data Arteria Y No No No No Feb 04 l informa informa informa informa 2017 patency tion in tion in tion in tion in 12:57 Wrist source source source source AM artery data data data data --pre arteria l punctur e Bicarbona 22.0 - MMOL/L Low No Oct 23 te 26.0 informati 2017 [Moles/vo on in 12:57 AM lume] in source Arterial data blood Oxygen No No No No Feb 04 content informati informati informati informati 2017 in on in on in on in on in 12:57 AM Arterial source source source source blood data data data data Carbon 35.0 - MMHG High Feb 04 dioxide 45.0 2016 [Partial CRITICAL 12:57 AM pressure] RESULTS in Arterial RESU blood LTS CALLED TO: DR GAMINO 02/04/17 0059 Quang Holly pH of 7.35 - MMOL/L Low alert Feb 04 Arterial 7.45 2017 blood CRITICAL 12:57 AM RESULTS RESU LTS CALLED TO: DR GAMINO 02/04/17 0059 Quang Holly Oxygen 80 - 100 MMHG Low No Feb 04 [Partial informati 2017 pressure] on in 12:57 AM in source Arterial data blood Oxygen 90 - 100 % Low No Feb 04 saturatio informati 2017 n.calcula on in 12:57 AM eber from source oxygen data partial pressure in Arterial blood SOURCE R/R No No No No Feb 04 informa informa informa informa 2017 tion in tion in tion in tion in 12:57 source source source source AM data data data data Carbon 23 - 27 MMOL/L Low No Feb 04 dioxide, informati 2017 total on in 12:57 AM [Moles/vo source lume] in data Arterial blood Cardiac enzymes Observa Value Referen Units Interpr Notes Date tion ce etation Range Creatine 0 - 4.0 U/L Normal No Feb 03 kinase.MB inform2016 /Creatine on in 11:05 PM source kinase.to data leatha [Ratio] in Serum or Plasma Creatine 0.0 - 3.6 ng/mL High No Feb 03 kinase.MB informati 2016 on in 11:05 PM [Mass/vol source ume] in data Serum or Plasma Creatine 26 - 192 U/L High No Feb 03 kinase informati 2016 [Enzymati on in 11:05 PM c source activity/ data volume] in Serum or Plasma Troponin 0.00 - ng/mL High 0.04 - Oct 22 I.cardiac 0.06 0.49 IS 2017 AN 11:05 PM [Mass/vol INDETERMI ume] in NANT Serum or ZONEAnd Plasma can be consisten t with the following diseases: Trauma Criticall y ill patients Richardson >30% TBSACHF Hypothyro idism Amyloidos isHyperte nsion Myocardit is SepsisHyp otension Rhabdomyo lysis Vital exhaust.P ostop surgery Pulmonary embolism CVARenal failure Acute neurologi erica disease Atrial fib. Lactate [Moles/volume] in Serum or Plasma Observa Value Referen Units Interpr Notes Date tion ce etation Range Lactate 0.4 - 2.0 MMOL/L High An Jan 22 [Moles/vo elevated 2017 lume] in Lactic 11:05 PM Serum or Acid is Plasma suggestiv e of sepsis and shouldbe repeated within 6 hours of initial testing. Gas panel in Arterial blood Observa Value Referen Units Interpr Notes Date tion ce etation Range Base -2.4-+2.3 MMOL/L Low No Feb 03 excess in informati 2016 Arterial on in 11:04 PM blood source data Arteria Y No No No No Feb 03 l informa informa informa informa 2017 patency tion in tion in tion in tion in 11:04 Wrist source source source source PM artery data data data data --pre arteria l punctur e Bicarbona 22.0 - MMOL/L Low No Feb 03 te 26.0 informati 2016 [Moles/vo on in 11:04 PM lume] in source Arterial data blood Oxygen No No No No Feb 03 content informati informati informati informati 2017 in on in on in on in on in 11:04 PM Arterial source source source source blood data data data data Carbon 35.0 - MMHG Normal No Feb 03 dioxide 45.0 informati 2016 [Partial on in 11:04 PM pressure] source in data Arterial blood pH of 7.35 - MMOL/L Low No Feb 03 Arterial 7.45 informati 2017 blood on in 11:04 PM source data Oxygen 80 - 100 MMHG Low No Jan 22 [Partial informati 2017 pressure] on in 11:04 PM in source Arterial data blood Oxygen 90 - 100 % Normal No Jan 22 saturatio informati 2017 n.calcula on in 11:04 PM eber from source oxygen data partial pressure in Arterial blood SOURCE R/R No No No No Feb 03 informa informa informa informa 2017 tion in tion in tion in tion in 11:04 source source source source PM data data data data Carbon 23 - 27 MMOL/L Low No Feb 03 dioxide, informati 2017 total on in 11:04 PM [Moles/vo source lume] in data Arterial blood Natriutietic peptide B [Mass/volume] in Serum or Plasma Observa Value Referen Units Interpr Notes Date tion ce etation Range Natriutie 0 - 100 pg/mL High No Feb 03 tic informati 2016 8:50 peptide B on in PM source [Mass/vol data ume] in Serum or Plasma Cardiac enzymes Observa Value Referen Units Interpr Notes Date ti ce etation Range Creatine 0 - 4.0 U/L Normal No Feb 03 kinase.MB informati 2016 8:50 /Creatine on in PM source kinase.to data leatha [Ratio] in Serum or Plasma Creatine 0.0 - 3.6 ng/mL High No Feb 03 kinase.MB informati 2016 8:50 on in PM [Mass/vol source ume] in data Serum or Plasma Creatine 26 - 192 U/L High No Feb 03 kinase informati 2017 8:50 [Enzymati on in PM c source activity/ data volume] in Serum or Plasma Troponin 0.00 - ng/mL High 0.04 - Feb 03 I.cardiac 0.06 0.49 IS 2017 8:50 AN PM [Mass/vol INDETERMI ume] in NANT Serum or ZONEAnd Plasma can be consisten t with the following diseases: Trauma Criticall y ill patients Richardson >30% TBSACHF Hypothyro idism Amyloidos isHyperte nsion Myocardit is SepsisHyp otension Rhabdomyo lysis Vital exhaust.P ostop surgery Pulmonary embolism CVARenal failure Acute neurologi erica disease Atrial fib. Comprehensive metabolic 2000 panel in Serum or Plasma Observa Value Referen Units Interpr Notes Date ti ce etation Range Albumin/G 1.1 - 1.8 No Low No Feb 03 lobulin informati informati 2016 8:50 [Mass on in on in PM ratio] in source source Serum or data data Plasma Albumin 3.4 - 5.0 gm/dL Normal No Feb 03 [Mass/vol informati 2016 8:50 ume] in on in PM Serum or source Plasma data Alkaline 46 - 116 U/L High No Feb 03 phosphata informati 2017 8:50 se on in PM [Enzymati source c data activity/ volume] in Serum or Plasma Bilirubin 0.2 - 1.0 mg/dL Normal No Feb 03 .total informati 2017 8:50 [Mass/vol on in PM ume] in source Serum or data Plasma Urea 7 - 18 mg/dL High No Feb 03 nitrogen informati 2016 8:50 [Mass/vol on in PM ume] in source Serum or data Plasma Calcium 8.5 - mg/dL Normal No Feb 03 [Mass/vol 10.1 informati 2017 8:50 ume] in on in PM Serum or source Plasma data Chloride 98 - 107 mmoL/L Low No Feb 03 [Moles/vo informati 2017 8:50 lume] in on in PM Serum or source Plasma data Carbon 21.0 - mmoL/L Normal No Feb 03 dioxide, 32.0 informati 2017 8:50 total on in PM [Moles/vo source lume] in data Serum or Plasma Creatinin 0.55 - mg/dL High No Feb 03 e 1.02 informati 2016 8:50 [Mass/vol on in PM ume] in source Serum or data Plasma Creatinin 50 - 200 ML/MIN Normal No Feb 03 e renal informati 2017 8:50 clearance on in PM source predicted data by Cockcroft -Gault formula Estimated 59- ML/MIN Low REFERENCE Feb 03 RANGE: 2017 8:50 glomerula >60 PM r ML/MIN/1. filtratio 73 SQUARE n rate METERSIf (GF this patient is -A merican, then multiply theresult by 1.210. Globulin 1.3 - 3.2 gm/dL High No Feb 03 [Mass/vol informati 2017 8:50 ume] in on in PM Serum source data Glucose 74 - 106 mg/dL High No Feb 03 [Mass/vol informati 2017 8:50 ume] in on in PM Serum or source Plasma data Potassium 3.5 - 5.1 mmoL/L Normal No Feb 03 informati 2016 8:50 [Moles/vo on in PM lume] in source Serum or data Plasma Sodium 136 - 145 mmoL/L Low No Feb 03 [Moles/vo informati 2017 8:50 lume] in on in PM Serum or source Plasma data Aspartate 15 - 37 U/L High No Feb 03 informati 2017 8:50 aminotran on in PM sferase source [Enzymati data c activity/ volume] in Serum or Plasma Alanine 12 - 78 U/L High No Feb 03 aminotran informati 2016 8:50 sferase on in PM [Enzymati source c data activity/ volume] in Serum or Plasma Protein 6.4 - 8.2 gm/dL High No Feb 03 [Mass/vol informati 2017 8:50 ume] in on in PM Serum or source Plasma data Fibrin D-dimer FEU [Mass/volume] in Platelet poor plasma Observa Value Referen Units Interpr Notes Date tion ce etation Range IS PATIENT ON ANTICOAGULANTS? N PTT RESULTS MUST BE CALLED IF PT ON HEPARIN!!! Y Fibrin 0 - 400 ng/mL High Feb 03 D-dimer alert NOTIFICAT 2016 8:50 FEU ION PM [Mass/vol RESULT ume] [...] INDICATIO Feb 03 Blood by informati N 2016 8:50 Coagulati on in PM on assay source INR data RANGETHER APY FOR DVT, PE, ATRIAL FIB; 2.0 - 3.0PROPHY LAXIS FOR VTETHERAP Y FOR MECHANICA L HEART 2.5 - 3.5VALVE; PREVENTIO N OF SYSTEMICE MBOLISM SECONDARY TO AMI Prothromb 9.4 - SECONDS High No Feb 03 in time 11.8 informati 2016 8:50 (PT) in on in PM Platelet [...] 2017 8:50 thrombpla D. PM stin time MIRIAMMIDIANE (aPTT) RJ in 02/03/17 Platelet 2138 poor AimeeRosibel plasma by yessy Coagulati on assay Lactate [Moles/volume] in Blood [...] 2.0 % Normal No Feb 03 informati 2017 8:50 leukocyte on in PM s in [...] 37.0 - % Normal No Feb 03 lauryn/100 80.0 informati 2016 8:50 leukocyte on in PM s in source Blood by data Automated count Hematocri 37.0 - % Normal No Feb 03 t [Volume 47.0 informati 2016 8:50 on in PM Fraction] source of Blood data Hemoglobi 12.2 - g/dL No 02/03/17 Feb 03 n 16.2 informati [id number] 2017 8:50 [Mass/vol on in previousl PM ume] in source y Blood data reported as: 12.7 # g/dL Lymphocyt 0.7 - 4.5 K/mm3 Normal No Feb 03 es informati 2017 8:50 [#/volume on in PM ] in [...] - 9.3 % Normal No Feb 03 /100 informati 2017 8:50 leukocyte on in PM s in [...] M/mm3 High No Feb 03 lauryn informati 2017 8:50 [#/volume on in PM ] in [...] 70 - 110 mg/dl High No Feb 03 [Mass/vol informati 2016 8:44 ume] in on in PM Capillary source [...] mg/dL Normal No Jan 31 .total informati 2017 7:00 [Mass/vol on in AM [...] 0 - 0.2 K/MM3 Normal No Jan 19 informati 2016 7:00 [#/volume on in AM ] in source Blood by data Automated count Basophils 0.1 - 2.0 % Normal No Oct 19 /100 informati 2017 7:00 leukocyte on in [...] 1.7 - 9.3 % Normal No Jan 19 /100 informati 2016 7:00 leukocyte on in [...] High No Jan 30 [Mass/vol informati 2016 ume] in on in 11:38 AM Capillary source blood by data Glucomete r Glucose [Mass/volume] in Capillary blood by Glucometer Observa Value Referen Units Interpr Notes Date ti ce etation Range Glucose 70 - 110 mg/dl Normal No Jan 30 [Mass/vol informati 2016 6:37 ume] in on in AM Capillary source blood by data Glucomete r Bacteria identified in Urine by Culture Observa Value Referen Units Interpr Notes Date tion ce etation Range Collected by nurse? Y Hold specimen in OE? N Bacteri YEAST No No No No Jan 30 a ISOLATE informa informa informa informa 2016 identif D. SENT tion in tion in tion in tion in 4:05 AM ied in TO source source source source Urine [facility] data data data data by FOR ID Culture ON 7. Bacteri Yeast No No No No Jan 30 a informa informa informa informa 2016 identif tion in tion in tion in tion in 4:05 AM ied in source source source source Urine data data data data by Culture Glucose [Mass/volume] in Capillary blood by Glucometer Observa Value Referen Units Interpr Notes Date ti ce etation Range Glucose 70 - 110 mg/dl Normal No Jan 29 [Mass/vol informati 2016 8:36 ume] in on in PM Capillary source blood by data Glucomete r Glucose [Mass/volume] in Capillary blood by Glucometer Observa Value Referen Units Interpr Notes Date ce etation Range Glucose 70 - 110 mg/dl Normal No Jan 29 [Mass/vol informati 2016 5:11 ume] in on in PM Capillary source blood by data Glucomete r Glucose [Mass/volume] in Capillary blood by Glucometer Observa Value Referen Units Interpr Notes Date ce etation Range Glucose 70 - 110 [...] 0.0 - 0.4 K/mm3 Normal No Jan 17 ls informati 2016 9:20 [#/volume on in AM ] in source Blood by data Automated count Eosinophi 0.1 - % Normal No Jan 17 ls/100 12.0 informati 2016 9:20 leukocyte on [...] 0.1 - 1.0 K/mm3 Normal No Jan 17 informati 2016 [...] - 50 % Low No Jan 29 inform2016 tion in 9:20 AM source data Blood 1+ No No No No Jan 29 smear informa informa informa informa 2016 finding tion in tion in tion in tion in 9:20 AM source source source source [Identi data data data data fier] in Blood by Light microsc opy Monocytes 2 - 9 % Normal No Jan 29 / informati [...] Neutrophi 42 - 76 % High No Oct 17 ls informati 2017 9:20 [#/volume on in AM ] in source Blood by data Automated count Cells No #CELLS No No Jan 17 Counted informati informati informati 2017 9:20 Total [#] on in on in [...] 7 - 18 mg/dL High No Jan 29 nitrogen informati 2017 9:20 [Mass/vol on in AM ume] in source Serum or data Plasma Calcium 8.5 - mg/dL Normal No Jan 17 [Mass/vol 10.1 informati 2017 9:20 ume] in [...] 59- ML/MIN Low REFERENCE Oct 17 RANGE: 2017 9:20 glomerula >60 AM [...] Normal No Jan 28 [Mass/vol informati 2016 4:57 ume] in on in PM Capillary source blood by data Glucomete r Glucose [Mass/volume] in Capillary blood by Glucometer Observa Value Referen Units Interpr Notes Date tion ce etation Range Glucose 70 - 110 mg/dl Normal No Jan 28 [Mass/vol informati 2016 ume] in on in 11:30 AM Capillary source blood by data Glucomete r Gas panel in Arterial blood Observa Value Referen Units Interpr Notes Date tion ce etation Range Base -2.4-+2.3 MMOL/L High [...] blood Carbon 35.0 - MMHG High Jan 16 dioxide 45.0 2016 8:00 [Partial CRITICAL AM pressure] RESULTS in Arterial RESU blood LTS CALLED TO: 01/28/17 0806 Sophia on,Gisella pH of 7.35 - MMOL/L Low No Jan 28 Arterial 7.45 informati 2016 8:00 blood on in AM source data Oxygen 80 - 100 MMHG Low No Jan 16 [Partial informati 2017 8:00 pressure] on in AM in source Arterial data blood Oxygen 90 - 100 % Normal No Jan 16 saturatio informati 2016 8:00 n.calcula on in [...] Date tion ce etation Range COMMENTS TO LARRY OPERATOR: 0600 Basophils 0 - 0.2 K/MM3 Normal No Jan 16 informati 2016 6:17 [#/volume on in AM ] in source Blood by data Automated count Basophils 0.1 - 2.0 % Normal No Jan 16 / informati 2016 6:17 leukocyte on in AM s in source Blood by data Automated count Eosinophi 0.0 - 0.4 K/mm3 Normal No Jan 16 ls informati 2016 6:17 [#/volume on in AM ] in source Blood by data Automated count Eosinophi 0.1 - % Normal No Jan 16 ls/100 12.0 informati 2017 6:17 leukocyte on in AM s in source Blood by data Automated count Granulocy 1.8 - 7.8 K/mm3 High No Jan 16 lauryn informati 2017 6:17 [#/volume on in AM ] in source Blood by data Automated count Granulocy 37.0 - % High No Jan 16 lauryn/100 80.0 informati 2017 6:17 leukocyte on in AM s in source Blood by data Automated count Hematocri 37.0 - % Low No Jan 16 t [Volume 47.0 informati 2016 6:17 on in AM Fraction] source of Blood data Hemoglobi 12.2 - g/dL Low No Jan 16 n 16.2 informati 2017 6:17 [Mass/vol on in AM ume] in source Blood data Lymphocyt 0.7 - 4.5 K/mm3 Normal No Jan 16 es informati 2017 6:17 [#/volume on in AM ] in source Unspecifi data ed specimen by Automated count Lymphocyt 10 - 50.0 % Low No Jan 28 es informati 2016 6:17 [#/volume on in AM ] in source Unspecifi data ed specimen by Automated count Erythrocy 27 - 31.2 pg Low No Jan 16 te mean informati 2017 6:17 corpuscul on in AM [...] 1.0 K/mm3 Normal No Jan 16 informati 2017 6:17 [#/volume on in AM ] in source Blood by data Automated count Monocytes 1.7 - 9.3 % Normal No Oct 16 /100 informati 2017 6:17 leukocyte on in AM s in source Blood by data Automated count Platelet 7.4 - fl Normal No Jan 16 mean 10.4 informati 2016 6:17 volume on in AM [Entitic source volume] data in Blood by Automated count Platelets 142 - 424 K/mm3 Normal No Oct 16 informati 2017 6:17 [#/volume on in AM ] in source Blood data Erythrocy 4.2 - 5.4 M/mm3 Low No Jan 16 lauryn informati 2016 6:17 [#/volume on in AM ] in source Amniotic data fluid Erythrocy 11.5 - % High No Jan 16 te 17.5 informati 2017 6:17 distribut on in AM ion width source [Entitic data volume] by Automated count Leukocyte 4.8 - K/MM3 High No Jan 16 s 10.8 informati 2017 6:17 [#/volume on in AM ] in source Blood data Comprehensive metabolic 2000 panel in Serum or Plasma Observa Value Referen Units Interpr Notes Date tion ce etation Range COMMENTS TO LARRY OPERATOR: 0600 Albumin/G 1.1 - 1.8 No Low No Jan 16 lobulin informati informati 2017 6:17 [Mass on in on in AM ratio] in source source Serum or data data Plasma Albumin 3.4 - 5.0 gm/dL Low No Jan 16 [Mass/vol informati 2017 6:17 ume] in on in AM Serum or source Plasma data Alkaline 46 - 116 U/L High No Jan 16 phosphata informati 2017 6:17 se on in AM [Enzymati source c data activity/ volume] in Serum or Plasma Bilirubin 0.2 - 1.0 mg/dL Normal No Jan 16 .total informati 2016 6:17 [Mass/vol on in AM ume] in source Serum or data Plasma Urea 7 - 18 mg/dL High No Jan 16 nitrogen informati 2017 6:17 [Mass/vol on in AM ume] in source Serum or data Plasma Calcium 8.5 - mg/dL Normal No Jan 16 [Mass/vol 10.1 informati 2017 6:17 ume] [...] Creatinin 0.55 - mg/dL High No Jan 16 e 1.02 informati 2017 6:17 [Mass/vol on in AM ume] in source Serum or data Plasma Creatinin 50 - 200 ML/MIN Low No Jan 16 e renal informati 2017 6:17 clearance on in AM source predicted data by Cockcroft -Gault formula Estimated 59- ML/MIN Low REFERENCE Oct 16 RANGE: 2017 6:17 glomerula >60 AM r ML/MIN/1. filtratio 73 SQUARE n rate METERSIf (GF this patient is -A merican, then multiply theresult by 1.210. Globulin 1.3 - 3.2 gm/dL High No Jan 16 [Mass/vol informati 2017 6:17 [...] mmoL/L Low No Jan 16 [Moles/vo informati 2017 6:17 [...] 70 - 110 mg/dl High No Oct 15 [Mass/vol informati 2016 ume] in on in 11:42 AM Capillary [...] mg/dL High No Jan 15 nitrogen informati 2017 5:35 [Mass/vol on in AM ume] in source Serum or data Plasma Calcium 8.5 - mg/dL Normal No Jan 15 [Mass/vol 10.1 informati 2017 5:35 ume] in on in AM Serum or source Plasma data Chloride 98 - 107 mmoL/L Normal No Jan 15 [Moles/vo informati 2017 5:35 lume] in on in AM Serum or source Plasma data Carbon 21.0 - mmoL/L High No Jan 15 dioxide, 32.0 informati 2017 5:35 total on in AM [Moles/vo source lume] in data Serum or Plasma Creatinin 0.55 - mg/dL High No Jan 15 e 1.02 informati 2017 5:35 [Mass/vol on in AM ume] in source Serum or data Plasma Creatinin 50 - 200 ML/MIN Normal No Jan 15 e renal informati 2017 5:35 clearance on in AM source predicted data by Cockcroft -Gault formula Estimated 59- ML/MIN Low REFERENCE Oct 15 RANGE: 2017 5:35 glomerula >60 AM r ML/MIN/1. filtratio 73 SQUARE n rate METERSIf (GF this patient is -A merican, then multiply theresult by 1.210. Glucose 74 - 106 mg/dL High No Jan 27 [Mass/vol inform2016 5:35 ume] in on in AM Serum or source Plasma data Potassium 3.5 - 5.1 mmoL/L Normal No Jan 272016 5:35 [Moles/vo on in AM lume] in source Serum or data Plasma Sodium 136 - 145 mmoL/L Normal No Jan 27 [Moles/vo inform2016 5:35 lume] in on in AM Serum or source Plasma data CBC W Auto Differential panel in Blood Observa Value Referen Units Interpr Notes Date tion ce etation Range Basophils 0 - 0.2 K/MM3 Normal No Jan 27 informati 2016 5:35 [#/volume on in AM ] in source Blood by data Automated count Basophils 0.1 - 2.0 % Normal No Jan 27 / informati 2016 5:35 leukocyte on in [...] Erythrocy 27 - 31.2 pg Low No Oct 15 te mean inform2016 5:35 corpuscul on in AM ar source hemoglobi data n [Entitic mass] Erythrocy 31.8 - g/dl Low No Jan 15 te mean 35.4 informati 2016 5:35 corpuscul [...] 70 - 110 mg/dl High No Oct 14 [Mass/vol informati 2017 5:14 ume] in on in PM Capillary [...] mg/dL Normal No Oct 14 .total informati 2016 1:15 [Mass/vol on in PM ume] in [...] 1.3 - 3.2 gm/dL High No Jan 14 [Mass/vol informati 2016 1:15 ume] in on in PM Serum source data Glucose 74 - 106 mg/dL High No Jan 14 [Mass/vol informati 2016 1:15 ume] in on in PM Serum or source Plasma data Potassium 3.5 - 5.1 mmoL/L Normal No Jan 262016 1:15 [Moles/vo on in PM lume] in [...] 78 U/L Normal No Jan 14 aminotran 2016 1:15 sferase on in PM [Enzymati [...] Low No Sep 15 lobulin informati informati 2016 [Mass on in on in 10:20 PM [...] 8.2 gm/dL Normal No Sep 15 [Mass/vol inform 2017 ume] in on in 10:20 PM Serum or source Plasma data CBC W Auto Differential panel in Blood Observa Value Referen Units Interpr Notes Date tion ce etation Range Basophils 0 - 0.2 K/MM3 Normal No Sep 15 inform2016 [#/volume on in 10:20 PM ] in source Blood by data Automated count Basophils 0.1 - 2.0 % Normal No Sep 15 /100 inform 2017 leukocyte on in 10:20 PM s in source Blood by data Automated count Eosinophi 0.0 - 0.4 K/mm3 Normal No Sep 15 ls inform 2017 [#/volume on in 10:20 PM [...] No Sep 15 te mean 97.8 informati 2016 corpuscul on in 10:20 PM ar volume source [Entitic data volume] by Automated count Monocytes 0.1 - 1.0 K/mm3 Normal No Sep 15 informati 2016 [...] - 5.1 mmoL/L Normal No Sep 8 inform2016 7:06 [Moles/vo on in AM lume] in [...] - 0.2 K/MM3 Normal No Sep 8 inform2016 7:06 [#/volume on in AM ] in [...] No Sep 8 te mean 97.8 informati 2017 7:06 corpuscul on in AM ar volume source [Entitic data volume] by Automated count Monocytes 0.1 - 1.0 K/mm3 Normal No Sep 8 informati 2017 7:06 [#/volume on in AM ] in source Blood by data Automated count Monocytes 1.7 - 9.3 % Normal No Sep 8 /100 informati 2017 7:06 leukocyte on in AM s in source Blood by data Automated count Platelet 7.4 - fl Low No Sep 8 mean 10.4 informati 2017 7:06 volume on in AM [Entitic source volume] data in Blood by Automated count Platelets 142 - 424 K/mm3 Normal No Sep 8 informati 2017 7:06 [#/volume on in AM ] in source Blood data Erythrocy 4.2 - 5.4 M/mm3 Normal No Sep 8 lauryn informati 2017 7:06 [#/volume on in AM ] in source Amniotic data fluid Erythrocy 11.5 - % Normal No Sep 8 te 17.5 informati 2017 7:06 distribut on in AM ion width [...] 100 pg/mL High No Dec 04 tic ati 2016 1:25 peptide B on in PM [...] % Normal No Dec 04 es informati 2017 [...] 424 K/mm3 Normal No Dec 04 informati 2016 [...] mg/dL Normal No Marlon 5 [Mass/vol informati 2016 ume] in on in 11:34 AM Serum or source Plasma data Potassium 3.5 - 5.1 mmoL/L Normal No Sep 17 inform2016 [Moles/vo on in 11:34 AM lume] [...]
--- OUTSIDE RECORDS SUMMARY | 2017-02-17 03:54 | External Medical Summary Rpt ---
[...] Date tion ce etation Range COMMENTS TO WALLPAPER HANGER: 0600 Basophils 0 - 0.2 K/MM3 Normal [...] Date tion ce etation Range COMMENTS TO WALLPAPER HANGER: 0600 Albumin/G 1.1 - 1.8 No Low [...]
[2017-02-17 04:17] LABS: HEMOGLOBIN 10.8 g/dL (12.2-16.2); LYMPH # 4.7 K/mm3 (0.7-4.5); LYMPH % 33.1 % (10-50.0); URINE BILIRUBIN - DIPSTICK NEGATIVE (NEG); URINE BLOOD NEGATIVE (NEG)
--- NOTE | 2017-02-17 04:24 | Emergency Room Report ---
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 STATES PT'S SPOUSE YESTERDAY. 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 N Clinical Suspician of Infection? N Mental Status: 3 - Acutely Altered Sepsis Risk:Severe Sepsis Risk Have you (or family members/close friends) recently traveled outside the [place]? N If Yes, where/when: Have you had exposure to infectious disease within the past month? N TB? Other? Specify: Source patient, RN notes reviewed, EMS, old records Exam Limitations clinical condition Comment pt with recent of her and is upset and yelling and being uncooperative - but also aware of place and myself and had no chest pain Cardiac Chest Pain Chest pain indicative of cardiac No Timing/Duration this evening Severity moderate ALLERGIES Coded Allergies: Sulfa (Sulfonamide Antibiotics) (Intermediate, I-HIVES 07/17/16) Home Medications Active Scripts Apixaban (Eliquis) 2.5 MG PO BID #60 TAB Ref 1 Prov: 07/13/16 ROPINIROLE HCL (Requip) 4 MG PO QHS #30 TAB Ref 1 Prov: 02/01/17 HYDROCODONE/ACETAMINOPHEN (LORTAB 5-325 (generic)) 1 TAB PO TIDP PRN PAIN #60 TAB Prov: 02/01/17 Gabapentin (Neurontin) 200 MG PO TID #120 CAPSULE Ref 1 Prov: 02/01/17 Quetiapine Fumarate (Seroquel Xr) 200 MG PO QHS #30 Ref 1 Prov: 02/01/17 TRIAMCINOLONE ACET 0.1% (Triamcinolone Acetonide) 1 SERGO TP BID 7 Days Prov: 07/28/16 Amoxicillin/Potassium Clav (Augmentin 875-125 Tablet) 1 EACH PO BID #20 TAB Prov: 12/30/16 Reported Medications Metformin HCL (Metformin) 500 MG PO BID #60 TAB Paroxetine (Paxil) 40 MG PO QHS Conjugated Estrogens (Premarin 0.3MG. Tablet) 0.3 MG PO DAILY LISINOPRIL (Lisinopril) 2.5 MG PO DAILY Levothyroxine Sodium (Levothyroxine) 0.05 MG PO DAILY DILTIAZEM HCL (Cartia Xt) 240 MG PO DAILY #30 CAP Albuterol Sulfate (Ventolin Hfa) 2 PUFF IH QIDP Albuterol-Ipratropium (Duoneb 0.5 MG-3 MG/3 Ml Soln) 3 ML IN TID Sucralfate (Carafate) 1 GM PO TID Lansoprazole (Lansoprazole) 30 MG PO DAILY Device (Oxygen (Concentrator)) 1 UNIT XX UD #2 Montelukast Sodium (Singulair) 10 MG PO QHS MAGNESIUM OXIDE (Magnesium Oxide) 400 MG PO QHS Atorvastatin Calcium (Atorvastatin) 80 MG PO QHS History Medical History General CAD? No Angina: No ME: No Hypertension? Yes Hyperlipidemia? Yes CHF? Yes DVT? No PE? No COPD? Yes Asthma? Yes Anemia? No GERD? No Gastric ulcers? No GI Bleed? No Hernia? No Thyroid Problems? Yes Hypothyroidism? Yes CVA? No Seizures? Yes Diabetes? Yes Insulin Dependent: No Insulin Pump: No Home FSBS? No Renal Insuffiency? Yes End Stage Renal Disease? No UTI? Yes Stones? No BPH? No GB Disease: No Nephritic Syndrome? No Asplenia? No Hepatitis? No Sickle Cell Disease? No Arthritis? Yes Migraines? No Cataracts? Yes Glaucoma? No MRSA? No HIV? No TB? No Anxiety? Yes Depression? Yes Cancer? Yes Site: LUNG, SKIN CA More? Yes Additional hx: CONFEDERATED SALISH, AFIB Immunization Hx DT/Tetanus 10/15/12 Flu 2017-18FSN Pneumonia Received In Past Surgical Hx Previous Surgery?Y L-LUMPECTOMY X2 TEETH EXTRACTED, UPPER TUMOR FROM R WRIST Tubal Ligation R-UPPER AND LOWER LOBECTO HYSTERECTOMY SKIN CANCER OF NOSE BI-LAT CATARACTS RIGHT ANKLE Family History Family Hx Diabetes Yes CAD Yes Hypertension Yes Hyperlipidemia Yes Cancer Yes TB No Social History Smoking Hx Smoker: Unknown if Ever Smoked Tobacco: No Type Cigarettes Packs/day < 1 Pack Alcohol Alcohol: No Drugs none Review of Systems All Other Systems Reviewed and Negative Constitutional denies fever Eyes denies drainage ENT denies: ear discharge, epistaxis, throat pain. Respiratory denies orthopnea Cardiovascular denies chest pain, denies palpitations, denies syncope Gastrointestinal denies abdominal pain, denies diarrhea, denies vomiting Genitourinary denies: dysuria, frequency, hesitancy, hematuria. Musculoskeletal denies back pain, denies joint pain, denies neck pain Skin denies rash Psychiatric/Neurological denies headache, denies seizure Physical Exam Vital Signs Vital Signs Date Time Temp Pulse Resp B/P Pulse O2 O2 Flow FiO2 Ox Delivery Rate 02/17 0736 97.5 83 18 110/88 95 3 02/17 0630 83 18 95 3 02/17 0555 117 18 107/85 96 3 02/17 0519 104 22 97 3 02/17 0449 97.5 105 22 125/103 97 3 02/17 0418 81 16 106/67 93 3 02/17 0301 89 32 88 - WBC >12,000 or <4,000 or 10% bands? 2 or more SIRS Criteria Met? B/P:110/88 MAP:80 Creatinine >2.0? UA output<0.5ml/kg/hr for 2 hrs? Platelet count >100,000? Lactate >2.0mmol/1? INR >1.2 or PTT > than 60 sec? Evidence of Organ Dysfunction? Provider documented clinical suspician of infection? N Sepsis Criteria Count: 0 Sepsis Risk: Severe Sepsis Risk General Appearance no apparent distress Eye Exam - bilateral eye PERRL, bilateral eye EOMI Ear, Nose, Throat normal ENT inspection Neck supple Respiratory Status No: respiratory distress. Lung Sounds bilateral: lungs clear. Cardiovascular regular rate/rhythm, systolic murmur Peripheral Pulses Pulses normal Yes Gastrointestinal soft Extremities pedal edema Strength 4 Upper Ext (L), 4 Upper Ext (R), 4 Lower Ext (L), 4 Lower Ext (R) Neurologic alert, reference investigator II-XII nml as tested Reflexes Reflexes normal No Mental status yelling and uncooperative but aware Skin abrasions Medical Decision Making LABS/Meds/Orders Pt receiving controlled substance in ED? No Results/Orders Laboratory Tests 02/17/17 0400: Opiates Screen POSITIVE H, Urine Methadone Screen NEGATIVE, Barbiturates NEGATIVE, Phencyclidine Screen NEGATIVE, Amphetamines Screen NEGATIVE, Benzodiazepines Screen NEGATIVE, Cocaine Screen NEGATIVE, Marijuana (THC) Screen NEGATIVE 02/17/17 0400: Sodium 136, Potassium 4.6, Chloride 98, Carbon Dioxide 24, BUN 54 H, Creatinine 1.5 H, Estimated Creat Clear 60, Estimated GFR (MDRD) 35 L, Glucose 117 H, Calcium 9.4, Total Bilirubin 0.5, AST 37, ALT 52, Alkaline Phosphatase 134 H, Total Protein 7.3, Albumin 3.0 L, Globulin 4.3 H, Albumin/Globulin Ratio 0.7 L, WBC 14.1 H, RBC 4.78, Hgb 10.8 L, Hct 35.9 L, MCV 75.0 L, RDW 18.4 H, Plt Count 457 H, MPV 7.7, Gran % 56.0, Gran # 7.9 H, Lymphocytes % 33.1, Monocytes % 8.0, Eosinophils % 2.2, Basophils % 0.7, Lymphocytes # 4.7 H, Monocytes # 1.1 H, Eosinophils # 0.3, Basophils # 0.1, PUBS MCHC 30.0 L, MCH 22.5 L, Salicylates 2.8, Acetaminophen 0 L, Alcohols 0, Urine Color YELLOW, Urine Appearance CLEAR, Urine pH 6.0, Ur Specific Jenner 1.025, Urine Protein 1 + H, Urine Ketones NEGATIVE, Urine Blood NEGATIVE, Urine Nitrate NEGATIVE, Urine Bilirubin NEGATIVE, Urine Urobilinogen 0.2, Ur Leukocyte Esterase NEGATIVE , Urine WBC 3-5, Ur Squamous Epith Cells 5-10, Amorphous Sediment 2+, Urine Bacteria 1+, Urine Glucose NEGATIVE Current Medication Orders Sig/Curry Start time Last Medication Dose Route Stop Time Status Admin Haloperidol Lactate 2 MG ONCE ONE 02/17 530 DC 02/17 IM 02/17 531 05 Haloperidol Lactate 0 .STK-MED ONE 02/18 504 DC .ROUTE Haloperidol Lactate 2 MG ONCE ONE 02/17 445 DC 02/17 IM 02/17 446 0448 Haloperidol Lactate 2 MG ONCE ONE 02/17 430 DC 02/17 IM 02/17 431 034 Sodium Chloride 10 ML PRN PRN 02/17 430 AC IV 02/18 421 Haloperidol Lactate 0 .STK-MED ONE 02/18 344 DC .ROUTE Orders Procedure Date/time Status RESTRAINTS-INITIATE 02/17 606 Active MD NOTIFY RESTRAINTS APPLIED 02/17 606 Active IV SALINE LOCK 02/17 422 Active URINARY CATHETER INSERT 02/17 422 Active SALICYLATE 02/17 353 Complete CBC WITH AUTO DIFF 02/17 353 Complete CHEM 12 PROFILE 02/17 353 Complete ALCOHOL 02/17 353 Complete Acetaminophen 02/17 353 Complete URINALYSIS/COMPLETE 02/17 351 Complete DRUG ABUSE SCREEN (TRIAGE) 02/17 351 Complete Departure Departure Time of Disposition 0814 Disposition DC Home or Self Care(routine) Clinical Impression Primary Impression: Anxiety Secondary Impressions: Renal insufficiency Condition STABLE Patient Instructions DI for Anxiety -- Adult Additional Instructions fluids and recheck renal function this week Discharge Counseling Counseled pt/family regarding diagnosis, test results, medications/RX, follow up needs ED Critical Care Critical Care No at 0822
[2017-02-17 04:29] LABS: AMPHETAMINES/METAMPHETAMINES NEGATIVE ng/mL (<1000)
[2017-02-17 08:36] VITALS: BP 112/79
== END 2017-02-17 08:37 | disposition home or self-care (01) ==
LOC: ER 02:58
PROVIDERS: Emergency Medicine
DX: F41.1 Generalized anxiety disorder (principal); F43.0 Acute stress reaction; N28.9 Disorder of kidney and ureter, unspecified; I48.2 Chronic atrial fibrillation; J44.9 Chronic obstructive pulmonary disease, unspecified; I10 Essential (primary) hypertension; E11.9 Type 2 diabetes mellitus without complications; Z79.84 Long term (current) use of oral hypoglycemic drugs; Z88.2 Allergy status to sulfonamides; E03.9 Hypothyroidism, unspecified; Z79.899 Other long term (current) drug therapy

== ENCOUNTER → 2017-02-25 | Outpatient (CLI) | payer MEDICARE, MEDICAID ==
[2017-02-25 19:59] LABS: BUN 49 mg/dL (7-18)
[2017-02-25 20:03] LABS: GFR (ESTIMATED) 38 ML/MIN (59-)
== END ==
LOC: LAB 15:05
PROVIDERS: Internal Medicine Adolescent Medicine
DX: F01.51 Vascular dementia, unspecified severity, with behavioral disturbance (principal); Z79.899 Other long term (current) drug therapy

== ENCOUNTER 2017-03-03 00:33 | Observation (INO) | payer MEDICARE, MEDICAID ==
[~2017-03-03] VITALS: Ht 170.2 cm; Wt 99.6 kg
[2017-03-03] VITALS (10 sets, daily range): BP systolic 142–158; BP diastolic 79–102
--- OUTSIDE RECORDS SUMMARY | 2017-03-03 00:51 | External Medical Summary Rpt | Continuity of Care Document ---
Author Author Organization Address Unknown Phone Unavailable Care Team Providers Care Sap Plant Maintenance Consultant Name Role Phone , Unavailable Unavailable EMS Current Medications Section EMS Allergies and Adverse Reactions EMS Past Medical History Medications Administered Section EMS Procedures Performed EMS Vital Signs EMS Patient Care Report Narrative EMS was toned to [facility] in reference to a 66 year old female who had possibly overdosed. Upon arrival EMS was met by [facility] officer who stated that he had been called also. Upon entry to the facility [facility] staff led EMS to patient who was laying across a bed screaming. Two staff members were attempting to hold the patient on the bed. EMS was given report by [facility] staff who stated that the patient's yesterday and that the patient's family had taken her home with them. She had been prescribed ativan and was given enough medication to last her until tomorrow. Patient's family brought patient back to the facility and stated that they could not control her and that she was 'out of her head". Patient did not have her medication with her when family returned her to [facility]. Upon being returned to the facility she was agitated and combative. Staff stated that patient told them that she had been given pills by her family. Family was contacted and stated that the patient was given tylenol. Staff was asked about the patient's history and was told that she is normally ambulatory and responsive. Patient has a history of COPD, Type II DM insulin dependent, A- fib and GERD. Upon exam of the patient by EMS she was alert and breathing well. Patient was asked to sit up on the bed and she did. She was assisted with moving to the EC cot and was secured with all straps. Patient continued to scream and thrash about but not as much as before. EMS advised patient not to thrash about to protect her safety and prevent the cot from tipping over and she stopped. Patient was loaded into the EC unit and V/S were attempted. Patient continued to scream and thrash about. Obtaining V/S was very difficult. IV access was established in the left AC with a 20 gauge IV catheter and a saline lock was placed. FSBS was 169. Patient continued to scream and thrash about in route to [facility]. Patient continued to be responsive and obey commands. Patient report was called to the ER while in route and patient care was transferred to [facility] without change. Ahsan Reddy [id number].
--- OUTSIDE RECORDS SUMMARY | 2017-03-03 00:51 | External Medical Summary Rpt | Continuity of Care Document ---
Author Author Organization Address Unknown Phone Unavailable Care Team Providers Care Jelly Filter Tender Name Role Phone , Unavailable Unavailable EMS Current Medications Section EMS Allergies and Adverse Reactions EMS Past Medical History Medications Administered Section EMS Procedures Performed EMS Vital Signs EMS Patient Care Report Narrative EMS was toned to [facility] in reference to a 66 year old female who had possibly overdosed. Upon arrival EMS was met by [facility] officer who stated that he had been called also. Upon entry to the facility [facility] staff led EMS to patient who was laying across a bed screaming. Two staff members were attempting to hold the patient on the bed. EMS was given report by [facility] staff who stated that the patient's yesterday [...] with her when family returned her to [facility]. Upon being returned to the facility she [...] scream and thrash about in route to [facility]. Patient continued to be responsive and obey commands. Patient report was called to the ER while in route and patient care was transferred to [facility] without change. Ahsan Reddy [id number].
--- OUTSIDE RECORDS SUMMARY | 2017-03-03 00:51 | External Medical Summary Rpt | Continuity of Care Document ---
Author Author Organization Address Unknown Phone Unavailable Care Team Providers Care Frame Trimmer Name Role Phone , Unavailable Unavailable EMS Current Medications Section EMS Allergies and Adverse Reactions EMS Past Medical History Medications Administered Section EMS Procedures Performed EMS Vital Signs EMS Patient Care Report Narrative EMS was toned to [facility] in reference to a 66 year old female who had possibly overdosed. Upon arrival EMS was met by [facility] officer who stated that he had been called also. Upon entry to the facility [facility] staff led EMS to patient who was laying across a bed screaming. Two staff members were attempting to hold the patient on the bed. EMS was given report by [facility] staff who stated that the patient's yesterday [...] with her when family returned her to [facility]. Upon being returned to the facility she [...] scream and thrash about in route to [facility]. Patient continued to be responsive and obey commands. Patient report was called to the ER while in route and patient care was transferred to [facility] without change. Ahsan Reddy [id number].
--- OUTSIDE RECORDS SUMMARY | 2017-03-03 00:51 | External Medical Summary Rpt | Continuity of Care Document ---
Author Author Organization Address Unknown Phone Unavailable Care Team Providers Care International Organizer Name Role Phone , Unavailable Unavailable EMS Current Medications Section EMS Allergies and Adverse Reactions EMS Past Medical History Medications Administered Section EMS Procedures Performed EMS Vital Signs EMS Patient Care Report Narrative EMS was toned to [facility] in reference to a 66 year old female who had possibly overdosed. Upon arrival EMS was met by [facility] officer who stated that he had been called also. Upon entry to the facility [facility] staff led EMS to patient who was laying across a bed screaming. Two staff members were attempting to hold the patient on the bed. EMS was given report by [facility] staff who stated that the patient's yesterday [...] with her when family returned her to [facility]. Upon being returned to the facility she [...] scream and thrash about in route to [facility]. Patient continued to be responsive and obey commands. Patient report was called to the ER while in route and patient care was transferred to [facility] without change. Ahsan Reddy [id number].
--- NOTE | 2017-03-03 01:03 | Emergency Room Report ---
History of Present Illness Time Seen by MD Escobar Presenting Problem in Triage Pt arrived:Wheelchair Presenting Problem:HEARTBURN Onset of symptoms date/time:03/03/17 or onset unknown for: Treatment Prior to Arrival: [employer]OR Provided by: Sepsis Risk Assessment: Temp: 97.8 B/P: 149/89 MAP: Pulse: 103 Resp: 18 Recent fever? N Clinical Suspician of Infection? N Mental Status: 1 - Regular (Normal Baseline) Sepsis Risk:Low Sepsis Risk Have you (or family members/close friends) recently traveled outside the [place]? N If Yes, where/when: Have you had exposure to infectious disease within the past month? N TB? Other? Specify: Source patient, RN notes reviewed, family, old records Exam Limitations no limitations Comment pt with feeling of indigestion and presents with rapid a fib Cardiac Chest Pain Chest pain indicative of cardiac No Timing/Duration this evening Severity moderate ALLERGIES Coded Allergies: Sulfa (Sulfonamide Antibiotics) (Intermediate, I-HIVES 07/17/16) Home Medications Active Scripts Apixaban (Eliquis) 2.5 MG PO BID #60 TAB Ref 1 Prov: 07/13/16 ROPINIROLE HCL (Requip) 4 MG PO QHS #30 TAB Ref 1 Prov: 02/01/17 HYDROCODONE/ACETAMINOPHEN (LORTAB 5-325 (generic)) 1 TAB PO TIDP PRN PAIN #60 TAB Prov: 02/01/17 Gabapentin (Neurontin) 200 MG PO TID #120 CAPSULE Ref 1 Prov: 02/01/17 Quetiapine Fumarate (Seroquel Xr) 200 MG PO QHS #30 Ref 1 Prov: 02/01/17 TRIAMCINOLONE ACET 0.1% (Triamcinolone Acetonide) 1 SERGO TP BID 7 Days Prov: 07/28/16 Reported Medications Metformin HCL (Metformin) 500 MG PO BID #60 TAB Paroxetine (Paxil) 40 MG PO QHS Conjugated Estrogens (Premarin 0.3MG. Tablet) 0.3 MG PO DAILY LISINOPRIL (Lisinopril) 2.5 MG PO DAILY Levothyroxine Sodium (Levothyroxine) 0.05 MG PO DAILY DILTIAZEM HCL (Cartia Xt) 240 MG PO DAILY #30 CAP Albuterol Sulfate (Ventolin Hfa) 2 PUFF IH QIDP Albuterol-Ipratropium (Duoneb 0.5 MG-3 MG/3 Ml Soln) 3 ML IN TID Sucralfate (Carafate) 1 GM PO TID Lansoprazole (Lansoprazole) 30 MG PO DAILY Device (Oxygen (Concentrator)) 1 UNIT XX UD #2 Montelukast Sodium (Singulair) 10 MG PO QHS MAGNESIUM OXIDE (Magnesium Oxide) 400 MG PO QHS Atorvastatin Calcium (Atorvastatin) 80 MG PO QHS History Medical History General CAD? No Angina: No AR: No Hypertension? Yes Hyperlipidemia? Yes CHF? Yes DVT? No PE? No COPD? Yes Asthma? Yes Anemia? No GERD? No Gastric ulcers? No GI Bleed? No Hernia? No Thyroid Problems? Yes Hypothyroidism? Yes CVA? No Seizures? Yes Diabetes? Yes Insulin Dependent: No Insulin Pump: No Home FSBS? No Renal Insuffiency? Yes End Stage Renal Disease? No UTI? Yes Stones? No BPH? No GB Disease: No Nephritic Syndrome? No Asplenia? No Hepatitis? No Sickle Cell Disease? No Arthritis? Yes Migraines? No Cataracts? Yes Glaucoma? No MRSA? No HIV? No TB? No Anxiety? Yes Depression? Yes Cancer? Yes Site: LUNG, SKIN CA More? Yes Additional hx: LITTLE SHELL TRIBE, AFIB Immunization Hx DT/Tetanus 10/15/12 Flu 2017-18FSN Pneumonia Received In Past Surgical Hx Previous Surgery?Y L-LUMPECTOMY X2 TEETH EXTRACTED, UPPER TUMOR FROM R WRIST Tubal Ligation R-UPPER AND LOWER LOBECTO HYSTERECTOMY SKIN CANCER OF NOSE BI-LAT CATARACTS RIGHT ANKLE Family History Family Hx Diabetes Yes CAD Yes Hypertension Yes Hyperlipidemia Yes Cancer Yes TB No Social History Smoking Hx Smoker: Current Every Day Smoker Tobacco: Yes Type Cigarettes Packs/day < 1 Pack Alcohol Alcohol: No Drugs none Review of Systems All Other Systems Reviewed and Negative Constitutional denies fever Eyes denies drainage ENT denies: ear discharge, epistaxis, throat pain. Respiratory see HPI, denies cough, shortness of breath, denies wheezing Cardiovascular see HPI, chest pain, palpitations, denies syncope Gastrointestinal denies abdominal pain, denies diarrhea, denies vomiting Genitourinary denies: dysuria, frequency, hesitancy, hematuria. Musculoskeletal denies back pain, denies joint swelling, denies neck pain Skin denies rash Psychiatric/Neurological denies headache, denies seizure Physical Exam Vital Signs Vital Signs Date Time Temp Pulse Resp B/P Pulse O2 O2 Flow FiO2 Ox Delivery Rate 03/03 0246 127 18 90/62 99 03/03 0226 97.8 128 18 112/62 99 03/03 0147 142 18 97/71 99 03/03 0137 134 18 96/74 100 03/03 0121 150 18 131/72 100 03/03 0049 97.8 103 18 149/89 98 03/03 0039 103 18 98 - WBC >12,000 or <4,000 or 10% bands? 2 or more SIRS Criteria Met? B/P: MAP: Creatinine >2.0? UA output<0.5ml/kg/hr for 2 hrs? Platelet count >100,000? Lactate >2.0mmol/1? INR >1.2 or PTT > than 60 sec? Evidence of Organ Dysfunction? Provider documented clinical suspician of infection? N Sepsis Criteria Count: 1 Sepsis Risk: Low Sepsis Risk General Appearance no apparent distress Eye Exam - bilateral eye PERRL, bilateral eye EOMI Ear, Nose, Throat normal ENT inspection Neck supple Respiratory Status No: respiratory distress. Lung Sounds bilateral: decreased breath sounds. 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 No Results/Orders Laboratory Tests 03/03/1746: TSH 6.91 H, Thyroxine (T4) 6.5 03/03/1746: Sodium 132 L, Potassium 4.7, Chloride 100, Carbon Dioxide 28, BUN 28 H, Creatinine 1.1 H, Estimated Creat Clear 74, Estimated GFR (MDRD) 50 L, Glucose 105, Calcium 8.8, Total Bilirubin 0.4, AST 36, ALT 83 H, Alkaline Phosphatase 159 H, Creatine Kinase 47, CK-MB (CK-2) Rel Index 5.1 H, CK and CKMB Interp 2.4, Troponin I 0.06, B-Natriuretic Peptide 481 H, Total Protein 6.9, Albumin 2.8 L, Globulin 4.1 H, Albumin/Globulin Ratio 0.7 L, WBC 10.6, RBC 4.81, Hgb 10.8 L, Hct 36.7 L, MCV 76.3 L, RDW 18.6 H, Plt Count 295, MPV 7.3 L, Gran % 57.5, Gran # 6.1, Lymphocytes % 31.6, Monocytes % 8.1, Eosinophils % 2.4, Basophils % 0.4, Lymphocytes # 3.3, Monocytes # 0.9, Eosinophils # 0.3, Basophils # 0.1, PUBS MCHC 29.3 L, MCH 22.4 L Current Medication Orders Sig/Curry Start time Last Medication Dose Route Stop Time Status Admin Digoxin 0.125 MG ONCE ONE 03/03 315 DC 03/03 IV 03/03 316 031 Digoxin 0 .STK-MED ONE 03/03 311 DC .ROUTE Diltiazem HCl 10 MG ONCE ONE 03/03 115 DC 03/03 IV 03/03 116 011 Diltiazem HCl 100 MG ONCE ONE 03/03 115 AC 03/03 Sodium Chloride 100 ML IV 03/03 1114 0115 Diltiazem HCl 0 .STK-MED ONE 03/03 112 DC IV Sodium Chloride 100 ML .STK-MED ONE 03/03 112 DC IV Diltiazem HCl 0 .STK-MED ONE 03/03 111 DC IV Aspirin 324 MG ONCE ONE 03/03 100 DC 03/03 PO 03/03 101 0058 Sodium Chloride 10 ML PRN PRN 03/03 100 AC IV 03/04 0047 Aspirin 0 .STK-MED ONE 03/035 DC .ROUTE Orders Procedure Date/time Status Decision to admit 03/03 312 Active THYROID STIMULATING HORMONE 03/03 103 Complete THYROXINE (T4) 03/03 103 Complete ELECTROCARDIOGRAM REQUEST 03/03 47 Active CHEST-PORTABLE 03/03 47 Active IV SALINE LOCK 03/03 47 Active CBC WITH AUTO DIFF 03/03 47 Complete CARDIAC ENZYMES 03/03 47 Complete CHEM 12 PROFILE 03/03 47 Complete BRAIN NATRIURETIC PEPTIDE 03/03 47 Complete 12 LEAD EKG-RUFINO (INITIAL) 03/03 UNK Active 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 ST/Twave chgs XRAY/CT/US XRAY/CT/US XRAY chest XR interpretation by reviewed by me Xray Results abnormal (cm) Departure Departure Time of Disposition 0323 Disposition Still a Patient Clinical Impression Primary Impression: Atrial fibrillation with rapid ventricular response Secondary Impressions: Renal insufficiency Condition STABLE Referrals Abhishek Breaux MD (Family) [place] [address]
[2017-03-03 01:04] LABS: HEMOGLOBIN 10.8 g/dL (12.2-16.2); LYMPH # 3.3 K/mm3 (0.7-4.5); LYMPH % 31.6 % (10-50.0)
--- OUTSIDE RECORDS SUMMARY | 2017-03-03 01:06 | External Medical Summary Rpt | CCD ---
Author Author , DWIGHT QUINTANILLA Address Unknown Phone [email or web address] Care Team Providers Care Wastewater Manager Name Role Phone Leanne Shaikh MD, Unavailable Unavailable Leanne Blanca MD, Unavailable Unavailable Eduin Blanca MD Purpose Continuity of Care Document - 05-28-2012 through 2016 Problems Code Diagnosis DOS Provider Status 162.9 276.8 Hypokalemia [facility] 416.9 [facility] [place] [id number] Gast[facility] 585.9 [id number] [facility] [place] [id number] E66.9 OBESITY, UNSPECIFIED E86.0 DEHYDRATION F41.9 ANXIETY DISORDER, UNSPECIFIED H65.03 ACUTE SEROUS OTITIS MEDIA, BILATERAL H81.10 BENIGN PAROXYSMAL VERTIGO, UNSPECIFIED EAR I48.91 UNSPECIFIED ATRIAL FIBRILLATIO N I50.9 HEART FAILURE, UNSPECIFIED I95.9 HYPOTENSION , UNSPECIFIED J18.9 PNEUMONIA, UNSPECIFIED ORGANISM J20.9 ACUTE BRONCHITIS, UNSPECIFIED J39.8 OTHER SPECIFIED DISEASES OF UPPER RESPIRATORY TRACT J40 BRONCHITIS, NOT SPECIFIED ACUTE OR CHRONIC J44.1 CHRONIC OBSTRUCTIVE PULMONARY DISEASE W (ACUTE) EXACERBATIO N J44.9 CHRONIC OBSTRUCTIVE PULMONARY DISEASE, UNSPECIFIED J90 PLEURAL EFFUSION, NOT ELSEWHERE CLASSIFIED J96.90 RESPIRATORY FAILURE, UNSP, UNSP W HYPOXIA OR HYPERCAPNIA M10.9 GOUT, UNSPECIFIED M89.8X1 OTHER SPECIFIED DISORDERS OF BONE, SHOULDER N28.9 DISORDER OF KIDNEY AND URETER, UNSPECIFIED N39.0 URINARY TRACT INFECTION, SITE NOT SPECIFIED R06.00 DYSPNEA, UNSPECIFIED R10.9 UNSPECIFIED ABDOMINAL PAIN R11.0 NAUSEA R42 DIZZINESS AND GIDDINESS R53.1 WEAKNESS R55 SYNCOPE AND COLLAPSE R74.8 ABNORMAL LEVELS OF OTHER SERUM ENZYMES R79.89 OTHER SPECIFIED ABNORMAL FINDINGS OF BLOOD CHEMISTRY S81.819A LACERATION WITHOUT FOREIGN BODY, UNSP LOWER LEG, INIT ENCNTR S82.891A OTH FRACTURE OF RIGHT LOWER LEG, INIT FOR CLOS FX S90.32XA CONTUSION OF LEFT FOOT, INITIAL ENCOUNTER S92.912A UNSP FRACTURE OF LEFT TOE(S), INIT FOR CLOS FX Z71.6 TOBACCO ABUSE COUNSELING Z72.0 TOBACCO USE Allergies, Adverse Reactions, Alerts Type Drug Allergy [...] RO 07 -0 SE 90 6- Lo W[place] 07 20 ng DE 32 13 er [...] 5 ti MG ve TA BL ET [place] 11 05 1 No RA 52 -0 [...] TF 07 -0 OR 90 5- Lo [place] 17 20 ng N 22 13 er [...] RO 40 -1 SE 96 4- Lo [place] 10 20 ng DE 20 13 er [...] TF 07 -1 OR 90 4- Lo [place] 17 20 ng N 22 13 er [...] Order Detail nces retati t Range on Serum or plasma thyroid stimulating horm (02-25-2017 15:06) Serum 02-25-2 = 2.45 0.358-3 complet or 017 uIU/ml .740 ed plasma 15:06 thyroid stimula ting horm Comprehensive metabolic panel (02-25-2017 15:06) Protein 02-25-2 = 6.2 6.4-8.2 complet total 017 gm/dL ed ser/yuli 15:06 s ALT = 149 12-78 complet (SGPT) 017 U/L ed ser/yuli 15:06 s Serum 2 = 159 15-37 complet or 017 U/L ed plasma 15:06 asparta te aminotr ansfera Serum = 134 136-145 complet sodium 017 mmoL/L ed measure 15:06 ment Serum 2 = 5.8 3.5-5.1 complet potassi 017 mmoL/L ed um 15:06 measure ment Serum 2 = 114 74-106 complet or 017 mg/dL ed plasma 15:06 glucose measure ment (mas Serum 2 = 3.2 1.3-3.2 complet globuli 017 gm/dL ed n 15:06 measure ment (mass/v olume) Estimat 2 = 38 59- complet ed 017 ML/MIN ed glomeru 15:06 lar filtrat ion rate (GF Comment: REFERENCE RANGE: >60 ML/MIN/1.73 SQUARE METERS Comment: If this patient is -[place]ames[place], then multiply the Comment: result by 1.210. Serum 02-25-2 = 1.4 0.55-1. complet or 017 mg/dL 02 ed plasma 15:06 creatin ine measure ment ( Carbon 2 = 22 21.0-32 complet dioxide 017 mmoL/L .0 ed 15:06 measure ment Serum 02-25-2 = 100 98-107 complet or 017 mmoL/L ed plasma 15:06 chlorid e measure ment (mo Serum 11-13-2 = 8.7 8.5-10. complet or 017 mg/dL 1 ed plasma 15:06 calcium measure ment (mas Serum = 49 7-18 complet or 017 mg/dL ed plasma 15:06 urea nitroge n measure men Serum = 0.6 0.2-1.0 complet or 017 mg/dL ed plasma 15:06 total bilirub in measure m Serum = 157 46-116 complet or 017 U/L ed plasma 15:06 alkalin e phospha tase emmy Serum = 3.0 3.4-5.0 complet or 017 gm/dL ed plasma 15:06 albumin measure ment (mas Serum = 0.9 1.1-1.8 complet or 017 ed plasma 15:06 albumin /globul in mass ra Salicylate ser/plas (02-17-2017 04:00) Salicyl = 2.8 2.8-20. complet ate 017 mg/dL 0 ed ser/yuli 04:00 s Comprehensive metabolic panel (02-17-2017 04:00) ALT = 52 12-78 complet (SGPT) 017 U/L ed ser/yuli 04:00 s Serum = 37 15-37 complet or 017 U/L ed plasma 04:00 asparta te aminotr ansfera Serum = 136 136-145 complet sodium 017 mmoL/L ed measure 04:00 ment Serum = 4.6 3.5-5.1 complet potassi 017 mmoL/L ed um 04:00 measure ment Serum = 117 74-106 complet or 017 mg/dL ed plasma 04:00 glucose measure ment (mas Serum = 4.3 1.3-3.2 complet globuli 017 gm/dL ed n 04:00 measure ment (mass/v olume) Estimat = 35 59- complet ed 017 ML/MIN ed glomeru 04:00 lar filtrat ion rate (GF Estimat = 60 50-200 complet ion of 017 ML/MIN ed creatin 04:00 ine renal clearan ce Serum 11-05-2 = 1.5 0.55-1. complet or 017 mg/dL 02 ed plasma 04:00 creatin ine measure ment ( Carbon = 24 21.0-32 complet dioxide 017 mmoL/L .0 ed 04:00 measure ment Serum = 98 98-107 complet or 017 mmoL/L ed plasma 04:00 chlorid e measure ment (mo Serum 2 = 9.4 8.5-10. complet or 017 mg/dL 1 ed plasma 04:00 calcium measure ment (mas Serum = 54 7-18 complet or 017 mg/dL ed plasma 04:00 urea nitroge n measure men Serum = 0.5 0.2-1.0 complet or 017 mg/dL ed plasma 04:00 total bilirub in measure m Serum = 134 46-116 complet or 017 U/L ed plasma 04:00 alkalin e phospha tase emmy Serum = 3.0 3.4-5.0 complet or 017 gm/dL ed plasma 04:00 albumin measure ment (mas Serum = 0.7 1.1-1.8 complet or 017 ed plasma 04:00 albumin /globul in mass ra Protein = 7.3 6.4-8.2 complet total 017 gm/dL ed ser/yuli 04:00 s Serum or plasma ethanol measurement ([facility] (02-17-2017 04:00) Serum 02-17-2 = 0 0-99 complet or 017 mg/dL ed plasma 04:00 ethanol measure ment ([facility] Acetaminophen level (mass/volume) (02-17-2017 04:00) Acetami = 0 10-30 complet nophen 017 ug/mL ed level 04:00 (mass/v olume) Urine 9-analyte drugs of abuse screening (02-17-2017 04:00) 11-hydr NEGATIV <50 complet oxy 017 E ed delta-9 04:00 NEGATIV E L tetrahy ng/mL drocann abinol Phencyc = <25 complet lidine 017 NEGATIV ed measure 04:00 E ng/mL ment (mass/v olume) Opiates = <300 complet 017 POSITIV ed measure 04:00 E ng/mL ment (mass/v olume) Methado = <300 complet ne 017 NEGATIV ed measure 04:00 E ng/mL ment (mass/v olume) Cocaine = <300 complet 017 NEGATIV ed measure 04:00 E ng/g ment (mass/v olume) Serum = 200 complet or 017 NEGATIV ng/mL ed plasma 04:00 E ng/mL benzodi azepine s measure m Urine = <200 complet barbitu 017 NEGATIV ed rates 04:00 E ng/mL measure ment by screen Urine NEGATIV <1000 complet ampheta 017 E ed mine 04:00 NEGATIV screeni E L ng test ng/mL Urinalysis with microscopy (02-17-2017 04:00) Urine 0.2 0.2 NEG complet urobili 017 L ed nogen 04:00 E.U./dL detecti on by test str [place]ou 5-10 0-5 complet s 017 5-10 L ed epithel 04:00 #/hpf ial cells detecti on in u Urine = 1.025 1.005-1 complet specifi 017 .030 ed c 04:00 gravity measure ment Urine 1 + NEG complet protein 017 mg/dL ed 04:00 measure ment by automat ed t Urine = 6.0 5.0-8.5 complet pH 017 ed 04:00 Urine NEGATIV NEG complet nitrite 017 E ed 04:00 NEGATIV detecti E L on by test strip Mucus NEGATIV NEG complet detecti 017 E ed on in 04:00 NEGATIV urine E L sedimen t by lig Urine NEGATIV NEG complet ketones 017 E ed 04:00 NEGATIV detecti E L on by mg/dL automat ed lauryn Glucose = NEG complet ur 017 NEGATIV ed test 04:00 E strip Urine YELLOW YELLOW complet color 017 YELLOW ed 04:00 L Urine NEGATIV NEG complet blood 017 E ed detecti 04:00 NEGATIV on E L Urine NEGATIV NEG complet total 017 E ed bilirub 04:00 NEGATIV in E L detecti on by test Bacteri 1+ 1+ L O complet a 017 ed detecti 04:00 on in urine sedimen t by Amorpho 2+ 2+ L NONE complet us 017 ed sedimen 04:00 t detecti on in urine se Urine CLEAR CLEAR complet appeara 017 CLEAR L ed nce 04:00 determi nation Urine 3 - 5 O complet leukocy 017 wbc/hpf ed lauryn 04:00 count (number /volume ) CBC w auto diff (02-17-2017 04:00) Blood = 14.1 4.8-10. complet leukocy 017 K/MM3 8 ed lauryn 04:00 count (number /volume ) Automat = 18.4 11.5-17 complet ed 017 % .5 ed erythro 04:00 cyte distrib ution width Red = 4.78 4.2-5.4 complet blood 017 M/mm3 ed cell 04:00 count Blood = 457 142-424 complet platele 017 K/mm3 ed t count 04:00 Automat = 7.7 7.4-10. complet ed 017 fl 4 ed blood 04:00 platele t mean volume emmy Charlton % = 8.0 % 1.7-9.3 complet 017 ed 04:00 Absolut = 1.1 0.1-1.0 complet e 017 K/mm3 ed monocyt 04:00 e count Automat = 75.0 82.2-97 complet ed 017 fl .8 ed erythro 04:00 cyte mean corpusc ular v Automat = 30.0 31.8-35 complet ed 017 g/dl .4 ed erythro 04:00 cyte mean corpusc ular h Mean = 22.5 27-31.2 complet corpusc 017 pg ed ular 04:00 hemoglo bin (MCH) determ Lymphoc = 33.1 10-50.0 complet yte 017 % ed count, 04:00 blood, automat ed Absolut = 4.7 0.7-4.5 complet e 017 K/mm3 ed lymphoc 04:00 yte count Blood = 10.8 12.2-16 complet hemoglo 017 g/dL .2 ed bin 04:00 measure ment (mass/v olum Blood = 35.9 37.0-47 complet hematoc 017 % .0 ed rit 04:00 (volume fractio n) Granulo = 56.0 37.0-80 complet cyte 017 % .0 ed percent 04:00 age Blood = 7.9 1.8-7.8 complet granulo 017 K/mm3 ed cytes 04:00 automat ed count (numb Automat = 2.2 % 0.1-12. complet ed 017 0 ed blood 04:00 eosinop hils/10 0 leukocy t Automat = 0.3 0.0-0.4 complet ed 017 K/mm3 ed blood 04:00 eosinop hil count Baso % = 0.7 % 0.1-2.0 complet 017 ed 04:00 Automat = 0.1 0-0.2 complet ed 017 K/MM3 ed blood 04:00 basophi l count (count/ vo Drugs identified in Urine by Screen method (02-17-2017 04:00) Ampheta NEGATIV <1000 complet mine 017 E ed [Presen 04:00 ce] in Urine by Screen method Hydr NEGATIV <50 complet oxy 017 E ed delta-9 04:00 tetrahy drocann abinol [Presen ce] in Unspeci fied specime n Urinalysis dipstick W Reflex Microscopic panel in Urine (02-17-2017 04:00) Amorpho 2+ NONE complet us 017 ed sedimen 04:00 t [Presen ce] in Urine sedimen t by Light microsc opy Bacteri 1+ O complet a 017 ed [Presen 04:00 ce] in Urine sedimen t by Light microsc opy Epithel 5-10 0#/hp complet ial 017 f - ed cells.s 04:00 5#/hp quamous f [Presen ce] in Urine sedimen t by Microsc opy high power field Leukocy 3-5 O complet lauryn 017 wbc/hpf ed [#/volu 04:00 me] in Urine Urinalysis dipstick W Reflex Microscopic panel in Urine (02-17-2017 04:00) Appeara CLEAR CLEAR complet nce of 017 ed Urine 04:00 Bilirub NEGATIV NEG complet in 017 E ed [Presen 04:00 ce] in Urine by Test strip Erythro NEGATIV NEG complet cytes 017 E ed [Presen 04:00 ce] in Urine Color YELLOW YELLOW complet of 017 ed Urine 04:00 Ketones NEGATIV NEG complet 017 E ed [Presen 04:00 ce] in Urine by Automat ed test strip Mucus NEGATIV NEG complet [Presen 017 E ed ce] in 04:00 Urine sedimen t by Light microsc opy Nitrite NEGATIV NEG complet 017 E ed [Presen 04:00 ce] in Urine by Test strip Urobili 0.2 NEG complet nogen 017 ed [Presen 04:00 ce] in Urine by Test strip D dimer FEU PPP-mCnc (02-14-2017 12:55) D dimer 2.22 <0.51 complet FEU 017 mg/L ed PPP-mCn 12:55 FEU c UUN Ur-mCnc (02-13-2017 13:53) UUN 499 complet Ur-mCnc 017 mg/dL ed 13:53 Creat Ur-mCnc (02-13-2017 13:53) Creat 65 complet Ur-mCnc 017 mg/dL ed 13:53 Sodium Ur-sCnc (02-13-2017 13:53) Sodium < 20 complet Ur-sCnc 017 mmol/L ed 13:53 Vancomycin SerPl-mCnc (02-08-2017 05:26) Vancomy 17.8 0-40.0 complet diana 017 ug/mL ed SerPl-m 05:26 Cnc Magnesium SerPl-mCnc (02-08-2017 02:02) Magnesi 2.2 1.9-2.4 complet um 017 mg/dL ed SerPl-m 02:02 Cnc Potassium SerPl-sCnc (02-07-2017 03:13) Potassi 3.7 3.7-4.8 complet um 017 mmol/L ed SerPl-s 03:13 Cnc Phosphate SerPl-mCnc (02-07-2017 02:07) Phospha 2.9 2.5-4.5 complet te 017 mg/dL ed SerPl-m 02:07 Cnc Magnesium SerPl-mCnc (02-07-2017 02:07) Magnesi 1.7 1.9-2.4 complet um 017 mg/dL ed SerPl-m 02:07 Cnc Phosphate SerPl-mCnc (02-06-2017 02:03) Phospha 4.0 2.5-4.5 complet te 017 mg/dL ed SerPl-m 02:03 Cnc Magnesium SerPl-mCnc (02-06-2017 02:03) Magnesi 1.9 1.9-2.4 complet um 017 mg/dL ed SerPl-m 02:03 Cnc Ca-I SerPl ISE-sCnc (02-06-2017 02:03) Ca-I 4.4 4.6-5.1 complet SerPl 017 mg/dL ed ISE-sCn 02:03 c Lactate Bld-sCnc (02-06-2017 02:03) Lactate 0.9 complet 017 mmol/L ed Bld-sCn 02:03 c Mycobacterium XXX Ql Cult (02-05-2017 13:51) Bacteri [id number] complet a XXX 017 00 not ed Anaerob 13:51 isolate e+Aerob d e Cult (qualif ier value) SCT NM21 NO ACID FAST BACILLI ISOLATE D AT 3 WEEKS L Comment: not isolated (qualifier value) Fungus Tiss Cult (02-05-2017 13:51) Bacteri [id number] complet a XXX 017 5 ed Anaerob 13:51 Sharmin e+Aerob e Cult albican s (organi sm) SCT CALB SHARMIN ALBICAN S L SPECIME RCVD complet N 017 ORDER ed CONTAIN 13:51 PROCESS ER ED. L INFO: TUAN Prep XXX (02-05-2017 13:51) TUAN [id number] complet 017 03 ed 13:51 sample: fungus not isolate d (findin g) SCT NOFEO NO FUNGAL ELEMENT S OBSERVE D L Bacteria Bronch Aerobe Cult (02-05-2017 13:51) Bacteri [id number] complet a XXX 017 5 ed Anaerob 13:51 Sharmin e+Aerob e Cult albican s (organi sm) SCT CALB SHARMIN ALBICAN S L CC XXX LGRO complet VC-aCnc 017 LIGHT ed 13:51 GROWTH L SPECIME RCVD complet N 017 ORDER ed CONTAIN 13:51 PROCESS ER ED. L INFO: Acid fast Stn XXX Ql (02-05-2017 13:51) ACID [id number] complet FAST 017 8 not ed STAIN 13:51 seen (qualif ier value) SCT NOAFB NO AFB SEEN L Mycobacterium XXX Ql Cult (02-05-2017 13:51) [...] SPECIME 13:51 PROCESS N EXAM ED. L Resp virus 12 Pnl XXX PCR (02-05-2017 13:51) BAL PCR [id number] complet RESULT 017 09 ed 13:51 negativ e (qualif ier value) SCT NEGRP NEGATIV E for all analyte s L HSV1+2 DNA XXX Ql PCR (02-05-2017 13:51) HSV1+2 DUP complet DNA XXX 017 DUPLICA ed Ql PCR 13:51 TE ORDER,C REDITED L Lactate Bld-sCnc (02-05-2017 02:08) Lactate 1.2 complet 017 mmol/L ed Bld-sCn 02:08 c Ca-I SerPl ISE-sCnc (02-05-2017 02:08) Ca-I 4.0 4.6-5.1 complet SerPl 017 mg/dL ed ISE-sCn 02:08 c Lactate Bld-sCnc (02-04-2017 16:50) Lactate 0.9 complet 017 mmol/L ed Bld-sCn 16:50 c UUN Ur-mCnc (02-04-2017 14:09) UUN 587 complet Ur-mCnc 017 mg/dL ed 14:09 Sodium Ur-sCnc (02-04-2017 14:09) Sodium 24 complet Ur-sCnc 017 mmol/L ed 14:09 Creat Ur-mCnc (02-04-2017 14:09) Creat 103 complet Ur-mCnc 017 mg/dL ed 14:09 Chloride Ur-sCnc (02-04-2017 14:09) Chlorid < 20 complet e 017 mmol/L ed Ur-sCnc 14:09 MDRO Wnd (02-04-2017 13:41) Bacteri ,REFER complet a XXX 017 TO ed Anaerob 13:41 ACCESSI e+Aerob ON e Cult [id number] FOR RESULTS Bacteri DUP complet a XXX 017 DUPLICA ed Anaerob 13:41 TE e+Aerob ORDER,C e Cult REDITED L CC XXX NOTAP complet VC-aCnc 017 NOT ed 13:41 APPLICA BLE L SPECIME RCVD complet N 017 ORDER ed CONTAIN 13:41 PROCESS ER ED. L INFO: Bacteria XXX Anaerobe+Aerobe Cult (02-04-2017 09:39) Bacteri [id number] complet a XXX 017 06 No ed Anaerob 09:39 growth e+Aerob (qualif e Cult ier value) SCT NGB6 NO GROWTH DAY 5. L SPECIME [id number] complet N 017 03 ed CONTAIN 09:39 blood ER volume INFO: estimat ion (proced ure) SCT BVA BLOOD CULTURE VOLUME ACCEPTA BLE L SPECIME FANB complet N 017 AEROBIC ed CONTAIN 09:39 FAN ER AND INFO: ANAEROB IC BLOOD CULTURE BOTTLES L Legionella Ag Ur Ql (02-04-2017 09:39) RESULT [id number] complet LEGIONE 017 09 ed LLA 09:39 [...] PNEUMO 017 ed AG 09:39 RESULT STREP [id number] complet PNEUMO 017 09 ed AG 09:39 negativ RESULT e (qualif ier value) SCT NEGU NEGATIV E for Strepto coccus pneumon iae antigen . L Resp virus 12 Pnl XXX PCR (02-04-2017 09:39) COMP [id number] complet RESP 017 09 ed PCR 09:39 negativ PANEL e RESULT: (qualif ier value) SCT NEGRP NEGATIV E for all analyte s L NT-proBNP SerPl-mCnc (02-04-2017 09:39) NT-proB [id number] 0-899 complet PRESS FEEDER 017 pg/mL ed SerPl-m 09:39 Cnc T4 Free SerPl-mCnc (02-04-2017 09:39) T4 Free 1.2 0.8-1.7 complet 017 ng/dL ed SerPl-m 09:39 Cnc TSH SerPl DL<=0.005 mIU/L-aCnc (02-04-2017 09:39) TSH 10-23-2 1.58 0.4-4.2 complet SerPl 017 uIU/mL ed DL<=0.0 09:39 05 mIU/L-a Cnc Bacteria Bro [place] Aerobe Cult (02-04-2017 09:30) Bacteri [id number] complet a XXX 017 5 ed Anaerob 09:30 Sharmin e+Aerob e Cult albican s (organi sm) SCT CALB SHARMIN ALBICAN S L SPECIME RCVD complet N 017 ORDER ed CONTAIN 09:30 PROCESS ER ED. L INFO: Bacteria XXX Anaerobe+Aerobe Cult (02-04-2017 07:17) Bacteri [id number] complet a XXX 017 06 No ed Anaerob 07:17 growth e+Aerob (qualif e Cult ier value) SCT NGB6 NO GROWTH DAY 5. L SPECIME [id number] complet N 017 03 ed CONTAIN 07:17 blood ER volume INFO: estimat ion (proced ure) SCT BVA BLOOD CULTURE VOLUME ACCEPTA BLE L SPECIME FANB complet N 017 AEROBIC ed CONTAIN 07:17 FAN ER AND INFO: ANAEROB IC BLOOD CULTURE BOTTLES L Magnesium SerPl-mCnc (02-04-2017 07:01) Magnesi 2.1 1.9-2.4 complet um 017 mg/dL ed SerPl-m 07:01 Cnc Prealb SerPl-mCnc (02-04-2017 07:01) Prealb 10.4 20-41 complet SerPl-m 017 mg/dL ed Cnc 07:01 Phosphate SerPl-mCnc (02-04-2017 07:01) Phospha 5.8 2.5-4.5 complet te 017 mg/dL ed SerPl-m 07:01 Cnc Hgb A1c MFr Bld (02-04-2017 07:01) Hgb A1c 6.5 % 4.7-6.0 complet MFr 017 ed Bld 07:01 Lactate Bld-sCnc (02-04-2017 06:42) Lactate 1.5 complet 017 mmol/L ed Bld-sCn 06:42 c MDRO Wnd (02-04-2017 06:36) Bacteri [id number] complet a XXX 017 01 ed Anaerob 06:36 Methici e+Aerob llin e Cult resista nt Staphyl ococcus aureus (organi sm) SCT MRSA1 (MRSA) L Bacteri [id number] complet a XXX 017 ed Anaerob 06:36 Staphyl e+Aerob ococcus e Cult aureus (organi sm) SCT SAUR STAPHYL OCOCCUS AUREUS L Bacteri [id number] complet a XXX 017 2 ed Anaerob 06:36 Enterob e+Aerob acter e Cult cloacae (organi sm) SCT ENTC ENTEROB ACTER CLOACAE L CC XXX NOTAP complet VC-aCnc 017 NOT ed 06:36 APPLICA BLE L SPECIME RCVD complet N 017 ORDER ed CONTAIN 06:36 PROCESS ER ED. L INFO: Arterial blood gas (02-04-2017 05:10) Measure = 16 complet ment of 017 ed 05:10 respira tory rate at maxim TIDAL 400 complet VOLUME 017 ed 05:10 Arteria = 21.3 23-27 complet l blood 017 MMOL/L ed carbon 05:10 dioxide , total emmy Arteria = 97.5 90-100 complet l blood 017 % ed oxygen 05:10 saturat ion calcula PRESSUR 10 complet E 017 ed SUPPORT 05:10 Arteria = 109.3 80-100 complet l whole 017 MMHG ed blood 05:10 PO2 at POC Arteria = 7.26 7.35-7. complet l blood 017 MMOL/L 45 ed pH 05:10 measure ment Serum = 5 complet or 017 ed plasma 05:10 phenyto in measure ment (m Arteria = 45.5 35.0-45 complet l blood 017 MMHG .0 ed 05:10 partial pressur e of carbo Arteria = 95 complet l blood 017 ed total 05:10 oxygen content ángel Arteria = 19.9 22.0-26 complet l blood 017 MMOL/L .0 ed 05:10 bicarbo zaid measure ment ( Arteria - 7.3 -2.4-+2 complet l blood 017 MMOL/L .3 ed base 05:10 excess determi nation Gas panel in Arterial blood (02-04-2017 05:10) PRESSUR 10 complet E 017 ed SUPPORT 05:10 TIDAL 400 complet VOLUME 017 ed 05:10 Cardiac enzymes (02-04-2017 04:30) Serum = 0.08 0.00-0. complet or 017 [...] Acute neurological disease Atrial fib. Serum = 217 26-192 complet or 017 U/L ed plasma 04:30 creatin e kinase measure m Serum = 4.7 0.0-3.6 complet or 017 ng/mL ed plasma 04:30 creatin e kinase MB measu Serum = 2.2 0-4.0 complet or 017 U/L ed plasma 04:30 creatin e kinase MB (CK-M Glucose capillary blood glucometer (02-04-2017 02:28) Glucose = 180 70-110 complet 017 mg/dl ed capilla 02:[address] Arterial blood gas (02-04-2017 00:57) Arteria = 22.6 23-27 complet l blood 017 MMOL/L ed carbon 00:57 dioxide , total emmy SOURCE R/R complet 017 ed 00:57 Arteria = 88.0 90-100 complet l blood 017 % ed oxygen 00:57 saturat ion calcula Arteria = 66.0 80-100 complet l whole 017 MMHG ed blood 00:57 PO2 at POC Arteria = 7.20 7.35-7. complet l blood 017 MMOL/L 45 ed pH 00:57 measure ment Comment: CRITICAL RESULTS Comment: RESULTS CALLED TO: DR GAMINO 02/04/17 0059 Quang Holly Arteria = 54.4 35.0-45 complet l blood 017 MMHG .0 ed 00:57 partial pressur e of carbo Comment: CRITICAL RESULTS Comment: RESULTS CALLED TO: DR GAMINO 02/04/179 Quang Holly Arteria = 100 complet l blood 017 ed total 00:57 oxygen content ángel Arteria = 21.0 22.0-26 complet l blood 017 MMOL/L .0 ed 00:57 bicarbo zaid measure ment ( [facility] complet test 017 ed before 00:57 arteria l blood gas Arteria - 7.0 -2.4-+2 complet l blood 017 MMOL/L .3 ed base 00:57 excess determi nation Gas panel in Arterial blood (02-04-2017 00:57) Arteria Y complet l 017 ed patency 00:57 Wrist artery --pre arteria l punctur e SOURCE R/R complet 017 ed 00:57 Cardiac enzymes (02-03-2017 23:05) Serum = 0.10 0.00-0. complet or 017 [...] Acute neurological disease Atrial fib. Serum = 210 26-192 complet or 017 U/L ed plasma 23:05 creatin e kinase measure m Serum = 4.3 0.0-3.6 complet or 017 ng/mL ed plasma 23:05 creatin e kinase MB measu Serum = 2.0 0-4.0 complet or 017 U/L ed plasma 23:05 creatin e kinase MB (CK-M Lactate ser/plas (02-03-2017 23:05) Lactate = 3.0 0.4-2.0 complet 017 MMOL/L ed ser/yuli 23:05 s Comment: An elevated Lactic Acid is suggestive of sepsis and should Comment: be repeated within 6 hours of initial testing. Arterial blood gas (02-03-2017 23:04) Arteria - 5.9 -2.4-+2 complet l blood 017 MMOL/L .3 ed base 23:04 excess determi nation Arteria = 21.7 23-27 complet l blood 017 MMOL/L ed carbon 23:04 dioxide , total emmy SOURCE R/R complet 017 ed 23:04 Arteria = 92.6 90-100 complet l blood 017 % ed oxygen 23:04 saturat ion calcula Arteria = 74.6 80-100 complet l whole 017 MMHG ed blood 23:04 PO2 at POC Arteria = 7.31 7.35-7. complet l blood 017 MMOL/L 45 ed pH 23:04 measure ment Arteria = 42.0 35.0-45 complet l blood 017 MMHG .0 ed 23:04 partial pressur e of carbo Arteria = 100 complet l blood 017 ed total 23:04 oxygen content ángel Arteria = 20.4 22.0-26 complet l blood 017 MMOL/L .0 ed 23:04 bicarbo zaid measure ment ( [facility] complet test 017 ed before 23:04 arteria l blood gas Gas panel in Arterial blood (02-03-2017 23:04) Arteria Y complet l 017 ed patency 23:04 Wrist artery --pre arteria l punctur e SOURCE R/R complet 017 ed 23:04 Urinalysis with microscopy (02-03-2017 22:25) Comment: Collected by nurse? Y Comment: Hold specimen in OE? N Urine 0.2 0.2 NEG complet urobili 017 L ed nogen 22:25 E.U./dL detecti on by test str [place] 20-50 0-5 complet s 017 20-50 L ed epithel 22:25 #/hpf ial cells detecti on in u Urine > = 1.005-1 complet specifi 017 1.030 .030 ed c 22:25 gravity measure ment Erythro OCC OCC 0 complet cytes 017 L ed detecti 22:25 rbc/hpf on in urine sedimen t Urine 2 + NEG complet protein 017 mg/dL ed 22:25 measure ment by automat ed t Urine = 5.5 5.0-8.5 complet pH 017 [...] 017 CLOUDY ed nce 22:25 L determi [facility] Comprehensive metabolic panel (02-03-2017 20:50) Protein = [...] SQUARE METERS Comment: If this patient is -[place]ames[place], then multiply the Comment: result by 1.210. [...] mass ra Cardiac enzymes (02-03-2017 20:50) Serum 02-03-2 = 0.12 0.00-0. complet or 017 ng/mL [...] RESULTS CALLED TO Tacho SOMMERS RN 02/03/17 [id number] Ti Yu Whole blood INR measurement (02-03-2017 [...] values for the exclusion of these conditions. Blood lactic acid measurement (moles/vol (02-03-2017 20:50) Blood = 3.4 0.4-2.0 complet lactic 017 mmol/L ed acid 20:50 measure ment (moles/ vol Comment: An elevated Lactic Acid is suggestive of sepsis and should Comment: be repeated within 6 hours of initial testing. CBC w auto diff (02-03-2017 20:50) Blood [...] blood 20:50 platele t mean volume emmy Charlton % = 5.6 % 1.7-9.3 complet 017 ed 20:50 Absolut = 0.8 0.1-1.0 complet e 017 K/mm3 ed monocyt 20:50 e count Automat 10-22-2 = 74.8 82.2-97 complet ed 017 fl [...] K/mm3 ed lymphoc 20:50 yte count Blood = 12.8 12.2-16 complet hemoglo 017 [...] Glucose capillary blood glucometer (02-01-2017 06:29) Glucose 02-01-2 = 126 70-110 complet 017 mg/dl ed capilla 06:[address] Glucose capillary blood glucometer (01-31-2017 20:33) Glucose 10-2 = 109 70-110 complet 017 mg/dl ed capilla 20:[address] Glucose capillary blood glucometer (01-31-2017 16:48) Glucose 10-2 = 117 70-110 complet 017 mg/dl ed capilla 16:[address] Glucose capillary blood glucometer (01-31-2017 11:23) Glucose 01-31-2 = 111 70-110 complet 017 mg/dl ed capilla 11:[address] Comprehensive metabolic panel (01-31-2017 07:00) Serum 2 = 4.1 3.5-5.1 complet potassi 017 mmoL/L [...] SQUARE METERS Comment: If this patient is -Surinamese, then multiply the Comment: result by 1.210. [...] plasma 07:00 albumin /globul in mass ra Protein = 6.2 6.4-8.2 complet total 017 gm/dL ed ser/yuli 07:00 s ALT = 70 12-78 complet (SGPT) 017 U/L ed ser/yuli 07:00 s Serum = 84 15-37 complet or 017 U/L ed plasma 07:00 asparta te aminotr ansfera Serum = 145 136-145 complet sodium 017 mmoL/L ed measure 07:00 ment CBC w auto diff (01-31-2017 07:00) Granulo [...] blood 07:00 platele t mean volume emmy Charlton % = 7.6 % 1.7-9.3 complet 017 [...] glucome ter Urine culture (01-30-2017 04:05) Urine [id number] complet culture 017 5 Yeast ed 04:05 SCT Y YEAST L Urine YEAST complet culture 017 ISOLATE ed 04:05 D. SENT TO [facility] FOR ID ON 7. Bacteria identified in Urine by Culture (01-30-2017 04:05) Bacteri YEAST complet a 017 ISOLATE ed identif 04:05 D. SENT ied in TO Urine [facility] by FOR ID Culture ON 7. Bacteri Yeast complet a 017 ed identif 04:05 ied in Urine by Culture Glucose capillary blood glucometer (01-29-2017 20:36) Glucose = 104 70-110 complet 017 mg/dl ed capilla 20:[address] Glucose capillary blood glucometer (01-29-2017 17:11) Glucose 01-29- = 106 70-110 complet 017 mg/dl ed capilla 17:[address] Glucose capillary blood glucometer (01-29-2017 11:57) Glucose 2 = 107 70-110 complet 017 mg/dl ed capilla 11:[address] CBC w auto diff (01-29-2017 09:20) Blood [...] blood 09:20 platele t mean volume emmy Charlton % = 4.6 % 1.7-9.3 complet 017 [...] SQUARE METERS Comment: If this patient is -Surinamese, then multiply the Comment: result by 1.210. [...] ed blood 09:20 smear examina tion by li LYMPH 01-29- 8 % 10-50 complet 017 ed 09:20 Hypochr 10-17-2 2+ 2+ L complet omatic 017 ed red 09:20 blood cell detecti on Manual = 2 % 0-3 complet blood 017 ed eosinop 09:20 hils/10 0 leukocy lauryn Automat = 1 % 0-8 complet ed 017 ed blood 09:20 band neutrop hil percent a Differential panel, method unspecified - (01-29-2017 09:20) Hypochr 17-2 2+ complet omia 017 ed [Presen 09:20 ce] in Blood LYMPH 01-29-2 8 % 10% - Low complet 017 50% ed 09:20 Blood 01-29-2 1+ complet smear 017 ed finding 09:20 [Identi fier] in Blood by Light microsc opy Platele 2 NORMAL complet ts 017 ed [Presen 09:20 [...] RIGHT complet 017 BRACHIA ed 08:00 L Comprehensive metabolic panel (01-28-2017 06:17) Comment: COMMENTS TO SAMPLE SEWER: 0600 Protein = 7.4 6.4-8.2 complet total [...] SQUARE METERS Comment: If this patient is -Sur[place]ames[place], then multiply the Comment: result by 1.210. [...] plasma 06:17 albumin /globul in mass ra CBC w auto diff (01-28-2017 06:17) Comment: COMMENTS TO SAMPLE SEWER: 0600 Blood = 31.9 37.0-47 complet hematoc 017 [...] blood 06:17 basophi l count (count/ vo Baso % = 0.1 % 0.1-2.0 complet [...] 017 K/mm3 ed t count 06:17 Automat 10-16-2 = 7.4 7.4-10. complet ed 017 fl 4 ed blood 06:17 platele t mean volume emmy Charlton % = 4.9 % 1.7-9.3 complet 017 ed 06:17 Absolut 2 = 0.6 0.1-1.0 complet e 017 K/mm3 [...] ed bin 06:17 measure ment (mass/v olum Glucose capillary blood glucometer (01-28-2017 03:39) Glucose = 116 70-110 complet 017 mg/dl ed capilla 03:[address] Glucose capillary blood glucometer (01-27-2017 20:32) Glucose 2 = 123 70-110 complet 017 mg/dl ed capilla 20:[address] Glucose capillary blood glucometer (01-27-2017 16:51) Glucose 01-27-2 = 136 70-110 complet 017 mg/dl ed capilla 16:[address] Glucose capillary blood glucometer (01-27-2017 11:42) Glucose 01-27-2 = 120 70-110 complet 017 mg/dl ed capilla 11:[address] Glucose capillary blood glucometer (01-27-2017 06:38) Glucose 2 = 127 70-110 complet 017 mg/dl ed capilla 06:[address] Basic metabolic panel (01-27-2017 05:35) Serum 01-27-2 = 137 136-145 complet sodium 017 mmoL/L ed measure 05:35 ment Serum 2 = 5.0 3.5-5.1 complet potassi 017 mmoL/L ed um 05:35 measure ment Serum 2 = 114 74-106 complet or 017 mg/dL ed plasma 05:35 glucose measure ment (mas Estimat 2 = 38 59- complet ed 017 ML/MIN ed glomeru 05:35 lar filtrat ion rate (GF Comment: REFERENCE RANGE: >60 ML/MIN/1.73 SQUARE METERS Comment: If this patient is -Surinamese, then multiply the Comment: result by 1.210. Estimat = 64 50-200 complet ion of 017 ML/MIN ed creatin 05:35 ine renal clearan ce Serum = 1.4 0.55-1. complet or 017 mg/dL 02 ed plasma 05:35 creatin ine measure ment ( Carbon = 34 21.0-32 complet dioxide 017 mmoL/L .0 ed 05:35 measure ment Serum 2 = 99 98-107 complet or 017 mmoL/L [...] lauryn 05:35 count (number /volume ) Automat 2 = 17.6 11.5-17 complet ed 017 % .5 ed erythro 05:35 cyte distrib ution width Red = 4.16 4.2-5.4 complet blood 017 M/mm3 ed cell 05:35 count Blood = 277 142-424 complet platele 017 K/mm3 ed t count 05:35 Automat 2 = 7.5 7.4-10. complet ed 017 fl 4 ed blood 05:35 platele t mean volume emmy Charlton % = 5.6 % 1.7-9.3 complet 017 [...] SQUARE METERS Comment: If this patient is -Surinamese, then multiply the Comment: result by 1.210. [...] 21:05 Cnc URIC ACID (12-20-2012 21:05) URIC 12-20-2 8.8 2.6-7.2 complet ACID 013 mg/dL ed 21:05 CBC with AUTO DIFF (12-20-2012 21:05) WBC # 07-2 10.1 4.8-10. complet Bld 013 K/MM3 8 ed Auto 21:05 RBC # 07-2 4.43 4.2-5.4 complet Bld 013 M/mm3 ed Auto 21:05 Hgb 07-2 12.4 12.2-16 complet Bld-mCn 013 g/dL .2 ed c 21:05 Hct Fr 37.6 % 37.0-47 complet Bld 013 .0 ed 21:05 MCV RBC 12-20- 84.9 fl 82.2-97 complet 013 .8 ed 21:05 MCH RBC 28.1 pg 27-31.2 complet Qn 013 ed Auto 21:05 MEAN 33.1 31.8-35 complet CORPUSC 013 g/dl .4 ed ULAR 21:05 HGB CONC RDW RBC 15.4 % 11.5-17 complet Auto 013 .5 ed 21:05 Platele 12-20- 270 142-424 complet t Bld 013 K/mm3 ed Ql 21:05 Manual MEAN 8.1 fl 7.4-10. complet PLATELE 013 4 ed T 21:05 VOLUME Granulo 12-20- 67.8 % 37.0-80 complet cytes 013 .0 ed Fr Bld 21:05 Auto LYMPH % 12-20-2 24.0 % 10-50.0 complet 013 ed 21:05 Monocyt 12-20-2 5.6 % 1.7-9.3 complet es Fr 013 ed Bld 21:05 Auto Eosinop 12-20-2 2.2 % 0.1-12. complet hil Fr 013 0 ed Bld 21:05 Auto Basophi 12-20-2 0.3 % 0.1-2.0 complet ls Fr 013 ed Bld 21:05 Auto Granulo 12-20-2 6.8 1.8-7.8 complet cytes # 013 K/mm3 ed Bld 21:05 Auto Lymphoc 12-20-2 2.4 0.7-4.5 complet ytes Fr 013 K/mm3 ed Bld 21:05 Auto Monocyt 12-20-2 0.6 0.1-1.0 complet es # 013 K/mm3 ed Bld 21:05 Auto Eosinop 12-20-2 0.2 0.0-0.4 complet hil # 013 K/mm3 ed Bld 21:05 Auto Basophi 12-20-2 0.0 0-0.2 complet ls # 013 K/MM3 ed Bld 21:05 Auto URIC ACID (11-23-2012 11:30) URIC 9.1 2.6-7.2 complet ACID 013 mg/dL ed 11:30 Glucose dC Glucomtr-[facility] (08-19-2012 11:55) Glucose 166 70-110 complet BldC 013 mg/dl ed Glucomt 11:55 r-[facility] Glucose dC [facility]comtr-[facility] (08-19-2012 06:34) Glucose 103 70-110 complet BldC 013 mg/dl ed Glucomt 06:34 r-[facility] COMPREHENSIVE METABOLIC PANEL (08-19-2012 06:05) Glucose [...] with AUTO DIFF (08-19-2012 06:05) WBC # 07-2 6.0 4.8-10. complet Bld 013 K/MM3 8 [...] ed ULAR 06:05 HGB CONC RDW RBC 05-07-2 15.8 % 11.5-17 complet Auto 013 .5 ed 06:05 Platele 05-07-2 304 142-424 complet t Bld 013 K/mm3 ed Ql 06:05 Manual MEAN -07-2 8.0 fl 7.4-10. complet PLATELE 013 4 [...] 013 K/MM3 ed Bld 06:05 Auto Glucose dC [facility]comtr-[facility] (08-18-2012 20:33) Glucose 08-18-2 150 70-110 complet BldC 013 mg/dl ed Glucomt 20:33 r-[facility] Glucose BldC [facility]comtr[facility] (08-18-2012 17:05) Glucose 08-18-2 162 70-110 complet BldC 013 mg/dl ed [facility] (08-18-2012 11:49) Glucose 06-2 130 70-110 complet BldC 013 mg/dl ed Glucomt 11:49 r-[facility] URINALYSIS/COMPLETE (08-18-2012 11:38) URINE 05-06-2 YELLOW [...] 013 #/hpf ed S CELLS 11:38 Glucose [facility]comtr[facility] (08-18-2012 06:37) Glucose 05-06-2 108 70-110 complet BldC 013 mg/dl ed Glucomt 06:37 [facility] Glucose [facility]tr[facility] (08-17-2012 21:07) Glucose 05-05-2 176 70-110 complet BldC 013 mg/dl ed Glucomt 21:07 [facility] COMPREHENSIVE METABOLIC PANEL (08-17-2012 12:45) Glucose -05-2 164 74-106 complet 013 mg/dL ed Bld-mCn 12:45 c BUN 08-17-2 31 7-18 complet Bld-mCn 013 mg/dL ed c 12:45 Creat -05-2 1.2 0.6-1.0 complet SerPl-m 013 mg/dL ed Cnc 12:45 ESTIMAT -05-2 83 50-200 complet ED 013 ML/MIN ed CREATIN 12:45 INE CLEARAN CE GFR 05-2 46 59- complet (ESTIMA 013 ML/MIN ed JULIANNE) 12:45 Sodium -05-2 138 136-145 complet SerPl-s 013 mmoL/L ed Cnc 12:45 Potassi 05-2 2.4 3.5-5.1 Low complet um 013 mmoL/L alert ed SerPl-s 12:45 Cnc Chlorid 05-2 98 98-107 complet e 013 mmoL/L ed SerPl-s 12:45 Cnc CO2 05-2 36 21.0-32 complet SerPl-s 013 mmoL/L .0 ed Cnc 12:45 Calcium -05-2 8.6 8.5-10. complet 013 mg/dL 1 ed SerPl-m 12:45 Cnc Prot 05-2 7.3 6.4-8.2 complet SerPl-m 013 gm/dL ed Cnc 12:45 Albumin -05-2 2.9 3.4-5.0 complet 013 gm/dL ed SerPl-m 12:45 Cnc Globuli 05-2 4.4 1.3-3.2 complet n 013 gm/dL ed Ser-mCn 12:45 c Albumin 05-2 0.7 UNK 1.1-1.8 complet /Glob 013 ed SerPl-m 12:45 Rto Bilirub 05-2 0.4 0.2-1.0 complet 013 mg/dL ed SerPl-m 12:45 Cnc AST 05-2 22 U/L 15-37 complet SerPl-c 013 ed [...] K/MM3 ed Bld 12:45 Auto Glucose BldC [facility]comtr-[facility] (06-01-2012 06:56) Glucose 101 70-110 complet BldC 013 mg/dl ed Glucomt 06:56 r-[facility] Glucose BldC [facility]comtr-[facility] (05-31-2012 20:27) Glucose 161 70-110 complet BldC 013 mg/dl ed Glucomt 20:27 r-[facility] Glucose BldC [facility]comtr-[facility] (05-31-2012 16:53) Glucose 115 70-110 complet BldC 013 mg/dl ed Glucomt 16:53 r-[facility] BASIC METABOLIC PANEL (05-31-2012 12:22) Glucose 114 74-106 complet 013 mg/dL ed Bld-mCn 12:22 c BUN 42 7-18 complet Bld-n 013 mg/dL ed c 12:22 Creat 1.5 [...] 1 ed SerPl-m 12:22 Cnc Glucose dC Glucom-[facility] (05-31-2012 11:57) Glucose 175 70-110 complet BldC 013 mg/dl ed Glucomt 11:57 r-[facility] Glucose BldC Glucomtr-nc (05-31-2012 09:35) Glucose 105 70-110 complet BldC 013 mg/dl ed Glucomt 09:35 r-mCnc Glucose BldC Glucomtr-nc (05-31-2012 07:47) Glucose 170 70-110 complet BldC 013 mg/dl ed Glucomt 07:47 r-mCnc Glucose BldC Glucomtr-nc (05-31-2012 06:22) Glucose 89 70-110 complet BldC 013 mg/dl ed Glucomt 06:22 r-mCoh Glucose BldC Glucomtr-[facility] (05-30-2012 21:31) Glucose 163 70-110 complet BldC 013 mg/dl ed Glucomt 21:31 r-mCoh Glucose BldC Glucomtr-[facility] (05-30-2012 16:38) Glucose 150 70-110 complet BldC 013 mg/dl ed Glucomt 16:38 r-nc Glucose BldC Glucomtr-[facility] (05-30-2012 11:35) Glucose 104 70-110 complet BldC 013 mg/dl ed Glucomt 11:35 r-[facility] Glucose BldC Glucomtr-[facility] (05-30-2012 06:33) Glucose 05-30-2 109 70-110 complet BldC 013 mg/dl ed Glucomt 06:33 r-[facility] BASIC METABOLIC PANEL (05-30-2012 06:32) Glucose [...] SerPl-s 013 mmoL/L ed Cnc 06:32 Potassi 02-15-2 3.8 3.5-5.1 complet um 013 mmoL/L ed SerPl-s 06:32 Cnc Chlorid 05-30-2 97 98-107 complet e 013 mmoL/L ed SerPl-s 06:32 Cnc CO2 15-2 33 21.0-32 complet SerPl-s 013 mmoL/L .0 ed Cnc 06:32 Calcium -15-2 8.5 8.5-10. complet 013 mg/dL 1 ed SerPl-m 06:32 Cnc CBC with AUTO DIFF (05-30-2012 06:32) WBC # 02-15-2 7.7 4.8-10. complet Bld 013 K/MM3 8 ed Auto 06:32 RBC # 02-15-2 4.04 4.2-5.4 complet Bld 013 M/mm3 ed Auto 06:32 Hgb 15-2 10.7 12.2-16 complet Bld-mCn 013 g/dL .2 ed c 06:32 Hct Fr 05-30-2 33.9 % 37.0-47 complet Bld 013 .0 ed 06:32 MCV RBC 15-2 83.9 fl 82.2-97 complet 013 .8 ed 06:32 MCH RBC 15-2 26.4 pg 27-31.2 complet Qn 013 ed Auto 06:32 MEAN 05-30-2 31.5 31.8-35 complet CORPUSC 013 g/dl .4 ed ULAR 06:32 HGB CONC RDW RBC 15-2 15.7 % 11.5-17 complet Auto 013 .5 ed 06:32 Platele 15-2 386 142-424 complet t Bld 013 K/mm3 ed Ql 06:32 Manual MEAN 15-2 7.4 fl 7.4-10. complet PLATELE 013 4 ed T 06:32 VOLUME Granulo 15-2 64.0 % 37.0-80 complet cytes 013 .0 ed Fr Bld 06:32 Auto LYMPH % -15-2 27.8 % 10-50.0 complet 013 ed 06:32 Monocyt -15-2 3.9 % 1.7-9.3 complet es Fr 013 ed Bld 06:32 Auto Eosinop 15-2 3.8 % 0.1-12. complet hil Fr 013 [...] K/MM3 ed Bld 06:32 Auto Glucose BldC Glucomtr-nc (05-29-2012 21:06) Glucose 148 70-110 complet BldC [...] Cnc 23:50 BNP Bld-mCnc (05-28-2012 23:50) BNP 02-13-2 345 0-100 complet Bld-mCn 013 pg/mL ed c 23:50 CBC with AUTO DIFF (05-28-2012 23:50) WBC # 02-13-2 10.9 4.8-10. complet Bld 013 K/MM3 8 ed Auto 23:50 RBC # 02-13-2 3.91 4.2-5.4 complet Bld 013 M/mm3 ed Auto 23:50 Hgb 02-13-2 10.3 12.2-16 complet Bld-mCn 013 g/dL .2 ed c 23:50 Hct Fr 05-28-2 32.1 % 37.0-47 complet Bld 013 .0 ed 23:50 MCV RBC --2 82.1 fl 82.2-97 complet 013 .8 ed [...] ed Fr Bld 23:50 Auto LYMPH % 05-28-2 15.1 % 10-50.0 complet 013 ed 23:50 Monocyt 05-28-2 3.6 % 1.7-9.3 complet es Fr 013 ed Bld 23:50 Auto Eosinop --2 1.8 % 0.1-12. complet hil Fr 013 0 ed Bld 23:50 Auto Basophi --2 0.3 % 0.1-2.0 complet ls Fr 013 ed Bld 23:50 Auto Granulo 02-13-2 8.7 1.8-7.8 complet cytes # 013 K/mm3 ed Bld 23:50 Auto Lymphoc 1.7 0.7-4.5 complet ytes Fr 013 K/mm3 ed Bld 23:50 Auto Monocyt 05-28-2 0.4 0.1-1.0 complet es # 013 K/mm3 ed Bld 23:50 Auto Eosinop 05-28-2 0.2 0.0-0.4 complet hil # 013 K/mm3 ed Bld 23:50 Auto Basophi 2 0.0 0-0.2 complet ls # 013 K/MM3 ed Bld 23:50 Auto Procedures Procedure DOS Code Location Performer Comment CLOSURE 86.59 Leanne MANZANO & Hawa [facility]BC[facility] OUS NEC Encounters Encounter Start End Date Code Location Performer Type Date Emergency VALERY Shaikh MD (ER) 3 20:50 3 21:50 [facility] Emergency VALERY Flowers MD (ER) 3 11:31 3 12:38 [facility] Emergency VALERY Shaikh MD (ER) 3 19:20 3 20:31 [facility] Inpatient OPAL Blanca ([place]) 3 12:50 3 14:20 [facility] Inpatient OPAL Breaux MD (IN) 3 23:10 3 10:45 [facility]
--- OUTSIDE RECORDS SUMMARY | 2017-03-03 01:06 | External Medical Summary Rpt | CCD ---
Author Author , DWIGHT QUINTANILLA Address Unknown Phone [email or web address] Care Team Providers Care Race Board Attendant Name Role Phone Leanne Shaikh MD, Unavailable Unavailable Leanne Blanca MD, Unavailable Unavailable Eduin Blanca MD Purpose Continuity of Care Document - 05-28-2012 through 2016 Problems Code Diagnosis DOS Provider Status 162.9 276.8 Hypokalemia [facility] 416.9 Cor [place] [facility] [id number] G[facility] 585.9 [id number] [facility] [place] [id number] E66.9 OBESITY, UNSPECIFIED E86.0 DEHYDRATION F41.9 ANXIETY [...] RO 07 -0 SE 90 6- Lo DE 07 20 ng DE 32 13 er [...] 5 ti MG ve TA BL ET DE 11 05 1 No RA 52 -0 [...] TF 07 -0 OR 90 5- Lo DE 17 20 ng N 22 13 er [...] 1 Ac TA ti BL ve ET TX 00 02 2 No OM 64 -1 [...] RO 40 -1 SE 96 4- Lo DE 10 20 ng DE 20 13 er [...] TF 07 -1 OR 90 4- Lo DE 17 20 ng N 22 13 er [...] 0M ti G ve Ta bl et TX 00 02 3 No OT 00 -1 [...] SQUARE METERS Comment: If this patient is -[place] African, then multiply the Comment: result by 1.210. [...] 04:00 s Serum or plasma ethanol measurement ([facility] (02-17-2017 04:00) Serum 02-17-2 = 0 0-99 complet or 017 mg/dL ed plasma 04:00 ethanol measure ment ([facility] Acetaminophen level (mass/volume) (02-17-2017 04:00) [...] blood 04:00 platele t mean volume emmy Weber % = 8.0 % 1.7-9.3 complet 017 [...] Mycobacterium XXX Ql Cult (02-05-2017 13:51) Bacteri [id number] complet a XXX 017 00 not ed Anaerob 13:51 isolate e+Aerob d e Cult (qualif ier value) SCT NM21 NO ACID FAST BACILLI ISOLATE D AT 3 WEEKS L Comment: not isolated (qualifier value) Fungus Tiss Cult (02-05-2017 13:51) Bacteri [id number] complet a XXX 017 5 ed Anaerob 13:51 Sharmin e+Aerob e Cult albican s (organi sm) SCT CALB SHARMIN ALBICAN S L SPECIME RCVD complet N 017 ORDER ed CONTAIN 13:51 PROCESS ER ED. L INFO: TUAN Prep XXX (02-05-2017 13:51) TUAN [id number] complet 017 03 ed 13:51 sample: fungus not isolate d (findin g) SCT NOFEO NO FUNGAL ELEMENT S OBSERVE D L Bacteria Bronch Aerobe Cult (02-05-2017 13:51) Bacteri [id number] complet a XXX 017 5 ed Anaerob 13:51 Sharmin e+Aerob e Cult albican s (organi sm) SCT CALB SHARMIN ALBICAN S L CC XXX LGRO complet VC-aCnc 017 LIGHT ed 13:51 GROWTH L SPECIME RCVD complet N 017 ORDER ed CONTAIN 13:51 PROCESS ER ED. L INFO: Acid fast Stn XXX Ql (02-05-2017 13:51) ACID [id number] complet FAST 017 8 not ed STAIN [...] Pnl XXX PCR (02-05-2017 13:51) BAL PCR [id number] complet RESULT 017 09 ed 13:51 negativ [...] Anaerob 13:41 ACCESSI e+Aerob ON e Cult [id number] FOR RESULTS Bacteri DUP complet a XXX 017 DUPLICA ed Anaerob 13:41 TE e+Aerob ORDER,C e Cult REDITED L CC XXX NOTAP complet VC-aCnc 017 NOT ed 13:41 APPLICA BLE L SPECIME RCVD complet N 017 ORDER ed CONTAIN 13:41 PROCESS ER ED. L INFO: Bacteria XXX Anaerobe+Aerobe Cult (02-04-2017 09:39) Bacteri [id number] complet a XXX 017 06 No ed Anaerob 09:39 growth e+Aerob (qualif e Cult ier value) SCT NGB6 NO GROWTH DAY 5. L SPECIME [id number] complet N 017 03 ed CONTAIN 09:39 blood ER volume INFO: estimat ion (proced ure) SCT BVA BLOOD CULTURE VOLUME ACCEPTA BLE L SPECIME FANB complet N 017 AEROBIC ed CONTAIN 09:39 FAN ER AND INFO: ANAEROB IC BLOOD CULTURE BOTTLES L Legionella Ag Ur Ql (02-04-2017 09:39) RESULT [id number] complet LEGIONE 017 09 ed LLA 09:39 [...] PNEUMO 017 ed AG 09:39 RESULT STREP [id number] complet PNEUMO 017 09 ed AG 09:39 negativ RESULT e (qualif ier value) SCT NEGU NEGATIV E for Strepto coccus pneumon iae antigen . L Resp virus 12 Pnl XXX PCR (02-04-2017 09:39) COMP [id number] complet RESP 017 09 ed PCR 09:39 negativ PANEL e RESULT: (qualif ier value) SCT NEGRP NEGATIV E for all analyte s L NT-proBNP SerPl-mCnc (02-04-2017 09:39) NT-proB [id number] 0-899 complet SENIOR FUND ACCOUNTANT 017 pg/mL ed SerPl-m 09:39 Cnc T4 Free SerPl-mCnc (02-04-2017 09:39) T4 Free 1.2 0.8-1.7 complet 017 ng/dL ed SerPl-m 09:39 Cnc TSH SerPl DL<=0.005 mIU/L-aCnc (02-04-2017 09:39) TSH 10-23-2 1.58 0.4-4.2 complet SerPl 017 uIU/mL ed DL<=0.0 09:39 05 mIU/L-a Cnc Bacteria Bro Pollock Aerobe Cult (02-04-2017 09:30) Bacteri [id number] complet a XXX 017 5 ed Anaerob 09:30 Sharmin e+Aerob e Cult albican s (organi sm) SCT CALB SHARMIN ALBICAN S L SPECIME RCVD complet N 017 ORDER ed CONTAIN 09:30 PROCESS ER ED. L INFO: Bacteria XXX Anaerobe+Aerobe Cult (02-04-2017 07:17) Bacteri [id number] complet a XXX 017 06 No ed Anaerob 07:17 growth e+Aerob (qualif e Cult ier value) SCT NGB6 NO GROWTH DAY 5. L SPECIME [id number] complet N 017 03 ed CONTAIN 07:17 [...] 06:42 c MDRO Wnd (02-04-2017 06:36) Bacteri [id number] complet a XXX 017 01 ed Anaerob 06:36 Methici e+Aerob llin e Cult resista nt Staphyl ococcus aureus (organi sm) SCT MRSA1 (MRSA) L Bacteri [id number] complet a XXX 017 ed Anaerob 06:36 Staphyl e+Aerob ococcus e Cult aureus (organi sm) SCT SAUR STAPHYL OCOCCUS AUREUS L Bacteri [id number] complet a XXX 017 2 ed Anaerob [...] CLOUDY ed nce 22:25 L determi [facility] Comprehensive metabolic panel (02-03-2017 20:50) Protein = [...] SQUARE METERS Comment: If this patient is -[place], then multiply the Comment: result by 1.210. [...] RESULTS CALLED TO Tacho SOMMERS RN 02/03/17 5618 Ti Yu Whole blood INR measurement (02-03-2017 [...] blood 20:50 platele t mean volume emmy Weber % = 5.6 % 1.7-9.3 complet 017 [...] SQUARE METERS Comment: If this patient is -[place], then multiply the Comment: result by 1.210. [...] blood 07:00 platele t mean volume emmy Weber % = 7.6 % 1.7-9.3 complet 017 [...] glucome ter Urine culture (01-30-2017 04:05) Urine [id number] complet culture 017 5 Yeast ed 04:05 [...] blood 09:20 platele t mean volume emmy Weber % = 4.6 % 1.7-9.3 complet 017 [...] SQUARE METERS Comment: If this patient is -[place], then multiply the Comment: result by 1.210. [...] metabolic panel (01-28-2017 06:17) Comment: COMMENTS TO PLANT BIOLOGY PROFESSOR: 0600 Protein = 7.4 6.4-8.2 complet total [...] SQUARE METERS Comment: If this patient is -[place], then multiply the Comment: result by 1.210. [...] auto diff (01-28-2017 06:17) Comment: COMMENTS TO PLANT BIOLOGY PROFESSOR: 0600 Blood = 31.9 37.0-47 complet hematoc [...] blood 06:17 platele t mean volume emmy Weber % = 4.9 % 1.7-9.3 complet 017 [...] SQUARE METERS Comment: If this patient is -[place], then multiply the Comment: result by 1.210. [...] blood 05:35 platele t mean volume emmy Weber % = 5.6 % 1.7-9.3 complet 017 [...] SQUARE METERS Comment: If this patient is -[place], then multiply the Comment: result by 1.210. [...] ACID 013 mg/dL ed 11:30 Glucose dC Glucomtr-[facility] (08-19-2012 11:55) Glucose 166 70-110 complet BldC 013 mg/dl ed Glucomt 11:55 r-[facility] Glucose dC [facility] (08-19-2012 06:34) Glucose 103 70-110 complet BldC 013 mg/dl ed Glucomt 06:34 r-[facility] COMPREHENSIVE METABOLIC PANEL (08-19-2012 06:05) Glucose 96 [...] K/MM3 ed Bld 06:05 Auto Glucose dC [facility]comtr-[facility] (08-18-2012 20:33) Glucose 08-18-2 150 70-110 complet BldC 013 mg/dl ed Glucomt 20:33 r-[facility] Glucose BldC [facility] (08-18-2012 17:05) Glucose 08-18-2 162 70-110 complet BldC 013 mg/dl ed [facility] 17:[facility] (08-18-2012 11:49) Glucose 06-2 130 70-110 complet BldC 013 mg/dl ed Glucomt 11:49 r-[facility] URINALYSIS/COMPLETE (08-18-2012 11:38) URINE 05-06-2 YELLOW YELLOW [...] 013 #/hpf ed S CELLS 11:38 Glucose [facility] Glucomtr-[facility] (08-18-2012 06:37) Glucose 05-06-2 108 70-110 complet BldC 013 mg/dl ed Glucomt 06:37 [facility] Glucose [facility]comtr-[facility] (08-17-2012 21:07) Glucose 05-05-2 176 70-110 complet BldC 013 mg/dl ed Glucomt 21:07 [facility] COMPREHENSIVE METABOLIC PANEL (08-17-2012 12:45) Glucose [...] K/MM3 ed Bld 12:45 Auto Glucose BldC [facility]comtr-[facility] (06-01-2012 06:56) Glucose 101 70-110 complet BldC 013 mg/dl ed Glucomt 06:56 r-[facility] Glucose BldC [facility]tr-[facility] (05-31-2012 20:27) Glucose 161 70-110 complet BldC 013 mg/dl ed Glucomt 20:27 r-[facility] Glucose BldC [facility]tr-[facility] (05-31-2012 16:53) Glucose 115 70-110 complet BldC 013 mg/dl ed Glucomt 16:53 r-[facility] BASIC METABOLIC PANEL (05-31-2012 12:22) Glucose 114 [...] 1 ed SerPl-m 12:22 Cnc Glucose dC Glucom-[facility] (05-31-2012 11:57) Glucose 175 70-110 complet BldC 013 mg/dl ed Glucomt 11:57 r-[facility] Glucose BldC Glucomtr-nc (05-31-2012 09:35) Glucose 105 70-110 complet BldC 013 mg/dl ed Glucomt 09:35 r-mCnc Glucose BldC Glucomtr-nc (05-31-2012 07:47) Glucose 170 70-110 complet BldC 013 mg/dl ed Glucomt 07:47 r-mCnc Glucose BldC Glucomtr-nc (05-31-2012 06:22) Glucose 89 70-110 complet BldC 013 mg/dl ed Glucomt 06:22 r-mCvt Glucose BldC [facility]comtr-[facility] (05-30-2012 21:31) Glucose 163 70-110 complet BldC 013 mg/dl ed Glucomt 21:31 r-mCvt Glucose BldC [facility]comtr-[facility] (05-30-2012 16:38) Glucose 150 70-110 complet BldC 013 mg/dl ed Glucomt 16:38 r-nc Glucose BldC [facility]comtr-[facility] (05-30-2012 11:35) Glucose 104 70-110 complet BldC 013 mg/dl ed Glucomt 11:35 r-[facility] Glucose BldC [facility]comtr-[facility] (05-30-2012 06:33) Glucose 05-30-2 109 70-110 complet BldC 013 mg/dl ed Glucomt 06:33 r-[facility] BASIC METABOLIC PANEL (05-30-2012 06:32) Glucose 105 [...] Shaikh MD (ER) 3 20:50 3 21:50 [facility] VALERY Flowers MD (ER) 3 11:31 3 12:38 [facility] VALERY Shaikh MD (ER) 3 19:20 3 20:31 [facility]patient OPAL Blanca (IN) 3 12:50 3 14:20 [facility]patient OPAL Breaux MD (IN) 3 23:10 3 10:45 [facility]
--- OUTSIDE RECORDS SUMMARY | 2017-03-03 01:09 | External Medical Summary Rpt | CCD ---
Author Author , DWIGHT QUINTANILLA Address Unknown Phone [email or web address] Immunization Name Date Rout CVX Reac Dose [...]
--- OUTSIDE RECORDS SUMMARY | 2017-03-03 01:09 | External Medical Summary Rpt | CCD ---
Author Author , DWIGHT QUINTANILLA Address Unknown Phone [email or web address] Immunization Name Date Rout CVX Reac Dose [...]
--- OUTSIDE RECORDS SUMMARY | 2017-03-03 01:12 | External Medical Summary Rpt ---
Author Author DWIGHT Sharma, [employer] Organization [employer] Address Unknown Phone Unavailable Results Comprehensive metabolic 2000 panel in Serum or Plasma Observa Value Referen Units Interpr Notes Date tion ce etation Range Albumin/G 1.1 - 1.8 No Low No Feb 25 lobulin informati informati 2016 3:06 [Mass on in on in PM ratio] in source source Serum or data data Plasma Albumin 3.4 - 5.0 gm/dL Low No Feb 25 [Mass/vol informati 2017 3:06 ume] in on in PM Serum or source Plasma data Alkaline 46 - 116 U/L High No Feb 25 phosphata informati 2017 3:06 se on in PM [Enzymati source c data activity/ volume] in Serum or Plasma Bilirubin 0.2 - 1.0 mg/dL Normal No Feb 25 .total informati 2016 3:06 [Mass/vol on in PM ume] in source Serum or data Plasma Urea 7 - 18 mg/dL High No Feb 25 nitrogen informati 2017 3:06 [Mass/vol on in PM ume] in source Serum or data Plasma Calcium 8.5 - mg/dL Normal No Feb 25 [Mass/vol 10.1 informati 2017 3:06 ume] in on in PM Serum or source Plasma data Chloride 98 - 107 mmoL/L Normal No Feb 25 [Moles/vo informati 2016 3:06 lume] in on in PM Serum or source Plasma data Carbon 21.0 - mmoL/L Normal No Feb 25 dioxide, 32.0 informati 2017 3:06 total on in PM [Moles/vo source lume] in data Serum or Plasma Creatinin 0.55 - mg/dL High No Feb 25 e 1.02 informati 2017 3:06 [Mass/vol on in PM ume] in source Serum or data Plasma Estimated 59- ML/MIN Low REFERENCE Feb 25 RANGE: 2017 3:06 glomerula >60 PM r ML/MIN/1. filtratio 73 SQUARE n rate METERSIf (GF this patient is -A merican, then multiply theresult by 1.210. Globulin 1.3 - 3.2 gm/dL Normal No Feb 25 [Mass/vol informati 2016 3:06 ume] in on in PM Serum source data Glucose 74 - 106 mg/dL High No Feb 25 [Mass/vol informati 2016 3:06 ume] in on in PM Serum or source Plasma data Potassium 3.5 - 5.1 mmoL/L High Feb 25 informati 2016 3:06 [Moles/vo on in PM lume] in source Serum or data Plasma Sodium 136 - 145 mmoL/L Low No Feb 25 [Moles/vo informati 2016 3:06 lume] in on in PM Serum or source Plasma data Aspartate 15 - 37 U/L High No Feb 25 informati 2016 3:06 aminotran on in PM sferase source [Enzymati data c activity/ volume] in Serum or Plasma Alanine 12 - 78 U/L High No Feb 25 aminotran informati 2016 3:06 sferase on in PM [Enzymati source c data activity/ volume] in Serum or Plasma Protein 6.4 - 8.2 gm/dL Low No Feb 25 [Mass/vol informati 2016 3:06 ume] in on in PM Serum or source Plasma data Thyrotropin [Units/volume] in Serum or Plasma Observa Value Referen Units Interpr Notes Date tion ce etation Range Thyrotrop 0.358 - uIU/ml No No Feb 25 in 3.740 informati informati 2016 3:06 [Units/vo on in on in PM lume] in source source Serum or data data Plasma Acetaminophen [Mass/volume] in Unspecified specimen Observa Value Referen Units Interpr Notes Date tion ce etation Range Acetamino 10 - 30 ug/mL Low No Feb 17 phen informati 2016 4:00 [Mass/vol on in AM ume] in source Unspecifi data ed specimen Ethanol [Mass/volume] in Serum or Plasma Observa Value Referen Units Interpr Notes Date tion ce etation Range Ethanol 0 - 99 mg/dL Normal ANY Feb 17 [Mass/vol ALCOHOL > 2016 4:00 ume] in OR = 80 AM Serum or MG/DL IS Plasma CONSIDERE D LEGALLYIN TOXICATED UNDER [facility]. Comprehensive metabolic 2000 panel in Serum or Plasma Observa Value Referen Units Interpr Notes Date tion ce etation Range Albumin/G 1.1 - 1.8 No Low No Feb 5 lobulin informati informati 2016 4:00 [Mass on in on in AM ratio] in source source Serum or data data Plasma Albumin 3.4 - 5.0 gm/dL Low No Feb 17 [Mass/vol informati 2016 4:00 ume] in on in AM Serum or source Plasma data Alkaline 46 - 116 U/L High No Feb 17 phosphata informati 2016 4:00 se on in AM [Enzymati source c data activity/ volume] in Serum or Plasma Bilirubin 0.2 - 1.0 mg/dL Normal No Feb 17 .total informati 2016 4:00 [Mass/vol on in AM ume] in source Serum or data Plasma Urea 7 - 18 mg/dL High No Feb 17 nitrogen informati 2016 4:00 [Mass/vol on in AM ume] in source Serum or data Plasma Calcium 8.5 - mg/dL Normal No Feb 17 [Mass/vol 10.1 informati 2016 4:00 ume] in on in AM Serum or source Plasma data Chloride 98 - 107 mmoL/L Normal No Feb 17 [Moles/vo informati 2016 4:00 lume] in on in AM Serum or source Plasma data Carbon 21.0 - mmoL/L Normal No Feb 17 dioxide, 32.0 informati 2016 4:00 total on in AM [Moles/vo source lume] in data Serum or Plasma Creatinin 0.55 - mg/dL High No Feb 17 e 1.02 informati 2016 4:00 [Mass/vol on in AM ume] in source Serum or data Plasma Creatinin 50 - 200 ML/MIN Normal No Feb 17 e renal informati 2016 4:00 clearance on in AM source predicted data by Cockcroft -Gault formula Estimated 59- ML/MIN Low REFERENCE Feb 5 RANGE: 2017 4:00 glomerula >60 AM r ML/MIN/1. filtratio 73 SQUARE n rate METERSIf (GF this patient is -A merican, then multiply theresult by 1.210. Globulin 1.3 - 3.2 gm/dL High No Feb 17 [Mass/vol informati 2016 4:00 ume] in on in AM Serum source data Glucose 74 - 106 mg/dL High No Feb 17 [Mass/vol informati 2016 4:00 ume] in on in AM Serum or source Plasma data Potassium 3.5 - 5.1 mmoL/L Normal No Feb 17 informati 2016 4:00 [Moles/vo on in AM lume] in source Serum or data Plasma Sodium 136 - 145 mmoL/L Normal No Feb 17 [Moles/vo informati 2016 4:00 lume] in on in AM Serum or source Plasma data Aspartate 15 - 37 U/L Normal Feb 17 informati 2016 4:00 aminotran on in AM sferase source [Enzymati data c activity/ volume] in Serum or Plasma Alanine 12 - 78 U/L Normal No Feb 17 aminotran informati 2016 4:00 sferase on in AM [Enzymati source c data activity/ volume] in Serum or Plasma Protein 6.4 - 8.2 gm/dL Normal Feb 17 [Mass/vol informati 2016 4:00 ume] in on in AM Serum or source Plasma data Salicylates [Mass/volume] in Serum or Plasma Observa Value Referen Units Interpr Notes Date tion ce etation Range Salicylat 2.8 - mg/dL Normal No Feb 17 es 20.0 informati 2016 4:00 [Mass/vol on in AM ume] in source Serum or data Plasma Drugs identified in Urine by Screen method Observa Value Referen Units Interpr Notes Date tion ce etation Range Positive urine drug screen samples are stored for 7 days. Contact the Lab if confirmation of positives is needed. Ampheta NEGATIV <1000 ng/mL No Feb 17 mine E informa informa 2016 [Presen tion in tion in 4:00 AM ce] in source source Urine data data by Screen method Barbitura <200 ng/mL No Feb 17 lauryn informati informati 2016 4:00 [Mass/vol on in on in AM ume] in source source Urine by data data Screen method Benzodiaz 200 ng/mL ng/mL No Feb 17 epines informati informati 2016 4:00 [Mass/vol on in on in AM ume] in source source Serum or data data Plasma by Screen method Cocaine <300 ng/g No Feb 17 [Mass/vol informati informati 2017 4:00 ume] in on in on in AM Unspecifi source source ed data data specimen Methadone <300 ng/mL No Feb 17 informati informati 2017 4:00 [Mass/vol on in on in AM ume] in source source Unspecifi data data ed specimen Opiates <300 ng/mL High This is Feb 17 [Mass/vol an 2017 4:00 ume] in UNCONFIRM AM Unspecifi ED ed result. specimen This result is for medicalpu rposes and/or treatment only. Phencycli <25 ng/mL No No Nov 5 dine informati informati 2017 4:00 [Mass/vol on in on in AM ume] in source source Unspecifi data data ed specimen 11-Hydr NEGATIV <50 ng/mL No No Nov 5 oxy E informa informa 2017 delta-9 tion in tion in 4:00 AM source source tetrahy data data drocann abinol [Presen ce] in Unspeci fied specime n Urinalysis dipstick W Reflex Microscopic panel in Urine Observa Value Referen Units Interpr Notes Date tion ce etation Range Appeara CLEAR CLEAR No No No Nov 5 nce of informa informa informa 2017 Urine tion in tion in tion in 4:00 AM source source source data data data Amorpho 2+ NONE No No No Nov 5 us informa informa informa 2017 sedimen tion in tion in tion in 4:00 AM t source source source [Presen data data data ce] in Urine sedimen t by Light microsc opy Bacteri 1+ O No No POSSIBL Nov 5 a informa informa E 2017 [Presen tion in tion in CONTAMI 4:00 AM ce] in source source NATION Urine data data WITH sedimen FECES t by Light microsc opy Bilirub NEGATIV NEG No No No Nov 5 in E informa informa informa 2017 [Presen tion in tion in tion in 4:00 AM ce] in source source source Urine data data data by Test strip Erythro NEGATIV NEG No No No Nov 5 cytes E informa informa informa 2017 [Presen tion in tion in tion in 4:00 AM ce] in source source source Urine data data data Color YELLOW YELLOW No No No Nov 5 of informa informa informa 2017 Urine tion in tion in tion in 4:00 AM source source source data data data Glucose NEG No No No Nov 5 [Mass/vol informati informati informati 2017 4:00 ume] in on in on in on in AM Urine by source source source Test data data data strip Ketones NEGATIV NEG mg/dL No No Nov 5 E informa informa 2016 [Presen tion in tion in 4:00 AM ce] in source source Urine data data by Automat ed test strip Mucus NEGATIV NEG No No No Nov 5 [Presen E informa informa informa 2016 ce] in tion in tion in tion in 4:00 AM Urine source source source sedimen data data data t by Light microsc opy Nitrite NEGATIV NEG No No No Nov 5 E informa informa informa 2016 [Presen tion in tion in tion in 4:00 AM ce] in source source source Urine data data data by Test strip pH of 5.0 - 8.5 No Normal No Nov 5 Urine informati informati 2017 4:00 on in on in AM source source data data Protein NEG mg/dL High No Nov 5 [Mass/vol informati 2017 4:00 ume] in on in AM Urine by source Automated data test strip Specific 1.005 - No Normal No Nov 5 gravity 1.030 informati informati 2017 4:00 of Urine on in on in AM source source data data Epithel 5-10 0 - 5 #/hpf No No Nov 5 ial informa informa 2017 cells.s tion in tion in 4:00 AM quamous source source data data [Presen ce] in Urine sedimen t by Microsc opy high power field Urobili 0.2 NEG E.U./dL No No Nov 5 nogen informa informa 2016 [Presen tion in tion in 4:00 AM ce] in source source Urine data data by Test strip Leukocy [3 O wbc/hpf No No Nov 5 lauryn wbc/hpf informa informa 2016 [#/volu ; 5 tion in tion in 4:00 AM me] in wbc/hpf source source Urine ] data data Urinalysis dipstick W Reflex Microscopic panel in Urine Observa Value Referen Units Interpr Notes Date tion ce etation Range Appeara CLEAR CLEAR No No No Nov 5 nce of informa informa informa 2017 Urine tion in tion in tion in 4:00 AM source source source data data data Bilirub NEGATIV NEG No No No Nov 5 in E informa informa informa 2017 [Presen tion in tion in tion in 4:00 AM ce] in source source source Urine data data data by Test strip Erythro NEGATIV NEG No No No Nov 5 cytes E informa informa informa 2016 [Presen tion in tion in tion in 4:00 AM ce] in source source source Urine data data data Color YELLOW YELLOW No No No Nov 5 of informa informa informa 2017 Urine tion in tion in tion in 4:00 AM source source source data data data Glucose NEG No No No Nov 5 [Mass/vol informati informati informati 2016 4:00 ume] in on in on in on in AM Urine by source source source Test data data data strip Ketones NEGATIV NEG mg/dL No No Nov 5 E informa informa 2016 [Presen tion in tion in 4:00 AM ce] in source source Urine data data by Automat ed test strip Mucus NEGATIV NEG No No No Nov 5 [Presen E informa informa informa 2016 ce] in tion in tion in tion in 4:00 AM Urine source source source sedimen data data data t by Light microsc opy Nitrite NEGATIV NEG No No No Nov 5 E informa informa informa 2016 [Presen tion in tion in tion in 4:00 AM ce] in source source source Urine data data data by Test strip pH of 5.0 - 8.5 No Normal No Nov 5 Urine informati informati 2016 4:00 on in on in AM source source data data Protein NEG mg/dL High No Nov 5 [Mass/vol informati 2016 4:00 ume] in on in AM Urine by source Automated data test strip Specific 1.005 - No Normal No Nov 5 gravity 1.030 informati informati 2016 4:00 of Urine on in on in AM source source data data Urobili 0.2 NEG E.U./dL No No Nov 5 nogen informa informa 2016 [Presen tion in tion in 4:00 AM ce] in source source Urine data data by Test strip CBC W Auto Differential panel in Blood Observa Value Referen Units Interpr Notes Date tion ce etation Range Basophils 0 - 0.2 K/MM3 Normal No Nov 5 informati 2016 4:00 [#/volume on in AM ] in source Blood by data Automated count Basophils 0.1 - 2.0 % Normal No Nov 5 /100 informati 2016 4:00 leukocyte on in AM s in source Blood by data Automated count Eosinophi 0.0 - 0.4 K/mm3 Normal No Nov 5 ls informati 2016 4:00 [#/volume on in AM ] in source Blood by data Automated count Eosinophi 0.1 - % Normal No Nov 5 ls/100 12.0 informati 2016 4:00 leukocyte on in AM s in source Blood by data Automated count Granulocy 1.8 - 7.8 K/mm3 High No Nov 5 lauryn informati 2016 4:00 [#/volume on in AM ] in source Blood by data Automated count Granulocy 37.0 - % Normal No Nov 5 lauryn/100 80.0 informati 2016 4:00 leukocyte on in AM s in source Blood by data Automated count Hematocri 37.0 - % Low No Nov 5 t [Volume 47.0 informati 2016 4:00 on in AM Fraction] source of Blood data Hemoglobi 12.2 - g/dL Low No Nov 5 n 16.2 informati 2016 4:00 [Mass/vol on in AM ume] in source Blood data Lymphocyt 0.7 - 4.5 K/mm3 High No Nov 5 es informati 2017 4:00 [#/volume on in AM ] in source Unspecifi data ed specimen by Automated count Lymphocyt 10 - 50.0 % Normal No Nov 5 es informati 2016 4:00 [#/volume on in AM ] in source Unspecifi data ed specimen by Automated count Erythrocy 27 - 31.2 pg Low No Nov 5 te mean informati 2017 4:00 corpuscul on in AM ar source hemoglobi data n [Entitic mass] Erythrocy 31.8 - g/dl Low No Nov 5 te mean 35.4 informati 2017 4:00 corpuscul on in AM ar source hemoglobi data n concentra tion [Mass/vol ume] by Automated count Erythrocy 82.2 - fl Low No Nov 5 te mean 97.8 informati 2016 4:00 corpuscul on in AM ar volume source [Entitic data volume] by Automated count Monocytes 0.1 - 1.0 K/mm3 High No Nov 5 informati 2016 4:00 [#/volume on in AM ] in source Blood by data Automated count Monocytes 1.7 - 9.3 % Normal No Feb 5 /100 informati 2016 4:00 leukocyte on in AM s in source Blood by data Automated count Platelet 7.4 - fl Normal No Feb 5 mean 10.4 informati 2016 4:00 volume on in AM [Entitic source volume] data in Blood by Automated count Platelets 142 - 424 K/mm3 High No Feb 17 informati 2016 4:00 [#/volume on in AM ] in source Blood data Erythrocy 4.2 - 5.4 M/mm3 Normal No Feb 5 lauryn informati 2016 4:00 [#/volume on in AM ] in source Amniotic data fluid Erythrocy 11.5 - % High No Feb 17 te 17.5 informati 2016 4:00 distribut on in AM ion width source [Entitic data volume] by Automated count Leukocyte 4.8 - K/MM3 High No Feb 5 s 10.8 informati 2016 4:00 [#/volume on in AM ] in source Blood data Gas panel in Arterial blood Observa Value [...] Oxygen 90 - 100 % Normal No Feb 04 saturatio informati 2017 5:10 n.calcula on in AM eber from source oxygen data partial pressure in Arterial blood Carbon 23 - 27 MMOL/L Low No Feb 04 dioxide, informati 2017 5:10 total on in AM [Moles/vo source lume] in data Arterial blood TIDAL 400 No No No No Feb 04 VOLUME informa informa informa informa 2017 tion [...] etation Range Base -2.4-+2.3 MMOL/L Low No Jan 23 excess in informati 2017 Arterial on in 12:57 AM blood source data Arteria Y No No No No Feb 04 l informa informa informa informa 2017 patency tion in tion in tion in tion in 12:57 Wrist source source source source AM artery data data data data --pre arteria l punctur e Bicarbona 22.0 - MMOL/L Low No Feb 04 te 26.0 informati 2016 [Moles/vo on in 12:57 AM lume] in [...] blood LTS CALLED TO: DR GAMINO 02/04/17 005Quang Grier pH of 7.35 - MMOL/L Low alert Feb 04 Arterial 7.45 2017 blood CRITICAL 12:57 AM RESULTS RESU LTS CALLED TO: DR GAMINO 02/04/17 005Quang Grier Oxygen 80 - 100 MMHG Low No [...] 3.6 ng/mL High No Feb 03 kinase.MB inform2016 on in 11:05 PM [Mass/vol source ume] in data Serum or Plasma Creatine 26 - 192 U/L High No Feb 03 kinase informati 2016 [Enzymati on in 11:05 PM c source activity/ data volume] in Serum or Plasma Troponin 0.00 - ng/mL High 0.04 - Jan 22 I.cardiac 0.06 0.49 IS 2017 AN [...] Lactate 0.4 - 2.0 MMOL/L High An Feb 03 [Moles/vo elevated 2017 lume] in Lactic 11:05 PM Serum or Acid is Plasma suggestiv e of sepsis and shouldbe repeated within 6 hours of initial testing. Gas panel in Arterial blood Observa Value Referen Units Interpr Notes Date tion ce etation Range Base -2.4-+2.3 MMOL/L Low No Jan 22 excess in informati 2016 Arterial on in 11:04 PM blood source data Arteria Y No No No No Oct 22 l informa informa informa informa 2017 patency tion in tion in tion in tion in 11:04 Wrist source source source source PM artery data data data data --pre arteria l punctur e Bicarbona 22.0 - MMOL/L Low No Oct 22 te 26.0 informati 2016 [Moles/vo on in 11:04 PM lume] in source Arterial data blood Oxygen No No No No Jan 22 content informati informati informati informati 2017 in on in on in on in on in 11:04 PM Arterial source source source source blood data data data data Carbon 35.0 - MMHG Normal No Feb 03 dioxide 45.0 informati 2016 [Partial on in 11:04 PM pressure] source in data Arterial blood pH of 7.35 - MMOL/L Low No Feb 03 Arterial 7.45 informati 2016 blood on in 11:04 PM source data Oxygen 80 - 100 MMHG Low No Feb 03 [Partial informati 2016 pressure] on in 11:04 PM in source Arterial data blood Oxygen 90 - 100 % Normal No Feb 03 saturatio informati 2017 n.calcula on in 11:04 [...] pg/mL High No Feb 03 tic informati 2017 8:50 peptide B on in PM source [Mass/vol data ume] in Serum or Plasma Cardiac enzymes Observa Value Referen Units Interpr Notes Date tion ce etation Range Creatine 0 - 4.0 U/L Normal No Feb 03 kinase.MB informati 2017 8:50 /Creatine on in PM source kinase.to data leatha [Ratio] in Serum or Plasma Creatine 0.0 - 3.6 ng/mL High No Feb 03 kinase.MB informati 2017 8:50 on in PM [Mass/vol source ume] in data Serum or Plasma Creatine 26 - 192 U/L High No Feb 03 kinase informati 2017 8:50 [Enzymati on in PM c source activity/ data volume] in Serum or Plasma Troponin 0.00 - ng/mL High 0.04 - Jan 22 I.cardiac 0.06 0.49 IS 2017 8:50 AN [...] 1.1 - 1.8 No Low No Jan 22 lobulin informati informati 2017 8:50 [Mass on in on in PM ratio] in source source Serum or data data Plasma Albumin 3.4 - 5.0 gm/dL Normal No Feb 03 [Mass/vol informati 2017 8:50 ume] in on in PM Serum or source Plasma data Alkaline 46 - 116 U/L High No Feb 03 phosphata informati 2017 8:50 se on in PM [Enzymati source c data activity/ volume] in Serum or Plasma Bilirubin 0.2 - 1.0 mg/dL Normal No Feb 03 .total informati 2016 8:50 [Mass/vol on in PM ume] in source Serum or data Plasma Urea 7 - 18 mg/dL High No Feb 03 nitrogen informati 2017 8:50 [Mass/vol on in PM ume] in source Serum or data Plasma Calcium 8.5 - mg/dL Normal No Feb 03 [Mass/vol 10.1 informati 2017 8:50 ume] in on in PM Serum or source Plasma data Chloride 98 - 107 mmoL/L Low No Feb 03 [Moles/vo informati 2016 8:50 lume] in on in PM Serum or source Plasma data Carbon 21.0 - mmoL/L Normal No Feb 03 dioxide, 32.0 informati 2017 8:50 total on in PM [Moles/vo source lume] in data Serum or Plasma Creatinin 0.55 - mg/dL High No Jan 22 e 1.02 informati 2016 8:50 [Mass/vol on in PM ume] in source Serum or data Plasma Creatinin 50 - 200 ML/MIN Normal No Jan 22 e renal informati 2017 8:50 clearance on in PM source predicted data by Cockcroft -Gault formula Estimated 59- ML/MIN Low REFERENCE Oct 22 RANGE: 2017 8:50 glomerula >60 PM r ML/MIN/1. filtratio 73 SQUARE n rate METERSIf (GF this patient is -A merican, then multiply theresult by 1.210. Globulin 1.3 - 3.2 gm/dL High No Oct 22 [Mass/vol informati 2016 8:50 ume] in on in PM Serum source data Glucose 74 - 106 mg/dL High No Feb 03 [Mass/vol informati 2016 8:50 ume] in on in PM Serum or source Plasma data Potassium 3.5 - 5.1 mmoL/L Normal No Feb 03 informati 2016 8:50 [Moles/vo on in PM lume] in source Serum or data Plasma Sodium 136 - 145 mmoL/L Low No Feb 03 [Moles/vo informati 2016 8:50 lume] in on in PM Serum or source Plasma data Aspartate 15 - 37 U/L High No Feb 03 informati 2016 8:50 aminotran on in PM sferase source [Enzymati data c activity/ volume] in Serum or Plasma Alanine 12 - 78 U/L High No Feb 03 aminotran informati 2016 8:50 sferase on in PM [Enzymati source c data activity/ volume] in Serum or Plasma Protein 6.4 - 8.2 gm/dL High No Feb 03 [Mass/vol informati 2016 8:50 [...] High No Feb 03 in time 11.8 inform2016 8:50 (PT) in on in PM Platelet [...] 2017 8:50 thrombpla D. PM stin time COLEMIRE (aPTT) RN in 02/03/17 Platelet 2138 poor Yu,Rosibel plasma by hn Coagulati on assay Lactate [...] 0 - 0.2 K/MM3 Normal No Feb [id number] 8:50 [#/volume on in PM ] in [...] No Feb 03 te mean 35.4 informati 2017 8:50 corpuscul on in PM ar source hemoglobi data n concentra tion [Mass/vol ume] by Automated count Erythrocy 82.2 - fl Low No Feb 03 te mean 97.8 informati 2017 8:50 corpuscul on in PM ar volume source [Entitic data volume] by Automated count Monocytes 0.1 - 1.0 K/mm3 Normal No Feb 03 informati 2016 8:50 [#/volume on in PM ] in source Blood by data Automated count Monocytes 1.7 - 9.3 % Normal No Feb 03 informati 2017 8:50 leukocyte on in PM s in source Blood by data Automated count Platelet 7.4 - fl Normal No Feb 03 mean 10.4 informati 2016 8:50 volume on in PM [Entitic source volume] data in Blood by Automated count Platelets 142 - 424 K/mm3 No No Feb 03 informati informati 2017 8:50 [#/volume on in on in PM ] in source source Blood data data Erythrocy 4.2 - 5.4 M/mm3 High No Feb 03 lauryn informati 2016 8:50 [#/volume on in PM ] in source Amniotic data fluid Erythrocy 11.5 - % High No Feb 03 te 17.5 informati 2017 8:50 distribut on in PM ion width source [Entitic data volume] by Automated count Leukocyte 4.8 - K/MM3 High No Feb 03 s 10.8 informati 2017 8:50 [#/volume on in PM [...] 1.1 - 1.8 No Low No Jan 19 lobulin informati informati 2017 7:00 [Mass on in on in AM [...] 0 - 0.2 K/MM3 Normal No Jan [id number] 7:00 [#/volume on in AM ] in source Blood by data Automated count Basophils 0.1 - 2.0 % Normal No Jan 31 inform2016 7:00 leukocyte on in AM s in source Blood by data Automated count Eosinophi 0.0 - 0.4 K/mm3 Normal No Jan 31 ls ati 2016 7:00 [#/volume on in AM ] [...] % Normal No Jan 31 lauryn/100 80.0 inform2016 7:00 leukocyte on in AM s in [...] 142 - 424 K/mm3 Normal No Jan 19 informati 2016 7:00 [...] mg/dl High No Jan 30 [Mass/vol informati 2017 8:32 ume] in on in PM Capillary source blood by data Glucomete r Glucose [Mass/volume] in Capillary blood by Glucometer Observa Value Referen Units Interpr Notes Date ti ce etation Range Glucose 70 - 110 mg/dl High No Jan 18 [Mass/vol informati 2016 5:07 ume] in on [...] Interpr Notes Date ti ce etation Range Collected by nurse? Y Hold specimen in OE? N Bacteri YEAST No No No No Jan 30 a ISOLATE informa informa informa informa 2017 identif D. SENT tion in tion in tion in tion in 4:05 AM ied in TO source source source source Urine [facility] data data data data by FOR ID Culture ON 7. Bacteri Yeast No No No No Jan 30 a informa informa informa informa 2017 identif tion in tion in tion in [...] 70 - 110 mg/dl Normal No Jan 17 [Mass/vol informati 2016 5:11 ume] in on [...] - 0.2 K/MM3 Normal No Jan 29 inform2016 9:20 [#/volume on in AM ] in source Blood by data Automated count Basophils 0.1 - 2.0 % Normal No Jan 29 /100 informati 2017 9:20 leukocyte on in AM [...] K/mm3 High No Jan 29 lauryn informati 2017 9:20 [#/volume on in AM [...] 1.7 - 9.3 % Normal No Jan 17 /100 informati 2016 9:20 leukocyte on [...] Jan 29 smear informa informa informa informa 2017 finding tion in tion in tion in tion in 9:20 AM source source source source [Identi data data data data fier] in Blood by Light microsc opy Monocytes 2 - 9 % Normal No Jan 17 /100 informati 2017 9:20 leukocyte on in AM [...] mg/dL High No Jan 29 nitrogen informati 2016 9:20 [Mass/vol on in AM ume] in source Serum or data Plasma Calcium 8.5 - mg/dL Normal No Jan 29 [Mass/vol 10.1 informati 2016 9:20 ume] in on in AM Serum or source Plasma data Chloride 98 - 107 mmoL/L Normal No Jan 29 [Moles/vo informati 2016 9:20 lume] in on in AM Serum or source Plasma data Carbon 21.0 - mmoL/L Normal No Jan 29 dioxide, 32.0 informati 2016 9:20 total on in AM [Moles/vo source lume] in data Serum or Plasma Creatinin 0.55 - mg/dL High No Jan 29 e 1.02 informati 2016 9:20 [Mass/vol on in AM ume] in source Serum or data Plasma Creatinin 50 - 200 ML/MIN No No Jan 29 e renal informati informati 2016 9:20 clearance on in on in AM source source predicted data data by Cockcroft -Gault formula Estimated 59- ML/MIN Low REFERENCE Jan 29 RANGE: 2016 9:20 glomerula >60 AM r [...] No Jan 29 mine E informa informa 2017 [Presen tion in tion in 4:44 AM [...] mg/dl Normal No Jan 28 [Mass/vol informati 2017 8:38 ume] in on in PM Capillary source blood by data Glucomete r Glucose [Mass/volume] in Capillary blood by Glucometer Observa Value Referen Units Interpr Notes Date tion ce etation Range Glucose 70 - 110 mg/dl Normal No Oct 16 [Mass/vol informati 2017 4:57 ume] in on in PM Capillary source blood by data Glucomete r Glucose [Mass/volume] in Capillary blood by Glucometer Observa Value Referen Units Interpr Notes Date tion ce etation Range Glucose 70 - 110 mg/dl Normal No Oct 16 [Mass/vol informati 2016 ume] in on in 11:30 AM Capillary source blood by data Glucomete r Gas panel in Arterial blood Observa Value Referen Units Interpr Notes Date ti ce etation Range Base -2.4-+2.3 MMOL/L High No Oct 16 excess in informati 2016 8:00 Arterial on in AM blood source data Arteria PATIENT No No No No Oct 16 l UNABLE informa informa informa informa 2016 patency tion in tion in tion in tion in 8:00 AM Wrist source source source source artery data data data data --pre arteria l punctur e Bicarbona 22.0 - MMOL/L High No Oct 16 te 26.0 informati 2016 8:00 [Moles/vo on in AM lume] in source Arterial data blood Carbon 35.0 - MMHG High Oct 16 dioxide 45.0 2016 8:00 [Partial CRITICAL AM pressure] RESULTS in Arterial RESU blood LTS CALLED TO: 01/28/17 0806 Sophia on,Gisella pH of 7.35 - MMOL/L Low No Oct 16 Arterial 7.45 informati 2016 8:00 blood on in AM source data Oxygen 80 - 100 MMHG Low No Oct 16 [Partial informati 2017 8:00 pressure] on in AM in source Arterial data blood Oxygen 90 - 100 % Normal No Oct 16 saturatio informati 2017 8:00 n.calcula on in AM eber from source oxygen data partial pressure in Arterial blood SOURCE RIGHT No No No No Oct 16 BRACHIA informa informa informa informa 2017 L tion in tion in tion in tion in 8:00 AM source source source source data data data data Carbon 23 - 27 MMOL/L High No Oct 16 dioxide, informati 2016 8:00 total on in AM [Moles/vo source lume] in data Arterial blood CBC W Auto Differential panel in Blood Observa Value Referen Units Interpr Notes Date tion ce etation Range 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 SLICING 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 TENDER: 0600 Basophils 0 - 0.2 K/MM3 Normal No Jan 16 informati 2016 6:17 [#/volume on in AM ] in source Blood by data Automated count Basophils 0.1 - 2.0 % Normal No Jan 16 /100 informati 2016 6:17 leukocyte on in AM [...] No Jan 28 te mean 35.4 informati 2016 6:17 corpuscul on in AM ar source hemoglobi data n concentra tion [Mass/vol ume] by Automated count Erythrocy 82.2 - fl Low No Oct 16 te mean 97.8 informati 2017 6:17 corpuscul [...] Date tion ce etation Range COMMENTS TO ROLL SLICING MACHINE TENDER: 0600 Albumin/G 1.1 - 1.8 No Low [...] Normal No Oct 16 dioxide, 32.0 informati 2016 6:17 total on in AM [Moles/vo source [...] Alanine 12 - 78 U/L No No Oct 16 aminotran informati informati 2017 6:17 sferase on in on in AM [Enzymati source source c data data activity/ volume] in Serum or Plasma Protein 6.4 - 8.2 gm/dL Normal No Oct 16 [Mass/vol informati 2017 [...] 7 - 18 mg/dL High No Jan 27 nitrogen informati 2017 5:35 [Mass/vol on in [...] mg/dL High No Jan 27 e 1.02 inform2016 5:35 [Mass/vol on in AM ume] in [...] 145 mmoL/L Normal No Jan 27 [Moles/vo 2016 5:35 lume] in on in AM [...] 0.4 K/mm3 Normal No Jan 27 ls ati 2016 5:35 [#/volume on in AM ] [...] No Jan 27 t [Volume 47.0 informati 2017 5:35 on in AM Fraction] source of Blood data Hemoglobi 12.2 - g/dL Low No Jan 15 n 16.2 informati 2016 5:35 [Mass/vol on in AM ume] in source Blood data Lymphocyt 0.7 - 4.5 K/mm3 Normal No Jan 15 es informati 2016 5:35 [#/volume on in AM ] in source Unspecifi data ed specimen by Automated count Lymphocyt 10 - 50.0 % Normal No Jan 15 es informati 2016 5:35 [#/volume on in AM ] in source Unspecifi data ed specimen by Automated count Erythrocy 27 - 31.2 pg Low No Jan 15 te mean informati 2016 5:35 corpuscul on [...] % Normal No Jan 15 /100 informati 2017 5:35 leukocyte on in AM s in [...] Low No Jan 14 lobulin informati informati 2017 1:15 [Mass on in on in PM ratio] in source source Serum or data data Plasma Albumin 3.4 - 5.0 gm/dL Low No Jan 14 [Mass/vol informati 2016 1:15 ume] in on in PM Serum or source Plasma data Alkaline 46 - 116 U/L High No Jan 14 phosphata informati 2017 1:15 se on in PM [Enzymati source c data activity/ volume] in Serum or Plasma Bilirubin 0.2 - 1.0 mg/dL Normal No Jan 14 .total informati 2016 1:15 [Mass/vol on in PM ume] in source Serum or data Plasma Urea 7 - 18 mg/dL High No Jan 14 nitrogen informati 2017 1:15 [Mass/vol on in PM ume] in source Serum or data Plasma Calcium 8.5 - mg/dL Normal No Jan 14 [Mass/vol 10.1 informati 2017 1:15 ume] in on in PM Serum or source Plasma data Chloride 98 - 107 mmoL/L Normal No Jan 14 [Moles/vo informati 2017 1:15 lume] in on in PM Serum or source Plasma data Carbon 21.0 - mmoL/L High No Jan 14 dioxide, 32.0 informati 2017 1:15 total on in PM [Moles/vo source lume] in data Serum or Plasma Creatinin 0.55 - mg/dL High No Jan 14 e 1.02 informati 2016 1:15 [Mass/vol on in PM ume] in source Serum or data Plasma Creatinin 50 - 200 ML/MIN Normal No Jan 14 e renal informati 2016 1:15 clearance on in PM source predicted data by Cockcroft -Gault formula Estimated 59- ML/MIN Low REFERENCE Oct 14 RANGE: 2016 1:15 glomerula >60 PM r ML/MIN/1. filtratio [...] 78 U/L Normal No Jan 14 aminotran inform2016 1:15 sferase on in PM [Enzymati source [...] - 37 U/L Low No Sep 15 2016 aminotran on in 10:20 PM sferase source [Enzymati data c activity/ volume] in Serum or Plasma Alanine 12 - 78 U/L Normal No Sep 15 aminotran inform2016 sferase on in 10:20 PM [Enzymati source c data activity/ volume] in Serum or Plasma Protein 6.4 - 8.2 gm/dL Normal No Sep 15 [Mass/vol inform2016 ume] in on in 10:20 PM Serum or source Plasma data CBC W Auto Differential panel in Blood Observa Value Referen Units Interpr Notes Date tion ce etation Range Basophils 0 - 0.2 K/MM3 Normal No Sep 15 2016 [#/volume on [...] No Sep 15 t [Volume 47.0 informati 2016 on in 10:20 PM Fraction] source of [...] Low No Sep 15 te mean 35.4 inform2016 corpuscul on in 10:20 PM ar [...] 9.3 % Normal No Sep 15 /100 inform2016 leukocyte on in 10:20 PM s in source Blood by data Automated count Platelet 7.4 - fl Low No Sep 15 mean 10.4 inform2016 volume on in 10:20 PM [Entitic source volume] data in Blood by Automated count Platelets 142 - 424 K/mm3 Normal No Sep 15 2016 [#/volume on in 10:20 PM ] in source Blood data Erythrocy 4.2 - 5.4 M/mm3 Normal No Sep 15 lauryn inform2016 [#/volume on in 10:20 PM ] in source Amniotic data fluid Erythrocy 11.5 - % Normal No Sep 15 te 17.5 inform2016 distribut on in 10:20 PM ion width source [Entitic data volume] by Automated count Leukocyte 4.8 - K/MM3 Normal No Sep 15 s 10.8 inform2016 [#/volume on in 10:20 PM ] [...] K/mm3 Normal No Sep 8 ls informati 2017 7:06 [#/volume on in AM [...] Normal No Sep 8 s 10.8 informati 2017 7:06 [#/volume on in AM [...] - 5.1 mmoL/L Normal No Dec 04 informati 2017 1:25 [Moles/vo on in PM lume] in [...] 100 pg/mL High No Dec 04 tic informati 2016 1:25 peptide B on in PM source [Mass/vol data ume] in Serum or Plasma CBC W Auto Differential panel in Blood Observa Value Referen Units Interpr Notes Date tion ce etation Range Basophils 0 - 0.2 K/MM3 Normal No Dec 04 informati 2017 1:25 [...] K/mm3 High No Dec 04 lauryn informati 2017 1:25 [...] K/mm3 Normal No Dec 04 es informati 2016 [...] 59- ML/MIN Low REFERENCE Sep 17 RANGE: 2016 glomerula >60 11:34 AM r ML/MIN/1. filtratio [...] mg/dL Normal No August 30 [Mass/vol informati 2017 9:30 ume] in on in AM Serum or source Plasma data Potassium 3.5 - 5.1 mmoL/L Normal No August 30 informati 2016 9:30 [Brenda/vo on in AM lume] in source Serum or data Plasma Sodium 136 - 145 mmoL/L Normal No August 30 [Moles/vo informati 2017 9:30 lume] in on in AM Serum or source Plasma data
--- OUTSIDE RECORDS SUMMARY | 2017-03-03 01:12 | External Medical Summary Rpt ---
Author Author [employer] Sharma, DWIGHT C[employer] Organization [employer] Address Unknown Phone Unavailable [...] IS Plasma CONSIDERE D LEGALLYIN TOXICATED UNDER [facility] LAW. 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
--- OUTSIDE RECORDS SUMMARY | 2017-03-03 03:31 | External Medical Summary Rpt | CCD ---
Author Author , DWIGHT QUINTANILLA Address Unknown Phone Care Team Providers Care Seat Scooper Machine Name Role Phone Leanne Shaikh MD, Unavailable Unavailable Leanne Blanca MD, Unavailable Unavailable Eduin Blanca MD Purpose Continuity of Care Document - 05-28-2012 through 2016 Problems Code Diagnosis DOS Provider Status 162.9 276.8 Hypokalemia [facility] 416.9 Cor [place] [facility] [place] [id number] Gastritis [facility] 585.9 [id number] Pulmonary [place] [facility] [place] [id number] Chronic [facility] E66.9 OBESITY, UNSPECIFIED E86.0 DEHYDRATION F41.9 ANXIETY [...] RO 07 -0 SE 90 6- Lo LA 07 20 ng DE 32 13 er [...] 5 ti MG ve TA BL ET LA 11 05 1 No RA 52 -0 [...] TF 07 -0 OR 90 5- Lo LA 17 20 ng N 22 13 er [...] 1 Ac TA ti BL ve ET DC 00 02 2 No OM 64 -1 [...] RO 40 -1 SE 96 4- Lo LA 10 20 ng DE 20 13 er [...] TF 07 -1 OR 90 4- Lo LA 17 20 ng N 22 13 er [...] 0M ti G ve Ta bl et DC 00 02 3 No OT 00 -1 [...] t Range on CBC w auto diff (03-03-2017 00:47) Automat = 0.1 0-0.2 complet ed 017 K/MM3 ed blood 00:47 basophi l count (count/ vo Baso % = 0.4 % 0.1-2.0 complet 017 ed 00:47 Automat = 0.3 0.0-0.4 complet ed 017 K/mm3 ed blood 00:47 eosinop hil count Automat = 2.4 % 0.1-12. complet ed 017 0 ed blood 00:47 eosinop hils/10 0 leukocy t Blood = 6.1 1.8-7.8 complet granulo 017 K/mm3 ed cytes 00:47 automat ed count (numb Granulo = 57.5 37.0-80 complet cyte 017 % .0 ed percent 00:47 age Blood = 36.7 37.0-47 complet hematoc 017 % .0 ed rit 00:47 (volume fractio n) Blood = 10.8 12.2-16 complet hemoglo 017 g/dL .2 ed bin 00:47 measure ment (mass/v olum Absolut = 3.3 0.7-4.5 complet e 017 K/mm3 ed lymphoc 00:47 yte count Lymphoc = 31.6 10-50.0 complet yte 017 % ed count, 00:47 blood, automat ed Mean = 22.4 27-31.2 complet corpusc 017 pg ed ular 00:47 hemoglo bin ([facility]) determ Automat = 29.3 31.8-35 complet ed 017 g/dl .4 ed erythro 00:47 cyte mean corpusc ular h Automat 11-19-2 = 76.3 82.2-97 complet ed 017 fl .8 ed erythro 00:47 cyte mean corpusc ular v Absolut = 0.9 0.1-1.0 complet e 017 K/mm3 ed monocyt 00:47 e count [place] % = 8.1 % 1.7-9.3 complet 017 ed 00:47 Automat = 7.3 7.4-10. complet ed 017 fl 4 ed blood 00:47 platele t mean volume emmy Blood = 295 142-424 complet platele 017 K/mm3 ed t count 00:47 Red = 4.81 4.2-5.4 complet blood 017 M/mm3 ed cell 00:47 count Automat = 18.6 11.5-17 complet ed 017 % .5 ed erythro 00:47 cyte distrib ution width Blood = 10.6 4.8-10. complet leukocy 017 K/MM3 8 ed lauryn 00:47 count (number /volume ) Thyroxine (03-03-2017 00:47) Thyroxi = 6.5 4.7-13. complet ne 017 ug/dl 3 ed 00:47 Serum or plasma thyroid stimulating horm (03-03-2017 00:47) Serum 03-03-2 = 6.91 0.358-3 complet or 017 uIU/ml .740 ed plasma 00:47 thyroid stimula ting horm Brain natriuretic peptide (03-03-2017 00:47) Brain 03-03- = 481 0-100 complet natriur 017 pg/mL ed etic 00:47 peptide Cardiac enzymes (03-03-2017 00:47) Serum 2 = 5.1 0-4.0 complet or 017 U/L ed plasma 00:47 creatin e kinase MB (CK-M Serum = 2.4 0.0-3.6 complet or 017 ng/mL ed plasma 00:47 creatin e kinase MB measu Serum = 47 26-192 complet or 017 U/L ed plasma 00:47 creatin e kinase measure m Serum = 0.06 0.00-0. complet or 017 ng/mL 06 ed plasma 00:47 troponi n i.cardi ac measu Comment: 0.04 - 0.49 IS AN INDETERMINANT ZONE Comment: And can be consistent with the following diseases: Comment: Comment: Trauma Critically ill patients Richardson >30% TBSA Comment: CHF Hypothyroidism Amyloidosis Comment: Hypertension Myocarditis Sepsis Comment: Hypotension Rhabdomyolysis Vital exhaust. Comment: Postop surgery Pulmonary embolism CVA Comment: Renal failure Acute neurological disease Atrial fib. Comprehensive metabolic panel (03-03-2017 00:47) Serum 11-19-2 = 0.7 1.1-1.8 complet or 017 ed plasma 00:47 albumin /globul in mass ra Serum 03-03-2 = 2.8 3.4-5.0 complet or 017 gm/dL ed plasma 00:47 albumin measure ment (mas Serum 2 = 159 46-116 complet or 017 U/L ed plasma 00:47 alkalin e phospha tase emmy Serum 03-03-2 = 0.4 0.2-1.0 complet or 017 mg/dL ed plasma 00:47 total bilirub in measure m Serum 03-03-2 = 28 7-18 complet or 017 mg/dL ed plasma 00:47 urea nitroge n measure men Serum 03-03-2 = 8.8 8.5-10. complet or 017 mg/dL 1 ed plasma 00:47 calcium measure ment (mas Serum 2 = 100 98-107 complet or 017 mmoL/L ed plasma 00:47 chlorid e measure ment (mo Carbon 03-03-2 = 28 21.0-32 complet dioxide 017 mmoL/L .0 ed 00:47 measure ment Serum 19-2 = 1.1 0.55-1. complet or 017 mg/dL 02 ed plasma 00:47 creatin ine measure ment ( Estimat 03-03-2 = 74 50-200 complet ion of 017 ML/MIN ed creatin 00:47 ine renal clearan ce Estimat 03-03-2 = 50 59- complet ed 017 ML/MIN ed glomeru 00:47 lar filtrat ion rate (GF Comment: REFERENCE RANGE: >60 ML/MIN/1.73 SQUARE METERS Comment: If this patient is -[place]aur[place], then multiply the Comment: result by 1.210. Serum 11-19-2 = 4.1 1.3-3.2 complet globuli 017 gm/dL ed n 00:47 measure ment (mass/v olume) Serum 03-03-2 = 105 74-106 complet or 017 mg/dL ed plasma 00:47 glucose measure ment (mas Serum 2 = 4.7 3.5-5.1 complet potassi 017 mmoL/L ed um 00:47 measure ment Serum 2 = 132 136-145 complet sodium 017 mmoL/L ed measure 00:47 ment Serum 2 = 36 15-37 complet or 017 U/L ed plasma 00:47 asparta te aminotr ansfera ALT = 83 12-78 complet (SGPT) 017 U/L ed ser/yuli 00:47 s Protein = 6.9 6.4-8.2 complet total 017 gm/dL ed ser/yuli 00:47 s Comprehensive metabolic panel (02-25-2017 15:06) Serum 02-25-2 = 0.9 1.1-1.8 complet or 017 ed plasma 15:06 albumin /globul in mass ra Serum = 3.0 3.4-5.0 complet or 017 gm/dL ed plasma 15:06 albumin measure ment (mas Serum = 157 46-116 complet or 017 U/L ed plasma 15:06 alkalin e phospha tase emmy Serum = 0.6 0.2-1.0 complet or 017 mg/dL ed plasma 15:06 total bilirub in measure m Serum = 49 7-18 complet or 017 mg/dL ed plasma 15:06 urea nitroge n measure men Serum 2 = 8.7 8.5-10. complet or 017 mg/dL 1 ed plasma 15:06 calcium measure ment (mas Serum = 100 98-107 complet or 017 mmoL/L ed plasma 15:06 chlorid e measure ment (mo Carbon = 22 21.0-32 complet dioxide 017 mmoL/L .0 ed 15:06 measure ment Serum 2 = 1.4 0.55-1. complet or 017 mg/dL 02 ed plasma 15:06 creatin ine measure ment ( Estimat = 38 59- complet ed 017 ML/MIN ed glomeru 15:06 lar filtrat ion rate (GF Comment: REFERENCE RANGE: >60 ML/MIN/1.73 SQUARE METERS Comment: If this patient is -[place], then multiply the Comment: result by 1.210. Serum 2 = 3.2 1.3-3.2 complet globuli 017 gm/dL ed n 15:06 measure ment (mass/v olume) Serum = 114 74-106 complet or 017 mg/dL ed plasma 15:06 glucose measure ment (mas Serum = 5.8 3.5-5.1 complet potassi 017 mmoL/L ed um 15:06 measure ment Serum = 134 136-145 complet sodium 017 mmoL/L ed measure 15:06 ment Serum = 159 15-37 complet or 017 U/L ed plasma 15:06 asparta te aminotr ansfera ALT = 149 12-78 complet (SGPT) 017 U/L ed ser/yuli 15:06 s Protein = 6.2 6.4-8.2 complet total 017 gm/dL ed ser/yuli 15:06 s Serum or plasma thyroid stimulating horm (02-25-2017 15:06) Serum = 2.45 0.358-3 complet or 017 uIU/ml .740 ed plasma 15:06 thyroid stimula ting horm CBC w auto diff (02-17-2017 04:00) Automat = 0.1 0-0.2 complet ed 017 K/MM3 ed blood 04:00 basophi l count (count/ vo Baso % = 0.7 % 0.1-2.0 complet 017 ed 04:00 Automat = 0.3 0.0-0.4 complet ed 017 K/mm3 ed blood 04:00 eosinop hil count Automat = 2.2 % 0.1-12. complet ed 017 0 ed blood 04:00 eosinop hils/10 0 leukocy t Blood = 7.9 1.8-7.8 complet granulo 017 K/mm3 ed cytes 04:00 automat ed count (numb Granulo 11-05-2 = 56.0 37.0-80 complet cyte 017 % .0 ed percent 04:00 age Blood = 35.9 37.0-47 complet hematoc 017 % .0 ed rit 04:00 (volume fractio n) Blood = 10.8 12.2-16 complet hemoglo 017 g/dL .2 ed bin 04:00 measure ment (mass/v olum Absolut = 4.7 0.7-4.5 complet e 017 K/mm3 ed lymphoc 04:00 yte count Lymphoc = 33.1 10-50.0 complet yte 017 % ed count, 04:00 blood, automat ed Mean = 22.5 27-31.2 complet corpusc 017 pg ed ular 04:00 hemoglo bin ([facility]) determ Automat = 30.0 31.8-35 complet ed 017 g/dl .4 ed erythro 04:00 cyte mean corpusc ular h Automat = 75.0 82.2-97 complet ed 017 fl .8 ed erythro 04:00 cyte mean corpusc ular v Absolut = 1.1 0.1-1.0 complet e 017 K/mm3 ed monocyt 04:00 e count [place] % = 8.0 % 1.7-9.3 complet 017 ed 04:00 Automat = 7.7 7.4-10. complet ed 017 fl 4 ed blood 04:00 platele t mean volume emmy Blood = 457 142-424 complet platele 017 K/mm3 ed t count 04:00 Red = 4.78 4.2-5.4 complet blood 017 M/mm3 ed cell 04:00 count Automat = 18.4 11.5-17 complet ed 017 % .5 ed erythro 04:00 cyte distrib ution width Blood = 14.1 4.8-10. complet leukocy 017 K/MM3 8 ed lauryn 04:00 count (number /volume ) Urinalysis with microscopy (02-17-2017 04:00) Urine 3 - 5 O complet leukocy 017 wbc/hpf ed lauryn 04:00 count (number /volume ) Urine CLEAR CLEAR complet appeara 017 CLEAR L ed nce 04:00 determi nation Amorpho 2+ 2+ L NONE complet us 017 ed sedimen 04:00 t detecti on in urine se Bacteri 1+ 1+ L O complet a 017 ed detecti 04:00 on in urine sedimen t by Urine NEGATIV NEG complet total 017 E ed bilirub 04:00 NEGATIV in E L detecti on by test Urine NEGATIV NEG complet blood 017 E ed detecti 04:00 NEGATIV on E L Urine YELLOW YELLOW complet color 017 YELLOW ed 04:00 L Glucose = NEG complet ur 017 NEGATIV ed test 04:00 E strip Urine NEGATIV NEG complet ketones 017 E ed 04:00 NEGATIV detecti E L on by mg/dL automat ed lauryn Mucus NEGATIV NEG complet detecti 017 E ed on in 04:00 NEGATIV urine E L sedimen t by lig Urine NEGATIV NEG complet nitrite 017 E ed 04:00 NEGATIV detecti E L on by test strip Urine = 6.0 5.0-8.5 complet pH 017 ed 04:00 Urine 1 + NEG complet protein 017 mg/dL ed 04:00 measure ment by automat ed t Urine = 1.025 1.005-1 complet specifi 017 .030 ed c 04:00 gravity measure ment [place] 5-10 0-5 complet s 017 5-10 L ed epithel 04:00 #/hpf ial cells detecti on in u Urine 0.2 0.2 NEG complet urobili 017 L ed nogen 04:00 E.U./dL detecti on by test str Urine 9-analyte drugs of abuse screening (02-17-2017 04:00) Urine NEGATIV <1000 complet ampheta 017 E ed mine 04:00 NEGATIV screeni E L ng test ng/mL Urine = <200 complet barbitu 017 NEGATIV ed rates 04:00 E ng/mL measure ment by screen Serum = 200 complet or 017 NEGATIV ng/mL ed plasma 04:00 E ng/mL benzodi azepine s measure m Cocaine = <300 complet 017 NEGATIV ed measure 04:00 E ng/g ment (mass/v olume) Methado = <300 complet ne 017 NEGATIV ed measure 04:00 E ng/mL ment (mass/v olume) Opiates = <300 complet 017 POSITIV ed measure 04:00 E ng/mL ment (mass/v olume) Phencyc = <25 complet lidine 017 NEGATIV ed measure 04:00 E ng/mL ment (mass/v olume) 11-hydr NEGATIV <50 complet oxy 017 E ed delta-9 04:00 NEGATIV E L tetrahy ng/mL drocann abinol Acetaminophen level (mass/volume) (02-17-2017 04:00) Acetami = 0 10-30 complet nophen 017 ug/mL ed level 04:00 (mass/v olume) Serum or plasma ethanol measurement ([facility] (02-17-2017 04:00) Serum = 0 0-99 complet or 017 mg/dL ed plasma 04:00 ethanol measure ment ([facility] Comprehensive metabolic panel (02-17-2017 04:00) Protein = 7.3 6.4-8.2 complet total 017 gm/dL ed ser/yuli 04:00 s Serum = 0.7 1.1-1.8 complet or 017 ed plasma 04:00 albumin /globul in mass ra Serum = 3.0 3.4-5.0 complet or 017 gm/dL ed plasma 04:00 albumin measure ment ([facility] Serum = 134 46-116 complet or 017 U/L ed plasma 04:00 alkalin e phospha tase emmy Serum = 0.5 0.2-1.0 complet or 017 mg/dL ed plasma 04:00 total bilirub in measure m Serum = 54 7-18 complet or 017 mg/dL ed plasma 04:00 urea nitroge n measure men Serum = 9.4 8.5-10. complet or 017 mg/dL 1 ed plasma 04:00 calcium measure ment (mas Serum = 98 98-107 complet or 017 mmoL/L ed plasma 04:00 chlorid e measure ment (mo Carbon = 24 21.0-32 complet dioxide 017 mmoL/L .0 ed 04:00 measure ment Serum = 1.5 0.55-1. complet or 017 mg/dL 02 ed plasma 04:00 creatin ine measure ment ( Estimat = 60 50-200 complet ion of 017 ML/MIN ed creatin 04:00 ine renal clearan ce Estimat = 35 59- complet ed 017 ML/MIN ed glomeru 04:00 lar filtrat ion rate (GF Serum = 4.3 1.3-3.2 complet globuli 017 gm/dL ed n 04:00 measure ment (mass/v olume) Serum = 117 74-106 complet or 017 mg/dL ed plasma 04:00 glucose measure ment (mas Serum = 4.6 3.5-5.1 complet potassi 017 mmoL/L ed um 04:00 measure ment Serum = 136 136-145 complet sodium 017 mmoL/L ed measure 04:00 ment Serum = 37 15-37 complet or 017 U/L ed plasma 04:00 asparta te aminotr ansfera ALT = 52 12-78 complet (SGPT) 017 U/L ed ser/yuli 04:00 s Salicylate ser/plas (02-17-2017 04:00) Salicyl = 2.8 2.8-20. complet ate 017 mg/dL 0 ed ser/yuli 04:00 s Drugs identified in Urine by Screen method (02-17-2017 04:00) Ampheta NEGATIV <1000 complet mine 017 E ed [Presen 04:00 ce] in Urine by Screen method 11-Hydr [...] 017 mg/L ed PPP-mCn 12:55 FEU c Creat Ur-mCnc (02-13-2017 13:53) Creat 65 complet Ur-mCnc 017 mg/dL ed 13:53 Sodium Ur-sCnc (02-13-2017 13:53) Sodium < 20 complet Ur-sCnc 017 mmol/L ed 13:53 UUN Ur-mCnc (02-13-2017 13:53) UUN 499 complet Ur-mCnc 017 mg/dL ed 13:53 Vancomycin SerPl-mCnc (02-08-2017 05:26) Vancomy 17.8 0-40.0 complet diana 017 ug/mL ed SerPl-m 05:26 Cnc Magnesium SerPl-mCnc (02-08-2017 02:02) Magnesi 2.2 1.9-2.4 complet um 017 mg/dL ed SerPl-m 02:02 Cnc Potassium SerPl-sCnc (02-07-2017 03:13) Potassi 3.7 3.7-4.8 complet um 017 mmol/L ed SerPl-s 03:13 Cnc Magnesium SerPl-mCnc (02-07-2017 02:07) Magnesi 1.7 1.9-2.4 complet um 017 mg/dL ed SerPl-m 02:07 Cnc Phosphate SerPl-mCnc (02-07-2017 02:07) Phospha 2.9 2.5-4.5 complet te 017 mg/dL ed SerPl-m 02:07 Cnc Lactate Bld-sCnc (02-06-2017 02:03) Lactate 0.9 complet 017 mmol/L ed Bld-sCn 02:03 c Ca-I SerPl ISE-sCnc (02-06-2017 02:03) Ca-I 4.4 4.6-5.1 complet SerPl 017 mg/dL ed ISE-sCn 02:03 c Magnesium SerPl-mCnc (02-06-2017 02:03) Magnesi 1.9 1.9-2.4 complet um 017 mg/dL ed SerPl-m 02:03 Cnc Phosphate SerPl-mCnc (02-06-2017 02:03) Phospha 4.0 2.5-4.5 complet te 017 mg/dL ed SerPl-m 02:03 Cnc Mycobacterium XXX Ql Cult (02-05-2017 13:51) Bacteri [id number] complet a XXX 017 00 not ed Anaerob 13:51 isolate e+Aerob d e Cult (qualif ier value) SCT NM21 NO ACID FAST BACILLI ISOLATE D AT 3 WEEKS L Comment: not isolated (qualifier value) Mycobacterium XXX Ql Cult (02-05-2017 13:51) AFB, RCVD complet DIRECT 017 ORDER ed SPECIME 13:51 PROCESS N EXAM ED. L AFB, SUBM complet DIRECT 017 MODE OF ed SPECIME 13:51 N EXAM SUBMISS ION: L AFB, RAWSP complet DIRECT 017 RAW ed SPECIME 13:51 SPECIME N EXAM N L AFB, COLCON complet DIRECT 017 COLOR ed SPECIME 13:51 AND N EXAM CONSIST ENCY: L AFB, CLDY complet DIRECT 017 Cloudy ed SPECIME 13:51 L N EXAM AFB, SLBL complet DIRECT 017 Slightl ed SPECIME 13:51 y N EXAM bloody L AFB, LIQ complet DIRECT 017 LIQUID ed SPECIME 13:51 L N EXAM TUAN Prep XXX (02-05-2017 13:51) TUNA [id number] complet 017 03 ed 13:51 sample: fungus not isolate d (findin g) SCT NOFEO NO FUNGAL ELEMENT S OBSERVE D L HSV1+2 DNA XXX Ql PCR (02-05-2017 13:51) HSV1+2 DUP complet DNA XXX 017 DUPLICA ed Ql PCR 13:51 TE ORDER,C REDITED L Resp virus 12 Pnl XXX PCR (02-05-2017 13:51) BAL PCR [id number] complet RESULT 017 09 ed 13:51 negativ e (qualif ier value) SCT NEGRP NEGATIV E for all analyte s L Acid fast Stn XXX Ql (02-05-2017 13:51) ACID [id number] complet FAST 017 8 not ed STAIN 13:51 seen (qualif ier value) SCT NOAFB NO AFB SEEN L Fungus Tiss Cult (02-05-2017 13:51) SPECIME RCVD complet N 017 ORDER ed CONTAIN 13:51 PROCESS ER ED. L INFO: Bacteri [id number] complet a XXX 017 5 ed Anaerob 13:51 Sharmin e+Aerob e Cult albican s (organi sm) SCT CALB SHARMIN ALBICAN S L Bacteria Bronch Aerobe Cult (02-05-2017 13:51) SPECIME RCVD complet N 017 ORDER ed CONTAIN 13:51 PROCESS ER ED. L INFO: CC XXX LGRO complet VC-aCnc 017 LIGHT ed 13:51 GROWTH L Bacteri [id number] complet a XXX 017 5 ed Anaerob 13:51 Sharmin e+Aerob e Cult albican s (organi sm) SCT CALB SHARMIN ALBICAN S L Lactate Bld-sCnc (02-05-2017 02:08) Lactate 1.2 complet 017 mmol/L ed Bld-sCn 02:08 c Ca-I SerPl ISE-sCnc (02-05-2017 02:08) Ca-I 4.0 4.6-5.1 complet SerPl 017 mg/dL ed ISE-sCn 02:08 c Lactate Bld-sCnc (02-04-2017 16:50) Lactate 0.9 complet 017 mmol/L ed Bld-sCn 16:50 c Chloride Ur-sCnc (02-04-2017 14:09) Chlorid < 20 complet e 017 mmol/L ed Ur-sCnc 14:09 Creat Ur-mCnc (02-04-2017 14:09) Creat 103 complet Ur-mCnc 017 mg/dL ed 14:09 Sodium Ur-sCnc (02-04-2017 14:09) Sodium 24 complet Ur-sCnc 017 mmol/L ed 14:09 UUN Ur-mCnc (02-04-2017 14:09) UUN 587 complet Ur-mCnc 017 mg/dL ed 14:09 MDRO Wnd (02-04-2017 13:41) SPECIME RCVD complet N 017 ORDER ed CONTAIN 13:41 PROCESS ER ED. L INFO: CC XXX NOTAP complet VC-aCnc 017 NOT ed 13:41 APPLICA BLE L Bacteri DUP complet a XXX 017 DUPLICA ed Anaerob 13:41 TE e+Aerob ORDER,C e Cult REDITED L Bacteri ,REFER complet a XXX 017 TO ed Anaerob 13:41 ACCESSI e+Aerob ON e Cult [id number] FOR RESULTS T4 Free SerPl-mCnc (02-04-2017 09:39) T4 Free 1.2 0.8-1.7 complet 017 ng/dL ed SerPl-m 09:39 Cnc NT-proBNP SerPl-mCnc (02-04-2017 09:39) NT-proB [id number] 0-899 complet [employer] 017 pg/mL ed SerPl-m 09:39 Cnc TSH SerPl DL<=0.005 mIU/L-aCnc (02-04-2017 09:39) TSH 1.58 0.4-4.2 complet SerPl 017 uIU/mL ed DL<=0.0 09:39 05 mIU/L-a Cnc Resp virus 12 Pnl XXX PCR (02-04-2017 09:39) COMP [id number] complet RESP 017 09 ed PCR 09:39 negativ PANEL e RESULT: (qualif ier value) SCT NEGRP NEGATIV E for all analyte s L S pneum Ag Ur Ql (02-04-2017 09:39) STREP [id number] complet PNEUMO 017 09 ed AG 09:39 negativ RESULT e (qualif ier value) SCT NEGU NEGATIV E for Strepto coccus pneumon iae antigen . L STREP 02-04- (NOTE) complet PNEUMO 017 ed AG 09:39 RESULT STREP 02-04- REFEREN complet PNEUMO 017 CE ed AG 09:39 VALUE: RESULT NEGATIV E FOR STREPTO COCCUS PNEUMON IAE ANTIGEN . Legionella Ag Ur Ql (02-04-2017 09:39) RESULT [id number] complet LEGIONE 017 09 ed LLA 09:39 negativ ANTIGEN e (qualif ier value) SCT PNLEG NEGATIV E for Legione lla pneumop josé luis serogro up 1 antigen . L Bacteria XXX Anaerobe+Aerobe Cult (02-04-2017 09:39) SPECIME FANB complet N 017 AEROBIC ed CONTAIN 09:39 FAN ER AND INFO: ANAEROB IC BLOOD CULTURE BOTTLES L SPECIME [id number] complet N 017 03 ed CONTAIN 09:39 blood ER volume INFO: estimat ion (proced ure) SCT BVA BLOOD CULTURE VOLUME ACCEPTA BLE L Bacteri [id number] complet a XXX 017 06 No ed Anaerob 09:39 growth e+Aerob (qualif e Cult ier value) SCT NGB6 NO GROWTH DAY 5. L Bacteria Bro [place] Aerobe Cult (02-04-2017 09:30) SPECIME RCVD complet N 017 ORDER ed CONTAIN 09:30 PROCESS ER ED. L INFO: Bacteri [id number] complet a XXX 017 5 ed Anaerob 09:30 Sharmin e+Aerob e Cult albican s (organi sm) SCT CALB SHARMIN ALBICAN S L Bacteria XXX Anaerobe+Aerobe Cult (02-04-2017 07:17) SPECIME FANB complet N 017 AEROBIC ed CONTAIN 07:17 FAN ER AND INFO: ANAEROB IC BLOOD CULTURE BOTTLES L SPECIME [id number] complet N 017 03 ed CONTAIN 07:17 blood ER volume INFO: estimat ion (proced ure) SCT BVA BLOOD CULTURE VOLUME ACCEPTA BLE L Bacteri [id number] complet a XXX 017 06 No ed Anaerob 07:17 growth e+Aerob (qualif e Cult ier value) SCT NGB6 NO GROWTH DAY 5. L Phosphate SerPl-mCnc (02-04-2017 07:01) Phospha 5.8 2.5-4.5 complet te 017 mg/dL ed SerPl-m 07:01 Cnc Prealb SerPl-mCnc (02-04-2017 07:01) Prealb 10.4 20-41 complet SerPl-m 017 mg/dL ed Cnc 07:01 Hgb A1c MFr Bld (02-04-2017 07:01) Hgb A1c 6.5 % 4.7-6.0 complet MFr 017 ed Bld 07:01 Magnesium SerPl-mCnc (02-04-2017 07:01) Magnesi 2.1 1.9-2.4 complet um 017 mg/dL ed SerPl-m 07:01 Cnc Lactate Bld-sCnc (02-04-2017 06:42) Lactate 1.5 complet 017 mmol/L ed Bld-sCn 06:42 c MDRO Wnd (02-04-2017 06:36) SPECIME RCVD complet N 017 ORDER ed CONTAIN 06:36 PROCESS ER ED. L INFO: CC XXX NOTAP complet VC-aCnc 017 NOT ed 06:36 APPLICA BLE L Bacteri [id number] complet a XXX 017 2 ed Anaerob 06:36 Enterob e+Aerob acter e Cult cloacae (organi sm) SCT ENTC ENTEROB ACTER CLOACAE L Bacteri [id number] complet a XXX 017 ed Anaerob 06:36 Staphyl e+Aerob ococcus e Cult aureus (organi sm) SCT SAUR STAPHYL OCOCCUS AUREUS L Bacteri [id number] complet a XXX 017 01 ed Anaerob 06:36 Methici e+Aerob llin e Cult resista nt Staphyl ococcus aureus (organi sm) SCT MRSA1 (MRSA) L Arterial blood gas (02-04-2017 05:10) Arteria - [...] 017 ed 05:10 respira tory rate at [facility] Gas panel in Arterial blood (02-04-2017 05:10) [...] .3 ed base 00:57 excess determi nation Kyle's 10-23-2 Y Y L complet test 017 ed [...] blood 00:57 PO2 at POC Arteria = 88.0 90-100 complet l blood [...] Comment: Hold specimen in OE? N Urine CLOUDY CLEAR complet appeara 017 CLOUDY ed nce 22:25 L determi nation Amorpho 2+ 2+ L NONE complet us 017 ed sedimen 22:25 t detecti on in urine se Urine NEGATIV NEG complet total 017 E ed bilirub 22:25 NEGATIV in E L detecti on by test Urine TRACE-I NEG complet blood 017 NTACT ed detecti 22:25 TRACE-I on NTACT L Urine YELLOW YELLOW complet color 017 YELLOW ed 22:25 L Glucose = NEG complet ur 017 NEGATIV ed test 22:25 E strip Urine NEGATIV NEG complet ketones 017 E ed 22:25 NEGATIV detecti E L on by mg/dL automat ed lauryn Mucus NEGATIV NEG complet detecti 017 E ed on in 22:25 NEGATIV urine E L sedimen t by lig Urine NEGATIV NEG complet nitrite 017 E ed 22:25 NEGATIV detecti E L on by test strip Urine = 5.5 5.0-8.5 complet pH 017 ed 22:25 Urine 2 + NEG complet protein 017 [...] 22:25 E.U./dL detecti on by test str CBC w auto diff (02-03-2017 20:50) Automat [...] 017 K/mm3 ed monocyt 20:50 e count [place] % = 5.6 % 1.7-9.3 complet 017 ed 20:50 Automat 02-03-2 = 7.6 7.4-10. complet ed 017 fl [...] Tacho SOMMERS RN 02/03/17 2138 Ti Yu Brain natriuretic peptide (02-03-2017 20:50) Brain = 1690 0-100 complet natriur 017 pg/mL ed etic 20:50 peptide Cardiac enzymes (02-03-2017 20:50) Serum 02-03-2 = 2.0 0-4.0 complet or 017 U/L ed plasma 20:50 creatin e kinase MB (CK-M Serum = 5.0 0.0-3.6 complet or 017 ng/mL ed plasma 20:50 creatin e kinase MB measu Serum = 250 26-192 complet or 017 U/L ed plasma 20:50 creatin e kinase measure m Serum = 0.12 0.00-0. complet or 017 [...] Renal failure Acute neurological disease Atrial fib. Comprehensive metabolic panel (02-03-2017 20:50) Serum 02-03-2 = 0.7 1.1-1.8 complet or 017 ed plasma 20:50 albumin /globul in mass ra Serum = 3.5 3.4-5.0 complet or 017 gm/dL ed plasma 20:50 albumin measure ment (mas Serum = 169 46-116 complet or 017 U/L ed plasma 20:50 alkalin e phospha tase emmy Serum = 0.7 0.2-1.0 complet or 017 mg/dL ed plasma 20:50 total bilirub in measure m Serum = 27 7-18 complet or 017 mg/dL ed plasma 20:50 urea nitroge n measure men Serum = 9.7 8.5-10. complet or 017 mg/dL 1 ed plasma 20:50 calcium measure ment (mas Serum = 97 98-107 complet or 017 mmoL/L ed plasma 20:50 chlorid e measure ment (mo Carbon = 24 21.0-32 complet dioxide 017 mmoL/L .0 ed 20:50 measure ment Serum = 1.2 0.55-1. complet or 017 mg/dL 02 ed plasma 20:50 creatin ine measure ment ( Estimat = 73 50-200 complet ion of 017 ML/MIN ed creatin 20:50 ine renal clearan ce Estimat = 45 59- complet ed 017 ML/MIN ed glomeru 20:50 lar filtrat ion rate (GF Comment: REFERENCE RANGE: >60 ML/MIN/1.73 SQUARE METERS Comment: If this patient is -[place], then multiply the Comment: result by 1.210. Serum = 5.2 1.3-3.2 complet globuli 017 gm/dL ed n 20:50 measure ment (mass/v olume) Serum = 120 74-106 complet or 017 mg/dL ed plasma 20:50 glucose measure ment (mas Serum = 4.5 3.5-5.1 complet potassi 017 mmoL/L ed um 20:50 measure ment Serum = 134 136-145 complet sodium 017 mmoL/L ed measure 20:50 ment Serum = 132 15-37 complet or 017 U/L ed plasma 20:50 asparta te aminotr ansfera ALT = 131 12-78 complet (SGPT) 017 U/L ed ser/yuli 20:50 s Protein = 8.7 6.4-8.2 complet total 017 gm/dL ed ser/yuli 20:50 s Glucose capillary blood glucometer (02-03-2017 20:44) Glucose [...] ter CBC w auto diff (01-31-2017 07:00) Baso % = 0.5 % 0.1-2.0 complet 017 ed 07:00 Automat = 0.3 0.0-0.4 complet ed 017 K/mm3 ed blood 07:00 eosinop hil count Automat = 2.8 % 0.1-12. complet ed 017 0 ed blood 07:00 eosinop hils/10 0 leukocy t Blood = 6.8 1.8-7.8 complet granulo 017 K/mm3 ed cytes 07:00 automat ed count (numb Granulo = 70.4 37.0-80 complet cyte 017 % .0 ed percent 07:00 age Blood = 31.7 37.0-47 complet hematoc 017 % .0 ed rit 07:00 (volume fractio n) Blood = 9.5 12.2-16 complet hemoglo 017 g/dL .2 ed bin 07:00 measure ment (mass/v olum Absolut = 1.8 0.7-4.5 complet e 017 K/mm3 ed lymphoc 07:00 yte count Lymphoc = 18.8 10-50.0 complet yte 017 % ed count, 07:00 blood, automat ed Mean = 22.8 27-31.2 complet corpusc 017 pg ed ular 07:00 hemoglo bin (MCH) determ Automat = 30.1 31.8-35 complet ed 017 g/dl .4 ed erythro 07:00 cyte mean corpusc ular h Automat = 75.8 82.2-97 complet ed 017 fl .8 ed erythro 07:00 cyte mean corpusc ular v Absolut = 0.7 0.1-1.0 complet e 017 K/mm3 ed monocyt 07:00 e count [place] % = 7.6 % 1.7-9.3 complet 017 ed 07:00 Automat = 7.4 7.4-10. complet ed 017 fl 4 ed blood 07:00 platele t mean volume emmy Blood = 271 142-424 complet platele 017 K/mm3 ed t count 07:00 Red = 4.18 4.2-5.4 complet blood 017 M/mm3 ed cell 07:00 count Automat = 18.1 11.5-17 complet ed 017 % .5 ed erythro 07:00 cyte distrib ution width Blood = 9.7 4.8-10. complet leukocy 017 K/MM3 8 ed lauryn 07:00 count (number /volume ) Automat = 0.1 0-0.2 complet ed 017 K/MM3 ed blood 07:00 basophi l count (count/ vo Comprehensive metabolic panel (01-31-2017 07:00) Serum = 0.8 1.1-1.8 complet or 017 ed plasma 07:00 albumin /globul in mass ra Serum = 2.8 3.4-5.0 complet or 017 gm/dL ed plasma 07:00 albumin measure ment (mas Serum = 125 46-116 complet or 017 U/L ed plasma 07:00 alkalin e phospha tase emmy Serum = 0.5 0.2-1.0 complet or 017 mg/dL ed plasma 07:00 total bilirub in measure m Serum = 25 7-18 complet or 017 mg/dL ed plasma 07:00 urea nitroge n measure men Serum = 9.0 8.5-10. complet or 017 mg/dL 1 ed plasma 07:00 calcium measure ment (mas Serum = 109 98-107 complet or 017 mmoL/L ed plasma 07:00 chlorid e measure ment (mo Carbon = 28 21.0-32 complet dioxide 017 mmoL/L .0 ed 07:00 measure ment Serum = 0.9 0.55-1. complet or 017 mg/dL 02 ed plasma 07:00 creatin ine measure ment ( Estimat = 98 50-200 complet ion of 017 ML/MIN ed creatin 07:00 ine renal clearan ce Estimat = 63 59- complet ed 017 ML/MIN ed glomeru 07:00 lar filtrat ion rate (GF Comment: REFERENCE RANGE: >60 ML/MIN/1.73 SQUARE METERS Comment: If this patient is -[place], then multiply the Comment: result by 1.210. Serum = 3.4 1.3-3.2 complet globuli 017 gm/dL ed n 07:00 measure ment (mass/v olume) Serum = 112 74-106 complet or 017 mg/dL ed plasma 07:00 glucose measure ment (mas Serum = 4.1 3.5-5.1 complet potassi 017 mmoL/L ed um 07:00 measure ment Serum = 145 136-145 complet sodium 017 mmoL/L ed measure 07:00 ment Serum = 84 15-37 complet or 017 U/L ed plasma 07:00 asparta te aminotr ansfera ALT = 70 12-78 complet (SGPT) 017 U/L ed ser/yuli 07:00 s Protein 01-31- = 6.2 6.4-8.2 complet total 017 gm/dL ed ser/yuli 07:00 s Glucose capillary blood glucometer (01-31-2017 06:00) Glucose 01-31-2 = 124 70-110 complet 017 mg/dl ed [...] glucome ter Urine culture (01-30-2017 04:05) Urine YEAST complet culture 017 ISOLATE ed 04:05 D. SENT TO [facility] FOR ID ON 7. Urine [id number] complet culture 017 5 Yeast ed 04:05 SCT Y YEAST L Bacteria identified in Urine by Culture (01-30-2017 [...] ed capilla 11:[address] Comprehensive metabolic panel (01-29-2017 09:20) Serum = 0.7 1.1-1.8 complet or 017 ed plasma 09:20 albumin /globul in mass ra Serum = 133 46-116 complet or 017 U/L ed plasma 09:20 alkalin e phospha tase emmy Serum = 0.5 0.2-1.0 complet or 017 mg/dL ed plasma 09:20 total bilirub in measure m Serum = 38 7-18 complet or 017 mg/dL ed plasma 09:20 urea nitroge n measure men Serum = 9.4 8.5-10. complet or 017 mg/dL 1 ed plasma 09:20 calcium measure ment (mas Serum = 102 98-107 complet or 017 mmoL/L ed plasma 09:20 chlorid e measure ment (mo Carbon = 30 21.0-32 complet dioxide 017 mmoL/L .0 ed 09:20 measure ment Serum = 1.1 0.55-1. complet or 017 mg/dL 02 ed plasma 09:20 creatin ine measure ment ( Estimat = 83 50-200 complet ion of 017 ML/MIN ed creatin 09:20 ine renal clearan ce Estimat = 50 59- complet ed 017 ML/MIN ed glomeru 09:20 lar filtrat ion rate (GF Comment: REFERENCE RANGE: >60 ML/MIN/1.73 SQUARE METERS Comment: If this patient is -[place], then multiply the Comment: result by 1.210. Serum = 4.2 1.3-3.2 complet globuli 017 gm/dL ed n 09:20 measure ment (mass/v olume) Serum = 98 74-106 complet or 017 mg/dL ed plasma 09:20 glucose measure ment (mas Serum = 4.1 3.5-5.1 complet potassi 017 mmoL/L ed um 09:20 measure ment Serum = 140 136-145 complet sodium 017 mmoL/L ed measure 09:20 ment Serum = 37 15-37 complet or 017 U/L ed plasma 09:20 asparta te aminotr ansfera ALT = 29 12-78 complet (SGPT) 017 U/L ed ser/yuli 09:20 s Protein = 7.2 6.4-8.2 complet total 017 gm/dL ed ser/yuli 09:20 s Serum = 3.0 3.4-5.0 complet or 017 gm/dL ed plasma 09:20 albumin measure ment (mas CBC w auto diff (01-29-2017 09:20) Baso % = 0.2 % 0.1-2.0 complet 017 ed 09:20 Automat = 0.0 0-0.2 complet ed 017 K/MM3 ed blood 09:20 basophi l count (count/ vo Automat = 0.1 0.0-0.4 complet ed 017 K/mm3 ed blood 09:20 eosinop hil count Automat = 0.9 % 0.1-12. complet ed 017 0 ed blood 09:20 eosinop hils/10 0 leukocy t Blood = 9.3 1.8-7.8 complet granulo 017 K/mm3 ed cytes 09:20 automat ed count (numb Granulo = 85.4 37.0-80 complet cyte 017 % .0 ed percent 09:20 age Blood = 33.9 37.0-47 complet hematoc 017 % .0 ed rit 09:20 (volume fractio n) Blood = 10.1 12.2-16 complet hemoglo 017 g/dL .2 ed bin 09:20 measure ment (mass/v olum Absolut = 1.0 0.7-4.5 complet e 017 K/mm3 ed lymphoc 09:20 yte count Lymphoc = 8.8 % 10-50.0 complet yte 017 ed count, 09:20 blood, automat ed Mean = 22.4 27-31.2 complet corpusc 017 pg ed ular 09:20 hemoglo bin (MCH) determ Automat = 29.8 31.8-35 complet ed 017 g/dl .4 ed erythro 09:20 cyte mean corpusc ular h Automat = 75.2 82.2-97 complet ed 017 fl .8 ed erythro 09:20 cyte mean corpusc ular v Absolut = 0.5 0.1-1.0 complet e 017 K/mm3 ed monocyt 09:20 e count [place] % = 4.6 % 1.7-9.3 complet 017 ed 09:20 Automat = 8.1 7.4-10. complet ed 017 fl 4 ed blood 09:20 platele t mean volume emmy Blood = 267 142-424 complet platele 017 K/mm3 ed t count 09:20 Red = 4.51 4.2-5.4 complet blood 017 M/mm3 ed cell 09:20 count Automat = 17.7 11.5-17 complet ed 017 % .5 ed erythro 09:20 cyte distrib ution width Blood = 10.8 4.8-10. complet leukocy 017 K/MM3 8 ed lauryn 09:20 count (number /volume ) Differential panel, method unspecified - (01-29-2017 09:20) Automat = 1 % 0-8 complet ed 017 ed blood 09:20 band neutrop hil percent a Manual = 2 % 0-3 complet blood 017 ed eosinop 09:20 hils/10 0 leukocy lauryn Hypochr 2+ 2+ L complet omatic 017 ed red 09:20 blood cell detecti on LYMPH 8 % 10-50 complet 017 ed 09:20 Periphe 1+ 1+ L complet ral 017 ed blood 09:20 smear examina tion by li Monocyt = 5 % 2-9 complet e % 017 ed 09:20 Platele NORMAL complet t 017 NORMAL ed estimat 09:20 L e Neutrop = 84 % 42-76 complet hil 017 ed count 09:20 Blood = 100 complet total 017 #CELLS ed cell 09:20 count Differential panel, method unspecified - (01-29-2017 09:20) [...] Lab if confirmation of positives is needed. Urine NEGATIV <1000 complet ampheta 017 E ed mine 04:44 NEGATIV screeni E L ng test ng/mL Urine = <200 complet barbitu 017 NEGATIV ed rates 04:44 E ng/mL measure ment by screen Serum = 200 complet or 017 NEGATIV ng/mL ed plasma 04:44 E ng/mL benzodi azepine s measure m Cocaine = <300 complet 017 NEGATIV ed measure 04:44 E ng/g ment (mass/v olume) Methado = <300 complet ne 017 NEGATIV ed measure 04:44 E ng/mL ment (mass/v olume) Opiates = <300 complet 017 POSITIV ed measure 04:44 E ng/mL ment (mass/v olume) Comment: This is an UNCONFIRMED result. This result is for medical Comment: purposes and/or treatment only. Phencyc = <25 complet lidine 017 NEGATIV ed measure 04:44 E ng/mL ment (mass/v olume) 11-hydr NEGATIV <50 complet oxy 017 E ed delta-9 04:44 NEGATIV E L tetrahy ng/mL drocann abinol Drugs identified in Urine by Screen method (01-29-2017 04:44) Ampheta NEGATIV <1000 complet mine 017 E ed [Presen 04:44 ce] in Urine by Screen method 11- NEGATIV <50 complet oxy 017 E ed [...] Arterial blood gas (01-28-2017 08:00) Arteria = 3.7 -2.4-+2 complet l blood 017 MMOL/L .3 ed base 08:00 excess determi nesha Wright's PATIENT complet test 017 UNABLE ed before 08:00 arteria PATIENT l blood UNABLE gas L Arteria = 30.2 22.0-26 complet l blood 017 MMOL/L .0 ed 08:00 bicarbo zaid measure ment ( Arteria = 62.9 35.0-45 complet l blood 017 MMHG .0 ed 08:00 partial pressur e of carbo Comment: Comment: Comment: CRITICAL RESULTS Comment: RESULTS CALLED TO: 01/28/17805 Gisella Stark Arteria = 7.30 7.35-7. complet l blood 017 MMOL/L 45 ed pH 08:00 measure ment Arteria = 74.3 80-100 complet l whole 017 MMHG ed blood 08:00 PO2 at POC Arteria = 93.9 90-100 complet l blood 017 % ed oxygen 08:00 saturat ion calcula SOURCE RIGHT complet 017 BRACHIA ed 08:00 L Arteria = 32.1 23-27 complet l blood 017 MMOL/L ed carbon 08:00 dioxide , total emmy Gas panel in Arterial blood (01-28-2017 08:00) Arteria PATIENT complet l 017 UNABLE ed patency 08:00 Wrist artery --pre arteria l punctur e SOURCE RIGHT complet 017 BRACHIA ed 08:00 L Comprehensive metabolic panel (01-28-2017 06:17) Comment: COMMENTS TO HIGH VALUE ASSOCIATE: 0600 Serum = 0.7 1.1-1.8 complet or 017 ed plasma 06:17 albumin /globul in mass ra Serum = 3.1 3.4-5.0 complet or 017 gm/dL ed plasma 06:17 albumin measure ment (mas Serum = 135 46-116 complet or 017 U/L ed plasma 06:17 alkalin e phospha tase emmy Serum = 0.3 0.2-1.0 complet or 017 mg/dL ed plasma 06:17 total bilirub in measure m Serum = 60 7-18 complet or 017 mg/dL ed plasma 06:17 urea nitroge n measure men Serum = 8.6 8.5-10. complet or 017 mg/dL 1 ed plasma 06:17 calcium measure ment (mas Serum = 98 98-107 complet or 017 mmoL/L ed plasma 06:17 chlorid e measure ment (mo Carbon = 32 21.0-32 complet dioxide 017 mmoL/L .0 ed 06:17 measure ment Serum = 2.2 0.55-1. complet or 017 mg/dL 02 ed plasma 06:17 creatin ine measure ment ( Estimat = 41 50-200 complet ion of 017 ML/MIN ed creatin 06:17 ine renal clearan ce Estimat = 22 59- complet ed 017 ML/MIN ed glomeru 06:17 lar filtrat ion rate (GF Comment: REFERENCE RANGE: >60 ML/MIN/1.73 SQUARE METERS Comment: If this patient is -[place], then multiply the Comment: result by 1.210. Serum = 4.3 1.3-3.2 complet globuli 017 gm/dL ed n 06:17 measure ment (mass/v olume) Serum = 103 74-106 complet or 017 mg/dL ed plasma 06:17 glucose measure ment (mas Serum = 5.4 3.5-5.1 complet potassi 017 mmoL/L ed um 06:17 measure ment Serum = 134 136-145 complet sodium 017 mmoL/L ed measure 06:17 ment Serum = 18 15-37 complet or 017 U/L ed plasma 06:17 asparta te aminotr ansfera ALT = 21 12-78 complet (SGPT) 017 U/L ed ser/yuli 06:17 s Protein = 7.4 6.4-8.2 complet total 017 gm/dL ed ser/yuli 06:17 s CBC w auto diff (01-28-2017 06:17) Comment: COMMENTS TO HIGH VALUE ASSOCIATE: 0600 Automat = 0.0 0-0.2 complet ed 017 K/MM3 ed blood 06:17 basophi l count (count/ vo Automat = 0.3 0.0-0.4 complet ed 017 K/mm3 ed blood 06:17 eosinop hil count Automat = 2.5 % 0.1-12. complet ed 017 0 ed blood 06:17 eosinop hils/10 0 leukocy t Blood = 10.5 1.8-7.8 complet granulo 017 K/mm3 ed cytes 06:17 automat ed count (numb Granulo = 82.9 37.0-80 complet cyte 017 % .0 ed percent 06:17 age Blood = 31.9 37.0-47 complet hematoc 017 % .0 ed rit 06:17 (volume fractio n) Blood = 9.5 12.2-16 complet hemoglo 017 g/dL .2 ed bin 06:17 measure ment (mass/v olum Absolut = 1.2 0.7-4.5 complet e 017 K/mm3 ed lymphoc 06:17 yte count Lymphoc = 9.5 % 10-50.0 complet yte 017 ed count, 06:17 blood, automat ed Mean = 22.8 27-31.2 complet corpusc 017 pg ed ular 06:17 hemoglo bin (MCH) determ Automat = 29.6 31.8-35 complet ed 017 g/dl .4 ed erythro 06:17 cyte mean corpusc ular h Automat = 76.8 82.2-97 complet ed 017 fl .8 ed erythro 06:17 cyte mean corpusc ular v Absolut = 0.6 0.1-1.0 complet e 017 K/mm3 ed monocyt 06:17 e count [place] % = 4.9 % 1.7-9.3 complet 017 ed 06:17 Automat = 7.4 7.4-10. complet ed 017 fl 4 ed blood 06:17 platele t mean volume emmy Blood = 274 142-424 complet platele 017 K/mm3 ed t count 06:17 Red = 4.16 4.2-5.4 complet blood 017 M/mm3 ed cell 06:17 count Automat = 17.6 11.5-17 complet ed 017 % .5 ed erythro 06:17 cyte distrib ution width Blood = 12.7 4.8-10. complet leukocy 017 K/MM3 8 ed lauryn 06:17 count (number /volume ) Baso % = 0.1 % 0.1-2.0 complet 017 ed 06:17 Glucose capillary blood glucometer (01-28-2017 03:39) Glucose [...] Glucose capillary blood glucometer (01-27-2017 11:42) Glucose = 120 70-110 complet 017 mg/dl ed capilla 11:[address] Glucose capillary blood glucometer (01-27-2017 06:38) Glucose = 127 70-110 complet 017 mg/dl ed capilla 06:[address] CBC w auto diff (01-27-2017 05:35) Automat = 0.0 0-0.2 complet ed 017 K/MM3 ed blood 05:35 basophi l count (count/ vo Baso % = 0.2 % 0.1-2.0 complet 017 ed 05:35 Automat = 0.2 0.0-0.4 complet ed 017 K/mm3 ed blood 05:35 eosinop hil count Automat = 2.0 % 0.1-12. complet ed 017 0 ed blood 05:35 eosinop hils/10 0 leukocy t Blood = 7.3 1.8-7.8 complet granulo 017 K/mm3 ed cytes 05:35 automat ed count (numb Granulo = 77.7 37.0-80 complet cyte 017 % .0 ed percent 05:35 age Blood = 31.8 37.0-47 complet hematoc 017 % .0 ed rit 05:35 (volume fractio n) Blood = 9.7 12.2-16 complet hemoglo 017 g/dL .2 ed bin 05:35 measure ment (mass/v olum Absolut = 1.4 0.7-4.5 complet e 017 K/mm3 ed lymphoc 05:35 yte count Lymphoc = 14.6 10-50.0 complet yte 017 % ed count, 05:35 blood, automat ed Mean = 23.2 27-31.2 complet corpusc 017 pg ed ular 05:35 hemoglo bin (MCH) determ Automat = 30.4 31.8-35 complet ed 017 g/dl .4 ed erythro 05:35 cyte mean corpusc ular h Automat = 76.3 82.2-97 complet ed 017 fl .8 ed erythro 05:35 cyte mean corpusc ular v Absolut = 0.5 0.1-1.0 complet e 017 K/mm3 ed monocyt 05:35 e count [place] % = 5.6 % 1.7-9.3 complet 017 ed 05:35 Automat = 7.5 7.4-10. complet ed 017 fl 4 ed blood 05:35 platele t mean volume emmy Blood = 277 142-424 complet platele 017 K/mm3 ed t count 05:35 Red = 4.16 4.2-5.4 complet blood 017 M/mm3 ed cell 05:35 count Automat = 17.6 11.5-17 complet ed 017 % .5 ed erythro 05:35 cyte distrib ution width Blood = 9.4 4.8-10. complet leukocy 017 K/MM3 8 ed lauryn 05:35 count (number /volume ) Basic metabolic panel (01-27-2017 05:35) Serum = 48 7-18 complet or 017 mg/dL ed plasma 05:35 urea nitroge n measure men Serum = 8.5 8.5-10. complet or 017 mg/dL 1 ed plasma 05:35 calcium measure ment (mas Serum = 99 98-107 complet or 017 mmoL/L ed plasma 05:35 chlorid e measure ment (mo Carbon = 34 21.0-32 complet dioxide 017 mmoL/L .0 ed 05:35 measure ment Serum = 1.4 0.55-1. complet or 017 mg/dL 02 ed plasma 05:35 creatin ine measure ment ( Estimat = 64 50-200 complet ion of 017 ML/MIN ed creatin 05:35 ine renal clearan ce Estimat = 38 59- complet ed 017 ML/MIN ed glomeru 05:35 lar filtrat ion rate (GF Comment: REFERENCE RANGE: >60 ML/MIN/1.73 SQUARE METERS Comment: If this patient is -[place], then multiply the Comment: result by 1.210. Serum 01-27-2 = 114 74-106 complet or 017 mg/dL ed plasma 05:35 glucose measure ment (mas Serum 01-27-2 = 5.0 3.5-5.1 complet potassi 017 mmoL/L ed um 05:35 measure ment Serum 2 = 137 136-145 complet sodium 017 mmoL/L ed measure 05:35 ment Glucose capillary blood glucometer (01-26-2017 20:54) Glucose 01-26-2 = 130 70-110 complet 017 mg/dl ed capilla 20:[address] Glucose capillary blood glucometer (01-26-2017 17:14) Glucose 2 = 171 70-110 complet 017 mg/dl ed capilla 17:[address] Comprehensive metabolic panel (01-26-2017 13:15) Protein = 7.6 6.4-8.2 complet total 017 gm/dL ed ser/yuli 13:15 s Estimat = 45 59- complet ed 017 ML/MIN ed glomeru 13:15 lar filtrat ion rate (GF Comment: REFERENCE RANGE: >60 ML/MIN/1.73 SQUARE METERS Comment: If this patient is -[place], then multiply the Comment: result by 1.210. Serum 2 = 4.4 1.3-3.2 complet globuli 017 gm/dL ed n 13:15 measure ment (mass/v olume) Serum = 157 74-106 complet or 017 mg/dL ed plasma 13:15 glucose measure ment (mas Serum 2 = 3.8 3.5-5.1 complet potassi 017 mmoL/L ed um 13:15 measure ment Serum 2 = 0.7 1.1-1.8 complet or 017 ed plasma 13:15 albumin /globul in mass ra Serum = 3.2 3.4-5.0 complet or 017 gm/dL ed plasma 13:15 albumin measure ment (mas Serum 01-26-2 = 136 46-116 complet or 017 U/L ed plasma 13:15 alkalin e phospha tase emmy Serum = 136 136-145 complet sodium 017 mmoL/L ed measure 13:15 ment Estimat = 74 50-200 complet ion of 017 ML/MIN ed creatin 13:15 ine renal clearan ce Serum = 0.3 0.2-1.0 complet or 017 mg/dL ed plasma 13:15 total bilirub in measure m Serum = 14 15-37 complet or 017 U/L ed plasma 13:15 asparta te aminotr ansfera ALT = 16 12-78 complet (SGPT) 017 U/L ed ser/yuli 13:15 s Serum = 42 7-18 complet or 017 mg/dL ed plasma 13:15 urea nitroge n measure men Serum = 9.0 8.5-10. complet or 017 mg/dL 1 ed plasma 13:15 calcium measure ment (mas Serum = 99 98-107 complet or 017 mmoL/L ed plasma 13:15 chlorid e measure ment (mo Carbon = 33 21.0-32 complet dioxide 017 mmoL/L .0 ed 13:15 measure ment Serum = 1.2 0.55-1. complet or 017 mg/dL 02 ed plasma 13:15 creatin ine measure ment ( Glucose capillary blood glucometer (01-26-2017 12:13) Glucose [...] 013 4 ed T 21:05 VOLUME Granulo 67.8 % 37.0-80 complet cytes 013 .0 ed Fr Bld 21:05 Auto LYMPH % 24.0 % 10-50.0 complet 013 ed 21:05 Monocyt 09-07-2 5.6 % 1.7-9.3 complet es Fr 013 ed Bld 21:05 Auto Eosinop 09-07-2 2.2 % 0.1-12. complet hil Fr 013 0 ed Bld 21:05 Auto Basophi 09-07-2 0.3 % 0.1-2.0 complet ls Fr 013 ed Bld 21:05 Auto Granulo -07-2 6.8 1.8-7.8 complet cytes # 013 K/mm3 [...] ACID 013 mg/dL ed 11:30 Glucose dC [facility]com[facility] (08-19-2012 11:55) Glucose 166 70-110 complet BldC 013 mg/dl ed Glucomt 11:55 [facility] Glucose dC Glucomtr-[facility] (08-19-2012 06:34) Glucose 103 70-110 complet BldC 013 mg/dl ed [facility] 06[facility] (08-19-2012 06:05) Glucose [...] % 10-50.0 complet 013 ed 06:05 Monocyt 08-19-2 5.5 % 1.7-9.3 complet es Fr 013 ed Bld 06:05 Auto Eosinop 07-2 5.2 % 0.1-12. complet hil Fr 013 0 ed Bld 06:05 Auto Basophi -07-2 0.3 % 0.1-2.0 complet ls Fr 013 ed Bld 06:05 Auto Granulo 07-2 3.0 1.8-7.8 complet cytes # 013 K/mm3 ed Bld 06:05 Auto Lymphoc 07-2 2.4 0.7-4.5 complet ytes Fr 013 K/mm3 ed Bld 06:05 Auto Monocyt 05-07-2 0.3 0.1-1.0 complet es # 013 K/mm3 ed Bld 06:05 Auto Eosinop -07-2 0.3 0.0-0.4 complet hil # 013 K/mm3 ed Bld 06:05 Auto Basophi -07-2 0.0 0-0.2 complet ls # 013 K/MM3 ed Bld 06:05 [facility] Glucose 06-2 150 70-110 complet BldC 013 mg/dl ed Glucomt 20:33 r-nc Glucose [facility] Glucom-[facility] (08-18-2012 17:05) Glucose 05-06-2 162 70-110 complet BldC 013 mg/dl ed Glucomt 17:05 r-nc Glucose dC Glucomtr-[facility] (08-18-2012 11:49) Glucose 05-06-2 130 70-110 complet [...] #/hpf ed S CELLS 11:38 Glucose dC Glucom-[facility] (08-18-2012 06:37) Glucose 05-06-2 108 70-110 complet BldC 013 mg/dl ed Glucomt 06:37 r-[facility] Glucose BldC [facility]comtr-[facility] (08-17-2012 21:07) Glucose 05-2 176 70-110 complet BldC 013 mg/dl ed Glucomt 21:07 r-[facility] COMPREHENSIVE METABOLIC PANEL (08-17-2012 12:45) Glucose 05-2 [...] K/MM3 ed Bld 12:45 Auto Glucose BldC Glucomtr-[facility] (06-01-2012 06:56) Glucose 101 70-110 complet BldC 013 mg/dl ed Glucomt 06:56 r-[facility] Glucose BldC Glucomtr-[facility] (05-31-2012 20:27) Glucose 161 70-110 complet BldC 013 mg/dl ed Glucomt 20:27 r-[facility] Glucose BldC Glucomtr-[facility] (05-31-2012 16:53) Glucose 115 70-110 complet BldC 013 mg/dl ed Glucomt 16:53 r-[facility] BASIC METABOLIC PANEL (05-31-2012 12:22) Glucose 114 [...] mg/dL 1 ed SerPl-m 12:22 Cnc Glucose BldC Glucomtr-mCnc (05-31-2012 11:57) Glucose 175 70-110 complet BldC 013 mg/dl ed Glucomt 11:57 r-mCnc Glucose BldC Glucomtr-mCnc (05-31-2012 09:35) Glucose 105 70-110 complet BldC 013 mg/dl ed Glucomt 09:35 r-mCnc Glucose BldC Glucomtr-mCnc (05-31-2012 07:47) Glucose 170 70-110 complet BldC 013 mg/dl ed Glucomt 07:47 r-mCnc Glucose BldC Glucomtr-mCnc (05-31-2012 06:22) Glucose 89 70-110 complet BldC 013 mg/dl ed Glucomt 06:22 r-mCnc Glucose BldC Glucomtr-[facility] (05-30-2012 21:31) Glucose 163 70-110 complet BldC 013 mg/dl ed Glucomt 21:31 r-mCnc Glucose BldC Glucomtr-nc (05-30-2012 16:38) Glucose 150 70-110 complet BldC 013 mg/dl ed Glucomt 16:38 r-mCnc Glucose BldC Glucomtr-nc (05-30-2012 11:35) Glucose 104 70-110 complet BldC 013 mg/dl ed Glucomt 11:35 r-mCnc Glucose BldC Glucomtr-mCnc (05-30-2012 06:33) Glucose 109 70-110 complet BldC 013 mg/dl ed Glucomt 06:33 r-mCnc BASIC METABOLIC PANEL (05-30-2012 06:32) Glucose 105 74-106 complet 013 mg/dL ed Bld-mCn 06:32 c BUN 35 7-18 complet Bld-mCn 013 mg/dL ed c 06:32 Creat 05-30-2 1.3 0.6-1.0 complet SerPl-m 013 mg/dL ed Cnc 06:32 ESTIMAT 05-30-2 81 50-200 complet ED 013 ML/MIN ed CREATIN 06:32 INE CLEARAN CE GFR 42 59- complet (ESTIMA 013 ML/MIN ed JULIANNE) 06:32 Sodium 05-30- 140 136-145 complet SerPl-s 013 mmoL/L ed Cnc 06:32 Potassi 2 3.8 3.5-5.1 complet um 013 mmoL/L ed SerPl-s 06:32 Cnc Chlorid 97 98-107 complet e 013 mmoL/L ed SerPl-s 06:32 Cnc CO2 33 21.0-32 complet SerPl-s 013 mmoL/L .0 ed Cnc 06:32 Calcium 05-30- 8.5 8.5-10. complet 013 mg/dL 1 ed SerPl-m 06:32 Cnc CBC with AUTO DIFF (05-30-2012 06:32) WBC # -15-2 7.7 4.8-10. complet Bld 013 K/MM3 8 ed Auto 06:32 RBC # 15-2 4.04 4.2-5.4 complet Bld 013 M/mm3 ed Auto 06:32 Hgb 05-30-2 10.7 12.2-16 complet Bld-mCn 013 g/dL .2 ed c 06:32 Hct Fr 33.9 % 37.0-47 complet Bld 013 .0 ed 06:32 MCV RBC 05-30-2 83.9 fl 82.2-97 complet 013 .8 ed 06:32 MCH RBC 05-30-2 26.4 pg 27-31.2 complet Qn 013 ed Auto 06:32 MEAN 05-30-2 31.5 31.8-35 complet CORPUSC 013 g/dl .4 ed ULAR 06:32 HGB CONC RDW RBC 15-2 15.7 % 11.5-17 complet Auto 013 .5 ed 06:32 Platele 386 142-424 complet t Bld 013 K/mm3 ed Ql 06:32 Manual MEAN 7.4 fl 7.4-10. complet PLATELE 013 4 [...] K/MM3 ed Bld 06:32 Auto Glucose dC Glucomtr-[facility] (05-29-2012 21:06) Glucose 148 70-110 complet BldC 013 mg/dl ed Glucomt 21:06 r-[facility] Glucose BldC Glucomtr-[facility] (05-29-2012 16:53) Glucose 110 70-110 complet BldC 013 mg/dl ed Glucomt 16:53 r-[facility] Glucose BldC Glucomtr-[facility] (05-29-2012 11:57) Glucose 177 70-110 complet BldC 013 mg/dl ed Glucomt 11:57 r-[facility] Glucose dC Glucomtr-[facility] (05-29-2012 09:46) Glucose 139 70-110 complet BldC [...] complet SerPl-c 013 ed Cnc 23:50 ALT 05-28- 35 U/L 30-65 complet SerPl-c 013 ed Cnc 23:50 ALP 05-28- 146 U/L 50-136 complet SerPl-c 013 ed Cnc 23:50 BNP Bld-mCnc (05-28-2012 23:50) BNP 05-28-2 345 0-100 complet Bld-mCn 013 pg/mL ed c 23:50 CBC with AUTO DIFF (05-28-2012 23:50) WBC # -13-2 10.9 4.8-10. complet Bld 013 K/MM3 8 [...] Fr 013 ed Bld 23:50 Auto Granulo -13-2 8.7 1.8-7.8 complet cytes # 013 K/mm3 ed Bld 23:50 Auto Lymphoc -13-2 1.7 0.7-4.5 complet ytes Fr 013 K/mm3 ed Bld 23:50 Auto Monocyt 02-13-2 0.4 0.1-1.0 complet es # 013 K/mm3 ed Bld 23:50 Auto Eosinop -13-2 0.2 0.0-0.4 complet hil # 013 K/mm3 ed Bld 23:50 Auto Basophi -13-2 0.0 0-0.2 complet ls # 013 K/MM3 ed Bld 23:50 Auto Procedures Procedure DOS Code Location Performer Comment CLOSURE 86.59 Leanne MANZANO & Hawa [facility] NEC Encounters Encounter Start End Date Code Location Performer Type Date Emergency VALERY Shaikh MD (ER) 3 20:50 3 21:50 [facility] Emergency VALERY Flowers MD (ER) 3 11:31 3 12:38 [facility] Emergency VALERY Shaikh MD (ER) 3 19:20 3 20:31 [facility] Inpatient OPAL Blanca ([place]) 3 12:50 3 14:20 [facility] Inpatient IMP Pipo Breaux MD (IN) 3 23:10 3 10:45 [facility]
--- OUTSIDE RECORDS SUMMARY | 2017-03-03 03:31 | External Medical Summary Rpt | CCD ---
Author Author , DWIGHT QUINTANILLA Address Unknown Phone [email or web address] Providers Care Box Toe Stitcher Name Role Phone Leanne Shaikh MD, Unavailable Unavailable Leanne Blanca MD, Unavailable Unavailable Eduin Blanca MD Purpose Continuity of Care Document - 05-28-2012 through 2016 Problems Code Diagnosis DOS Provider Status 162.9 276.8 Hypokalemia [facility] 416.9 [facility] [id number] Gastritis [facility] 585.9 [id number] [id number] Chronic [facility] E66.9 OBESITY, UNSPECIFIED E86.0 DEHYDRATION F41.9 ANXIETY [...] RO 07 -0 SE 90 6- Lo AK 07 20 ng DE 32 13 er [...] 5 ti MG ve TA BL ET AK 11 05 1 No RA 52 -0 [...] TF 07 -0 OR 90 5- Lo AK 17 20 ng N 22 13 er [...] 1 Ac TA ti BL ve ET NH 00 02 2 No OM 64 -1 [...] RO 40 -1 SE 96 4- Lo AK 10 20 ng DE 20 13 er [...] TF 07 -1 OR 90 4- Lo AK 17 20 ng N 22 13 er [...] 0M ti G ve Ta bl et [place] 00 02 3 No OT 00 -1 [...] 017 K/mm3 ed monocyt 00:47 e count [place] % = 8.1 % 1.7-9.3 complet 017 [...] SQUARE METERS Comment: If this patient is -Stateless, then multiply the Comment: result by 1.210. [...] SQUARE METERS Comment: If this patient is -Stateless, then multiply the Comment: result by 1.210. [...] 017 K/mm3 ed monocyt 04:00 e count [place] % = 8.0 % 1.7-9.3 complet 017 [...] 4.8-10. complet leukocy 017 K/MM3 8 ed luaryn 04:00 count (number /volume ) Urinalysis with [...] (mass/v olume) Serum or plasma ethanol measurement ([facility] (02-17-2017 04:00) Serum = 0 0-99 complet or 017 mg/dL ed plasma 04:00 ethanol measure ment ([facility] Comprehensive metabolic panel (02-17-2017 04:00) Protein = 7.3 6.4-8.2 complet total 017 gm/dL ed ser/yuli 04:00 s Serum = 0.7 1.1-1.8 complet or 017 ed plasma 04:00 albumin /globul in mass ra Serum = 3.0 3.4-5.0 complet or 017 gm/dL ed plasma 04:00 albumin measure ment ([facility] Serum = 134 46-116 complet or 017 [...] Mycobacterium XXX Ql Cult (02-05-2017 13:51) Bacteri [id number] complet a XXX 017 00 not ed [...] N EXAM TUAN Prep XXX (02-05-2017 13:51) TUAN [id number] complet 017 03 ed 13:51 sample: fungus not isolate d (findin g) SCT NOFEO NO FUNGAL ELEMENT S OBSERVE D L HSV1+2 DNA XXX Ql PCR (02-05-2017 13:51) HSV1+2 DUP complet DNA XXX 017 DUPLICA ed Ql PCR 13:51 TE ORDER,C REDITED L Resp virus 12 Pnl XXX PCR (02-05-2017 13:51) BAL PCR [id number] complet RESULT 017 09 ed 13:51 negativ e (qualif ier value) SCT NEGRP NEGATIV E for all analyte s L Acid fast Stn XXX Ql (02-05-2017 13:51) ACID [id number] complet FAST 017 8 not ed STAIN 13:51 seen (qualif ier value) SCT NOAFB NO AFB SEEN L Fungus Tiss Cult (02-05-2017 13:51) SPECIME RCVD complet N 017 ORDER ed CONTAIN 13:51 PROCESS ER ED. L INFO: Bacteri [id number] complet a XXX 017 5 ed Anaerob 13:51 Sharmin e+Aerob e Cult albican s (organi sm) SCT CALB SHARMIN ALBICAN S L Bacteria Bronch Aerobe Cult (02-05-2017 13:51) SPECIME RCVD complet N 017 ORDER ed CONTAIN 13:51 PROCESS ER ED. L INFO: CC XXX LGRO complet VC-aCnc 017 LIGHT ed 13:51 GROWTH L Bacteri [id number] complet a XXX 017 5 ed Anaerob [...] Anaerob 13:41 ACCESSI e+Aerob ON e Cult [id number] FOR RESULTS T4 Free SerPl-mCnc (02-04-2017 09:39) T4 Free 1.2 0.8-1.7 complet 017 ng/dL ed SerPl-m 09:39 Cnc NT-proBNP SerPl-mCnc (02-04-2017 09:39) NT-proB [id number] 0-899 complet TIRE ADJUSTER 017 pg/mL ed SerPl-m 09:39 Cnc TSH SerPl DL<=0.005 mIU/L-aCnc (02-04-2017 09:39) TSH 1.58 0.4-4.2 complet SerPl 017 uIU/mL ed DL<=0.0 09:39 05 mIU/L-a Cnc Resp virus 12 Pnl XXX PCR (02-04-2017 09:39) COMP [id number] complet RESP 017 09 ed PCR 09:39 negativ PANEL e RESULT: (qualif ier value) SCT NEGRP NEGATIV E for all analyte s L S pneum Ag Ur Ql (02-04-2017 09:39) STREP [id number] complet PNEUMO 017 09 ed AG 09:39 negativ RESULT e (qualif ier value) SCT NEGU NEGATIV E for Strepto coccus pneumon iae antigen . L STREP 02-04- (NOTE) complet PNEUMO 017 ed AG 09:39 RESULT STREP 02-04- REFEREN complet PNEUMO 017 CE ed AG 09:39 VALUE: RESULT NEGATIV E FOR STREPTO COCCUS PNEUMON IAE ANTIGEN . Legionella Ag Ur Ql (02-04-2017 09:39) RESULT [id number] complet LEGIONE 017 09 ed LLA 09:39 negativ ANTIGEN e (qualif ier value) SCT PNLEG NEGATIV E for Legione lla pneumop josé luis serogro up 1 antigen . L Bacteria XXX Anaerobe+Aerobe Cult (02-04-2017 09:39) SPECIME FANB complet N 017 AEROBIC ed CONTAIN 09:39 FAN ER AND INFO: ANAEROB IC BLOOD CULTURE BOTTLES L SPECIME [id number] complet N 017 03 ed CONTAIN 09:39 blood ER volume INFO: estimat ion (proced ure) SCT BVA BLOOD CULTURE VOLUME ACCEPTA BLE L Bacteri [id number] complet a XXX 017 06 No ed Anaerob 09:39 growth e+Aerob (qualif e Cult ier value) SCT NGB6 NO GROWTH DAY 5. L Bacteria Bro Lennon Aerobe Cult (02-04-2017 09:30) SPECIME RCVD complet N 017 ORDER ed CONTAIN 09:30 PROCESS ER ED. L INFO: Bacteri [id number] complet a XXX 017 5 ed Anaerob 09:30 Sharmin e+Aerob e Cult albican s (organi sm) SCT CALB SHARMIN ALBICAN S L Bacteria XXX Anaerobe+Aerobe Cult (02-04-2017 07:17) SPECIME FANB complet N 017 AEROBIC ed CONTAIN 07:17 FAN ER AND INFO: ANAEROB IC BLOOD CULTURE BOTTLES L SPECIME [id number] complet N 017 03 ed CONTAIN 07:17 blood ER volume INFO: estimat ion (proced ure) SCT BVA BLOOD CULTURE VOLUME ACCEPTA BLE L Bacteri [id number] complet a XXX 017 06 No ed [...] NOT ed 06:36 APPLICA BLE L Bacteri [id number] complet a XXX 017 2 ed Anaerob 06:36 Enterob e+Aerob acter e Cult cloacae (organi sm) SCT ENTC ENTEROB ACTER CLOACAE L Bacteri [id number] complet a XXX 017 ed Anaerob 06:36 Staphyl e+Aerob ococcus e Cult aureus (organi sm) SCT SAUR STAPHYL OCOCCUS AUREUS L Bacteri [id number] complet a XXX 017 01 ed Anaerob [...] 017 ed 05:10 respira tory rate at [facility] Gas panel in Arterial blood (02-04-2017 [...] blood 017 MMOL/L .0 ed 23:04 bicarbo ziad measure ment ( Arteria = 100 complet [...] 017 K/mm3 ed monocyt 20:50 e count [place] % = 5.6 % 1.7-9.3 complet 017 [...] SQUARE METERS Comment: If this patient is -Stateless, then multiply the Comment: result by 1.210. [...] 017 K/mm3 ed monocyt 07:00 e count [place] % = 7.6 % 1.7-9.3 complet 017 [...] SQUARE METERS Comment: If this patient is -Stateless, then multiply the Comment: result by 1.210. [...] TO [facility] FOR ID ON 7. Urine [id number] complet culture 017 5 Yeast ed 04:05 [...] SQUARE METERS Comment: If this patient is -Stateless, then multiply the Comment: result by 1.210. [...] 017 K/mm3 ed monocyt 09:20 e count [place] % = 4.6 % 1.7-9.3 complet 017 [...] metabolic panel (01-28-2017 06:17) Comment: COMMENTS TO MONEY ROOM TELLER: 0600 Serum = 0.7 1.1-1.8 complet or [...] SQUARE METERS Comment: If this patient is -Stateless, then multiply the Comment: result by 1.210. [...] auto diff (01-28-2017 06:17) Comment: COMMENTS TO MONEY ROOM TELLER: 0600 Automat = 0.0 0-0.2 complet ed [...] 017 K/mm3 ed monocyt 06:17 e count [place] % = 4.9 % 1.7-9.3 complet 017 [...] 017 K/mm3 ed monocyt 05:35 e count [place] % = 5.6 % 1.7-9.3 complet 017 [...] SQUARE METERS Comment: If this patient is -Stateless, then multiply the Comment: result by 1.210. [...] SQUARE METERS Comment: If this patient is -Stateless, then multiply the Comment: result by 1.210. [...] ACID 013 mg/dL ed 11:30 Glucose [facility] (08-19-2012 11:55) Glucose 166 70-110 complet BldC 013 mg/dl ed Glucomt 11:55 [facility] [address] Glucose dC [facility] (08-19-2012 06:34) Glucose 103 70-110 complet BldC 013 mg/dl ed [facility] 06:[facility] (08-19-2012 06:05) Glucose [...] K/MM3 ed Bld 06:05 [facility] 20:33[facility] Glucose 06-2 150 70-110 complet BldC 013 mg/dl ed Glucomt 20:33 r-nc Glucose [facility] (08-18-2012 17:05) Glucose 05-06-2 162 70-110 complet BldC 013 mg/dl ed Glucomt 17:05 r-nc Glucose dC [facility] (08-18-2012 11:49) Glucose 05-06-2 130 70-110 complet [...] #/hpf ed S CELLS 11:38 Glucose dC [facility] (08-18-2012 06:37) Glucose 05-06-2 108 70-110 complet BldC 013 mg/dl ed Glucomt 06:37 [facility] Glucose BldC [facility] (08-17-2012 21:07) Glucose 05-2 176 70-110 complet BldC 013 mg/dl ed Glucomt 21:07 r[facility] COMPREHENSIVE METABOLIC PANEL (08-17-2012 12:45) Glucose 05-2 [...] K/MM3 ed Bld 12:45 Auto Glucose BldC [facility] (06-01-2012 06:56) Glucose 101 70-110 complet BldC 013 mg/dl ed Glucomt 06:56 [facility] Glucose BldC [facility] (05-31-2012 20:27) Glucose 161 70-110 complet BldC 013 mg/dl ed Glucomt 20:27 [facility] Glucose BldC [facility] (05-31-2012 16:53) Glucose 115 70-110 complet BldC 013 mg/dl ed Glucomt 16:53 [facility] BASIC METABOLIC PANEL (05-31-2012 12:22) Glucose 114 [...] mg/dl ed Glucomt 06:22 r-mCnc Glucose BldC [facility] (05-30-2012 21:31) Glucose 163 70-110 complet BldC [...] K/MM3 ed Bld 06:32 Auto Glucose dC [facility] (05-29-2012 21:06) Glucose 148 70-110 complet BldC 013 mg/dl ed Glucomt 21:06 r[facility] Glucose BldC [facility] (05-29-2012 16:53) Glucose 110 70-110 complet BldC 013 mg/dl ed Glucomt 16:53 r[facility] Glucose BldC [facility] (05-29-2012 11:57) Glucose 177 70-110 complet BldC 013 mg/dl ed Glucomt 11:57 [facility] Glucose dC [facility] (05-29-2012 09:46) Glucose 139 70-110 complet BldC [...] Shaikh MD (ER) 3 20:50 3 21:50 [facility] Emergency VALERY Flowers MD (ER) 3 11:31 3 12:38 [facility] Emergency VALERY Shaikh MD (ER) 3 19:20 3 20:31 [facility] Inpatient OPAL Blanca ([place]) 3 12:50 3 14:20 [facility] Inpatient IMP Pipo Breaux MD (IN) 3 23:10 3 10:45 [facility]
--- OUTSIDE RECORDS SUMMARY | 2017-03-03 03:34 | External Medical Summary Rpt | CCD ---
Author Author , DWIGHT QUINTANILLA Address Unknown Phone [email or web address] Immunization Name Date Rout CVX Reac Dose [...]
--- OUTSIDE RECORDS SUMMARY | 2017-03-03 03:34 | External Medical Summary Rpt | CCD ---
Author Author , DWIGHT QUINTANILLA Address Unknown Phone [email or web address] Immunization Name Date Rout CVX Reac Dose [...]
--- OUTSIDE RECORDS SUMMARY | 2017-03-03 03:37 | External Medical Summary Rpt ---
Author Author [facility] Sharma, ANKUSHMISTY [employer] Organization [employer] Address Unknown Phone Unavailable Results Natriutietic peptide B [Mass/volume] in Serum or Plasma Observa Value Referen Units Interpr Notes Date tion ce etation Range Natriutie 0 - 100 pg/mL High No Mar 03 tic informati 2017 peptide B on in 12:47 AM source [Mass/vol data ume] in Serum or Plasma Cardiac enzymes Observa Value Referen Units Interpr Notes Date tion ce etation Range Creatine 0 - 4.0 U/L High No Mar 03 kinase.MB informati 2016 /Creatine on in 12:47 AM source kinase.to data leatha [Ratio] in Serum or Plasma Creatine 0.0 - 3.6 ng/mL Normal No Mar 03 kinase.MB informati 2017 on in 12:47 AM [Mass/vol source ume] in data Serum or Plasma Creatine 26 - 192 U/L Normal No Mar 03 kinase informati 2017 [Enzymati on in 12:47 AM c source activity/ data volume] in Serum or Plasma Troponin 0.00 - ng/mL Normal 0.04 - Mar 03 I.cardiac 0.06 0.49 IS 2017 AN 12:47 AM [Mass/vol INDETERMI ume] in NANT Serum [...] Albumin/G 1.1 - 1.8 No Low No Mar 03 lobulin informati informati 2016 [Mass on in on in 12:47 AM ratio] in source source Serum or data data Plasma Albumin 3.4 - 5.0 gm/dL Low No Mar 03 [Mass/vol informati 2017 ume] in on in 12:47 AM Serum or source Plasma data Alkaline 46 - 116 U/L High No Mar 03 phosphata informati 2016 se on in 12:47 AM [Enzymati source c data activity/ volume] in Serum or Plasma Bilirubin 0.2 - 1.0 mg/dL Normal No Mar 03 .total informati 2016 [Mass/vol on in 12:47 AM ume] in source Serum or data Plasma Urea 7 - 18 mg/dL High No Mar 03 nitrogen informati 2016 [Mass/vol on in 12:47 AM ume] in source Serum or data Plasma Calcium 8.5 - mg/dL Normal No Mar 03 [Mass/vol 10.1 informati 2016 ume] in on in 12:47 AM Serum or source Plasma data Chloride 98 - 107 mmoL/L Normal No Mar 03 [Moles/vo informati 2016 lume] in on in 12:47 AM Serum or source Plasma data Carbon 21.0 - mmoL/L Normal No Mar 03 dioxide, 32.0 informati 2016 total on in 12:47 AM [Moles/vo source lume] in data Serum or Plasma Creatinin 0.55 - mg/dL High No Mar 03 e 1.02 informati 2016 [Mass/vol on in 12:47 AM ume] in source Serum or data Plasma Creatinin 50 - 200 ML/MIN Normal No Mar 03 e renal inform2016 clearance on in 12:47 AM source predicted data by Cockcroft -Gault formula Estimated 59- ML/MIN Low REFERENCE Mar 03 RANGE: 2017 glomerula >60 12:47 AM r ML/MIN/1. filtratio 73 SQUARE n rate METERSIf (GF this patient is -A merican, then multiply theresult by 1.210. Globulin 1.3 - 3.2 gm/dL High No Mar 03 [Mass/vol informati 2017 ume] in on in 12:47 AM Serum source data Glucose 74 - 106 mg/dL Normal No Mar 03 [Mass/vol informati 2016 ume] in on in 12:47 AM Serum or source Plasma data Potassium 3.5 - 5.1 mmoL/L Normal No Mar 03 informati 2016 [Moles/vo on in 12:47 AM lume] in source Serum or data Plasma Sodium 136 - 145 mmoL/L Low No Mar 03 [Moles/vo informati 2017 lume] in on in 12:47 AM Serum or source Plasma data Aspartate 15 - 37 U/L Normal Mar [id number] aminotran on in 12:47 AM sferase source [Enzymati data c activity/ volume] in Serum or Plasma Alanine 12 - 78 U/L High No Mar 03 aminotran 2016 sferase on in 12:47 AM [Enzymati source c data activity/ volume] in Serum or Plasma Protein 6.4 - 8.2 gm/dL Normal Mar 03 [Mass/vol 2016 ume] in on in 12:47 AM Serum or source Plasma data Thyroxine (T4) [Mass/volume] in Serum or Plasma Observa Value Referen Units Interpr Notes Date tion ce etation Range Thyroxine 4.7 - ug/dl Normal Mar 03 (T4) 13.3 2016 [Mass/vol on in 12:47 AM ume] in source Serum or data Plasma Thyrotropin [Units/volume] in Serum or Plasma Observa Value Referen Units Interpr Notes Date tion ce etation Range Thyrotrop 0.358 - uIU/ml High Mar 03 in 3.740 2016 [Units/vo on in 12:47 AM lume] in source Serum or data Plasma CBC W Auto Differential panel in Blood Observa Value Referen Units Interpr Notes Date tion ce etation Range Basophils 0 - 0.2 K/MM3 Normal Mar 032016 [#/volume on in 12:47 AM ] in source Blood by data Automated count Basophils 0.1 - 2.0 % Normal Mar 032016 leukocyte on in 12:47 AM s in source Blood by data Automated count Eosinophi 0.0 - 0.4 K/mm3 Normal Mar 03 ls 2016 [#/volume on in 12:47 AM ] in source Blood by data Automated count Eosinophi 0.1 - % Normal Mar 03 ls/100 12.0 2016 leukocyte on in 12:47 AM s in source Blood by data Automated count Granulocy 1.8 - 7.8 K/mm3 Normal No Mar 03 lauryn 2016 [#/volume on in 12:47 AM ] in source Blood by data Automated count Granulocy 37.0 - % Normal Mar 03 lauryn/100 80.0 2016 leukocyte on in 12:47 AM s in source Blood by data Automated count Hematocri 37.0 - % Low No Mar 03 t [Volume 47.0 2016 on in 12:47 AM Fraction] source of Blood data Hemoglobi 12.2 - g/dL Low Mar 03 n 16.2 inform2016 [Mass/vol on in 12:47 AM ume] in source Blood data Lymphocyt 0.7 - 4.5 K/mm3 Normal No Mar 03 es 2016 [#/volume on in 12:47 AM ] in source Unspecifi data ed specimen by Automated count Lymphocyt 10 - 50.0 % Normal No Mar 03 es 2016 [#/volume on in 12:47 AM ] in source Unspecifi data ed specimen by Automated count Erythrocy 27 - 31.2 pg Low Mar 03 te mean 2016 corpuscul on in 12:47 AM ar source hemoglobi data n [Entitic mass] Erythrocy 31.8 - g/dl Low Mar 03 te mean 35.4 2016 corpuscul on in 12:47 AM ar source hemoglobi data n concentra tion [Mass/vol ume] by Automated count Erythrocy 82.2 - fl Low Mar 03 te mean 97.8 2016 corpuscul on in 12:47 AM ar volume source [Entitic data volume] by Automated count Monocytes 0.1 - 1.0 K/mm3 Normal No Mar [id number] [#/volume on in 12:47 AM ] in source Blood by data Automated count Monocytes 1.7 - 9.3 % Normal No Mar 03 /100 2016 leukocyte on in 12:47 AM s in source Blood by data Automated count Platelet 7.4 - fl Low Mar 03 mean 10.4 2016 volume on in 12:47 AM [Entitic source volume] data in Blood by Automated count Platelets 142 - 424 K/mm3 No Mar 03 informati informati 2016 [#/volume on in on in 12:47 AM ] in source source Blood data data Erythrocy 4.2 - 5.4 M/mm3 Normal No Mar 03 lauryn 2016 [#/volume on in 12:47 AM ] in source Amniotic data fluid Erythrocy 11.5 - % High Mar 03 te 17.5 2016 distribut on in 12:47 AM ion width source [Entitic data volume] by Automated count Leukocyte 4.8 - K/MM3 Normal No Mar 03 s 10.8 informati 2016 [#/volume on in 12:47 AM ] in source Blood data Comprehensive [...] U/L High No Feb 25 phosphata informati 2016 3:06 se on in PM [Enzymati source c data activity/ volume] in Serum or Plasma Bilirubin 0.2 - 1.0 mg/dL Normal No Feb 25 .total informati 2016 3:06 [Mass/vol on in PM ume] in source Serum or data Plasma Urea 7 - 18 mg/dL High No Feb 25 nitrogen informati 2016 3:06 [Mass/vol on in PM ume] in source Serum or data Plasma Calcium 8.5 - mg/dL Normal No Feb 25 [Mass/vol 10.1 informati 2016 3:06 ume] in on in PM Serum or source Plasma data Chloride 98 - 107 mmoL/L Normal No Feb 25 [Moles/vo informati 2016 3:06 lume] in on in PM Serum or source Plasma data Carbon 21.0 - mmoL/L Normal No Feb 25 dioxide, 32.0 informati 2016 3:06 total on in PM [Moles/vo source lume] in data Serum or Plasma Creatinin 0.55 - mg/dL High No Feb 25 e 1.02 informati 2016 3:06 [Mass/vol on in PM [...] Potassium 3.5 - 5.1 mmoL/L High No Feb 25 informati 2016 3:06 [Moles/vo on [...] specimen Observa Value Referen Units Interpr Notes tion ce etation Range Acetamino 10 - 30 ug/mL Low No Feb 17 phen informati 2016 4:00 [Mass/vol on in AM ume] in source Unspecifi data ed specimen Ethanol [Mass/volume] in Serum or Plasma Observa Value Referen Units Interpr Notes tion ce etation Range Ethanol 0 - 99 mg/dL Normal ANY Feb 17 [Mass/vol ALCOHOL > 2017 4:00 ume] in OR = 80 AM Serum or MG/DL IS Plasma CONSIDERE D LEGALLYIN TOXICATED UNDER [place] LAW. Comprehensive metabolic 2000 panel in Serum or Plasma Observa Value Referen Units Interpr Notes Date tion ce etation Range Albumin/G 1.1 - 1.8 No Low No Feb 17 lobulin informati informati 2016 4:00 [Mass on in on in AM ratio] in source source Serum or data data Plasma Albumin 3.4 - 5.0 gm/dL Low No Feb 17 [Mass/vol informati 2017 4:00 ume] in on in AM Serum [...] formula Estimated 59- ML/MIN Low REFERENCE Feb 17 RANGE: 2017 4:00 glomerula >60 AM r [...] data Aspartate 15 - 37 U/L Normal No Feb 17 informati 2016 4:00 aminotran on in AM sferase source [Enzymati data c activity/ volume] in Serum or Plasma Alanine 12 - 78 U/L Normal No Feb 17 aminotran informati 2016 4:00 sferase on in AM [Enzymati source c data activity/ volume] in Serum or Plasma Protein 6.4 - 8.2 gm/dL Normal No Feb 17 [Mass/vol informati 2016 4:00 [...] needed. Ampheta NEGATIV <1000 ng/mL No No Feb 17 mine E informa informa 2016 [Presen tion in tion in 4:00 AM ce] in source source Urine data data by Screen method Barbitura <200 ng/mL No No Feb 17 lauryn informati informati 2016 4:00 [Mass/vol on in on in AM ume] in source source Urine by data data Screen method Benzodiaz 200 ng/mL ng/mL No No Feb 17 epines informati informati 2016 4:00 [Mass/vol on in on in AM ume] in source source Serum or data data Plasma by Screen method Cocaine <300 ng/g No No Feb 17 [Mass/vol informati informati 2016 4:00 ume] in on in on in AM Unspecifi source source ed data data specimen Methadone <300 ng/mL No No Feb 17 informati informati 2016 4:00 [Mass/vol on in on in AM ume] in source source Unspecifi data data ed specimen Opiates <300 ng/mL High This is Feb 17 [Mass/vol an 2016 4:00 ume] in UNCONFIRM AM Unspecifi ED [...] No No Nov 5 E informa informa 2017 [Presen tion in tion in 4:00 AM ce] in source source Urine data data by Automat ed test strip Mucus NEGATIV NEG No No No Nov 5 [Presen E informa informa informa 2017 ce] in tion in tion in tion in 4:00 AM Urine source source source sedimen data data data t by Light microsc opy Nitrite NEGATIV NEG No No No Nov 5 E informa informa informa 2017 [Presen tion [...] No Nov 5 of informa informa informa 2016 Urine tion in tion in tion in [...] K/mm3 Normal No Nov 5 ls informati 2017 4:00 [#/volume on in AM [...] K/mm3 High No Nov 5 es informati 2016 4:00 [#/volume on in AM ] in source Unspecifi data ed specimen by Automated count Lymphocyt 10 - 50.0 % Normal No Nov 5 es informati 2016 4:00 [#/volume on in AM ] in source Unspecifi data ed specimen by Automated count Erythrocy 27 - 31.2 pg Low No Nov 5 te mean informati 2016 4:00 corpuscul on in AM ar source hemoglobi data n [Entitic mass] Erythrocy 31.8 - g/dl Low No Nov 5 te mean 35.4 informati 2016 4:00 corpuscul on in AM ar source [...] Monocytes 1.7 - 9.3 % Normal No Nov 5 /100 informati 2016 4:00 leukocyte on in AM s in source Blood by data Automated count Platelet 7.4 - fl Normal No Nov 5 mean 10.4 informati 2016 4:00 volume on in AM [Entitic source volume] data in Blood by Automated count Platelets 142 - 424 K/mm3 High No Feb 5 informati 2016 4:00 [#/volume on in [...] Leukocyte 4.8 - K/MM3 High No Feb 17 s 10.8 informati 2016 4:00 [#/volume on in AM ] in source Blood data Gas panel in Arterial blood Observa Value Referen Units Interpr Notes Date tion ce etation Range Base -2.4-+2.3 MMOL/L Low No Oct 23 excess in informati 2017 5:10 Arterial on in AM blood source data Bicarbona 22.0 - MMOL/L Low No Jan 23 te 26.0 informati 2017 5:10 [Moles/vo on in AM lume] in source Arterial data blood Oxygen No No No No Oct 23 content informati informati informati informati 2017 5:10 in on in on in on in on in AM Arterial source source source source blood data data data data Carbon 35.0 - MMHG High No Feb 04 dioxide 45.0 informati 2016 5:10 [Partial on in AM pressure] source in data Arterial blood Phenytoin No No No No Jan 23 informati informati informati informati 2016 5:10 [Mass/vol on in on in on in on in AM ume] in source source source source Serum or data data data data Plasma pH of 7.35 - MMOL/L Low No Oct 23 Arterial 7.45 informati 2016 5:10 blood on in AM source data [...] blood TIDAL 400 No No No No Jan 23 VOLUME informa informa informa informa 2017 tion in tion in tion in tion in 5:10 AM source source source source data data data data Respirato No No No No Feb 04 ry rate informati informati informati informati 2017 5:10 --at on in on in on [...] 0.00 - ng/mL High 0.04 - Jan 23 I.cardiac 0.06 0.49 IS 2017 4:30 AN [...] 70 - 110 mg/dl High No Jan 23 [Mass/vol informati 2017 2:28 ume] in on in AM Capillary source blood by data Glucomete r Gas panel in Arterial blood Observa Value Referen Units Interpr Notes Date ti ce etation Range Base -2.4-+2.3 MMOL/L Low No Oct 23 excess in informati 2017 Arterial on in 12:57 AM blood source data Arteria Y No No No No Jan 23 l informa informa informa informa 2017 patency tion in tion in tion in tion in 12:57 Wrist source source source source AM artery data data data data --pre arteria l punctur e Bicarbona 22.0 - MMOL/L Low No Feb 04 te 26.0 informati 2016 [Moles/vo on in 12:57 AM lume] in source Arterial data blood Oxygen No No No No Jan 23 content informati informati informati informati 2017 in [...] Oxygen 90 - 100 % Low No Jan 23 saturatio informati 2017 n.calcula on in 12:57 [...] Normal No Feb 03 kinase.MB informati 2016 /Creatine on in 11:05 PM source kinase.to data leatha [Ratio] in Serum or Plasma Creatine 0.0 - 3.6 ng/mL High No Oct 22 kinase.MB informati 2017 on in 11:05 PM [Mass/vol source ume] in data Serum or Plasma Creatine 26 - 192 U/L High No Oct 22 kinase informati 2016 [Enzymati on in 11:05 [...] e Bicarbona 22.0 - MMOL/L Low No Jan 22 te 26.0 informati 2016 [Moles/vo on in 11:04 PM lume] in source Arterial data blood Oxygen No No No No Oct 22 content informati informati informati informati 2017 in on in on in on in on in 11:04 PM Arterial source source source source blood data data data data Carbon 35.0 - MMHG Normal No Feb 03 dioxide 45.0 informati 2016 [Partial on in 11:04 PM pressure] source in data Arterial blood pH of 7.35 - MMOL/L Low No Jan 22 Arterial 7.45 informati 2017 blood on in 11:04 PM source data Oxygen 80 - 100 MMHG Low No Feb 03 [Partial informati 2017 pressure] on in 11:04 [...] Low No Feb 03 lobulin informati informati 2017 8:50 [Mass on [...] Normal No Feb 03 [Mass/vol 10.1 informati 2016 8:50 ume] in on in [...] Normal No Feb 03 e renal informati 2016 8:50 clearance on in PM source predicted [...] time MATTHIEU (aPTT) RJ in 02/03/17 Platelet 2138 poor Yu,Rosibel plasma [...] 02/03/17 Feb 03 n 16.2 informati 2133:HGB 2016 8:50 [Mass/vol on in previousl PM ume] [...] 1.0 K/mm3 Normal No Feb 03 informati 2017 8:50 [#/volume on in PM ] in source Blood by data Automated count Monocytes 1.7 - 9.3 % Normal No Feb 03 / informati 2017 8:50 leukocyte on in PM s in source Blood by data Automated count Platelet 7.4 - fl Normal No Feb 03 mean 10.4 informati 2017 8:50 volume on in PM [Entitic source [...] 70 - 110 mg/dl High No Jan 22 [Mass/vol informati 2017 8:44 ume] in on in PM Capillary [...] mg/dl High No Jan 31 [Mass/vol informati 2017 ume] in on in 11:23 AM Capillary source blood by data Glucomete r Comprehensive metabolic 2000 panel in Serum or Plasma Observa Value Referen Units Interpr Notes Date tion ce etation Range Albumin/G 1.1 - 1.8 No Low No Jan 31 lobulin informati informati 2017 7:00 [Mass on [...] - 1.0 K/mm3 Normal No Jan 31 inform2016 7:00 [...] High No Jan 30 [Mass/vol informati 2017 5:07 ume] in on in PM Capillary source blood by data Glucomete r Glucose [Mass/volume] in Capillary blood by Glucometer Observa Value Referen Units Interpr Notes Date tion ce etation Range Glucose 70 - 110 mg/dl High No Jan 18 [Mass/vol informati 2017 ume] in on in 11:38 AM Capillary [...] mg/dl Normal No Jan 29 [Mass/vol informati 2017 5:11 ume] in on in PM Capillary source blood by data Glucomete r Glucose [Mass/volume] in Capillary blood by Glucometer Observa Value Referen Units Interpr Notes Date ti ce etation Range Glucose 70 - 110 mg/dl Normal No Jan 17 [Mass/vol informati 2016 ume] in on in 11:57 AM Capillary source blood by data Glucomete r CBC W Auto Differential panel in Blood Observa Value Referen Units Interpr Notes Date tion ce etation Range Basophils 0 - 0.2 K/MM3 Normal No Jan 17 informati 2016 9:20 [#/volume on in AM ] in source Blood by data Automated count Basophils 0.1 - 2.0 % Normal No Oct 17 /100 informati 2017 9:20 leukocyte on in AM s in source Blood by data Automated count Eosinophi 0.0 - 0.4 K/mm3 Normal No Jan 17 ls informati 2016 9:20 [#/volume on in AM ] in source Blood by data Automated count Eosinophi 0.1 - % Normal No Jan 29 ls/100 12.0 informati 2017 9:20 leukocyte on [...] No Jan 29 t [Volume 47.0 informati 2017 9:20 on in AM Fraction] source of Blood data Hemoglobi 12.2 - g/dL Low No Jan 29 n 16.2 informati 2017 9:20 [Mass/vol on in AM ume] in source Blood data Lymphocyt 0.7 - 4.5 K/mm3 Normal No Jan 29 es informati 2017 9:20 [#/volume on in AM ] in source Unspecifi data ed specimen by Automated count Lymphocyt 10 - 50.0 % Low No Jan 29 es informati 2016 9:20 [#/volume on in AM ] in source Unspecifi data ed specimen by Automated count Erythrocy 27 - 31.2 pg Low No Jan 17 te mean informati 2017 9:20 corpuscul on in AM ar source hemoglobi data n [Entitic mass] Erythrocy 31.8 - g/dl Low No Jan 29 te mean 35.4 informati 2017 9:20 corpuscul on in AM ar source hemoglobi data n concentra tion [Mass/vol ume] by Automated count Erythrocy 82.2 - fl Low No Jan 29 te mean 97.8 informati 2016 9:20 corpuscul on in AM ar volume source [Entitic data volume] by Automated count Monocytes 0.1 - 1.0 K/mm3 Normal No Jan 29 inform2016 9:20 [#/volume on in AM ] in source Blood by data Automated count Monocytes 1.7 - 9.3 % Normal No Jan 29 informati 2016 9:20 leukocyte on in AM s in source Blood by data Automated count Platelet 7.4 - fl Normal No Jan 29 mean 10.4 inform2016 9:20 volume on in AM [Entitic source volume] data in Blood by Automated count Platelets 142 - 424 K/mm3 Normal No Jan 29 inform2016 9:20 [#/volume [...] 8 % Normal No Jan 29 ls.band ati 2016 9:20 form/100 on in AM leukocyte source s in data Blood by Automated count Eosinophi 0 - 3 % Normal No Jan 29 ls/100 ati 2016 9:20 leukocyte on in AM s [...] Jan 29 ts informa informa informa informa 2017 [Presen tion in [...] No Jan 29 Counted informati informati informati 2017 9:20 Total [...] U/L High No Jan 29 phosphata informati 2017 9:20 se on in [...] Normal No Jan 29 dioxide, 32.0 informati 2017 9:20 total on in AM [Moles/vo source lume] in data Serum or Plasma Creatinin 0.55 - mg/dL High No Jan 29 e 1.02 informati 2017 9:20 [Mass/vol on [...] - 5.1 mmoL/L Normal No Jan 29 inform2016 9:20 [Moles/vo on in AM lume] in [...] Normal No Oct 16 [Mass/vol informati 2017 ume] in on [...] % Normal No Oct 16 saturatio informati 2016 8:00 n.calcula on [...] Interpr Notes Date ti ce etation Range COMMENTS TO CLUB ROOM ATTENDANT: 0600 Basophils 0 - 0.2 K/MM3 Normal No Oct 16 informati 2016 6:17 [#/volume on in AM ] in source Blood by data Automated count Basophils 0.1 - 2.0 % Normal No Oct 16 /100 informati [...] No Jan 16 te mean 97.8 informati 2017 6:17 [...] 424 K/mm3 Normal No Jan 16 informati 2017 [...] Date tion ce etation Range COMMENTS TO CLUB ROOM ATTENDANT: 0600 Albumin/G 1.1 - 1.8 No Low [...] High No Oct 16 e 1.02 informati 2016 6:17 [Mass/vol on in AM ume] in source Serum or data Plasma Creatinin 50 - 200 ML/MIN Low No Jan 16 e renal informati 2016 6:17 clearance on in AM source predicted [...] U/L No No Jan 16 informati informati 2016 6:17 aminotran on in [...] mg/dl High No Jan 27 [Mass/vol informati 2016 6:38 ume] in on [...] 7.8 K/mm3 Normal No Jan 27 lauryn ati 2016 5:35 [#/volume on in AM ] in source Blood by data Automated count Granulocy 37.0 - % Normal No Jan 27 lauryn/100 80.0 informati 2016 5:35 leukocyte on in AM s in source Blood by data Automated count Hematocri 37.0 - % Low No Jan 27 t [Volume 47.0 ati 2016 5:35 on in AM Fraction] source of Blood data Hemoglobi 12.2 - g/dL Low No Jan 27 n 16.2 informati 2016 5:35 [Mass/vol on in AM ume] in source Blood data Lymphocyt 0.7 - 4.5 K/mm3 Normal No Oct 15 es informati 2016 5:35 [#/volume on [...] - 424 K/mm3 Normal No Jan 15 inform2016 5:35 [#/volume on in AM ] in [...] 0.4 K/mm3 Normal No Sep 15 ls inform2016 [#/volume on in 10:20 PM ] in source Blood by data Automated count Eosinophi 0.1 - % Normal No Sep 15 ls/100 12.0 inform2016 leukocyte on in 10:20 PM s in source Blood by data Automated count Granulocy 1.8 - 7.8 K/mm3 Normal No Sep 15 luaryn inform2016 [#/volume on in 10:20 PM ] [...] 4.5 K/mm3 Normal No Sep 15 es inform2016 [#/volume on in 10:20 PM ] in source Unspecifi data ed specimen by Automated count Lymphocyt 10 - 50.0 % Normal No Sep 15 es inform2016 [#/volume on in 10:20 PM ] [...] - 1.0 K/mm3 Normal No Sep 15 inform 2017 [#/volume on in 10:20 PM ] in source Blood by data Automated count Monocytes 1.7 - 9.3 % Normal No Sep 15 /100 inform [...] 5.4 M/mm3 Normal No Sep 15 lauryn inform 2017 [...] High No Sep 8 dioxide, 32.0 informati 2017 7:06 total on in AM [Moles/vo source [...] K/mm3 Normal No Sep 8 lauryn informati 2017 7:06 [#/volume on in AM ] in source Blood by data Automated count Granulocy 37.0 - % Normal No Sep 8 lauryn/100 80.0 informati 2017 7:06 leukocyte on in AM [...] Erythrocy 11.5 - % Normal No Dec 8 te 17.5 informati 2016 7:06 distribut on in AM ion width source [Entitic data volume] by Automated count Leukocyte 4.8 - K/MM3 Normal No Dec 8 s 10.8 informati 2016 7:06 [#/volume [...] 5.1 mmoL/L Normal No Dec 04 informati 2016 1:25 [Moles/vo on in PM lume] in [...] 0.2 K/MM3 Normal No Dec 04 informati 2016 1:25 [...] data fluid Erythrocy 11.5 - % Normal Dec 04 te 17.5 informati 2016 1:25 [...]
--- OUTSIDE RECORDS SUMMARY | 2017-03-03 03:37 | External Medical Summary Rpt ---
[...] IS Plasma CONSIDERE D LEGALLYIN TOXICATED UNDER [place] LAW. Comprehensive metabolic 2000 panel in [...] Date ti ce etation Range COMMENTS TO COMMUNITY RELATIONS REPRESENTATIVE: 0600 Basophils 0 - 0.2 K/MM3 Normal [...] Date tion ce etation Range COMMENTS TO COMMUNITY RELATIONS REPRESENTATIVE: 0600 Albumin/G 1.1 - 1.8 No Low [...]
--- NOTE | 2017-03-03 08:19 | ACUTE CARE PROGRESS NOTE (QUA) ---
Progress Notes Subjective Date 03/03/17 Time 0817 Note On rounds this morning patient is sitting up on the side of the bed, her first statement is "I want to go home." She states that she came to the hospital for heartburn, and that if she goes home she will sit still and not do anything and feels fine. Heart rate is in the low 110 range and atrial fibrillation. This is really not so far off from her normal rate, and she is in chronic atrial fibrillation. Her lungs are clear, her feet are swollen but at baseline. Objective Findings Last VS-Temp:97.5 B/P:142/87 Pulse:114 Resp:22 SaO2:98 ROOM AIR Last weight lbs:219 oz:8 K.564 Method:Bed Scales Assessment/Plan Problem List 1. Atrial fibrillation Patient condition Stable, patient's clinical condition is about her baseline. I think she can safely go home today but I will give her a dose of by mouth diltiazem, stop her drip and about an hour and reassess early afternoon. Lasix for her mild swelling.one dose of gabapentin this morning for her neuropathy issues. Plan for discharge. This inpt stay is expected to cross 2 MNs from start of care No at 0818
--- NOTE | 2017-03-03 12:23 | PHARMACY CLINIC NOTE ---
Patient Demographics Patient Demographics Admission date: 03/03/17 Date: 03/03/17 Time: 1218 Allergies Coded Allergies: Sulfa (Sulfonamide Antibiotics) (Intermediate, I-HIVES 07/17/16) HEIGHT- FT: 5 IN: 7.00 K.564 VTE General Information Labs: Laboratory Tests 03/03 004 Hematology Hgb (12.2 - 16.2 g/dL) 10.8 L Hct (37.0 - 47.0 %) 36.7 L Plt Count (142 - 424 K/mm3) 295 Disclaimer The following section includes nursing documentation that has been pulled in for pharmacy review. Patient's VTE score: 6 Patient's VTE Risk: MOD RISK Clinical trial participant? No VTE prophylaxis NQF [id number] VTE prophylaxis ordered? Yes Type of prophylaxis/treatment: JULIANNE at 1222
--- NOTE | 2017-03-03 13:19 | RADIOLOGY REPORT PS360 ---
CHEST-PORTABLE Ordering Physician: Leanne Shaikh MD Patient Age: 66 years: Female HISTORY: HEARTBURN TECHNIQUE: AP portable upright chest film COMPARISON :06/07/2016 CXR also August 07, 2016 FINDINGS The patient is been sedated. ET tube removed since prior study. LEFT lung has shown progressive improvement and clearing since the prior chest film and has return to baseline appearance seen July 2016.. The infiltrate previously seen at the left lung base has resolved with left hemidiaphragm now well defined, well delineated.. The infiltrate at the RIGHT infrahilar region towards right base I believe is improved. . Residual minimal Density towards the right cardiophrenic angle appear stable since July 2016 most likely reflect chronic changes/scarring in this region.. No convincing acute infiltrate seen today.. Postsurgical changes right suprahilar region from previous right upper lobectomy. Associated postsurgical changes of chest with splaying of the fourth-fifth ribs posteriorly from the previous thoracotomy. Elevation right hemidiaphragm reflecting volume loss of the right hemithorax . Mild cardiomegaly. Hilar regions and mediastinum unchanged. IMPRESSION: No acute findings. Today's chest film appears stable when compared to 08/07/2016 portable CXR. .. Postsurgical changes from right upper lobectomy again noted.Cardiomegaly
--- NOTE | 2017-03-03 13:52 | Discharge Summary Standard ---
Demographics: Admit date: 03/02/17 Chief complaint: Heartburn PRIMARY DIAGNOSIS: AFIB Allergies: Coded Allergies: Sulfa (Sulfonamide Antibiotics) (Intermediate, I-HIVES 07/17/16) History of present illness: History of present illness: 66-year-old white female with multiple medical problems including cardiomyopathy , chronic atrial fibrillation on anticoagulation therapy and chronic atrial fibrillation who presented to the emergency department with a chief complaint of heartburn. She was found to have atrial fibrillation in the 120 range, [facility] When I examined her this morning, her initial sentence was "please let me go home." She states she feels no worse than she normally does, and that when she is resting she feels fine. She has no further palpitations, heartburn pain, and notes her leg swelling has improved over baseline. Interestingly, her son reports that he has not been giving her her "heart pill " as prescribed, there's been multiple issues with medication noncompliance or over usage at home as she has been in and out of the prison and her recently and she is currently living with her son and his . Past medical history: Family HX Diabetes Yes CAD Yes Hypertension Yes Hyperlipidemia Yes Cancer Yes TB No Immunization HX DT/Tetanus 10/15/12 Flu 2017-18FSN Pneumonia Received In Past TB Test in last year No General CAD? No Angina: No [place]: No Hypertension? Yes Hyperlipidemia? Yes CHF? Yes DVT? No PE? No COPD? Yes Asthma? Yes Anemia? No GERD? No Gastric ulcers? No GI Bleed? No Hernia? No Thyroid Problems? Yes Hypothyroidism? Yes CVA? No Seizures? Yes Diabetes? Yes Insulin Dependent: No Insulin Pump: No Home FSBS? No Renal Insuffiency? Yes UTI? Yes Stones? No BPH? No GB Disease: No Nephritic Syndrome? No Asplenia? No Hepatitis? No Sickle Cell Disease? No Arthritis? Yes Migraines? No Cataracts? Yes Glaucoma? No MRSA? No HIV? No TB? No Anxiety? Yes Depression? Yes Cancer? Yes Site: LUNG, SKIN CA More? 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 Current home meds: Active Scripts Apixaban (Eliquis) 2.5 MG PO BID #60 TAB Ref 1 Prov: 07/13/16 ROPINIROLE HCL (Requip) 4 MG PO QHS #30 TAB Ref 1 Prov: 02/01/17 HYDROCODONE/ACETAMINOPHEN (LORTAB 5-325 (generic)) 1 TAB PO TIDP PRN PAIN #60 TAB Prov: 02/01/17 Gabapentin (Neurontin) 200 MG PO TID #120 CAPSULE Ref 1 Prov: 02/01/17 Quetiapine Fumarate (Seroquel Xr) 200 MG PO QHS #30 Ref 1 Prov: 02/01/17 TRIAMCINOLONE ACET 0.1% (Triamcinolone Acetonide) 1 SERGO TP BID 7 Days Prov: 07/28/16 Reported Medications Metformin HCL (Metformin) 500 MG PO BID #60 TAB Paroxetine (Paxil) 40 MG PO QHS Conjugated Estrogens (Premarin 0.3MG. Tablet) 0.3 MG PO DAILY LISINOPRIL (Lisinopril) 2.5 MG PO DAILY Levothyroxine Sodium (Levothyroxine) 0.05 MG PO DAILY DILTIAZEM HCL (Cartia Xt) 240 MG PO DAILY #30 CAP Albuterol Sulfate (Ventolin Hfa) 2 PUFF IH QIDP Albuterol-Ipratropium (Duoneb 0.5 MG-3 MG/3 Ml Soln) 3 ML IN TID Sucralfate (Carafate) 1 GM PO TID Lansoprazole (Lansoprazole) 30 MG PO DAILY Device (Oxygen (Concentrator)) 1 UNIT XX UD #2 Montelukast Sodium (Singulair) 10 MG PO QHS MAGNESIUM OXIDE (Magnesium Oxide) 400 MG PO QHS Atorvastatin Calcium (Atorvastatin) 80 MG PO QHS Social Hx: Smoking HX Tobacco Yes Type Cigarettes Packs/day 1 1/2 - 2 PACKS Alcohol Alcohol: No Hx of Drug Use Drug Use? No Patien't marital status is Patient's support system is good Comment: Multiple issues with cognitive/processing problems with her understanding of medications and diet issues. Review of systems: Constitutional malaise, weakness. No: fever. Respiratory No: no symptoms reported. Cardiovascular see HPI Gastrointestinal/Abdominal No no symptoms reported Genitourinary No: no symptoms reported. Musculoskeletal joint pain, joint swelling, muscle pain, muscle stiffness. Neurological Yes: parasthesia. No: tingling, tremors. Exam: Lab data for last 24 hours: Laboratory Tests 03/03/1746: TSH 6.91 H, Thyroxine (T4) 6.5 03/03/1746: Sodium 132 L, Potassium 4.7, Chloride 100, Carbon Dioxide 28, BUN 28 H, Creatinine 1.1 H, Estimated Creat Clear 74, Estimated GFR (MDRD) 50 L, Glucose 105, Calcium 8.8, Total Bilirubin 0.4, AST 36, ALT 83 H, Alkaline Phosphatase 159 H, Creatine Kinase 47, CK-MB (CK-2) Rel Index 5.1 H, CK and CKMB Interp 2.4, Troponin I 0.06, B-Natriuretic Peptide 481 H, Total Protein 6.9, Albumin 2.8 L, Globulin 4.1 H, Albumin/Globulin Ratio 0.7 L, WBC 10.6, RBC 4.81, Hgb 10.8 L, Hct 36.7 L, MCV 76.3 L, RDW 18.6 H, Plt Count 295, MPV 7.3 L, Gran % 57.5, Gran # 6.1, Lymphocytes % 31.6, Monocytes % 8.1, Eosinophils % 2.4, Basophils % 0.4, Lymphocytes # 3.3, Monocytes # 0.9, Eosinophils # 0.3, Basophils # 0.1, PUBS MCHC 29.3 L, MCH 22.4 L Admission vital signs: 1ST Vital Signs Result Date Time Pulse Ox 98 03/03 39 Pulse 103 03/03 39 Resp 18 03/03 39 B/P 149/89 03/03 49 Temp 97.8 03/03 49 O2 Delivery ROOM AIR 03/03 400 Additional information: Patient is awake, oriented x3, sitting on the side of the bed in no acute distress, heart rate 110 in atrial fibrillation. Blood pressure in the 120 range systolic. Lungs are clear, heart rate irregular, abdomen soft with obesity limits her exam. Legs have 1+ edema, slightly better than baseline, healing [place] lesion from previous abrasion noted. Hospital Course Hospital Course: Patient was admitted, BNP levels and troponin levelswere done, BNP levels were slightly high but not alarmingly so. Troponin was negative. Cardizem drip did not change her heart rate much. This morning she was transitioned to p.o. Cardizem and felt well. She demanded to be discharged and essentially stated that she would sign out AGAINST MEDICAL ADVICE if she was discharged. I don't think this would be reasonable so we have transitioned to p.o. Cardizem, one dose of Lasix was given with a brisk diuresis and she felt better. She is already on anticoagulation therapy. She will resume taking her diltiazem at home and I will see her in short-term followup. Medications Medications: Discharge meds are as noted. Follow up Follow up in office in: 3 DAYS with: Abhishek Breaux MD at [id number]
== END 2017-03-03 13:10 | disposition home or self-care (01) ==
LOC: ER 00:33 → 2ND 03:16 → ER 03:16 → 2ND 03:41
PROVIDERS: Emergency Medicine
DX: I48.2 Chronic atrial fibrillation (principal); R12 Heartburn; T50.996A Underdosing of other drugs, medicaments and biological substances, initial encounter; I42.9 Cardiomyopathy, unspecified; J44.9 Chronic obstructive pulmonary disease, unspecified; E11.9 Type 2 diabetes mellitus without complications; H91.90 Unspecified hearing loss, unspecified ear; E03.9 Hypothyroidism, unspecified; E78.5 Hyperlipidemia, unspecified; F41.9 Anxiety disorder, unspecified; F32.9 Major depressive disorder, single episode, unspecified; I10 Essential (primary) hypertension; F17.210 Nicotine dependence, cigarettes, uncomplicated; Z79.01 Long term (current) use of anticoagulants; Z88.2 Allergy status to sulfonamides; Z85.118 Personal history of other malignant neoplasm of bronchus and lung; Z85.828 Personal history of other malignant neoplasm of skin; Z79.84 Long term (current) use of oral hypoglycemic drugs; Z79.890 Hormone replacement therapy; Z79.899 Other long term (current) drug therapy; Z91.128 Patient's intentional underdosing of medication regimen for other reason; Z83.3 Family history of diabetes mellitus; Z82.49 Family history of ischemic heart disease and other diseases of the circulatory system; Z83.49 Family history of other endocrine, nutritional and metabolic diseases; Z80.9 Family history of malignant neoplasm, unspecified
CPT/HCPCS: G0378

== ENCOUNTER 2017-03-09 05:54 | Emergency (ER) | payer MEDICARE, MEDICAID ==
[~2017-03-09] VITALS: Ht 170.2 cm; Wt 99.8 kg
[2017-03-09 06:15] LABS: HEMOGLOBIN 11.1 g/dL (12.2-16.2); LYMPH # 1.3 K/mm3 (0.7-4.5); LYMPH % 13.2 % (10-50.0)
--- OUTSIDE RECORDS SUMMARY | 2017-03-09 06:19 | External Medical Summary Rpt | CCD ---
Author Author , DWIGHT QUINTANILLA Address Unknown Phone [email or web address] Care Team Providers Care Anchorman Name Role Phone Leanne Shaikh MD, Unavailable Unavailable Leanne Blanca MD, Unavailable Unavailable Eduin Blanca MD Purpose Continuity of Care Document - 05-28-2012 through 2016 Problems Code Diagnosis DOS Provider Status 162.9 276.8 Hypokalemia [facility] 416.9 Cor [place] [facility] [id number] 585.9 [id number] [facility] [place] [facility] [id number] Chronic [facility] E66.9 OBESITY, UNSPECIFIED E86.0 DEHYDRATION F41.9 [...] RO 07 -0 SE 90 6- Lo CA 07 20 ng DE 32 13 er [...] 5 ti MG ve TA BL ET CA 11 05 1 No RA 52 -0 [...] TF 07 -0 OR 90 5- Lo CA 17 20 ng N 22 13 er [...] RO 40 -1 SE 96 4- Lo CA 10 20 ng DE 20 13 er [...] TF 07 -1 OR 90 4- Lo CA 17 20 ng N 22 13 er [...] t Range on Glucose capillary blood glucometer (03-03-2017 12:12) Glucose = 127 70-110 complet 017 mg/dl ed capilla 12:[address] Glucose capillary blood glucometer (03-03-2017 07:13) Glucose = 111 70-110 complet 017 mg/dl ed capilla 07:[address] CBC w auto diff (03-03-2017 00:47) Automat [...] ed count, 00:47 blood, automat ed Mean 11-19-2 = 22.4 27-31.2 complet corpusc 017 pg ed ular 00:47 hemoglo bin ([facility]) determ Automat = 29.3 31.8-35 complet ed 017 g/dl .4 ed erythro 00:47 cyte mean corpusc ular h Automat = 76.3 82.2-97 complet ed 017 fl .8 ed erythro 00:47 cyte mean corpusc ular v Absolut = 0.9 0.1-1.0 complet e 017 K/mm3 ed monocyt 00:47 e count Otero % = 8.1 % 1.7-9.3 complet 017 [...] plasma thyroid stimulating horm (03-03-2017 00:47) Serum 2 = 6.91 0.358-3 complet or 017 uIU/ml .740 ed plasma 00:47 thyroid stimula ting horm Brain natriuretic peptide (03-03-2017 00:47) Brain = 481 0-100 complet natriur 017 pg/mL ed etic 00:47 peptide Cardiac enzymes (03-03-2017 00:47) Serum 03-03-2 = 5.1 0-4.0 complet or 017 U/L ed plasma 00:47 creatin e kinase MB (CK-M Serum 11-19-2 = 2.4 0.0-3.6 complet or 017 ng/mL ed plasma 00:47 creatin e kinase MB measu Serum 03-03- = 47 26-192 complet or 017 U/L ed plasma 00:47 creatin e kinase measure m Serum 03-03-2 = 0.06 0.00-0. complet or 017 ng/mL [...] fib. Comprehensive metabolic panel (03-03-2017 00:47) Serum 11--2 = 0.7 1.1-1.8 complet or 017 ed plasma 00:47 albumin /globul in mass ra Serum 03-03-2 = 2.8 3.4-5.0 complet or 017 gm/dL ed plasma 00:47 albumin measure ment (mas Serum = 159 46-116 complet or 017 U/L [...] mmoL/L .0 ed 00:47 measure ment Serum 03-03-2 = 1.1 0.55-1. complet or 017 mg/dL 02 ed plasma 00:47 creatin ine measure ment ( Estimat = 74 50-200 complet ion of 017 ML/MIN ed creatin 00:47 ine renal clearan ce Estimat 11-19-2 = 50 59- complet ed 017 ML/MIN ed glomeru 00:47 lar filtrat ion rate (GF Comment: REFERENCE RANGE: >60 ML/MIN/1.73 SQUARE METERS Comment: If this patient is -Iranian, then multiply the Comment: result by 1.210. Serum 03-03-2 = 4.1 1.3-3.2 complet globuli 017 gm/dL ed n 00:47 measure ment (mass/v olume) Serum = 105 74-106 complet or 017 mg/dL ed plasma 00:47 glucose measure ment (mas Serum = 4.7 3.5-5.1 complet potassi 017 mmoL/L ed um 00:47 measure ment Serum = 132 136-145 complet sodium 017 mmoL/L ed measure 00:47 ment Serum = 36 15-37 complet or 017 U/L ed plasma 00:47 asparta te aminotr ansfera ALT = 83 12-78 complet (SGPT) 017 U/L ed ser/yuli 00:47 s Protein = 6.9 6.4-8.2 complet total 017 gm/dL ed ser/yuli 00:47 s Comprehensive metabolic panel (02-25-2017 15:06) Serum = 0.9 1.1-1.8 complet or 017 [...] urea nitroge n measure men Serum = 8.7 8.5-10. complet or 017 mg/dL 1 ed plasma 15:06 calcium measure ment (mas Serum = 100 98-107 complet or 017 mmoL/L ed plasma 15:06 chlorid e measure ment (mo Carbon 11-13-2 = 22 21.0-32 complet dioxide 017 mmoL/L .0 ed 15:06 measure ment Serum = 1.4 0.55-1. complet or 017 mg/dL 02 ed plasma 15:06 creatin ine measure ment ( Estimat = 38 59- complet ed 017 ML/MIN ed glomeru 15:06 lar filtrat ion rate (GF Comment: REFERENCE RANGE: >60 ML/MIN/1.73 SQUARE METERS Comment: If this patient is -Iranian, then multiply the Comment: result by 1.210. Serum = 3.2 1.3-3.2 complet globuli 017 gm/dL [...] plasma thyroid stimulating horm (02-25-2017 15:06) Serum 2 = 2.45 0.358-3 complet or 017 uIU/ml .740 ed plasma 15:06 thyroid stimula ting horm Salicylate ser/plas (02-17-2017 04:00) Salicyl = 2.8 [...] creatin 04:00 ine renal clearan ce Serum = 1.5 0.55-1. complet or 017 mg/dL 02 ed plasma 04:00 creatin ine measure ment ( Carbon = 24 21.0-32 complet dioxide 017 mmoL/L .0 ed 04:00 measure ment Serum = 98 98-107 complet or 017 mmoL/L ed plasma 04:00 chlorid e measure ment (mo Serum = [...] 04:00 s Serum or plasma ethanol measurement ([facility] (02-17-2017 04:00) Serum -05-2 = 0 0-99 complet or 017 mg/dL ed plasma 04:00 ethanol measure ment ([facility] Acetaminophen level (mass/volume) (02-17-2017 04:00) Acetami 05-2 = 0 10-30 complet nophen 017 ug/mL [...] blood 04:00 platele t mean volume emmy Otero % = 8.0 % 1.7-9.3 complet 017 [...] um 017 mg/dL ed SerPl-m 02:07 Cnc Lactate [...] Mycobacterium XXX Ql Cult (02-05-2017 13:51) Bacteri [id number] complet a XXX 017 00 not ed [...] EXAM TUAN Prep XXX (02-05-2017 13:51) TUAN [id number] complet 017 03 ed 13:51 sample: fungus not isolate d (findin g) SCT NOFEO NO FUNGAL ELEMENT S OBSERVE D L HSV1+2 DNA XXX Ql PCR (02-05-2017 13:51) HSV1+2 DUP complet DNA XXX 017 DUPLICA ed Ql PCR 13:51 TE ORDER,C REDITED L Resp virus 12 Pnl XXX PCR (02-05-2017 13:51) BAL PCR [id number] complet RESULT 017 09 ed 13:51 negativ e (qualif ier value) SCT NEGRP NEGATIV E for all analyte s L Acid fast Stn XXX Ql (02-05-2017 13:51) ACID [id number] complet FAST 017 8 not ed STAIN 13:51 seen (qualif ier value) SCT NOAFB NO AFB SEEN L Bacteria Bronch Aerobe Cult (02-05-2017 13:51) Bacteri [id number] complet a XXX 017 5 ed Anaerob 13:51 Sharmin e+Aerob e Cult albican s (organi sm) SCT CALB SHARMIN ALBICAN S L CC XXX LGRO complet VC-aCnc 017 LIGHT ed 13:51 GROWTH L SPECIME RCVD complet N 017 ORDER ed CONTAIN 13:51 PROCESS ER ED. L INFO: Fungus Tiss Cult (02-05-2017 13:51) Bacteri [id number] complet a XXX 017 5 ed Anaerob 13:51 Sharmin e+Aerob e Cult albican s (organi sm) SCT CALB SHARMIN ALBICAN S L SPECIME RCVD complet N 017 ORDER ed CONTAIN 13:51 PROCESS ER ED. L INFO: Lactate Bld-sCnc (02-05-2017 02:08) Lactate 1.2 complet [...] Anaerob 13:41 ACCESSI e+Aerob ON e Cult [id number] FOR RESULTS T4 Free SerPl-mCnc (02-04-2017 09:39) T4 Free 1.2 0.8-1.7 complet 017 ng/dL ed SerPl-m 09:39 Cnc NT-proBNP SerPl-mCnc (02-04-2017 09:39) NT-proB [id number] 0-899 complet [facility] 017 pg/mL ed SerPl-m 09:39 Cnc TSH SerPl DL<=0.005 mIU/L-aCnc (02-04-2017 09:39) TSH 1.58 0.4-4.2 complet SerPl 017 uIU/mL ed DL<=0.0 09:39 05 mIU/L-a Cnc Resp virus 12 Pnl XXX PCR (02-04-2017 09:39) COMP [id number] complet RESP 017 09 ed PCR 09:39 negativ PANEL e RESULT: (qualif ier value) SCT NEGRP NEGATIV E for all analyte s L S pneum Ag Ur Ql (02-04-2017 09:39) STREP [id number] complet PNEUMO 017 09 ed AG 09:39 negativ RESULT e (qualif ier value) SCT NEGU NEGATIV E for Strepto coccus pneumon iae antigen . L STREP (NOTE) complet PNEUMO 017 ed AG 09:39 RESULT STREP 10-23-2 REFEREN complet PNEUMO 017 CE ed AG 09:39 VALUE: RESULT NEGATIV E FOR STREPTO COCCUS PNEUMON IAE ANTIGEN . Legionella Ag Ur Ql (02-04-2017 09:39) RESULT [id number] complet LEGIONE 017 09 ed LLA 09:39 negativ ANTIGEN e (qualif ier value) SCT PNLEG NEGATIV E for Legione lla pneumop josé luis serogro up 1 antigen . L Bacteria XXX Anaerobe+Aerobe Cult (02-04-2017 09:39) Bacteri [id number] complet a XXX 017 06 No ed Anaerob 09:39 growth e+Aerob (qualif e Cult ier value) SCT NGB6 NO GROWTH DAY 5. L SPECIME [id number] complet N 017 03 ed CONTAIN 09:39 blood ER volume INFO: estimat ion (proced ure) SCT BVA BLOOD CULTURE VOLUME ACCEPTA BLE L SPECIME FANB complet N 017 AEROBIC ed CONTAIN 09:39 FAN ER AND INFO: ANAEROB IC BLOOD CULTURE BOTTLES L Bacteria Bro [place] Aerobe Cult (02-04-2017 09:30) SPECIME RCVD complet N 017 ORDER ed CONTAIN 09:30 PROCESS ER ED. L INFO: Bacteri [id number] complet a XXX 5 ed Anaerob 09:30 Sharmin e+Aerob e Cult albican s (organi sm) SCT CALB SHARMIN ALBICAN S L Bacteria XXX Anaerobe+Aerobe Cult (02-04-2017 07:17) Bacteri [id number] complet a XXX 017 06 No ed Anaerob 07:17 growth e+Aerob (qualif e Cult ier value) SCT NGB6 NO GROWTH DAY 5. L SPECIME [id number] complet N 017 03 ed CONTAIN 07:17 blood ER volume INFO: estimat ion (proced ure) SCT BVA BLOOD CULTURE VOLUME ACCEPTA BLE L SPECIME FANB complet N 017 AEROBIC ed CONTAIN 07:17 FAN ER AND INFO: ANAEROB IC BLOOD CULTURE BOTTLES L Phosphate SerPl-mCnc (02-04-2017 07:01) Phospha 5.8 [...] 06:42 c MDRO Wnd (02-04-2017 06:36) Bacteri [id number] complet a XXX 017 01 ed Anaerob 06:36 Methici e+Aerob llin e Cult resista nt Staphyl ococcus aureus (organi sm) SCT MRSA1 (MRSA) L Bacteri [id number] complet a XXX 017 ed Anaerob 06:36 Staphyl e+Aerob ococcus e Cult aureus (organi sm) SCT SAUR STAPHYL OCOCCUS AUREUS L Bacteri [id number] complet a XXX 017 2 ed Anaerob [...] ed oxygen 05:10 saturat ion calcula PRESSUR 10-23-2 10 complet E 017 ed SUPPORT 05:10 [...] DR GAMINO 02/04/179 Quang Holly Arteria = 54.4 35.0-45 complet [...] ed 00:57 Cardiac enzymes (02-03-2017 23:05) Serum 10-22-2 = 0.10 0.00-0. complet or 017 ng/mL [...] 23:04 partial pressur e of carbo Arteria 10-22-2 = 100 complet l blood 017 ed [...] 017 CLOUDY ed nce 22:25 L determi [facility] Comprehensive metabolic panel (02-03-2017 20:50) Protein = [...] SQUARE METERS Comment: If this patient is -Iranian, then multiply the Comment: result by 1.210. [...] 20:50 chlorid e measure ment (mo Serum 2 = 9.7 8.5-10. complet or 017 mg/dL 1 ed plasma 20:50 calcium measure ment (mas Serum = 27 7-18 complet or 017 mg/dL ed plasma 20:50 urea nitroge n measure men Serum 2 = 0.7 0.2-1.0 complet or 017 mg/dL [...] mass ra Cardiac enzymes (02-03-2017 20:50) Serum 2 = 0.12 0.00-0. complet or 017 ng/mL [...] RESULTS CALLED TO Tacho SOMMERS RN 02/03/17 7718 AimeeTi Whole blood INR measurement (02-03-2017 20:50) Comment: [...] blood 20:50 platele t mean volume emmy Otero % = 5.6 % 1.7-9.3 complet 017 [...] cytes 20:50 automat ed count (numb Automat 2 = 0.7 % 0.1-12. complet ed 017 0 ed blood 20:50 eosinop hils/10 0 leukocy t Automat 2 = 0.1 0.0-0.4 complet ed 017 K/mm3 ed blood 20:50 eosinop hil count Baso % = 0.7 % 0.1-2.0 complet 017 ed 20:50 Automat 02-03-2 = 0.1 0-0.2 complet ed 017 K/MM3 ed blood 20:50 basophi l count (count/ vo Glucose capillary blood glucometer (02-03-2017 20:44) Glucose 02-03-2 = 124 70-110 complet 017 mg/dl ed capilla 20:[address] Glucose capillary blood glucometer (02-01-2017 06:29) Glucose 02-01-2 = 126 70-110 complet 017 mg/dl ed capilla 06:[address] Glucose capillary blood glucometer (01-31-2017 20:33) Glucose 01-31-2 = 109 70-110 complet 017 mg/dl ed capilla 20:[address] Glucose capillary blood glucometer (01-31-2017 16:48) Glucose 01-31-2 = 117 70-110 complet 017 mg/dl ed [...] mmoL/L ed um 07:00 measure ment Serum 2 = 112 74-106 complet or 017 mg/dL ed plasma 07:00 glucose measure ment (mas Serum = 3.4 1.3-3.2 complet globuli 017 gm/dL ed n 07:00 measure ment (mass/v olume) Estimat 2 = 63 59- complet ed 017 ML/MIN ed glomeru 07:00 lar filtrat ion rate (GF Comment: REFERENCE RANGE: >60 ML/MIN/1.73 SQUARE METERS Comment: If this patient is -Iranian, then multiply the Comment: result by 1.210. [...] CBC w auto diff (01-31-2017 07:00) Automat 01-31-2 = 0.1 0-0.2 complet ed 017 K/MM3 [...] blood 07:00 platele t mean volume emmy Otero % = 7.6 % 1.7-9.3 complet 017 [...] % .0 ed percent 07:00 age Blood 10-19-2 = 6.8 1.8-7.8 complet granulo 017 K/mm3 ed cytes 07:00 automat ed count (numb Automat = 2.8 % 0.1-12. complet ed 017 0 ed blood 07:00 eosinop hils/10 0 leukocy t Automat 2 = 0.3 0.0-0.4 complet ed 017 K/mm3 [...] TO [facility] FOR ID ON 7. Urine [id number] complet culture 017 5 Yeast ed 04:05 SCT Y YEAST L Bacteria identified in Urine by Culture (01-30-2017 04:05) Bacteri YEAST complet a 017 ISOLATE ed identif 04:05 D. SENT ied in TO Urine [facility] by FOR ID Culture ON 7. Bacteri 01-30- Yeast complet a 017 ed identif 04:05 ied in Urine by Culture Glucose capillary blood glucometer (01-29-2017 20:36) Glucose = 104 70-110 complet 017 mg/dl ed capilla 20:[address] Glucose capillary blood glucometer (01-29-2017 17:11) Glucose 01-29- = 106 70-110 complet 017 mg/dl ed capilla 17:[address] Glucose capillary blood glucometer (01-29-2017 11:57) Glucose = 107 70-110 complet 017 mg/dl [...] % 10-50 complet 017 ed 09:20 Hypochr 01-29- 2+ 2+ L complet omatic 017 ed [...] blood 09:20 platele t mean volume emmy Otero % 10-17-2 = 4.6 % 1.7-9.3 complet 017 ed [...] SQUARE METERS Comment: If this patient is -Iranian, then multiply the Comment: result by 1.210. [...] Glucose capillary blood glucometer (01-28-2017 16:57) Glucose 2 = 98 70-110 complet 017 mg/dl ed capilla 16:[address] Glucose capillary blood glucometer (01-28-2017 11:30) Glucose 2 = 110 70-110 complet 017 mg/dl ed [...] auto diff (01-28-2017 06:17) Comment: COMMENTS TO MEDICAL RECEPTION SPECIALIST: 0600 Baso % = 0.1 % [...] blood 06:17 platele t mean volume emmy Otero % = 4.9 % 1.7-9.3 complet 017 [...] metabolic panel (01-28-2017 06:17) Comment: COMMENTS TO MEDICAL RECEPTION SPECIALIST: 0600 Protein = 7.4 6.4-8.2 complet total 017 gm/dL ed ser/yuli 06:17 s ALT = 21 12-78 complet (SGPT) 017 U/L ed ser/yuli 06:17 s Serum = 18 15-37 complet or 017 U/L ed plasma 06:17 asparta te aminotr ansfera Serum 10-16-2 = 134 136-145 complet sodium 017 mmoL/L [...] SQUARE METERS Comment: If this patient is -Iranian, then multiply the Comment: result by 1.210. [...] Glucose capillary blood glucometer (01-28-2017 03:39) Glucose 1016-2 = 116 70-110 complet 017 mg/dl ed capilla 03:[address] Glucose capillary blood glucometer (01-27-2017 20:32) Glucose 10--2 = 123 70-110 complet 017 mg/dl ed capilla 20:[address] Glucose capillary blood glucometer (01-27-2017 16:51) Glucose 10-15-2 = 136 70-110 complet 017 mg/dl ed capilla 16:[address] Glucose capillary blood glucometer (01-27-2017 11:42) Glucose 10-15-2 = 120 70-110 complet 017 mg/dl ed capilla 11:[address] Glucose capillary blood glucometer (01-27-2017 06:38) Glucose 10--2 = 127 70-110 complet 017 mg/dl ed [...] SQUARE METERS Comment: If this patient is -Iranian, then multiply the Comment: result by 1.210. Estimat 2 = 64 50-200 complet ion of 017 ML/MIN ed creatin 05:35 ine renal clearan ce Serum 2 = 1.4 0.55-1. complet or 017 mg/dL 02 ed plasma 05:35 creatin ine measure ment ( Carbon = 34 21.0-32 complet dioxide 017 mmoL/L .0 ed 05:35 measure ment Serum 2 = 99 98-107 complet or 017 mmoL/L ed plasma 05:35 chlorid e measure ment (mo Serum 2 = 8.5 8.5-10. complet or 017 mg/dL [...] blood 05:35 platele t mean volume emmy Otero % = 5.6 % 1.7-9.3 complet 017 [...] SQUARE METERS Comment: If this patient is -Iranian, then multiply the Comment: result by 1.210. [...] Bld-mCn 013 mg/dL ed c 21:05 Creat 09-07-2 1.2 0.6-1.0 complet SerPl-m 013 mg/dL ed Cnc 21:05 ESTIMAT 83 50-200 complet ED 013 ML/MIN ed CREATIN 21:05 JAMEEL CLEARBERNABE CE GFR 46 59- complet (ESTIMA 013 [...] K/MM3 8 ed Auto 21:05 RBC # 12-20-2 4.43 4.2-5.4 complet Bld 013 M/mm3 ed [...] 013 K/mm3 ed Ql 21:05 Manual MEAN 09-07-2 8.1 fl 7.4-10. complet PLATELE 013 4 [...] ACID 013 mg/dL ed 11:30 Glucose [facility]comtr[facility] (08-19-2012 11:55) Glucose 166 70-110 complet BldC 013 mg/dl ed Glucomt 11:55 [facility] Glucose [facility]comtr[facility] (08-19-2012 06:34) Glucose 103 70-110 complet BldC 013 mg/dl ed Glucomt 06:34 [facility] COMPREHENSIVE METABOLIC PANEL (08-19-2012 06:05) Glucose 96 74-106 complet 013 mg/dL ed d-mCn 06:05 c BUN 26 7-18 complet Bld-mCn [...] K/MM3 8 ed Auto 06:05 RBC # 07-2 3.85 4.2-5.4 complet Bld 013 M/mm3 ed [...] % 10-50.0 complet 013 ed 06:05 Monocyt 08-19- 5.5 % 1.7-9.3 complet es Fr 013 ed Bld 06:05 Auto Eosinop 08-19-2 5.2 % 0.1-12. complet hil Fr 013 0 ed Bld 06:05 Auto Basophi 08-19-2 0.3 % 0.1-2.0 complet ls Fr 013 ed Bld 06:05 Auto Granulo 07-2 3.0 1.8-7.8 complet cytes # 013 K/mm3 ed Bld 06:05 Auto Lymphoc 07-2 2.4 0.7-4.5 complet ytes Fr 013 K/mm3 ed Bld 06:05 Auto Monocyt 07-2 0.3 0.1-1.0 complet es # 013 K/mm3 ed Bld 06:05 Auto Eosinop 05-07-2 0.3 0.0-0.4 complet hil # 013 K/mm3 ed Bld 06:05 Auto Basophi 05-07-2 0.0 0-0.2 complet ls # 013 K/MM3 ed Bld 06:05 Auto Glucose BldC Glucomtr-nc (08-18-2012 20:33) Glucose 05-06-2 150 70-110 complet BldC 013 mg/dl ed Glucomt 20:33 r-mCnc Glucose BldC Glucomtr-nc (08-18-2012 17:05) Glucose -06-2 162 70-110 complet BldC 013 mg/dl ed Glucomt 17:05 r-mCnc Glucose BldC Glucomtr-nc (08-18-2012 11:49) Glucose -06-2 130 70-110 complet BldC 013 mg/dl ed [...] complet WBC 013 wbc/hpf ed 11:38 URINE 08-18-2 OCC 0-5 complet SQUAMOU 013 #/hpf ed S CELLS 11:38 Glucose dC Glucomtr-[facility] (08-18-2012 06:37) Glucose 08-18-2 108 70-110 complet BldC 013 mg/dl ed Glucomt 06:37 r-[facility] Glucose [facility] Glucom-[facility] (08-17-2012 21:07) Glucose 08-17-2 176 70-110 complet BldC 013 mg/dl ed Glucomt 21:07 r-[facility] COMPREHENSIVE METABOLIC PANEL (08-17-2012 12:45) Glucose 08-17-2 164 74-106 complet 013 mg/dL ed Bld-mCn 12:45 c BUN 08-17-2 31 7-18 complet Bld-mCn 013 mg/dL ed c 12:45 Creat 08-17-2 1.2 0.6-1.0 complet SerPl-m 013 mg/dL ed Cnc 12:45 ESTIMAT 08-17-2 83 50-200 complet ED 013 ML/MIN ed CREATIN 12:45 INE CLEARAN CE GFR 08-17-2 46 59- complet (ESTIMA 013 ML/MIN ed JULIANNE) 12:45 Sodium 05-2 138 136-145 complet SerPl-s 013 mmoL/L ed [...] mg/dl ed Glucomt 06:56 r-mCnc Glucose BldC Glucomtr-mCnc (05-31-2012 20:27) Glucose 161 70-110 complet BldC 013 mg/dl ed Glucomt 20:27 r-mCnc Glucose BldC Glucomtr-mCnc (05-31-2012 16:53) Glucose 115 [...] 1 ed SerPl-m 12:22 Cnc Glucose BldC Glucomtr-[facility] (05-31-2012 11:57) Glucose 175 70-110 complet BldC 013 mg/dl ed Glucomt 11:57 r-mCnc Glucose BldC Glucomtr-[facility] (05-31-2012 09:35) Glucose 105 70-110 complet BldC 013 mg/dl ed Glucomt 09:35 r-mCnc Glucose BldC Glucomtr-[facility] (05-31-2012 07:47) Glucose 170 70-110 complet BldC 013 mg/dl ed Glucomt 07:47 r-mCnc Glucose BldC Glucomtr-[facility] (05-31-2012 06:22) Glucose 89 70-110 complet BldC 013 mg/dl ed Glucomt 06:22 r-mCnc Glucose BldC Glucomtr-[facility] (05-30-2012 21:31) Glucose 163 70-110 complet BldC 013 mg/dl ed Glucomt 21:31 r-mCnc Glucose BldC Glucomtr-[facility] (05-30-2012 16:38) Glucose 150 70-110 complet BldC 013 mg/dl ed Glucomt 16:38 r-mCnc Glucose BldC Glucomtr-[facility] (05-30-2012 11:35) Glucose 104 70-110 complet BldC 013 mg/dl ed Glucomt 11:35 r-mCnc Glucose BldC Glucomtr-[facility] (05-30-2012 06:33) Glucose 109 70-110 complet BldC 013 mg/dl ed Glucomt 06:33 r-[facility] BASIC METABOLIC PANEL (05-30-2012 06:32) Glucose 05-30- 105 74-106 complet 013 mg/dL ed Bld-mCn 06:32 c BUN 05-30- 35 7-18 complet Bld-mCn 013 mg/dL ed c 06:32 Creat 05-30-2 1.3 0.6-1.0 complet SerPl-m 013 mg/dL ed Cnc 06:32 ESTIMAT --2 81 50-200 complet ED 013 ML/MIN ed [...] K/MM3 8 ed Auto 06:32 RBC # 05-30-2 4.04 4.2-5.4 complet Bld 013 M/mm3 ed Auto 06:32 Hgb 05-30-2 10.7 12.2-16 complet Bld-mCn 013 g/dL .2 ed c 06:32 Hct Fr 05-30- 33.9 % 37.0-47 complet Bld 013 .0 ed 06:32 MCV RBC 05-30- 83.9 fl 82.2-97 complet 013 .8 ed 06:32 MCH RBC 05-30- 26.4 pg 27-31.2 complet Qn 013 ed Auto 06:32 MEAN 02-15-2 31.5 31.8-35 complet CORPUSC 013 g/dl .4 ed ULAR 06:32 HGB CONC RDW RBC 02-15-2 15.7 % 11.5-17 complet Auto 013 .5 [...] K/MM3 ed Bld 06:32 Auto Glucose BldC Glucomtr-[facility] (05-29-2012 21:06) Glucose 05-29- 148 70-110 complet BldC 013 mg/dl ed Glucomt 21:06 r-nc Glucose BldC Glucomtr-[facility] (05-29-2012 16:53) Glucose 05-29- 110 70-110 complet BldC 013 mg/dl ed Glucomt 16:53 r-nc Glucose BldC Glucomtr-[facility] (05-29-2012 11:57) Glucose 177 70-110 complet BldC 013 mg/dl ed Glucomt 11:57 r-[facility] Glucose BldC Glucomtr-[facility] (05-29-2012 09:46) Glucose 139 70-110 complet BldC 013 mg/dl ed Glucomt 09:46 r-[facility] Glucose BldC Glucomtr-[facility] (05-29-2012 06:13) Glucose 115 70-110 complet BldC 013 mg/dl ed Glucomt 06:13 r-[facility] THYROID STIM HORMONE (05-29-2012 00:01) THYROID 3.96 [...] SerPl-m 013 gm/dL ed Cnc 23:50 Albumin 02-13-2 2.7 3.4-5.0 complet 013 gm/dL ed SerPl-m 23:50 Cnc Globuli 05-28-2 4.1 1.3-3.2 complet n 013 gm/dL ed Ser-mCn 23:50 c Albumin 05-28-2 0.7 UNK 1.1-1.8 complet /Glob 013 ed [...] complet Auto 013 .5 ed 23:50 Platele 05-28- 380 142-424 complet t Bld 013 K/mm3 ed Ql 23:50 Manual MEAN 02-13-2 7.6 fl 7.4-10. complet PLATELE 013 4 ed T 23:50 VOLUME Granulo 02-13-2 79.2 % 37.0-80 complet cytes 013 .0 [...] 013 K/mm3 ed Bld 23:50 Auto Monocyt -13-2 0.4 0.1-1.0 complet es # 013 K/mm3 ed Bld 23:50 Auto Eosinop -13-2 0.2 0.0-0.4 complet hil # 013 K/mm3 ed Bld 23:50 Auto Basophi -13-2 0.0 0-0.2 complet ls # 013 K/MM3 ed Bld 23:50 Auto Procedures Procedure DOS Code Location Performer Comment CLOSURE 86.59 [facility] [place] [facility] OUS NEC Encounters Encounter Start End Date Code Location Performer Type Date Emergency VALERY Shaikh MD (ER) 3 20:50 3 21:50 [facility] Emergency VALERY Flowers MD (ER) 3 11:31 3 12:38 [facility] Emergency VALERY Shaikh MD (ER) 3 19:20 3 20:31 [facility] Inpatient OPAL Blanca ([place]) 3 12:50 3 14:20 [facility] Inpatient IMP Pipo Breaux MD (IN) 3 23:10 3 10:45 [facility]
--- OUTSIDE RECORDS SUMMARY | 2017-03-09 06:19 | External Medical Summary Rpt | CCD ---
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 Name Role Phone Leanne Shaikh MD, Unavailable Unavailable Leanne Blanca MD, Unavailable Unavailable Eduin Blanca MD Purpose Continuity of Care Document - 05-28-2012 through 2016 Problems Code Diagnosis DOS Provider Status 162.9 276.8 Hypokalemia [facility] 416.9 Cor [place] [facility] [id number] Gast[facility] 585.9 [id number] Pulmonary [place] [facility] [id number] Chronic [facility] E66.9 OBESITY, UNSPECIFIED E86.0 DEHYDRATION F41.9 [...] 1 Ac TA ti BL ve ET ID 00 02 2 No OM 64 -1 [...] 0M ti G ve Ta bl et ID 00 02 3 No OT 00 -1 [...] 017 K/mm3 ed monocyt 00:47 e count [place] % = 8.1 % 1.7-9.3 complet 017 [...] SQUARE METERS Comment: If this patient is -[place], then multiply the Comment: result by 1.210. [...] SQUARE METERS Comment: If this patient is -[place], then multiply the Comment: result by 1.210. [...] 04:00 s Serum or plasma ethanol measurement ([facility] (02-17-2017 04:00) Serum -05-2 = 0 0-99 complet or 017 mg/dL ed plasma 04:00 ethanol measure ment ([facility] Acetaminophen level (mass/volume) (02-17-2017 04:00) Acetami 05-2 [...] blood 04:00 platele t mean volume emmy [place] % = 8.0 % 1.7-9.3 complet 017 [...] Mycobacterium XXX Ql Cult (02-05-2017 13:51) Bacteri [id number] complet a XXX 017 00 not ed [...] EXAM TUAN Prep XXX (02-05-2017 13:51) TUAN [id number] complet 017 03 ed 13:51 sample: fungus not isolate d (findin g) SCT NOFEO NO FUNGAL ELEMENT S OBSERVE D L HSV1+2 DNA XXX Ql PCR (02-05-2017 13:51) HSV1+2 DUP complet DNA XXX 017 DUPLICA ed Ql PCR 13:51 TE ORDER,C REDITED L Resp virus 12 Pnl XXX PCR (02-05-2017 13:51) BAL PCR [id number] complet RESULT 017 09 ed 13:51 negativ e (qualif ier value) SCT NEGRP NEGATIV E for all analyte s L Acid fast Stn XXX Ql (02-05-2017 13:51) ACID [id number] complet FAST 017 8 not ed STAIN 13:51 seen (qualif ier value) SCT NOAFB NO AFB SEEN L Bacteria Bronch Aerobe Cult (02-05-2017 13:51) Bacteri [id number] complet a XXX 017 5 ed Anaerob 13:51 Sharmin e+Aerob e Cult albican s (organi sm) SCT CALB SHARMIN ALBICAN S L CC XXX LGRO complet VC-aCnc 017 LIGHT ed 13:51 GROWTH L SPECIME RCVD complet N 017 ORDER ed CONTAIN 13:51 PROCESS ER ED. L INFO: Fungus Tiss Cult (02-05-2017 13:51) Bacteri [id number] complet a XXX 017 5 ed Anaerob [...] Anaerob 13:41 ACCESSI e+Aerob ON e Cult [id number] FOR RESULTS T4 Free SerPl-mCnc (02-04-2017 09:39) T4 Free 1.2 0.8-1.7 complet 017 ng/dL ed SerPl-m 09:39 Cnc NT-proBNP SerPl-mCnc (02-04-2017 09:39) NT-proB [id number] 0-899 complet MATCH UP PERSON 017 pg/mL ed SerPl-m 09:39 Cnc TSH SerPl DL<=0.005 mIU/L-aCnc (02-04-2017 09:39) TSH 1.58 0.4-4.2 complet SerPl 017 uIU/mL ed DL<=0.0 09:39 05 mIU/L-a Cnc Resp virus 12 Pnl XXX PCR (02-04-2017 09:39) COMP [id number] complet RESP 017 09 ed PCR 09:39 negativ PANEL e RESULT: (qualif ier value) SCT NEGRP NEGATIV E for all analyte s L S pneum Ag Ur Ql (02-04-2017 09:39) STREP [id number] complet PNEUMO 017 09 ed AG 09:39 negativ RESULT e (qualif ier value) SCT NEGU NEGATIV E for Strepto coccus pneumon iae antigen . L STREP (NOTE) complet PNEUMO 017 ed AG 09:39 RESULT STREP 10-23-2 REFEREN complet PNEUMO 017 CE ed AG 09:39 VALUE: RESULT NEGATIV E FOR STREPTO COCCUS PNEUMON IAE ANTIGEN . Legionella Ag Ur Ql (02-04-2017 09:39) RESULT [id number] complet LEGIONE 017 09 ed LLA 09:39 negativ ANTIGEN e (qualif ier value) SCT PNLEG NEGATIV E for Legione lla pneumop josé luis serogro up 1 antigen . L Bacteria XXX Anaerobe+Aerobe Cult (02-04-2017 09:39) Bacteri [id number] complet a XXX 017 06 No ed Anaerob 09:39 growth e+Aerob (qualif e Cult ier value) SCT NGB6 NO GROWTH DAY 5. L SPECIME [id number] complet N 017 03 ed CONTAIN 09:39 blood ER volume INFO: estimat ion (proced ure) SCT BVA BLOOD CULTURE VOLUME ACCEPTA BLE L SPECIME FANB complet N 017 AEROBIC ed CONTAIN 09:39 FAN ER AND INFO: ANAEROB IC BLOOD CULTURE BOTTLES L Bacteria Bro [place] Aerobe Cult (02-04-2017 09:30) SPECIME RCVD complet N 017 ORDER ed CONTAIN 09:30 PROCESS ER ED. L INFO: Bacteri [id number] complet a XXX 5 ed Anaerob 09:30 Sharmin e+Aerob e Cult albican s (organi sm) SCT CALB SHARMIN ALBICAN S L Bacteria XXX Anaerobe+Aerobe Cult (02-04-2017 07:17) Bacteri [id number] complet a XXX 017 06 No ed Anaerob 07:17 growth e+Aerob (qualif e Cult ier value) SCT NGB6 NO GROWTH DAY 5. L SPECIME [id number] complet N 017 03 ed CONTAIN 07:17 [...] 06:42 c MDRO Wnd (02-04-2017 06:36) Bacteri [id number] complet a XXX 017 01 ed Anaerob 06:36 Methici e+Aerob llin e Cult resista nt Staphyl ococcus aureus (organi sm) SCT MRSA1 (MRSA) L Bacteri [id number] complet a XXX 017 ed Anaerob 06:36 Staphyl e+Aerob ococcus e Cult aureus (organi sm) SCT SAUR STAPHYL OCOCCUS AUREUS L Bacteri [id number] complet a XXX 017 2 ed Anaerob [...] CLOUDY ed nce 22:25 L determi [facility] Comprehensive metabolic panel (02-03-2017 20:50) Protein [...] SQUARE METERS Comment: If this patient is -[place], then multiply the Comment: result by 1.210. [...] RESULTS CALLED TO Tacho SOMMERS RN 02/03/17 1197 AimeeTi Whole blood INR measurement (02-03-2017 20:50) [...] blood 20:50 platele t mean volume emmy [place] % = 5.6 % 1.7-9.3 complet 017 [...] 6.2 6.4-8.2 complet total 017 gm/dL ed ser/yuil 07:00 s ALT = 70 12-78 complet [...] SQUARE METERS Comment: If this patient is -[place], then multiply the Comment: result by 1.210. [...] blood 07:00 platele t mean volume emmy [place] % = 7.6 % 1.7-9.3 complet 017 [...] TO [facility] FOR ID ON 7. Urine [id number] complet culture 017 5 Yeast ed 04:05 [...] ed blood 09:20 smear examina tion by enly LYMPH 8 % 10-50 complet 017 ed [...] blood 09:20 platele t mean volume emmy [place] % 10-17-2 = 4.6 % 1.7-9.3 complet [...] SQUARE METERS Comment: If this patient is -[place], then multiply the Comment: result by 1.210. [...] auto diff (01-28-2017 06:17) Comment: COMMENTS TO [employer]AT[employer] MECHANIC: 0600 Baso % = 0.1 % 0.1-2.0 [...] blood 06:17 platele t mean volume emmy [place] % = 4.9 % 1.7-9.3 complet 017 [...] metabolic panel (01-28-2017 06:17) Comment: COMMENTS TO [employer]AT[employer] MECHANIC: 0600 Protein = 7.4 6.4-8.2 complet total [...] SQUARE METERS Comment: If this patient is -[place], then multiply the Comment: result by 1.210. [...] SQUARE METERS Comment: If this patient is -[place], then multiply the Comment: result by 1.210. [...] blood 05:35 platele t mean volume emmy [place] % = 5.6 % 1.7-9.3 complet 017 [...] SQUARE METERS Comment: If this patient is -[place], then multiply the Comment: result by 1.210. [...] complet ACID 013 mg/dL ed 11:30 Glucose [facility] (08-19-2012 11:55) Glucose 166 70-110 complet BldC 013 mg/dl ed Glucomt 11:55 [facility] Glucose [facility] (08-19-2012 06:34) Glucose 103 70-110 complet BldC 013 mg/dl ed Glucomt 06:34 [facility] COMPREHENSIVE METABOLIC PANEL (08-19-2012 06:05) Glucose [...] #/hpf ed S CELLS 11:38 Glucose dC [facility] (08-18-2012 06:37) Glucose 08-18-2 108 70-110 complet BldC 013 mg/dl ed Glucomt 06:37 r-[facility] Glucose [facility]com[facility] (08-17-2012 21:07) Glucose 08-17-2 176 70-110 complet BldC 013 mg/dl ed Glucomt 21:07 r-[facility] COMPREHENSIVE METABOLIC PANEL (08-17-2012 12:45) Glucose 08-17-2 [...] 1 ed SerPl-m 12:22 Cnc Glucose BldC [facility] (05-31-2012 11:57) Glucose 175 70-110 complet BldC 013 mg/dl ed Glucomt 11:57 r-mCnc Glucose BldC [facility] (05-31-2012 09:35) Glucose 105 70-110 complet BldC 013 mg/dl ed Glucomt 09:35 r-mCnc Glucose BldC [facility] (05-31-2012 07:47) Glucose 170 70-110 complet BldC 013 mg/dl ed Glucomt 07:47 r-mCnc Glucose BldC [facility] (05-31-2012 06:22) Glucose 89 70-110 complet BldC 013 mg/dl ed Glucomt 06:22 r-mCnc Glucose BldC [facility] (05-30-2012 21:31) Glucose 163 70-110 complet BldC 013 mg/dl ed Glucomt 21:31 r-mCnc Glucose BldC [facility] (05-30-2012 16:38) Glucose 150 70-110 complet BldC 013 mg/dl ed Glucomt 16:38 r-mCnc Glucose BldC [facility] (05-30-2012 11:35) Glucose 104 70-110 complet BldC 013 mg/dl ed Glucomt 11:35 r-mCnc Glucose BldC [facility] (05-30-2012 06:33) Glucose 109 70-110 complet BldC 013 mg/dl ed Glucomt 06:33 r-[facility] BASIC METABOLIC PANEL (05-30-2012 06:32) Glucose 05-30- [...] K/MM3 ed Bld 06:32 Auto Glucose BldC [facility] (05-29-2012 21:06) Glucose 05-29- 148 70-110 complet BldC 013 mg/dl ed Glucomt 21:06 r-nc Glucose BldC [facility] (05-29-2012 16:53) Glucose 05-29- 110 70-110 complet BldC 013 mg/dl ed Glucomt 16:53 r-nc Glucose BldC [facility] (05-29-2012 11:57) Glucose 177 70-110 complet BldC 013 mg/dl ed Glucomt 11:57 r-[facility] Glucose BldC [facility] (05-29-2012 09:46) Glucose 139 70-110 complet BldC 013 mg/dl ed Glucomt 09:46 r-[facility] Glucose BldC [facility] (05-29-2012 06:13) Glucose 115 70-110 complet BldC 013 mg/dl ed Glucomt 06:13 r-[facility] THYROID STIM HORMONE (05-29-2012 00:01) THYROID 3.96 [...] DOS Code Location Performer Comment CLOSURE 86.59 [facility] NATACHA & Hwaa [employer] OUS NEC Encounters Encounter Start End Date Code Location Performer Type Date Emergency VALERY Shaikh MD (ER) 3 20:50 3 21:[address] [facility] Emergency VALERY Flowers MD (ER) 3 11:31 3 12:38 [facility] Emergency VALERY Shaikh MD (ER) 3 19:20 3 20:[address] [facility] Inpatient OPAL Blanca (IN) 3 12:50 3 14:20 [facility] Inpatient IMP Pipo Breaux MD (IN) 3 23:10 3 10:45 [facility]
--- OUTSIDE RECORDS SUMMARY | 2017-03-09 06:21 | External Medical Summary Rpt | CCD ---
Author Author , DWIGHT QUINTANILLA Address Unknown Phone [email or web address] Immunization Name Date Rout CVX Reac Dose [...]
--- OUTSIDE RECORDS SUMMARY | 2017-03-09 06:21 | External Medical Summary Rpt | CCD ---
Demographics Preferred Language Nepali Marital Status Unknown Scientology Affiliation Unknown Race Unknown Ethnic Group Unknown Author Author DWIGHT Address Unknown Phone [email or web address] Purpose Continuity of Care Document - through 2016
--- OUTSIDE RECORDS SUMMARY | 2017-03-09 06:21 | External Medical Summary Rpt | CCD ---
Author Author , DWIGHT QUINTANILLA Address Unknown Phone [email or web address] Immunization Name Date Rout CVX Reac Dose [...]
--- OUTSIDE RECORDS SUMMARY | 2017-03-09 06:21 | External Medical Summary Rpt | CCD ---
Demographics Preferred Language Danish Marital Status Unknown Taoism Affiliation Unknown Race Unknown Ethnic Group Unknown Author Author DWIGHT Address Unknown Phone [email or web address] Purpose Continuity of Care Document - through 2016
--- OUTSIDE RECORDS SUMMARY | 2017-03-09 06:24 | External Medical Summary Rpt ---
Author Author [facility] Sharma, ANKUSHMISTY [employer] Organization [employer] Address Unknown Phone Unavailable Results Glucose [Mass/volume] in Capillary blood by Glucometer Observa Value Referen Units Interpr Notes Date tion ce etation Range Glucose 70 - 110 mg/dl High No Mar 03 [Mass/vol informati 2016 ume] in on in 12:12 PM Capillary source blood by data Glucomete r Glucose [Mass/volume] in Capillary blood by Glucometer Observa Value Referen Units Interpr Notes Date tion ce etation Range Glucose 70 - 110 mg/dl High No Mar 03 [Mass/vol informati 2016 7:13 ume] in on in AM Capillary source blood by data Glucomete r Natriutietic peptide B [Mass/volume] in Serum or [...] gm/dL Low No Mar 03 [Mass/vol informati 2016 ume] [...] ML/MIN Normal No Mar 03 e renal informati 2017 clearance on in 12:47 AM source predicted data by Cockcroft -Gault formula Estimated 59- ML/MIN Low REFERENCE Mar 03 RANGE: 2017 glomerula >60 12:47 AM r ML/MIN/1. filtratio 73 SQUARE n rate METERSIf (GF this patient is -A merican, then multiply theresult by 1.210. Globulin 1.3 - 3.2 gm/dL High Mar 03 [Mass/vol informati 2016 ume] in on in 12:47 AM Serum source data Glucose 74 - 106 mg/dL Normal Mar 03 [Mass/vol informati 2016 ume] in on in 12:47 AM Serum or source Plasma data Potassium 3.5 - 5.1 mmoL/L Normal No Mar 032016 [Moles/vo on in 12:47 AM lume] in source Serum or data Plasma Sodium 136 - 145 mmoL/L Low Mar 03 [Moles/vo informati 2016 lume] in on in 12:47 AM Serum or source Plasma data Aspartate 15 - 37 U/L Normal Mar [id number] aminotran on in 12:47 AM sferase source [Enzymati data c activity/ volume] in Serum or Plasma Alanine 12 - 78 U/L High Mar 03 aminotran 2016 sferase on in 12:47 AM [Enzymati source c data activity/ volume] in Serum or Plasma Protein 6.4 - 8.2 gm/dL Normal Mar 03 [Mass/vol informati 2016 ume] in [...] Basophils 0 - 0.2 K/MM3 Normal No Mar 032016 [#/volume on in 12:47 AM ] in source Blood by data Automated count Basophils 0.1 - 2.0 % Normal No Mar 03 /100 2016 leukocyte on in 12:47 AM s in source Blood by data Automated count Eosinophi 0.0 - 0.4 K/mm3 Normal No Mar 03 ls 2016 [#/volume on in 12:47 AM ] in source Blood by data Automated count Eosinophi 0.1 - % Normal No Mar 03 ls/100 12.0 inform2016 leukocyte on in 12:47 AM s in source Blood by data Automated count Granulocy 1.8 - 7.8 K/mm3 Normal No Mar 03 lauryn inform2016 [#/volume on in 12:47 AM ] in source Blood by data Automated count Granulocy 37.0 - % Normal No Mar 03 lauryn/100 80.0 inform2016 leukocyte on in 12:47 AM s in [...] 9.3 % Normal No Mar 03 /100 inform2016 leukocyte on in 12:47 AM s in source Blood by data Automated count Platelet 7.4 - fl Low Mar 03 mean 10.4 2016 volume on in 12:47 AM [Entitic source volume] data in Blood by Automated count Platelets 142 - 424 K/mm3 No No Mar 03 informati informati 2016 [#/volume on in on in 12:47 AM ] in source source Blood data data Erythrocy 4.2 - 5.4 M/mm3 Normal No Mar 03 lauryn informati 2016 [#/volume on in 12:47 AM ] in source Amniotic data fluid Erythrocy 11.5 - % High No Mar 03 te 17.5 informati 2016 distribut on in 12:47 AM ion [...] Plasma Bilirubin 0.2 - 1.0 mg/dL Normal Feb 25 .total informati 2016 3:06 [Mass/vol [...] data Chloride 98 - 107 mmoL/L Normal Feb 25 [Moles/vo informati 2016 3:06 lume] [...] 59- ML/MIN Low REFERENCE Feb 25 RANGE: 2016 3:06 glomerula >60 PM r ML/MIN/1. filtratio [...] - 5.1 mmoL/L High No Feb 25 inform2016 3:06 [Moles/vo on in PM lume] in source Serum or data Plasma Sodium 136 - 145 mmoL/L Low No Feb 25 [Moles/vo informati 2016 3:06 lume] in on in PM Serum or source Plasma data Aspartate 15 - 37 U/L High No Feb 25 inform2016 3:06 aminotran on in PM sferase source [...] IS Plasma CONSIDERE D LEG[facility]IN [facility]IC[facility] [place] [employer] [place]. Comprehensive metabolic 2000 panel in Serum [...] 3.5 - 5.1 mmoL/L Normal No Feb 172016 4:00 [Moles/vo on in AM lume] in [...] mg/dL Normal No Feb 17 es 20.0 ati 2016 4:00 [Mass/vol on in AM ume] [...] treatment only. Phencycli <25 ng/mL No No Feb 17 dine informati informati 2016 4:00 [Mass/vol on in on in AM ume] in source source Unspecifi data data ed specimen 11-Hydr NEGATIV <50 ng/mL No No Feb 17 oxy E informa informa 2017 delta-9 tion in tion in 4:00 AM source source tetrahy data data drocann abinol [Presen ce] in Unspeci fied specime n Urinalysis dipstick W Reflex Microscopic panel in Urine Observa Value Referen Units Interpr Notes Date tion ce etation Range Appeara CLEAR CLEAR No No No Feb 17 nce of informa informa informa 2017 Urine tion in tion in tion in 4:00 AM source source source data data data Amorpho 2+ NONE No No No Feb 17 informa informa informa 2017 sedimen tion in tion in tion in 4:00 AM t source source source [Presen data data data ce] in Urine sedimen t by Light microsc opy Bacteri 1+ O No No POSSIBL Feb 17 a informa informa E 2017 [Presen tion in tion in CONTAMI 4:00 AM ce] in source source NATION Urine data data WITH sedimen FECES t by Light microsc opy Bilirub NEGATIV NEG No No No Feb 17 in E informa informa informa 2017 [Presen tion in tion in tion in 4:00 AM ce] in source source source Urine data data data by Test strip Erythro NEGATIV NEG No No No Feb 17 cytes E informa informa informa 2016 [Presen [...] No No Nov 5 nogen informa informa 2017 [Presen tion in tion in 4:00 AM ce] in source source Urine data data by Test strip Leukocy [3 O wbc/hpf No No Nov 5 lauryn wbc/hpf informa informa 2017 [#/volu ; 5 tion in tion in [...] - 0.2 K/MM3 Normal No Nov 5 inform2016 4:00 [#/volume on in AM ] in source Blood by data Automated count Basophils 0.1 - 2.0 % Normal No Nov 5 /100 informati 2017 4:00 leukocyte on in AM s in [...] count Hematocri 37.0 - % Low No Feb 5 t [Volume 47.0 informati 2016 4:00 [...] Erythrocy 82.2 - fl Low No Feb 5 te mean 97.8 informati 2016 4:00 corpuscul on in AM ar volume source [Entitic data volume] by Automated count Monocytes 0.1 - 1.0 K/mm3 High No Feb 5 inform2016 4:00 [#/volume on in AM ] in [...] Low No Oct 23 te 26.0 informati 2016 5:10 [Moles/vo on in AM lume] in source Arterial data blood Oxygen No No No No Oct 23 content informati informati informati informati 2017 5:10 in on in on in on in on in AM Arterial source source source source blood data data data data Carbon 35.0 - MMHG High No Oct 23 dioxide 45.0 informati 2016 5:10 [Partial on in AM pressure] source in data Arterial blood Phenytoin No No No No Oct 23 informati informati informati informati 2016 5:10 [Mass/vol on in on in on in on in AM ume] in source source source source Serum or data data data data Plasma pH of 7.35 - MMOL/L Low No Feb 04 Arterial 7.45 informati 2017 5:10 blood on in AM source data Oxygen 80 - 100 MMHG High No Feb 04 [Partial informati 2017 5:10 pressure] on in AM in source Arterial data blood PRESSUR 10 No No No No Feb 04 E informa informa informa informa 2017 SUPPORT [...] blood LTS CALLED TO: DR GAMINO 02/04/17 Quang Orozco pH of 7.35 - MMOL/L Low alert Feb 04 Arterial 7.45 2017 blood CRITICAL 12:57 AM RESULTS RESU LTS CALLED TO: DR GAMINO 02/04/17Quang Grier Oxygen 80 - 100 MMHG Low [...] Plasma Observa Value Referen Units Interpr Notes ti ce etation Range Lactate 0.4 - 2.0 [...] Low No Jan 22 excess in informati 2017 Arterial on in 11:04 PM blood source data Arteria Y No No No No Jan 22 l informa informa informa informa 2017 patency tion in tion in tion in tion in 11:04 Wrist source source source source PM artery data data data data --pre arteria l punctur e Bicarbona 22.0 - MMOL/L Low No Oct 22 te 26.0 informati 2017 [Moles/vo on in 11:04 PM lume] in source Arterial data blood Oxygen No No No No Oct 22 content informati informati informati informati 2017 in on in on in on in on in 11:04 PM Arterial source source source source blood data data data data Carbon 35.0 - MMHG Normal No Oct 22 dioxide 45.0 informati 2016 [Partial on in 11:04 PM pressure] source in data Arterial blood pH of 7.35 - MMOL/L Low No Oct 22 Arterial 7.45 informati 2017 blood on in 11:04 PM source data Oxygen 80 - 100 MMHG Low No Oct 22 [Partial informati 2017 pressure] on in 11:04 PM in source Arterial data blood Oxygen 90 - 100 % Normal No Oct 22 saturatio informati 2017 n.calcula on in 11:04 PM eber from source oxygen data partial pressure in Arterial blood SOURCE R/R No No No No Oct 22 informa informa informa informa 2017 tion in tion in tion in tion in 11:04 source source source source PM data data data data Carbon 23 - 27 MMOL/L Low No Jan 22 dioxide, informati 2017 total on in 11:04 PM [Moles/vo source lume] in data Arterial blood Natriutietic peptide B [Mass/volume] in Serum or Plasma Observa Value Referen Units Interpr Notes Date tion ce etation Range Natriutie 0 - 100 pg/mL High No Jan 22 tic informati 2017 8:50 peptide B on in PM source [Mass/vol data ume] in Serum or Plasma Cardiac enzymes Observa Value Referen Units Interpr Notes Date tion ce etation Range Creatine 0 - 4.0 U/L Normal No Jan 22 kinase.MB informati 2017 8:50 /Creatine on in PM source kinase.to data leatha [Ratio] in Serum or Plasma Creatine 0.0 - 3.6 ng/mL High No Oct 22 kinase.MB informati 2017 8:50 on in PM [Mass/vol source ume] in data Serum or Plasma Creatine 26 - 192 U/L High No Oct 22 kinase informati 2017 8:50 [Enzymati on in PM c source activity/ data volume] in Serum or Plasma Troponin 0.00 - ng/mL High 0.04 - Oct 22 I.cardiac 0.06 0.49 IS 2017 8:50 [...] High No Jan 22 e 1.02 informati 2017 8:50 [Mass/vol on in PM [...] - 5.1 mmoL/L Normal No Feb 03 inform2016 8:50 [Moles/vo on in PM lume] in [...] Interpr Notes Date ti ce etation Range IS PATIENT ON ANTICOAGULANTS? N PTT RESULTS MUST BE CALLED IF PT ON HEPARIN!!! Y Activated 23.6 - SECONDS High RESULTS Feb 03 partial 34.0 CALLED TO 2017 8:50 thrombpla D. PM stin time MATTHIEU (aPTT) RN in 02/03/17 Platelet 2138 poor Yu,Rosibel plasma by hn Coagulati on assay Lactate [Moles/volume] in Blood Observa Value Referen Units Interpr Notes Date ti etation Range Lactate 0.4 - 2.0 mmol/L [...] Normal No Feb 03 ls/100 12.0 informati 2017 8:50 leukocyte on in PM s in source Blood by data Automated count Granulocy 1.8 - 7.8 K/mm3 High No Feb 03 lauryn informati 2016 8:50 [#/volume on in PM ] in source Blood by data Automated count Granulocy 37.0 - % Normal No Feb 03 lauryn/100 80.0 informati 2017 8:50 leukocyte on in PM [...] % Normal No Feb 03 es informati 2017 [...] mg/dl High No Feb 03 [Mass/vol informati 2017 8:44 ume] in on [...] mg/dl Normal No Jan 31 [Mass/vol informati 2017 8:33 ume] in on in PM Capillary source blood by data Glucomete r Glucose [Mass/volume] in Capillary blood by Glucometer Observa Value Referen Units Interpr Notes Date tion ce etation Range Glucose 70 - 110 mg/dl High No Jan 31 [Mass/vol informati 2017 4:48 ume] in on in PM Capillary [...] 145 mmoL/L Normal No Jan 31 [Moles/vo 2016 7:00 lume] in on in AM Serum or source Plasma data Aspartate 15 - 37 U/L High No Jan 312016 7:00 aminotran on in AM sferase source [Enzymati data c activity/ volume] in Serum or Plasma Alanine 12 - 78 U/L No Jan 31 aminotran informati informati 2016 7:00 sferase on in on in AM [Enzymati source source c data data activity/ volume] in Serum or Plasma Protein 6.4 - 8.2 gm/dL Low No Jan 31 [Mass/vol inform2016 7:00 ume] in on in AM Serum [...] 0.4 K/mm3 Normal No Jan 31 ls 2016 7:00 [#/volume on in AM ] in source Blood by data Automated count Eosinophi 0.1 - % Normal No Jan 31 ls/100 12.0 inform2016 7:00 leukocyte on in AM s in source Blood by data Automated count Granulocy 1.8 - 7.8 K/mm3 Normal No Jan 31 lauryn informati 2016 7:00 [#/volume on in AM ] in source Blood by data Automated count Granulocy 37.0 - % Normal No Jan 31 lauryn/100 80.0 2016 7:00 leukocyte on in AM s in source Blood by data Automated count Hematocri 37.0 - % Low No Jan 31 t [Volume 47.0 2016 7:00 on in AM Fraction] source of Blood data Hemoglobi 12.2 - g/dL Low No Jan 31 n 16.2 2016 7:00 [Mass/vol on in AM ume] [...] High No Jan 31 [Mass/vol informati 2017 6:00 ume] in on in AM Capillary [...] SENT tion in tion in tion in ti in 4:05 AM ied in TO source [...] Normal No Jan 17 [Mass/vol informati 2016 8:36 ume] in on [...] Jan 29 omia informa informa informa informa 2017 [Presen tion [...] - 9 % Normal No Jan 29 /100 informati [...] Normal No Jan 17 dioxide, 32.0 informati 2016 9:20 total on [...] mg/dl High No Jan 29 [Mass/vol informati 2017 6:24 ume] in on in AM Capillary [...] No No Jan 29 [Mass/vol informati informati 2017 4:44 ume] in on in on in AM Unspecifi source source ed data data specimen Methadone <300 ng/mL No No Jan 29 informati informati 2017 4:44 [Mass/vol on in [...] Normal No Oct 16 [Mass/vol informati 2016 8:38 ume] in on in PM Capillary source blood by data Glucomete r Glucose [Mass/volume] in Capillary blood by Glucometer Observa Value Referen Units Interpr Notes Date tion ce etation Range Glucose 70 - 110 mg/dl Normal No Oct 16 [Mass/vol informati 2016 4:57 ume] in [...] 23 - 27 MMOL/L High No Jan 16 dioxide, informati 2016 8:00 total on in AM [Moles/vo source lume] in data Arterial blood CBC W Auto Differential panel in Blood Observa Value Referen Units Interpr Notes Date tion ce etation Range COMMENTS TO BILLING AND ACCOUNTING STAFF ASSISTANT: 0600 Basophils 0 - 0.2 K/MM3 Normal No Jan 28 informati 2016 6:17 [#/volume on in AM ] in source Blood by data Automated count Basophils 0.1 - 2.0 % Normal No Jan 28 /100 informati 2017 6:17 leukocyte on in [...] Erythrocy 11.5 - % High No Jan 28 te 17.5 informati 2016 6:17 distribut on in AM ion width source [Entitic data volume] by Automated count Leukocyte 4.8 - K/MM3 High No Jan 16 s 10.8 informati 2016 6:17 [#/volume on in AM ] in source Blood data Comprehensive metabolic 2000 panel in Serum or Plasma Observa Value Referen Units Interpr Notes Date tion ce etation Range COMMENTS TO BILLING AND ACCOUNTING STAFF ASSISTANT: 0600 Albumin/G 1.1 - 1.8 No Low No Jan 28 lobulin informati informati 2017 6:17 [Mass on [...] Aspartate 15 - 37 U/L No No Oct 16 informati informati 2017 6:17 aminotran on [...] High No Jan 27 [Mass/vol informati 2016 4:51 ume] in on [...] Interpr Notes Date ti ce etation Range Urea 7 - 18 mg/dL High No Jan 27 nitrogen informati 2017 5:35 [Mass/vol on in AM ume] in source Serum or data Plasma Calcium 8.5 - mg/dL Normal No Jan 15 [Mass/vol 10.1 informati 2017 5:35 ume] in on in AM Serum or source Plasma data Chloride 98 - 107 mmoL/L Normal No Oct 15 [Moles/vo inform2016 5:35 lume] in on in [...] 0.1 - 1.0 K/mm3 Normal No Jan 27 informati 2016 5:35 [...] 3.4 - 5.0 gm/dL Low No Jan 26 [Mass/vol informati 2016 1:15 ume] in on [...] Normal No Jan 14 [Mass/vol 10.1 informati 2016 1:15 ume] in on in PM Serum or source Plasma data Chloride 98 - 107 mmoL/L Normal No Jan 14 [Moles/vo informati 2016 1:15 lume] in on in PM Serum or source Plasma data Carbon 21.0 - mmoL/L High No Jan 14 dioxide, 32.0 informati 2016 1:15 total on in PM [Moles/vo source [...] formula Estimated 59- ML/MIN Low REFERENCE Jan 14 RANGE: 2017 1:15 glomerula >60 PM [...] - 37 U/L Low No Jan 14 informati 2016 1:15 aminotran on in [...] High No Oct 14 [Mass/vol informati 2017 ume] in on in 12:13 PM Capillary [...] gm/dL Normal No Sep 15 [Mass/vol informati 2016 ume] [...] 9.3 % Normal No Sep 15 /100 2016 leukocyte on in 10:20 PM s [...] Normal No Sep 15 s 10.8 informati 2017 [#/volume on in 10:20 PM [...] 145 mmoL/L Normal No Dec 04 [Moles/vo inform2016 1:25 lume] in on in PM Serum or source Plasma data Natriutietic peptide B [Mass/volume] in Serum or Plasma Observa Value Referen Units Interpr Notes Date tion ce etation Range Natriutie 0 - 100 pg/mL High No Dec 04 tic inform2016 1:25 peptide B on in PM source [Mass/vol data ume] in Serum or Plasma CBC W Auto Differential panel in Blood Observa Value Referen Units Interpr Notes Date tion ce etation Range Basophils 0 - 0.2 K/MM3 Normal No Dec 042016 1:25 [#/volume on in PM ] in source Blood by data Automated count Basophils 0.1 - 2.0 % Normal No Dec 04 informati 2016 1:25 leukocyte on in PM [...] 7.8 K/mm3 High No Dec 04 lauryn ati 2016 1:25 [#/volume on in PM [...] 4.5 K/mm3 Normal No Dec 04 es 2016 1:25 [#/volume on in PM ] in source Unspecifi data ed specimen by Automated count Lymphocyt 10 - 50.0 % Normal No Dec 04 es 2016 1:25 [#/volume on in PM ] in source Unspecifi data ed specimen by Automated count Erythrocy 27 - 31.2 pg Low No Dec 04 te mean inform2016 1:25 corpuscul on in PM ar source hemoglobi data n [Entitic mass] Erythrocy 31.8 - g/dl Low No Dec 04 te mean 35.4 inform2016 1:25 corpuscul on in PM ar source hemoglobi data n concentra tion [Mass/vol ume] by Automated count Erythrocy 82.2 - fl Low No Dec 04 te mean 97.8 informati 2016 1:25 corpuscul on in PM ar volume source [Entitic data volume] by Automated count Monocytes 0.1 - 1.0 K/mm3 Normal No Dec 04 inform2016 1:25 [#/volume [...] 142 - 424 K/mm3 Normal No Dec 042016 1:25 [#/volume on [...] 18 mg/dL High No Sep 17 nitrogen inform2016 [Mass/vol on in 11:34 AM ume] in source Serum or data Plasma Calcium 8.5 - mg/dL Normal No Sep 17 [Mass/vol 10.1 2016 ume] in on in 11:34 AM [...] mg/dL High No Sep 17 e 1.02 inform2016 [Mass/vol on in 11:34 AM ume] in [...] 59- ML/MIN Low REFERENCE August 30 RANGE: 2017 9:30 glomerula >60 AM r ML/MIN/1. filtratio [...]
--- OUTSIDE RECORDS SUMMARY | 2017-03-09 06:24 | External Medical Summary Rpt ---
[...] IS Plasma CONSIDERE D LEGALLYIN [facility]XICATED [facility]ER [facility] [place] [employer] LAW. Comprehensive metabolic 2000 panel in Serum [...] surgery Pulmonary embolism CVARenal failure Acute neurologi reica disease Atrial fib. Comprehensive metabolic 2000 panel [...] Date tion ce etation Range COMMENTS TO CUSTOMER SUCCESS REPRESENTATIVE: 0600 Basophils 0 - 0.2 K/MM3 [...] Date tion ce etation Range COMMENTS TO CUSTOMER SUCCESS REPRESENTATIVE: 0600 Albumin/G 1.1 - 1.8 No [...]
[2017-03-09 06:43] LABS: BUN 20 mg/dL (7-18)
[2017-03-09 06:46] LABS: GFR (ESTIMATED) 56 ML/MIN (59-)
--- NOTE | 2017-03-09 07:19 | Emergency Room Report ---
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 DENIES INJURY. CARDIAC HX, HX OF AFIB. 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 N Clinical Suspician of Infection? N Mental Status: 1 - Regular (Normal Baseline) Sepsis Risk:Low Sepsis Risk Have you (or family members/close friends) recently traveled outside the [place]? N If Yes, where/when: Have you had exposure to infectious disease within the past month? N TB? Other? Specify: Comment The patient complains of pain in her LEFT arm for a couple of days. She denies trauma. She indicates the pain by pointing to her LEFT wrist. Has some slight pain in her LEFT elbow. The pain increases with movement. She says she has a prior history of gout. She is repeatedly requesting medication for pain. She is noted to be on Lortab 7.5 mg at home. ALLERGIES Coded Allergies: Sulfa (Sulfonamide Antibiotics) (Intermediate, I-HIVES 07/17/16) Home Medications Active Scripts Apixaban (Eliquis) 2.5 MG PO BID #60 TAB Ref 1 Prov: 07/13/16 ROPINIROLE HCL (Requip) 4 MG PO QHS #30 TAB Ref 1 Prov: 02/01/17 HYDROCODONE/ACETAMINOPHEN (LORTAB 5-325 (generic)) 1 TAB PO TIDP PRN PAIN #60 TAB Prov: 02/01/17 Gabapentin (Neurontin) 200 MG PO TID #120 CAPSULE Ref 1 Prov: 02/01/17 Quetiapine Fumarate (Seroquel Xr) 200 MG PO QHS #30 Ref 1 Prov: 02/01/17 TRIAMCINOLONE ACET 0.1% (Triamcinolone Acetonide) 1 SERGO TP BID 7 Days Prov: 07/28/16 Reported Medications Metformin HCL (Metformin) 500 MG PO BID #60 TAB Paroxetine (Paxil) 40 MG PO QHS Conjugated Estrogens (Premarin 0.3MG. Tablet) 0.3 MG PO DAILY LISINOPRIL (Lisinopril) 2.5 MG PO DAILY Levothyroxine Sodium (Levothyroxine) 0.05 MG PO DAILY DILTIAZEM HCL (Cartia Xt) 240 MG PO DAILY #30 CAP Albuterol Sulfate (Ventolin Hfa) 2 PUFF IH QIDP Albuterol-Ipratropium (Duoneb 0.5 MG-3 MG/3 Ml Soln) 3 ML IN TID Sucralfate (Carafate) 1 GM PO TID Lansoprazole (Lansoprazole) 30 MG PO DAILY Device (Oxygen (Concentrator)) 1 UNIT XX UD #2 Montelukast Sodium (Singulair) 10 MG PO QHS MAGNESIUM OXIDE (Magnesium Oxide) 400 MG PO QHS Atorvastatin Calcium (Atorvastatin) 80 MG PO QHS History Medical History General CAD? No Angina: No NV: No Hypertension? Yes Hyperlipidemia? Yes CHF? Yes DVT? No PE? No COPD? Yes Asthma? Yes Anemia? No GERD? No Gastric ulcers? No GI Bleed? No Hernia? No Thyroid Problems? Yes Hypothyroidism? Yes CVA? No Seizures? Yes Diabetes? Yes Insulin Dependent: No Insulin Pump: No Home FSBS? No Renal Insuffiency? Yes End Stage Renal Disease? No UTI? Yes Stones? No BPH? No GB Disease: No Nephritic Syndrome? No Asplenia? No Hepatitis? No Sickle Cell Disease? No Arthritis? Yes Migraines? No Cataracts? Yes Glaucoma? No MRSA? No HIV? No TB? No Anxiety? Yes Depression? Yes Cancer? Yes Site: LUNG, SKIN CA More? Yes Additional hx: [place], AFIB Immunization Hx Ped.Immunizations UTD Yes DT/Tetanus 10/15/12 Flu 2017-18FSN Pneumonia Received In Past Surgical Hx Previous Surgery?Y L-LUMPECTOMY X2 TEETH EXTRACTED, UPPER TUMOR FROM R WRIST Tubal Ligation R-UPPER AND LOWER LOBECTO HYSTERECTOMY SKIN CANCER OF NOSE BI-LAT CATARACTS RIGHT ANKLE Family History Family Hx Diabetes Yes CAD Yes Hypertension Yes Hyperlipidemia Yes Cancer Yes TB No Social History Smoking Hx Smoker: Current Every Day Smoker Tobacco: Yes Type Cigarettes Packs/day 1 1/2 - 2 Packs Are you/the child exposed to second-hand smoke: Yes Alcohol Alcohol: No Additionial History Additional History Frequent ED/UTC visits noted. Review of Systems All Other Systems Reviewed and Negative Constitutional denies fever Musculoskeletal joint pain Physical Exam Vital Signs Vital Signs Date Time Temp Pulse Resp B/P Pulse O2 O2 Flow FiO2 Ox Delivery Rate 03/09 0759 107 20 132/72 97 2 03/09 0754 20 03/09 0727 97 20 112/72 97 2 03/09 0631 108 18 88/50 96 2 03/09 0613 18 03/09 0611 98 03/09 0556 98.1 105 18 118/76 99 General Appearance no apparent distress Eye Exam - bilateral eye normal exam, bilateral eye PERRL, bilateral eye EOMI Ear, Nose, Throat hearing grossly normal, normal ENT inspection Neck normal inspection, non-tender, supple, full range of motion Respiratory Status Yes: trachea midline, chest symmetrical, non tender chest. No: respiratory distress. Lung Sounds bilateral: normal breath sounds, lungs clear. Cardiovascular no peripheral edema, no gallop, no JVD, no murmur, no rub, normal peripheral pulses, irregularly irregular Peripheral Pulses Pulses normal Yes Gastrointestinal normal bowel sounds, normal exam, non tender, soft, no organomegaly Extremities LEFT wrist is mildly warm, perhaps mild edema compared to RIGHT. no detectable significant effusion. She has good active range of motion. Elbow does not appear to be tender and she does not appear to have pain with movement. Pain seems localized to the wrist. Neurologic alert, kiln stoker II-XII nml as tested, normal exam, oriented x 3 Mental status normal mood/affect Skin intact, normal color, warm/dry Medical Decision Making LABS/Meds/Orders Pt receiving controlled substance in ED? Yes Parvez was queried for this patient? Yes Comment [id number] 16 rxs. last rx 90 lortab 7.5mg on 02/25/17. Results/Orders Laboratory Tests 03/09/17 0645: Lactic Acid 0.8 03/09/17 0510: Sodium 141, Potassium 3.1 L, Chloride 99, Carbon Dioxide 32, BUN 20 H, Creatinine 1.0, Estimated Creat Clear 90, Estimated GFR (MDRD) 56 L, Glucose 108 H, Calcium 9.1, Total Bilirubin 0.5, AST 22, ALT 28, Alkaline Phosphatase 147 H, Creatine Kinase 22 L, CK-MB (CK-2) Rel Index 2.3, CK and CKMB Interp < 0.5, Troponin I < 0.02, Total Protein 6.9, Albumin 2.7 L, Globulin 4.2 H, Albumin/Globulin Ratio 0.6 L, WBC 10.1, RBC 4.85, Hgb 11.1 L, Hct 36.7 L, MCV 75.6 L, RDW 17.8 H, Plt Count 227, MPV 7.3 L, Gran % 78.4, Gran # 7.9 H, Lymphocytes % 13.2, Monocytes % 6.2, Eosinophils % 2.0, Basophils % 0.2, Lymphocytes # 1.3, Monocytes # 0.6, Eosinophils # 0.2, Basophils # 0.0, PUBS MCHC 30.3 L, MCH 22.9 L Current Medication Orders Sig/Curry Start time Last Medication Dose Route Stop Time Status Admin Methylprednisolone 0 .STK-MED ONE 03/09 749 DC Sodium Succinate .ROUTE Morphine Sulfate 0 .STK-MED ONE 03/09 0748 DC .ROUTE Methylprednisolone 80 MG ONCE ONE 03/09 745 DC 03/09 Sodium Succinate IV 03/09 0746 0755 Morphine Sulfate 4 MG ONCE ONE 03/09 745 DC 03/09 IV 03/09 0746 0754 Aspirin 324 MG ONCE ONE 03/09 06 DC 03/09 PO 03/09 0616 0612 Nitroglycerin 0.4 MG [id number] PRN 03/09 0615 AC 03/09 SL 0613 Sodium Chloride 10 ML PRN PRN 03/09 06 AC IV 03/10 0607 Aspirin 0 .STK-MED ONE 03/09 0612 DC .ROUTE Nitroglycerin 0 .STK-MED ONE 03/09 0611 DC SL Aspirin 0 .STK-MED ONE 03/09 0610 DC .ROUTE Orders Procedure Date/time Status STABILIZE JOINT 03/09 0742 Active WRIST-3 VIEWS-LT 03/09 07 Active CULTURE, BLOOD 03/09 637 Active LACTIC ACID 03/09 637 Complete CULTURE, SPUTUM 03/09 636 Active ELECTROCARDIOGRAM REQUEST 03/09 609 Active CHEST-PORTABLE 03/09 609 Active IV SALINE LOCK 03/09 609 Active OXYGEN PER NURSE 03/09 609 Active CBC WITH AUTO DIFF 03/09 609 Complete CARDIAC ENZYMES 03/09 609 Complete CHEM 12 PROFILE 03/09 609 Complete 12 LEAD EKG-NEGIN (INITIAL) 03/09 0600 Active CM/EKG CM/EKG Comments EKG interpreted by Pancho Perez MD: Rhythm: atrial fibrillation Rate: 113 Hiller: normal Ectopy: none Conduction: normal ST Segment Changes: none T Wave Changes: none Q Waves: none No evidence of acute ischemia or injury Prior electrocardiagrams reviewed. No change from prior tracings. XRAY/CT/US XRAY/CT/US XRAY chest, wrist Comment X-ray interpreted by Pancho Perez M.D.: Chest: Cardiomegaly, chronic changes in the bases LEFT wrist X-ray interpreted by Pancho Perez MD. Negative for fracture, dislocation, or foreign body. Progress - I have low suspicion for septic arthritis. The patient says that she has a history of gout, possible gouty arthritis. She does not currently have an effusion, arthrocentesis is not indicated. Given that she is on eliquis, including risk of bleeding, I would avoid arthrocentesis unless she develops an effusion. Also, given that she is on eliquis, will avoid nonsteroidal anti-inflammatories. Short course of prednisone, which I feel would give less risk of interaction and bleeding. She is already on Lortab for pain. Departure Departure Disposition DC Home or Self Care(routine) Clinical Impression Primary Impression: Arthritis of left wrist Condition STABLE Referrals Abhishek Breaux MD (Family) Patient Instructions DI for Arthritis Additional Instructions Continue using Lortab for pain. Wear LEFT wrist brace for 1 week. Prednisone as prescribed. See your physician next week for reevaluation. Return to the emergency department if increasing pain, swelling, redness, or if you develop a fever. Prescriptions Current Visit Scripts Prednisone (Prednisone 10MG) 10 MG PO DAILY #27 TAB po on days 1-2, then decrease dose by 1 pill per day until gone ED Critical Care Critical Care No at 0802
[2017-03-09] MEDS ORDERED: PREDNISONE 10MG10 MG PO (07:44)
--- NOTE | 2017-03-09 08:24 | RADIOLOGY REPORT PS360 ---
CHEST-PORTABLE COMPARISON: Portable upright chest 03/03/2017 HISTORY: S pain TECHNIQUE: Portable upright chest FINDINGS: This is a somewhat poor inspiration. Again noted is mild generalized cardio megaly without evidence of failure. Post surgical changes are seen right upper hemithorax with surgical clips overlying the right hilum. There is no acute infiltrate and is no pleural fluid. IMPRESSION: Stable cardiomegaly, no acute chest pathology noted
--- NOTE | 2017-03-09 08:26 | RADIOLOGY REPORT PS360 ---
WRIST-3 VIEWS-LT COMPARISON: Left wrist 06/03/2014 HISTORY: Left wrist pain TECHNIQUE: Portable AP lateral and oblique views FINDINGS: The distal radius and ulna appear intact. The carpal bones appear normal for minor narrowing of the first carpometacarpal joint. The soft tissues are normal. IMPRESSION: Minor osteoarthritis base of thumb otherwise negative left wrist
[2017-03-09 08:31] VITALS: BP 132/72
== END 2017-03-09 08:32 | disposition home or self-care (01) ==
LOC: ER 05:54
PROVIDERS: Emergency Medicine
DX: M19.032 Primary osteoarthritis, left wrist (principal); I48.2 Chronic atrial fibrillation; Z79.84 Long term (current) use of oral hypoglycemic drugs; E11.9 Type 2 diabetes mellitus without complications; Z79.01 Long term (current) use of anticoagulants; J44.9 Chronic obstructive pulmonary disease, unspecified; E03.9 Hypothyroidism, unspecified; N28.9 Disorder of kidney and ureter, unspecified; F41.8 Other specified anxiety disorders; F17.210 Nicotine dependence, cigarettes, uncomplicated